=== PATIENT | female | born 1965 | race Two or more races ===

== ENCOUNTER 2020-09-10 08:00 | Outpatient (RCR) | payer MEDICARE, MEDICAID, SELFPAY | END 2020-10-22 13:23 | disposition other institution (70) | LOC: HO.PT 08:00 | PROVIDERS: PCP Family Medicine; Visit Provider Family Medicine | DX: M79.7 Fibromyalgia (principal) | CPT/HCPCS: 97110; 97140 ==

== ENCOUNTER → 2020-11-04 10:37 | Outpatient (BNVA) | payer MEDICARE, MEDICAID, SELFPAY | PROVIDERS: PCP Family Medicine; Visit Provider Nurse Practitioner | DX: Z13.89 Encounter for screening for other disorder (principal) | CPT/HCPCS: Q3014 ==

== ENCOUNTER → 2020-12-16 12:43 | Outpatient (BNVA) | payer MEDICARE, MEDICAID, SELFPAY | PROVIDERS: PCP Family Medicine; Visit Provider Nurse Practitioner | DX: Z13.89 Encounter for screening for other disorder (principal) | CPT/HCPCS: Q3014 ==

== ENCOUNTER → 2021-01-13 07:49 | Outpatient (BNVA) | payer MEDICARE, MEDICAID, SELFPAY | PROVIDERS: PCP Family Medicine; Visit Provider Student in an Organized Health Care Education/Training Program | DX: M25.50 Pain in unspecified joint (principal); M79.7 Fibromyalgia; Z79.899 Other long term (current) drug therapy | CPT/HCPCS: 99212 ==

== ENCOUNTER → 2021-04-19 08:00 | Outpatient (BNVA) | payer MEDICARE, MEDICAID, SELFPAY | PROVIDERS: PCP Family Medicine; Visit Provider Student in an Organized Health Care Education/Training Program | DX: M25.50 Pain in unspecified joint (principal); M77.31 Calcaneal spur, right foot; M77.32 Calcaneal spur, left foot; Z79.899 Other long term (current) drug therapy | CPT/HCPCS: 99212 ==

== ENCOUNTER 2021-04-20 07:38 | Outpatient (REF) | payer MEDICARE, MEDICAID, SELFPAY ==
--- NOTE | ~2021-04-20 | XR_ITS ---
EXAMINATION: XR BILATERAL HAND AND WRIST CLINICAL INFORMATION: Bilateral hand and wrist pain. COMPARISON: Bilateral hands and wrists 05/01/2020 TECHNIQUE: 4 views of each hand and wrist. FINDINGS: RIGHT: Again seen is a plate and screw device distal radius. The hardware appears stable. Degenerative changes are again noted at interphalangeal joints, unchanged when compared to the prior study. Mild degenerative changes are once again seen at the 1st metacarpal-carpal joint as well as the 1st metacarpal-phalangeal joint. No fractures are seen. LEFT: Again seen are mild degenerative changes at the interphalangeal joints with minimal degenerative changes seen at the 1st carpometacarpal joint as well as the 1st metacarpal phalangeal joint. Overall, findings are similar to the prior study. XR/XR hand wrist LT IMPRESSION: Mild degenerative changes. No significant interval change from prior study. Stable postoperative changes on the right.
--- NOTE | ~2021-04-20 | XR_ITS ---
EXAMINATION: XR BILATERAL HAND AND WRIST CLINICAL INFORMATION: Bilateral hand and wrist pain. COMPARISON: Bilateral hands and wrists 05/01/2020 TECHNIQUE: 4 views of each hand and wrist. FINDINGS: RIGHT: Again seen is a plate and screw device distal radius. The hardware appears stable. Degenerative changes are again noted at interphalangeal joints, unchanged when compared to the prior study. Mild degenerative changes are once again seen at the 1st metacarpal-carpal joint as well as the 1st metacarpal-phalangeal joint. No fractures are seen. LEFT: Again seen are mild degenerative changes at the interphalangeal joints with minimal degenerative changes seen at the 1st carpometacarpal joint as well as the 1st metacarpal phalangeal joint. Overall, findings are similar to the prior study. XR/XR hand wrist RT IMPRESSION: Mild degenerative changes. No significant interval change from prior study. Stable postoperative changes on the right.
[2021-04-20 08:37] LABS: MANUAL DIFF FLAG NO
[2021-04-20 08:47] LABS: Basophils Percent Auto 0.6 % (0-2); Eosinophils Absolute Auto 0.2 X10*3/uL (0.0-0.4); Eosinophils Percent Auto 3.8 % (0-4); Hemoglobin 13.2 g/dl (12.0-16.0); Imm Gran Abs Auto 0.01 X10*3/uL (0.00-0.03); Imm Gran Pct Auto 0.2 % (0.0-0.4); Lymphocytes Absolute Auto 2.2 X10*3/uL (1.2-4.9); Lymphocytes Percent Auto 40.9 % (20-40); Mean Corpuscular Hemoglobin 29.8 pg (27.0-33.0); Mean Corpuscular Volume 90.3 fL (80-98); Mean Platelet Volume 11.5 fL (9.4-12.3); Monocytes Absolute Auto 0.5 X10*3/uL (0.1-1.2); Monocytes Percent Auto 8.6 % (2-11); Neutrophils Absolute Auto 2.5 X10*3/uL (2.0-8.3); Neutrophils Percent Auto 45.9 % (45-73); Platelet Count 174 X10*3/uL (160-400); Red Blood Count 4.43 X10*6/uL (4.20-5.50); Red Cell Distribution Width 12.4 % (11.0-16.0); White Blood Count 5.3 X10*3/uL (4.8-10.8)
[2021-04-20 09:14] LABS: Alanine Aminotransferase 12 U/L (0-31); Albumin Level 3.9 g/dL (3.5-5.0); Alkaline Phosphatase 90 U/L (39-117); Anion Gap 8 (12-20); Aspartate Amino Transferase 23 U/L (5-31); Bilirubin Total 0.6 mg/dL (0.0-1.0); Blood Urea Nitrogen 18 mg/dL (9-16); C Reactive Protein 0.42 mg/dL (< or = 0.50); Calcium 9.3 mg/dL (8.4-10.2); Carbon Dioxide 28 mmol/L (22-29); Chloride 107 mmol/L (96-108); Estimated Glomerular Filt Rate > 60; Glucose Random 96 mg/dL (60-115); Potassium 4.3 mmol/L (3.3-5.1); Sodium 139 mmol/L (135-145); Total Protein 6.8 g/dL (6.5-8.0)
[2021-04-20 09:32] LABS: Erythrocyte Sedimentation Rate 23 MM/HR (0-20)
== END 2021-04-20 07:39 | disposition home or self-care (01) ==
LOC: HO.LAB 07:38
PROVIDERS: PCP Family Medicine; Visit Provider Student in an Organized Health Care Education/Training Program
DX: M25.50 Pain in unspecified joint (principal)
CPT/HCPCS: 36415; 73110; 73130; 80053; 85025; 85652; 86140

== ENCOUNTER 2021-04-22 09:00 | Outpatient (RCR) | payer MEDICARE, MEDICAID, SELFPAY | END 2021-06-17 09:13 | disposition home or self-care (01) | LOC: HO.PT 09:00 | PROVIDERS: PCP Family Medicine; Visit Provider Family Medicine | DX: M72.2 Plantar fascial fibromatosis (principal); M54.2 Cervicalgia; M77.31 Calcaneal spur, right foot; M77.32 Calcaneal spur, left foot | CPT/HCPCS: 97033; 97035; 97110; 97140; 97161; 97530 ==

== ENCOUNTER → 2021-06-16 14:16 | Outpatient (BNVA) | payer OTHER, SELFPAY | PROVIDERS: PCP Family Medicine; Visit Provider Nurse Practitioner | DX: K21.9 Gastro-esophageal reflux disease without esophagitis (principal); K59.04 Chronic idiopathic constipation; R14.0 Abdominal distension (gaseous) | CPT/HCPCS: 99212 ==

== ENCOUNTER 2021-10-03 08:00 | Outpatient (RCR) | payer OTHER, SELFPAY | END 2021-10-03 11:04 | disposition home or self-care (01) | LOC: HO.PT 08:00 | PROVIDERS: PCP Family Medicine; Visit Provider Orthopaedic Surgery | DX: M72.2 Plantar fascial fibromatosis (principal) | CPT/HCPCS: 97110; 97140; 97162; 97530 ==

== ENCOUNTER → 2021-10-04 08:18 | Outpatient (BNVA) | payer OTHER, SELFPAY | PROVIDERS: PCP Family Medicine; Visit Provider Nurse Practitioner Family | DX: M25.50 Pain in unspecified joint (principal); M77.31 Calcaneal spur, right foot; M77.32 Calcaneal spur, left foot; M25.512 Pain in left shoulder; Z79.899 Other long term (current) drug therapy | CPT/HCPCS: 99212 ==

== ENCOUNTER 2021-10-20 11:43 | Outpatient (REF) | payer OTHER, SELFPAY ==
--- NOTE | ~2021-10-20 | XR_ITS ---
EXAMINATION: XR SHOULDER, LEFT CLINICAL INFORMATION: Left shoulder pain. COMPARISON: None TECHNIQUE: Four views of the left shoulder. FINDINGS: The bony alignment is intact. The cortices are intact. Mild osteophyte formation is seen at the acromioclavicular joint. Mild subchondral degenerative cysts are noted within the humeral head. The subacromial space is unremarkable. The soft tissues are unremarkable. 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 Soft tissues are unremarkable.
[2021-10-20 12:04] LABS: MANUAL DIFF FLAG NO
[2021-10-20 12:23] LABS: Basophils Percent Auto 0.5 % (0-2); Eosinophils Absolute Auto 0.2 X10*3/uL (0.0-0.4); Hematocrit 44.1 % (37.0-47.0); Hemoglobin 14.5 g/dl (12.0-16.0); Imm Gran Abs Auto 0.02 X10*3/uL (0.00-0.03); Imm Gran Pct Auto 0.3 % (0.0-0.4); Lymphocytes Absolute Auto 2.4 X10*3/uL (1.2-4.9); Lymphocytes Percent Auto 31.6 % (20-40); Mean Corpuscular HGB Conc 32.9 g/dl (31.0-35.0); Mean Corpuscular Hemoglobin 29.6 pg (27.0-33.0); Mean Platelet Volume 10.5 fL (9.4-12.3); Monocytes Absolute Auto 0.5 X10*3/uL (0.1-1.2); Monocytes Percent Auto 6.9 % (2-11); Neutrophils Absolute Auto 4.4 x10*3/uL (2.0-8.3); Neutrophils Percent Auto 58.7 % (45-73); Platelet Count 212 X10*3/uL (160-400); Red Cell Distribution Width 12.9 % (11.0-16.0); White Blood Count 7.5 X10*3/uL (4.8-10.8)
[2021-10-20 12:39] LABS: Alanine Aminotransferase 17 U/L (0-31); Albumin Level 4.4 g/dL (3.5-5.0); Alkaline Phosphatase 98 U/L (39-117); Anion Gap 13 (12-20); Aspartate Amino Transferase 23 U/L (5-31); Bilirubin Total 0.4 mg/dL (0.0-1.0); Blood Urea Nitrogen 17 mg/dL (9-16); C Reactive Protein 1.08 mg/dL (< or = 0.50); Carbon Dioxide 27 mmol/L (22-29); Chloride 106 mmol/L (96-108); Estimated Glomerular Filt Rate > 60; Glucose Random 80 mg/dL (60-115); Potassium 4.2 mmol/L (3.3-5.1); Sodium 142 mmol/L (135-145); Total Protein 8.2 g/dL (6.5-8.0)
[2021-10-20 13:02] LABS: Vitamin D 25-OH Total 19.9 ng/mL (>30)
[2021-10-20 13:19] LABS: Erythrocyte Sedimentation Rate 30 MM/HR (0-20)
== END 2021-10-20 11:44 | disposition home or self-care (01) ==
LOC: HO.XRAY 11:43
PROVIDERS: PCP Family Medicine; Visit Provider Nurse Practitioner Family
DX: M25.50 Pain in unspecified joint (principal); M25.512 Pain in left shoulder
CPT/HCPCS: 36415; 73030; 80053; 82306; 85025; 85652; 86140

== ENCOUNTER → 2021-12-20 14:39 | Outpatient (BNVA) | payer OTHER, SELFPAY | PROVIDERS: PCP Family Medicine; Referring Provider Family Medicine; Visit Provider Nurse Practitioner | DX: K59.04 Chronic idiopathic constipation (principal); K21.9 Gastro-esophageal reflux disease without esophagitis; R14.0 Abdominal distension (gaseous) | CPT/HCPCS: 99212 ==

== ENCOUNTER → 2022-01-19 15:07 | Outpatient (BNVA) | payer OTHER, SELFPAY | PROVIDERS: PCP Family Medicine; Referring Provider Family Medicine; Visit Provider Nurse Practitioner | DX: K30 Functional dyspepsia (principal); K59.04 Chronic idiopathic constipation; K21.9 Gastro-esophageal reflux disease without esophagitis | CPT/HCPCS: 99212 ==

== ENCOUNTER → 2022-02-01 08:52 | Outpatient (BNVA) | payer OTHER, SELFPAY | PROVIDERS: PCP Family Medicine; Visit Provider Nurse Practitioner Family | DX: M25.50 Pain in unspecified joint (principal); M77.31 Calcaneal spur, right foot; M77.32 Calcaneal spur, left foot; M25.512 Pain in left shoulder; E55.9 Vitamin D deficiency, unspecified; Z79.899 Other long term (current) drug therapy | CPT/HCPCS: 99212 ==

== ENCOUNTER 2022-02-03 07:37 | Outpatient (REF) | payer OTHER, SELFPAY ==
[2022-02-03 07:59] LABS: MANUAL DIFF FLAG NO
[2022-02-03 08:06] LABS: Basophils Percent Auto 0.8 % (0-2); Eosinophils Absolute Auto 0.1 X10*3/uL (0.0-0.4); Eosinophils Percent Auto 2.7 % (0-4); Hematocrit 43.6 % (37.0-47.0); Imm Gran Abs Auto 0.01 X10*3/uL (0.00-0.03); Imm Gran Pct Auto 0.2 % (0.0-0.4); Lymphocytes Absolute Auto 1.9 X10*3/uL (1.2-4.9); Lymphocytes Percent Auto 37.4 % (20-40); Mean Corpuscular HGB Conc 32.1 g/dl (31.0-35.0); Mean Corpuscular Hemoglobin 29.2 pg (27.0-33.0); Mean Platelet Volume 10.2 fL (9.4-12.3); Monocytes Absolute Auto 0.4 X10*3/uL (0.1-1.2); Monocytes Percent Auto 7.4 % (2-11); Neutrophils Absolute Auto 2.7 x10*3/uL (2.0-8.3); Neutrophils Percent Auto 51.5 % (45-73); Platelet Count 194 X10*3/uL (160-400); Red Blood Count 4.79 X10*6/uL (4.20-5.50); White Blood Count 5.2 X10*3/uL (4.8-10.8)
[2022-02-03 08:40] LABS: Alanine Aminotransferase 22 U/L (0-31); Albumin Level 4.1 g/dL (3.5-5.0); Alkaline Phosphatase 94 U/L (39-117); Anion Gap 10 (12-20); Aspartate Amino Transferase 24 U/L (5-31); Bilirubin Total 0.7 mg/dL (0.0-1.0); Blood Urea Nitrogen 13 mg/dL (9-16); C Reactive Protein 0.37 mg/dL (< or = 0.50); Calcium 9.5 mg/dL (8.4-10.2); Carbon Dioxide 28 mmol/L (22-29); Chloride 106 mmol/L (96-108); Estimated Glomerular Filt Rate > 60; Glucose Random 100 mg/dL (60-115); Potassium 3.9 mmol/L (3.3-5.1); Sodium 140 mmol/L (135-145); Total Protein 7.5 g/dL (6.5-8.0)
[2022-02-03 08:45] LABS: Erythrocyte Sedimentation Rate 22 MM/HR (0-20)
[2022-02-08 13:41] LABS: Vitamin D 25-OH, D2 6 ng/mL; Vitamin D 25-OH, D3 22 ng/mL; Vitamin D 25-OH, Total 28 ng/mL (30-100)
== END 2022-02-03 07:38 | disposition home or self-care (01) ==
LOC: HO.LAB 07:37
PROVIDERS: PCP Family Medicine; Visit Provider Nurse Practitioner Family
DX: M25.50 Pain in unspecified joint (principal); R79.89 Other specified abnormal findings of blood chemistry
CPT/HCPCS: 36415; 80053; 82306; 85025; 85652; 86140

== ENCOUNTER → 2022-02-09 12:36 | Outpatient (BNVA) | payer OTHER, SELFPAY | PROVIDERS: PCP Family Medicine; Referring Provider Family Medicine; Visit Provider Nurse Practitioner | DX: K21.9 Gastro-esophageal reflux disease without esophagitis (principal); K59.04 Chronic idiopathic constipation; K30 Functional dyspepsia; R14.0 Abdominal distension (gaseous) | CPT/HCPCS: 99212 ==

== ENCOUNTER → 2022-05-08 13:35 | Outpatient (BNVA) | payer OTHER, SELFPAY | PROVIDERS: PCP Family Medicine; Visit Provider Nurse Practitioner | DX: K30 Functional dyspepsia (principal); K21.9 Gastro-esophageal reflux disease without esophagitis; K59.04 Chronic idiopathic constipation; R14.0 Abdominal distension (gaseous); Z79.899 Other long term (current) drug therapy | CPT/HCPCS: 99212 ==

== ENCOUNTER 2022-05-30 09:14 | Outpatient (REF) | payer OTHER, SELFPAY ==
[2022-05-30 10:42] LABS: MANUAL DIFF FLAG NO
[2022-05-30 10:49] LABS: Basophils Percent Auto 0.5 % (0-2); Eosinophils Absolute Auto 0.1 X10*3/uL (0.0-0.4); Eosinophils Percent Auto 1.4 % (0-4); Hematocrit 44.3 % (37.0-47.0); Hemoglobin 14.4 g/dl (12.0-16.0); Imm Gran Abs Auto 0.01 X10*3/uL (0.00-0.03); Imm Gran Pct Auto 0.2 % (0.0-0.4); Lymphocytes Absolute Auto 2.1 X10*3/uL (1.2-4.9); Lymphocytes Percent Auto 32.3 % (20-40); Mean Corpuscular HGB Conc 32.5 g/dl (31.0-35.0); Mean Corpuscular Hemoglobin 29.2 pg (27.0-33.0); Mean Corpuscular Volume 89.9 fL (80.0-98.0); Monocytes Absolute Auto 0.5 X10*3/uL (0.1-1.2); Monocytes Percent Auto 7.9 % (2-11); Neutrophils Absolute Auto 3.7 x10*3/uL (2.0-8.3); Neutrophils Percent Auto 57.7 % (45-73); Platelet Count 204 X10*3/uL (160-400); Red Blood Count 4.93 X10*6/uL (4.20-5.50); Red Cell Distribution Width 13.1 % (11.0-16.0); White Blood Count 6.4 X10*3/uL (4.8-10.8)
[2022-05-30 10:56] LABS: Alanine Aminotransferase 15 U/L (0-31); Aspartate Amino Transferase 26 U/L (5-31); C Reactive Protein 0.61 mg/dL (< or = 0.50); Estimated Glomerular Filt Rate > 60
[2022-05-30 11:19] LABS: Vitamin D 25-OH Total 21.6 ng/mL (>30)
[2022-05-30 11:39] LABS: Erythrocyte Sedimentation Rate 26 MM/HR (0-20)
== END 2022-05-30 09:15 | disposition home or self-care (01) ==
LOC: HO.10HDL 09:14
PROVIDERS: Visit Provider Nurse Practitioner Family
DX: M25.50 Pain in unspecified joint (principal); M77.31 Calcaneal spur, right foot; M77.32 Calcaneal spur, left foot; M25.512 Pain in left shoulder; E55.9 Vitamin D deficiency, unspecified; Z79.899 Other long term (current) drug therapy
CPT/HCPCS: 36415; 82306; 82565; 84450; 84460; 85025; 85652; 86140; 99212

== ENCOUNTER → 2022-07-20 08:24 | Outpatient (BNVA) | payer OTHER, SELFPAY | PROVIDERS: PCP Family Medicine; Visit Provider Student in an Organized Health Care Education/Training Program | DX: M79.7 Fibromyalgia (principal); B18.1 Chronic viral hepatitis B without delta-agent | CPT/HCPCS: 99212 ==

== ENCOUNTER → 2022-11-02 12:43 | Outpatient (BNVA) | payer OTHER, SELFPAY | PROVIDERS: PCP Family Medicine; Visit Provider Nurse Practitioner | DX: K30 Functional dyspepsia (principal); K59.04 Chronic idiopathic constipation; K21.9 Gastro-esophageal reflux disease without esophagitis; R14.0 Abdominal distension (gaseous) | CPT/HCPCS: 99212 ==

== ENCOUNTER 2022-12-19 10:47 | Outpatient (REF) | payer OTHER, SELFPAY ==
--- NOTE | ~2022-12-19 | XR_ITS ---
EXAMINATION: XR ANKLE, RIGHT CLINICAL INFORMATION: Acute right ankle pain 3 weeks ago. COMPARISON: None TECHNIQUE: AP, lateral, and mortise views of the right ankle. FINDINGS: There is no visible acute fracture, dislocation or subluxation. The ankle mortise and subtalar joints are normal. There is a small retrocalcaneal spur and a calcaneal healed enthesophyte. Mild lateral malleolar soft tissue swelling seen. XR/XR ankle RT min 3V IMPRESSION: No acute fracture or dislocation. Small retrocalcaneal spur and moderate size calcaneal heel enthesophyte. Mild lateral malleolar soft tissue swelling likely ligamentous injury.
== END 2022-12-19 10:48 | disposition home or self-care (01) ==
LOC: HO.XRAY 10:47
PROVIDERS: Absent Provider Family Medicine; PCP Family Medicine; Visit Provider Internal Medicine
DX: M25.571 Pain in right ankle and joints of right foot (principal); Z91.81 History of falling
CPT/HCPCS: 73610

== ENCOUNTER → 2023-01-18 11:01 | Outpatient (BNVA) | payer OTHER, SELFPAY | PROVIDERS: PCP Family Medicine; Visit Provider Student in an Organized Health Care Education/Training Program | DX: M79.7 Fibromyalgia (principal); Z79.899 Other long term (current) drug therapy | CPT/HCPCS: 99212 ==

== ENCOUNTER 2023-01-23 09:34 | Emergency (ER) | payer OTHER, SELFPAY ==
--- NOTE | ~2023-01-23 | XR_ITS ---
EXAMINATION: XR WRIST, LEFT CLINICAL INFORMATION: Post reduction COMPARISON: Radiographs from earlier today TECHNIQUE: Two views of the left wrist. FINDINGS: Distal radial metaphyseal fracture with persistent dorsal angulation and displacement of the distal fragment, similar to prior. Mildly displaced ulnar styloid fracture remains. Splinting material now in place. XR/XR wrist LT min 3V IMPRESSION: Unchanged alignment of the displaced distal radial and ulnar fractures.
--- NOTE | ~2023-01-23 | XR_ITS ---
EXAMINATION: XR HAND/WRIST, LEFT XR HAND/WRIST, RIGHT CLINICAL INFORMATION: Fall with pain to the bilateral hand and wrist COMPARISON: 04/20/2021 TECHNIQUE: 3 views of the left hand/wrist. 4 views of the right hand/wrist. FINDINGS: Left hand/wrist: There is an impacted fracture at the distal radial metaphysis. There is dorsal displacement and angulation of the distal fragment by one half shaft width. There is a minimally displaced ulnar styloid fracture. The carpal rows are well aligned. No fractures are seen throughout the hand. Joint spaces are maintained. Soft tissue swelling at the wrist. Right hand/wrist: Fixation hardware noted at the distal radius. Chronic nonunited ulnar styloid fracture. There is an acute intra-articular fracture at the base of the first digit proximal phalanx at the ulnar aspect. Slight offset at the articulation with ossific gap of approximately 0.1 cm. Joint spaces are maintained. Soft tissue swelling at the fracture site. Degenerative change at the fifth digit proximal and distal interphalangeal joints with small osteophytes. XR/XR hand wrist RT IMPRESSION: 1. Impacted and displaced left distal radial metaphyseal fracture. Minimally displaced left ulnar styloid fracture. 2. Acute intra-articular fracture at the base of the right first digit proximal phalanx. Slight offset at the articulation with the ossific gap.
--- NOTE | ~2023-01-23 | XR_ITS ---
EXAMINATION: XR HAND/WRIST, LEFT XR HAND/WRIST, RIGHT CLINICAL INFORMATION: Fall with pain to the bilateral hand and wrist COMPARISON: 04/20/2021 TECHNIQUE: 3 views of the left hand/wrist. 4 views of the right hand/wrist. FINDINGS: Left hand/wrist: There is an impacted fracture at the distal radial metaphysis. There is dorsal displacement and angulation of the distal fragment by one half shaft width. There is a minimally displaced ulnar styloid fracture. The carpal rows are well aligned. No fractures are seen throughout the hand. Joint spaces are maintained. Soft tissue swelling at the wrist. Right hand/wrist: Fixation hardware noted at the distal radius. Chronic nonunited ulnar styloid fracture. There is an acute intra-articular fracture at the base of the first digit proximal phalanx at the ulnar aspect. Slight offset at the articulation with ossific gap of approximately 0.1 cm. Joint spaces are maintained. Soft tissue swelling at the fracture site. Degenerative change at the fifth digit proximal and distal interphalangeal joints with small osteophytes. XR/XR hand wrist LT IMPRESSION: 1. Impacted and displaced left distal radial metaphyseal fracture. Minimally displaced left ulnar styloid fracture. 2. Acute intra-articular fracture at the base of the right first digit proximal phalanx. Slight offset at the articulation with the ossific gap.
--- NOTE | ~2023-01-23 | XR_ITS ---
EXAMINATION: XR ELBOW, LEFT CLINICAL INFORMATION: Fall with pain COMPARISON: None TECHNIQUE: AP, lateral, and oblique views of the left elbow. FINDINGS: There is no fracture or dislocation. Alignment is anatomic. Joint spaces are maintained. No elbow joint effusion. The soft tissues are unremarkable. XR/XR elbow LT min 3V IMPRESSION: Normal left elbow.
--- NOTE | ~2023-01-23 | XR_ITS ---
EXAMINATION: XR WRIST, LEFT CLINICAL INFORMATION: Post reduction COMPARISON: Radiographs from earlier today TECHNIQUE: Two views of the left wrist. FINDINGS: The distal radial metaphyseal fracture is again noted. There is persistent dorsal displacement and angulation of the distal fragment. Alignment is similar to prior. Mild displacement of the ulnar styloid fracture, unchanged. Soft tissue swelling present. The carpal rows remain aligned. XR/XR wrist LT min 3V IMPRESSION: Displaced distal radial and ulnar fractures with similar alignment to prior.
[2023-01-23 09:41] VITALS: BP 110/78; BP 119/70; PULSE 70; PULSE 85; RESP 16; TEMP 36.6; O2SAT 95; O2SAT 98; BMI 29.9
[2023-01-23] MEDS: oxyCODONE HCl Immed Release 5 MG TABLET PO ×2 (10:53→14:14)
--- NOTE | 2023-01-23 11:04 | ED_ITS ---
HPI - Fall General Chief Complaint: Fall Stated Complaint: FALL,?BROKEN WRIST,-LOC,+COLLAR Time Seen by Provider: 01/23/23 09:43 Source: patient, family (Son at bedside) and EMS Mode of arrival: EMS Limitations: language barrier (Ugandan-speaking) History of Present Illness HPI Narrative: 57yoF who is Ugandan-speaking presenting to the ER with complaints of right thumb pain/swelling and left wrist pain/swelling after she had a mechanical fall prior to [place] at the mall in the parking a. She reports that she went to the gym and was leaving normal and due to the bad weather of rain and ice and snow when she was leaving the mall in the parking lot she slipped and fell on her buttocks and she tried to stop her fall by putting both arms down. She did not hit her head or lose consciousness. She denies any symptoms prior to the fall. She denies any prolonged down time. She is not on any blood thinners. She denies any paresthesias, weakness or other injuries complaints concerns at this time. 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) Fall from: standing Fall witnessed: no Place fall occurred: street (at [facility] outside ) Loss of consciousness: none Prolonged down time: no Symptoms prior to fall: none Context: tripped/slipped Location of injury - extremities: left: arm (wrist) and right: hand Severity: severe Quality: aching and throbbing Associated symptoms (after fall): denies Related Data Home Medications Medication Instructions Recorded Confirmed albuterol sulfate 90 mcg/actuation 2 puff inhalation Q6H PRN 10/19/20 02/01/22 aerosol inhaler amitriptyline 50 mg tablet 50 mg PO BEDTIME 10/19/20 02/01/22 atorvastatin 40 mg tablet 40 mg PO DAILY 10/19/20 02/01/22 bupropion HCl 300 mg 24 hr tablet, 300 mg PO QAM 10/19/20 02/01/22 extended release fluticasone propionate 220 1 puff inhalation BID 10/19/20 02/01/22 mcg/actuation HFA aerosol inhaler (Flovent HFA) gabapentin 600 mg tablet 600 mg PO TID 10/19/20 02/01/22 montelukast 10 mg tablet 10 mg PO DAILY 10/19/20 02/01/22 (Singulair) propranolol 80 mg capsule,24 80 mg PO DAILY 10/19/20 02/01/22 hr,extended release sumatriptan succinate 100 mg tablet See Rx Instructions PO .COMPLEX 10/19/20 02/01/22 hydroxyzine HCl 50 mg tablet 50 mg PO BEDTIME 06/16/21 02/01/22 melatonin 3 mg tablet 3 mg PO BEDTIME PRN insomnia 06/16/21 02/01/22 prazosin 1 mg capsule 1 mg PO BID 06/16/21 02/01/22 loratadine 10 mg tablet 10 mg PO DAILY 05/08/22 pilocarpine HCl 1 % eye drops 1 drp ophthalmic (eye) Q12H 05/08/22 topiramate 100 mg tablet 100 mg PO BID 05/08/22 buspirone 15 mg tablet 15 mg PO .COMPLEX 05/30/22 fluticasone propionate 50 1 spray intranasal QAM 11/02/22 mcg/actuation nasal spray,suspension Previous Rx's Medication Instructions Recorded magnesium oxide 400 mg (241.3 mg 400 mg PO QAM #30 tabs 11/04/20 magnesium) tablet cock up splint #2 ea 05/30/22 arm brace (Wrist Support One Size) #2 ea 06/06/22 duloxetine 60 mg capsule,delayed 60 mg PO BID #180 caps 07/20/22 release lidocaine 5 % topical patch 1 patch topical DAILY #30 ea 07/20/22 docusate sodium 100 mg capsule 200 mg PO BEDTIME PRN for 07/25/22 constipation #60 caps bisacodyl 5 mg tablet,delayed 10 mg PO BEDTIME 30 days #60 tabs 11/02/22 release (Dulcolax (bisacodyl)) dexlansoprazole 60 mg 60 mg PO BEDTIME #30 caps 11/02/22 capsule,biphase delayed release (Dexilant) linaclotide 290 mcg capsule 290 mcg PO QAM 30 days #30 caps 11/02/22 (Linzess) metoclopramide HCl 10 mg tablet 10 mg PO QID #120 tabs 11/02/22 simethicone 180 mg capsule 180 mg PO QID #120 caps 11/02/22 diclofenac sodium 1 % topical gel 2 g topical BID PRN for pain #100 11/03/22 grams cholecalciferol (vitamin D3) 50 50 mcg PO QAM #30 tabs 12/06/22 mcg (2,000 unit) tablet acetaminophen 500 mg tablet 1,000 mg PO QID PRN fever or pain 01/23/23 (Tylenol Extra Strength) #14 tabs oxycodone 5 mg tablet 5 mg PO Q6H PRN pain #14 tabs 01/23/23 Allergies Allergy/AdvReac Type Severity Reaction Status Date / Time No Known Allergies Allergy Verified 01/18/23 11:30 [No Known Allergies*] Review of Systems Review of Systems: Constitutional : No Weight loss, No Fever, No Chills, No Night Sweats, No Fatigue, No Malaise ENT/Mouth : No Hearing loss, No Ear Pain, No Nasal Congestion, No Sinus Pain, No Hoarseness, No sore throat, No Rhinorrhea, No Swallowing Difficulty Eyes: No Eye Pain, No Swelling, No Redness, No Foreign Body, No Discharge, No Vision Changes Cardiovascular : No Chest Pain, No SOB, No Dyspnea on Exertion, No Orthopnea, No Edema, No Palpitations Respiratory : No Cough, No Sputum, No Wheezing, No Smoke Exposure, No Dyspnea Gastrointestinal : No Nausea, No Vomiting, No Diarrhea, No Constipation, No abdominal Pain, No Hematochezia, No Melena Genitourinary : no irregular bleeding, No Dysuria, No Urinary Frequency, No Hematuria, No Urinary Incontinence, No Urgency, No Flank Pain, No Urinary Flow Changes, No Hesitancy Musculoskeletal : + right thumb joint pain and left wrist joint pain/swelling, No Myalgias Skin : No Skin Lesions, No rash Neuro : No Weakness, No Numbness, No Paresthesias, No Loss of Consciousness, No Dizziness, No Headache Psych : No Anxiety/Panic, No Depression, No SI/HI/AH/VH, No Social Issues, Heme/Lymph: No Bruising, No Bleeding,No Lymphadenopathy Endocrine : No Polyuria, No Polydipsia, No Temperature Intolerance Yes all other systems are reviewed and are negative [facility] Past Medical History Attestation statement: The following information was validated with the patient. Source: old records reviewed, obtained from family and nursing notes reviewed Medical History Fibromyalgia Hepatitis B Long-term use of Plaquenil Surgical History History of open reduction and internal fixation (ORIF) procedure (~02/2018) Hx of abdominoplasty (~2004) Hx of section (~1979) Hx of colonoscopy Family History Family History Father Lung cancer Diabetes Hepatitis Brother Diabetes Lung cancer Sister Gastritis Social History Social History Alcohol intake: never Patient Tobacco Use Status: Never used Tobacco e-Cigarette/Vaping Use: Never Used Advance Directives Date on File: 08/16/20 Physical Exam Vital Signs: Vital Signs: Last Vital Signs Temp 98 F 01/23/23 09:41 Pulse 70 01/23/23 09:41 Resp 16 01/23/23 09:41 BP 119/70 01/23/23 09:41 Pulse Ox 98 01/23/23 09:41 O2 Del Method 01/23/23 09:41 BMI result Body Mass Index 29.9 vital signs have been reviewed as normal and appeared to be correct. Blood pressure normal. Heart rate normal. Respiration rate normal. Temperature normal. Oxygen saturation normal. Appearance: Alert. Oriented X3. No acute distress. Head: Normal external exam. Normocephalic. Atraumatic. No Franco signs noted. No raccoon eyes noted Eyes: PERRLA. EOMI. Conjunctiva and sclera normal. Eyelids normal. ENT: EAC normal. TM's Normal. No septal hematoma noted. No hemotympanum noted. Pharynx normal. Uvula midline. Moist mucous membranes. No lesions/ulcerations or masses noted on the tongue. Normal voice. No trismus noted. No drooling noted. No muffled voice noted. Neck: Normal inspection. Neck supple. FROM. No adenopathy. Thyroid Normal. No tracheal deviation noted. No crepitus is noted. No meningeal signs. No neck mass noted. No signs of trauma noted. CVS: Normal heart rate and rhythm. Heart sound normal. Pulses normal throughout. No murmurs/rales/gallops. Respiratory: No respiratory distress. Painless inspiration. Breath sounds normal. No wheezes/rales/rhonchi noted. Chest nontender. No crepitus is noted. No accessory muscle usage noted or decreased air movement noted. No signs of trauma. Abdomen: Soft and nontender. Nondistended. No guarding. No rigidity. Bowel sounds normal in all 4 quadrants. No distention noted. No organomegaly noted. No visible injury noted. No rebound tenderness. Negative Rovsing sign. Negative obturator's sign. Negative psoas sign. Negative Montano sign. Back: No CVA tenderness. Full range of motion noted. Nontender. No signs of trauma. Patient neuro intact bilaterally and distally on all 4 extremities. Patient's reflexes intact bilaterally and distally on all 4 extremities. No rashes/lesion/induration/fluctuance or signs of infection noted. Skin: Skin warm and dry. Normal skin color. Normal skin turgor. No rashes/lesions/lacerations noted. Extremities: Patient moderate tenderness palpation to the right hand at the proximal aspect of the thumb/MCP with limited range of motion due to pain. No obvious ligamentous or tendon injury noted. She is able to flex and extend the finger although reports pain with flexion of the finger. No obvious ligamentous or tendon injury noted to the thumb or any other fingers to the right hand. She has full range of motion of all other fingers to the right hand and has full range of motion of the right wrist no tenderness is noted. Patient is complaining of tenderness palpation and has an obvious deformity with soft tissue swelling and ecchymosis to the radial aspect of the left wrist with limited range of motion due to pain. No obvious ligamentous or tendon injury noted to the left wrist. Patient with mild tenderness palpation to the left elbow although has full range of motion of the left elbow. No tenderness to the shoulder joints or the right elbow. Otherwise all other extremities exhibit normal range of motion. Neuro: Oriented X 3. No motor deficit. No sensory deficit. Reflexes normal. Normal steady gait. No focal neuro deficits noted. CN's II-XII intact bilaterally? Vascular: + radial pulses/+ 2 distal pedal pulses/+2 dorsalis pedis b/l. Normal cap refill. No cyanosis noted to upper extremity nails and lower extremity toes nails. Course Course Course Narrative: Patient presenting with right hand/thumb pain and left wrist pain after she had a mechanical fall where she slipped on wet/slippery/snowy floor prior to arrival while she was at the [employer] parking lot after leaving the gym. Denies head injury loss of consciousness or prolonged down time or any symptoms prior to fall. Not on any blood thinners. On exam she has pulses to bilateral radius. She has limited range of motion of the left wrist and an obvious deformities. Right thumb has ecchymosis and soft tissue swelling and limited range of motion due to pain. No anatomical snuffbox tenderness. X-ray of right hand obtained revealed acute intra-articular fracture at the base of the right 1st digit proximal phalanx with slight articulation. Also noted to have a impacted and displaced left distal radial metaphyseal fracture minimally displaced left ulnar styloid fracture. Therefore I attempted to reduce the fracture once with the PA student and the nurse at bedside after performing a hematoma block patient tolerated procedure well although unsuccessful reduction. We attempted the finger traps although this was also unsuccessful with attempted this for approximately 30-40 minutes. Then we attempted reduction again with Dr. Cifuentes at bedside again unsuccessful. We placed her in a sugar- tong splint to the left wrist Kellen thumb spica to the right hand. I consulted with orthopedic physician certified physical therapist assistant Liza who recommended placing her in the splints and attempting the reductions. She reports if reductions are unsuccessful patient will need to follow up tomorrow in the office at 12:30 in the afternoon for further evaluation treatment she might need outpatient surgery. Will instruct patient to follow-up tomorrow with orthopedics Dr. Greene and instructions return if any new or worsening symptoms. Case management also involved to provide services at home due to patient lives alone. Otherwise patient does not use any assistive devices. Patient with son at bedside understand agree this plan. Medications Administered Discontinued Medications Generic Name Dose Route Start Last Admin Trade Name Bridget PRN Reason Stop Dose Admin Bupivacaine HCl 10 ml 01/23/23 11:06 01/23/23 11:42 Bupivacaine Mpf 0.5% 30 Ml Vial SUBCUT 01/23/23 11:07 10 ml ONCE ONE Administration Lidocaine HCl 10 ml 01/23/23 11:06 01/23/23 11:23 Lidocaine Hcl 1 % Mpf 5 Ml Vial SUBCUT 01/23/23 11:07 10 ml ONCE ONE Administration Morphine Sulfate 4 mg 01/23/23 12:26 01/23/23 12:42 Morphine Sulfate 4 Mg/Ml Cartridge IM 01/23/23 12:27 4 mg ONCE ONE Administration Protocol Ondansetron HCl 4 mg 01/23/23 12:26 01/23/23 12:42 Ondansetron Odt 4 Mg Tab.Michelledis ANDERINGU 01/23/23 12:27 4 mg ONCE ONE Administration Oxycodone HCl 5 mg 01/23/23 10:12 01/23/23 10:53 Oxycodone Hcl Immed Release 5 Mg Tablet PO 01/23/23 10:13 5 mg ONCE ONE Administration Procedures Orthopedic Fracture Reduction Fracture #1: Time Out Performed: Yes Side: left Fracture Reduction Location: radius and ulna Analgesia: hematoma block Technique: direct manipulation, traction/counter-traction, traction splint and finger traps Post Reduction X-rays Demonstrate: other (Unsuccessful) Post-reduction neuro exam: intact Post-reduction vascular exam: intact Splint Applied: Yes Patient Tolerated Procedure: well Medical Decision Making Consult Healthcare Provider Management of the patient was discussed with: Switch Box Installer (Orthopedic physician assistant De Jesus) Independent Interpretation I performed an independent interpretation of an: Plain X-Ray (X-ray of right hand and wrist/left hand and wrist/left elbow and post reduction x-rays are reviewed by myself and agreeable radiologist report patient understand results) Radiology Impression Discussion of test interpretation with radiology: I have reviewed the radiologist's reading. Radiologist Impression: FINDINGS: There is no fracture or dislocation. Alignment is anatomic. Joint spaces are maintained. No elbow joint effusion. The soft tissues are unremarkable.? XR/XR elbow LT min 3V IMPRESSION: Normal left elbow. FINDINGS: Left hand/wrist: There is an impacted fracture at the distal radial metaphysis. There is dorsal displacement and angulation of the distal fragment by one half shaft width. There is a minimally displaced ulnar styloid fracture. The carpal rows are well aligned. No fractures are seen throughout the hand. Joint spaces are maintained. Soft tissue swelling at the wrist. Right hand/wrist: Fixation hardware noted at the distal radius. Chronic nonunited ulnar styloid fracture. There is an acute intra-articular fracture at the base of the first digit proximal phalanx at the ulnar aspect. Slight offset at the articulation with ossific gap of approximately 0.1 cm. Joint spaces are maintained. Soft tissue swelling at the fracture site. Degenerative change at the fifth digit proximal and distal interphalangeal joints with small osteophytes. XR/XR hand wrist LT IMPRESSION: 1.? Impacted and displaced left distal radial metaphyseal fracture. Minimally displaced left ulnar styloid fracture. 2.? Acute intra-articular fracture at the base of the right first digit proximal phalanx. Slight offset at the articulation with the ossific gap. ? FINDINGS: Distal radial metaphyseal fracture with persistent dorsal angulation and displacement of the distal fragment, similar to prior. Mildly displaced ulnar styloid fracture remains. Splinting material now in place.? XR/XR wrist LT min 3V IMPRESSION: Unchanged alignment of the displaced distal radial and ulnar fractures. Independent Historian Clinical information obtained from an independent historian. History obtained from or confirmed by: Other (Patient and son at bedside) Prescription Management Patient will be discharged with pain medications for her right thumb and left wrist fracture. Critical Care Time Critical Care Time Critical Care Time: Yes Total Critical Care Time: 60 Attestation: I personally attest to this time spent taking care of the patient Discharge Plan Discharge Clinical Impression: Fall, Fracture of left radius and ulna, Proximal phalanx fracture of finger Patient Disposition: Home, Self-Care Instructions: Arm Fracture in Adults (ED), ORIF of an Arm Fracture (DC) Prescriptions: New acetaminophen [Tylenol Extra Strength] 500 mg tablet 1,000 mg PO QID PRN (Reason: fever or pain) Qty: 14 0RF oxycodone 5 mg tablet 5 mg PO Q6H PRN (Reason: pain) Qty: 14 0RF Rx Instructions: Partial Fill upon patient request. No Action buspirone 15 mg tablet 15 mg PO .COMPLEX Rx Instructions: 15 mg orally; 1 tab in the morning and 2 tabs at night (DME) Wrist Support One Size Misc See Rx Instructions .Route Qty: 2 0RF Rx Instructions: As directed docusate sodium 100 mg capsule 200 mg PO BEDTIME PRN (Reason: for constipation) Qty: 60 6RF diclofenac sodium 1 % gel 2 g topical BID PRN (Reason: for pain) Qty: 100 3RF cholecalciferol (vitamin D3) 50 mcg (2,000 unit) tablet 50 mcg PO QAM Qty: 30 2RF magnesium oxide 400 mg (241.3 mg magnesium) tablet 400 mg PO QAM Qty: 30 6RF Flovent HFA 220 mcg/actuation HFA aerosol inhaler 1 puff inhalation BID albuterol sulfate 90 mcg/actuation HFA aerosol inhaler 2 puff inhalation Q6H PRN sumatriptan succinate 100 mg tablet See Rx Instructions PO .COMPLEX Rx Instructions: take 1 tab at onset of headache; if no relief, may repeat 1 tab after at least 2 hrs; max = 2 tabs/24 hrs PO propranolol 80 mg capsule,extended release 24 hr 80 mg PO DAILY montelukast [Singulair] 10 mg tablet 10 mg PO DAILY gabapentin 600 mg tablet 600 mg PO TID bupropion HCl 300 mg tablet extended release 24 hr 300 mg PO QAM atorvastatin 40 mg tablet 40 mg PO DAILY amitriptyline 50 mg tablet 50 mg PO BEDTIME prazosin 1 mg capsule 1 mg PO BID hydroxyzine HCl 50 mg tablet 50 mg PO BEDTIME melatonin 3 mg tablet 3 mg PO BEDTIME PRN (Reason: insomnia) (DME) cock up splint See Rx Instructions .Route .MEDSUPPLY Qty: 2 0RF Rx Instructions: wear on each wrist at night. pilocarpine HCl 1 % drops 1 drp ophthalmic (eye) Q12H topiramate 100 mg tablet 100 mg PO BID loratadine 10 mg tablet 10 mg PO DAILY duloxetine 60 mg capsule,delayed release(DR/EC) 60 mg PO BID Qty: 180 1RF lidocaine 5 % adhesive patch,medicated 1 patch topical DAILY Qty: 30 1RF Rx Instructions: apply to painful areas for 12 hours max per day. fluticasone propionate 50 mcg/actuation spray,suspension 1 spray intranasal QAM Dexilant 60 mg capsule,biphase delayed releas 60 mg PO BEDTIME Qty: 30 6RF Linzess 290 mcg capsule 290 mcg PO QAM 30 Days Qty: 30 6RF metoclopramide HCl 10 mg tablet 10 mg PO QID Qty: 120 6RF simethicone 180 mg capsule 180 mg PO QID Qty: 120 6RF bisacodyl [Dulcolax (bisacodyl)] 5 mg tablet,delayed release (DR/EC) 10 mg PO BEDTIME 30 Days Qty: 60 6RF Referrals: [facility] [Other] ([facility] will provide physical therapy and occupational therapy. ) Smitha Greene MD [Physician] - 1 day (Call tomorrow or go directly to Dr. Greene office by 12 noon you have an appointment at 12:30 for further evaluation treatment of your fractures you will possibly need surgery) Maryana Winkler MD [Primary Care Provider] - 1 day Print Language: Ugandan
[2023-01-23] MEDS: Lidocaine HCl 1 % MPF 5 ML VIAL 10 ML SUBCUT (11:23)
[2023-01-23] MEDS: Ondansetron ODT 4 MG TAB.RAPDIS TRANSLINGU (12:42)
[2023-01-23] MEDS: Morphine Sulfate 4 MG/ML CARTRIDGE IM (12:42)
--- NOTE | 2023-01-23 13:33 | MHC.CM.ED ---
Addendum entered by Estela Sharma 01/24/23 14:09: Patient accepted by [facility]. Original Note: Received case management consult from Lorraine TORRES. Patient came to the ER due to a fall. Patient found to have left wrist fracture and right hand fx. Met with patient and son, Dale, in regards to discharge planning. Patient is primarily Filipino speaking. Patient's son speaks and understands Zimbabwean and Filipino. 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 Patient lives alone, ambulates independently and had no services prior to coming to the hospital. PCP verified. Patient received 4 Moderna and 1 Pfizer vaccine. Patient is active with [facility]. Patient and Dale agreeable to patient going home. Both are aware [facility] will determine if they will provide services or if referral will have to be sent out. Both verbalized understanding. Dale will transport patient home. Lorraine TORRES aware. Continue to monitor for d/c needs.
[2023-01-23 14:12] VITALS: BP 109/54; PULSE 73; RESP 16; O2SAT 94
== END 2023-01-23 14:18 | disposition home or self-care (01) ==
PROVIDERS: Emergency Provider Emergency Medicine; PCP Family Medicine
DX: S62.511A Displaced fracture of proximal phalanx of right thumb, initial encounter for closed fracture (principal); S52.592A Other fractures of lower end of left radius, initial encounter for closed fracture; S52.612A Displaced fracture of left ulna styloid process, initial encounter for closed fracture; W00.0XXA Fall on same level due to ice and snow, initial encounter; Y93.89 Activity, other specified; Y92.481 Parking lot as the place of occurrence of the external cause; Y99.8 Other external cause status
CPT/HCPCS: 25605; 29125; 64450; 73080; 73110; 73130; 96372; 99202; 99284; J2270

== ENCOUNTER 2023-01-25 06:49 | Day surgery (SDC) | payer OTHER, SELFPAY ==
[2023-01-25] VITALS (12 sets, daily range): BP systolic 109–137; BP diastolic 44–57; PULSE 66–83; RESP 14–16; TEMP 36.7–37; O2SAT 92–98; BMI 29.9
--- NOTE | ~2023-01-25 | FL_ITS ---
EXAMINATION: XR FLUOROSCOPY WITH IMAGES CLINICAL INFORMATION: Left radial distal fracture. COMPARISON: None available. TECHNIQUE: Fluoroscopy Supervised By: Dr. April Greene Fluoroscopy Time: 68.48 seconds Cumulative Dose: 1.82 mGy. DAP: 0.1105 Gycm2. Images: 4. FINDINGS: There is a volar plate and screws stabilizing the distal radial fracture. In addition, there are 2 solitary pins traversing the base of the proximal phalanx fracture 1st digit. Subsequent image reveals angled screws stabilizing the fracture. FL/FL guidance in OR IMPRESSION: 1. Internal fixation of distal radial fracture with volar plate and screws. 2. In addition there are 2 solitary angled screws stabilizing the base of the proximal phalanx avulsed fracture 1st digit.
[2023-01-25] MEDS: Lactated Ringers 1,000 ML 80 ML IVCONT (08:01)
--- NOTE | 2023-01-25 08:03 | HO.ANESPROP2 ---
HPI - Anesthesia Eval Consult details Narrative: orif left wrist , right thumb PMFSH Active Problems Active Problems: All Active Problems (Updated 01/25/23 @ 07:15 by Sera Mahan) GERD (gastroesophageal reflux disease) (Acute) Chronic idiopathic constipation (Acute) Bilateral calcaneal spurs (Acute) Polyarthralgia (Acute) Abdominal bloating (Acute) Left shoulder pain (Acute) Delayed gastric emptying (Acute) Bilateral carpal tunnel syndrome (Acute) Degenerative lumbar spinal stenosis (Acute) Distal radius fracture, left (Acute) Carpal tunnel syndrome of left wrist (Acute) Fracture of proximal phalanx of right thumb (Acute) Hepatitis B (Acute) Long-term use of Plaquenil (Acute) Fibromyalgia (Acute) Past Medical History Medical History (Updated 01/25/23 @ 07:15 by Sera Mahan) Asthma Fibromyalgia Hepatitis B Long-term use of Plaquenil Family History Family History Father Lung cancer Diabetes Hepatitis Brother Diabetes Lung cancer Sister Gastritis Family history of problems with anesthesia: No Surgical History Surgical History (Updated 01/25/23 @ 07:15 by Sera Mahan) H/O breast surgery H/O reduction mammoplasty History of open reduction and internal fixation (ORIF) procedure (~02/2018) Hx of abdominoplasty (~2004) Hx of section (~1979) Hx of colonoscopy History of Problems with Anesthesia: Yes Social History Social History Alcohol intake: never Patient Tobacco Use Status: Never used Tobacco e-Cigarette/Vaping Use: Never Used Use of substances other than those prescribed or required for medical reasons: No Are you DNR?: No Advance Directives: No Advance Directives Information Provided: Yes Advance Directives Date on File: 08/16/20 Meds Allergies Allergy/AdvReac Type Severity Reaction Status Date / Time No Known Allergies Allergy Verified 01/25/23 07:15 [No Known Allergies*] Active Medications: Current Medications Lactated Ringer's (Lr) 1,000 mls @ 80 mls/hr IVCONT .[id number] KIN Last Admin: 01/25/23 08:01 Dose: 80 mls/hr Home Medications Medication Instructions Recorded Confirmed Last Taken Type albuterol sulfate 90 mcg/actuation 2 puff inhalation Q6H PRN asthma 10/19/20 01/25/23 Unknown History aerosol inhaler amitriptyline 50 mg tablet 50 mg PO BEDTIME 10/19/20 01/25/23 Unknown History atorvastatin 40 mg tablet 40 mg PO DAILY 10/19/20 01/25/23 Unknown History bupropion HCl 300 mg 24 hr tablet, 300 mg PO QAM 10/19/20 01/25/23 Unknown History extended release fluticasone propionate 220 1 puff inhalation BID 10/19/20 01/25/23 Unknown History mcg/actuation HFA aerosol inhaler (Flovent HFA) gabapentin 600 mg tablet 600 mg PO TID 10/19/20 01/25/23 Unknown History montelukast 10 mg tablet 10 mg PO DAILY 10/19/20 01/25/23 Unknown History (Singulair) propranolol 80 mg capsule,24 80 mg PO DAILY 10/19/20 01/25/23 Unknown History hr,extended release sumatriptan succinate 100 mg tablet See Rx Instructions PO .COMPLEX 10/19/20 01/25/23 Unknown History hydroxyzine HCl 50 mg tablet 50 mg PO BEDTIME 06/16/21 01/25/23 Unknown History melatonin 3 mg tablet 3 mg PO BEDTIME PRN insomnia 06/16/21 01/25/23 Unknown History prazosin 1 mg capsule 1 mg PO BID 06/16/21 01/25/23 Unknown History loratadine 10 mg tablet 10 mg PO DAILY 05/08/22 01/25/23 Unknown History pilocarpine HCl 1 % eye drops 1 drp ophthalmic (eye) Q12H 05/08/22 01/25/23 Unknown History topiramate 100 mg tablet 100 mg PO BID 05/08/22 01/25/23 Unknown History buspirone 15 mg tablet 15 mg PO .COMPLEX 05/30/22 01/25/23 Unknown History fluticasone propionate 50 1 spray intranasal QAM 11/02/22 01/25/23 Unknown History mcg/actuation nasal spray,suspension Exam Exam Date and Time: January 25, 2023802 Height,Weight and Vital Signs: Height 4 ft 11 in Weight 67.132 kg Last Vital Signs Temp 98.6 F 01/25/23 07:40 Pulse 66 01/25/23 07:40 Resp 16 01/25/23 07:40 BP 137/54 L 01/25/23 07:40 Pulse Ox 98 01/25/23 07:40 O2 Del Method 01/25/23 07:40 Airway Mallampati Class: II TM Dist: >3cm Neck ROM: Full Heart: rrr Lungs: cts Assessment and Plan Final Anesthetic Review Family History of Problems with Anesthesia: No History of Problems with Anesthesia: Yes NPO: Yes ASA Class: II Final Preanesthetic Review: No Changes in Pt Med Stat, Meds/Allgs Chart Reviewed, Consent Obtained/Reviewed and Anes Risks/Benef Reviewed Patient Risk: Intermediate Procedure Risk: Intermediate Anesthetic Plan Anesthetic Plan: GA Disposition: Standard PACU
--- NOTE | 2023-01-25 09:44 | P.OP_ITS ---
Operative Note Operative Note Date of Service: 01/25/23 Narrative: Operative Note Narrative: Preop diagnosis: 1. left Distal radius fracture 2. Left carpal tunnel syndrome 3. Right thumb proximal phalanx base fracture Postop diagnosis: Same Procedure: 1. Left Distal radius fracture open reduction internal fixation, extra- articular 2. Left carpal tunnel release 3. Right thumb proximal phalanx base fracture closed reduction percutaneous pinning Surgeon: Smitha Greene MD Anesthesia: General anesthesia plus regional block Findings: left distal radius fracture with dorsal translation and angulation. Implants: Left: A 3 hole Accu Med volar locking plate, with 4x 2.3 mm locking pegs/screws, and 3 3.5 mm cortical screws Right: 0.045 K-wire x1, 0.035 K-wire x1 Tourniquet time: #1. left 53 minutes, #2. right 0 minutes EBL: 5.0 ml Specimen: None Drains: None Complications: None Disposition: Brought to the recovery room in stable condition Plan: Follow-up in 10-14 days for wound check, suture removal and postop radiographs The patient will likely be placed in a right short-arm thumb spica cast, an possibly a left volar wrist splint based on radiographs. Encouraged no lifting of anything heavier than a cell phone. Please encourage active and passive range of motion of the digits. Follow-up at 4-5 weeks postop for repeat radiographs. Indications: The patient is a 57 year old woman who slipped and fell in the snow sustaining a left distal radius fracture and a fracture of the right thumb proximal phalanx base. The risks and benefits of operative treatment, including but not limited to risk of damage to blood vessels, nerves, tendons, infection, recurrence, persistent pain or numbness, incomplete resolution of preoperative symptoms, or need for further surgery were discussed with the patient and they wished to proceed with surgery. Procedure: Once consent was obtained patient was brought back to the operating suite and placed in the operating table in a supine position. bilateral regional blocks wereperformed by the anesthesia team. Perioperative antibiotics and anesthesia was administered by the anesthesia team. A tourniquet was applied to the proximal aspect of the left upper extremity and the limb was prepped and draped in a standard surgical fashion. The limb was elevated exsanguinated with Esmarch bandage and the tourniquet inflated to 250 mm of mercury for a total tourniquet time of 53 minutes. Once assured that we had a good block, a 2.0 cm longitudinal incision was made centered over the Left carpal tunnel. The incision was made through the skin to the subcutaneous tissues using a #15 blade. Dissection was made down to the level of the transverse carpal ligament with care being taken to protect the palmar cutaneous nerve. Once the transverse carpal ligament was clearly visualized, a longitudinal incision was made in the transverse carpal ligament 1st using a #15 blade, then using tenotomy scissors under direct visualization. Care was taken to look for and protect the motor branch of the median nerve when seen in this area. Once satisfied with our carpal tunnel release the wound was irrigated with normal saline. The FluoroScan was used throughout the case to assess our reduction, and facilitate implant placement. A gentle closed reduction was 1st performed on the patient's left distal radius fracture. Was assessed radiographically before proceeding with the reduction internal fixation. I then made an 8 cm longitudinal incision over the distal aspect of the flexor carpi radialis tendon. The incision was made through the skin to the subcutaneous tissue using a 15. Blade. Then carefully dissected down to flexor carpi radialis tendon she tenotomy scissors. The FCR tendon sheath was then incised longitudinally using tenotomy scissors under direct visualization. The FCR tendon was then retracted ulnarly. I then made a longitudinal incision in the volar forearm fascia through the floor of FCR tendon sheath using tenotomy scissors under direct visualization. I identified the interval between the radial artery and the flexor tendons. This interval was developed further with my index finger, releasing some of the muscular fibers of the flexor pollicis longus. A dull weatlander retractor was then placed. I then created an ulnarly based flap of the pronator quadratus by releasing the radial and distal edges using a 15. B lade. A Winkler elevator was used to elevate the pronator quadratus from the volar surface of the distal radius. This then revealed to us our distal radius fracture. An open reduction was then performed on our distal radius fracture. I then placed a short narrow 3 hole Accu Med volar locking plate on the volar surface of the distal radius. I placed a single K-wire through the distal aspect of the plate and into the distal radius. This was assessed using fluoroscopic images. I was satisfied with the placement of our plate. I then placed 4x 2.3 mm locking screws/pegs in the distal aspect of the plate and distal radius by 1st drilling bicortically with a 1.8 mm drill bit, measuring with a depth gauge, and placing the appropriate length locking screws/pegs. The placement of our plate and screws was then assessed again using fluoroscopic images. The once satisfied with the placement of the volar locking plate and screws on the distal aspect of the distal radius, the plate was then reduced to the shaft of the radius. I then placed 3 x 3.5 mm cortical screws to the proximal aspect of the plate and into the shaft of the radius. This was done by 1st drilling bicortically with a 2.8 mm drill bit, measuring with a depth gauge, and placing the appropriate length screw. Final radiographs were then obtained. The DRUJ was assessed and found to be stable on exam. I was satisfied with our reduction and placement of all implants. At this point the wound was irrigated with normal saline. The tourniquet was then deflated and hemostasis was obtained with a brief period of local pressure and bipolar monopolar electrocautery. The subcutaneous layer was then reapproximated using some 4-0 Vicryl suture, and the skin edges were reapproximated using some 5 0 Prolene suture. The wound was then infiltrated with some 0.5% plain ropivacaine postop pain control. A sterile dressing and a short dorsal splint allowing for active flexion and extension of the digits was applied. The patient appears to have tolerated the procedure well and with no complications. All digits were well vascularized conclusion of the case. ?We then turned our attention to the patient's right hand.? a regional block had also been performed on the right upper extremity by the anesthesia team. A tourniquet was applied to the proximal aspect of the patient's right upper extremity in the limb was then prepped and draped in a standard surgical fashion. The FluoroScan was used throughout the case to assess our fracture reduction and placement of all implants. I performed a closed reduction of the right thumb proximal phalanx base fracture. I then placed a 0.045 K-wire through the volar ulnar fragment. This was advanced transversely across the fracture exiting through the radial aspect of the thumb. I was satisfied with our reduction and placement of this K-wire. I then placed a 0.035 K-wire through the volar ulnar aspect of the base of the proximal phalanx of the right thumb. The K-wire was then advanced across the fracture site and to the radial base of the proximal phalanx. I was very satisfied with our reduction and placement of both implants. The 0.045 K-wire was further withdrawn through the radial side of the digit. Once getting it to an appropriate length the pin was bent cut short and had a K-wire cap applied. The 0.035 K-wire was then bent cut short and had pin cap applied. Final radiographs were obtained and a digital block was performed using some 0.5% plain ropivacaine for postop pain control. Sterile dressing and a short-arm thumb spica splint were then applied. The patient appears to have tolerated the procedure well with no complications. All digits were well vascularized at the conclusion of the case.
[2023-01-25] MEDS: fentaNYL citrate/PF 100 MCG/2 ML VIAL 25 MCG IVPUSH ×2 (13:34→14:05)
[2023-01-25] MEDS: Acetaminophen 325 MG TABLET 650 MG PO (14:02)
[2023-01-25] MEDS: oxyCODONE HCl Immed Release 5 MG TABLET PO (14:02)
[2023-01-25] MEDS: Ketorolac Tromethamine 30 MG/ML VIAL IVPUSH (14:04)
== END 2023-01-25 15:48 | disposition home or self-care (01) ==
PROVIDERS: PCP Family Medicine; Visit Provider Orthopaedic Surgery
PROC: (CPT 25607; principal; 2023-01-25 08:50)
PROC: (CPT 64721; 2023-01-25 08:50)
PROC: (CPT 25607; 2023-01-25 08:50)
DX: S52.502A Unspecified fracture of the lower end of left radius, initial encounter for closed fracture (principal); G56.02 Carpal tunnel syndrome, left upper limb; S62.511A Displaced fracture of proximal phalanx of right thumb, initial encounter for closed fracture; R20.0 Anesthesia of skin; R20.2 Paresthesia of skin; W00.0XXA Fall on same level due to ice and snow, initial encounter; Y93.01 Activity, walking, marching and hiking; Y92.89 Other specified places as the place of occurrence of the external cause; Y99.8 Other external cause status; J45.909 Unspecified asthma, uncomplicated; M79.7 Fibromyalgia; B19.10 Unspecified viral hepatitis B without hepatic coma; Z79.1 Long term (current) use of non-steroidal anti-inflammatories (NSAID); Z79.51 Long term (current) use of inhaled steroids; Z79.899 Other long term (current) drug therapy; Z98.890 Other specified postprocedural states
CPT/HCPCS: 25607; 64721; 26727; C1713; C1769; J0690; J1100; J1885; J2405; J2795; J3010

== ENCOUNTER → 2023-01-29 12:44 | Outpatient (BNVA) | payer OTHER, SELFPAY | PROVIDERS: PCP Family Medicine; Visit Provider Physician Assistant ==

== ENCOUNTER → 2023-01-31 12:50 | Outpatient (BNVA) | payer OTHER, SELFPAY | PROVIDERS: PCP Family Medicine; Visit Provider Orthopaedic Surgery ==

== ENCOUNTER 2023-02-07 13:15 | Outpatient (REF) | payer OTHER, SELFPAY ==
--- NOTE | ~2023-02-07 | XR_ITS ---
EXAMINATION: XR WRIST, LEFT CLINICAL INFORMATION: Left wrist ORIF COMPARISON: 01/23/2023 TECHNIQUE: PA, lateral, and oblique views of the left wrist. FINDINGS: Plate and screw fixation is seen of the comminuted fracture of the distal radial metaphysis. Fracture fragments demonstrate good anatomic alignment and positioning. No evidence of hardware complications. Stable fracture is seen of the ulnar styloid. Radiocarpal joint is well-maintained. XR/XR wrist LT min 3V IMPRESSION: Status post ORIF of left distal radius fracture
--- NOTE | ~2023-02-07 | XR_ITS ---
EXAMINATION: XR HAND, RIGHT CLINICAL INFORMATION: Right hand pain COMPARISON: Right wrist x-ray from 01/23/2023 and fluoroscopic images from ORIF on 01/25/2023 TECHNIQUE: PA, lateral, and oblique views of the right hand. FINDINGS: Surgical K wires are seen through the base of the first proximal phalanx. A comminuted fracture at the base of the first proximal phalanx with stable positioning of the fracture fragments and surgical hardware. There is mild callus formation consistent with interval healing. Remaining osseous structures are intact. Stable postsurgical changes partially visualized in the distal radius XR/XR hand RT min 3V IMPRESSION: Healing comminuted fracture at the base of the first proximal phalanx with stable positioning of the surgical hardware.
== END 2023-02-07 13:16 | disposition home or self-care (01) ==
LOC: HO.HOSX 13:15
PROVIDERS: PCP Family Medicine; Visit Provider Orthopaedic Surgery
DX: G56.02 Carpal tunnel syndrome, left upper limb (principal); S62.511A Displaced fracture of proximal phalanx of right thumb, initial encounter for closed fracture; S52.502A Unspecified fracture of the lower end of left radius, initial encounter for closed fracture
CPT/HCPCS: 73110; 73130

== ENCOUNTER 2023-02-28 11:49 | Outpatient (REF) | payer OTHER, SELFPAY ==
--- NOTE | ~2023-02-28 | XR_ITS ---
EXAMINATION: XR hand RT min 3V, XR wrist LT min 3V CLINICAL INFORMATION: Pain COMPARISON: Hand and wrist radiographs 02/07/2023 TECHNIQUE: 3 views of the right hand and 3 views of the left wrist FINDINGS: RIGHT HAND: 2 percutaneous fixation wires are seen fixating the fracture of the base of the first proximal phalanx in similar alignment. Mild bridging the bony callus formation. Remote left styloid avulsion fracture. Plate and screw fixation of the distal radius. No evidence of hardware fracture or complication. Mild degenerative changes of the proximal and distal interphalangeal joints. No cortical erosion. Soft tissues are unremarkable. LEFT WRIST: Plate and screw fixation of the distal radial fracture with some bridging bony callus formation suggesting ongoing healing. Ulnar styloid avulsion fracture again seen. No evidence of hardware fracture or complication. Joint spaces are maintained. No cortical erosion. Soft tissues are unremarkable. XR/XR hand RT min 3V IMPRESSION: RIGHT HAND: 2 percutaneous fixation wires are seen fixating the fracture of the base of the first proximal phalanx in similar alignment. Mild bridging the bony callus formation. LEFT WRIST: Plate and screw fixation of the distal radial fracture with some bridging bony callus formation suggesting ongoing healing. Ulnar styloid avulsion fracture again seen.
--- NOTE | ~2023-02-28 | XR_ITS ---
EXAMINATION: XR hand RT min 3V, XR wrist LT min 3V CLINICAL INFORMATION: Pain COMPARISON: Hand and wrist radiographs 02/07/2023 TECHNIQUE: 3 views of the right hand and 3 views of the left wrist FINDINGS: RIGHT HAND: 2 percutaneous fixation wires are seen fixating the fracture of the base of the first proximal phalanx in similar alignment. Mild bridging the bony callus formation. Remote left styloid avulsion fracture. Plate and screw fixation of the distal radius. No evidence of hardware fracture or complication. Mild degenerative changes of the proximal and distal interphalangeal joints. No cortical erosion. Soft tissues are unremarkable. LEFT WRIST: Plate and screw fixation of the distal radial fracture with some bridging bony callus formation suggesting ongoing healing. Ulnar styloid avulsion fracture again seen. No evidence of hardware fracture or complication. Joint spaces are maintained. No cortical erosion. Soft tissues are unremarkable. XR/XR wrist LT min 3V IMPRESSION: RIGHT HAND: 2 percutaneous fixation wires are seen fixating the fracture of the base of the first proximal phalanx in similar alignment. Mild bridging the bony callus formation. LEFT WRIST: Plate and screw fixation of the distal radial fracture with some bridging bony callus formation suggesting ongoing healing. Ulnar styloid avulsion fracture again seen.
== END 2023-02-28 11:50 | disposition home or self-care (01) ==
LOC: HO.HOSX 11:49
PROVIDERS: PCP Family Medicine; Visit Provider Orthopaedic Surgery
DX: S52.502D Unspecified fracture of the lower end of left radius, subsequent encounter for closed fracture with routine healing (principal); G56.02 Carpal tunnel syndrome, left upper limb; S62.511D Displaced fracture of proximal phalanx of right thumb, subsequent encounter for fracture with routine healing
CPT/HCPCS: 73110; 73130

== ENCOUNTER 2023-03-28 08:34 | Outpatient (REF) | payer OTHER, SELFPAY ==
--- NOTE | ~2023-03-28 | XR_ITS ---
EXAMINATION: Right hand and left wrist: CLINICAL INDICATION: Follow-up fracture. COMPARISON: Left wrist and right hand 08/15/1923. FINDINGS: LEFT WRIST: There is stabilized distal radial fracture with volar metallic plate and screws in satisfactory alignment. There is slow healing callus formation Slightly displaced ulnar styloid process fracture is stable. The soft tissues are normal. RIGHT HAND: Previously visualized 2 K wires through the proximal phalangeal fracture first digit have been removed. The fracture fragment appears to be in alignment. No additional abnormality seen involving the right hand. Mild loss of PIP all digits is noted. XR/XR hand RT min 3V IMPRESSION: Stable healing left distal radial fracture with volar plate and screws in alignment. 2 K wires in the proximal phalanx proximal segment first digit have been removed. The fracture fragment is in alignment. Mild degenerative changes involving PIP and DIP joints all digits of right hand is noted.
--- NOTE | ~2023-03-28 | XR_ITS ---
EXAMINATION: Right hand and left wrist: CLINICAL INDICATION: Follow-up fracture. COMPARISON: Left wrist and right hand 08/15/1923. FINDINGS: LEFT WRIST: There is stabilized distal radial fracture with volar metallic plate and screws in satisfactory alignment. There is slow healing callus formation Slightly displaced ulnar styloid process fracture is stable. The soft tissues are normal. RIGHT HAND: Previously visualized 2 K wires through the proximal phalangeal fracture first digit have been removed. The fracture fragment appears to be in alignment. No additional abnormality seen involving the right hand. Mild loss of PIP all digits is noted. XR/XR wrist LT min 3V IMPRESSION: Stable healing left distal radial fracture with volar plate and screws in alignment. 2 K wires in the proximal phalanx proximal segment first digit have been removed. The fracture fragment is in alignment. Mild degenerative changes involving PIP and DIP joints all digits of right hand is noted.
== END 2023-03-28 08:35 | disposition home or self-care (01) ==
LOC: HO.HOSX 08:34
PROVIDERS: Visit Provider Orthopaedic Surgery
DX: S52.502D Unspecified fracture of the lower end of left radius, subsequent encounter for closed fracture with routine healing (principal); M79.641 Pain in right hand
CPT/HCPCS: 73110; 73130; 99212

== ENCOUNTER → 2023-04-02 13:49 | Outpatient (BNVA) | payer OTHER, SELFPAY | PROVIDERS: PCP Family Medicine; Visit Provider Nurse Practitioner Family | DX: M47.816 Spondylosis without myelopathy or radiculopathy, lumbar region (principal); M53.3 Sacrococcygeal disorders, not elsewhere classified; M79.7 Fibromyalgia; M62.838 Other muscle spasm; M54.50 Low back pain, unspecified; M79.604 Pain in right leg | CPT/HCPCS: 99202 ==

== ENCOUNTER → 2023-04-26 12:36 | Outpatient (BNVA) | payer OTHER, SELFPAY | PROVIDERS: Visit Provider Nurse Practitioner | DX: K21.9 Gastro-esophageal reflux disease without esophagitis (principal); K59.04 Chronic idiopathic constipation; K30 Functional dyspepsia | CPT/HCPCS: 99212 ==

== ENCOUNTER 2023-05-08 14:30 | Outpatient (RCR) | payer OTHER, SELFPAY ==
--- NOTE | 2023-04-11 16:11 | MHC.OT.EP ---
[address] [phone] Occupational Therapy Plan of Care Patient Name: Tiffany Vergara Date of Evaluation: 04/11/23 Diagnosis: Pt is s/p Left Distal radius fracture open reduction internal fixation, extra-articular, Left carpal tunnel release and Right thumb proximal phalanx base fracture closed reduction percutaneous pinning by Dr. Greene on 01/25/23. Pain Location: Pain in left wrist Current: 5/10 w/ pain medication Worst: 7/10 Best: 5/10 Pain Score: 5 Pain Scale Used: Numeric (0 - 10) Aggravating Factors: Lifting, weightbearing Alleviating Factors: Ice, pain medication Assessment: Pt is a 57 y/o female s/p Left Distal radius fracture open reduction internal fixation, extra-articular, Left carpal tunnel release and Right thumb proximal phalanx base fracture closed reduction percutaneous pinning by Dr. Greene on 01/25/23. Pt presents with limited left wrist and thumb AROM, 5/10 pain in wrist, decreased gross grasp strength, and decreased IND with ADL's/IADL's. She reports the hypersensitivity over scar sites have been improving. Gross grasp strength on the left is 5# and a 65.9% limitation is reported per the Quick DASH assessment. Tiffany would benefit from skilled OT to address noted barriers and maximize functional IND. Frequency and Duration: The patient will be seen 2x/wk for 4 weeks Short Term Goals: Decrease pain to <3/10 IND with scar massage Pt will be able to make full composite fist Improve L thumb AROM to be able to grasp cup Occupational Therapist Per Diem Goals: Pain free with BADL's/IADL's IND with progression of HEP Improve left wrist AROM to WFL's Gross grasp >10# Quick DASH < 30% Treatment Plan: Therapeutic Exercise Therapeutic Activity Home Exercise Program Patient Education Paraffin Fluidotherapy MHP Joint Mobilization Soft Tissue Mobilization Electronically Signed By: Stefanie Snow MS OTR/L Please Sign and return to therapist. Thank you once again for your referral.
--- NOTE | 2023-05-08 16:11 | MHC.OT.DC ---
[address] [phone] F: [phone] Occupational Therapy Discharge Note Patient Name: Tiffany Vergara Provider: Smitha Greene Diagnosis: Pt is s/p Left Distal radius fracture open reduction internal fixation, extra-articular, Left carpal tunnel release and Right thumb proximal phalanx base fracture closed reduction percutaneous pinning by Dr. Greene on 01/25/23. Date of Surgery: 01/25/23 Date of Evaluation: 04/11/23 Date of Discharge: 05/08/23 Treatments to Date: 7 Discharge Status: Achieved Goals Improved Function Independent with HEP Discharge Summary: Pt is s/p Left Distal radius fracture open reduction internal fixation, extra-articular, Left carpal tunnel release and Right thumb proximal phalanx base fracture closed reduction percutaneous pinning by Dr. Greene on 01/25/23. Tiffany has progressed very well in OT and met all goals set on admission. Functional gains as follows: Pt. is pain free at rest and with BADLs. Left wrist ROM has returned to WFL's and gross grasp strength increased to 18# (from 5#). Pt. is very compliant with home exercise program as well as scar management. At this time, pt. is in agreement with discharge to [facility]. Electronically Signed By: Stefanie Snow MS OTR/L Reviewed/agree with student documentation: Therapist: Please Sign and return to therapist, thank you for your referral.
== END 2023-05-08 16:12 | disposition home or self-care (01) ==
LOC: HO.OT 14:30
PROVIDERS: PCP Family Medicine; Visit Provider Orthopaedic Surgery
DX: G56.02 Carpal tunnel syndrome, left upper limb (principal); S52.502A Unspecified fracture of the lower end of left radius, initial encounter for closed fracture; S62.511A Displaced fracture of proximal phalanx of right thumb, initial encounter for closed fracture
CPT/HCPCS: 97018; 97110; 97140; 97165

== ENCOUNTER → 2023-05-09 12:41 | Outpatient (BNVA) | payer OTHER, SELFPAY | PROVIDERS: Visit Provider Orthopaedic Surgery ==

== ENCOUNTER 2023-05-19 13:15 | Outpatient (REF) | payer OTHER, SELFPAY ==
--- NOTE | ~2023-05-19 | MR_ITS ---
EXAMINATION: MR LUMBAR SPINE WITHOUT CONTRAST CLINICAL INFORMATION: Low back pain. COMPARISON: Lumbar spine radiographs 01/22/2017. TECHNIQUE: MRI of the lumbar spine was obtained using routine sequences without contrast. FINDINGS: Alignment is normal. Vertebral heights are preserved. No acute bone marrow signal changes. There is disc desiccation at multiple levels without substantial loss of intervertebral disc height. The tip of the conus medullaris is located at L1-L2. No mass effect on the conus. Visualized distal cord signal intensity is normal. At L1-L2 there is a small right central protrusion. No canal stenosis. No mass effect on the traversing or foraminal nerve roots. At L2-L3 the annular contour is normal. No canal stenosis. No mass effect on the traversing or foraminal nerve roots. At L3-L4 there is a slightly bulging disc. Bilateral facet degenerative change. No canal stenosis. No mass effect on the traversing or foraminal nerve roots. At L4-L5 there is a bulging disc. Bilateral facet degenerative change. No canal stenosis. Asymmetric narrowing of the right subarticular zone causes subtle abutment of the right traversing L5 nerve roots. No foraminal nerve root compression. At L5-S1 the annular contour is normal. Advanced bilateral facet degenerative change. No canal stenosis. No mass effect on the traversing or foraminal nerve roots. Limited visualization of the retroperitoneal anatomy reveals no abnormal finding. Psoas and paraspinal muscle groups are symmetric. MR/MR lumbar spine wo con IMPRESSION: There is disc degeneration at multiple levels within the lumbar spine. No canal stenosis. Asymmetric narrowing of the right subarticular zone at L4-L5 causes subtle abutment of the right traversing L5 nerve roots. Otherwise no substantial mass effect on the traversing or foraminal nerve roots elsewhere within the lumbar spine.
== END 2023-05-19 13:16 | disposition home or self-care (01) ==
LOC: HO.MRI 13:15
PROVIDERS: Visit Provider Nurse Practitioner Family
DX: M54.50 Low back pain, unspecified (principal); M79.604 Pain in right leg; M47.816 Spondylosis without myelopathy or radiculopathy, lumbar region
CPT/HCPCS: 72148

== ENCOUNTER 2023-05-23 08:51 | Outpatient (REF) | payer OTHER, SELFPAY ==
--- NOTE | ~2023-05-23 | US_ITS ---
EXAMINATION: US ABDOMEN COMPLETE CLINICAL INFORMATION: Chronic viral hepatitis B. COMPARISON: Ultrasound abdomen complete 04/09/2014. TECHNIQUE: Real-time imaging of the abdominal viscera. FINDINGS: PANCREAS: The pancreas appears unremarkable, without masses or ductal dilatation, with the exception of the tail which is obscured by bowel gas. ABDOMINAL AORTA: The proximal, mid, and distal segments are normal in caliber. INFERIOR VENA CAVA: Visualized portions are normal. LIVER: The liver is normal in size. The liver contour is normal. Parenchymal echogenicity is normal. No focal hepatic lesion. There is no intrahepatic biliary duct dilatation seen. GALLBLADDER: The gallbladder is physiologically distended without evidence of stones, sludge, polyps, wall thickening or pericholecystic fluid. COMMON BILE DUCT: Normal in caliber measuring 0.4 cm in diameter. RIGHT KIDNEY: There is mild fullness in the renal pelvis but no hydronephrosis. No renal calculi or focal parenchymal lesions. The kidney measures 9.3 cm in maximum dimension. LEFT KIDNEY: No hydronephrosis. No renal calculi or focal parenchymal lesions. The kidney measures 10.3 cm in maximum dimension. SPLEEN: Normal. The spleen measures 8.2 cm in maximum dimension. FREE FLUID: None. US/US abdomen complete IMPRESSION: No significant abnormality is seen.
== END 2023-05-23 08:52 | disposition home or self-care (01) ==
LOC: HO.US 08:51
PROVIDERS: Visit Provider Family Medicine
DX: B18.1 Chronic viral hepatitis B without delta-agent (principal)
CPT/HCPCS: 76700

== ENCOUNTER 2023-06-14 09:28 | Outpatient (AMB) | payer OTHER, SELFPAY ==
[2023-06-14 09:29] VITALS: BP 119/60; PULSE 64; O2SAT 100; BMI 27.1
--- NOTE | 2023-06-14 09:29 | MHC.OFFVIS ---
Intake Vital Signs 06/14/23 09:29 Height 4 ft 11 in Weight 134 lb BMI 27.1 BP 119/60 Blood Pressure Location Lt brachial Position Sitting Pulse 64 Pulse Source Pulse Oximeter Pulse Oximetry (%) 100 Oxygen Delivery Method Room Air Intake Visit Reasons: MRI results Intake Note: Pain today 02/19 Controller Repairer And Tester Required: No Accompanied by: Self / Same As Patient Allergies No Known Allergies [No Known Allergies*] Allergy (Verified 06/14/23 09:33) HPI HPI Comments History of Present Illness Details Patient presents today to review recent lumbar spine MRI results and follow up. Patient continues to endorse right sided radicular back pain as well as axial low back pain. She also reports increase in neck pain with right side turns, especially with driving. Denies any numbness, tingling or weakness of upper extremities. Reports NSAIDs and massage does not alleviate her neck pain, but baclofen and heat therapy provide mild relief. Denies any recent cough, cold, infection, fever or other significant changes in medical history since last office visit. Patient denies any bladder or bowel incontinence or saddle anesthesia. PRIOR: Patient is a pleasant 57 years old female with prior history of asthma, arthritis, headaches, breast reduction surgery, polyarthralgia, carpal tunnel syndrome, lumbar degenerative spinal stenosis, and fibromyalgia presents today for initial evaluation of low back pain, leg and feet, both hands pain. She reports pain started in 2013 due to a mechanical fall out of bed. She denies any recent trauma, injury, or falls. Today we focused on low back pain evaluation. Her back pain is axial and also radiates to her right lower extremity laterally and anteriorly with associated numbness, tingling, and intermittent weakness. Pain is aggravated with bending, walking or standing as well as changing positions. She cannot sleep normally or do her activities due to pain. She notes that acupuncture and 10s unit has been helpful. Her pain is minimal during sitting but increases to 8/10 with walking. Patient is currently unemployed and has been on permanent disability for several years. Patient denies previous spine surgery or injections. Denies fever, abdominal or groin pain, bowel or bladder incontinence, or saddle anesthesia. Location Low back pain Duration Chronic since 2013 Characteristics of symptom or complaint Spasming, aching, stabbing, cramping, aching, heavy, pulling, sore Aggravating or associated factors Walking, standing, changing positions, weather changes Relieving factors Topical creams, lidocaine patches, Tylenol, Ibuprofen, rest, heat therapy Treatment Physical therapy, acupuncture, TENS unit [facility] Medical History Asthma Fibromyalgia Hepatitis B Long-term use of Plaquenil Surgical History H/O breast surgery H/O reduction mammoplasty History of open reduction and internal fixation (ORIF) procedure (~02/2018) Hx of abdominoplasty (~2004) Hx of section (~1979) Hx of colonoscopy Family History Father Lung cancer Diabetes Hepatitis Brother Diabetes Lung cancer Sister Gastritis Social History Alcohol intake: never Patient Tobacco Use Status: Never used Tobacco e-Cigarette/Vaping Use: Never Used Advance Directives Date on File: 08/16/20 Review of Systems Const All systems reviewed & are unremarkable except as noted in HPI and below Physical Exam General: Appears afebrile. Alert and oriented. Mood and affect appropriate. Follows and participates in conversation appropriately. Respiratory effort is unlabored. Able to transition from sit to stand unassisted. Ambulates with bilaterally normal heel strike and toe off with mild difficulty on the right. SLR testing positive on the right, worsens with dorsiflexion. Neck Neck: Yes normal visual inspection, Yes no lymphadenopathy, Yes supple, No anterior neck swelling and Yes no JVD Back/Spine/Pelvis Cervical Spine: cervical muscular tenderness, pain with cervical ROM and No Cervical spine tenderness Thoracic/Lumbar Spine: thoracic and lumbar spine normal to inspection, Lasegue's sign positive on the right, No thoracic spinal tenderness and lumbar spinal tenderness Sacroiliac joints: bilaterally tender to palpation Results Reviewed Results Reviewed: MR LUMBAR SPINE WITHOUT CONTRAST 05/19/23 CLINICAL INFORMATION: Low back pain. COMPARISON: Lumbar spine radiographs 01/22/2017. TECHNIQUE: MRI of the lumbar spine was obtained using routine sequences without contrast. FINDINGS: Alignment is normal. Vertebral heights are preserved. No acute bone marrow signal changes. There is disc desiccation at multiple levels without substantial loss of intervertebral disc height. The tip of the conus medullaris is located at L1-L2. No mass effect on the conus. Visualized distal cord signal intensity is normal. At L1-L2 there is a small right central protrusion. No canal stenosis. No mass effect on the traversing or foraminal nerve roots. At L2-L3 the annular contour is normal. No canal stenosis. No mass effect on the traversing or foraminal nerve roots. At L3-L4 there is a slightly bulging disc. Bilateral facet degenerative change. No canal stenosis. No mass effect on the traversing or foraminal nerve roots. At L4-L5 there is a bulging disc. Bilateral facet degenerative change. No canal stenosis. Asymmetric narrowing of the right subarticular zone causes subtle abutment of the right traversing L5 nerve roots. No foraminal nerve root compression. At L5-S1 the annular contour is normal. Advanced bilateral facet degenerative change. No canal stenosis. No mass effect on the traversing or foraminal nerve roots. Limited visualization of the retroperitoneal anatomy reveals no abnormal finding. Psoas and paraspinal muscle groups are symmetric. IMPRESSION: There is disc degeneration at multiple levels within the lumbar spine. No canal stenosis. Asymmetric narrowing of the right subarticular zone at L4-L5 causes subtle abutment of the right traversing L5 nerve roots. Otherwise no substantial mass effect on the traversing or foraminal nerve roots elsewhere within the lumbar spine. Assessment & Plan Assessment & Plan (1) Cervical spondylosis: Code(s): M47.812 - Spondylosis without myelopathy or radiculopathy, cervical region (2) Lumbar spondylosis: Code(s): M47.816 - Spondylosis without myelopathy or radiculopathy, lumbar region (3) Sacroiliac joint pain: Code(s): M53.3 - Sacrococcygeal disorders, not elsewhere classified (4) Low back pain radiating to right lower extremity: Code(s): M54.50 - Low back pain, unspecified; M79.604 - Pain in right leg (5) Fibromyalgia: Code(s): M79.7 - Fibromyalgia Plan 1. Schedule Right L4-L5 TFESI with local and sedation for right radicular back pain. 2. Tentatively plan for Bilateral Diagnostic L3-L4 DR L5 MBBs for potential Sprint PNS trial for axial low back pain. 3. Cervical spine imaging to assess degree of degenerative changes, any subluxation, listhesis or pars defects. Continue NSAIDs, baclofen, heat therapy, gentle stretching exercises and good posture. All questions and concerns have been answered and patient agreed with the plan. Follow up after injection and sooner as needed. Anticoagulation: Patient not on anticoagulant Justification for interventional therapy: ? Patient with average pain > 6/10 ? Patient has exhausted conservative therapy, NSAIDs, physical therapy Orders: Orders XR cervical spine 3V Today M47.812 - Spondylosis without myelopathy or radiculopathy, cervical region Medications: Refilled baclofen 10 mg PO BID 30 days PRN 60 tabs 3RF muscle spasm M62.838 - Other muscle spasm, M79.7 - Fibromyalgia Coding Level of Care Code Est Pt Level 4 (75242) Diagnoses Cervical spondylosis M47.812 Lumbar spondylosis M47.816 Sacroiliac joint pain M53.3 Low back pain radiating to right lower extremity M54.50; M79.604 Fibromyalgia M79.7
== END 2023-06-14 09:42 | disposition home or self-care (01) ==
PROVIDERS: PCP Family Medicine; Visit Provider Nurse Practitioner Family
DX: M47.812 Spondylosis without myelopathy or radiculopathy, cervical region (principal); M47.816 Spondylosis without myelopathy or radiculopathy, lumbar region; M53.3 Sacrococcygeal disorders, not elsewhere classified; M54.50 Low back pain, unspecified; M79.604 Pain in right leg; M79.7 Fibromyalgia
CPT/HCPCS: 99214

== ENCOUNTER → 2023-06-14 09:28 | Outpatient (BNVA) | payer OTHER, SELFPAY | PROVIDERS: PCP Family Medicine; Visit Provider Nurse Practitioner Family | DX: M47.812 Spondylosis without myelopathy or radiculopathy, cervical region (principal); M47.816 Spondylosis without myelopathy or radiculopathy, lumbar region; M53.3 Sacrococcygeal disorders, not elsewhere classified; M54.50 Low back pain, unspecified; M79.604 Pain in right leg; M79.7 Fibromyalgia | CPT/HCPCS: 99212 ==

== ENCOUNTER 2023-10-25 12:49 | Outpatient (AMB) | payer OTHER, SELFPAY ==
--- NOTE | 2023-10-25 12:50 | MHC.OFFVIS ---
Intake Vital Signs 10/25/23 12:52 Height 4 ft 11 in Weight 116 lb BMI 23.4 BP 93/50 L Blood Pressure Location Lt brachial Position Sitting Pulse 61 Intake Visit Reasons: 6 mnth follow up Intake Note: Tiffany presents in the office as 6 months follow up of GERD. CC: Patient states she sometimes has abdominal bloating, and occasional nausea. Denies other GI symptoms today. Manufacturing Engineering Technologist Required: No Manufacturing Engineering Technologist Name: Kimo Napoles727 Accompanied by: Self / Same As Patient Allergies No Known Allergies [No Known Allergies*] Allergy (Verified 10/25/23 12:54) HPI 6 mnth follow up HPI Details Assessment & Plan (1) GERD (gastroesophageal reflux disease): Code(s): K21.9 - Gastro-esophageal reflux disease without esophagitis Plan: [place] She fell and broke the thumb on the left hand. However it is healing well at this time. She continues to be happy with her GI regimen and feels that it is stable. She continues on her Reglan 10 mg 4 times a day, Linzess 290 micro g, Dexilant, and bisacodyl for occasional breakthrough constipation. Return office visit in 6 months (2) Chronic idiopathic constipation: Code(s): K59.04 - Chronic idiopathic constipation (3) Delayed gastric emptying: Code(s): K30 - Functional dyspepsia Medications: Refilled bisacodyl (Dulcola x (bisacodyl)) 10 mg (2 x 5 mg) P O BEDTIME 30 days 60 tabs 6RF K59.04 - Chronic i diopathic constipa tion dexlansoprazole (D exilant) 60 mg PO BEDTIME 30 caps 6RF K21.9 - Gastro-eso phageal reflux dis ease without esoph agitis docusate sodium 200 mg (2 x 100 mg ) PO BEDTIME PRN 6 0 caps 6RF for con stipation K59.04 - Chronic i diopathic constipa tion linaclotide (Linze ss) 290 mcg PO QAM 30 days 30 caps 6RF K59.04 - Chronic i diopathic constipa tion metoclopramide HCl 10 mg PO QID 120 tabs 6RF magnesium oxide 400 mg PO QAM 30 tabs 6RF K59.04 - Chronic i diopathic constipa tion simethicone 180 mg PO QID 120 caps 6RF R14.0 - Abdominal distension (gaseou s) TODAY'S VISIT [place] #[id number] She continues on her Reglan 10 mg 4 times a day, Linzess 290 micro g, Dexilant, and bisacodyl for occasional breakthrough constipation. At this point she is quite satisfied with her GI regimen and her level of control. She has lost > 60lbs r/t intentional dieting! ROV 6 mos. PFS Medical History Asthma Hepatitis B Long-term use of Plaquenil Fibromyalgia Surgical History H/O breast surgery H/O reduction mammoplasty Hx of abdominoplasty (~2004) History of open reduction and internal fixation (ORIF) procedure (~02/2018) Hx of section (~1979) Hx of colonoscopy Family History Father Lung cancer Diabetes Hepatitis Brother Diabetes Lung cancer Sister Gastritis Social History Alcohol intake: never Patient Tobacco Use Status: Never used Tobacco e-Cigarette/Vaping Use: Never Used Advance Directives Date on File: 08/16/20 Review of Systems Const Denies fatigue, Denies fever(s), Denies night sweats, Denies poor appetite and Denies weight loss ENT Reports Normal hearing present, Denies dental pain, Denies dysphagia, Denies hearing loss, Denies mouth pain, Denies odynophagia, Denies throat swelling, Denies tongue swelling and Reports other (Dentition adequate) Card Reports no additional complaints Resp Reports no additional complaints GI Denies abdominal pain, Denies melena, Denies bloating, Denies hematochezia, Reports constipation, Denies GI cramping, Denies dysphagia, Denies excessive flatus, Reports early satiety, Reports heartburn, Denies diarrhea, Denies nausea, Denies odynophagia, Denies vomiting and Denies hematemesis Skin/Breast Denies pruritus, Denies lesions, Denies rash and Denies jaundice Neuro Reports Normal hearing present and Denies Abnormal speech present Endo Denies fatigue Aller/Immun Denies throat swelling and Denies tongue swelling Physical Exam Vital Signs: Last Vital Signs Pulse 61 10/25/23 12:52 BP 93/50 L 10/25/23 12:52 BMI result Body Mass Index 23.4 Const General: cooperative, no acute distress, well developed and well groomed Nutritional Appearance: average body habitus and well nourished Orientation/consciousness: oriented to person, oriented to place and oriented to time Limitations: No language barrier HEENT Head: Yes normocephalic and Yes atraumatic Eyes General: appearance normal, both eyes and all related structures Pupils: Equal, round and reactive pupils present Neck Neck: Yes normal visual inspection and Yes no lymphadenopathy Thyroid: Thyroid normal Resp Effort & Inspection: normal respiratory effort and able to speak in complete sentences Auscultation: clear to auscultation bilaterally Cardio Rate: regular rate Rhythm: regular rhythm Heart sounds: Normal, physiologic split S2 sound present Peripheral pulses: radial pulses present and posterior tibial pulses present GI Inspection: No distended and No Abdominal panniculus present Palpation (GI): Soft to palpation, nontender, no guarding, not rigid and No hepatosplenomegaly present Percussion: Yes normal to percussion Auscultation: normal bowel sounds Rectal Exam - Female: deferred Skin General skin exam: no rashes or lesions noted, turgor normal, skin not dry, no jaundice, No spider nevi and no striae Rashes: no rashes Nails: normal Neuro General: oriented to person, oriented to place and oriented to time Cranial nerves: Yes Equal, round and reactive pupils present and Yes Normal hearing present Speech: No Abnormal speech present Extrem General: Yes normal to inspection, No clubbing, No cyanosis and No edema Psych Appearance: grossly normal and well kempt Mental Status: mental status grossly normal Speech and movement: Normal speech and movement present Affect: normal affect Attitude: cooperative Thought process: Normal thought process present and not confabulating Thought content: Normal thought content present Insight: Limited insight present (Psych) Judgement: Limited judgement present (Psych) Assessment & Plan Assessment & Plan (1) GERD (gastroesophageal reflux disease): Code(s): K21.9 - Gastro-esophageal reflux disease without esophagitis (2) Chronic idiopathic constipation: Code(s): K59.04 - Chronic idiopathic constipation (3) Delayed gastric emptying: Code(s): K30 - Functional dyspepsia Plan Hungarian #[id number] She continues on her Reglan 10 mg 4 times a day, Linzess 290 micro g, Dexilant, and bisacodyl for occasional breakthrough constipation. At this point she is quite satisfied with her GI regimen and her level of control. She has lost > 60lbs r/t intentional dieting! ROV 6 mos. Medications: Refilled dexlansoprazole (Dexilant) 60 mg PO BEDTIME 30 caps 6RF K21.9 - Gastro-esophageal reflux disease without esophagitis bisacodyl (Dulcolax (bisacodyl)) 10 mg (2 x 5 mg) PO BEDTIME 30 days 60 tabs 6RF K59.04 - Chronic idiopathic constipation docusate sodium 200 mg (2 x 100 mg) PO BEDTIME PRN 60 caps 6RF for constipation K59.04 - Chronic idiopathic constipation magnesium oxide 400 mg PO QAM 30 tabs 6RF K59.04 - Chronic idiopathic constipation metoclopramide HCl 10 mg PO QID 120 tabs 6RF linaclotide (Linzess) 290 mcg PO QAM 30 caps 6RF K59.04 - Chronic idiopathic constipation simethicone 180 mg PO QID 120 caps 6RF R14.0 - Abdominal distension (gaseous) Coding Level of Care Code Est Pt Level 3 (93521) Diagnoses GERD (gastroesophageal reflux disease) K21.9 Chronic idiopathic constipation K59.04 Delayed gastric emptying K30
[2023-10-25 12:52] VITALS: BP 93/50; PULSE 61; BMI 23.4
== END 2023-10-25 13:23 | disposition home or self-care (01) ==
PROVIDERS: PCP Family Medicine; Visit Provider Nurse Practitioner
DX: K21.9 Gastro-esophageal reflux disease without esophagitis (principal); K59.04 Chronic idiopathic constipation; K30 Functional dyspepsia
CPT/HCPCS: 99213

== ENCOUNTER → 2023-10-25 12:49 | Outpatient (BNVA) | payer OTHER, SELFPAY | PROVIDERS: PCP Family Medicine; Visit Provider Nurse Practitioner | DX: K21.9 Gastro-esophageal reflux disease without esophagitis (principal); K59.04 Chronic idiopathic constipation; K30 Functional dyspepsia | CPT/HCPCS: 99212 ==

== ENCOUNTER 2023-12-20 09:50 | Outpatient (REF) | payer OTHER, SELFPAY ==
[2023-12-20 11:29] LABS: MANUAL DIFF FLAG NO
[2023-12-20 11:40] LABS: Basophils Percent Auto 0.7 % (0-2); Eosinophils Absolute Auto 0.1 X10*3/uL (0.0-0.4); Hemoglobin 16.1 g/dl (12.0-16.0); Imm Gran Abs Auto 0.01 X10*3/uL (0.00-0.03); Imm Gran Pct Auto 0.2 % (0.0-0.4); Lymphocytes Absolute Auto 1.9 X10*3/uL (1.2-4.9); Lymphocytes Percent Auto 31.2 % (20-40); Mean Corpuscular Hemoglobin 30.4 pg (27.0-33.0); Mean Corpuscular Volume 86.8 fL (80.0-98.0); Mean Platelet Volume 10.5 fL (9.4-12.3); Monocytes Absolute Auto 0.4 X10*3/uL (0.1-1.2); Neutrophils Absolute Auto 3.6 x10*3/uL (2.0-8.3); Neutrophils Percent Auto 58.9 % (45-73); Platelet Count 184 X10*3/uL (160-400); Red Cell Distribution Width 12.9 % (11.0-16.0); White Blood Count 6.1 X10*3/uL (4.8-10.8)
[2023-12-20 12:36] LABS: Vitamin D 25-OH Total 22.4 ng/mL (>30)
[2023-12-20 12:37] LABS: Erythrocyte Sedimentation Rate 7 MM/HR (0-20)
[2023-12-20 12:43] LABS: Alanine Aminotransferase 15 U/L (0-31); Albumin Level 4.3 g/dL (3.5-5.0); Alkaline Phosphatase 84 U/L (39-117); Anion Gap 13 (12-20); Aspartate Amino Transferase 26 U/L (5-31); Bilirubin Total 0.6 mg/dL (0.0-1.0); Blood Urea Nitrogen 11 mg/dL (9-16); C Reactive Protein 0.37 mg/dL (< or = 0.50); Calcium 9.7 mg/dL (8.4-10.2); Carbon Dioxide 27 mmol/L (22-29); Chloride 101 mmol/L (96-108); Estimated Glomerular Filt Rate > 60; Glucose Random 77 mg/dL (60-115); Magnesium 2.3 mg/dL (1.6-2.6); Potassium 2.8 mmol/L (3.3-5.1); Sodium 138 mmol/L (135-145); Total Protein 7.9 g/dL (6.5-8.0)
[2023-12-21 18:28] LABS: Immunoglobulin A 360 mg/dL (47-310); Transglutaminase IgA <1.0 U/mL
== END 2023-12-20 09:51 | disposition home or self-care (01) ==
LOC: HO.HHCL 09:50
PROVIDERS: Visit Provider Family Medicine
DX: R21 Rash and other nonspecific skin eruption (principal); R63.4 Abnormal weight loss
CPT/HCPCS: 36415; 80053; 82306; 82784; 83735; 84443; 85025; 85652; 86140; 86364

== ENCOUNTER 2023-12-20 15:46 | Emergency (ER) | payer OTHER, SELFPAY ==
--- NOTE | 2023-12-20 16:23 | ED_ITS ---
HPI - Recheck/Abnormal Lab/Rx General Chief Complaint: Recheck/Abnormal Lab/Rx Stated Complaint: abnormal labs sent from [facility] Time Seen by Provider: 12/20/23 17:14 Source: patient Mode of arrival: ambulatory Limitations: no limitations History of Present Illness HPI narrative: Patient has been feeling weak with muscle cramps for last 2 weeks seen her PCP who did the labs which showed potassium 2.8 patient denied using of any diuretics does not take any potassium medication no diarrhea no vomiting patient was taking prednisone and feel depressed not eating much for last 6 weeks no history of hypokalemia in the past Related Data Home Medications Medication Instructions Recorded Confirmed albuterol sulfate 90 mcg/actuation 2 puff inhalation Q6H PRN asthma 10/19/20 01/25/23 aerosol inhaler amitriptyline 50 mg tablet 50 mg PO BEDTIME 10/19/20 01/25/23 atorvastatin 40 mg tablet 40 mg PO DAILY 10/19/20 01/25/23 bupropion HCl 300 mg 24 hr tablet, 300 mg PO QAM 10/19/20 01/25/23 extended release fluticasone propionate 220 1 puff inhalation BID 10/19/20 01/25/23 mcg/actuation HFA aerosol inhaler (Flovent HFA) gabapentin 600 mg tablet 600 mg PO TID 10/19/20 01/25/23 montelukast 10 mg tablet 10 mg PO DAILY 10/19/20 01/25/23 (Singulair) propranolol 80 mg capsule,24 80 mg PO DAILY 10/19/20 01/25/23 hr,extended release sumatriptan succinate 100 mg tablet See Rx Instructions PO .COMPLEX 10/19/20 01/25/23 hydroxyzine HCl 50 mg tablet 50 mg PO BEDTIME 06/16/21 01/25/23 melatonin 3 mg tablet 3 mg PO BEDTIME PRN insomnia 06/16/21 01/25/23 prazosin 1 mg capsule 1 mg PO BID 06/16/21 01/25/23 loratadine 10 mg tablet 10 mg PO DAILY 05/08/22 01/25/23 pilocarpine HCl 1 % eye drops 1 drp ophthalmic (eye) Q12H 05/08/22 01/25/23 topiramate 100 mg tablet 100 mg PO BID 05/08/22 01/25/23 buspirone 15 mg tablet 15 mg PO .COMPLEX 05/30/22 01/25/23 fluticasone propionate 50 1 spray intranasal QAM 11/02/22 01/25/23 mcg/actuation nasal spray,suspension Previous Rx's Medication Instructions Recorded cock up splint #2 ea 05/30/22 arm brace (Wrist Support One Size) #2 ea 06/06/22 duloxetine 60 mg capsule,delayed 60 mg PO BID #180 caps 07/20/22 release lidocaine 5 % topical patch 1 patch topical DAILY #30 ea 07/20/22 diclofenac sodium 1 % topical gel 2 g topical BID PRN for pain #100 11/03/22 grams acetaminophen 500 mg tablet 1,000 mg (2 x 500 mg) PO QID PRN 01/23/23 (Tylenol Extra Strength) fever or pain #14 tabs ibuprofen 600 mg tablet 600 mg PO Q6-8H PRN pain #40 tabs 01/25/23 baclofen 10 mg tablet 10 mg PO BID PRN for muscle spasm 09/11/23 90 days #180 tabs bisacodyl 5 mg tablet,delayed 10 mg (2 x 5 mg) PO BEDTIME 30 10/25/23 release (Dulcolax (bisacodyl)) days #60 tabs dexlansoprazole 60 mg 60 mg PO BEDTIME #30 caps 10/25/23 capsule,biphase delayed release (Dexilant) docusate sodium 100 mg capsule 200 mg (2 x 100 mg) PO BEDTIME PRN 10/25/23 for constipation #60 caps linaclotide 290 mcg capsule 290 mcg PO QAM #30 caps 10/25/23 (Linzess) magnesium oxide 400 mg (241.3 mg 400 mg PO QAM #30 tabs 10/25/23 magnesium) tablet metoclopramide HCl 10 mg tablet 10 mg PO QID #120 tabs 10/25/23 simethicone 180 mg capsule 180 mg PO QID #120 caps 10/25/23 cholecalciferol (vitamin D3) 50 50 mcg PO QAM #30 tabs 11/22/23 mcg (2,000 unit) tablet potassium chloride 10 mEq 10 meq PO DAILY #7 caps 12/20/23 capsule,extended release Allergies Allergy/AdvReac Type Severity Reaction Status Date / Time No Known Allergies Allergy Verified 10/25/23 12:54 [No Known Allergies*] Review of Systems 2 Review of Systems: Yes all other systems are reviewed and are negative [facility] Past Medical History Medical History Asthma Hepatitis B Long-term use of Plaquenil Fibromyalgia Surgical History H/O breast surgery H/O reduction mammoplasty Hx of abdominoplasty (~2004) History of open reduction and internal fixation (ORIF) procedure (~02/2018) Hx of section (~1979) Hx of colonoscopy Family History Family History Father Lung cancer Diabetes Hepatitis Brother Diabetes Lung cancer Sister Gastritis Social History Social History Alcohol intake: never Patient Tobacco Use Status: Never used Tobacco e-Cigarette/Vaping Use: Never Used Advance Directives Date on File: 08/16/20 Physical Exam 2 Vital Signs: Vital Signs: Last Vital Signs Temp 97.2 F 12/20/23 22:32 Pulse 67 12/20/23 22:32 Resp 15 12/20/23 22:32 BP 98/54 L 12/20/23 22:32 Pulse Ox 97 12/20/23 22:32 O2 Del Method Room Air 12/20/23 22:32 BMI result Body Mass Index 22.0 Appearance: Alert. Oriented X3. No acute distress. Eyes: PERRLA, No Nystagmus ENT: Pharynx normal. Oral Mucosa moist Neck: Normal inspection. Neck supple. CVS: Normal heart rate and rhythm. Pulses normal. Respiratory: No respiratory distress. Equal air entry bilateral, Abdomen: Soft and nontender. Bowel sounds are present, no mass palpable, no CVA tenderness Skin: Skin warm and dry. Normal skin color. Normal skin turgor. Extremities: No lower extremity edema. No calf tenderness Neuro: Oriented X 3. No motor deficit. Course Course Course Narrative: INNA: Sent to ED for concerns for hypokalemia. Blood work completed earlier today with K 2.8. Feeling intermittently weak and tired and states she has had episodes or diarrhea. No CP Medications Administered Discontinued Medications Generic Name Dose Route Start Last Admin Trade Name Bridget PRN Reason Stop Dose Admin Potassium Chloride 10 meq in 100 mls @ 100 mls/hr 12/20/23 17:15 12/20/23 20:40 Potassium Chloride/H20 IV 12/20/23 19:14 Infused Q1H KIN Infusion Potassium Bicarbonate 50 meq 12/20/23 17:15 12/20/23 17:56 Potassium Bicarbonate/Cit Ac 25 Meq Tablet.Eff PO 12/20/23 17:16 50 meq ONCE ONE Administration Medical Decision Making Medical Decision Making [facility] Narrative: Patient has hypokalemia likely from poor oral intake for last few weeks also has depression takes medication patient has family support was given IV potassium and p.o. potassium repeat potassium was 3.4 patient feeling much better now discharge patient home advised to follow with PCP for a recheck of potassium in 1 week Differential Diagnosis Differential Diagnoses: The differential diagnosis associated with the presentation includes Failure to thrive/poor oral intake/gastritis/depart Lab Data [facility] Lab Attestation statement: I reviewed the patient's lab results. 12/20/23 16:46 12/20/23 22:40 Labs: Lab Results 12/20/23 12/20/23 12/20/23 Range/Units 16:46 22:40 22:49 WBC 6.9 (4.8-10.8) X10*3/uL RBC 4.79 (4.20-5.50) X10*6/uL Hgb 14.7 (12.0-16.0) g/dl Hct 41.3 (37.0-47.0) % MCV 86.2 (80.0-98.0) fL MCH 30.7 (27.0-33.0) pg MCHC 35.6 H (31.0-35.0) g/dl RDW 12.7 (11.0-16.0) % Plt Count 158 L (160-400) X10*3/uL MPV 9.4 (9.4-12.3) fL Immature Gran % (Auto) 0.1 (0.0-0.4) % Neut % (Auto) 57.1 (45-73) % Lymph % (Auto) 33.5 (20-40) % [place] % (Auto) 6.8 (2-11) % Eos % (Auto) 1.9 (0-4) % Baso % (Auto) 0.6 (0-2) % Lymph # (Auto) 2.3 (1.2-4.9) X10*3/uL [place] # (Auto) 0.5 (0.1-1.2) X10*3/uL Eos # (Auto) 0.1 (0.0-0.4) X10*3/uL Baso # (Auto) 0.0 (0.0-0.2) X10*3/uL Abs Immat Gran (auto) 0.01 (0.00-0.03) X10*3/uL Absolute Neuts (auto) 4.0 (2.0-8.3) x10*3/uL Absolute Nucleated RBC 0.000 (0.0-0.012) X10*3/uL Nucleated RBC % (auto) 0.0 (0.0-0.2) /100WBC Sodium 136 139 (135-145) mmol/L Potassium 2.6 L* 3.4 D (3.3-5.1) mmol/L Chloride 98 103 (96-108) mmol/L Carbon Dioxide 28 27 (22-29) mmol/L Anion Gap 13 12 (12-20) BUN 10 (9-16) mg/dL Creatinine 0.84 (0.5-1.4) mg/dL Estim Creat Clear Calc 49.1 Estimated GFR > 60 Random Glucose 155 H (60-115) mg/dL Calcium 9.2 (8.4-10.2) mg/dL Magnesium 2.1 (1.6-2.6) mg/dL Total Bilirubin 0.4 (0.0-1.0) mg/dL AST 24 (5-31) U/L ALT 14 (0-31) U/L Alkaline Phosphatase 72 (39-117) U/L Total Protein 7.3 (6.5-8.0) g/dL Albumin 4.1 (3.5-5.0) g/dL Urine Color Yellow Urine Appearance Clear Urine pH 8.0 (5.0-9.0) Ur Specific [place] 1.010 (1.005-1.025) Urine Protein Negative (Neg-Trace) mg/dL Urine Glucose (UA) Negative (Negative) mg/dL Urine Ketones Negative (Negative) mg/dL Urine Blood Negative (Negative) Urine Nitrite Negative (Negative) Ur Leukocyte Esterase Negative (Negative) Ur Random Sodium 44.0 mmol/L Ur Random Potassium 7.7 mmol/L Ur Random Chloride < 20.0 mmol/L Independent Interpretation I performed an independent interpretation of an: EKG Interpretation: Sinus bradycardia heart rate 59 beats per minute normal interval normal axis no acute ST T wave changes no acute ischemia Critical Care Time Critical Care Time Critical Care Time: Yes Total Critical Care Time: 35 Attestation: The patient was critically ill with a high probability of imminent or life threatening deterioration. I spent greater than ?40??minutes of discontinuous time evaluating the patient,delivering critical care at the bedside, discussing and evaluating pertinent data with consultants. Critical care time does not include time spent performing separately billable procedures or teaching. Total time spent performing critical care was 35???minutes. Discharge Plan Discharge Clinical Impression: Hypokalemia Patient Disposition: Home, Self-Care Instructions: Potassium Content of Foods List (ED), Hypokalemia (ED) Additional Instructions: Drink plenty of fluid Take potassium tablet daily for 1 week as prescribed Had coconut water/bananas/orange juice daily Recheck potassium level in 1 week Tess mucho l?quido [place] maik tableta de potasio diariamente david 1 semana seg?n lo recetado. Tomaba agua de arcenio/pl?tanos/jugo de naranja diariamente Vuelva a comprobar el nivel de potasio en 1 semana. Prescriptions: New potassium chloride 10 mEq capsule, extended release 10 meq PO DAILY Qty: 7 0RF No Action buspirone 15 mg tablet 15 mg PO .COMPLEX Rx Instructions: 15 mg orally; 1 tab in the morning and 2 tabs at night (DME) Wrist Support One Size Misc See Rx Instructions .Route Qty: 2 0RF Rx Instructions: As directed diclofenac sodium 1 % gel 2 g topical BID PRN (Reason: for pain) Qty: 100 3RF baclofen 10 mg tablet 10 mg PO BID PRN (Reason: for muscle spasm) 90 Days Qty: 180 1RF cholecalciferol (vitamin D3) 50 mcg (2,000 unit) tablet 50 mcg PO QAM Qty: 30 2RF ibuprofen 600 mg tablet 600 mg PO Q6-8H PRN (Reason: pain) Qty: 40 0RF acetaminophen [Tylenol Extra Strength] 500 mg tablet 1,000 mg PO QID PRN (Reason: fever or pain) Qty: 14 0RF Flovent HFA 220 mcg/actuation HFA aerosol inhaler 1 puff inhalation BID albuterol sulfate 90 mcg/actuation HFA aerosol inhaler 2 puff inhalation Q6H PRN (Reason: asthma) sumatriptan succinate 100 mg tablet See Rx Instructions PO .COMPLEX Rx Instructions: take 1 tab at onset of headache; if no relief, may repeat 1 tab after at least 2 hrs; max = 2 tabs/24 hrs PO propranolol 80 mg capsule,extended release 24 hr 80 mg PO DAILY montelukast [Singulair] 10 mg tablet 10 mg PO DAILY gabapentin 600 mg tablet 600 mg PO TID bupropion HCl 300 mg tablet extended release 24 hr 300 mg PO QAM atorvastatin 40 mg tablet 40 mg PO DAILY amitriptyline 50 mg tablet 50 mg PO BEDTIME prazosin 1 mg capsule 1 mg PO BID hydroxyzine HCl 50 mg tablet 50 mg PO BEDTIME melatonin 3 mg tablet 3 mg PO BEDTIME PRN (Reason: insomnia) (DME) cock up splint See Rx Instructions .Route .MEDSUPPLY Qty: 2 0RF Rx Instructions: wear on each wrist at night. pilocarpine HCl 1 % drops 1 drp ophthalmic (eye) Q12H topiramate 100 mg tablet 100 mg PO BID loratadine 10 mg tablet 10 mg PO DAILY duloxetine 60 mg capsule,delayed release(DR/EC) 60 mg PO BID Qty: 180 1RF lidocaine 5 % adhesive patch,medicated 1 patch topical DAILY Qty: 30 1RF Rx Instructions: apply to painful areas for 12 hours max per day. fluticasone propionate 50 mcg/actuation spray,suspension 1 spray intranasal QAM Linzess 290 mcg capsule 290 mcg PO QAM Qty: 30 6RF Dexilant 60 mg capsule,biphase delayed releas 60 mg PO BEDTIME Qty: 30 6RF bisacodyl [Dulcolax (bisacodyl)] 5 mg tablet,delayed release (DR/EC) 10 mg PO BEDTIME 30 Days Qty: 60 6RF docusate sodium 100 mg capsule 200 mg PO BEDTIME PRN (Reason: for constipation) Qty: 60 6RF magnesium oxide 400 mg (241.3 mg magnesium) tablet 400 mg PO QAM Qty: 30 6RF metoclopramide HCl 10 mg tablet 10 mg PO QID Qty: 120 6RF simethicone 180 mg capsule 180 mg PO QID Qty: 120 6RF Interventions: ED Discharge Assessment Last Done: 12/20/23 23:35 Discharge Date/Time: 12/20/23 23:36 Print Language: Tajik
[2023-12-20 16:24] VITALS: BP 139/57; PULSE 62; RESP 14; TEMP 36.4; O2SAT 98; BMI 22.0
--- NOTE | 2023-12-20 16:24 | ECG_ITS ---
Test Reason : HYPERKALEMIA Blood Pressure : / mmHG Vent. Rate : 059 BPM Atrial Rate : 059 BPM P-R Int : 156 ms QRS Dur : 080 ms QT Int : 438 ms P-R-T Axes : 044 029 028 degrees QTc Int : 433 ms Sinus bradycardia Otherwise normal ECG When compared with ECG of 08-MAR-2017 18:58, Vent. rate has decreased BY 29 BPM Referred By: Jenae Dupont Electronically Signed By:DEE ROBLEDO
[2023-12-20 16:50] LABS: MANUAL DIFF FLAG NO
[2023-12-20 16:52] LABS: Basophils Percent Auto 0.6 % (0-2); Eosinophils Absolute Auto 0.1 X10*3/uL (0.0-0.4); Eosinophils Percent Auto 1.9 % (0-4); Hematocrit 41.3 % (37.0-47.0); Hemoglobin 14.7 g/dl (12.0-16.0); Imm Gran Abs Auto 0.01 X10*3/uL (0.00-0.03); Imm Gran Pct Auto 0.1 % (0.0-0.4); Lymphocytes Absolute Auto 2.3 X10*3/uL (1.2-4.9); Lymphocytes Percent Auto 33.5 % (20-40); Mean Corpuscular HGB Conc 35.6 g/dl (31.0-35.0); Mean Corpuscular Hemoglobin 30.7 pg (27.0-33.0); Mean Corpuscular Volume 86.2 fL (80.0-98.0); Mean Platelet Volume 9.4 fL (9.4-12.3); Monocytes Absolute Auto 0.5 X10*3/uL (0.1-1.2); Monocytes Percent Auto 6.8 % (2-11); Neutrophils Percent Auto 57.1 % (45-73); Platelet Count 158 X10*3/uL (160-400); Red Blood Count 4.79 X10*6/uL (4.20-5.50); Red Cell Distribution Width 12.7 % (11.0-16.0); White Blood Count 6.9 X10*3/uL (4.8-10.8)
[2023-12-20 17:08] LABS: Alanine Aminotransferase 14 U/L (0-31); Albumin Level 4.1 g/dL (3.5-5.0); Alkaline Phosphatase 72 U/L (39-117); Anion Gap 13 (12-20); Aspartate Amino Transferase 24 U/L (5-31); Bilirubin Total 0.4 mg/dL (0.0-1.0); Blood Urea Nitrogen 10 mg/dL (9-16); Calcium 9.2 mg/dL (8.4-10.2); Carbon Dioxide 28 mmol/L (22-29); Chloride 98 mmol/L (96-108); Creatinine Clr Calc Pharmacy 49.1; Estimated Glomerular Filt Rate > 60; Glucose Random 155 mg/dL (60-115); Magnesium 2.1 mg/dL (1.6-2.6); Potassium 2.6 mmol/L (3.3-5.1); Sodium 136 mmol/L (135-145); Total Protein 7.3 g/dL (6.5-8.0)
[2023-12-20 17:33] VITALS: BP 101/54; PULSE 59; RESP 16; TEMP 36.6; O2SAT 99
[2023-12-20] MEDS: Potassium Chloride/H20 10 MEQ/100 ML PIGGYBACK 100 MEQ IV ×2 (17:56→19:32)
[2023-12-20] MEDS: Potassium Bicarbonate/Cit AC 25 MEQ TABLET.EFF 50 MEQ PO (17:56)
--- NOTE | 2023-12-20 19:40 | PC.NURSE ---
PT laying in bed, appears in no distress, offers no complaints. at bedside, 2nd bag of K hung and running (see MAR) plan of care ongoing.
[2023-12-20 22:32] VITALS: BP 98/54; PULSE 67; RESP 15; TEMP 36.2; O2SAT 97
[2023-12-20 22:54] LABS: Anion Gap 12 (12-20); Carbon Dioxide 27 mmol/L (22-29); Chloride 103 mmol/L (96-108); Potassium 3.4 mmol/L (3.3-5.1); Sodium 139 mmol/L (135-145)
[2023-12-20 22:56] LABS: Appearance Urine Clear; Color Urine Yellow; Glucose Urine UA Negative (Negative); Leukocyte Esterase Urine Negative (Negative); Nitrite Urine Negative (Negative); Urine Blood Negative (Negative); Urine Ketones Negative (Negative); Urine Protein Negative (Neg-Trace)
[2023-12-20 22:59] LABS: Potassium Urine Random 7.7 mmol/L
[2023-12-20 23:44] LABS: Chloride Urine Random < 20.0 mmol/L
== END 2023-12-20 23:36 | disposition home or self-care (01) ==
PROVIDERS: Nurse Practitioner Family; Emergency Provider Internal Medicine; PCP Family Medicine
DX: E87.6 Hypokalemia (principal); R00.1 Bradycardia, unspecified; Z79.899 Other long term (current) drug therapy
CPT/HCPCS: 36415; 80051; 80053; 81003; 82436; 83735; 84133; 84300; 85025; 93005; 96365; 96366; 99284; J3480

== ENCOUNTER → 2023-12-20 16:24 | Outpatient (BNV) | payer OTHER, SELFPAY | PROVIDERS: Emergency Provider Internal Medicine; PCP Family Medicine; Visit Provider Internal Medicine | DX: R00.1 Bradycardia, unspecified (principal) | CPT/HCPCS: 93010 ==

== ENCOUNTER 2024-01-08 08:57 | Outpatient (REF) | payer OTHER, SELFPAY ==
--- NOTE | ~2024-01-08 | MM_ITS ---
EXAMINATION: BONE DENSITOMETRY CLINICAL INDICATION: Postmenopausal, recent wrist fracture. COMPARISON: Baseline BD dated 07/09/2014. TECHNIQUE: Using a en[employer]reet DXA System (software version: 13.1) manufactured by [employer], dual-energy x-ray absorptiometry was performed of the lumbar spine and left hip. The images are of good technical quality. Summary results are attached. FINDINGS: LEFT FEMUR, NECK: Current: BMD 0.798 g/cm2, Z-score -0.2, T-score -1.7, osteopenia. Baseline: BMD 0.925 g/cm2. LEFT FEMUR, TOTAL: Current: BMD 0.916 g/cm2, Z-score 0.6, T-score -0.7, normal, 15.6% decrease from baseline (<5% change is not significant). Baseline: BMD 1.085 g/cm2. AP SPINE L1-L4: Current: BMD 1.024 g/cm2, Z-score 0.4, T-score -1.3, osteopenia, 16.1% decrease from baseline (<5% change is not significant). Baseline: BMD 1.220 g/cm2. IDENTIFIED RISK FACTORS: Menopause, rheumatoid arthritis, history of fracture (adult), intestinal or bowel disease/secondary osteoporosis. HISTORY OF FRACTURE: Wrist. MEDICATIONS: Vitamin D. MM/XR DEXA axial skeleton IMPRESSION: 1. DIAGNOSIS: Osteopenia based on the lowest T-score value of -1.7 in the femoral neck applying World Health Organization criteria. 2. 10-YEAR FRACTURE RISK PREDICTION, FRAX: Major osteoporotic fracture (clinical spine, forearm, hip or shoulder) 9.9%. Hip fracture 1.2%. 3. Treatment Recommendations: NOF guidelines recommend consideration for treatment in postmenopausal women and men age 50 and older presenting with the following: -A hip or vertebral (clinical or morphometric) fracture. -T-score less than or equal to -2.5 at the femoral neck or spine after appropriate evaluation to exclude secondary causes. -Low bone mass at the hip or spine and a 10-year fracture probability by FRAX of greater than or equal to 3% for hip fracture or greater than or equal to 20% for major osteoporotic fracture based on the [place] adapted WHO algorithm. 4. Other Recommendations: All treatment decisions require clinical judgment and consideration of individual patient factors, including patient preferences, comorbidities, previous drug use, risk factors not captured in the FRAX model (e.g. frailty, falls, vitamin D deficiency, increased bone turnover, interval significant decline in bone density) and possible under or overestimation of fracture risk by FRAX. Additional medical evaluation for secondary cause of low bone mineral density may be appropriate. FUTURE SCAN RECOMMENDATION: People with diagnosed cases of osteoporosis or at high risk for fracture should have regular bone mineral density tests. For patients eligible for Medicare, routine testing is allowed once every 2 years. The testing frequency can be increased to one year for patients who have rapidly progressing disease, those who are receiving or discontinuing medical therapy to restore bone mass, or have additional risk factors.
== END 2024-01-08 08:58 | disposition home or self-care (01) ==
LOC: HO.MAMMO 08:57
PROVIDERS: PCP Family Medicine; Visit Provider Family Medicine
DX: Z13.820 Encounter for screening for osteoporosis (principal); Z78.0 Asymptomatic menopausal state; Z87.81 Personal history of (healed) traumatic fracture
CPT/HCPCS: 77080

== ENCOUNTER 2024-01-16 08:42 | Outpatient (REF) | payer OTHER, SELFPAY ==
[2024-01-16 12:55] LABS: Anion Gap 12 (12-20)
[2024-01-16 13:06] LABS: Blood Urea Nitrogen 8 mg/dL (9-16); Calcium 9.8 mg/dL (8.4-10.2); Carbon Dioxide 27 mmol/L (22-29); Chloride 107 mmol/L (96-108); Estimated Glomerular Filt Rate > 60; Glucose Random 78 mg/dL (60-115); Magnesium 2.3 mg/dL (1.6-2.6); Potassium 3.6 mmol/L (3.3-5.1); Sodium 142 mmol/L (135-145)
[2024-01-21 15:13] LABS: Vitamin D 25-OH, D2 6 ng/mL; Vitamin D 25-OH, D3 20 ng/mL; Vitamin D 25-OH, Total 26 ng/mL (30-100)
== END 2024-01-16 08:43 | disposition home or self-care (01) ==
LOC: HO.HHCL 08:42
PROVIDERS: Student in an Organized Health Care Education/Training Program; Visit Provider Family Medicine
DX: Z13.21 Encounter for screening for nutritional disorder (principal); Z86.39 Personal history of other endocrine, nutritional and metabolic disease
CPT/HCPCS: 36415; 80048; 82306; 83735

== ENCOUNTER 2024-01-22 10:35 | Outpatient (AMB) | payer OTHER, SELFPAY ==
[2024-01-22 10:41] VITALS: BP 112/62; PULSE 64; BMI 21.0
--- NOTE | 2024-01-22 10:41 | MHC.OFFVIS ---
Intake Vital Signs 01/22/24 10:41 Height 4 ft 11 in Weight 104 lb 0.931 oz BMI 21.0 BP 112/62 Blood Pressure Location Rt brachial Position Sitting Pulse 64 Pulse Source Pulse Oximeter Intake Visit Reasons: FMS Intake Note: Patient last seen 01/18/23 presents today for follow up. C/o pain in everywhere. Especially in her low back and bl shoulder pain. Discussed PT in the past but patient declined. Customer Solutions Coordinator Required: Yes Customer Solutions Coordinator Language: Trench Pipe Layer Helper Name: Greyson [id number] Information Interpreted: clinical only Accompanied by: Self / Same As Patient Allergies No Known Allergies [No Known Allergies*] Allergy (Verified 01/22/24 10:51) Medication List - Last Reconciled 01/22/24 by Jorge Alberto Franco MD acetaminophen (Tylenol Extra Strength) 1,000 mg (2 x 500 mg) PO QID PRN albuterol sulfate 90 mcg/actuation 2 puffs inhalation Q6H PRN amitriptyline 50 mg PO BEDTIME arm brace (Wrist Support One Size) As directed atorvastatin 40 mg PO DAILY baclofen 10 mg PO BID PRN 90 days bisacodyl (Dulcolax (bisacodyl)) 10 mg (2 x 5 mg) PO BEDTIME 30 days bupropion HCl 300 mg PO QAM buspirone 15 mg orally; 1 tab in the morning and 2 tabs at night cholecalciferol (vitamin D3) (Vitamin D3) 50 mcg PO DAILY cholecalciferol (vitamin D3) 50 mcg PO QAM [cock up splint wear on each wrist at night.] dexlansoprazole (Dexilant) 60 mg PO BEDTIME diclofenac sodium 1% 2 grams topical BID PRN docusate sodium 200 mg (2 x 100 mg) PO BEDTIME PRN duloxetine 60 mg PO BID fluticasone propionate 220 mcg/actuation (Flovent HFA) 1 puff inhalation BID fluticasone propionate 50 mcg/actuation 1 spray intranasal QAM gabapentin 600 mg PO TID hydroxyzine HCl 50 mg PO BEDTIME ibuprofen 600 mg PO Q6-8H PRN lidocaine 5% 1 patch topical DAILY linaclotide (Linzess) 290 mcg PO QAM loratadine 10 mg PO DAILY magnesium oxide 400 mg PO QAM melatonin 3 mg PO BEDTIME PRN metoclopramide HCl 10 mg PO QID mometasone 200 mcg/actuation (Asmanex HFA) 2 puffs inhalation BID montelukast (Singulair) 10 mg PO DAILY pilocarpine HCl 1% 1 drp ophthalmic (eye) Q12H potassium chloride ER 10 mEq PO DAILY prazosin 1 mg PO BID propranolol ER 80 mg PO DAILY simethicone 180 mg PO QID sumatriptan succinate take 1 tab at onset of headache; if no relief, may repeat 1 tab after at least 2 hrs; max = 2 tabs/24 hrs PO topiramate 100 mg PO BID HPI HPI Comments History of Present Illness Details 58-year-old female with fibromyalgia returns for follow-up. She continues to have diffuse pain everywhere. She was recently evaluated by pain management and a procedure was planned, patient did not go through with it. She was afraid of needles. She states that her toenails have been receding. She was evaluated by her PCP and has been using nail [place]. She is requesting diclofenac refill. She applies it on her knees PFSH Medical History (Updated 01/22/24 @ 11:06 by Jorge Alberto Franco MD) Asthma Hepatitis B Fibromyalgia Surgical History H/O breast surgery H/O reduction mammoplasty Hx of abdominoplasty (~2004) History of open reduction and internal fixation (ORIF) procedure (~02/2018) Hx of section (~1979) Hx of colonoscopy Family History Father Lung cancer Diabetes Hepatitis Brother Diabetes Lung cancer Sister Gastritis Social History Alcohol intake: never Patient Tobacco Use Status: Never used Tobacco e-Cigarette/Vaping Use: Never Used Advance Directives Date on File: 08/16/20 Review of Systems Const Reports fatigue and Reports weakness Eyes Reports no additional complaints Resp Reports no additional complaints Musc Reports back pain and Reports arthralgias Skin/Breast Reports nail changes Neuro Reports weakness Endo Reports fatigue Physical Exam Vital Signs: BMI result Body Mass Index 21.0 Const General: cooperative, healthy appearing and comfortable Nutritional Appearance: obese Orientation/consciousness: patient oriented x3 Limitations: no limitations HEENT Head: Yes normocephalic and Yes atraumatic Mouth: Normal oral and palatal mucosa present and moist mucous membranes Resp Effort & Inspection: normal respiratory effort and able to speak in complete sentences Auscultation: clear to auscultation bilaterally Cardio Rate: regular rate Rhythm: regular rhythm Heart sounds: S1 normal heart sound present and S2 normal heart sound present Neuro General: patient oriented x3 Extrem Other: Osteoarthritic changes of both hands without synovitis. Deformity of left little finger related to an accident as a child. Normal nailfold capillaroscopy Multiple fibromyalgia tender points. She has normal range of motion of her shoulders Receiving toe nails bilaterally Assessment & Plan Assessment & Plan (1) Fibromyalgia: Code(s): M79.7 - Fibromyalgia Plan: 58 year old female with fibromyalgia returns for follow-up. Continues to feel about the same. She is on duloxetine, amitriptyline and gabapentin prescribed by other providers. A procedure was planned by Pain Management, patient did not go through with it as she was needle phobic. Advised patient to consider using Biotene supplements and folic acid supplements for her nails. Diclofenac gel prescribed once. Advised patient to get any refills from her PCP. Follow-up with PCP, neurologist and psychiatrist. Plan I spent 18 minutes reviewing patient's chart, evaluating patient,, counseling patient and documenting in the chart Medications: Refilled diclofenac sodium 1% 2 grams topical BID PRN 100 grams 0RF for pain M25.50 - Pain in unspecified joint Coding Level of Care Code Est Pt Level 3 (07634) Diagnoses Fibromyalgia M79.7
== END 2024-01-22 11:34 | disposition home or self-care (01) ==
PROVIDERS: PCP Family Medicine; Visit Provider Student in an Organized Health Care Education/Training Program
DX: M79.7 Fibromyalgia (principal)
CPT/HCPCS: 99213

== ENCOUNTER → 2024-01-22 10:35 | Outpatient (BNVA) | payer OTHER, SELFPAY | PROVIDERS: PCP Family Medicine; Visit Provider Student in an Organized Health Care Education/Training Program | DX: M79.7 Fibromyalgia (principal) | CPT/HCPCS: 99212 ==

== ENCOUNTER 2024-03-18 09:38 | Outpatient (REF) | payer OTHER, SELFPAY ==
[2024-03-18 12:07] LABS: Estimated Average Glucose 100 mg/dL; Hemoglobin A1c % 5.1 % (<6.0)
[2024-03-18 12:45] LABS: Alanine Aminotransferase 20 U/L (0-31); Albumin Level 4.1 g/dL (3.5-5.0); Alkaline Phosphatase 81 U/L (39-117); Anion Gap 14 (12-20); Aspartate Amino Transferase 33 U/L (5-31); Bilirubin Total 0.4 mg/dL (0.0-1.0); Blood Urea Nitrogen 18 mg/dL (9-16); Calcium 9.2 mg/dL (8.4-10.2); Carbon Dioxide 27 mmol/L (22-29); Chloride 104 mmol/L (96-108); Cholesterol 228 mg/dL (<200); Estimated Glomerular Filt Rate > 60; Glucose Random 69 mg/dL (60-115); HDL Cholesterol 99 mg/dL (>40); LDL Cholesterol Calculated 122 mg/dL (<100); Potassium 3.4 mmol/L (3.3-5.1); Sodium 142 mmol/L (135-145); Total Protein 7.5 g/dL (6.5-8.0); Triglycerides 38 mg/dL (<150)
[2024-03-18 12:49] LABS: TSH reflex Free T4 0.69 uIU/mL (0.32-4.0)
[2024-03-18 12:55] LABS: Reflex LDLD? No
[2024-03-19 21:39] LABS: Hepatitis B Viral DNA Qn - cp 1.68 Log IU/mL (NOT DETECTED); Hepatitis B Viral DNA Qn-IU/mL 48 IU/mL (NOT DETECTED)
== END 2024-03-18 09:39 | disposition home or self-care (01) ==
LOC: HO.HHCL 09:38
PROVIDERS: Visit Provider Family Medicine
DX: Z13.220 Encounter for screening for lipoid disorders (principal); Z13.1 Encounter for screening for diabetes mellitus; Z13.6 Encounter for screening for cardiovascular disorders; R63.4 Abnormal weight loss; E87.6 Hypokalemia; B18.1 Chronic viral hepatitis B without delta-agent
CPT/HCPCS: 36415; 80053; 80061; 83036; 84443; 87517

== ENCOUNTER 2024-05-01 11:37 | Outpatient (AMB) | payer OTHER, SELFPAY ==
--- NOTE | 2024-05-01 11:41 | A.OFFVIS_ITS ---
Vital Signs 05/01/24 11:47 Height 4 ft 11 in Weight 108 lb 0.424 oz BMI 21.8 BP 114/53 L Blood Pressure Location Lt brachial Position Sitting Pulse 64 Intake Visit Reasons: 6 month follow up Intake Note: Tiffany presents in the office as a 6 month follow up. CC: She states that she is not having any GI concerns today. Depalletizer Operator Required: No Allergies No Known Allergies [No Known Allergies*] Allergy (Verified 05/01/24 11:47) HPI HPI 6 month follow up: Details: Assessment & Plan (1) GERD (gastroesophageal reflux disease): Code(s): K21.9 - Gastro-esophageal reflux disease without esophagitis (2) Chronic idiopathic constipation: Code(s): K59.04 - Chronic idiopathic constipation (3) Delayed gastric emptying: Code(s): K30 - Functional dyspepsia Plan [place] #[id number] She continues on her Reglan 10 mg 4 times a day, Linzess 290 micro g, Dexilant, and bisacodyl for occasional breakthrough constipation. At this point she is quite satisfied with her GI regimen and her level of control. She has lost > 60lbs r/t intentional dieting! ROV 6 mos. Medications: Refilled dexlansoprazole (Dexilant) 60 mg PO BEDTIME 30 caps 6RF K21.9 - Gastro- esophageal reflux disease without esophagitis bisacodyl (Dulcolax (bisacodyl)) 10 mg (2 x 5 mg) PO BEDTIME 30 days 60 tabs 6RF K59.04 - Chronic idiopathic constipation docusate sodium 200 mg (2 x 100 mg) PO BEDTIME PRN 60 caps 6RF for constipation K59.04 - Chronic idiopathic constipation magnesium oxide 400 mg PO QAM 30 tabs 6RF K59.04 - Chronic idiopathic constipation metoclopramide HCl 10 mg PO QID 120 tabs 6RF linaclotide (Linzess) 290 mcg PO QAM 30 caps 6RF K59.04 - Chronic idiopathic constipation simethicone 180 mg PO QID 120 caps 6RF R14.0 - Abdominal distension (gaseous) TODAY'S VISIT [place] #[place] Live She continues on her Reglan 10 mg 4 times a day, Linzess 290 micro g, Dexilant, and bisacodyl for occasional breakthrough constipation. She has been having trouble with pain in the RLQ that radiates to her hip and down her leg. It is not every day, but when it happens it will bend her forward and will go away after about an hour. It sounds like bowel cramping, will give a trial of bentyl. Her PCP ordered a CT of the abd. This is 05/26. I will see her back after the CT. [facility] Medical History Asthma Hepatitis B Fibromyalgia Surgical History H/O breast surgery H/O reduction mammoplasty Hx of abdominoplasty (~2004) History of open reduction and internal fixation (ORIF) procedure (~02/2018) Hx of section (~1979) Hx of colonoscopy Family History Father Lung cancer Diabetes Hepatitis Brother Diabetes Lung cancer Sister Gastritis Social History Alcohol intake: never Patient Tobacco Use Status: Never used Tobacco e-Cigarette/Vaping Use: Never Used Advance Directives Date on File: 08/16/20 Review of Systems Const Denies fatigue, Denies fever(s), Denies night sweats, Denies poor appetite and Denies weight loss ENT Reports Normal hearing present, Denies dental pain, Denies dysphagia, Denies hearing loss, Denies mouth pain, Denies odynophagia, Denies throat swelling, Denies tongue swelling and Reports other (Dentition adequate) Card Reports no additional complaints Resp Reports no additional complaints GI Details: Reports abdominal pain, Denies melena, Reports bloating, Denies hematochezia, Reports constipation, Denies GI cramping, Denies dysphagia, Denies excessive flatus, Denies early satiety, Reports heartburn, Denies diarrhea, Denies nausea, Denies odynophagia, Denies vomiting and Denies hematemesis Skin/Breast Denies pruritus, Denies lesions, Denies rash and Denies jaundice Neuro Reports Normal hearing present and Denies Abnormal speech present Endo Denies fatigue Aller/Immun Denies throat swelling and Denies tongue swelling Physical Exam Vital Signs: Last Vital Signs Pulse 64 05/01/24 11:47 BP 114/53 L 05/01/24 11:47 BMI result Body Mass Index 21.8 Const General: cooperative, no acute distress, well developed and well groomed Nutritional Appearance: average body habitus and well nourished Orientation/consciousness: oriented to person, oriented to place and oriented to time Limitations: language barrier HEENT Head: Yes normocephalic and Yes atraumatic Eyes General: appearance normal, both eyes and all related structures Pupils: Equal, round and reactive pupils present Neck Neck: Yes normal visual inspection and Yes no lymphadenopathy Thyroid: Thyroid normal Resp Effort & Inspection: normal respiratory effort and able to speak in complete sentences Auscultation: clear to auscultation bilaterally Cardio Rate: regular rate Rhythm: regular rhythm Heart sounds: Normal, physiologic split S2 sound present Peripheral pulses: radial pulses present and posterior tibial pulses present GI Inspection: No distended and No Abdominal panniculus present Palpation (GI): Soft to palpation, nontender, no guarding, not rigid and No hepatosplenomegaly present Percussion: Yes normal to percussion Auscultation: normal bowel sounds Rectal Exam - Female: deferred Skin General skin exam: no rashes or lesions noted, turgor normal, skin not dry, no jaundice, No spider nevi and no striae Rashes: no rashes Nails: normal Neuro General: oriented to person, oriented to place and oriented to time Cranial nerves: Yes Equal, round and reactive pupils present and Yes Normal hearing present Speech: No Abnormal speech present Extrem General: Yes normal to inspection, No clubbing, No cyanosis and No edema Psych Appearance: grossly normal and well kempt Mental Status: mental status grossly normal Speech and movement: Normal speech and movement present Affect: normal affect Attitude: cooperative Thought process: Normal thought process present and not confabulating Thought content: Normal thought content present Insight: Fair insight present (Psych) Judgement: Fair judgement present (Psych) Assessment & Plan Assessment & Plan (1) GERD (gastroesophageal reflux disease): Code(s): K21.9 - Gastro-esophageal reflux disease without esophagitis Category: Medical (2) Chronic idiopathic constipation: Code(s): K59.04 - Chronic idiopathic constipation Category: Medical Plan [place] #[place] Live She continues on her Reglan 10 mg 4 times a day, Linzess 290 micro g, Dexilant, and bisacodyl for occasional breakthrough constipation. She has been having trouble with pain in the RLQ that radiates to her hip and down her leg. It is not every day, but when it happens it will bend her forward and will go away af ter about an hour. It sounds like bowel cramping, will give a trial of bentyl. Her PCP ordered a CT of the abd. This is 05/26. I will see her back after the CT. CT abdomen and pelvis Medications: New dicyclomine 10 mg PO TID PRN 90 caps 3RF abdominal pain Refilled dexlansoprazole (Dexilant) 60 mg PO BEDTIME 30 caps 6RF K21.9 - Gastro- esophageal reflux disease without esophagitis linaclotide (Linzess) 290 mcg PO QAM 30 caps 6RF K59.04 - Chronic idiopathic constipation simethicone 180 mg PO QID 120 caps 6RF R14.0 - Abdominal distension (gaseous) bisacodyl (Dulcolax (bisacodyl)) 10 mg (2 x 5 mg) PO BEDTIME 30 days 60 tabs 6RF K59.04 - Chronic idiopathic constipation docusate sodium 200 mg (2 x 100 mg) PO BEDTIME PRN 60 caps 6RF for constipation K59.04 - Chronic idiopathic constipation metoclopramide HCl 10 mg PO QID 120 tabs 6RF Coding Level of Care Code Est Pt Level 3 (64232) Diagnoses GERD (gastroesophageal reflux disease) K21.9 Chronic idiopathic constipation K59.04
[2024-05-01 11:47] VITALS: BP 114/53; PULSE 64; BMI 21.8
== END 2024-05-01 12:10 | disposition home or self-care (01) ==
PROVIDERS: PCP Family Medicine; Visit Provider Nurse Practitioner
DX: K21.9 Gastro-esophageal reflux disease without esophagitis (principal); K59.04 Chronic idiopathic constipation
CPT/HCPCS: 99213

== ENCOUNTER → 2024-05-01 11:37 | Outpatient (BNVA) | payer OTHER, SELFPAY | PROVIDERS: PCP Family Medicine; Visit Provider Nurse Practitioner | DX: K21.9 Gastro-esophageal reflux disease without esophagitis (principal); K59.04 Chronic idiopathic constipation | CPT/HCPCS: 99212 ==

== ENCOUNTER 2024-05-26 08:29 | Outpatient (REF) | payer OTHER, SELFPAY ==
--- NOTE | ~2024-05-26 | CT_ITS ---
EXAMINATION: CT ABDOMEN AND PELVIS WITH CONTRAST CLINICAL INFORMATION: Right lower quadrant pain. Positive peritoneal signs. COMPARISON: Abdominal ultrasound 05/23/2023. CT abdomen and pelvis 12/19/2011. TECHNIQUE: Multidetector volumetric images were obtained from the superior aspect of the liver through the pubic symphysis following administration 85 mL of Omnipaque 350 intravenous contrast. Sagittal and coronal reformatted images were obtained on the technologist's workstation. Oral contrast: Yes This CT examination was performed using dose optimization techniques as appropriate, variously including the following: *Automated exposure control *Adjustment of mA and/or kV according to patient size (this includes techniques or standardized protocols for targeted exams where dose is matched to indication/reason for exam; i.e. extremities or head) *Use of iterative reconstruction technique DLP: 218 mGy-cm FINDINGS: LUNG BASES: Calcified granuloma in the middle lobe. No imaging follow-up is recommended. LIVER, GALLBLADDER, AND BILIARY TREE: The liver is normal in size, shape, and attenuation. No focal hepatic lesion or biliary ductal dilatation is present. The gallbladder is unremarkable with no evidence of radiopaque gallstones, gallbladder wall thickening, or obvious pericholecystic inflammatory changes. PANCREAS: No discrete pancreatic mass. No pancreatic ductal dilatation. SPLEEN: The spleen appears normal. ADRENAL GLANDS: No adrenal mass. KIDNEYS AND URETERS: The kidneys are normal in size, shape, and attenuation. No hydronephrosis, hydroureter, or calculi seen. No perinephric stranding. BLADDER: Unremarkable. GASTROINTESTINAL TRACT: The small bowel is normal in caliber. Oral contrast is seen throughout the small bowel and most of the large bowel down to the level of the sigmoid colon. There is relative collapse of the sigmoid colon which appears mildly inflamed series 3 image 55. There is trace free fluid in the pelvis. This does not appear to be related to diverticular disease and may represent an infectious or inflammatory colitis. No definite diverticuli are seen. ABDOMINAL WALL: No significant hernia is appreciated. LYMPH NODES: No pathologically enlarged lymph nodes. VASCULAR: No aortic aneurysm. PELVIC VISCERA: Unremarkable. OSSEOUS STRUCTURES: Degenerative changes in the spine. CT/CT abdomen pelvis w IV con IMPRESSION: The sigmoid colon and appears mildly inflamed. There is trace simple free fluid in the pelvis. Findings are compatible with colitis. Recommend clinical correlation. No evidence of obstruction.
[2024-05-26] MEDS: iohexoL 350 MG/ML 100 ML INFUS..BTL IV (11:07)
[2024-05-26] MEDS: Barium Sulfate Oral (Vanilla) 450 ML ORAL.SUSP 900 ML PO (11:07)
[2024-05-26 13:35] LABS: Creatinine POC 0.6 mg/dL (0.5-1.4); GFR POC > 60
== END 2024-05-26 08:30 | disposition home or self-care (01) ==
LOC: HO.CT 08:29
PROVIDERS: PCP Family Medicine; Visit Provider Family Medicine
DX: R10.31 Right lower quadrant pain (principal)
CPT/HCPCS: 74177; 82565; Q9967

== ENCOUNTER 2024-06-18 11:39 | Outpatient (AMB) | payer OTHER, SELFPAY ==
--- NOTE | 2024-06-18 11:41 | MHC.OFFVIS ---
Vital Signs 06/18/24 11:54 Height 4 ft 11 in Weight 111 lb 1.808 oz BMI 22.4 BP 112/53 L Blood Pressure Location Lt brachial Position Sitting Pulse 48 L Intake Visit Reasons: follow up CT results Intake Note: Patient in office today in follow up of CT scan. CC: Patient c/o RLQ abdominal pain, and states that she hasn't noticed any improvement with metoclopramide. Patient states that her PCP prescribed her some abx after seeing her CT scan results but she has not started her. Allergies No Known Allergies [No Known Allergies*] Allergy (Verified 06/18/24 12:14) HPI HPI follow up CT results: Details: Assessment & Plan (1) GERD (gastroesophageal reflux disease): Code(s): K21.9 - Gastro-esophageal reflux disease without esophagitis Category: Medical (2) Chronic idiopathic constipation: Code(s): K59.04 - Chronic idiopathic constipation Category: Medical Plan [place] #[place] Live She continues on her Reglan 10 mg 4 times a day, Linzess 290 micro g, Dexilant, and bisacodyl for occasional breakthrough constipation. She has been having trouble with pain in the RLQ that radiates to her hip and down her leg. It is not every day, but when it happens it will bend her forward and will go away after about an hour. It sounds like bowel cramping, will give a trial of bentyl. Her PCP ordered a CT of the abd. This is 05/26. I will see her back after the CT. Medications: New dicyclomine 10 mg PO TID PRN 90 caps 3RF abdominal pain Refilled dexlansoprazole (Dexilant) 60 mg PO BEDTIME 30 caps 6RF K21.9 - Gastro-esophageal reflux disease without esophagitis linaclotide (Linzess) 290 mcg PO QAM 30 caps 6RF K59.04 - Chronic idiopathic constipation simethicone 180 mg PO QID 120 caps 6RF R14.0 - Abdominal distension (gaseous) bisacodyl (Dulcolax (bisacodyl)) 10 mg (2 x 5 mg) PO BEDTIME 30 days 60 tabs 6RF K59.04 - Chronic idiopathic constipation docusate sodium 200 mg (2 x 100 mg) PO BEDTIME PRN 60 caps 6RF for constipation K59.04 - Chronic idiopathic constipation metoclopramide HCl 10 mg PO QID [address] abdomen and pelvis 06/12/24 FINDINGS: LUNG BASES: Calcified granuloma in the middle lobe. No imaging follow-up is recommended. LIVER, GALLBLADDER, AND BILIARY TREE: The liver is normal in size, shape, and attenuation. No focal hepatic lesion or biliary ductal dilatation is present. The gallbladder is unremarkable with no evidence of radiopaque gallstones, gallbladder wall thickening, or obvious pericholecystic inflammatory changes. PANCREAS: No discrete pancreatic mass. No pancreatic ductal dilatation. SPLEEN: The spleen appears normal. ADRENAL GLANDS: No adrenal mass. KIDNEYS AND URETERS: The kidneys are normal in size, shape, and attenuation. No hydronephrosis, hydroureter, or calculi seen. No perinephric stranding. BLADDER: Unremarkable. GASTROINTESTINAL TRACT: The small bowel is normal in caliber. Oral contrast is seen throughout the small bowel and most of the large bowel down to the level of the sigmoid colon. There is relative collapse of the sigmoid colon which appears mildly inflamed series 3 image 55. There is trace free fluid in the pelvis. This does not appear to be related to diverticular disease and may represent an infectious or inflammatory colitis. No definite diverticuli are seen. ABDOMINAL WALL: No significant hernia is appreciated. LYMPH NODES: No pathologically enlarged lymph nodes. VASCULAR: No aortic aneurysm. PELVIC VISCERA: Unremarkable. OSSEOUS STRUCTURES: Degenerative changes in the spine. CT/CT abdomen pelvis w IV con IMPRESSION: The sigmoid colon and appears mildly inflamed. There is trace simple free fluid in the pelvis. Findings are compatible with colitis. Recommend clinical correlation. No evidence of obstruction. TODAY'S VISIT [place] #[place] Her pain comes and goes, the CT ? some inflammation, but not entirely conclusive. Her PCP gave her cipro and flagyl, seems to be assuming diverticulitis, and there is no harm in trying this. She has not started this yet. (She has been having trouble with pain in the RLQ that radiates to her hip and down her leg. It is not every day, but when it happens it will bend her forward and will go away after about an hour. ) IF this does not help I will get CRP and fecal reji and possible prometheus to assess for IBD. However, her reported pain on the right side does not correlate well with the report and the fact that it was not helped by the dicyclomine points more toward a musculoskeletal etiology. She continues on her Reglan 10 mg 4 times a day, Linzess 290 micro g, Dexilant, and bisacodyl ROV 4 weeks after abx tx. Infor printed on TICS per pt request in qatari from [facility] Medical History Asthma Hepatitis B Fibromyalgia Surgical History H/O breast surgery H/O reduction mammoplasty Hx of abdominoplasty (~2004) History of open reduction and internal fixation (ORIF) procedure (~02/2018) Hx of section (~1979) Hx of colonoscopy Family History Father Lung cancer Diabetes Hepatitis Brother Diabetes Lung cancer Sister Gastritis Social History Alcohol intake: never Patient Tobacco Use Status: Never used Tobacco e-Cigarette/Vaping Use: Never Used Advance Directives Date on File: 08/16/20 Review of Systems Const Denies fatigue, Denies fever(s), Denies night sweats, Denies poor appetite and Denies weight loss ENT Reports Normal hearing present, Denies dental pain, Denies dysphagia, Denies hearing loss, Denies mouth pain, Denies odynophagia, Denies throat swelling, Denies tongue swelling and Reports other (Dentition adequate) Card Reports no additional complaints Resp Reports no additional complaints GI Details: Reports abdominal pain, Denies melena, Denies bloating, Denies hematochezia, Reports constipation, Denies GI cramping, Denies dysphagia, Denies excessive flatus, Denies early satiety, Reports heartburn, Denies diarrhea, Denies nausea, Denies odynophagia, Denies vomiting and Denies hematemesis Musc Reports back pain and Reports radiating pain into limb Skin/Breast Denies pruritus, Denies lesions, Denies rash and Denies jaundice Neuro Reports Normal hearing present and Denies Abnormal speech present Endo Denies fatigue Aller/Immun Denies throat swelling and Denies tongue swelling Physical Exam Vital Signs: BMI result Body Mass Index 22.4 Const General: cooperative, no acute distress, well developed and well groomed Nutritional Appearance: average body habitus and well nourished Orientation/consciousness: oriented to person, oriented to place and oriented to time Limitations: language barrier HEENT Head: Yes normocephalic and Yes atraumatic Eyes General: appearance normal, both eyes and all related structures Pupils: Equal, round and reactive pupils present Neck Neck: Yes normal visual inspection and Yes no lymphadenopathy Thyroid: Thyroid normal Resp Effort & Inspection: normal respiratory effort and able to speak in complete sentences Auscultation: clear to auscultation bilaterally Cardio Rate: regular rate Rhythm: regular rhythm Heart sounds: Normal, physiologic split S2 sound present Peripheral pulses: radial pulses present and posterior tibial pulses present GI Inspection: No distended and No Abdominal panniculus present Palpation (GI): Soft to palpation, nontender, no guarding, not rigid and No hepatosplenomegaly present Percussion: Yes normal to percussion Auscultation: normal bowel sounds Rectal Exam - Female: deferred Skin General skin exam: no rashes or lesions noted, turgor normal, skin not dry, no jaundice, No spider nevi and no striae Rashes: no rashes Nails: normal Neuro General: oriented to person, oriented to place and oriented to time Cranial nerves: Yes Equal, round and reactive pupils present and Yes Normal hearing present Speech: No Abnormal speech present Extrem General: Yes normal to inspection, No clubbing, No cyanosis and No edema Psych Appearance: grossly normal and well kempt Mental Status: mental status grossly normal Speech and movement: Normal speech and movement present Affect: normal affect Attitude: cooperative Thought process: Normal thought process present and not confabulating Thought content: Normal thought content present Insight: Limited insight present (Psych) Judgement: Limited judgement present (Psych) Results Reviewed Results Reviewed: CT abdomen and pelvis 06/12/24 FINDINGS: LUNG BASES: Calcified granuloma in the middle lobe. No imaging follow-up is recommended. LIVER, GALLBLADDER, AND BILIARY TREE: The liver is normal in size, shape, and attenuation. No focal hepatic lesion or biliary ductal dilatation is present. The gallbladder is unremarkable with no evidence of radiopaque gallstones, gallbladder wall thickening, or obvious pericholecystic inflammatory changes. PANCREAS: No discrete pancreatic mass. No pancreatic ductal dilatation. SPLEEN: The spleen appears normal. ADRENAL GLANDS: No adrenal mass. KIDNEYS AND URETERS: The kidneys are normal in size, shape, and attenuation. No hydronephrosis, hydroureter, or calculi seen. No perinephric stranding. BLADDER: Unremarkable. GASTROINTESTINAL TRACT: The small bowel is normal in caliber. Oral contrast is seen throughout the small bowel and most of the large bowel down to the level of the sigmoid colon. There is relative collapse of the sigmoid colon which appears mildly inflamed series 3 image 55. There is trace free fluid in the pelvis. This does not appear to be related to diverticular disease and may represent an infectious or inflammatory colitis. No definite diverticuli are seen. ABDOMINAL WALL: No significant hernia is appreciated. LYMPH NODES: No pathologically enlarged lymph nodes. VASCULAR: No aortic aneurysm. PELVIC VISCERA: Unremarkable. OSSEOUS STRUCTURES: Degenerative changes in the spine. CT/CT abdomen pelvis w IV con IMPRESSION: The sigmoid colon and appears mildly inflamed. There is trace simple free fluid in the pelvis. Findings are compatible with colitis. Recommend clinical correlation. No evidence of obstruction Assessment & Plan Assessment & Plan (1) GERD (gastroesophageal reflux disease): Code(s): K21.9 - Gastro-esophageal reflux disease without esophagitis Category: Medical (2) Chronic idiopathic constipation: Code(s): K59.04 - Chronic idiopathic constipation Category: Medical (3) Delayed gastric emptying: Code(s): K30 - Functional dyspepsia Category: Medical Plan [place] #[place] Live Her pain comes and goes, the CT ? some inflammation, but not entirely conclusive. Her PCP gave her cipro and flagyl, seems to be assuming diverticulitis, and there is no harm in trying this. She has not started this yet. (She has been having trouble with pain in the RLQ that radiates to her hip and down her leg. It is not every day, but when it happens it will bend her forward and will go away after about an hour. ) IF this does not help I will get CRP and fecal reji and possible prometheus to assess for IBD. However, her reported pain on the right side does not correlate well with the report and the fact that it was not helped by the dicyclomine points more toward a musculoskeletal etiology. She continues on her Reglan 10 mg 4 times a day, Linzess 290 micro g, Dexilant, and bisacodyl ROV 4 weeks after abx tx. Infor printed on TICS per pt request in qatari from [facility] Coding Level of Care Code Est Pt Level 3 (44499) Diagnoses GERD (gastroesophageal reflux disease) K21.9 Chronic idiopathic constipation K59.04 Delayed gastric emptying K30
[2024-06-18 11:54] VITALS: BP 112/53; PULSE 48; BMI 22.4
== END 2024-06-18 12:38 | disposition home or self-care (01) ==
PROVIDERS: PCP Family Medicine; Visit Provider Nurse Practitioner
DX: K21.9 Gastro-esophageal reflux disease without esophagitis (principal); K59.04 Chronic idiopathic constipation; K30 Functional dyspepsia
CPT/HCPCS: 99213

== ENCOUNTER → 2024-06-18 11:39 | Outpatient (BNVA) | payer OTHER, SELFPAY | PROVIDERS: PCP Family Medicine; Visit Provider Nurse Practitioner | DX: K21.9 Gastro-esophageal reflux disease without esophagitis (principal); K59.04 Chronic idiopathic constipation; K30 Functional dyspepsia | CPT/HCPCS: 99212 ==

== ENCOUNTER 2024-07-22 10:16 | Outpatient (REF) | payer OTHER, SELFPAY ==
[2024-07-22 11:13] LABS: MANUAL DIFF FLAG NO
[2024-07-22 11:18] LABS: Basophils Percent Auto 0.8 % (0-2); Eosinophils Absolute Auto 0.2 X10*3/uL (0.0-0.4); Eosinophils Percent Auto 4.9 % (0-4); Hematocrit 40.6 % (37.0-47.0); Hemoglobin 13.5 g/dl (12.0-16.0); Imm Gran Abs Auto 0.01 X10*3/uL (0.00-0.03); Imm Gran Pct Auto 0.2 % (0.0-0.4); Lymphocytes Absolute Auto 1.9 X10*3/uL (1.2-4.9); Lymphocytes Percent Auto 38.1 % (20-40); Mean Corpuscular HGB Conc 33.3 g/dl (31.0-35.0); Mean Corpuscular Hemoglobin 30.2 pg (27.0-33.0); Mean Corpuscular Volume 90.8 fL (80.0-98.0); Monocytes Absolute Auto 0.4 X10*3/uL (0.1-1.2); Monocytes Percent Auto 7.1 % (2-11); Neutrophils Absolute Auto 2.4 x10*3/uL (2.0-8.3); Neutrophils Percent Auto 48.9 % (45-73); Platelet Count 190 X10*3/uL (160-400); Red Blood Count 4.47 X10*6/uL (4.20-5.50); Red Cell Distribution Width 13.2 % (11.0-16.0); White Blood Count 4.9 X10*3/uL (4.8-10.8)
[2024-07-22 12:21] LABS: Alanine Aminotransferase 25 U/L (0-31); Albumin Level 4.2 g/dL (3.5-5.0); Alkaline Phosphatase 82 U/L (39-117); Anion Gap 11 (12-20); Aspartate Amino Transferase 38 U/L (5-31); Bilirubin Total 0.5 mg/dL (0.0-1.0); Blood Urea Nitrogen 18 mg/dL (9-16); Calcium 9.5 mg/dL (8.4-10.2); Carbon Dioxide 28 mmol/L (22-29); Chloride 104 mmol/L (96-108); Cholesterol 248 mg/dL (<200); Estimated Glomerular Filt Rate > 60; Glucose Random 72 mg/dL (60-115); HDL Cholesterol 94 mg/dL (>40); LDL Cholesterol Calculated 140 mg/dL (<100); Potassium 3.9 mmol/L (3.3-5.1); Sodium 139 mmol/L (135-145); TSH reflex Free T4 1.23 uIU/mL (0.32-4.0); Total Protein 7.7 g/dL (6.5-8.0); Triglycerides 70 mg/dL (<150)
[2024-07-22 13:00] LABS: Reflex LDLD? No
== END 2024-07-22 10:17 | disposition home or self-care (01) ==
LOC: HO.HHCL 10:16
PROVIDERS: Visit Provider Family Medicine
DX: Z13.89 Encounter for screening for other disorder (principal)
CPT/HCPCS: 36415; 80053; 80061; 84443; 85025

== ENCOUNTER 2024-07-22 11:16 | Outpatient (REF) | payer OTHER, SELFPAY ==
--- NOTE | ~2024-07-22 | XR_ITS ---
EXAMINATION: XR SHOULDER, RIGHT CLINICAL INFORMATION: Right shoulder pain COMPARISON: None available. TECHNIQUE: AP external rotation, Grashey, scapular Y, and axillary views of the right shoulder. FINDINGS: Mild osteoarthritis of the acromioclavicular joint. Subacromial spur noted. Glenohumeral joint normal. Surrounding bones soft tissues unremarkable. XR/XR shoulder RT min 2V IMPRESSION: Degenerative changes of the right shoulder. Electronically signed by: Fabricio Daniel MD 08/06/2024 07:14 AM EDT
== END 2024-07-22 11:17 | disposition home or self-care (01) ==
LOC: HO.XRAY 11:16
PROVIDERS: PCP Family Medicine; Visit Provider Family Medicine
DX: M25.511 Pain in right shoulder (principal)
CPT/HCPCS: 36415; 73030; 80053; 80061; 84443; 85025

== ENCOUNTER 2024-08-04 14:06 | Outpatient (REF) | payer OTHER, SELFPAY ==
--- NOTE | ~2024-08-04 | US_ITS ---
EXAMINATION: US CHEST CLINICAL INFORMATION: Mass on back. COMPARISON: None available. TECHNIQUE: There is clinical concern was scanned using a high frequency linear ultrasound transducer. FINDINGS: There is a small ovoid, hypoechoic mass seen measuring 1.7 x 0.3 x 1.1 cm. This is about 5 mm below the skin surface. No other masses or fluid collections are seen. US/US chest IMPRESSION: Small ovoid hypoechoic mass in the area of clinical concern. This is nonspecific but could represent a small lipoma. This could even represent a collapsed sebaceous cyst. If this is felt to be suspicious on physical exam or is increased in size, this could always be biopsied under ultrasound guidance. Electronically signed by: Marcus Valente MD 08/17/2024 09:28 AM EDT
== END 2024-08-04 14:07 | disposition home or self-care (01) ==
LOC: HO.US 14:06
PROVIDERS: Visit Provider Family Medicine
DX: R22.2 Localized swelling, mass and lump, trunk (principal)
CPT/HCPCS: 76604

== ENCOUNTER 2024-08-20 14:02 | Outpatient (AMB) | payer OTHER, SELFPAY ==
--- NOTE | 2024-08-20 14:10 | A.OFFVIS_ITS ---
Vital Signs 08/20/24 14:11 Height 4 ft 11 in Weight 110 lb 3.698 oz BMI 22.3 BP 98/60 Blood Pressure Location Lt brachial Position Sitting Pulse 57 Intake Visit Reasons: 4 week follow up Intake Note: Patient in office today in follow up of abdominal pain. CC: Patient reports that she completed the abx course. Employment Representative Required: Yes Accompanied by: Self / Same As Patient Allergies No Known Allergies [No Known Allergies*] Allergy (Verified 08/20/24 14:16) HPI HPI 4 week follow up: Details: Assessment & Plan (1) GERD (gastroesophageal reflux disease): Code(s): K21.9 - Gastro-esophageal reflux disease without esophagitis Category: Medical (2) Chronic idiopathic constipation: Code(s): K59.04 - Chronic idiopathic constipation Category: Medical (3) Delayed gastric emptying: Code(s): K30 - Functional dyspepsia Category: Medical Plan Serbian #Ilya Nael Her pain comes and goes, the CT ? some inflammation, (in the sigmoid colon) but not entirely conclusive. Her PCP gave her cipro and flagyl, seems to be assuming diverticulitis, and there is no harm in trying this. She has not started this yet. (She has been having trouble with pain in the RLQ that radiates to her hip and down her leg. It is not every day, but when it happens it will bend her forward and will go away after about an hour. ) IF this does not help I will get CRP and fecal reji and possible prometheus to assess for IBD. However, her reported pain on the right side does not correlate well with the report and the fact that it was not helped by the dicyclomine points more toward a musculoskeletal etiology. She continues on her Reglan 10 mg 4 times a day, Linzess 290 micro g, Dexilant, and bisacodyl ROV 4 weeks after abx tx. Infor printed on TICS per pt request in [place] from [facility] TODAY'S VISIT Serbian #Ilya Live She is feeling much better after the abx tx - so it appears that she had an atypical presentation of diverticulitis - feeling it on the right instead of the right side. She continues on her Reglan 10 mg 4 times a day, Linzess 290 micro g, Dexilant, and bisacodyl. The only problem she is having is that the pharmacy is not supplying her the correct amt of pills. I'm unsure if this is a miscount, or qty limit via insurance. I advise her that she can also buy the bisacodyl OTC and it is fairly inexpensive. She admits she has already purchased it. I will send an rx for augmentin in case her sx return. She is educated that if she has to take it she should call me and be sure to complete the dose. ROV 6 mos. PFSH Medical History Fracture of proximal phalanx of right thumb Carpal tunnel syndrome of left wrist Distal radius fracture, left Asthma Hepatitis B Fibromyalgia Surgical History H/O breast surgery H/O reduction mammoplasty Hx of abdominoplasty (~2004) History of open reduction and internal fixation (ORIF) procedure (~02/2018) Hx of section (~1979) Hx of colonoscopy Family History Father Lung cancer Diabetes Hepatitis Brother Diabetes Lung cancer Sister Gastritis Social History Alcohol intake: never Patient Tobacco Use Status: Never used Tobacco e-Cigarette/Vaping Use: Never Used Advance Directives Date on File: 08/16/20 Review of Systems Const Denies fatigue, Denies fever(s), Denies night sweats, Denies poor appetite and Denies weight loss ENT Reports Normal hearing present, Denies dental pain, Denies dysphagia, Denies hearing loss, Denies mouth pain, Denies odynophagia, Denies throat swelling, Denies tongue swelling and Reports other (Dentition adequate) Card Reports no additional complaints Resp Reports no additional complaints GI Details: Denies abdominal pain, Denies melena, Denies bloating, Denies hematochezia, Reports constipation, Denies GI cramping, Denies dysphagia, Denies excessive flatus, Denies early satiety, Reports heartburn, Denies diarrhea, Denies nausea, Denies odynophagia, Denies vomiting and Denies hematemesis Skin/Breast Denies pruritus, Denies lesions, Denies rash and Denies jaundice Neuro Reports Normal hearing present and Denies Abnormal speech present Endo Denies fatigue Aller/Immun Denies throat swelling and Denies tongue swelling Physical Exam Vital Signs: Last Vital Signs Pulse 57 08/20/24 14:11 BP 98/60 08/20/24 14:11 BMI result Body Mass Index 22.3 Const General: cooperative, no acute distress, well developed and well groomed Nutritional Appearance: average body habitus and well nourished Orientation/consciousness: oriented to person, oriented to place and oriented to time Limitations: language barrier HEENT Head: Yes normocephalic and Yes atraumatic Eyes General: appearance normal, both eyes and all related structures Pupils: Equal, round and reactive pupils present Neck Neck: Yes normal visual inspection and Yes no lymphadenopathy Thyroid: Thyroid normal Resp Effort & Inspection: normal respiratory effort and able to speak in complete sentences Auscultation: clear to auscultation bilaterally Cardio Rate: regular rate Rhythm: regular rhythm Heart sounds: Normal, physiologic split S2 sound present Peripheral pulses: radial pulses present and posterior tibial pulses present GI Inspection: No distended and No Abdominal panniculus present Palpation (GI): Soft to palpation, nontender, no guarding, not rigid and No hepatosplenomegaly present Percussion: Yes normal to percussion Auscultation: normal bowel sounds Rectal Exam - Female: deferred Skin General skin exam: no rashes or lesions noted, turgor normal, skin not dry, no jaundice, No spider nevi and no striae Rashes: no rashes Nails: normal Neuro General: oriented to person, oriented to place and oriented to time Cranial nerves: Yes Equal, round and reactive pupils present and Yes Normal hearing present Speech: No Abnormal speech present Extrem General: Yes normal to inspection, No clubbing, No cyanosis and No edema Psych Appearance: grossly normal and well kempt Mental Status: mental status grossly normal Speech and movement: Normal speech and movement present Affect: normal affect Attitude: cooperative Thought process: Normal thought process present and not confabulating Thought content: Normal thought content present Insight: Limited insight present (Psych) Judgement: Limited judgement present (Psych) Assessment & Plan Assessment & Plan (1) GERD (gastroesophageal reflux disease): Code(s): K21.9 - Gastro-esophageal reflux disease without esophagitis Category: Medical (2) Chronic idiopathic constipation: Code(s): K59.04 - Chronic idiopathic constipation Category: Medical (3) Diverticulitis: Code(s): K57.92 - Diverticulitis of intestine, part unspecified, without perforation or abscess without bleeding Category: Medical Plan Serbian #Ilya Live She is feeling much better after the abx tx - so it appears that she had an atypical presentation of diverticulitis - feeling it on the right instead of the right side. She continues on her Reglan 10 mg 4 times a day, Linzess 290 micro g, Dexilant, and bisacodyl. The only problem she is having is that the pharmacy is not supplying her the correct amt of pills. I'm unsure if this is a miscount, or qty limit via insurance. I advise her that she can also buy the bisacodyl OTC and it is fairly inexpensive. She admits she has already purchased it. I will send an rx for augmentin in case her sx return. She is educated that if she has to take it she should call me and be sure to complete the dose. ROV 6 mos. Medications: New amoxicillin-pot clavulanate 875-125 mg 1 tab PO BID 20 tabs 0RF 10 days K57.92 - Diverticulitis of intestine, part unspecified, without perforation or abscess without bleeding Changed From bisacodyl 10 mg (2 x 5 mg) PO BEDTIME 30 days 60 tabs 6RF K59.04 - Chronic idiopathic constipation To bisacodyl (Dulcolax (bisacodyl)) 10 mg (2 x 5 mg) PO BEDTIME 180 tabs 1RF 90 days K59.04 - Chronic idiopathic constipation Refilled dexlansoprazole (Dexilant) 60 mg PO BEDTIME 30 caps 6RF K21.9 - Gastro- esophageal reflux disease without esophagitis docusate sodium 200 mg (2 x 100 mg) PO BEDTIME PRN 60 caps 6RF for constipation K59.04 - Chronic idiopathic constipation linaclotide (Linzess) 290 mcg PO QAM 30 caps 6RF K59.04 - Chronic idiopathic constipation metoclopramide HCl 10 mg PO QID 120 tabs 6RF simethicone 180 mg PO QID 120 caps 6RF R14.0 - Abdominal distension (gaseous) Coding Level of Care Code Est Pt Level 3 (70445) Diagnoses GERD (gastroesophageal reflux disease) K21.9 Chronic idiopathic constipation K59.04 Diverticulitis K57.92
[2024-08-20 14:11] VITALS: BP 98/60; PULSE 57; BMI 22.3
== END 2024-08-20 15:14 | disposition home or self-care (01) ==
PROVIDERS: PCP Family Medicine; Visit Provider Nurse Practitioner
DX: K21.9 Gastro-esophageal reflux disease without esophagitis (principal); K59.04 Chronic idiopathic constipation; K57.92 Diverticulitis of intestine, part unspecified, without perforation or abscess without bleeding
CPT/HCPCS: 99213

== ENCOUNTER → 2024-08-20 14:02 | Outpatient (BNVA) | payer OTHER, SELFPAY | PROVIDERS: PCP Family Medicine; Visit Provider Nurse Practitioner | DX: K21.9 Gastro-esophageal reflux disease without esophagitis (principal); K59.04 Chronic idiopathic constipation; K57.92 Diverticulitis of intestine, part unspecified, without perforation or abscess without bleeding; R10.9 Unspecified abdominal pain; K30 Functional dyspepsia | CPT/HCPCS: 99212 ==

== ENCOUNTER 2025-01-10 09:18 | Inpatient (IN) | payer OTHER, SELFPAY ==
[2025-01-10] VITALS (33 sets, daily range): BP systolic 78–122; BP diastolic 37–90; PULSE 67–113; RESP 12–23; TEMP 36.8–37.4; O2SAT 93–98; BMI 24.8; BMI 23.2
--- NOTE | ~2025-01-10 | MR_ITS ---
CLINICAL HISTORY: ?tia word finding difficulty aphasia MR of the brain without contrast Comparison: CT/SR - CT ANGIO HEAD NECK STROKE - 01/14/25 15:[address]/MI/SR - CT HEAD FOR STROKE - 01/14/25 15:[address]/SR - CT HEAD FOR STROKE [id number] - 03/08/17 18:47 EDT Findings: No acute infarction, hemorrhage, mass-effect or herniation. No hydrocephalus. Increased signal intensity is seen in the deep and periventricular white matter on the T2/FLAIR sequences, which most likely represents the sequela of mild chronic small vessel ischemic disease. No extra-axial fluid collection or mass. Unremarkable sella. Intact flow voids. Normal orbits. There is fluid signal in a few left mastoid air cells which could be secondary to effusion. Mastoiditis is considered less likely. Otherwise clear paranasal sinuses and mastoid air cells. Unremarkable osseous structures. Impression: No acute infarction. This document has been electronically signed by: Emely Ramírez MD on 01/14/2025 18:32:17
--- NOTE | ~2025-01-10 | CT_ITS ---
EXAMINATION: CTA NECK WITH CONTRAST (STROKE) CTA BRAIN WITH CONTRAST (STROKE) CLINICAL INFORMATION: Suspect acute stroke. Assess for major vessel occlusion. Please call report. COMPARISON: None available. TECHNIQUE: CTA of the head and neck was performed in the axial plane from the mediastinum to the skull vertex using 70 mL Omnipaque 350 intravenous contrast. Additional reformatted multiplanar images including maximum intensity projection MIP images are generated on the CT workstation. This CT examination was performed using dose optimization techniques as appropriate, variously including the following: *Automated exposure control *Adjustment of mA and/or kV according to patient size (this includes techniques or standardized protocols for targeted exams where dose is matched to indication/reason for exam; i.e. extremities or head) *Use of iterative reconstruction technique FINDINGS: The degree of stenosis determined by criteria similar to NASCET. Brain: There is no enhancing mass, edema or midline shift. The lateral ventricles are symmetrical in size and configuration without enlargement. No calvarial abnormality seen. Bilateral paranasal sinuses and mastoid air cells are well-aerated. UPPER CHEST CHEST AND NECK CTA: Normal three-vessel branching of the aortic arch is noted the origins are widely patent. The right common carotid artery of the brachiocephalic and left common carotid artery of the arch are widely patent. Both common carotid arteries are patent in the neck. There is normal bifurcation into intellectual carotid arteries. Bilateral interval carotid arteries are widely patent extending into the skull base. The right vertebral artery is patent throughout its course in the neck. Left vertebral artery is patent with mild tortuosity in the proximal segment. There is no vascular abnormality. Brain CTA: Both vertebral arteries are codominant and unite to form basilar artery the basilar artery terminates into bilateral equal posterior cerebral arteries no evidence of aneurysm or dissection seen. The small bowel patent bilateral posterior tibial arteries. Bilateral internal carotid arteries are of normal caliber extending through the skull base, petrous, cavernous and supraclinoid ICA segments. Both carotid arteries bifurcate into anterior middle cerebral arteries. The middle cerebral arteries continue is M1 and M2 segments and are widely patent. No aneurysm or dissection seen. Anterior cerebral arteries communicate via a small ventricular indicating artery. The major sinuses are widely patent. CT/CT angio head neck STROKE IMPRESSION: Unremarkable CTA neck and brain. This critical test result is communicated to: Rossi Rao at 4.11 pm by tiger text Electronically signed by: Roman Warren MD 01/14/2025 04:13 PM EST
--- NOTE | ~2025-01-10 | CT_ITS ---
EXAMINATION: CT HEAD WITHOUT CONTRAST (STROKE PROTOCOL) CLINICAL INFORMATION: Stroke protocol. COMPARISON: None available. TECHNIQUE: Contiguous axial imaging was performed from the skull base to vertex without intravenous administration of contrast. This CT examination was performed using dose optimization techniques as appropriate, variously including the following: *Automated exposure control *Adjustment of mA and/or kV according to patient size (this includes techniques or standardized protocols for targeted exams where dose is matched to indication/reason for exam; i.e. extremities or head) *Use of iterative reconstruction technique DLP: 557 mGy centimeter. FINDINGS: Limited by patient's positioning on the CT scanner. No acute intracranial hemorrhage, mass effect, midline shift, hydrocephalus or herniation. Peterson-white matter differentiation is normal. Calcified plaques in the cavernous supracavernous segments both ICA. Posterior cranial fossa contents demonstrated no acute intracranial hemorrhage or mass effect. Sellar/suprasellar region demonstrated no gross masses. No air-fluid levels in the included paranasal sinuses. Poor pneumatization left frontal sinus. Tympanic cavities and mastoid air cells are aerated. CT/CT head for STROKE IMPRESSION: No acute intracranial hemorrhage or acute brain abnormality by CT. This critical result was discussed with physician assistant manager pt Rossi gramajo at 3:54 PM hours on January 14, 2025.. It was ascertained that the content and urgency of the report was understood at the time of direct communication. Electronically signed by: Paul Whitney MD 01/14/2025 03:56 PM [facility]
[2025-01-10] MEDS: EPINEPHrine 1 MG/ML VIAL 0.3 MG IM ×2 (09:57→10:14)
[2025-01-10] MEDS: methylPREDNISolone Sod Succ 125 MG/2 ML VIAL IVPUSH (09:57)
[2025-01-10] MEDS: diphenhydrAMINE HCL 50 MG/ML VIAL IVPUSH (09:57)
[2025-01-10] MEDS: Famotidine/PF 20 MG/2 ML VIAL IVPUSH (09:57)
[2025-01-10] MEDS: 0.9 % Sodium Chloride 1,000 ML 999 ML IV (09:58)
--- OUTSIDE RECORDS SUMMARY | 2025-01-10 09:58 | XMS_ITS | Encounter Summary ---
Author Organization [employer] Address [address] [place] [address] [address] [place] [address] Care Team Providers Care Release Specialist Name Role Phone Maryana Winkler MD Primary Care Provider [phone] Encounter Details Date Type Department Care Team (Latest Contact Info) Description 03/23/2022 Abstract [facility] CONVERSIONS Dental, Provider, DDS Social History Tobacco Use Types Packs/Day Years Used Date Smoking Tobacco: Never Assessed Comments Unknown Sex and Gender Information Value Date Recorded Sex Assigned at Female 09/11/2022 10:21 AM EDT Legal Sex Female 10:21 AM EDT Gender Identity Female 09/11/2022 10:21 AM EDT Sexual Orientation Straight 09/11/2022 10 :21 AM EDT documented as of this encounter Plan of Treatment Upcoming Encounters Date Type Department Care Team (Late st Contact Info) Description 01/14/2025 8:00 AM EST Office Visit [facility] ADULT DENTAL [address] [place] [address] Werner [facility]aris [address] [place] [address] 11/30/2025 9:00 AM EST Medication Management [facility] MEDICINE [address] [place] [address] documented as of this encounter Visit Diagnoses Not on filedocumented in this encounter Care Teams Release Specialist Relationship Specialty Start Date End Date Maryana Winkler MD [address] [place] [address] PCP - General Family Medicine 11/12/18 documented as of this encounter
--- OUTSIDE RECORDS SUMMARY | 2025-01-10 09:58 | XMS_ITS | Encounter Summary ---
Author Organization [facility] Address [address] [place] [address] [address] [place] [address] Care Team Providers Care Atomic Process Engineer Name Role Phone Maryana Winkler MD Primary Care Provider [phone] Encounter Details Date Type Department Care Team (Latest Contact Info) Description 03/16/2021 Abstract [facility] CONVERSIONS Dental, Provider, DDS Social [...] Description 01/14/2025 8:00 AM EST Office Visit [facility] ADULT DENTAL [address] [place] [address] Werner [facility]aris [address] [place] [address] 11/30/2025 9:00 AM EST Medication Management [facility] MEDICINE [address] [place] [address] documented as of this encounter Visit Diagnoses Not on filedocumented in this encounter Care Teams Atomic Process Engineer Relationship Specialty Start Date End Date Maryana Winkler MD [address] [place] [address] PCP - General Family Medicine 11/12/18 documented as of this encounter
--- OUTSIDE RECORDS SUMMARY | 2025-01-10 09:58 | XMS_ITS | Encounter Summary ---
Author Organization [employer] Address [address] [facility] 7t [place] [address] Care Team Providers Care Installation Engineer Name Role Phone Maryana Winkler MD Primary Care Provider [phone] Reason for Visit * Reason Comments Med Refill Encounter Details Date Type Department Care Team ([facility] st Contact Info) Description 08/02/2024 Refill [facility] MEDICINE [address] [place] [address] Maryana Winkler MD [address] [place] [address] Social History Tobacco Use Types Packs/Day Years Used Date Smoking Tobacco: Never Passive Smoke Exposure: Never Smokeless Tobacco: Never Alcohol Use Standard Drinks/Week Comments Defer 0 (1 standard drink = 0.6 oz pur e alcohol) Depression Answer Date Recorded Patient Health Questionnaire-9 Score 13 12/18/2023 Patient Health Questionnaire-9 Score 13 12/18/2023 Last PHQ-9: Questionnaire Data Not on file 0 12/18/2023 Housing Stability Answer Date Recorded What is your housing situation today? I have aki ortiz 08/27/[address] you li ve. Do you have problems with any of the following? None of the above 08/27/2023 Food Insecurity Answer Date Recorded Within the past 12 months, y ou worried that your food would run out before you got money to buy more: Never True 08/27/2023 Within the past 12 months,th e food you bought just didn't last and you didn't have enough money to get more: Never True Transportation Answer Date Recorded In the past 12 months, has l ack of transportation kept you from medical appts, meetings, work or from getting things needed for daily living? No 08/27/2023 Utilities Answer Date Recorded In the past 12 months, has t he electric, gas, oil or water company threatened to shut off services in your home? No 08/27/2023 Depression Answer Date Recorded Patient Health Questionnaire-2 Score 2 12/18/2023 Comments Unknown Sex and Gender Information Value [...] Description 01/14/2025 8:00 AM EST Office Visit [facility] ADULT DENTAL [address] [place] [address] Carl, [place] [address] [place] [address] 11/30/2025 9:00 AM EST Medication Management [facility] MEDICINE [address] [place] [address] documented as of this encounter Visit Diagnoses Not on filedocumented in this encounter Additional Health Concerns Assessment Noted Time PHQ-9 Depression Total Score: 13 024 11:34 AM EST documented as of this encounter Care Teams Installation Engineer Relationship Specialty Start Date End Date Maryana Winkler MD [address] [place] [address] PCP - General Family Medicine 11/12/18 documented as of this encounter
--- OUTSIDE RECORDS SUMMARY | 2025-01-10 09:58 | XMS_ITS | Encounter Summary ---
Author Organization [employer] Address [address] [facility] 7t [place] [address] Care Team Providers Care Laster Hand Name Role Phone Maryana Winkler MD Primary Care Provider Reason for Visit * Reason Comments Med Refill Encounter Details Date Type Department Care Team ([facility] st Contact Info) Description 08/13/2024 Refill [facility] MEDICINE [address] [place] [address] Maryana Winkler MD [address] [place] [address] Social History Tobacco Use Types Packs/Day Years [...] Description 01/14/2025 8:00 AM EST Office Visit [facility] ADULT DENTAL [address] [place] [address] Carl, [place] [address] [place] [address] 11/30/2025 9:00 AM EST Medication Management [facility] MEDICINE [address] [place] [address] documented as of this encounter Visit Diagnoses Not on filedocumented in this encounter Additional Health Concerns Assessment Noted Time PHQ-9 Depression Total Score: 13 024 11:34 AM EST documented as of this encounter Care Teams Laster Hand Relationship Specialty Start Date End Date Maryana Winkler MD [address] [place] [address] PCP - General Family Medicine 11/12/18 documented as of this encounter
--- OUTSIDE RECORDS SUMMARY | 2025-01-10 09:58 | XMS_ITS | Encounter Summary ---
Author Organization [employer] [facility] Address [address] [place] [address] [address] [place] [address] Care Team Providers Care Lamination Builder Name Role Phone Maryana Winkler MD Primary Care Provider [phone] Encounter Details Date Type Department Care Team (Latest Contact Info) Description 03/27/[address] [facility] CONVERSIONS Dental, Provider, DDS Social [...] Description 01/14/2025 8:00 AM EST Office Visit [facility] ADULT DENTAL [address] [place] [address] Werner Henryaris [address] [place] [address] 11/30/2025 9:00 AM EST Medication Management [facility] MEDICINE [address] [place] [address] documented as of this encounter Visit Diagnoses Not on filedocumented in this encounter Care Teams Lamination Builder Relationship Specialty Start Date End Date Maryana Winkler MD [address] [place] [address] PCP - General Family Medicine 11/12/18 documented as of this encounter
--- OUTSIDE RECORDS SUMMARY | 2025-01-10 09:58 | XMS_ITS | Encounter Summary ---
Author Organization [employer] Address [address] [place] [address] [address] [place] [address] Care Team Providers Care Community Case Manager Name Role Phone Maryana Winkler MD Primary Care Provider [phone] Reason for Visit * Reason Comments Med Refill Encounter Details Date Type Department Care Team (Late st Contact Info) Description 07/23/2023 Refill [facility] [address] [place], [place] [phone] Maryana Winkler MD [address] [place] [address] Allergic rhinitis, unspecified seasonality, unspecified trigger Social History Tobacco Use Types Packs/Day Years Used Date Smoking Tobacco: Never Passive Smoke Exposure: Never Smokeless Tobacco: Never Alcohol Use Standard Drinks/Week Comments Defer 0 (1 standard drink = 0.6 oz pur e alcohol) Depression Answer Date Recorded Patient Health Questionnaire-9 Score 4 12/14/2022 Depression Answer Date Recorded Patient Health Questionnaire-2 Score 2 12/14/2022 Comments Unknown Sex and Gender Information Value [...] Description 01/14/2025 8:00 AM EST Office Visit [facility] ADULT DENTAL [address] [place], [place] [phone] [place] Henry [address] [place] [address] 11/30/2025 9:00 AM EST Medication Management [facility] MEDICINE [address] [place] [address] documented as of this encounter Visit Diagnoses Diagnosis Allergic rhinitis, unspecified seasonality, unspecified trigger documented in this encounter Additional Health Concerns Assessment Noted Time PHQ-9 Depression Total Score: 4 12/14/19 23 9:31 AM EST documented as of this encounter Care Teams Community Case Manager Relationship Specialty Start Date End Date Maryana Winkler MD [address] [place] [address] PCP - General Family Medicine 11/12/18 documented as of this encounter
--- OUTSIDE RECORDS SUMMARY | 2025-01-10 09:58 | XMS_ITS | Encounter Summary ---
Author Organization [employer] Address [address] [place] [address] [address] [place] [address] Care Team Providers Care Safety Belt Installer Name Role Phone Maryana Winkler MD Primary Care Provider [phone] Encounter Details Date Type Department Care Team (Late st Contact Info) Description 07/17/2023 Abstract [facility] MEDICINE [address] [place] [address] Maryana Winkler MD [address] [place], [place] [phone] Social History Tobacco Use Types Packs/Day Years [...] Description 01/14/2025 8:00 AM EST Office Visit [facility] ADULT DENTAL [address] [place], [place] [phone] [place] Henry [address] [place] [address] 11/30/2025 9:00 AM EST Medication Management [facility] MEDICINE [address] [place] [address] documented as of this encounter Visit Diagnoses Not on filedocumented in this encounter Additional Health Concerns Assessment Noted Time PHQ-9 Depression Total Score: 4 12/14/19 23 9:31 AM EST documented as of this encounter Care Teams Safety Belt Installer Relationship Specialty Start Date End Date Maryana Winkler MD [address] [facility] [place] [address] PCP - General Family Medicine 11/12/18 documented as of this encounter
--- OUTSIDE RECORDS SUMMARY | 2025-01-10 09:58 | XMS_ITS | Clinical Summary ---
Author Organization [employer] Address [address] [facility] [address] [place] [address] Care Team Providers Care Tie Puller Name Role Phone Maryana Winkler MD Primary Care Provider [phone] Allergies Active Allergy Reactions Criticality Noted Date Comments Otho Oil Anaphylaxis High 12/07/2023 Fexofenadine Unknown Medications topiramate (Topamax) 100 MG tablet TAKE 1 TABLET BY MOUTH TWICE DAILY IN THE MORNING AND AT BEDTIME 2 Active SUMAtriptan (Imitrex) 100 MG tablet Take 100 mg by mouth if needed in the morning and at bedtime. 3 Active Simethicone Ultra Strength 180 MG capsule Take 180 mg by mouth 4 times daily. 3 Active propranolol LA (Inderal LA) 80 MG 24 hr capsule Take 80 mg by mouth in the evening. 2 Active metoclopramide (Reglan) 10 MG tablet Take 10 mg by mouth 4 times daily. 3 Active Linzess 290 MCG capsule Take 290 mcg by mouth in the morning. 2 Active hydrOXYzine HCl (Atarax) 50 MG tablet Take 50 mg by mouth at bedtime. 3 Active DULoxetine (Cymbalta) [address] capsule TAKE 1 CAPSULE BY MOUTH TWICE DAILY IN THE MORNING AND IN THE EVENING 2 Active docusate sodium (Colace) 100 MG capsule TAKE 2 CAPSULES BY MOUTH EVERY DAY AT BEDTIME NEEDED 3 Active Dexilant [address] capsule Take 1 capsule by mouth at bedtime. 2 Active busPIRone (Buspar) 15 MG tablet TAKE 1 TABLET BY MOUTH EVERY MORNING and TAKE 2 TABLETS BY MOUTH EVERY DAY AT BEDTIME 3 Active buPROPion XL (Wellbutrin XL) 300 MG 24 hr tablet Take 300 mg by mouth in the morning. 3 Active Bisacodyl EC 5 MG EC tablet TAKE 2 TABLETS BY MOUTH EVERY DAY AT BEDTIME 3 Active amitriptyline (Elavil) 50 MG tablet TAKE 2 TABLETS BY MOUTH EVERY DAY AT BEDTIME 3 Active albuterol (Ventolin HFA) 108 (90 Base) MCG/ACT inhalerIndicatio ns:Moderate persistent asthma with acute exacerbation Inhale 2 puffs every 4 (four) hours. 18 g 3 Active albuterol (2.5 MG/3ML) 0.083% nebulizer solutionIndicati ons:Wheezing Take 3 mL (2.5 mg) by nebulization every 4 (four) hours if needed for wheezing. 75 mL 3 3 Active Diclofenac Sodium 1 % gelIndications:A cute right ankle pain APPLY 2 GRAMS TOPICALLY TO AFFECTED AREA(S) TWICE DAILY NEEDED 100 g 4 Active Mometasone Furoate (Asmanex HFA) 200 MCG/ACT aerosol Take 1 puff twice daily 13 g 11 4 Active loratadine (Claritin) 10 MG tablet TAKE 1 TABLET BY MOUTH EVERY MORNING 90 tablet 3 4 Active montelukast (Singulair) 10 MG tablet TAKE 1 TABLET BY MOUTH EVERY EVENING 90 tablet 3 4 Active tacrolimus (Protopic) 0.1 % ointment Apply topically if needed in the morning and at bedtime (rash). 60 g 1 4 Active gabapentin (Neurontin) 400 MG capsule Take 1 capsule (400 mg) by mouth 3 times daily. 90 capsule 11 5 026 Active magnesium oxide (Mag-Ox) 400 (240 Mg) MG tablet Take 1 tablet by mouth in the morning. 4 Active atorvastatin (Lipitor) 40 MG tabletIndication s:Dyslipidemia TAKE 1 TABLET BY MOUTH EVERY EVENING 90 tablet 3 5 Active D3 Super Strength 50 MCG (2000 UT) capsule TAKE 1 CAPSULE BY MOUTH EVERY MORNING 30 capsule 3 5 Active Active Problems Problem Noted Date Diagnosed Date Polypharmacy 11/21/2024 Assessment & Plan (11/21/2024 12:29 PM EST): - referred to our pharmacist to assist in de-prescribing Breast cyst, right 07/22/2024 Breast cyst, left 07/22/2024 Assessment & Plan (11/11/2024 12:37 PM EST): - patient has history of seroma - patient had abnormal mammography on the left side in April 2024 - will evaluate cyst with US - follow-up mammography scheduled in October 2024 Assessment & Plan (07/22/2024 10:02 AM EDT): - patient has history of seroma - patient had abnormal mammography on the left side in April 2024 - will evaluate cyst with US - follow-up mammography scheduled in October 2024 Mass on back 07/22/2024 Assessment & Plan (11/21/2024 12:26 PM EST): - evaluate with US, if benign will discuss whether she wants to proceed with excisional surgery or continue monitoring Assessment & Plan (07/22/2024 9:59 AM EDT): - evaluate with US, if benign will discuss whether she wants to proceed with excisional surgery or continue monitoring Xerostomia 07/15/2024 Hypokalemia 03/18/2024 Right lower quadrant pain 03/18/2024 Assessment & Plan (07/22/2024 9:56 AM EDT): - intermittent, patient attributes to gas - Last abdominal US in Oct 2023 - normal - will evaluate with CT and request early appointment with Gi Assessment & Plan (03/24/2024 6:20 AM EDT): - intermittent, patient attributes to gas - Last abdominal US in Oct 2023 - normal - will evaluate with CT and request early appointment with Gi Allergic conjunctivitis 01/25/2024 Assessment & Plan (01/25/2024 5:23 AM EDT): pt with recurrent pruritic rash in face,upper chest from unclear etiology not present at this time Currently presents with localized itchy and mild swelling of upper left eyelid and likely bl allergic conjunctivitis -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 referred 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 -has apt w dermatology for this month -px today for ophthalmic azelastine and benadryl prn -advised to apply cold compresses on her eye -no suspicious at this time for uveitis from symptoms and exam but discussed alarm signs ans symptoms in case needs to come back to clinic for reevaluation -will hold on oral steroids with localized symptoms Missing teeth, acquired 12/07/2023 Disease of gingiva due to dental restorative mat erial 06/26/2023 Dental plaque 06/05/2023 Localized gingival recession 03/29/2023 Closed fracture of left distal radius 02/08/2023 Overview (02/08/2023): s/p ORIF 01/25/23 Assessment & Plan (04/30/2023 7:37 PM EDT): - s/p Left Distal radius fracture open reduction internal fixation, extra- articular on 01/25/[address] Smitha Greene at [facility] -continue following with recommendations by Orthopedist -no longer in cast -Continue occupational therapy Assessment & Plan (02/08/2023 1:33 PM EDT): S/p surgery on 01/25/23 -continue following with recommendations by Orthopedist -currently in cast -pt would benefit from CD TECHNICIAN services Closed displaced fracture of proximal phalanx of right thumb 02/08/2023 Overview (02/08/2023): s/p ORIF 01/25/23 Assessment & Plan (04/30/2023 7:36 PM EDT): - s/p Right thumb proximal phalanx base fracture closed reduction percutaneous pinning on 01/25/23 -continue following with recommendations by Orthopedist -Treated with Immobilization Cast, no longer in cast -continue Occupational Therapy -Most Recent Evaluation with XR showed: normal healing Fracture of unspecified phal anx of right thumb, subsequent encounter for fracture with routine healing 02/08/2023 Wrist fracture, left, closed, initial encounter 02/08/2023 Posttraumatic seroma 12/18/2022 Obstructive sleep apnea syndrome 12/18/2022 Assessment & Plan (12/24/2023 5:34 AM EST): - significant weight loss - JAMI symptoms seem to have resolved, but still having poor quality of sleep - continue judicious use of medication Acute pain of right knee 12/14/2022 Assessment & Plan (12/14/2022 10:04 AM EST): S/p fall 2 weeks ago, did not seek medical attention , already taking pain medication. Continue pain management Plain films ordered Personal history of COVID-19 10/23/2022 Primary osteoarthritis of both knees 07/25/2018 Endometrial hyperplasia 10/25/2017 Assessment & Plan (12/24/2023 5:47 AM EST): - endometrial biopsy in 2018 which was normal Carpal tunnel syndrome of left wrist 04/02/2017 Overview (02/08/2023): CTR 01/25/23 Assessment & Plan (11/21/2024 12:23 PM EST): - s/p left carpal tunnel release on 01/25/23 (left distal radius ORIF at the same time) - she has been attending OT -continue following recommendations by Orthopedist Assessment & Plan (04/30/2023 7:29 PM EDT): - s/p left carpal tunnel release on 01/25/23 (left distal radius ORIF at the same time) - she has been attending OT -continue following recommendations by Orthopedist Assessment & Plan (02/08/2023 1:34 PM EDT): S/p ROIF, left carpal tunnel release on 01/25/23 Post-op follow-up with Orthopedist on 02/07/23, sutures were removed -continue following recommendations by Orthopedist Rotator cuff tear arthropathy 02/03/2016 Sicca syndrome 02/03/2016 Assessment & Plan (04/30/2023 7:40 PM EDT): - following with rheumatology - on hydroxychloroquine - continue periodic eye exam and dental exam Degeneration of lumbar intervertebral disc 08/17 Assessment & Plan (12/24/2023 5:49 AM EST): Following with [facility] Distribution Center Assistant, last seen in Jun 2023 -Patient was Prescribed Baclofen as visit - continue baclofen - continue lidoderm patches - continue Diclofenac gel - continue acetaminophen prn - judiciously use Ibuprofen/Motrin/Naproxen - continue Gabapentin - recommended to contact Distribution Center Assistant regarding MRI Scheduling - Distribution Center Assistant is planning to place a Peripheral Nerve Stimulator after MRI Scan Assessment & Plan (04/30/2023 7:37 PM EDT): Following with [facility] Distribution Center Assistant, last seen on 04/02/23 -Patient was Prescribed Baclofen as visit - continue baclofen - continue lidoderm patches - continue Diclofenac gel - continue acetaminophen prn - judiciously use Ibuprofen/Motrin/Naproxen - continue Gabapentin - recommended to contact Distribution Center Assistant regarding MRI Scheduling - Distribution Center Assistant is planning to place a Peripheral Nerve Stimulator after MRI Scan Irritable bowel syndrome 08/17/2015 Assessment & Plan (11/11/2024 12:37 PM EST): -following with [facility] GI, last seen in Oct 2023 -prescribed simethicone, metoclopramide, and Linzess -continue current treatment plan per GI Assessment & Plan (12/24/2023 5:46 AM EST): -following with [facility] GI, last seen in Oct 2023 -prescribed simethicone, metoclopramide, and Linzess -continue current treatment plan per GI Assessment & Plan (02/18/2023 7:30 AM EDT): -following with [facility] GI, last seen in Oct 2022 -prescribed simethicone, metoclopramide, and Linzess -continue current treatment plan per GI Migraine 12/02/2014 Assessment & Plan (11/11/2024 1:24 PM EST): - following with neurologist - recommended to discuss with neurologist regarding to reducing or tapering down / off TCA - Pt is prescribed Propanolol for headache, pt is advised to taper down and then off this medication. Assessment & Plan (03/18/2024 9:25 AM EDT): - following with neurologist - recommended to discuss with neurologist regarding to reducing or tapering down / off TCA Assessment & Plan (12/24/2023 5:56 AM EST): - following with neurologist - recommended to discuss with neurologist regarding to reducing or tapering down / off TCA Fibromyalgia 08/13/2014 Assessment & Plan (11/21/2024 12:25 PM EST): -Sandfill Operator: [facility], last visit in 01/22/24 -referred to orthopedist and painter helper -previously taking hydroxychloroquine for possible inflammatory arthritis (Hx LAZARO and RF positive), and it was discontinued by new laboratory clerk -Patient was interested in CBD treatment previously -Pt has tried physical therapies several times, and currently practicing it at home -patient is attending acupuncture. Encouraged to continue -Encouraged to try Taichi and Yoga as recommended -Decrease gabapentin from 600 to 400 mg tid Assessment & Plan (07/26/2024 6:57 AM EDT): -Sandfill Operator: [facility], last visit in 01/22/24 -referred to orthopedist and painter helper -previously taking hydroxychloroquine for possible inflammatory arthritis (Hx LAZARO and RF positive), and it was discontinued by new laboratory clerk -Patient was interested in CBD treatment previously -Pt has tried physical therapies several times, and currently practicing it at home -patient is attending acupuncture. Encouraged to continue -Encouraged to try Taichi and Yoga as recommended Assessment & Plan (03/18/2024 9:37 AM EDT): -Sandfill Operator: [facility], last visit in 01/22/24 -referred to orthopedist and painter helper -previously taking hydroxychloroquine for possible inflammatory arthritis (Hx LAZARO and RF positive), and it was discontinued by new laboratory clerk -Patient was interested in CBD treatment previously -Pt has tried physical therapies several times -patient is attending acupuncture. -Encouraged to try Taichi and Yoga as recommended -Cont attending Acupuncture, since doing well. Assessment & Plan (12/24/2023 5:50 AM EST): -Sandfill Operator: [facility], last visit in 01/18/23 -referred to orthopedist and painter helper -previously taking hydroxychloroquine for possible inflammatory arthritis (Hx LAZARO and RF positive), and it was discontinued by new laboratory clerk -Patient was interested in CBD treatment previously -Pt has tried physical therapies several times -patient is attending acupuncture. -Encouraged to try Taichi and Yoga as recommended -Cont attending Acupuncture, since doing well. Assessment & Plan (04/23/2023 11:54 AM EDT): -Sandfill Operator: [facility], last visit in 01/18/23 -Discontinued Plaquenil -referred to orthopedist and painter helper -still taking hydroxychloroquine for possible inflammatory arthritis (Hx LAZARO and RF positive) -Patient was interested in CBD treatment previously -Pt has tried physical therapies several times -patient is attending acupuncture. -Encouraged to try Taichi and Yoga as recommended -Cont attending Acupuncture, since doing well. Assessment & Plan (02/08/2023 1:19 PM EDT): -Sandfill Operator: [facility], last visit in 01/18/23 -Discontinued Plaquenil -referred to orthopedist and painter helper -still taking hydroxychloroquine for possible inflammatory arthritis (Hx LAZARO and RF positive) -Patient was interested in CBD treatment previously -Pt has tried physical therapies several times -patient is attending acupuncture. -Encouraged to try Taichi and Yoga as recommended -Cont attending Acupuncture, since doing well. Chronic type B viral hepatitis 03/25/2014 Assessment & Plan (11/11/2024 12:37 PM EST): - Hepatitis E antibody reactive, Hep E antigen negative. - Viral load has been small and antiviral medication has not been indicated - Abd US in May 2023 unremarkable. - Abd CT in May 2024 showed no liver abnormality - 04/24/23 Hep B DNA 60 - 03/18/24 Hep B DNA 48 Assessment & Plan (07/26/2024 6:55 AM EDT): - Hepatitis E antibody reactive, Hep E antigen negative. - Viral load has been small and antiviral medication has not been indicated - Abd US in May 2023 unremarkable. - Abd CT in May 2024 showed no liver abnormality - 04/24/23 Hep B DNA 60 - 03/18/24 Hep B DNA 48 Assessment & Plan (03/18/2024 9:25 AM EDT): - Hepatitis E antibody reactive, Hep E antigen negative. - Viral load has been small and antiviral medication has not been indicated - Abd US in May 2023 unremarkable. - 04/24/23 Hep B DNA 60 Assessment & Plan (12/24/2023 5:45 AM EST): - Hepatitis E antibody reactive, Hep E antigen negative. - Viral load has been small and antiviral medication has not been indicated - Abd US in May 2023 unremarkable. - 04/24/23 Hep B DNA 60 Assessment & Plan (04/30/2023 7:33 PM EDT): - Hepatitis E antibody reactive, Hep E antigen negative. - Viral load has been small and antiviral medication has not been indicated - Abd US in 2013 unremarkable. - Recheck viral load and US Depressive disorder 02/24/2014 Assessment & Plan (11/21/2024 12:28 PM EST): - behavioral health service provider: Dr. Amaya - recommended to discuss with adjusting medications / reducing medications due to polypharmacy - Pt was advised to stop Prazosin due to hypotension. Assessment & Plan (12/24/2023 5:55 AM EST): - continue current treatment per behavioral health service provider - recommended to discuss with adjusting medications / reducing medications due to polypharmacy Generalized anxiety disorder 02/24/2014 Assessment & Plan (11/21/2024 12:27 PM EST): [facility] Continue current medication and treatment plan per Dr. Amaya Asthma 02/19/2014 Assessment & Plan (11/11/2024 12:36 PM EST): - Seen by her motor and generator assembler in Aug 2015. - well-controlled recently - change Flovent to Asmanex - continue montelukast - continue albuterol HFA and DuoNeb prn as rescue. - consider another pulmonary fxn test or sleep study if pt continue to has dyspnea - follow up in 3-4 mo Assessment & Plan (07/22/2024 9:56 AM EDT): - Seen by her motor and generator assembler in Aug 2015. - well-controlled recently - change Flovent to Asmanex - continue montelukast - continue albuterol HFA and DuoNeb prn as rescue. - consider another pulmonary fxn test or sleep study if pt continue to has dyspnea - follow up in 3-4 mo Assessment & Plan (03/18/2024 9:25 AM EDT): - Seen by her motor and generator assembler in Aug 2015. - well-controlled recently - change Flovent to Asmanex - continue montelukast - continue albuterol HFA and DuoNeb prn as rescue. - consider another pulmonary fxn test or sleep study if pt continue to has dyspnea - follow up in 3-4 mo Assessment & Plan (12/24/2023 5:37 AM EST): - Seen by her motor and generator assembler in Aug 2015. - well-controlled recently - change Flovent to Asmanex - continue montelukast - continue albuterol HFA and DuoNeb prn as rescue. - consider another pulmonary fxn test or sleep study if pt continue to has dyspnea - follow up in 3-4 mo Assessment & Plan (04/30/2023 7:31 PM EDT): - Seen by her motor and generator assembler in Aug 2015. - well-controlled recently - continue Flovent to 2 puff twice daily and Singulair as maintenance. - continue albuterol HFA and DuoNeb prn as rescue. - consider another pulmonary fxn test or sleep study if pt continue to has dyspnea - follow up in 3-4 mo Assessment & Plan (02/08/2023 1:35 PM EDT): Seen by her motor and generator assembler in Aug 2015. increase Flovent to 2 puff twice daily and Singulair as maintenance. Continue albuterol HFA and DuoNeb prn as rescue. -consider another pulmonary fxn test or sleep study if pt continue to has dyspnea Allergic rhinitis 02/19/2014 Assessment & Plan (12/24/2023 5:54 AM EST): - continue montelukast and antihistamine Constipation 08/15/2013 Assessment & Plan (11/11/2024 12:36 PM EST): Following with [facility] GI Fiber rich diet Continue Dulcolax and Linzess Assessment & Plan (12/24/2023 5:45 AM EST): Following with [facility] GI Fiber rich diet Continue Dulcolax and Linzess Assessment & Plan (02/18/2023 7:28 AM EDT): Seen by GI on 11/02/22 Continue Dulcolax and Linzess Chronic neck pain 09/25/2012 Ankle pain 09/25/2012 Assessment & Plan (12/24/2023 5:48 AM EST): XR on 12/2022 suggests ankle sprain and plantar fasciitis -Continue wearing comfortable shoes -continue judicious use of NSAIDs -appropriate rest -continue leg elevation Assessment & Plan (04/23/2023 12:03 PM EDT): XR on 12/2022 suggests ankle sprain and plantar fasciitis -Continue wearing comfortable shoes -continue judicious use of NSAIDs -appropriate rest -continue leg elevation Assessment & Plan (02/08/2023 1:27 PM EDT): XR on 12/2022 suggests ankle sprain and plantar fasciitis -Continue wearing comfortable shoes -continue judicious use of NSAIDs -appropriate rest -continue leg elevation Assessment & Plan (12/14/2022 10:04 AM EST): S/p fall 2 weeks ago, did not seek medical attention , already taking pain medication. Continue pain management Plain films ordered Gastroesophageal reflux disease 09/25/2012 Assessment & Plan (11/11/2024 12:37 PM EST): -Following with [facility] GI, last seen in Oct 2023 -Continue Dexilant as prescribed by GI Assessment & Plan (12/24/2023 5:46 AM EST): -Following with [facility] GI, last seen in Oct 2023 -Continue Dexilant as prescribed by GI Assessment & Plan (02/18/2023 7:29 AM EDT): -Following with [facility] GI, last seen in Oct 2022 -Continue Dexilant as prescribed by GI Lung nodule 12/15/2011 Assessment & Plan (12/24/2023 5:39 AM EST): - an incidental finding of right middle lobe calcified granuloma - last CT in 2011, no further follow up was recommended Resolved Problems Problem Noted Date Diagnosed Date Resolved Date Class 1 obesity 12/18/2022 04/30/2023 DUB (dysfunctional uterine bleeding) 02/03/2016 12/24/2023 Moderate persistent asthma 09/27/2015 0 04/22/2023 Overweight 08/24/2015 12/24/2023 Encounters Date Type Department Care Team Description 12/06/2024 Refill [facility] [place] [id number] Maryana Winkler MD 12/04/2024 Refill [facility] [place] [address] Maryana Winkler MD Dyslipidemia 11/28/2024 Travel 11/18/2024 Orders Only [facility] [place] [address] Cristopher Cosme MD 11/11/2024 11:45 AM EST Office Visit [facility] [place] [address] Maryana Winkler MD Moderate persistent asthma without complication (Primary Dx); Chronic type B viral hepatitis (CMS/HCC); Fibromyalgia; Irritable bowel syndrome with constipation; Gastroesophageal reflux disease, unspecified whether esophagitis present; Chronic idiopathic constipation; Rotator cuff tear arthropathy of right shoulder; Mass on back; Generalized anxiety disorder; Breast cyst, left; Migraine without aura and without status migrainosus, not intractable; Depressive disorder; Carpal tunnel syndrome of left wrist; Bilateral carpal tunnel syndrome; Polypharmacy 11/11/2024 Travel 11/10/2024 Telephone [facility] [address] [place] [address] Macey Doe MA chart prep 10/20/2024 9:00 AM EST Office Visit [facility] [address] [place] [address] Elzbieta Wells MD Fibromyalgia (Primary Dx); Generalized anxiety disorder 10/20/2024 Travel 10/14/2024 Telephone [facility] [address] [place] [address] Toña Sahni MA decemebr recall 10/13/2024 9:00 AM EST Office Visit [facility] [address] [place] [address] Elzbieta Wells MD Fibromyalgia (Primary Dx); Generalized anxiety disorder 10/13/2024 Travel from Last 3 Months Immunizations Name Administration Dates Next Due Hep A, Adult 04/02/2017,03/25/2014 Hep B, adult 09/29/2014,05/06/2014,03/25/2014 Influenza injectable quadriv alent preservative free 12/18/2023,10/20/2021 Influenza, seasonal, injecta ble, preservative free 07/22/2024 Moderna Covid-19 Vaccine 6+ Bivalent 12/14/2022 Pfizer Covid-19 Vaccine 12+ 12/18/2023 Pneumococcal Conjugate PCV 20 02/08/2023 Pneumococcal Polysaccharide PPSV23 02/19/2014 TD (adult), 2 Lf tetanus tox oid, preservative free, adsorbed 06/13/2022 Tdap 12/01/2011 Zoster, Recombinant 05/18/2020,11/24/2019 Family History Medical History Relation Name Comments Lung cancer Brother Throat cancer Father Dementia Mother Heart attack Sister Tongue cancer Sister Obesity Son Relation Name Status Comments Brother Father Mother Sister Son Social History Tobacco Use Types Packs/Day Years Used Date Smoking Tobacco: Never Passive Smoke Exposure: Never Smokeless Tobacco: Never Tobacco Cessation:Counseling Given: Not Answered Alcohol Use Standard Drinks/Week Comments Defer 0 (1 standard drink = 0.6 oz pur e alcohol) Depression Answer Date Recorded Patient Health Questionnaire-9 Score 13 12/18/2023 Patient Health Questionnaire-9 Score 13 12/18/2023 Last PHQ-9: Questionnaire Data Not on file 0 12/18/2023 Housing Stability Answer Date Recorded What is your housing situation today? I have aki diana 08/27/[address] you li [...] Orientation Straight 09/11/2022 10 :21 AM EDT Last Filed Vital Signs Vital Sign Reading Time Taken Comments Blood Pressure 100/64 11/28/2024 9:46 AM EST Pulse 68 11/28/2024 9:46 AM EST Temperature 36.2 ??C (97.1 ??F) 11/11/2024 11:[address] Respiratory Rate 20 11/11/2024 11:50 AM EST Oxygen Saturation 98% 11/11/2024 11:50 AM EST Inhaled Oxygen Concentration - - Weight 50.4 kg (111 lb 3.2 oz) 11/11/2024 11:50 AM EST Height 149.9 cm (4' 11 ) 03/26/2024 9:44 AM EDT Body Mass Index 22.46 03/26/2024 9:44 AM EDT Plan of Treatment Upcoming Encounters Date Type Department Care Team (Late st Contact Info) Description 01/14/2025 8:00 AM EST Office Visit [facility] [address] [place] [address] [place], [place] [address] [place] [address] 11/30/2025 9:00 AM EST Medication Management [facility] [address] [place] [address] Health Maintenance Due Date Last Done Comments CT Colonography 1964 FIT DNA/Cologuard 1964 FIT 1964 FOBT 1964 Sigmoidoscopy 1964 Dental X-Ray: Full Mouth 03/17/2024 03/16/2021, 09/12 Dental X-Ray: Bitewings 03/30/2024 03/29/20 23, 03/23/2022, 03/16/2021, Additional history exists RSV Patients and Patients Aged 60 years or older (1 - Risk 60-74 years 1-dose series) 2024 Dental Oral Exam 06/07/2024 12/07/2023, , 03/23/2022, Additional history exists Depression Monitoring (PHQ-9) 06/17/2024 12/18/2023, 12/18/2023 COVID-19 Vaccine ( season) 2024 12/18/2023, 12/14/2022, 02/21/2022, Additional history exists SDOH Screening 12/06/2024 12/06/2023 Depression Screening 12/18/2024 12/18/2023, 12/18/19 24 Dental Prophylaxis 01/13/2025 07/15/2024, 0 12/07/2023, 06/05/2023, Additional history exists Pap Smear 01/16/2025 01/16/2022 Diagnostic Breast Imaging 04/27/20252023, 04/29/2024, 04/03/2023 Tobacco Screening 07/22/2025 07/22/2024 Alcohol/Substance Use Screening 11/11/2025 11/11/2024 Colonoscopy 2026 2016 Colorectal Cancer Screening 2026 Cervical Cancer Screening 01/16/2027 HPV/Cotest 01/16/2027 01/16/2022 DTaP/Tdap/Td Vaccines (3 - Td or Tdap) 06/13/2032 06/13/2022, 12/01/2011 Hepatitis B Vaccines Completed 09/29/2014, 05/06/2014, 03/25/2014 Hepatitis A Vaccines Completed 04/02/2017, 03/25/20 14 Zoster Vaccines Completed 05/18/2020, 11/24/2019 HIV Screening Completed 10/24/2021 Hepatitis C Screening Completed 10/24/2021 Pneumococcal Vaccine: 50+ Years Completed 02/08/2023, 02/19/2014 Influenza Vaccine Completed 07/22/2024, , 10/20/2021 HIB Vaccines Aged Out No longer eligi ble based on patient's age to complete this topic HPV Vaccines Aged Out No longer eligi ble based on patient's age to complete this topic IPV Vaccines Aged Out No longer eligi ble based on patient's age to complete this topic Meningococcal Vaccine Aged Out No fide sharlene eligible based on patient's age to complete this topic RSV under 20 months Aged Out No longe r eligible based on patient's age to complete this topic Rotavirus Vaccines Aged Out No longer eligible based on patient's age to complete this topic Procedures Procedure Name Priority Date/Time Associated Diagnosis Comments HM MAMMOGRAPHY Routine 10/27/2024 10:28 AM EST PROPHYLAXIS - ADULT Routine 07/15/2024 3 :00 PM EDT Dental plaque PERIODIC ORAL EVALUATION - ESTABLISHED PATIENT Routine 12/07/2023 10:00 AM EST BITEWINGS - 4 RADIOGRAPHIC IMAGES Routine 03/29/2023 8:00 AM EDT THINPREP IMAGING PAP AND HPV MRNA E6/E7, WITH CT/NG, TRICHOMONAS Routine 01/16/2022 1:29 PM EST ZZZ HISTORICAL HEPATITIS C AB W/REFL TO HCV RNA, QN, PCR Routine 10/24/2021 8:20 AM EST HIV 1/2 ANTIGEN/ANTIBODY, FOURTH GENERATION W/RFL Routine 10/24/2021 8:20 AM EST INTRAORAL - COMPLETE SERIES OF RADIOGRAPHIC IMAGES Routine 03/16/2021 12:00 AM EDT HM COLONOSCOPY Routine 2016 from Last 3 Months or Most Recently Relevant to Health Maintenance Results * Mammography (10/27/2024 10:28 AM EST) Anatomical Region Laterality Modality Other us Historical Provider HEALTH MAINTENANCE Final Result * THINPREP TIS PAP AND HPV mRNA E6/E7, CT/NG, TRICH (01/16/2022 1:29 PM EST) Chlamydia trachomatis RNA, TMA, Urogenital NOT DETECTED NOT DETECTED [facility] Clinical Information: None given [facility] COMMENT SEE COMMENT [facility] Comment: The analytical performance characteristics of this assay, when used to test SurePath(TM) specimens have been determined by [employer]. The modifications have not been cleared or approved by the FDA. This assay has been validated pursuant to the CLIA regulations and is used for clinical purposes. ?? For additional information, please refer to https://education.[place]/faq/HKL343 (This link is being provided for information/ educational purposes only.) ?? COMMENT SEE COMMENT [facility] Comment: EXPLANATORY NOTE: ? The Pap is a screening test for cervical cancer. It is ?? not a diagnostic test and is subject to false negative ?? and false positive results. It is most reliable when a ?? satisfactory sample, regularly obtained, is submitted ?? with relevant clinical findings and history, and when ?? the Pap result is evaluated along with historic and ?? current clinical information. ?? COMMENT: This Pap test has been evaluated with computer assisted technology. [facility] Internal Medicine Doctor: SEE COMMENT [facility] Comment: RXB, CT(ASCP) CT screening location: [address] ??[id number] HPV nRNA E6/E7 Not Detected Not Detected [facility] Comment: Methodology: Civil Structural Engineer-Mediated Amplification This assay detects E6/E7 viral messenger RNA (mRNA) from 14 high-risk HPV types (16,18,31,33,35,39,45,51,52,56,58,59,66,68). ? The analytical performance characteristics of this assay have been determined by [employer]. The modifications have not been cleared or approved by the FDA. This assay has been validated pursuant to the CLIA regulations and is used for clinical purposes. ?? For additional information, please refer to http://CloudMade.[place]/faq/IAT535k9 (This link if provided for information/ educational purposes only.) Interpretation/Re sult: Negative for intraepithelial lesion or malignancy. [facility] LMP: NONE GIVEN [facility] Neisseria gonorrhoeae RNA, TMA, Urogenital NOT DETECTED NOT DETECTED [facility] Prev. BX: NONE GIVEN [facility] Prev. PAP: NONE GIVEN [facility] SOURCE: None given [facility] Statement Of Adequacy: SEE COMMENT [facility] Comment: Satisfactory for evaluation. Endocervical/transformation zone component absent. Age and/or menstrual status not provided Trichomonas vaginalis, QL, TMA, PAP Vial NOT DETECTED NOT DETECTED [facility] Comment: The analytical performance characteristics of this assay have been determined by [employer]. The modifications have not been cleared or approved by the FDA. This assay has been validated pursuant to the CLIA regulations and is used for clinical purposes. ?? For additional information, please refer to http://[email or web address].[place]/ faq/Trichomonastma (This link is being provided for information/ educational purposes only.) ?? 01/16/2022 1:29 PM EST us Maryana Winkler MD LAB PATHOLOGY ORDERABLES Final R esult [facility] [address] * HEPATITIS C AB W/REFL TO HCV RNA, QN, PCR (10/24/2021 8:20 AM EST) HEPATITIS C ANTIBODY NON-REACT IMTIAZ NON-REACT IMTIAZ [facility] INDEX 0.02 <1.00 [facility] Comment: ?? HCV antibody was non-reactive. There is no laboratory ?? evidence of HCV infection. ?? In most cases, no further action is required. However, if recent HCV exposure is suspected, a test for HCV RNA (test code 16719) is suggested. ?? For additional information please refer to http://CloudMade.[place]/faq/UVA94x8 (This link is being provided for informational/ educational purposes only.) ?? 10/24/2021 8:20 AM EST Maryana Winkler MD HISTORICAL/NON ORDERABLE LABS Fi nal Result [facility] [address] * HIV 1/2 ANTIGEN/ANTIBODY,FOURTH GENERATION W/RFL (10/24/2021 8:20 AM EST) HIV-1/2 ANTIGEN AND ANTIBODIES, 4TH GENERATION W/ REFLEX NON-REACT IMTIAZ NON-REACT IMTIAZ [facility] Comment: HIV-1 antigen and HIV-1/HIV-2 antibodies were not detected. There is no laboratory evidence of HIV infection. ?? PLEASE NOTE: This information has been disclosed to you from records whose confidentiality may be protected by state law. ??If your state requires such protection, then the state law prohibits you from making any further disclosure of the information without the specific written consent of the person to whom it pertains, or as otherwise permitted by law. A general authorization for the release of medical or other information is NOT sufficient for this purpose. ? For additional information please refer to http://CloudMade.[place]/faq/MJB421 (This link is being provided for informational/ educational purposes only.) ? The performance of this assay has not been clinically validated in patients less than 2 years old. ?? 10/24/2021 8:20 AM EST Maryana Winkler MD LAB BLOOD ORDERABLES Final Resul t [facility] [address] [place] [id number], * (ABNORMAL) Colonoscopy (2016) Colonoscopy Normal(A) Normal 2016 Estee Smith [facility] MAINTENANCE Edited Result - Final from Last 3 Months or Most Recently Relevant to Health Maintenance Insurance [facility] D[facility] - [facility] Advance Directives Documents on File Type Date Recorded Patient Lobster Catcher Expl anation HealthCare Proxy 03/12/2023 Health Care Proxy Form Care Teams Tie Puller Relationship Specialty Start Date End Date Maryana Winkler MD [address] [place] [id number] PCP - General Family Medicine 11/12/18
--- OUTSIDE RECORDS SUMMARY | 2025-01-10 09:58 | XMS_ITS | Encounter Summary ---
Author Organization [email or web address] Address [address] [place] [address] Care Team Providers Care Home Economics Teacher Name Role Phone Maryana Winkler MD Primary Care Provider [phone] Encounter Details Date Type Department Care Team (Late st Contact Info) Description 11/18/2024 Orders Only [facility] [address] [place] [address] ProviderCristopher MD Social History Tobacco Use Types Packs/Day Years [...] Description 01/14/2025 8:00 AM EST Office Visit [facility] [address] [place] [address] Carl, [place] [address] [place] [address] 11/30/2025 9:00 AM EST Medication Management [facility] [address] [place] [address] documented as of this encounter Procedures Procedure Name Priority Date/Time Associated Diagnosis Comments MAMMOGRAPHY Routine 10/27/2024 10:28 AM EST documented in this encounter Results * Hm Mammography (10/27/2024 10:28 AM EST) Anatomical Region Laterality Modality Other Historical Provider HEALTH MAINTENANCE Final Result documented in this encounter Visit Diagnoses Not on filedocumented in this encounter Additional Health Concerns Assessment Noted Time PHQ-9 Depression Total Score: 13 024 11:34 AM EST documented as of this encounter Care Teams Home Economics Teacher Relationship Specialty Start Date End Date Maryana Winkler MD [address] [place] [address] PCP - General Family Medicine 11/12/18 documented as of this encounter
--- OUTSIDE RECORDS SUMMARY | 2025-01-10 09:58 | XMS_ITS | Encounter Summary ---
Author Organization [employer] [facility] Address [address] [address] 7[address] [place] [address] Care Team Providers Care Linotypist Name Role Phone Maryana Winkler MD Primary Care Provider [phone] Encounter Details Date Type Department Care Team (Late st Contact Info) Description 05/23/2023 Orders Only [facility] [address] [place] [address] [phone] Provider, MD Cristopher Social History Tobacco Use Types Packs/Day Years Used Date Smoking Tobacco: Never Passive Smoke Exposure: Never Smokeless Tobacco: Never Depression Answer Date Recorded Patient Health Questionnaire-9 Score 4 12/14/2022 Depression Answer Date Recorded Patient Health Questionnaire-2 Score 2 12/14/2022 Comments Unknown Sex and Gender Information Value Date Recorded Sex Assigned at Female 09/11/2022 10:21 AM EDT Legal Sex Female 10:21 AM EDT Gender Identity Female 09/11/2022 10:21 AM EDT Sexual Orientation Straight 09/11/2022 10 :21 AM EDT COVID-19 Exposure Response Date Recorded In the last 10 days, have yo u been in contact with someone who was confirmed or suspected to have Coronavirus/COVID-19? No / Unsure 05/21/2023 9:15 AM EDT documented as of this encounter Plan of Treatment Upcoming Encounters Date Type Department Care Team (Late st Contact Info) Description 01/14/2025 8:00 AM EST Office Visit [facility] [address], [place] [phone] [place], [place] [address], [place] [phone] 11/30/2025 9:00 AM EST Medication Management [facility] [address], [place] [phone] documented as of this encounter Procedures Procedure Name Priority Date/Time Associated Diagnosis Comments VITAMIN D 25-OH (D2 AND D3) Routine 01/16/2024 8:44 AM EST URINE ELECTROLYTES Routine 12/20/2023 10 :49 PM EST URINALYSIS WITH REFLEX MICROSCOPIC Routine 12/20/2023 10:49 PM EST ELECTROLYTE PANEL Routine 12/20/2023 10: 40 PM EST CBC WITH AUTO DIFFERENTIAL Routine 12/20/2023 4:46 PM EST MAGNESIUM Routine 12/20/2023 4:46 PM EST COMPREHENSIVE METABOLIC PANEL Routine 12/20/2023 4:46 PM EST US ABDOMEN COMPLETE Routine 05/23/2023 9 :54 AM EDT HM MAMMOGRAPHY Routine 04/03/2023 documented in this encounter Results * (ABNORMAL) VITAMIN D 25-OH (D2 AND D3) (01/16/2024 8:44 AM EST) Vitamin D, 25-OH, D2 6 ng/mL [facility] Comment:This test was develo ped and its analytical performancecharacteristics have been determined by [place]. It hasnot been cleared or approved by the U.S. Food and DrugAdministration. This assay has been validated pursuantto the CLIA regulations and is used for clinicalpurposes.THIS TEST WAS PERFORMED AT:[employer] [id number] [place] [address]JLHFRIDSAM WELLS MD,PHD Vitamin D, 25-OH, D3 20 ng/mL [facility] Comment:This test was develo ped and its analytical performancecharacteristics have been determined by [employer] [place], [place]. It hasnot been cleared or approved by the U.S. Food and DrugAdministration. This assay has been validated pursuantto the CLIA regulations and is used for clinicalpurposes. Vitamin D, 25-OH, Total 26(A) 30 - 100 ng/mL [facility] Comment:Vitamin D, 25-Hydrox y reports concentrations of twocommon forms, 25-OHD2 and 25-OHD3. 25-OHD3 indicatesboth endogenous production and supplementation.25-OHD2 is an indicator of exogenous sources such asdiet or supplementation. Therapy is based onmeasurement of Total 25-OHD, with levels <20 ng/mLindicative of Vitamin D deficiency, while levelsbetween 20 ng/mL and 30 ng/mL suggest insufficiency.Optimal levels are > or = 30 ng/mL.For additional information, please refer [email or web address](This link is being provided for informational/educational purposes only.) 01/16/2024 8:44 AM EST 01/16/2024 11:23 AM EST us Generic External Data Provider LAB BLOOD ORDERAB LES Final Result Performing Organization Address City/[facility]/ZIP Co de Phone Number [facility] [address] [place] [phone] * Urine electrolytes (12/20/2023 10:49 PM EST) Chloride Urine Random <20.0 mmol/L [facility] Sodium Urine Random 44.0 mmol/L [facility] Potassium Urine Random 7.7 mmol/L [facility] 12/20/2023 10:4 9 PM EST 12/20/2023 10:53 PM EST us Generic External Data Provider LAB URINE ORDERAB LES Final Result Performing Organization Address City/[facility]/ZIP Co de Phone Number [facility] [address] [place] [phone] * Urinalysis w/reflex microscopic (12/20/2023 10:49 PM EST) Pathologist [facility] Color Urine Yellow [facility] Appearance Urine Clear [facility] PH 8.0 5.0 - 9.0 [facility] Glucose Urine UA Negative Negative mg/dL [facility] Urine Blood Negative Negative [facility] Specific [place] - Urine 1.010 1.005 - 1.025 [facility] Urine Protein Negative Neg-Trace mg/dL [facility] Urine Ketones Negative Negative mg/dL [facility] Nitrite Urine Negative Negative [facility] Leukocyte Esterase Urine Negative Negative [facility] 12/20/2023 10:4 9 PM EST 12/20/2023 10:53 PM EST Narrative [facility] - 12/20/2023 10:56 PM EST [id number], [employer] Generic External Data Provider LAB URINE ORDERAB LES Final Result Performing Organization Address [facility] de Phone Number [facility] [address] [place] [phone] * Electrolyte Panel (12/20/2023 10:40 PM EST) [facility] Sodium 139 135 - 145 mmol/L [facility] Potassium 3.4 3.3 - 5.1 mmol/L [facility] Chloride 103 96 - 108 mmol/L [facility] Carbon Dioxide 27 22 - 29 mmol/L [facility] Anion Gap 12 12 - 20 [facility] 12/20/2023 10:4 0 PM EST 12/20/2023 10:43 PM EST us Generic External Data Provider LAB BLOOD ORDERAB LES Final Result Performing Organization Address [facility] de Phone Number [facility] [address] [place] [phone] * Magnesium (12/20/2023 4:46 PM EST) [facility] Magnesium 2.1 1.6 - 2.6 mg/dL [facility] 12/20/2023 4:46 PM EST 12/20/2023 4:49 PM EST us Generic External Data Provider LAB BLOOD ORDERAB LES Final Result [facility] [address] [place] [phone] * (ABNORMAL) Comprehensive Metabolic Panel (12/20/2023 4:46 PM EST) Sodium 136 135 - 145 mmol/L [facility] Potassium 2.6(LL) 3.3 - 5.1 mmol/L [facility] Comment:Critical value for t est(s): POTS Results called to and readback by: JAYLAN Person calling: SALIERD Date: 12/20/23 Time:1707 Chloride 98 96 - 108 mmol/L [facility] Carbon Dioxide 28 22 - 29 mmol/L [facility] Anion Gap 13 12 - 20 [facility] Urea Nitrogen (BUN) 10 9 - 16 mg/dL [facility] Creatinine, Serum 0.84 0.5 - 1.4 mg/dL [facility] Creatinine Clr Calc Pharmacy 49.1 [facility] Comment:Provided height and weight: 149.86 cm,49.5 kg.eGFR (calculated from the MDRD study equation) and eCrCl(calculated from the Cockcroft-Gault equation) are based ondifferent parameters and may not yield comparable results.If eCrCl result is absurd, please check patient'sheight/weight. Estimated Glomerular Filt Rate >60 [facility] Comment:NOTE: For -Am erican individuals, multiply the result by 1.210.Chronic Kidney Disease: Estimated GFR < 60 mL/min/1.98l5Nhmjcw Kidney Disease: Estimated GFR < 15 mL/min/1.73m2 Glucose 155(H) 60 - 115 mg/dL [facility] Calcium 9.2 8.4 - 10.2 mg/dL [facility] Bilirubin, Total 0.4 0.0 - 1.0 mg/dL [facility] Aspartate Amino Transferase 24 5 - 31 U/L [facility] Alanine Aminotransferase 14 0 - 31 U/L [facility] Total Protein 7.3 6.5 - 8.0 g/dL [facility] Albumin Level 4.1 3.5 - 5.0 g/dL [facility] Alkaline Phosphatase 72 39 - 117 U/L [facility] 12/20/2023 4:46 PM EST 12/20/2023 4:49 PM EST us Generic External Data Provider LAB BLOOD ORDERAB LES Final Result [facility] [address] [place] [phone] * (ABNORMAL) CBC auto differential (12/20/2023 4:46 PM EST) White Blood Count 6.9 4.8 - 10.8 X10*3/uL [facility] Red Blood Count 4.79 4.20 - 5.50 X10*6/uL [facility] Hemoglobin 14.7 12.0 - 16.0 g/dl [facility] Hematocrit 41.3 37.0 - 47.0 % [facility] Mean Corpuscular Volume 86.2 80.0 - 98.0 fL [facility] Mean Corpuscular Hemoglobin 30.7 27.0 - 33.0 pg [facility] Mean Corpuscular HGB Conc 35.6(H) 31.0 - 35.0 g/dl [facility] Red Cell Distribution Width 12.7 11.0 - 16.0 % [facility] Platelet Count 158(L) 160 - 400 X10*3/uL [facility] Mean Platelet Volume 9.4 9.4 - 12.3 fL [facility] Neutrophils Percent Auto 57.1 45 - 73 % [facility] Imm Gran Pct Auto 0.1 0.0 - 0.4 % [facility] Lymphocytes Percent Auto 33.5 20 - 40 % [facility] Monocytes Percent Auto 6.8 2 - 11 % [facility] Eosinophils Percent Auto 1.9 0 - 4 % [facility] Basophils Percent Auto 0.6 0 - 2 % [facility] NRBC Pct Auto 0.0 0.0 - 0.2 /100WBC [facility] Neutrophils Absolute Auto 4.0 2.0 - 8.3 x10*3/uL [facility] Imm Gran Abs Auto 0.01 0.00 - 0.03 X10*3/uL [facility] Lymphocytes Absolute Auto 2.3 1.2 - 4.9 X10*3/uL [facility] Monocytes Absolute Auto 0.5 0.1 - 1.2 X10*3/uL [facility] Eosinophils Absolute Auto 0.1 0.0 - 0.4 X10*3/uL [facility] Basophils Absolute Auto 0.0 0.0 - 0.2 X10*3/uL [facility] NRBC Abs Auto 0.000 0.0 - 0.012 X10*3/uL [facility] 12/20/2023 4:46 PM EST 12/20/2023 4:49 PM EST us Generic External Data Provider LAB BLOOD ORDERAB LES Final Result Performing Organization Address City/State/[facility] Co de Phone Number [facility] [address] [place] [phone] * US Abdomen Complete (05/23/2023 9:54 AM EDT) Anatomical Region Laterality Modality Abdomen Ultrasound 05/23/2023 9:54 AM EDT Narrative 05/26/2023 12:12 PM EDT ? [facility] ?[address] ?[place] [address] ? Ultrasound Report ? Signed ? Patient: Neifa,Tiffany M ?MR#: [id number] ?? 89 ? : 1965 ?Acct:[id number] ? Age/Sex: 58 / F ?ADM Date: /12/23 ? Loc: HO.US ? Attending Dr: Maryana Winkler MD ? Ordering Physician: Maryana Winkler MD ?? Date of Service: 05/23/23 ?? Procedure(s): US abdomen complete ?? Accession Number(s): [id number] ? cc: Maryana Winkler MD ? EXAMINATION: ?? US ABDOMEN COMPLETE ? CLINICAL INFORMATION: ?? Chronic viral hepatitis B. ? COMPARISON: ?? Ultrasound abdomen complete 04/09/2014. ? TECHNIQUE: ?? Real-time imaging of the abdominal viscera. ? FINDINGS: ? PANCREAS: The pancreas appears unremarkable, without masses or ductal ?? dilatation, with the exception of the tail which is obscured by bowel ?? gas. ? ABDOMINAL AORTA: The proximal, mid, and distal segments are normal in ?? caliber. ? INFERIOR VENA CAVA: Visualized portions are normal. ? LIVER: The liver is normal in size. The liver contour is normal. ?? Parenchymal echogenicity is normal. No focal hepatic lesion. There is ?? no intrahepatic biliary duct dilatation seen. ? GALLBLADDER: The gallbladder is physiologically distended without ?? evidence of stones, sludge, polyps, wall thickening or pericholecystic ?? fluid. ? COMMON BILE DUCT: Normal in caliber measuring 0.4 cm in diameter. ? RIGHT KIDNEY: There is mild fullness in the renal pelvis but no ?? hydronephrosis. No renal calculi or focal parenchymal lesions. The ?? kidney measures 9.3 cm in maximum dimension. ? LEFT KIDNEY: No hydronephrosis. No renal calculi or focal parenchymal ?? lesions. The kidney measures 10.3 cm in maximum dimension. ? SPLEEN: Normal. The spleen measures 8.2 cm in maximum dimension. ? FREE FLUID: None. ? US/US abdomen complete ?? IMPRESSION: ?? No significant abnormality is seen. ? Dictated By: ?Marcus Valente MD ? Signed By: ?<Electronically signed by Marcus Valente MD in OV> ? 05/26/23 1209 ? DD/ 0954 ? TD/TT: ? Skin Care Consultant: SS ? Procedure Note [place], [place] - 05/26/[address] [address] Ultrasound Report Signed Patient: Tiffany Vergara MMR#: [id number] [birth year] : 1965Acct:[id number] Age/Sex: 58 / FADM Date: 05/23/23 Loc: HO.US Attending Dr: Maryana Winkler MD Ordering Physician: Maryana Winkler MD Date of Service: 05/23/23 Procedure(s): US abdomen complete Accession Number(s): [id number] cc: Maryana Winkler MD EXAMINATION: US ABDOMEN COMPLETE CLINICAL INFORMATION: Chronic viral hepatitis B. COMPARISON: Ultrasound abdomen complete 04/09/2014. TECHNIQUE: Real-time imaging of the abdominal viscera. FINDINGS: PANCREAS: The pancreas appears unremarkable, without masses or ductal dilatation, with the exception of the tail which is obscured by bowel gas. ABDOMINAL AORTA: The proximal, mid, and distal segments are normal in caliber. INFERIOR VENA CAVA: Visualized portions are normal. LIVER: The liver is normal in size. The liver contour is normal. Parenchymal echogenicity is normal. No focal hepatic lesion. There is no intrahepatic biliary duct dilatation seen. GALLBLADDER: The gallbladder is physiologically distended without evidence of stones, sludge, polyps, wall thickening or pericholecystic fluid. COMMON BILE DUCT: Normal in caliber measuring 0.4 cm in diameter. RIGHT KIDNEY: There is mild fullness in the renal pelvis but no hydronephrosis. No renal calculi or focal parenchymal lesions. The kidney measures 9.3 cm in maximum dimension. LEFT KIDNEY: No hydronephrosis. No renal calculi or focal parenchymal lesions. The kidney measures 10.3 cm in maximum dimension. SPLEEN: Normal. The spleen measures 8.2 cm in maximum dimension. FREE FLUID: None. US/US abdomen complete IMPRESSION: No significant abnormality is seen. Dictated By: Marcus Valente MD Signed By: <Electronically signed by Marcus Valente MD in OV> 05/26/23 1209 DD/ 0954 TD/TT: Skin Care Consultant: SS us [facility] External Provider IMG US PROCEDURES Edited Result - Final * Hm Mammography (04/03/2023) Anatomical Region Laterality Modality Other us Historical Provider HEALTH MAINTENANCE Final Result documented in this encounter Visit Diagnoses Not on filedocumented in this encounter Additional Health Concerns Assessment Noted Time PHQ-9 Depression Total Score: 4 12/14/19 23 9:31 AM EST documented as of this encounter Care Teams Linotypist Relationship Specialty Start Date End Date Maryana Winkler MD [address] [place] [phone] PCP - General Family Medicine 11/12/18 documented as of this encounter
--- NOTE | 2025-01-10 10:10 | ED_ITS ---
HPI - Allergic Reaction General Chief complaint: Allergic Reaction Stated complaint: allergic reaction Time Seen by Provider: 01/10/25 09:47 Source: patient and family Mode of arrival: ambulatory Limitations: no limitations History of Present Illness ED Provider: ELVIA PAUL narrative: 59 yo female with PMH of constipation, GERD, delayed gastric empyting, fibromyalgia here with c/o eating a plant based smoothie this AM then developing nausea, diffuse itching hives, no resp issues but has never had an allergic reaction like this before. On arrival to the ED patient's blood pressure was in the 70s. After discussion with family and patient she tried suzie seeds today. She has otherwise been feeling healthy. MD complaint: allergic reaction, hives and facial swelling Onset (ago): hour(s) (1) Exposure: food Symptoms: rash and itching Severity: severe Treatment prior to arrival: none Previous Allergic Reaction History: none Related Data Home Medications ?Medication ?Instructions ?Recorded ?Confirmed albuterol sulfate 90 mcg/actuation 2 puff inhalation Q6H PRN asthma 10/19/20 01/22/24 aerosol inhaler amitriptyline 50 mg tablet 50 mg PO BEDTIME 10/19/20 01/22/24 atorvastatin 40 mg tablet 40 mg PO DAILY 10/19/20 01/22/24 bupropion HCl 300 mg 24 hr tablet, 300 mg PO QAM 10/19/20 01/22/24 extended release fluticasone propionate 220 1 puff inhalation BID 10/19/20 01/22/24 mcg/actuation HFA aerosol inhaler (Flovent HFA) gabapentin 600 mg tablet 600 mg PO TID 10/19/20 01/22/24 montelukast 10 mg tablet 10 mg PO DAILY 10/19/20 01/22/24 (Singulair) propranolol 80 mg capsule,24 80 mg PO DAILY 10/19/20 01/22/24 hr,extended release sumatriptan succinate 100 mg tablet See Rx Instructions PO .COMPLEX 10/19/20 01/22/24 hydroxyzine HCl 50 mg tablet 50 mg PO BEDTIME 06/16/21 01/22/24 melatonin 3 mg tablet 3 mg PO BEDTIME PRN insomnia 06/16/21 01/22/24 prazosin 1 mg capsule 1 mg PO BID 06/16/21 01/22/24 loratadine 10 mg tablet 10 mg PO DAILY 05/08/22 01/22/24 pilocarpine HCl 1 % eye drops 1 drp ophthalmic (eye) Q12H 05/08/22 01/22/24 topiramate 100 mg tablet 100 mg PO BID 05/08/22 01/22/24 buspirone 15 mg tablet 15 mg PO .COMPLEX 05/30/22 01/22/24 fluticasone propionate 50 1 spray intranasal QAM 11/02/22 01/22/24 mcg/actuation nasal spray,suspension mometasone 200 mcg/actuation HFA 2 puff inhalation BID 01/22/24 01/22/24 aerosol inhaler (Asmanex HFA) ciclopirox 8 % topical solution topical 05/01/24 Previous Rx's ?Medication ?Instructions ?Recorded cock up splint #2 ea 05/30/22 arm brace (Wrist Support One Size) #2 ea 06/06/22 duloxetine 60 mg capsule,delayed 60 mg PO BID #180 caps 07/20/22 release lidocaine 5 % topical patch 1 patch topical DAILY #30 ea 07/20/22 acetaminophen 500 mg tablet 1,000 mg (2 x 500 mg) PO QID PRN 01/23/23 (Tylenol Extra Strength) fever or pain #14 tabs ibuprofen 600 mg tablet 600 mg PO Q6-8H PRN pain #40 tabs 01/25/23 baclofen 10 mg tablet 10 mg PO BID PRN for muscle spasm 09/11/23 90 days #180 tabs potassium chloride 10 mEq 10 meq PO DAILY #7 caps 12/20/23 capsule,extended release diclofenac sodium 1 % topical gel 2 g topical BID PRN for pain #100 01/22/24 grams cholecalciferol (vitamin D3) 50 50 mcg PO QAM #30 caps 02/19/24 mcg (2,000 unit) capsule (Vitamin D3) dicyclomine 10 mg capsule 10 mg PO TID PRN abdominal pain 05/01/24 #90 caps amoxicillin 875 mg-potassium 1 tab PO BID 10 days #20 tabs 08/20/24 clavulanate 125 mg tablet bisacodyl 5 mg tablet,delayed 10 mg (2 x 5 mg) PO BEDTIME 90 08/20/24 release (Dulcolax (bisacodyl)) days #180 tabs dexlansoprazole 60 mg 60 mg PO BEDTIME #30 caps 08/20/24 capsule,biphase delayed release (Dexilant) docusate sodium 100 mg capsule 200 mg (2 x 100 mg) PO BEDTIME PRN 08/20/24 for constipation #60 caps linaclotide 290 mcg capsule 290 mcg PO QAM #30 caps 08/20/24 (Linzess) metoclopramide HCl 10 mg tablet 10 mg PO QID #120 tabs 08/20/24 simethicone 180 mg capsule 180 mg PO QID #120 caps 08/20/24 magnesium oxide 400 mg (241.3 mg 400 mg PO QAM #30 tabs 10/08/24 magnesium) tablet Allergies Allergy/AdvReac Type Severity Reaction Status Date / Time No Known Allergies Allergy Verified 01/10/25 09:37 [No Known Allergies*] Review of Systems 2 Review of Systems: Constitutional : No Fever, No Chills ENT/Mouth : nooral swelling, No Hoarseness, No Swallowing Difficulty Eyes: No Eye Pain, No Swelling, No Redness Cardiovascular : No Chest Pain, No SOB Respiratory : No Cough, No Sputum, No Wheezing, No Smoke Exposure, No Dyspnea Gastrointestinal : No Nausea, No Vomiting, No Diarrhea, No abdominal Pain Genitourinary : No Dysuria, No Urinary Frequency, No Hematuria Musculoskeletal : No joint pain, No Myalgias, No Joint Swelling Skin : No Skin Lesions, positive rash Neuro : No Weakness, No Numbness, No Headache All other systems reviewed and are negative PMF Past Medical History Attestation statement: The following information was validated with the patient. Source: old records reviewed Medical History Fracture of proximal phalanx of right thumb Carpal tunnel syndrome of left wrist Distal radius fracture, left Asthma Hepatitis B Fibromyalgia Surgical History H/O breast surgery H/O reduction mammoplasty Hx of abdominoplasty (~2004) History of open reduction and internal fixation (ORIF) procedure (~02/2018) Hx of section (~1979) Hx of colonoscopy Family History Family History Father Lung cancer Diabetes Hepatitis Brother Diabetes Lung cancer Sister Gastritis Social History Social History Alcohol intake: never Patient Tobacco Use Status: Never used Tobacco e-Cigarette/Vaping Use: Never Used Advance Directives: Yes Advance Directives Information Provided: Yes Advance Directives on File: No Advance Directives Date on File: 08/16/20 Physical Exam ED Vital Signs: Vital Signs - 24 hr 01/10/25 09:36 01/10/25 09:42 01/10/25 09:57 Temperature 98.3 F Pulse Rate 113 H 113 H Respiratory Rate 18 Blood Pressure 121/90 H 78/40 L 78/40 L Pulse Oximetry 93 Oxygen Delivery Method Room Air 01/10/25 10:01 01/10/25 10:07 01/10/25 10:14 Temperature Pulse Rate 93 96 90 Respiratory Rate 20 16 Blood Pressure 98/50 L 91/50 L 91/50 L Pulse Oximetry 96 95 Oxygen Delivery Method Room Air Room Air 01/10/25 10:18 01/10/25 10:38 01/10/25 11:33 Temperature Pulse Rate 83 79 75 Respiratory Rate 12 20 16 Blood Pressure 104/44 L 99/49 L 83/43 L Pulse Oximetry 98 97 Oxygen Delivery Method Room Air Room Air 01/10/25 12:08 01/10/25 12:38 01/10/25 12:47 Temperature Pulse Rate 71 84 88 Respiratory Rate 12 Blood Pressure 88/61 L 82/37 L 92/44 L Pulse Oximetry Oxygen Delivery Method 01/10/25 13:10 01/10/25 13:49 01/10/25 13:50 Temperature Pulse Rate 84 84 80 Respiratory Rate 16 Blood Pressure 122/53 L 115/53 L 110/47 L Pulse Oximetry 97 94 Oxygen Delivery Method Room Air 01/10/25 14:07 01/10/25 14:33 01/10/25 14:59 Temperature Pulse Rate 84 76 77 Respiratory Rate Blood Pressure 107/47 L 117/50 L 116/51 L Pulse Oximetry Oxygen Delivery Method 01/10/25 15:49 Temperature Pulse Rate 74 Respiratory Rate Blood Pressure 112/58 L Pulse Oximetry Oxygen Delivery Method BMI result Body Mass Index 23.2 Appearance: Alert. Oriented X3. mild acute distress. Eyes: Pupils equal, round and reactive to light. ENT: Pharynx normal. no swelling, no stridor Neck: Normal inspection. Neck supple. CVS: Normal heart rate and rhythm. Pulses normal. Respiratory: No respiratory distress. Breath sounds normal. Abdomen: Soft and nontender. Skin: Skin warm and dry. diffuse rash on neck, trunk, upper and lower ext red raised confluent welts she is actively itching Extremities: No lower extremity edema. No calf ttp Neuro: Oriented X 3. No motor deficit. No sensory deficit. CN2-12 intact Course Course Course Narrative: 15 min post first epi still with rash as well as BP only 91/50 2nd dose ordered she has no chest pain prior to 2nd dose Reevaluation(s) Reevaluation #1: allergy symptoms improved but she still has low BP, if no response to repeat IVF will start on epi gtt hypotension due to anaphylaxis and not infection or severe sepsis 11am wbc count due to acute phase and not infection or severe sepsis 11am Reevaluation #2: still hypotensive at this time will start epi drip for anaphylaxis. Medications Administered Generic Name Dose Route Start Last Admin Trade Name Freq PRN Reason Stop Dose Admin Epinephrine 5 mg/ Sodium 255 mls @ 0 mls/hr 01/10/25 12:15 01/10/25 15:49 Chloride IVCONT 0.2 mcg/kg/min .Q0M KIN 31.95 mls/hr Titration Protocol Per Protocol Discontinued Medications Generic Name Dose Route Start Last Admin Trade Name Freq PRN Reason Stop Dose Admin Diphenhydramine HCl 50 mg 01/10/25 09:48 01/10/25 09:57 Diphenhydramine Hcl 50 Mg/Ml Vial IVPUSH 01/10/25 09:49 50 mg ONCE ONE Administration Epinephrine 0.3 mg 01/10/25 09:48 01/10/25 09:57 Epinephrine 1 Mg/Ml Vial IM 01/10/25 09:49 0.3 mg STAT STA Administration Epinephrine 0.3 mg 01/10/25 10:11 01/10/25 10:14 Epinephrine 1 Mg/Ml Vial IM 01/10/25 10:12 0.3 mg STAT STA Administration Famotidine 20 mg 01/10/25 09:48 01/10/25 09:57 Famotidine/Pf 20 Mg/2 Ml Vial IVPUSH 01/10/25 09:49 20 mg ONCE ONE Administration Sodium Chloride 1,000 mls @ 999 mls/hr 01/10/25 09:48 01/10/25 10:17 Ns IV 01/10/25 10:48 Infused .Q1H1M ONE Infusion Lactated Ringer's 1,000 mls @ 999 mls/hr 01/10/25 11:27 01/10/25 12:42 Lr IV 01/10/25 12:27 Infused .Q1H1M ONE Infusion Methylprednisolone Sodium Succinate 125 mg 01/10/25 09:48 01/10/25 09:57 Methylprednisolone Sod Succ 125 Mg/2 Ml Vial IVPUSH 01/10/25 09:49 125 mg ONCE ONE Administration Medical Decision Making Medical Decision Making MDM Narrative: 59 yo female with PMH of constipation, GERD, delayed gastric empyting, fibromyalgia here with c/o diffuse rash, itching, nauseated after eating a plant based smoothie she is hypotensive at this time suspect anaphylaxis she has had immediate line placed, IV steroids, benadryl, pepcid and IM epi given the hypotension, IVF ordered. This has never happened to her before. Differential Diagnosis Differential Diagnoses: The differential diagnosis associated with the presentation includes allergy, anaphylaxis Admission/Observation Consideration of admission/observation: Escalation of care including admission/observation considered cannot stabilize off of epinephrine gtt will need admission to ICU Consult Healthcare Provider Management of the patient was discussed with: Second Operator (Dr. Davis aware will admit) Lab Data [facility] Lab Attestation statement: I reviewed the patient's lab results. WBC count elevated but no infectious symptoms reported 01/10/25 11:09 01/10/25 11:09 Labs: Lab Results 01/10/25 Range/Units 11:09 WBC 17.0 H (4.8-10.8) X10*3/uL RBC 4.51 (4.20-5.50) X10*6/uL Hgb 14.1 (12.0-16.0) g/dl Hct 41.5 (37.0-47.0) % MCV 92.0 (80.0-98.0) fL MCH 31.3 (27.0-33.0) pg MCHC 34.0 (31.0-35.0) g/dl RDW 13.3 (11.0-16.0) % Plt Count 163 (160-400) X10*3/uL MPV 10.3 (9.4-12.3) fL Immature Gran % (Auto) 0.3 (0.0-0.4) % Neut % (Auto) 90.6 H (45-73) % Lymph % (Auto) 5.4 L (20-40) % Roosevelt % (Auto) 3.6 (2-11) % Eos % (Auto) 0.0 (0-4) % Baso % (Auto) 0.1 (0-2) % Lymph # (Auto) 0.9 L (1.2-4.9) X10*3/uL Roosevelt # (Auto) 0.6 (0.1-1.2) X10*3/uL Eos # (Auto) 0.0 (0.0-0.4) X10*3/uL Baso # (Auto) 0.0 (0.0-0.2) X10*3/uL Abs Immat Gran (auto) 0.05 H (0.00-0.03) X10*3/uL Absolute Neuts (auto) 15.4 H (2.0-8.3) x10*3/uL Absolute Nucleated RBC 0.000 (0.0-0.012) X10*3/uL Nucleated RBC % (auto) 0.0 (0.0-0.2) /100WBC Sodium 142 (135-145) mmol/L Potassium 3.6 (3.3-5.1) mmol/L Chloride 111 H (96-108) mmol/L Carbon Dioxide 22 (22-29) mmol/L Anion Gap 13 (12-20) BUN 21 H (9-16) mg/dL Creatinine 0.71 (0.5-1.4) mg/dL Estim Creat Clear Calc 62.2 Estimated GFR > 60 Random Glucose 202 H (60-115) mg/dL Calcium 8.4 D (8.4-10.2) mg/dL C-Reactive Protein 0.11 (< or = 0.50) mg/dL Independent Historian Clinical information obtained from an independent historian. History obtained from or confirmed by: Spouse External Record Review External record reviewed: Outpatient record Critical Care Time Critical Care Time Critical Care Time: Yes Total Critical Care Time: 75 Attestation: repeat IM epi, epi gtt, repeat checks, consult I attest to this time spent taking care of the patient Discharge Plan Discharge Clinical Impression: Anaphylaxis, Acute hypotension Patient Disposition: Admitted As Inpatient Prescriptions: No Action buspirone 15 mg tablet 15 mg PO .COMPLEX Rx Instructions: 15 mg orally; 1 tab in the morning and 2 tabs at night (DME) Wrist Support One Size Misc See Rx Instructions .Route Qty: 2 0RF Rx Instructions: As directed baclofen 10 mg tablet 10 mg PO BID PRN (Reason: for muscle spasm) 90 Days Qty: 180 1RF cholecalciferol (vitamin D3) [Vitamin D3] 50 mcg (2,000 unit) capsule 50 mcg PO QAM Qty: 30 1RF magnesium oxide 400 mg (241.3 mg magnesium) tablet 400 mg PO QAM Qty: 30 6RF ibuprofen 600 mg tablet 600 mg PO Q6-8H PRN (Reason: pain) Qty: 40 0RF acetaminophen [Tylenol Extra Strength] 500 mg tablet 1,000 mg PO QID PRN (Reason: fever or pain) Qty: 14 0RF potassium chloride 10 mEq capsule, extended release 10 meq PO DAILY Qty: 7 0RF Flovent HFA 220 mcg/actuation HFA aerosol inhaler 1 puff inhalation BID albuterol sulfate 90 mcg/actuation HFA aerosol inhaler 2 puff inhalation Q6H PRN (Reason: asthma) sumatriptan succinate 100 mg tablet See Rx Instructions PO .COMPLEX Rx Instructions: take 1 tab at onset of headache; if no relief, may repeat 1 tab after at least 2 hrs; max = 2 tabs/24 hrs PO propranolol 80 mg capsule,extended release 24 hr 80 mg PO DAILY montelukast [Singulair] 10 mg tablet 10 mg PO DAILY gabapentin 600 mg tablet 600 mg PO TID bupropion HCl 300 mg tablet extended release 24 hr 300 mg PO QAM atorvastatin 40 mg tablet 40 mg PO DAILY amitriptyline 50 mg tablet 50 mg PO BEDTIME prazosin 1 mg capsule 1 mg PO BID hydroxyzine HCl 50 mg tablet 50 mg PO BEDTIME melatonin 3 mg tablet 3 mg PO BEDTIME PRN (Reason: insomnia) (DME) cock up splint See Rx Instructions .Route .MEDSUPPLY Qty: 2 0RF Rx Instructions: wear on each wrist at night. pilocarpine HCl 1 % drops 1 drp ophthalmic (eye) Q12H topiramate 100 mg tablet 100 mg PO BID loratadine 10 mg tablet 10 mg PO DAILY duloxetine 60 mg capsule,delayed release(DR/EC) 60 mg PO BID Qty: 180 1RF lidocaine 5 % adhesive patch,medicated 1 patch topical DAILY Qty: 30 1RF Rx Instructions: apply to painful areas for 12 hours max per day. Asmanex HFA 200 mcg/actuation HFA aerosol inhaler 2 puff inhalation BID diclofenac sodium 1 % gel 2 g topical BID PRN (Reason: for pain) Qty: 100 0RF fluticasone propionate 50 mcg/actuation spray,suspension 1 spray intranasal QAM ciclopirox 8 % solution topical dicyclomine 10 mg capsule 10 mg PO TID PRN (Reason: abdominal pain) Qty: 90 3RF bisacodyl [Dulcolax (bisacodyl)] 5 mg tablet,delayed release (DR/EC) 10 mg PO BEDTIME 90 Days Qty: 180 1RF Dexilant 60 mg capsule,biphase delayed releas 60 mg PO BEDTIME Qty: 30 6RF docusate sodium 100 mg capsule 200 mg PO BEDTIME PRN (Reason: for constipation) Qty: 60 6RF Linzess 290 mcg capsule 290 mcg PO QAM Qty: 30 6RF metoclopramide HCl 10 mg tablet 10 mg PO QID Qty: 120 6RF simethicone 180 mg capsule 180 mg PO QID Qty: 120 6RF amoxicillin-pot clavulanate 875-125 mg tablet 1 tab PO BID 10 Days Qty: 20 0RF Print Language: Khmer
[2025-01-10 11:13] LABS: MANUAL DIFF FLAG NO
[2025-01-10 11:20] LABS: Basophils Percent Auto 0.1 % (0-2); Hematocrit 41.5 % (37.0-47.0); Hemoglobin 14.1 g/dl (12.0-16.0); Imm Gran Abs Auto 0.05 X10*3/uL (0.00-0.03); Imm Gran Pct Auto 0.3 % (0.0-0.4); Lymphocytes Absolute Auto 0.9 X10*3/uL (1.2-4.9); Lymphocytes Percent Auto 5.4 % (20-40); Mean Corpuscular Hemoglobin 31.3 pg (27.0-33.0); Mean Platelet Volume 10.3 fL (9.4-12.3); Monocytes Absolute Auto 0.6 X10*3/uL (0.1-1.2); Monocytes Percent Auto 3.6 % (2-11); Neutrophils Absolute Auto 15.4 x10*3/uL (2.0-8.3); Neutrophils Percent Auto 90.6 % (45-73); Platelet Count 163 X10*3/uL (160-400); Red Blood Count 4.51 X10*6/uL (4.20-5.50); Red Cell Distribution Width 13.3 % (11.0-16.0); SCAN SMEAR FLAG 1
[2025-01-10] MEDS: Lactated Ringers 1,000 ML 999 ML IV (11:31)
--- NOTE | 2025-01-10 11:33 | PC.NURSE ---
patient remains hypotensive, skin noted to be less red/swollen. patient tolerating small sips of water. ED attending made aware of patient bp, LR started per JAN. patient family at bedside
[2025-01-10 11:56] LABS: Anion Gap 13 (12-20); Blood Urea Nitrogen 21 mg/dL (9-16); Calcium 8.4 mg/dL (8.4-10.2); Carbon Dioxide 22 mmol/L (22-29); Chloride 111 mmol/L (96-108); Creatinine Clr Calc Pharmacy 62.2; Estimated Glomerular Filt Rate > 60; Glucose Random 202 mg/dL (60-115); Potassium 3.6 mmol/L (3.3-5.1); Sodium 142 mmol/L (135-145)
[2025-01-10 13:01] LABS: C Reactive Protein 0.11 mg/dL (< or = 0.50)
--- NOTE | 2025-01-10 15:50 | PC.NURSE ---
attempting to titrate patient off epi gtt, now running at 0.2mcg/kg/min
[2025-01-10] MEDS: 0.9 % Sodium Chloride 1,000 ML 80 ML IVCONT (15:57)
[2025-01-10 17:34] LABS: Appearance Urine Clear; Color Urine Yellow; Glucose Urine UA >=1000 mg/dL (Negative); Leukocyte Esterase Urine Negative (Negative); Nitrite Urine Negative (Negative); PH 5.5 (5.0-9.0); Specific Gravity - Urine 1.015 (1.005-1.025); UMIC TRIGGER UACC YES; Urine Blood Negative (Negative); Urine Ketones Trace mg/dL (Negative); Urine Protein Trace mg/dL (Neg-Trace)
[2025-01-10 17:45] LABS: Bacteria Urine None Seen (None Seen); RBC Urine 0-2 /HPF (0-2); WBC Urine 0-5 /HPF (0-5)
[2025-01-10] MEDS: Heparin Sodium,Porcine 5,000 UNIT/ML VIAL 5000 UNIT SUBCUT (17:59)
[2025-01-10 18:06] LABS: Glucose, Whole Blood 348 mg/dL (60-115)
[2025-01-10 18:06] LABS: Glucose, Whole Blood 357 mg/dL (60-115)
[2025-01-10 18:06] LABS: Glucose, Whole Blood 420 mg/dL (60-115)
--- NOTE | 2025-01-10 18:33 | PC.NURSE ---
Patient arrived to ICU at 1653 for pressor support. Patient has no complaints, dinner ordered, epi gtt continued per JAN.
[2025-01-10 19:05] LABS: Glucose, Whole Blood 357 mg/dL (60-115)
[2025-01-10] MEDS: Insulin Lispro 100 UNIT/ML 3 ML VIAL SUBCUT (19:17)
--- NOTE | 2025-01-10 19:26 | PHA.MEDREC ---
Addendum entered by Rian Rivera [facility] 01/10/25 19:35: MED REC CHECKED BY [facility] Original Note: Pharmacy Consult ? Medication Reconciliation Pharmacy has completed the medication reconciliation. Spoke with patient to confirm medications through an senior actuarial analyst. She gets [facility] from [facility]. She was able to confirm names, as needed meds, inhalers, and OTC. Used claims to confirm frequencies. She confirmed use of eye drop. No recent claims for dicyclomine but she says she uses prn. She did not have any medications today.
--- NOTE | 2025-01-10 20:12 | P.HPCC_ITS ---
History of Present Illness Date of Service: 01/10/25 Attending physician on admission: Federico Davis Chief Complaint: Diffuse itching hives ?The patient is a 59-year-old female with a past medical history of fibromyalgia, constipation, GERD and delayed gastric emptying who presented to the emergency department with sudden development of diffuse itching hives.? Patient reported drinking a plan? based smoothie with suzie seeds, ? and later started developing nausea, diffuse itching hives and feeling airway tightening. ?On my assessment,? patient and son also reported patient does have a history of itching,? and ?funny feeling in her throat when he eats Poppy seeds?.? ?In the emergency department,? patient?s blood pressure systolic of 70s, tachycardic, and tachypneic.?ED course: Received? 2 L bolus, Solu-Medrol 125 mg, Benadryl 50 mg IV push, Pepcid 20 mg IV push, and 2 doses of 0.3 epinephrine IM. patient continued to have labile blood pressures and required initiation of epinephrine drip 59-year-old female with a past medical history of fibromyalgia, constipation, GERD and delayed gastric emptying? admitted to ICU for management of anaphylactic shock likely from suzie seeds Review of Systems 2 Review of Systems: Yes all other systems are reviewed and are negative PMFSH Past Medical History Medical History Fracture of proximal phalanx of right thumb Carpal tunnel syndrome of left wrist Distal radius fracture, left Asthma Hepatitis B Fibromyalgia Family History Family History Father Lung cancer Diabetes Hepatitis Brother Diabetes Lung cancer Sister Gastritis Surgical History Surgical History H/O breast surgery H/O reduction mammoplasty Hx of abdominoplasty (~2004) History of open reduction and internal fixation (ORIF) procedure (~02/2018) Hx of section (~1979) Hx of colonoscopy Social History Social History Household Members: Family Housing: House Do you presently have visiting nurse or other home services: No Alcohol intake: never Patient Tobacco Use Status: Never used Tobacco e-Cigarette/Vaping Use: Never Used Use of substances other than those prescribed or required for medical reasons: No Currently Displaying Signs/Symptoms of Drug Intoxication Withdrawal: No Have you been hit, kicked, punched, or otherwise hurt by someone within the past year? If so, by whom?: No Do you feel safe in your current relationship?: Yes Is there a partner from a previous relationship who is making you feel unsafe now?: No Are you made to feel afraid or neglected: Yes (Arguments with ) Spiritual Healthcare Practices: none per patient [employer] Healthcare Practices: Gnosticist Cultural Healthcare Practices: none per patient Advance Directives: Yes Advance Directives Information Provided: Yes Advance Directives on File: No Advance Directives Date on File: 01/10/25 Do you have a plan to hurt others: No Plan Recently lost weight without trying: No Eating poorly because of decreased appetite: No Nutrition Risks: No Nutritional Risk Patient : No : No Poor oral hygiene: No Meds Allergies Allergy/AdvReac Type Severity Reaction Status Date / Time Suzie seeds Allergy Anaphylaxis Uncoded 01/10/25 19:45 poppy seeds Allergy Itching Uncoded 01/10/25 19:46 Active Medications: Current Medications Heparin Sodium (Porcine) (Heparin Sodium,Porcine 5,000 Unit/Ml Vial) 5,000 unit SUBCUT Q8H [facility] Last Admin: 01/10/25 17:59 Dose: 5,000 unit Epinephrine 5 mg/ Sodium (Chloride) 255 mls @ 0 mls/hr IVCONT .Q0M [facility]; Protocol Last Admin: 01/10/25 16:30 Dose: 0.4 mcg/kg/min, 63.89 mls/hr Sodium Chloride (Ns) 1,000 mls @ 80 mls/hr IVCONT .[id number] [facility] Last Admin: 01/10/25 15:57 Dose: 80 mls/hr Home Medications ?Medication ?Instructions ?Recorded ?Confirmed ?Last Taken ?Type albuterol sulfate 90 mcg/actuation 2 puff inhalation Q6H PRN asthma 10/19/20 01/10/25 Unknown History aerosol inhaler amitriptyline 50 mg tablet 100 mg PO BEDTIME 10/19/20 01/10/25 Unknown History atorvastatin 40 mg tablet 40 mg PO DAILY 10/19/20 01/10/25 Unknown History bupropion HCl 300 mg 24 hr tablet, 300 mg PO QAM 10/19/20 01/10/25 Unknown History extended release montelukast 10 mg tablet 10 mg PO DAILY 10/19/20 01/10/25 Unknown History (Singvadimir) propranolol 80 mg capsule,24 80 mg PO DAILY 10/19/20 01/10/25 Unknown History hr,extended release sumatriptan succinate 100 mg tablet See Rx Instructions PO .COMPLEX 10/19/20 01/10/25 Unknown History hydroxyzine HCl 50 mg tablet 50 mg PO BEDTIME 06/16/21 01/10/25 Unknown History melatonin 3 mg tablet 3 mg PO BEDTIME PRN insomnia 06/16/21 01/10/25 Unknown History prazosin 1 mg capsule 1 - 2 mg PO BEDTIME 06/16/21 01/10/25 Unknown History loratadine 10 mg tablet 10 mg PO DAILY 05/08/22 01/10/25 Unknown History topiramate 100 mg tablet 100 mg PO BID 05/08/22 01/10/25 Unknown History buspirone 15 mg tablet 15 mg PO QAM 05/30/22 01/10/25 Unknown History fluticasone propionate 50 1 spray intranasal QAM PRN Allergy 11/02/22 01/10/25 Unknown History mcg/actuation nasal Symptoms spray,suspension mometasone 200 mcg/actuation HFA 1 puff inhalation BID 01/22/24 01/10/25 Unknown History aerosol inhaler (Asmanex HFA) buspirone 15 mg tablet 30 mg PO BEDTIME 01/10/25 01/10/25 Unknown History gabapentin 400 mg capsule 400 mg PO TID 01/10/25 01/10/25 Unknown History lidocaine 4 % topical patch 1 patch topical DAILY PRN Back Pain 01/10/25 01/10/25 Unknown History metoclopramide HCl 10 mg tablet 10 mg PO QID PRN Abdominal Pain 01/10/25 01/10/25 Unknown History vjagaerd-csutwanqu-ngqksvam 3.5 1 drp ophthalmic (eye) QID 01/10/25 01/10/25 Unknown History mg/mL-10,000 unit/mL-0.1% eye drops simethicone 180 mg capsule 180 mg PO QID PRN gas or bloating 01/10/25 01/10/25 Unknown History Physical Exam 2 Vital Signs: Vital Signs: Last Vital Signs Temp 99.3 F 01/10/25 16:26 Pulse 72 01/10/25 19:00 Resp 15 01/10/25 19:00 BP 109/51 L 01/10/25 19:00 Pulse Ox 97 01/10/25 19:00 O2 Del Method Room Air 01/10/25 19:00 BMI result Body Mass Index 23.2 ?General:? Alert oriented x3 no acute distress.? Speaking full sentences.? Speech is well articulated, thought process is coherent.? Following all commands. ?HEENT:? Head is normocephalic, atraumatic, pupils equal round reactive to light accommodation bilaterally.? Extraocular movements appear intact.? Buccal mucosa is moist, Neck is supple without lymphadenopathy. ?Cardiac:? Clear S1-S2, no murmurs rubs or gallops. ?Pulmonary:? Clear to auscultation, no wheezes, rales or rhonchi. ?Abdomen:? ?Abdomen soft, non-tender, non-distended. Normal bowel sounds. No pulsatile mass. No hepatosplenomegaly. ?Musculoskeletal:? Moving all 4 extremities upon request a major joints, there is no crepitus or tenderness.? The strength is 5/5 bilaterally and throughout all 4 extremities.? Gait not assessed at this point. ?Neurologic:? cranial nerves 2-12 are grossly intact.? No focal deficits noted.Motor strength as above.?? ?Skin:? Intact, no lesions, edema, erythema, clubbing or cyanosis.? No ulcers. Vascular:? 2+ pulses upper and lower extremities distally.? Results Labs 01/11/25 05:31 01/11/25 05:31 Labs: Laboratory Results - last 24 hr 01/10/25 01/10/25 01/10/25 11:09 16:55 17:57 MCV 92.0 MCH 31.3 MCHC 34.0 RDW 13.3 Plt Count 163 MPV 10.3 Immature Gran % (Auto) 0.3 Neut % (Auto) 90.6 H Lymph % (Auto) 5.4 L [place] % (Auto) 3.6 Eos % (Auto) 0.0 Baso % (Auto) 0.1 Lymph # (Auto) 0.9 L [place] # (Auto) 0.6 Eos # (Auto) 0.0 Baso # (Auto) 0.0 Abs Immat Gran (auto) 0.05 H Absolute Neuts (auto) 15.4 H Absolute Nucleated RBC 0.000 Nucleated RBC % (auto) 0.0 Anion Gap 13 Estim Creat Clear Calc 62.2 Estimated GFR > 60 POC Glucose 420 H* Random Glucose 202 H Calcium 8.4 D C-Reactive Protein 0.11 Urine Color Yellow Urine Appearance Clear Urine pH 5.5 Ur Specific [place] 1.015 Urine Protein Trace Urine Glucose (UA) >=1000 H Urine Ketones Trace Urine Blood Negative Urine Nitrite Negative Ur Leukocyte Esterase Negative Urine RBC 0-2 Urine WBC 0-5 Ur Squamous Epith Cells 3-5 Urine Bacteria None Seen Hyaline Casts 3-5 01/10/25 01/10/25 01/10/25 17:59 18:01 19:01 MCV MCH MCHC RDW Plt Count MPV Immature Gran % (Auto) Neut % (Auto) Lymph % (Auto) [place] % (Auto) Eos % (Auto) Baso % (Auto) Lymph # (Auto) [place] # (Auto) Eos # (Auto) Baso # (Auto) Abs Immat Gran (auto) Absolute Neuts (auto) Absolute Nucleated RBC Nucleated RBC % (auto) Anion Gap Estim Creat Clear Calc Estimated GFR POC Glucose 348 H 357 H* 357 H* Random Glucose Calcium C-Reactive Protein Urine Color Urine Appearance Urine pH Ur Specific [place] Urine Protein Urine Glucose (UA) Urine Ketones Urine Blood Urine Nitrite Ur Leukocyte Esterase Urine RBC Urine WBC Ur Squamous Epith Cells Urine Bacteria Hyaline Casts Assessment and Plan (1) Anaphylactic shock: Status: Acute (2) Hyperglycemia: Status: Acute (3) Leukocytosis: Status: Acute Plan 59-year-old female with a past medical history of fibromyalgia, constipation, GERD and delayed gastric emptying? admitted to ICU for management of anaphylactic shock likely from suzie seeds Plan ?Anaphylactic shock:? patient presented with symptoms of anaphylactic shock,? reported having a smoothie with suzie seeds which is a new food for her.? Patient received Solu-Medrol, Pepcid,? Benadryl and IM epinephrine in the emergency department.? Now on epinephrine drip,? due to? profound hypotension. ? Wean down vasopressors as tolerated. Cont fluids? ? Hyperglycemia:? patient does not have a diagnosis of diabetes,? received glucocorticoid steroids,? this is likely the cause of hyperglycemia.? We will give a dose of lispro,? but will also get a A1c tomorrow morning to rule out new? diabetes diagnosis ? Leukocytosis:? No evidence of sepsis,? hypotension and leukocytosis is related to anaphylactic shock.?? ?Diet:? ? advance as tolerated Prophylaxis:? subcu heparin,? CODE:? Full code Critical care time:? x60 minutes of critical care time Case discussed with attending Ryan
[2025-01-11] VITALS (36 sets, daily range): BP systolic 87–146; BP diastolic 36–64; PULSE 49–79; RESP 12–26; TEMP 36.1–36.4; O2SAT 92–100; BMI 23.2
[2025-01-11] MEDS: Heparin Sodium,Porcine 5,000 UNIT/ML VIAL 5000 UNIT SUBCUT ×4 (00:23→23:05)
[2025-01-11] MEDS: 0.9 % Sodium Chloride 1,000 ML 80 ML IVCONT (03:31)
[2025-01-11 06:34] LABS: MANUAL DIFF FLAG NO
[2025-01-11 06:38] LABS: Basophils Percent Auto 0.1 % (0-2); Eosinophils Absolute Auto 0.1 X10*3/uL (0.0-0.4); Eosinophils Percent Auto 0.7 % (0-4); Hematocrit 34.1 % (37.0-47.0); Hemoglobin 11.4 g/dl (12.0-16.0); Imm Gran Pct Auto 0.7 % (0.0-0.4); Lymphocytes Absolute Auto 1.2 X10*3/uL (1.2-4.9); Lymphocytes Percent Auto 7.8 % (20-40); Mean Corpuscular HGB Conc 33.4 g/dl (31.0-35.0); Mean Corpuscular Hemoglobin 30.8 pg (27.0-33.0); Mean Corpuscular Volume 92.2 fL (80.0-98.0); Mean Platelet Volume 10.5 fL (9.4-12.3); Monocytes Percent Auto 6.6 % (2-11); Neutrophils Absolute Auto 12.6 x10*3/uL (2.0-8.3); Neutrophils Percent Auto 84.1 % (45-73); Platelet Count 177 X10*3/uL (160-400); White Blood Count 14.9 X10*3/uL (4.8-10.8)
[2025-01-11 06:56] LABS: Albumin Level 3.2 g/dL (3.5-5.0); Anion Gap 10 (12-20); Blood Urea Nitrogen 19 mg/dL (9-16); Calcium 8.2 mg/dL (8.4-10.2); Carbon Dioxide 22 mmol/L (22-29); Chloride 114 mmol/L (96-108); Creatinine Clr Calc Pharmacy 58.1; Estimated Glomerular Filt Rate > 60; Glucose Random 174 mg/dL (60-115); Magnesium 1.9 mg/dL (1.6-2.6); Phosphorus 2.4 mg/dL (2.7-4.5); Potassium 3.8 mmol/L (3.3-5.1); Sodium 142 mmol/L (135-145)
[2025-01-11] MEDS: Lidocaine 4 % Patch ADH..PATCH 2 PATCH TRANSDERMA (07:44)
[2025-01-11 07:51] LABS: Glucose, Whole Blood 108 mg/dL (60-115)
[2025-01-11 07:58] LABS: Estimated Average Glucose 105 mg/dL; Hemoglobin A1C 101.9585 umol/L; Hemoglobin A1c % 5.3 % (<6.0); Total Hemoglobin (HGBA1C) 2998.7191 umol/L
[2025-01-11] MEDS: Potassium Phosphate/NS 15 MMOL/250 ML PLAST..BAG 62.5 MMOL IV (08:14)
--- NOTE | 2025-01-11 09:56 | PM.CCPN ---
Subjective Subjective Date of Service: 01/11/25 Interval History: 59-year-old lady with underlying history hepatitis-C, fibromyalgia, occurred admitted on 01/10/2025 was not anaphylaxis due to suzie seeds ingestion with good response to epinephrine injections, however still requiring epinephrine drip. No events overnight. Critical Care Time (minutes): 30 Physical Exam Vital Signs: Vital Signs: Last Vital Signs Temp 97.2 F 01/11/25 08:00 Pulse 71 01/11/25 09:10 Resp 12 01/11/25 09:00 BP 133/56 L 01/11/25 09:10 Pulse Ox 100 01/11/25 09:00 O2 Del Method Room Air 01/11/25 09:00 BMI result Body Mass Index 23.2 Const: General: no acute distress and alert Nutritional Appearance: not obese Orientation/consciousness: Other orientation findings ( oriented) HEENT: Head: Yes atraumatic Eyes: General: appearance normal, both eyes and all related structures Sclerae: sclerae normal EOM: EOMs intact bilaterally Neck: Neck: Yes supple Lymphatic: no lymphadenopathy noted Resp: Effort & Inspection: normal respiratory effort and no use of accessory muscles Auscultation: clear to auscultation bilaterally Cardio: Rate: regular rate Rhythm: regular rhythm Heart sounds: no gallops, no murmurs and no rubs Skin: General skin exam: other ( warm) Extrem: General: No clubbing, No cyanosis and No edema Objective Data Labs 01/11/25 05:31 01/11/25 05:31 Labs: Laboratory Results - last 24 hr 01/10/25 01/10/25 01/10/25 11:09 16:55 17:57 WBC 17.0 H RBC 4.51 Hgb 14.1 Hct 41.5 MCV 92.0 MCH 31.3 MCHC 34.0 RDW 13.3 Plt Count 163 MPV 10.3 Immature Gran % (Auto) 0.3 Neut % (Auto) 90.6 H Lymph % (Auto) 5.4 L [place] % (Auto) 3.6 Eos % (Auto) 0.0 Baso % (Auto) 0.1 Lymph # (Auto) 0.9 L [place] # (Auto) 0.6 Eos # (Auto) 0.0 Baso # (Auto) 0.0 Abs Immat Gran (auto) 0.05 H Absolute Neuts (auto) 15.4 H Absolute Nucleated RBC 0.000 Nucleated RBC % (auto) 0.0 Sodium 142 Potassium 3.6 Chloride 111 H Carbon Dioxide 22 Anion Gap 13 BUN 21 H Creatinine 0.71 Estim Creat Clear Calc 62.2 Estimated GFR > 60 POC Glucose 420 H* Random Glucose 202 H Estimat Average Glucose Hemoglobin A1c % Calcium 8.4 D Phosphorus Magnesium C-Reactive Protein 0.11 Albumin Urine Color Yellow Urine Appearance Clear Urine pH 5.5 Ur Specific [place] 1.015 Urine Protein Trace Urine Glucose (UA) >=1000 H Urine Ketones Trace Urine Blood Negative Urine Nitrite Negative Ur Leukocyte Esterase Negative Urine RBC 0-2 Urine WBC 0-5 Ur Squamous Epith Cells 3-5 Urine Bacteria None Seen Hyaline Casts 3-5 01/10/25 01/10/25 01/10/25 17:59 18:01 19:01 WBC RBC Hgb Hct MCV MCH MCHC RDW Plt Count MPV Immature Gran % (Auto) Neut % (Auto) Lymph % (Auto) [place] % (Auto) Eos % (Auto) Baso % (Auto) Lymph # (Auto) [place] # (Auto) Eos # (Auto) Baso # (Auto) Abs Immat Gran (auto) Absolute Neuts (auto) Absolute Nucleated RBC Nucleated RBC % (auto) Sodium Potassium Chloride Carbon Dioxide Anion Gap BUN Creatinine Estim Creat Clear Calc Estimated GFR POC Glucose 348 H 357 H* 357 H* Random Glucose Estimat Average Glucose Hemoglobin A1c % Calcium Phosphorus Magnesium C-Reactive Protein Albumin Urine Color Urine Appearance Urine pH Ur Specific [place] Urine Protein Urine Glucose (UA) Urine Ketones Urine Blood Urine Nitrite Ur Leukocyte Esterase Urine RBC Urine WBC Ur Squamous Epith Cells Urine Bacteria Hyaline Casts 01/11/25 01/11/25 01/11/25 05:31 05:32 07:48 WBC 14.9 H RBC 3.70 L Hgb 11.4 L Hct 34.1 L MCV 92.2 MCH 30.8 MCHC 33.4 RDW 14.0 Plt Count 177 MPV 10.5 Immature Gran % (Auto) 0.7 H Neut % (Auto) 84.1 H Lymph % (Auto) 7.8 L [place] % (Auto) 6.6 Eos % (Auto) 0.7 Baso % (Auto) 0.1 Lymph # (Auto) 1.2 [place] # (Auto) 1.0 Eos # (Auto) 0.1 Baso # (Auto) 0.0 Abs Immat Gran (auto) 0.10 H Absolute Neuts (auto) 12.6 H Absolute Nucleated RBC 0.000 Nucleated RBC % (auto) 0.0 Sodium 142 Potassium 3.8 Chloride 114 H Carbon Dioxide 22 Anion Gap 10 L BUN 19 H Creatinine 0.76 Estim Creat Clear Calc 58.1 Estimated GFR > 60 POC Glucose 108 Random Glucose 174 H Estimat Average Glucose 105 Hemoglobin A1c % 5.3 Calcium 8.2 L Phosphorus 2.4 L Magnesium 1.9 C-Reactive Protein Albumin 3.2 L Urine Color Urine Appearance Urine pH Ur Specific [place] Urine Protein Urine Glucose (UA) Urine Ketones Urine Blood Urine Nitrite Ur Leukocyte Esterase Urine RBC Urine WBC Ur Squamous Epith Cells Urine Bacteria Hyaline Casts Progress Note: A&P Assessment and plan (1) Anaphylactic shock: Status: Acute Plan Assessment: 59-year-old lady admitted with anaphylactic shock secondary to suzie seeds ingestion Plan: Neuro: No acute issues. Cardiac: Anaphylactic shock, continue to titrate off epinephrine drip as tolerated. Pulmonary: No acute issues. Renal: No acute issues. Endo: No acute issues. GI: No acute issues. ID: No acute issues Heme/Onc: No acute issues. Psych: No acute issues. Miscellaneous: No acute issues. Prophylaxis: Heparin Diet: Regular Critical care time spent: 30 minutes Quality Stroke Does the patient have a stroke diagnosis?: No VTE Prior VTE?: No VTE Risk Level:: Medical - moderate - high VTE Device Contraindication: Treatment Not Indicated VTE Drug Contraindication: N/A - Med Ordered
[2025-01-11] MEDS: Acetaminophen 325 MG TABLET 650 MG PO (12:13)
--- NOTE | 2025-01-11 15:07 | MHC.CM.PN ---
Attempted to meet with patient in regards to discharge planning. Nursing care currently being provided. Spoke with patient's son, Benedict. Patient lives with spouse and Benedict, ambulates independently and had no services prior to coming to the hospital. PCP verified. Benedict states patient has a HCP. Believes his brother, Marcus has a copy. IMM explained and signed. No services anticipated to be needed at d/c. Family will transport when medically stable. Continue to monitor for d/c needs.
--- NOTE | 2025-01-11 17:17 | PC.NURSE ---
Assumed care at 0700. Epinephrine gtt titrated per MAR. Pt c/o back pain- lidocaine patches applied and PRN tylenol given per MAR. Pt. up to recliner. Plan of care ongoing.
[2025-01-11] MEDS: Ibuprofen 800 MG TABLET PO (20:23)
[2025-01-12] VITALS (35 sets, daily range): BP systolic 78–138; BP diastolic 39–83; PULSE 50–84; RESP 12–23; TEMP 36.3–37.1; O2SAT 92–100; BMI 25.6
[2025-01-12 07:11] LABS: MANUAL DIFF FLAG NO
[2025-01-12 07:13] LABS: Venous Blood Gas Refer to POC result
[2025-01-12 07:13] LABS: VBG Base Excess 3.6 mmol/L; VBG HCO3 29 mmol/L (22-26); VBG pCO2 48 mmHg; VBG pH 7.38 (7.32-7.43); VBG pO2 40 mmHg
[2025-01-12 07:15] LABS: Basophils Percent Auto 0.3 % (0-2); Eosinophils Absolute Auto 0.2 X10*3/uL (0.0-0.4); Eosinophils Percent Auto 1.3 % (0-4); Hematocrit 36.2 % (37.0-47.0); Hemoglobin 12.1 g/dl (12.0-16.0); Imm Gran Abs Auto 0.04 X10*3/uL (0.00-0.03); Imm Gran Pct Auto 0.3 % (0.0-0.4); Lymphocytes Absolute Auto 1.4 X10*3/uL (1.2-4.9); Lymphocytes Percent Auto 12.2 % (20-40); Mean Corpuscular HGB Conc 33.4 g/dl (31.0-35.0); Mean Corpuscular Volume 92.8 fL (80.0-98.0); Monocytes Absolute Auto 0.5 X10*3/uL (0.1-1.2); Monocytes Percent Auto 4.6 % (2-11); Neutrophils Absolute Auto 9.3 x10*3/uL (2.0-8.3); Neutrophils Percent Auto 81.3 % (45-73); Platelet Count 150 X10*3/uL (160-400); Red Cell Distribution Width 14.2 % (11.0-16.0); White Blood Count 11.5 X10*3/uL (4.8-10.8)
[2025-01-12 07:35] LABS: Anion Gap 12 (12-20); Blood Urea Nitrogen 7 mg/dL (9-16); Calcium 8.7 mg/dL (8.4-10.2); Carbon Dioxide 27 mmol/L (22-29); Chloride 109 mmol/L (96-108); Creatinine Clr Calc Pharmacy 72.1; Estimated Glomerular Filt Rate > 60; Glucose Random 123 mg/dL (60-115); Magnesium 1.9 mg/dL (1.6-2.6); Phosphorus 2.7 mg/dL (2.7-4.5); Potassium 4.2 mmol/L (3.3-5.1); Sodium 144 mmol/L (135-145)
[2025-01-12] MEDS: 0.9 % Sodium Chloride Flush 3 ML SYRINGE IVFLUSH ×2 (09:00→16:16)
[2025-01-12] MEDS: Heparin Sodium,Porcine 5,000 UNIT/ML VIAL 5000 UNIT SUBCUT (09:00)
[2025-01-12] MEDS: Lidocaine 4 % Patch ADH..PATCH 2 PATCH TRANSDERMA (09:12)
[2025-01-12] MEDS: diphenhydrAMINE HCL 25 MG CAPSULE 50 MG PO ×2 (10:20→21:06)
[2025-01-12] MEDS: Midodrine HCl 10 MG TABLET PO ×3 (10:20→20:58)
--- NOTE | 2025-01-12 12:27 | P.PNCC_ITS ---
Subjective Subjective Date of Service: 01/12/25 Interval History: Continues to be needing epinephrine for vasopressor support this morning Otherwise she is asymptomatic Critical Care Time (minutes): 35 Physical Exam 2 Vital Signs: Vital Signs: Last Vital Signs Temp 97.3 F 01/12/25 08:00 Pulse 66 01/12/25 11:48 Resp 18 01/12/25 11:00 BP 114/55 L 01/12/25 11:48 Pulse Ox 96 01/12/25 11:00 O2 Del Method Room Air 01/12/25 11:00 BMI result Body Mass Index 25.6 General: not in any acute distress, sitting comfortably in the chair and talking Nutritional Appearance: well nourished and overweight Eyes: appearance normal, both eyes and all related structures; Alignment and Position: alignment normal and position normal Neck: No lymphadenopathy, no thyromegaly Resp: bilateral air entry equal, occasional added sounds present Cardio: Regular rate, regular rhythm; Heart sounds: S1 normal heart sound present and S2 normal heart sound present GI: soft, nontender, no guarding, no hepatosplenomegaly : bladder normal to inspection, bladder normal to palpation, no renal angle tenderness Skin: no rashes or lesions noted and elasticity normal Neuro: oriented to person, oriented to place, oriented to time and moves all extremities Objective Data Labs 01/12/25 07:05 01/12/25 07:05 Labs: Laboratory Results - last 24 hr 01/12/25 01/12/25 07:05 07:10 WBC 11.5 H RBC 3.90 L Hgb 12.1 Hct 36.2 L MCV 92.8 MCH 31.0 MCHC 33.4 RDW 14.2 Plt Count 150 L MPV 10.0 Immature Gran % (Auto) 0.3 Neut % (Auto) 81.3 H Lymph % (Auto) 12.2 L [place] % (Auto) 4.6 Eos % (Auto) 1.3 Baso % (Auto) 0.3 Lymph # (Auto) 1.4 [place] # (Auto) 0.5 Eos # (Auto) 0.2 Baso # (Auto) 0.0 Abs Immat Gran (auto) 0.04 H Absolute Neuts (auto) 9.3 H Absolute Nucleated RBC 0.000 Nucleated RBC % (auto) 0.0 VBG pH 7.38 VBG pCO2 48 VBG pO2 40 VBG HCO3 29 H VBG O2 Saturation 67.0 VBG Base Excess 3.6 Sodium 144 Potassium 4.2 Chloride 109 H Carbon Dioxide 27 Anion Gap 12 BUN 7 L Creatinine 0.64 Estim Creat Clear Calc 72.1 Estimated GFR > 60 Random Glucose 123 H Calcium 8.7 D Phosphorus 2.7 Magnesium 1.9 Progress Note: A&P Assessment and plan (1) Anaphylactic shock: Status: Acute (2) Anaphylaxis: Status: Acute (3) Hyperglycemia: Status: Acute (4) Bilateral carpal tunnel syndrome: Status: Acute (5) Polyarthralgia: Status: Acute (6) Diverticulitis: Status: Acute Plan Anaphylactic shock: Patient is an anaphylactic shock possibly secondary to Juan seeds Currently on epinephrine drip, titrate to keep map above 60 mm Hg We will add scheduled Benadryl until the shock improves We will add midodrine to assist weaning off the vasopressors Prophylaxis: Lovenox Quality Stroke Does the patient have a stroke diagnosis?: No VTE Prior VTE?: No VTE Risk Level:: Medical - moderate - high VTE Device Contraindication: Treatment Not Indicated VTE Drug Contraindication: N/A - Med Ordered
[2025-01-12] MEDS: 0.9 % Sodium Chloride 1,000 ML 999 ML IV (12:48)
--- NOTE | 2025-01-12 13:46 | MHC.CM.PN ---
Pt clinically improving: no s/sx anaphylaxis: may transfer to medical floor later today or tomorrow. Pt from home w/family support: no services anticipated: family to transport. CM to follow
[2025-01-12] MEDS: Enoxaparin Sodium 40 MG/0.4 ML SYRINGE SUBCUT (14:30)
[2025-01-12] MEDS: Acetaminophen 325 MG TABLET 650 MG PO ×2 (14:31→21:24)
[2025-01-12] MEDS: Atorvastatin Calcium 40 MG TABLET PO (15:45)
[2025-01-12] MEDS: Lidocaine 5 % Ointment 35 GM 1 APPL TOPICAL (15:45)
[2025-01-12] MEDS: Phentolamine Mesylate 5 MG VIAL IVPUSH (15:45)
[2025-01-12] MEDS: buPROPion HCl XL 300 MG TAB.ER.24H PO (15:45)
--- NOTE | 2025-01-12 19:14 | PC.NURSE ---
N-patient alert and oriented x4, anxious at times, easily redirected.? CV-Epi gtt titrated as per MAR, increased this afternoon for decreased MAP post bolus. Infiltrated Epi in left forearm, Noted redness to area, MD aware and treated as per MAR per provider, tolerated well and ordered lidocaine applied with DSD. Pulm- no issues? GI- No BM noted, tolerating diet well. - Patient voiding in commode up with stand by assist. Patient out of bed to chair most of day. Had an episode of not feeling well headache stated and noted increased HR, MD aware and Fentanyl ordered x, patient refused and requesting Tylenol instead, given with verbalized relief, 0/10 noted.
[2025-01-12] MEDS: Amitriptyline HCl 50 MG TABLET 100 MG PO (21:05)
[2025-01-12] MEDS: busPIRone HCl 10 MG TABLET 30 MG PO (21:05)
[2025-01-13] VITALS (21 sets, daily range): BP systolic 92–116; BP diastolic 47–66; PULSE 50–83; RESP 13–25; TEMP 36.2–36.7; O2SAT 94–99; BMI 25.6
[2025-01-13 04:21] LABS: VBG Base Excess 7.1 mmol/L; VBG HCO3 29 mmol/L (22-26); VBG pCO2 32 mmHg; VBG pH 7.55 (7.32-7.43); VBG pO2 59 mmHg
[2025-01-13 04:42] LABS: MANUAL DIFF FLAG NO
[2025-01-13 04:46] LABS: Basophils Percent Auto 0.5 % (0-2); Eosinophils Absolute Auto 0.2 X10*3/uL (0.0-0.4); Eosinophils Percent Auto 3.3 % (0-4); Hematocrit 35.7 % (37.0-47.0); Hemoglobin 12.1 g/dl (12.0-16.0); Imm Gran Abs Auto 0.01 X10*3/uL (0.00-0.03); Imm Gran Pct Auto 0.2 % (0.0-0.4); Lymphocytes Absolute Auto 2.2 X10*3/uL (1.2-4.9); Mean Corpuscular HGB Conc 33.9 g/dl (31.0-35.0); Mean Corpuscular Hemoglobin 30.8 pg (27.0-33.0); Mean Corpuscular Volume 90.8 fL (80.0-98.0); Mean Platelet Volume 10.2 fL (9.4-12.3); Monocytes Absolute Auto 0.4 X10*3/uL (0.1-1.2); Monocytes Percent Auto 5.9 % (2-11); Neutrophils Absolute Auto 3.2 x10*3/uL (2.0-8.3); Neutrophils Percent Auto 54.1 % (45-73); Platelet Count 140 X10*3/uL (160-400); Red Blood Count 3.93 X10*6/uL (4.20-5.50); Red Cell Distribution Width 14.1 % (11.0-16.0)
[2025-01-13 05:19] LABS: Alanine Aminotransferase 64 U/L (0-31); Albumin Level 3.6 g/dL (3.5-5.0); Anion Gap 11 (12-20); Aspartate Amino Transferase 68 U/L (5-31); Bilirubin Total 0.5 mg/dL (0.0-1.0); Blood Urea Nitrogen 10 mg/dL (9-16); Calcium 8.8 mg/dL (8.4-10.2); Carbon Dioxide 28 mmol/L (22-29); Chloride 108 mmol/L (96-108); Creatinine Clr Calc Pharmacy 66.9; Estimated Glomerular Filt Rate > 60; Glucose Random 90 mg/dL (60-115); Potassium 4.1 mmol/L (3.3-5.1); Sodium 143 mmol/L (135-145); Total Protein 6.9 g/dL (6.5-8.0)
[2025-01-13 05:28] LABS: Alkaline Phosphatase 75 U/L (39-117)
[2025-01-13 05:32] LABS: Venous Blood Gas Refer to POC result
[2025-01-13] MEDS: 0.9 % Sodium Chloride Flush 3 ML SYRINGE IVFLUSH ×3 (08:34→23:37)
[2025-01-13] MEDS: Midodrine HCl 10 MG TABLET PO ×3 (08:35→20:27)
[2025-01-13] MEDS: Lidocaine 4 % Patch ADH..PATCH 2 PATCH TRANSDERMA (08:35)
[2025-01-13] MEDS: diphenhydrAMINE HCL 25 MG CAPSULE 50 MG PO ×3 (08:35→20:27)
[2025-01-13] MEDS: Acetaminophen 325 MG TABLET 650 MG PO ×2 (08:35→23:39)
[2025-01-13] MEDS: Atorvastatin Calcium 40 MG TABLET PO (08:35)
[2025-01-13] MEDS: buPROPion HCl XL 300 MG TAB.ER.24H PO (08:35)
--- NOTE | 2025-01-13 08:51 | P.PNCC_ITS ---
Subjective Subjective Date of Service: 01/13/25 Critical Care Time (minutes): 35 Comment: off epinephrine drip since last night Physical Exam 2 Vital Signs: Vital Signs: Last Vital Signs Temp 98.0 F 01/13/25 08:00 Pulse 80 01/13/25 08:00 Resp 25 H 01/13/25 08:00 BP 101/54 L 01/13/25 08:00 Pulse Ox 98 01/13/25 08:00 O2 Del Method Room Air 01/13/25 08:00 BMI result Body Mass Index 25.6 General: Not in acute distress, comfortable Nutritional Appearance: Normal weight and nourishment Eyes: appearance normal, both eyes and all related structures; Alignment and Position: alignment normal and position normal Neck: No lymphadenopathy, no thyromegaly Resp: bilateral air entry equal, occasional added sounds present Cardio: Regular rate, regular rhythm; Heart sounds: S1 normal heart sound present and S2 normal heart sound present GI: soft, nontender, no guarding, no hepatosplenomegaly : bladder normal to inspection, bladder normal to palpation, no renal angle tenderness Skin: no rashes or lesions noted and elasticity normal Neuro: oriented to person, oriented to place, oriented to time and moves all extremities Objective Data Labs 01/13/25 04:15 01/13/25 04:14 Labs: Laboratory Results - last 24 hr 01/13/25 01/13/25 01/13/25 04:14 04:15 04:17 WBC 6.0 RBC 3.93 L Hgb 12.1 Hct 35.7 L MCV 90.8 MCH 30.8 MCHC 33.9 RDW 14.1 Plt Count 140 L MPV 10.2 Immature Gran % (Auto) 0.2 Neut % (Auto) 54.1 Lymph % (Auto) 36.0 [place] % (Auto) 5.9 Eos % (Auto) 3.3 Baso % (Auto) 0.5 Lymph # (Auto) 2.2 [place] # (Auto) 0.4 Eos # (Auto) 0.2 Baso # (Auto) 0.0 Abs Immat Gran (auto) 0.01 Absolute Neuts (auto) 3.2 Absolute Nucleated RBC 0.000 Nucleated RBC % (auto) 0.0 VBG pH 7.55 H VBG pCO2 32 VBG pO2 59 VBG HCO3 29 H VBG O2 Saturation 92.0 VBG Base Excess 7.1 Sodium 143 Potassium 4.1 Chloride 108 Carbon Dioxide 28 Anion Gap 11 L BUN 10 Creatinine 0.69 Estim Creat Clear Calc 66.9 Estimated GFR > 60 Random Glucose 90 Calcium 8.8 Phosphorus 3.0 Magnesium 2.0 Total Bilirubin 0.5 AST 68 H ALT 64 H Alkaline Phosphatase 75 Total Protein 6.9 Albumin 3.6 Progress Note: A&P Assessment and plan (1) Anaphylactic shock: Status: Acute (2) GERD (gastroesophageal reflux disease): Status: Acute (3) Diverticulitis: Status: Acute Plan Anaphylactic shock: Anaphylactic shock possibly secondary to Juan seeds, off epinephrine drip since last night Continue scheduled Benadryl until the shock improves Continue midodrine to keep her off the vasopressors Had some extravasation of epinephrine into the forearm which was treated with subcutaneous injections of phentolamine and lidocaine patch Anxiety disorder: on home buspirone, bupropion and amitriptylline Prophylaxis: Lovenox will transfer her to floor Quality Stroke Does the patient have a stroke diagnosis?: No VTE Prior VTE?: No VTE Risk Level:: Medical - moderate - high VTE Device Contraindication: Treatment Not Indicated VTE Drug Contraindication: N/A - Med Ordered
[2025-01-13] MEDS: Enoxaparin Sodium 40 MG/0.4 ML SYRINGE SUBCUT (12:34)
--- NOTE | 2025-01-13 14:42 | PM.EVENT ---
Event Note Date of Service: 01/13/25 Event Note: ICU transfer for anaphylactic shock secondary to eating she was seeds. Noted to have profound hypotension and treated with pressors. Also noted to have hyperglycemia likely from steroids. BP stable. Tx to med tele Time Spent With Patient Time: Total time managing care of this patient today ____ minutes.
--- NOTE | 2025-01-13 18:59 | PC.NURSE ---
N-patient alert and oriented x4, ? headache this morning tylenol given with verbalized full relief.? CV-off pressors and BP maintaining MAP >65. Pulm- no issues? GI- No BM noted, tolerating diet well refused stool softener last night to encourage today if still inpatient. - Patient voiding in commode, up with stand by assist. Patient dangling legs most of morning, transferred to [facility] this afternoon.
[2025-01-13] MEDS: bisacodyL 5 MG TABLET.DR 10 MG PO (20:27)
[2025-01-13] MEDS: busPIRone HCl 10 MG TABLET 30 MG PO (20:28)
--- NOTE | 2025-01-13 22:26 | PC.NURSE ---
Assumed care at 1900, patient in the chair alert and oriented. VSS, RA sat's above 98% Patient able to ambulate with stand by assist. Voiding in the toilet, no BM. Patient took pills whole one at a time with water, patient refused Amitriptyline. No complaints.
[2025-01-14 04:00] VITALS: BP 92/51; PULSE 76; RESP 16; TEMP 36.6; O2SAT 96
[2025-01-14 06:00] VITALS: BMI 22.9
[2025-01-14 07:09] VITALS: BP 88/57; PULSE 63; RESP 16; TEMP 36.3; O2SAT 99
[2025-01-14] MEDS: Atorvastatin Calcium 40 MG TABLET PO (08:07)
[2025-01-14] MEDS: Midodrine HCl 10 MG TABLET PO ×3 (08:07→21:29)
[2025-01-14] MEDS: buPROPion HCl XL 300 MG TAB.ER.24H PO (08:07)
[2025-01-14] MEDS: diphenhydrAMINE HCL 25 MG CAPSULE 50 MG PO ×2 (08:07→21:30)
--- NOTE | 2025-01-14 08:26 | HO.PM.IMPN ---
Subjective Subjective Date of Service: 01/14/25 Interval History: Seen in follow up for anaphylaxis Interval history: This morning was feeling well, blood pressures soft but no hypotension. About 3 hours ago developed word finding difficulty and aphasia per patient and her son. Unsure of duration but now resolved. No weakness, paresethesias, facial droop. No history of CVA Review of Systems Review of Systems: Yes all other systems are reviewed and are negative Physical Exam Vital Signs: Vital Signs: Last Vital Signs Temp 97.4 F 01/14/25 07:09 Pulse 63 01/14/25 07:09 Resp 16 01/14/25 07:09 BP 88/57 L 01/14/25 07:09 Pulse Ox 99 01/14/25 07:09 O2 Del Method Room Air 01/14/25 07:09 BMI result Body Mass Index 22.9 Constitutional - Awake and Alert, No apparent distress Eyes - PERRLA, EOMI Cardiovascular - S1S2, RRR, No edema Respiratory - Normal lung expansion, Normal respiratory effort, No respiratory distress, CTA bilaterally Gastrointestinal - NT / ND; +BS; No rebound or guarding Extremities - no calf tenderness bilaterally, no swelling Skin - Warm/Dry Neurological - Alert & oriented x3, CN II-XII in tact, 5/5 strength BUE and BLE, speech clear and fluid Psychological - Appropriate affect Objective Data Active Medications Acetaminophen (Acetaminophen 325 Mg Tablet) 650 mg PO Q6H PRN PRN Reason: Pain, Mild (Pain Scale 1-3) Last Admin: 01/13/25 23:39 Dose: 650 mg Documented By: HANK Amitriptyline HCl (Amitriptyline Hcl 50 Mg Tablet) 100 mg PO BEDTIME [facility] Last Admin: 01/13/25 20:30 Dose: Not Given Documented By: LUZMA Non-Admin Reason: Patient Refused Atorvastatin Calcium (Atorvastatin Calcium 40 Mg Tablet) 40 mg PO DAILY [facility] Last Admin: 01/14/25 08:07 Dose: 40 mg Documented By: JUDY Bisacodyl (Bisacodyl 5 Mg Tablet.Dr) 10 mg PO BEDTIME [facility] Last Admin: 01/13/25 20:27 Dose: 10 mg Documented By: LUZMA Bupropion HCl (Bupropion Hcl Xl 300 Mg Tab.Er.24h) 300 mg PO DAILY [facility] Last Admin: 01/14/25 08:07 Dose: 300 mg Documented By: JUDY Buspirone HCl (Buspirone Hcl 10 Mg Tablet) 30 mg PO BEDTIME [facility] Last Admin: 01/13/25 20:28 Dose: 30 mg Documented By: DOBROEnrrique Diphenhydramine HCl (Diphenhydramine Hcl 25 Mg Capsule) 50 mg PO BID [facility] Last Admin: 01/14/25 08:07 Dose: 50 mg Documented By: JUDY Enoxaparin Sodium (Enoxaparin Sodium 40 Mg/0.4 Ml Syringe) 40 mg SUBCUT Q24H [facility] Last Admin: 01/13/25 12:34 Dose: 40 mg Documented By: MORENITA Lidocaine (Lidocaine 4 % Patch Adh..Patch) 2 patch TRANSDERMA DAILY [facility]; Protocol Last Admin: 01/14/25 08:05 Dose: Not Given Documented By: JUDY Non-Admin Reason: Patient Refused Midodrine (Midodrine Hcl 10 Mg Tablet) 10 mg PO TID [facility] Last Admin: 01/14/25 08:07 Dose: 10 mg Documented By: JUDY Sodium Chloride (0.9 % Sodium Chloride Flush 3 Ml Syringe) 3 ml IVFLUSH QSHIFT [facility] Last Admin: 01/13/25 23:37 Dose: 3 ml Documented By: COOK Labs 01/13/25 04:15 01/13/25 04:14 Assessment and Plan (1) Word finding difficulty: Status: Acute (2) Aphasia: Status: Acute Plan 59-year-old female presenting to the hospital with complaints of nausea, diffuse pruritus, hives, and feeling of airway tightening admitted to ICU due to anaphylactic shock suspected to be secondary to cheese seeds found to have profound hypotension requiring vasopressors transferred to med/tele on 01/13 # anaphylactic shock -suspected to be secondary to she has seeds in a protein powder -treated in ICU with IV Solu-Medrol, Benadryl, Pepcid, and epinephrine. Due to labile blood pressure was initiated on epinephrine drip. Midodrine added and was Successfully weaned and transferred to [facility] tele on 01/13 -cardiac monitoring -midodrine 10 mg -close monitoring of blood pressure # word-finding difficulty/aphasia-concern for TIA -symptoms resolved at this time -head ct and cta head/neck ordered -disaster recovery coordinator notified -ASA 325 mg ordered for now. Continue 81 mg daily -lipid panel, high-dose statin -PT/OT evaluation -echo and MRI pending neuro evaluation -neuro checks -neurology consult -monitor on telemetry #mood disorder -continue home meds #HLD -statin DVT prophylaxis Lovenox Full code Patient requires ongoing inpatient stay for vital signs monitoring due to labile blood pressure as well as further evaluation and management of stroke-like symptoms requiring further imaging and expert consultation Quality Stroke Does the patient have a stroke diagnosis?: No VTE Prior VTE?: No VTE Risk Level:: Medical - moderate - high VTE Device Contraindication: Treatment Not Indicated VTE Drug Contraindication: N/A - Med Ordered
[2025-01-14] MEDS: 0.9 % Sodium Chloride Flush 3 ML SYRINGE IVFLUSH ×2 (08:30→16:47)
[2025-01-14 11:24] VITALS: BP 103/57; PULSE 73; RESP 16; TEMP 36.4; O2SAT 98
[2025-01-14 14:20] VITALS: BP 98/50
--- NOTE | 2025-01-14 14:46 | MHC.CM.PN ---
EMR reviewed and per MD rounds, pt is not medically cleared for discharge at this time.
[2025-01-14] MEDS: Enoxaparin Sodium 40 MG/0.4 ML SYRINGE SUBCUT (14:52)
--- NOTE | 2025-01-14 15:34 | PC.NURSE ---
at 1345 Patient's family member reported noticing speech to be slurred and having difficulty word finding. Patient reports noticing a change in speech around breakfast time . No deficits noticed by this RN during my shift. PA notified and at bedside to evaluate. Neuros intact, patient alert and oriented. Denies any pain. BP: 98/50, NSR on tele, HR 60. Patient passed bedside swallow evaluation. New orders for STAT head ct ordered, q 4 neuro checks, and aspirin.
--- NOTE | 2025-01-14 15:55 | MHC.STROKE ---
Notified by Rossi TORRES that patient/family reported difficulty word finding and aphasia earlier today Timeline not exact. Pt and family report that they noticed this after breakfast. RN providing care to the patient did not notice any difficulty with her speech and has utilized the fiberglass pipe covering supervisor during the day as well. Stroke Alert called by Rossi TORRES Pt brought to CT by this RN. Rope Making Machine Operator utilized to obtain details from earlier today and to obtain consent for CT injection Pt with no complaints at this time. Alert, oriented x 4. Speaking clearly. No deficits appreciated. Ambulated to bathroom. Stroke Education provided to patient and to family in the room. All questions answered. Risk factors discussed including medical history, medications, activity, diet, and social hx. Will continue to assist as needed.
[2025-01-14] MEDS: iohexoL 350 MG/ML 100 ML INFUS..BTL 70 ML IV (15:59)
[2025-01-14] MEDS: Aspirin 325 MG TABLET PO (16:47)
[2025-01-14 20:00] VITALS: BP 96/49; PULSE 72; RESP 20; TEMP 36.7; O2SAT 98
[2025-01-14] MEDS: busPIRone HCl 10 MG TABLET 30 MG PO (21:29)
[2025-01-14] MEDS: bisacodyL 5 MG TABLET.DR 10 MG PO (21:30)
[2025-01-14] MEDS: Amitriptyline HCl 50 MG TABLET 100 MG PO (21:32)
[2025-01-15] VITALS: BP 99/52; PULSE 64; RESP 20; TEMP 36.7; O2SAT 96
[2025-01-15] MEDS: 0.9 % Sodium Chloride Flush 3 ML SYRINGE IVFLUSH ×2 (00:26→09:00)
[2025-01-15 03:46] VITALS: BP 99/51; PULSE 62; RESP 20; TEMP 36.3; O2SAT 98
[2025-01-15 06:00] VITALS: BMI 22.9
[2025-01-15 07:26] LABS: Cholesterol 213 mg/dL (<200); HDL Cholesterol 96 mg/dL (>40); LDL Cholesterol Calculated 104 mg/dL (<100); Triglycerides 69 mg/dL (<150)
[2025-01-15 07:37] VITALS: BP 105/62; PULSE 68; RESP 16; TEMP 36; O2SAT 100
[2025-01-15] MEDS: Atorvastatin Calcium 40 MG TABLET PO (08:57)
[2025-01-15] MEDS: Aspirin Enteric Coated 81 MG TABLET.DR PO (08:57)
[2025-01-15] MEDS: diphenhydrAMINE HCL 25 MG CAPSULE 50 MG PO (08:57)
[2025-01-15] MEDS: buPROPion HCl XL 300 MG TAB.ER.24H PO (08:57)
[2025-01-15] MEDS: Midodrine HCl 10 MG TABLET PO ×2 (08:58→13:41)
[2025-01-15 11:19] VITALS: BP 125/64; PULSE 70; RESP 16; TEMP 36.2; O2SAT 96
--- NOTE | 2025-01-15 12:19 | PM.NEUROCN ---
History of Present Illness Data of Consult Service Date: 01/15/25 Primary Care Provider: Maryana Winkler MD [facility] Reason for consult: Word-finding difficulty 59 years old woman who was admitted yesterday for possible anaphylactic reaction when somebody noted that she was having word-finding difficulties prompting workup and this consultation. Patient said that her blood pressure was low. She was not known to have low blood pressure. I would noted that she was taking 200 mg of topiramate and amitriptyline. Her head CT and MRI did not reveal any acute abnormality. Review of Systems Review of Systems: No recent cold or flu-like PMFSH Past Medical History Medical History Fracture of proximal phalanx of right thumb Carpal tunnel syndrome of left wrist Distal radius fracture, left Asthma Hepatitis B Fibromyalgia Family History Family History Father Lung cancer Diabetes Hepatitis Brother Diabetes Lung cancer Sister Gastritis Surgical History Surgical History H/O breast surgery H/O reduction mammoplasty Hx of abdominoplasty (~2004) History of open reduction and internal fixation (ORIF) procedure (~02/2018) Hx of section (~1979) Hx of colonoscopy Social History Social History Household Members: Family Housing: House Do you presently have visiting nurse or other home services: No Alcohol intake: never Patient Tobacco Use Status: Never used Tobacco e-Cigarette/Vaping Use: Never Used Use of substances other than those prescribed or required for medical reasons: No Currently Displaying Signs/Symptoms of Drug Intoxication Withdrawal: No Have you been hit, kicked, punched, or otherwise hurt by someone within the past year? If so, by whom?: No Do you feel safe in your current relationship?: Yes Is there a partner from a previous relationship who is making you feel unsafe now?: No Are you made to feel afraid or neglected: Yes (Arguments with ) Spiritual Healthcare Practices: none per patient Pentecostalism Healthcare Practices: Alevism Cultural Healthcare Practices: none per patient Advance Directives: Yes Advance Directives Information Provided: Yes Advance Directives on File: No Advance Directives Date on File: 01/10/25 Do you have a plan to hurt others: No Plan Recently lost weight without trying: No Eating poorly because of decreased appetite: No Nutrition Risks: No Nutritional Risk Patient : No : No Poor oral hygiene: No service: No Meds Allergies Allergy/AdvReac Type Severity Reaction Status Date / Time Juan seeds Allergy Anaphylaxis Uncoded 01/10/25 19:45 poppy seeds Allergy Itching Uncoded 01/10/25 19:46 Active Medications: Current Medications Acetaminophen (Acetaminophen 325 Mg Tablet) 650 mg PO Q6H PRN PRN Reason: Pain, Mild (Pain Scale 1-3) Last Admin: 01/13/25 23:39 Dose: 650 mg Amitriptyline HCl (Amitriptyline Hcl 50 Mg Tablet) 100 mg PO BEDTIME [facility] Last Admin: 01/14/25 21:32 Dose: 50 mg Aspirin (Aspirin Enteric Coated 81 Mg Tablet.) 81 mg PO DAILY [facility] Last Admin: 01/15/25 08:57 Dose: 81 mg Atorvastatin Calcium (Atorvastatin Calcium 40 Mg Tablet) 40 mg PO DAILY [facility] Last Admin: 01/15/25 08:57 Dose: 40 mg Bisacodyl (Bisacodyl 5 Mg Tablet.) 10 mg PO BEDTIME [facility] Last Admin: 01/14/25 21:30 Dose: 10 mg Bupropion HCl (Bupropion Hcl Xl 300 Mg Tab.Er.24h) 300 mg PO DAILY [facility] Last Admin: 01/15/25 08:57 Dose: 300 mg Buspirone HCl (Buspirone Hcl 10 Mg Tablet) 30 mg PO BEDTIME [facility] Last Admin: 01/14/25 21:29 Dose: 30 mg Diphenhydramine HCl (Diphenhydramine Hcl 25 Mg Capsule) 50 mg PO BID [facility] Last Admin: 01/15/25 08:57 Dose: 50 mg Enoxaparin Sodium (Enoxaparin Sodium 40 Mg/0.4 Ml Syringe) 40 mg SUBCUT Q24H [facility] Last Admin: 01/14/25 14:52 Dose: 40 mg Lidocaine (Lidocaine 4 % Patch Adh..Patch) 2 patch TRANSDERMA DAILY [facility]; Protocol Last Admin: 01/15/25 08:57 Dose: Not Given Midodrine (Midodrine Hcl 10 Mg Tablet) 10 mg PO TID [facility] Last Admin: 01/15/25 08:58 Dose: 10 mg Sodium Chloride (0.9 % Sodium Chloride Flush 3 Ml Syringe) 3 ml IVFLUSH QSHIFT [facility] Last Admin: 01/15/25 09:00 Dose: 3 ml Home Medications ?Medication ?Instructions ?Recorded ?Confirmed ?Last Taken ?Type albuterol sulfate 90 mcg/actuation 2 puff inhalation Q6H PRN asthma 10/19/20 01/10/25 Unknown History aerosol inhaler amitriptyline 50 mg tablet 100 mg PO BEDTIME 10/19/20 01/10/25 Unknown History atorvastatin 40 mg tablet 40 mg PO DAILY 10/19/20 01/10/25 Unknown History bupropion HCl 300 mg 24 hr tablet, 300 mg PO QAM 10/19/20 01/10/25 Unknown History extended release montelukast 10 mg tablet 10 mg PO DAILY 10/19/20 01/10/25 Unknown History (Singulair) propranolol 80 mg capsule,24 80 mg PO DAILY 10/19/20 01/10/25 Unknown History hr,extended release sumatriptan succinate 100 mg tablet See Rx Instructions PO .COMPLEX 10/19/20 01/10/25 Unknown History hydroxyzine HCl 50 mg tablet 50 mg PO BEDTIME 06/16/21 01/10/25 Unknown History melatonin 3 mg tablet 3 mg PO BEDTIME PRN insomnia 06/16/21 01/10/25 Unknown History prazosin 1 mg capsule 1 - 2 mg PO BEDTIME 06/16/21 01/10/25 Unknown History loratadine 10 mg tablet 10 mg PO DAILY 05/08/22 01/10/25 Unknown History topiramate 100 mg tablet 100 mg PO BID 05/08/22 01/10/25 Unknown History buspirone 15 mg tablet 15 mg PO QAM 05/30/22 01/10/25 Unknown History fluticasone propionate 50 1 spray intranasal QAM PRN Allergy 11/02/22 01/10/25 Unknown History mcg/actuation nasal Symptoms spray,suspension mometasone 200 mcg/actuation HFA 1 puff inhalation BID 01/22/24 01/10/25 Unknown History aerosol inhaler (Asmanex HFA) buspirone 15 mg tablet 30 mg PO BEDTIME 01/10/25 01/10/25 Unknown History gabapentin 400 mg capsule 400 mg PO TID 01/10/25 01/10/25 Unknown History lidocaine 4 % topical patch 1 patch topical DAILY PRN Back Pain 01/10/25 01/10/25 Unknown History metoclopramide HCl 10 mg tablet 10 mg PO QID PRN Abdominal Pain 01/10/25 01/10/25 Unknown History [id number] 3.5 1 drp ophthalmic (eye) QID 01/10/25 01/10/25 Unknown History mg/mL-10,000 unit/mL-0.1% eye drops simethicone 180 mg capsule 180 mg PO QID PRN gas or bloating 01/10/25 01/10/25 Unknown History Physical Exam Vital Signs: Vital Signs: Last Vital Signs Temp 97.1 F 01/15/25 11:19 Pulse 70 01/15/25 11:19 Resp 16 01/15/25 11:19 BP 125/64 01/15/25 11:19 Pulse Ox 96 01/15/25 11:19 O2 Del Method Room Air 01/15/25 11:19 BMI result Body Mass Index 22.9 Neuro: Other: She is alert and awake with normal spontaneity of speech fluency comprehension and affect. She is able to repeat and name. Face is symmetrical. Visual delacruz are full. There is no focal arm or leg weakness. Speech is normal. Results Labs 01/13/25 04:15 01/13/25 04:14 Labs: Noncontrast head CT did not reveal any significant abnormality. MRI of brain revealed mild chronic microvascular ischemic changes. Assessment and Plan (1) Word finding difficulty: Status: Acute 59 years old woman who was noted to have word-finding difficulty while her blood pressure was quite low and she was on 200 mg of topiramate and amitriptyline. This symptom was typical of topiramate. My recommendation is to adjust her blood pressure medicines to avoid hypotension, discontinue amitriptyline, and decreased dose of topiramate to about half. Procedures Date of Service Date of Service: 01/15/25
--- NOTE | 2025-01-15 12:38 | PM.DS ---
DS: Providers Provider Date of Service: 01/15/25 Date of admission: 01/10/25 15:58 Date of discharge: 01/15/25 Primary care physician: Maryana Winkler MD Consults: 01/14/25 15:28 Consult to Neurology Routine Consulting Provider: Lacy Wakefield Reason for consultation: word finding difficult, aphasia Attending physician on discharge: Yunior Parks Discharging clinician: Whit Chun DS: Diagnosis Discharge Diagnosis (1) Word finding difficulty: Status: Acute DS: Summary Hospital Course Hospital Course: From H&P on the day of admission The patient is a 59-year-old female with a past medical history of fibromyalgia, constipation, GERD and delayed gastric emptying who presented to the emergency department with sudden development of diffuse itching hives.? Patient reported drinking a plan? based smoothie with suzie seeds, ? and later started developing nausea, diffuse itching hives and feeling airway tightening. ?On my assessment,? patient and son also reported patient does have a history of itching,? and ?funny feeling in her throat when he eats Poppy seeds?.? ?In the emergency department,? patient?s blood pressure systolic of 70s, tachycardic, and tachypneic.?ED course: Received? 2 L bolus, Solu-Medrol 125 mg, Benadryl 50 mg IV push, Pepcid 20 mg IV push, and 2 doses of 0.3 epinephrine IM. patient continued to have labile blood pressures and required initiation of epinephrine drip 59-year-old female with a past medical history of fibromyalgia, constipation, GERD and delayed gastric emptying? admitted to ICU for management of anaphylactic shock likely from suzie seeds anaphylactic shock suspected to be secondary to suzie seeds in a protein powder treated in ICU with IV Solu-Medrol, Benadryl, Pepcid, and epinephrine. Due to labile blood pressure was initiated on epinephrine drip. Midodrine added and was Successfully weaned and transferred to [facility] on 01/13. bp has remained stable on midodrine. word-finding difficulty/aphasia-concern for TIA head ct and cta head/neck ordered and negative. MRI negative. Seen by PT/OT no indication for ongoing services. Seen by neurology who thought medications could have been playing a role with her symptoms. Recommend to reduce topiramate by 50% and discontinue amitriptyline. Time Attestation Discharge Coordination Time (in mins): 36 Quality: Safe Use of Opioids Does Pt have an Active Cancer Diagnosis on the Problem List?: No Quality: Stroke Does the patient have a stroke diagnosis?: No Physical Exam Vital Signs: Vital Signs: Last Vital Signs Temp 97.1 F 01/15/25 11:19 Pulse 70 01/15/25 11:19 Resp 16 01/15/25 11:19 BP 125/64 01/15/25 11:19 Pulse Ox 96 01/15/25 11:19 O2 Del Method Room Air 01/15/25 11:19 BMI result Body Mass Index 22.9 Const: General: cooperative and comfortable Nutritional Appearance: average body habitus Orientation/consciousness: patient oriented x3 Cardio: Rate: regular rate Neuro: General: patient oriented x3, moves all extremities and CN's II-XI intact bilaterally DS: Data Data Completed and Pending Labs on day of discharge: Laboratory Results - last 24 hr 01/15/25 06:21 Triglycerides 69 Cholesterol 213 H LDL Cholesterol, Calc 104 H HDL Cholesterol 96 Discharge Plan Discharge Anticipated Discharge Date/Time: 01/15/25 13:11 Patient Disposition: Home, Self-Care Discharge Diagnosis: Anaphylactic shock Word-finding difficulty due to medication Referrals: Maryana Winkler MD [Primary Care Provider] - 1 Week Discharge Medications: New midodrine 10 mg Tablet 10 mg PO TID 90 Days Qty: 270 0RF Continued buspirone 15 mg tablet 15 mg PO QAM cholecalciferol (vitamin D3) [Vitamin D3] 50 mcg (2,000 unit) capsule 50 mcg PO QAM Qty: 30 1RF lidocaine 4 % Adhesive Patch,Medicated 1 patch TOPICAL DAILY PRN (Reason: Back Pain) neomycin-polymyxin B-dexameth 3.5mg/mL-10,000 unit/mL-0.1 % drops,suspension 1 drp ophthalmic (eye) QID Rx Instructions: both eyes buspirone 15 mg tablet 30 mg PO BEDTIME simethicone 180 mg capsule 180 mg PO QID PRN (Reason: gas or bloating) metoclopramide HCl 10 mg tablet 10 mg PO QID PRN (Reason: Abdominal Pain) albuterol sulfate 90 mcg/actuation HFA aerosol inhaler 2 puff inhalation Q6H PRN (Reason: asthma) sumatriptan succinate 100 mg tablet See Rx Instructions PO .COMPLEX Rx Instructions: take 1 tab at onset of headache; if no relief, may repeat 1 tab after at least 2 hrs; max = 2 tabs/24 hrs PO montelukast [Singulair] 10 mg tablet 10 mg PO DAILY bupropion HCl 300 mg tablet extended release 24 hr 300 mg PO QAM atorvastatin 40 mg tablet 40 mg PO DAILY prazosin 1 mg capsule 1 - 2 mg PO BEDTIME hydroxyzine HCl 50 mg tablet 50 mg PO BEDTIME melatonin 3 mg tablet 3 mg PO BEDTIME PRN (Reason: insomnia) loratadine 10 mg tablet 10 mg PO DAILY duloxetine 60 mg capsule,delayed release(DR/EC) 60 mg PO BID Qty: 180 1RF Asmanex HFA 200 mcg/actuation HFA aerosol inhaler 1 puff inhalation BID diclofenac sodium 1 % gel 2 g topical BID PRN (Reason: for pain) Qty: 100 0RF fluticasone propionate 50 mcg/actuation spray,suspension 1 spray intranasal QAM PRN (Reason: Allergy Symptoms) dicyclomine 10 mg capsule 10 mg PO TID PRN (Reason: abdominal pain) Qty: 90 3RF bisacodyl [Dulcolax (bisacodyl)] 5 mg tablet,delayed release (DR/EC) 10 mg PO BEDTIME 90 Days Qty: 180 1RF Dexilant 60 mg capsule,biphase delayed releas 60 mg PO BEDTIME Qty: 30 6RF docusate sodium 100 mg capsule 200 mg PO BEDTIME PRN (Reason: for constipation) Qty: 60 6RF Linzess 290 mcg capsule 290 mcg PO QAM Qty: 30 6RF Changed amitriptyline 50 mg tablet 50 mg PO BEDTIME Qty: 1 0RF topiramate 100 mg tablet 50 mg PO BID Qty: 1 0RF gabapentin 400 mg capsule 200 mg PO TID Qty: 1 0RF Discontinued acetaminophen [Tylenol Extra Strength] 500 mg tablet 1,000 mg PO QID PRN (Reason: fever or pain) Qty: 14 0RF propranolol 80 mg capsule,extended release 24 hr 80 mg PO DAILY No Action (DME) Wrist Support One Size Misc See Rx Instructions .Route Qty: 2 0RF Rx Instructions: As directed (DME) cock up splint See Rx Instructions .Route .MEDSUPPLY Qty: 2 0RF Rx Instructions: wear on each wrist at night. Discharge Orders: Discharge Order (Routine); Ordered 01/15/25 Ordered By: Whit Chun Activity on Discharge: As tolerated Stand Alone Forms: Patient Portal Discharge page Print Language: Khmer Care Plan Goals: see below Health Concerns: Anaphylaxis possibly due to Suzie seeds transient word finding difficulty - possibly due to medications; stroke ruled out. Neurology recommended adjustments to medications as below Plan of Treatment: Cut amitriptyline in half the next 3 days and then discontinue Decrease dose of topiramate by half moving forward from 100 bid to 50 bid Gabapentin dose decreased to 200 mg TID call to schedule follow up appointment with PCP take midodrine as prescribed avoid suzie seeds moving forward Assessment: See discharge summary
[2025-01-15 13:41] VITALS: BP 125/64
[2025-01-15] MEDS: Enoxaparin Sodium 40 MG/0.4 ML SYRINGE SUBCUT (13:42)
--- NOTE | 2025-01-15 14:22 | MHC.CM.PN ---
Patient has been medically cleared for dc to home today, self care. CM met with Patient and family at bedside and addressed IMM with her (original was given to Patient and a copy has been placed on the chart).
== END 2025-01-15 14:25 | disposition home or self-care (01) | DRG 916 ==
LOC: HO.ED 16:01 → HO.EDOVER 16:05 → HO.ICU 17:00 → HO.IMC 01-13 12:20
PROVIDERS: Physician Assistant; Physician Assistant Medical; Registered Nurse Community Health; Admitting Provider Internal Medicine Pulmonary Disease; Emergency Provider Emergency Medicine; PCP Family Medicine; Visit Provider Physician Assistant Medical
DX: T78.05XA Anaphylactic reaction due to tree nuts and seeds, initial encounter (principal); R47.01 Aphasia; F41.9 Anxiety disorder, unspecified; K21.9 Gastro-esophageal reflux disease without esophagitis; E78.5 Hyperlipidemia, unspecified; T42.6X5A Adverse effect of other antiepileptic and sedative-hypnotic drugs, initial encounter; M79.7 Fibromyalgia; K30 Functional dyspepsia; Z86.19 Personal history of other infectious and parasitic diseases; Z79.899 Other long term (current) drug therapy
CPT/HCPCS: 36415; 70450; 70496; 70498; 70551; 80048; 80053; 80061; 81001; 82040; 82803; 82947; 83036; 83735; 84100; 85025; 86140; 97161; 97165; 99285; J0171; J1200; J1644; J1650; J2760; J2919; J7120; Q9967

== ENCOUNTER 2025-01-10 15:58 | Outpatient (BNV) | payer OTHER, SELFPAY | END 2025-01-14 15:42 | PROVIDERS: Admitting Provider Internal Medicine Pulmonary Disease; Emergency Provider Emergency Medicine; PCP Family Medicine; Visit Provider Radiology Diagnostic Radiology | DX: R47.01 Aphasia (principal) | CPT/HCPCS: 70450; 70496; 70498; 70551 ==

== ENCOUNTER → 2025-01-10 15:58 | Outpatient (BNV) | payer OTHER, SELFPAY | PROVIDERS: Admitting Provider Internal Medicine Pulmonary Disease; Emergency Provider Emergency Medicine; PCP Family Medicine; Visit Provider Psychiatry & Neurology Neurology | DX: R47.89 Other speech disturbances (principal) | CPT/HCPCS: 99222 ==

== ENCOUNTER → 2025-01-10 15:58 | Outpatient (BNV) | payer OTHER, SELFPAY | PROVIDERS: Admitting Provider Internal Medicine Pulmonary Disease; Emergency Provider Emergency Medicine; PCP Family Medicine; Visit Provider Internal Medicine Pulmonary Disease | DX: T78.2XXA Anaphylactic shock, unspecified, initial encounter (principal) | CPT/HCPCS: 99291 ==

== ENCOUNTER → 2025-01-10 15:58 | Outpatient (BNV) | payer OTHER, SELFPAY | PROVIDERS: Admitting Provider Internal Medicine Pulmonary Disease; Emergency Provider Emergency Medicine; PCP Family Medicine; Visit Provider Nurse Practitioner Acute Care | DX: R47.89 Other speech disturbances (principal); R47.01 Aphasia | CPT/HCPCS: 99232; 99239; 99499 ==

== ENCOUNTER → 2025-01-10 15:58 | Outpatient (BNV) | payer OTHER, SELFPAY | PROVIDERS: Admitting Provider Internal Medicine Pulmonary Disease; Emergency Provider Emergency Medicine; PCP Family Medicine; Visit Provider Registered Nurse Community Health | DX: T78.2XXA Anaphylactic shock, unspecified, initial encounter (principal); K21.9 Gastro-esophageal reflux disease without esophagitis; K57.92 Diverticulitis of intestine, part unspecified, without perforation or abscess without bleeding | CPT/HCPCS: 99291 ==

== ENCOUNTER 2025-01-29 08:23 | Outpatient (REF) | payer OTHER, SELFPAY ==
[2025-01-29 11:28] LABS: MANUAL DIFF FLAG NO
[2025-01-29 11:40] LABS: B Type Natriuretic Peptide 47 pg/mL (<100)
[2025-01-29 11:41] LABS: Basophils Absolute Auto 0.1 X10*3/uL (0.0-0.2); Basophils Percent Auto 0.8 % (0-2); Eosinophils Absolute Auto 0.1 X10*3/uL (0.0-0.4); Hematocrit 41.9 % (37.0-47.0); Imm Gran Abs Auto 0.02 X10*3/uL (0.00-0.03); Imm Gran Pct Auto 0.3 % (0.0-0.4); Lymphocytes Absolute Auto 1.5 X10*3/uL (1.2-4.9); Lymphocytes Percent Auto 25.3 % (20-40); Mean Corpuscular HGB Conc 33.4 g/dl (31.0-35.0); Mean Corpuscular Hemoglobin 30.7 pg (27.0-33.0); Mean Corpuscular Volume 91.9 fL (80.0-98.0); Mean Platelet Volume 10.3 fL (9.4-12.3); Monocytes Absolute Auto 0.4 X10*3/uL (0.1-1.2); Monocytes Percent Auto 7.2 % (2-11); Neutrophils Absolute Auto 3.9 x10*3/uL (2.0-8.3); Neutrophils Percent Auto 64.4 % (45-73); Platelet Count 222 X10*3/uL (160-400); Red Blood Count 4.56 X10*6/uL (4.20-5.50); Red Cell Distribution Width 13.5 % (11.0-16.0)
[2025-01-29 11:48] LABS: Estimated Average Glucose 108 mg/dL; Hemoglobin A1c % 5.4 % (<6.0)
== END 2025-01-29 08:24 | disposition home or self-care (01) ==
LOC: HO.HHCL 08:23
PROVIDERS: Visit Provider Nurse Practitioner Primary Care
DX: R06.09 Other forms of dyspnea (principal); R73.09 Other abnormal glucose
CPT/HCPCS: 36415; 83036; 83880; 85025

== ENCOUNTER 2025-02-04 17:10 | Emergency (ER) | payer OTHER, SELFPAY ==
[2025-02-04] VITALS (8 sets, daily range): BP systolic 92–126; BP diastolic 51–71; PULSE 68–80; RESP 14–19; TEMP 36.3–36.7; O2SAT 97–99; BMI 21.4
--- NOTE | ~2025-02-04 | XR_ITS ---
CLINICAL HISTORY: pain 2 views of the chest. Findings: Heart size is normal. There is no consolidation. No pleural effusion is seen. Impression: No acute abnormalities. This document has been electronically signed by: Levi Menezes MD on 02/04/2025 17:59:15
--- NOTE | 2025-02-04 17:11 | ED_ITS ---
HPI - General Adult General Chief complaint: Upper Respiratory Symptoms Stated complaint: sob Time Seen by Provider: 02/04/25 17:55 Source: patient Mode of arrival: ambulatory Limitations: no limitations History of Present Illness ED Provider: HPI narrative: Patient is 59 years old with past medical history of fibromyalgia GERD, anxiety, delayed gastric emptying your discharge from [facility] on 01/15 after anaphylaxis from Juan seeds comes here for increased shortness a breath since discharge although saturating 100% at room air feels weak has poor balance patient has had MRI and CTA scan of the head and neck was negative patient does admit increased anxiety Related Data Home Medications ?Medication ?Instructions ?Recorded ?Confirmed albuterol sulfate 90 mcg/actuation 2 puff inhalation Q6H PRN asthma 10/19/20 01/10/25 aerosol inhaler atorvastatin 40 mg tablet 40 mg PO DAILY 10/19/20 01/10/25 bupropion HCl 300 mg 24 hr tablet, 300 mg PO QAM 10/19/20 01/10/25 extended release montelukast 10 mg tablet 10 mg PO DAILY 10/19/20 01/10/25 (Singulair) sumatriptan succinate 100 mg tablet See Rx Instructions PO .COMPLEX 10/19/20 01/10/25 hydroxyzine HCl 50 mg tablet 50 mg PO BEDTIME 06/16/21 01/10/25 melatonin 3 mg tablet 3 mg PO BEDTIME PRN insomnia 06/16/21 01/10/25 prazosin 1 mg capsule 1 - 2 mg PO BEDTIME 06/16/21 01/10/25 loratadine 10 mg tablet 10 mg PO DAILY 05/08/22 01/10/25 buspirone 15 mg tablet 15 mg PO QAM 05/30/22 01/10/25 fluticasone propionate 50 1 spray intranasal QAM PRN Allergy 11/02/22 01/10/25 mcg/actuation nasal Symptoms spray,suspension mometasone 200 mcg/actuation HFA 1 puff inhalation BID 01/22/24 01/10/25 aerosol inhaler (Asmanex HFA) buspirone 15 mg tablet 30 mg PO BEDTIME 01/10/25 01/10/25 lidocaine 4 % topical patch 1 patch topical DAILY PRN Back Pain 01/10/25 01/10/25 metoclopramide HCl 10 mg tablet 10 mg PO QID PRN Abdominal Pain 01/10/25 01/10/25 [id number] 3.5 1 drp ophthalmic (eye) QID 01/10/25 01/10/25 mg/mL-10,000 unit/mL-0.1% eye drops simethicone 180 mg capsule 180 mg PO QID PRN gas or bloating 01/10/25 01/10/25 Previous Rx's ?Medication ?Instructions ?Recorded cock up splint #2 ea 05/30/22 arm brace (Wrist Support One Size) #2 ea 06/06/22 duloxetine 60 mg capsule,delayed 60 mg PO BID #180 caps 07/20/22 release diclofenac sodium 1 % topical gel 2 g topical BID PRN for pain #100 01/22/24 grams cholecalciferol (vitamin D3) 50 50 mcg PO QAM #30 caps 02/19/24 mcg (2,000 unit) capsule (Vitamin D3) dicyclomine 10 mg capsule 10 mg PO TID PRN abdominal pain 05/01/24 #90 caps dexlansoprazole 60 mg 60 mg PO BEDTIME #30 caps 08/20/24 capsule,biphase delayed release (Dexilant) docusate sodium 100 mg capsule 200 mg (2 x 100 mg) PO BEDTIME PRN 08/20/24 for constipation #60 caps linaclotide 290 mcg capsule 290 mcg PO QAM #30 caps 08/20/24 (Linzess) amitriptyline 50 mg tablet 50 mg PO BEDTIME #1 tab 01/15/25 gabapentin 400 mg capsule 200 mg (1/2 x 400 mg) PO TID #1 cap 01/15/25 midodrine 10 mg tablet 10 mg PO TID 90 days #270 tabs 01/15/25 topiramate 100 mg tablet 50 mg (1/2 x 100 mg) PO BID #1 tab 01/15/25 bisacodyl 5 mg tablet,delayed 10 mg (2 x 5 mg) PO BEDTIME #180 02/04/25 release tabs Allergies Allergy/AdvReac Type Severity Reaction Status Date / Time Juan seeds Allergy Anaphylaxis Uncoded 02/04/25 17:14 poppy seeds Allergy Itching Uncoded 02/04/25 17:14 Review of Systems 2 Review of Systems: Yes all other systems are reviewed and are negative PMFSH Past Medical History Medical History Diverticulitis Bilateral carpal tunnel syndrome Polyarthralgia GERD (gastroesophageal reflux disease) Fracture of proximal phalanx of right thumb Carpal tunnel syndrome of left wrist Distal radius fracture, left Asthma Hepatitis B Fibromyalgia Surgical History H/O breast surgery H/O reduction mammoplasty Hx of abdominoplasty (~2004) History of open reduction and internal fixation (ORIF) procedure (~02/2018) Hx of section (~1979) Hx of colonoscopy Family History Family History Father Lung cancer Diabetes Hepatitis Brother Diabetes Lung cancer Sister Gastritis Social History Social History Household Members: Family Housing: House Do you presently have visiting nurse or other home services: No Alcohol intake: never Patient Tobacco Use Status: Never used Tobacco Smoked in Last 30 Days: No e-Cigarette/Vaping Use: Never Used Use of substances other than those prescribed or required for medical reasons: No Advance Directives: Yes Advance Directives Information Provided: No Advance Directives on File: No Advance Directives Date on File: 01/10/25 Do you have a plan to hurt others: No Plan Patient : No service: No Physical Exam ED Vital Signs: Vital Signs - 24 hr 02/04/25 17:11 02/04/25 18:24 02/04/25 18:36 Temperature 98 F 98.1 F Pulse Rate 78 76 Respiratory Rate 19 14 Blood Pressure 126/65 111/63 Pulse Oximetry 98 97 99 Oxygen Delivery Method Room Air Room Air Room Air Large Bore Nasal Cannula 02/04/25 18:49 02/04/25 18:52 02/04/25 18:54 Temperature Pulse Rate 68 80 78 Respiratory Rate Blood Pressure 98/52 L 112/71 101/62 Pulse Oximetry Oxygen Delivery Method BMI result Body Mass Index 21.4 Appearance: Alert. Oriented X3. No acute distress. Anxious Eyes: PERRLA, No Nystagmus ENT: Pharynx normal. Oral Mucosa moist Neck: Normal inspection. Neck supple. CVS: Normal heart rate and rhythm. Pulses normal. Respiratory: No respiratory distress. Equal air entry bilateral, no wheezing/rales/rhonchi Abdomen: Soft and nontender. Bowel sounds are present, no mass palpable, no CVA tenderness Skin: Skin warm and dry. Normal skin color. Normal skin turgor. Extremities: No lower extremity edema. No calf tenderness Neuro: Oriented X 3. No motor deficit. No sensory deficit.No cerebellar signs , cranial nerves II-XII intact Course Course Course Narrative: RME, this is a rapid medical exam performed by Reji Osborn please refer to primary provider for complete H&P- 59-year-old female past medical history significant for GERD, delayed gastric emptying, recent admission for anaphylactic shock on 01/10/2025-01/15/2025. there was some concern for TIA during this admission. The patient's family reports that she has been complaining of shortness of breath ever since her discharge. she went to [facility] today and was referred to the ED. she complains of shortness a breath. In the ED her oxygen saturation is 100%, blood pressure is 126/65, heart rate of 77, respiratory rate of about 24. Plan for workup including labs,, chest x-ray, viral swabs Medications Administered Discontinued Medications Generic Name Dose Route Start Last Admin Trade Name Freq PRN Reason Stop Dose Admin Sodium Chloride 1,000 mls @ 999 mls/hr 02/04/25 18:42 02/04/25 19:52 Ns IV 02/04/25 19:42 Infused .Q1H1M ONE Infusion Lorazepam 1 mg 02/04/25 18:42 02/04/25 18:57 Lorazepam 2 Mg/Ml Vial IVPUSH 02/04/25 18:43 1 mg ONCE ONE Administration Medical Decision Making Medical Decision Making [facility] Narrative: Patient clinically seems like with anxiety workup is negative no objective shortness a breath noticed chest x-ray negative saturating 99% at room air orthostatic blood pressure was also normal patient received IV fluids and Ativan feeling much better will discharge patient home advised to continue hydroxyzine and other medication which she takes for anxiety Differential Diagnosis Differential Diagnoses: The differential diagnosis associated with the presentation includes Lab Data [facility] Lab Attestation statement: I reviewed the patient's lab results. 02/04/25 17:36 02/04/25 17:36 Labs: Lab Results 03/26/25 Range/Units 17:36 WBC 6.2 (4.8-10.8) X10*3/uL RBC 4.69 (4.20-5.50) X10*6/uL Hgb 14.3 (12.0-16.0) g/dl Hct 41.7 (37.0-47.0) % MCV 88.9 (80.0-98.0) fL MCH 30.5 (27.0-33.0) pg MCHC 34.3 (31.0-35.0) g/dl RDW 13.1 (11.0-16.0) % Plt Count 222 (160-400) X10*3/uL MPV 10.1 (9.4-12.3) fL Immature Gran % (Auto) 0.2 (0.0-0.4) % Neut % (Auto) 51.0 (45-73) % Lymph % (Auto) 37.3 (20-40) % [place] % (Auto) 7.1 (2-11) % Eos % (Auto) 3.4 (0-4) % Baso % (Auto) 1.0 (0-2) % Lymph # (Auto) 2.3 (1.2-4.9) X10*3/uL [place] # (Auto) 0.4 (0.1-1.2) X10*3/uL Eos # (Auto) 0.2 (0.0-0.4) X10*3/uL Baso # (Auto) 0.1 (0.0-0.2) X10*3/uL Abs Immat Gran (auto) 0.01 (0.00-0.03) X10*3/uL Absolute Neuts (auto) 3.2 (2.0-8.3) x10*3/uL Absolute Nucleated RBC 0.000 (0.0-0.012) X10*3/uL Nucleated RBC % (auto) 0.0 (0.0-0.2) /100WBC Sodium 139 (135-145) mmol/L Potassium 4.1 (3.3-5.1) mmol/L Chloride 104 (96-108) mmol/L Carbon Dioxide 26 (22-29) mmol/L Anion Gap 13 (12-20) BUN 15 (9-16) mg/dL Creatinine 0.74 (0.5-1.4) mg/dL Estim Creat Clear Calc 63.9 Estimated GFR > 60 Random Glucose 106 (60-115) mg/dL Calcium 9.6 D (8.4-10.2) mg/dL Total Bilirubin 0.3 (0.0-1.0) mg/dL AST 33 H (5-31) U/L ALT 32 H (0-31) U/L Alkaline Phosphatase 87 (39-117) U/L Troponin I High Sens < 2.7 (<3.5-17.0) ng/L B-Natriuretic Peptide 14 (<100) pg/mL Total Protein 8.1 H (6.5-8.0) g/dL Albumin 4.3 (3.5-5.0) g/dL Influenza Type A (PCR) NEGATIVE (Negative) Influenza Type B (PCR) NEGATIVE (Negative) RSV RNA Qual (PCR) NEGATIVE (Negative) SARS-CoV-2 RNA (RT-PCR) NEGATIVE (Negative) Independent Interpretation I performed an independent interpretation of an: EKG Interpretation: Normal sinus rhythm heart rate 81 beats per minute normal interval normal axis no acute ST-T no acute ischemia Radiology Impression Discussion of test interpretation with radiology: I have reviewed the radiologist's reading. Radiologist Impression: NAD Discharge Plan Discharge Clinical Impression: Anxiety Patient Disposition: Home, Self-Care Instructions: Anxiety (ED) Additional Instructions: Drink plenty of fluids Your blood workup and potassium is normal today Take medication for anxiety as prescribed by your PCP Follow with your PCP Prescriptions: No Action buspirone 15 mg tablet 15 mg PO QAM (DME) Wrist Support One Size Misc See Rx Instructions .Route Qty: 2 0RF Rx Instructions: As directed cholecalciferol (vitamin D3) [Vitamin D3] 50 mcg (2,000 unit) capsule 50 mcg PO QAM Qty: 30 1RF bisacodyl 5 mg tablet,delayed release (DR/EC) 10 mg PO BEDTIME Qty: 180 1RF lidocaine 4 % Adhesive Patch,Medicated 1 patch TOPICAL DAILY PRN (Reason: Back Pain) neomycin-polymyxin B-dexameth 3.5mg/mL-10,000 unit/mL-0.1 % drops,suspension 1 drp ophthalmic (eye) QID Rx Instructions: both eyes buspirone 15 mg tablet 30 mg PO BEDTIME simethicone 180 mg capsule 180 mg PO QID PRN (Reason: gas or bloating) metoclopramide HCl 10 mg tablet 10 mg PO QID PRN (Reason: Abdominal Pain) midodrine 10 mg Tablet 10 mg PO TID 90 Days Qty: 270 0RF amitriptyline 50 mg tablet 50 mg PO BEDTIME Qty: 1 0RF topiramate 100 mg tablet 50 mg PO BID Qty: 1 0RF gabapentin 400 mg capsule 200 mg PO TID Qty: 1 0RF albuterol sulfate 90 mcg/actuation HFA aerosol inhaler 2 puff inhalation Q6H PRN (Reason: asthma) sumatriptan succinate 100 mg tablet See Rx Instructions PO .COMPLEX Rx Instructions: take 1 tab at onset of headache; if no relief, may repeat 1 tab after at least 2 hrs; max = 2 tabs/24 hrs PO montelukast [Singulair] 10 mg tablet 10 mg PO DAILY bupropion HCl 300 mg tablet extended release 24 hr 300 mg PO QAM atorvastatin 40 mg tablet 40 mg PO DAILY prazosin 1 mg capsule 1 - 2 mg PO BEDTIME hydroxyzine HCl 50 mg tablet 50 mg PO BEDTIME melatonin 3 mg tablet 3 mg PO BEDTIME PRN (Reason: insomnia) (DME) cock up splint See Rx Instructions .Route .MEDSUPPLY Qty: 2 0RF Rx Instructions: wear on each wrist at night. loratadine 10 mg tablet 10 mg PO DAILY duloxetine 60 mg capsule,delayed release(DR/EC) 60 mg PO BID Qty: 180 1RF Asmanex HFA 200 mcg/actuation HFA aerosol inhaler 1 puff inhalation BID diclofenac sodium 1 % gel 2 g topical BID PRN (Reason: for pain) Qty: 100 0RF fluticasone propionate 50 mcg/actuation spray,suspension 1 spray intranasal QAM PRN (Reason: Allergy Symptoms) dicyclomine 10 mg capsule 10 mg PO TID PRN (Reason: abdominal pain) Qty: 90 3RF Dexilant 60 mg capsule,biphase delayed releas 60 mg PO BEDTIME Qty: 30 6RF docusate sodium 100 mg capsule 200 mg PO BEDTIME PRN (Reason: for constipation) Qty: 60 6RF Linzess 290 mcg capsule 290 mcg PO QAM Qty: 30 6RF Print Language: Trinidadian
--- NOTE | 2025-02-04 17:15 | ECG_ITS ---
Test Reason : dyspnea Blood Pressure : */* mmHG Vent. Rate : 81 BPM Atrial Rate : 81 BPM P-R Int : 144 ms QRS Dur : 72 ms QT Int : 378 ms P-R-T Axes : 52 48 40 degrees QTcB Int : 439 ms Normal sinus rhythm Normal ECG When compared with ECG of 20-Dec-2023 16:42, Nonspecific T wave abnormality no longer evident in Anterior leads Referred By: Neftali Osborn Electronically Signed By: WALTER WEEKS MD
[2025-02-04 17:42] LABS: MANUAL DIFF FLAG NO
[2025-02-04 17:44] LABS: Basophils Absolute Auto 0.1 X10*3/uL (0.0-0.2); Eosinophils Absolute Auto 0.2 X10*3/uL (0.0-0.4); Eosinophils Percent Auto 3.4 % (0-4); Hematocrit 41.7 % (37.0-47.0); Hemoglobin 14.3 g/dl (12.0-16.0); Imm Gran Abs Auto 0.01 X10*3/uL (0.00-0.03); Imm Gran Pct Auto 0.2 % (0.0-0.4); Lymphocytes Absolute Auto 2.3 X10*3/uL (1.2-4.9); Lymphocytes Percent Auto 37.3 % (20-40); Mean Corpuscular HGB Conc 34.3 g/dl (31.0-35.0); Mean Corpuscular Hemoglobin 30.5 pg (27.0-33.0); Mean Corpuscular Volume 88.9 fL (80.0-98.0); Mean Platelet Volume 10.1 fL (9.4-12.3); Monocytes Absolute Auto 0.4 X10*3/uL (0.1-1.2); Monocytes Percent Auto 7.1 % (2-11); Neutrophils Absolute Auto 3.2 x10*3/uL (2.0-8.3); Platelet Count 222 X10*3/uL (160-400); Red Blood Count 4.69 X10*6/uL (4.20-5.50); Red Cell Distribution Width 13.1 % (11.0-16.0); White Blood Count 6.2 X10*3/uL (4.8-10.8)
[2025-02-04 17:59] LABS: Alanine Aminotransferase 32 U/L (0-31); Albumin Level 4.3 g/dL (3.5-5.0); Alkaline Phosphatase 87 U/L (39-117); Anion Gap 13 (12-20); Aspartate Amino Transferase 33 U/L (5-31); Bilirubin Total 0.3 mg/dL (0.0-1.0); Blood Urea Nitrogen 15 mg/dL (9-16); Calcium 9.6 mg/dL (8.4-10.2); Carbon Dioxide 26 mmol/L (22-29); Chloride 104 mmol/L (96-108); Creatinine Clr Calc Pharmacy 63.9; Estimated Glomerular Filt Rate > 60; Glucose Random 106 mg/dL (60-115); Potassium 4.1 mmol/L (3.3-5.1); Sodium 139 mmol/L (135-145); Total Protein 8.1 g/dL (6.5-8.0)
[2025-02-04 18:04] LABS: B Type Natriuretic Peptide 14 pg/mL (<100)
[2025-02-04 18:06] LABS: Troponin-I High Sensitivity < 2.7 ng/L (<3.5-17.0)
[2025-02-04 18:19] LABS: Influenza A PCR NEGATIVE (Negative); Influenza B PCR NEGATIVE (Negative); Resp Syncy Virus RNA Qual PCR NEGATIVE (Negative); SARS COV2 PCR INHOUSE NEGATIVE (Negative)
[2025-02-04] MEDS: 0.9 % Sodium Chloride 1,000 ML 999 ML IV (18:57)
[2025-02-04] MEDS: LORazepam 2 MG/ML VIAL 1 MG IVPUSH (18:57)
== END 2025-02-04 21:49 | disposition home or self-care (01) ==
PROVIDERS: Physician Assistant; Emergency Provider Internal Medicine; PCP Family Medicine
DX: F41.9 Anxiety disorder, unspecified (principal); R06.02 Shortness of breath; J45.909 Unspecified asthma, uncomplicated; Z03.818 Encounter for observation for suspected exposure to other biological agents ruled out
CPT/HCPCS: 0241U; 36415; 71046; 80053; 83880; 84484; 85025; 93005; 96361; 96374; 99284; 99285; J2060

== ENCOUNTER → 2025-02-04 17:15 | Outpatient (BNV) | payer OTHER, SELFPAY | PROVIDERS: Emergency Provider Internal Medicine; PCP Family Medicine; Visit Provider Internal Medicine Cardiovascular Disease | DX: R06.00 Dyspnea, unspecified (principal) | CPT/HCPCS: 93010 ==

== ENCOUNTER → 2025-02-04 17:16 | Outpatient (BNV) | payer OTHER, SELFPAY | PROVIDERS: Emergency Provider Internal Medicine; PCP Family Medicine; Visit Provider Radiology Diagnostic Radiology | DX: R07.9 Chest pain, unspecified (principal) | CPT/HCPCS: 71046 ==

== ENCOUNTER 2025-02-18 13:55 | Outpatient (AMB) | payer OTHER, SELFPAY ==
--- NOTE | 2025-02-18 13:57 | A.OFFVIS_ITS ---
Vital Signs 02/18/25 14:00 Height 5 ft 2 in Weight 115 lb BMI 21.0 BP 113/67 Blood Pressure Location Lt brachial Position Sitting Pulse 91 Intake Visit Reasons: 6 months follow up [facility] Intake Note: Patient in office today in follow up of [facility]. CC: Patient reports that in January she had an anaphylactic reaction to suzie seeds and was admitted to the hospital. 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 Accompanied by: Self / Same As Patient Allergies No Known Drug Allergies Allergy (Unknown, Verified 02/18/25 14:05) none Suzie seeds Allergy (Uncoded 02/04/25 17:14) Anaphylaxis poppy seeds Allergy (Uncoded 02/04/25 17:14) Itching HPI HPI 6 months follow up [facility]: Details: Assessment & Plan (1) GERD (gastroesophageal reflux disease): Code(s): K21.9 - Gastro-esophageal reflux disease without esophagitis Category: Medical (2) Chronic idiopathic constipation: Code(s): K59.04 - Chronic idiopathic constipation Category: Medical (3) Diverticulitis: Code(s): K57.92 - Diverticulitis of intestine, part unspecified, without perforation or abscess without bleeding Category: Medical Plan [place] #[place] Live She is feeling much better after the abx tx - so it appears that she had an atypical presentation of diverticulitis - feeling it on the right instead of the right side. She continues on her Reglan 10 mg 4 times a day, Linzess 290 micro g, Dexilant, and bisacodyl. The only problem she is having is that the pharmacy is not supplying her the correct amt of pills. I'm unsure if this is a miscount, or qty limit via insurance. I advise her that she can also buy the bisacodyl OTC and it is fairly inexpensive. She admits she has already purchased it. I will send an rx for augmentin in case her sx return. She is educated that if she has to take it she should call me and be sure to complete the dose. ROV 6 mos. Medications: New amoxicillin-pot clavulanate 875-125 mg 1 tab PO BID 20 tabs 0RF 10 days K57.92 - Diverticulitis of intestine, part unspecified, without perforation or abscess without bleeding Changed From bisacodyl 10 mg (2 x 5 mg) PO BEDTIME 30 days 60 tabs 6RF K59.04 - Chronic idiopathic constipation To bisacodyl (Dulcolax (bisacodyl)) 10 mg (2 x 5 mg) PO BEDTIME 180 tabs 1RF 90 days K59.04 - Chronic idiopathic constipation Refilled dexlansoprazole (Dexilant) 60 mg PO BEDTIME 30 caps 6RF K21.9 - Gastro- esophageal reflux disease without esophagitis docusate sodium 200 mg (2 x 100 mg) PO BEDTIME PRN 60 caps 6RF for constipation K59.04 - Chronic idiopathic constipation linaclotide (Linzess) 290 mcg PO QAM 30 caps 6RF K59.04 - Chronic idiopathic constipation metoclopramide HCl 10 mg PO QID 120 tabs 6RF simethicone 180 mg PO QID 120 caps 6RF R14.0 - Abdominal distension (gaseous) TODAY'S VISIT [place] #V live She continues on her Reglan 10 mg 4 times a day, Linzess 290 micro g, Dexilant, and bisacody. She had an anaphylactic reaction to suzie seeds recently. She was admitted for 6 days! She is doing better now. 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 She will be due for repeat colonoscopy in 2025 ROV 6mos. [facility] Medical History GERD (gastroesophageal reflux disease) Diverticulitis Bilateral carpal tunnel syndrome Polyarthralgia Fracture of proximal phalanx of right thumb Carpal tunnel syndrome of left wrist Distal radius fracture, left Asthma Hepatitis B Fibromyalgia Surgical History H/O breast surgery H/O reduction mammoplasty Hx of abdominoplasty (~2004) History of open reduction and internal fixation (ORIF) procedure (~02/2018) Hx of section (~1979) Hx of colonoscopy Family History Father Lung cancer Diabetes Hepatitis Brother Diabetes Lung cancer Sister Gastritis Social History Household Members: Family Housing: House Do you presently have visiting nurse or other home services: No Alcohol intake: never Patient Tobacco Use Status: Never used Tobacco e-Cigarette/Vaping Use: Never Used Advance Directives Date on File: 01/10/25 service: No Review of Systems Const Denies fatigue, Denies fever(s), Denies night sweats, Denies poor appetite and Denies weight loss Eyes Details: glasses Reports requires corrective lenses ENT Reports Normal hearing present, Denies dental pain, Denies dysphagia, Denies hearing loss, Denies mouth pain, Denies odynophagia, Denies throat swelling, Denies tongue swelling and Reports other (Dentition adequate) Card Reports no additional complaints Resp Reports no additional complaints GI Details: Denies abdominal pain, Denies melena, Denies bloating, Denies hematochezia, Reports constipation, Denies GI cramping, Denies dysphagia, Denies excessive flatus, Denies early satiety, Reports heartburn, Denies diarrhea, Denies nausea, Denies odynophagia, Denies vomiting and Denies hematemesis Skin/Breast Denies pruritus, Denies lesions, Denies rash and Denies jaundice Neuro Reports Normal hearing present and Denies Abnormal speech present Endo Denies fatigue Aller/Immun Denies throat swelling and Denies tongue swelling Physical Exam Vital Signs: Last Vital Signs Pulse 91 02/18/25 14:00 BP 113/67 02/18/25 14:00 BMI result Body Mass Index 21.0 Const General: cooperative, no acute distress, well developed and well groomed Nutritional Appearance: average body habitus and well nourished Orientation/consciousness: oriented to person, oriented to place and oriented to time Limitations: language barrier HEENT Head: Yes normocephalic and Yes atraumatic Eyes General: appearance normal, both eyes and all related structures Pupils: Equal, round and reactive pupils present Neck Neck: Yes normal visual inspection and Yes no lymphadenopathy Thyroid: Thyroid normal Resp Effort & Inspection: normal respiratory effort and able to speak in complete sentences Auscultation: clear to auscultation bilaterally Cardio Rate: regular rate Rhythm: regular rhythm Heart sounds: Normal, physiologic split S2 sound present Peripheral pulses: radial pulses present and posterior tibial pulses present GI Inspection: No distended and No Abdominal panniculus present Palpation (GI): Soft to palpation, nontender, no guarding, not rigid and No hepatosplenomegaly present Percussion: Yes normal to percussion Auscultation: normal bowel sounds Rectal Exam - Female: deferred Skin General skin exam: no rashes or lesions noted, turgor normal, skin not dry, no jaundice, No spider nevi and no striae Rashes: no rashes Nails: normal Neuro General: oriented to person, oriented to place and oriented to time Cranial nerves: Yes Equal, round and reactive pupils present and Yes Normal hearing present Speech: No Abnormal speech present Extrem General: Yes normal to inspection, No clubbing, No cyanosis and No edema Psych Appearance: grossly normal and well kempt Mental Status: mental status grossly normal Speech and movement: Normal speech and movement present Affect: normal affect Attitude: cooperative Thought process: Normal thought process present and not confabulating Thought content: Normal thought content present Insight: Limited insight present (Psych) Judgement: Limited judgement present (Psych) Assessment & Plan Assessment & Plan (1) Chronic idiopathic constipation: Code(s): K59.04 - Chronic idiopathic constipation Category: Medical (2) Delayed gastric emptying: Code(s): K30 - Functional dyspepsia Category: Medical (3) GERD (gastroesophageal reflux disease): Code(s): K21.9 - Gastro-esophageal reflux disease without esophagitis Category: Medical Plan [place] #V live She continues on her Reglan 10 mg 4 times a day, Linzess 290 micro g, Dexilant, and bisacody. She had an anaphylactic reaction to suzie seeds recently. She was admitted for 6 days! She is doing better now. 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 She will be due for repeat colonoscopy in 2025 ROV 6mos. Medications: New metoclopramide HCl 10 mg PO QID 120 tabs 6RF Abdominal Pain K30 - Functional dyspepsia, K59.04 - Chronic idiopathic constipation simethicone 180 mg PO QID 120 caps 6RF gas or bloating Refilled bisacodyl 10 mg (2 x 5 mg) PO BEDTIME 180 tabs 1RF K59.04 - Chronic idiopathic constipation docusate sodium 200 mg (2 x 100 mg) PO BEDTIME PRN 60 caps 6RF for constipation K59.04 - Chronic idiopathic constipation dexlansoprazole (Dexilant) 60 mg PO BEDTIME 30 caps 6RF K21.9 - Gastro- esophageal reflux disease without esophagitis dicyclomine 10 mg PO TID PRN 90 caps 3RF abdominal pain docusate sodium 200 mg (2 x 100 mg) PO BEDTIME PRN 60 caps 6RF for constipation K59.04 - Chronic idiopathic constipation linaclotide (Linzess) 290 mcg PO QAM 30 caps 6RF K59.04 - Chronic idiopathic constipation Coding Level of Care Code Est Pt Level 3 (83314) Diagnoses Chronic idiopathic constipation K59.04 Delayed gastric emptying K30 GERD (gastroesophageal reflux disease) K21.9
[2025-02-18 14:00] VITALS: BP 113/67; PULSE 91; BMI 21.0
--- OUTSIDE RECORDS SUMMARY | 2025-02-18 16:09 | XMS_ITS | Encounter Summary ---
Author Organization [employer] Address [address] [place] [address] Care Team Providers Care Bark Spudder Name Role Phone Maryana Winkler MD Primary Care Provider Reason for Visit * Reason Comments Med Refill Encounter Details Date Type Department Care Team ([facility] st Contact Info) Description 08/02/2024 Refill [facility] MEDICINE [address], [place] [phone] Maryana Winkler MD [address] [place], [place] [phone] Social History Tobacco Use Types Packs/Day Years [...] Care Team (Late st Contact Info) Description 04/09/2025 11:00 AM EDT Office Visit [facility] ADULT DENTAL [address] [place] [address] Enid Henry [address] [place] [address] 11/30/2025 9:00 AM EST Medication Management [facility] MEDICINE [address] [place] [address] documented as of this encounter Visit Diagnoses Not on filedocumented in this encounter Additional Health Concerns Assessment Noted Time PHQ-9 Depression Total Score: 13 024 11:34 AM EST documented as of this encounter Care Teams Bark Spudder Relationship Specialty Start Date End Date Maryana Winkler MD [address] [place] [address] PCP - General Family Medicine 11/12/18 documented as of this encounter
--- OUTSIDE RECORDS SUMMARY | 2025-02-18 16:09 | XMS_ITS | Encounter Summary ---
Author Organization [employer] Address [address] [place] [address] 7t [place] [address] Care Team Providers Care Geochemical Laboratory Technician Name Role Phone Maryana Winkler MD Primary Care Provider [phone] Reason for Referral * Consultation (Urgent) - Authorized Specialty Diagnoses / Procedures Referred By Karlee t Referred To Contact Allergy Diagnoses Anaphylaxis, subsequent encounter Food allergy Yanni Momin ANP [address] [place] [address] Phone: tel: fax: Fito Fu MD [address] [place] [address] Drive [address] [place] [address] Phone: tel: fax: Referral ID Status Reason Start Date Expiration Date Visits Requested Visits Authorized [id number] Authorized Specialty Services Required 01/28/2025 01/28/2026 1 1 * Consultation (Routine) - Authorized Specialty Diagnoses / Procedures Referred By Contac t Referred To Contact Cardiology Diagnoses Hypotension, unspecified hypotension type Yanni Momin ANP [address] [place] [address] Phone: tel: fax: [address] Phone: tel: fax: Referral ID Status Reason Start Date Expiration Date Visits Requested Visits Authorized [id number] Authorized Specialty Services Required 01/28/2025 01/28/2026 1 1 Reason for Visit * Reason Comments [place] [facility] [place] [facility] Dx aller gic Reaction Encounter Details Date Type Department Care Team (Late st Contact Info) Description 01/28/2025 2:30 PM EDT Office Visit [facility] MEDICINE [address] [place] [address] Yanni Momin ANP [address] [place] [address] Anaphylaxis, subsequent encounter (Primary Dx); Food allergy; Hospital discharge follow-up; Hypotension, unspecified hypotension type; Migraine without aura and without status migrainosus, not intractable; Dyspnea on exertion; Elevated glucose level Social History Tobacco Use Types Packs/Day Years Used Date Smoking Tobacco: Never Passive Smoke Exposure: Never Smokeless Tobacco: Never Alcohol Use Standard Drinks/Week Comments Defer 0 (1 standard drink = 0.6 oz pur e alcohol) Depression Answer Date Recorded Patient Health Questionnaire-9 Score 1 01/28/2025 Patient Health Questionnaire-9 Score 1 01/28/2025 Last PHQ-9: Questionnaire Data Not on file 0 01/28/2025 Housing Stability Answer Date Recorded What is your housing situation today? I have aki ortiz 01/28/[address] you li ve. Do you have problems with any of the following? None of the above 01/28/2025 Food Insecurity Answer Date Recorded Within the past 12 months, y ou worried that your food would run out before you got money to buy more: Never True 01/28/2025 Within the past 12 months,th e food you bought just didn't last and you didn't have enough money to get more: Never True Transportation Answer Date Recorded In the past 12 months, has l ack of transportation kept you from medical appts, meetings, work or from getting things needed for daily living? No 01/28/2025 Utilities Answer Date Recorded In the past 12 months, has t he electric, gas, oil or water company threatened to shut off services in your home? No 01/28/2025 Depression Answer Date Recorded Patient Health Questionnaire-2 Score 0 01/28/2025 Internet Access Answer Date Recorded Internet Access Q1 Yes 01/28/2025 Internet Access Q2 Not on file 01/28/2025 Comments Unknown Sex and Gender Information Value Date Recorded Sex Assigned at Female 09/11/2022 10:21 AM EDT Legal Sex Female 10:21 AM EDT Gender Identity Female 09/11/2022 10:21 AM EDT Sexual Orientation Straight 09/11/2022 10 :21 AM EDT documented as of this encounter Last Filed Vital Signs Vital Sign Reading Time Taken Comments Blood Pressure 119/77 01/28/2025 2:23 PM EDT Pulse 75 01/28/2025 2:23 PM EDT Temperature 36.3 ??C (97.3 ??F) 01/28/2025 2:23 PM ED T Respiratory Rate 20 01/28/2025 2:23 PM EDT Oxygen Saturation 98% 01/28/2025 2:23 PM EDT Inhaled Oxygen Concentration - - Weight 53.2 kg (117 lb 3.2 oz) 01/28/2025 2:23 P M EDT Height 149.9 cm (4' 11 ) 01/28/2025 2:23 PM EDT Body Mass Index 23.67 01/28/2025 2:23 PM EDT documented in this encounter Progress Notes * RIN Roland - 01/28/2025 2:30 PM EDT Subjective Patient ID: Tiffany Vergara is a 59 y.o. female who presents for Hospital Follow- up [place] Dx allergic Reaction). HPI PMH as below Here today for HDF. From hospital discharge 59-year-old female with a past medical history of fibromyalgia, constipation, GERD and delayed gastric emptying admitted to ICU for management of anaphylactic shock likely from suzie seeds anaphylactic shock suspected to be secondary to suzie seeds in a protein powder treated in ICU with IV Solu-Medrol, Benadryl, Pepcid, and epinephrine. Due to labile blood pressure was initiated on epinephrine drip. Midodrine added and was Successfully weaned and transferred to [facility] on 01/13. bp has remained stable on midodrine. word-finding difficulty/aphasia-concern for TIA head ct and cta head/neck ordered and negative. MRI negative. Seen by PT/OT no indication for ongoing services. Seen by neurology who thought medications could have been playing a role with her symptoms. Recommend to reduce topiramate by 50% and discontinue amitriptyline. She does have EpiPen now for home and travel. She is cont to take minodrine. She is worried that her blood pressures have been elevated but none have been above her blood pressure reading here today 119/77. We reviewed normal parameters of BP and when to call clinic. She is not taking amitriptyline but she did get from pharmacy so I will let them know. Unfortunately she is having migraines and she has stopped taking amitriptyline and propranolol as directed from the hospital and I asked her to please confirm that she has neurology appointment to follow-up on alternatives for migraine prevention. She is taking lower dose of topiramate as directed. She is drinking water and electrolyte beverages (coconut water and another OTC product) She is taking now: No amitriptyline. I confirmed with pharmacy that this was appropriately discontinued. Topiramate 50mg BID as directed No propranolol Gabapentin new dose 200mg TID Midodrine 10mg TID She thinks she has appt w/ Neuro soon. We will refer to cards and allergy. She will cont good hydration. Did have 1 glu level 202 on blood draw at hospital, pt thinks this was d/t solumedrol. Faustina MAYERS provided Korean interpretation Patient Active Problem List Diagnosis Fibromyalgia Endometrial hyperplasia Depressive disorder Degeneration of lumbar intervertebral disc Constipation Chronic neck pain Asthma Ankle pain Allergic rhinitis Gastroesophageal reflux disease Generalized anxiety disorder Irritable bowel syndrome Lung nodule Migraine Rotator cuff tear arthropathy Personal history of COVID-19 Acute pain of right knee Sicca syndrome (CMS/HCC) Primary osteoarthritis of both knees Posttraumatic seroma (CMS/HCC) Obstructive sleep apnea syndrome Chronic type B viral hepatitis (CMS/HCC) Closed fracture of left distal radius Closed displaced fracture of proximal phalanx of right thumb Carpal tunnel syndrome of left wrist Fracture of unspecified phalanx of right thumb, subsequent encounter for fracture with routine healing Wrist fracture, left, closed, initial encounter Localized gingival recession Dental plaque Disease of gingiva due to dental restorative material Missing teeth, acquired Allergic conjunctivitis Hypokalemia Right lower quadrant pain Xerostomia Breast cyst, right Breast cyst, left Mass on back Polypharmacy Background Pharmacist Tosin Stinson, AubreyD contacted patient to discuss upcoming hospital discharge visit for anaphylactic shock, word-finding difficulty due to medication : Future Appointments Date Time Provider Department Center 01/29/2025 9:30 AM Maryana Winkler MD MEDICINE [facility] 11/30/2025 9:00 AM [facility] CQ DEVELOPER 1 MEDICINE [facility] Hospital Course and Medication Reconciliation [facility] [place]01/10/25-01/15/25) Patient presented for evaluation of sudden development of diffuse itching hives following consumption of plant based smoothie with suzie seeds. Admitted to ICU due to anaphylactic shock and received SoluMedrol ,IV Bendaryl, IM epinephrine and Pepcid. Patient had labile blood pressures, systolic in the ED of 70s, and was initiated on epinephrine drip. Midodrine was added and patient successfully weaned and BP stable. Patient noted to have word-finding difficulty, concern for TIA. CT/CTA head/necknegative. Neurology thought medications may be contributing, topiramate was reduced and amitriptyline discontinued. Patient discharged home. Medication changes that occurred during hospitalization include: Added Midodrine 10 mg three times a day Changed Amitriptyline 100 mg at bedtime decreased to 50 mg at bedtime for 3 days then discontinue Topiramate 100 mg twice a day decreased to 50 mg twice a day Gabapentin 400 mg three times a day decreased to 200 mg three times a day Discontinued: propranolol, acetaminophen Preferred Pharmacy: [facility] [address] [facility] [address] [facility] [id number] Medbox: Yes Date: in process Patient Reported History Contacted patient and spoke with son (with patient permission) Confirmed medication changes as above Have been removing and not taking amitriptyline and propranolol, they have been cutting topiramate dose in half however since they were not given a new script for gabapentin 200 mg they have been taking the 400 mg caps once a day Reported patient has been jittery and they believe is it due to nerve pain and do not feel that the 400 mg once daily dose is helping, would like to get 200 mg dose to dose three times a day as planned at discharge Reported concern about patient's appointment being so far away as they are still dizzy, get lightheaded and out of breath easily Confirmed they have been taking midodrine an BP fluctuates a lot, between 85-112/63-70 mmhg Reported they need a referral to writer producer and pulmonary Confirmed and agreeable to HDF appointment as listed above Pharmacist Notes CrCl 58.5 ml/min (IBW Scr 0.72 on 01/10/25). N0 renal dose adjustment needed at this time. Attempted to contact Dr. Emanuel's office to request scripts for topiramate however number for the office says it is invalid. Immunizations The MIIS database was reconciled and patient is indicated for the following immunizations: Pharmacist reviewed immunization records today; no vaccination gaps exist at this time. Review of Systems Constitutional: Negative for chills and fever. HENT: Negative for sore throat. Respiratory: Negative for cough. Cardiovascular: Negative for chest pain. Gastrointestinal: Negative for constipation and diarrhea. Endocrine: Negative for polydipsia, polyphagia and polyuria. Genitourinary: Negative for dysuria. Objective BP 119/77 (BP Location: Left arm, Patient Position: Sitting, BP Cuff Size: Adult) Pulse75 Temp 97.3 ??F (36.3 ??C) (Temporal) Resp 20 Ht 4' 11 (1.499 m) Wt 117 lb 3.2 oz (53.2 kg) SpO2 98% BMI 23.67 kg/m?? Physical Exam Vitals reviewed. Constitutional: Appearance: Normal appearance. HENT: Head: Normocephalic and atraumatic. Eyes: General: No scleral icterus. Extraocular Movements: Extraocular movements intact. Pupils: Pupils are equal, round, and reactive to light. Cardiovascular: Rate and Rhythm: Normal rate and regular rhythm. Pulmonary: Effort: Pulmonary effort is normal. No respiratory distress. Breath sounds: Normal breath sounds. Musculoskeletal: Right lower leg: No edema. Left lower leg: No edema. Neurological: Mental Status: She is alert and oriented to person, place, and time. Cranial Nerves: No cranial nerve deficit. Gait: Gait normal. Psychiatric: Mood and Affect: Mood normal. Behavior: Behavior normal. Assessment/Plan Diagnoses and all orders for this visit: Anaphylaxis, subsequent encounter Will refer her to writer producer for additional evaluation. She is very worried understandably about herallergic reaction. She previously had known allergy to poppy seeds and this was her first exposure as far she knows to suzie. Food allergy Comments: Suzie and poppy seeds, LAZARO allergy Hospital discharge follow-up Hypotension, unspecified hypotension type I will refer to cardiology. She is continuing to hydrate well and take midodrine as prescribed. I asked her to continue taking this as her blood pressure today is within normal limits and I am afraidwithout it her blood pressure would decrease. We discussed need for adequate salt intake as well. Unclear etiology of hypotension given again her good fluid intake and persistence presumably after changing her medications to stop propranolol and amitriptyline and decrease topiramate. Migraine without aura and without status migrainosus, not intractable She will follow-up with neurology as planned Dyspnea on exertion Lungs CTAB today. She denies chest pain. Suspect deconditioning after hospital stay. She will increase activity as tolerated and I will check labs as below. - CBC auto differential; Future - B Type Natriuretic Peptide (BNP); Future Elevated glucose level - Hemoglobin A1c; Future documented in this encounter Plan of Treatment Upcoming Encounters Date Type Department Care Team (Late st Contact Info) Description 04/09/2025 11:00 AM EDT Office Visit [facility] ADULT DENTAL [address] [place] [address] [place], [place] [address] [place] [address] 11/30/2025 9:00 AM EST Medication Management [facility] MEDICINE [address] [place] [address] Scheduled Referrals Name Type Priority Associated Diagnoses Orde r Schedule Referral to Cardiology Outpatient Referral Routine Hypotension, unspecified hypotension type Expected: 01/28/2025 (Approximate), Expires: 01/28/2026 Referral to Allergy Outpatient Referral Urgent Anaphylaxis, subsequent encounter Food allergy Expected: 01/28/2025 (Approximate), Expires: 01/28/2026 documented as of this encounter Procedures Procedure Name Priority Date/Time Associated Diagnosis Comments CBC WITH AUTO DIFFERENTIAL Routine 01/29/2025 8:31 AM EDT Dyspnea on exertion B TYPE NATRIURETIC PEPTIDE (BNP) Routine 01/29/2025 8:31 AM EDT Dyspnea on exertion HEMOGLOBIN A1C Routine 01/29/2025 8:31 AM EDT Elevated glucose level documented in this encounter Results * B Type Natriuretic Peptide (BNP) (01/29/2025 8:31 AM EDT) B Type Natriuretic Peptide 47 <100 pg/mL [facility] Blood Venous blood specimen / Unknown 01/29/2025 8:31 AM EDT 01/29/2025 11:18 AM EDT [facility] BLOOD ORDERABLES Final Resul t [facility] [address] [place] [phone] * Hemoglobin A1c (01/29/2025 8:31 AM EDT) Hemoglobin A1c 5.4 <6.0 % [facility] Comment:Hemoglobin A1C Refer ence Range Adults: 4.8 - 6.0 % Non diabetic: < 6.0 % Goal: < 7.0 %Additional Action Suggested: > 8.0 %Note: Hemoglobin A1c results are invalid for patients with abnormal amounts of HbF. Blood transfusions may impact the HbA1c concentration in the patient sample. Estimated Average Glucose 108 mg/dL [facility] Comment:eAG = Estimated ave rage glucose which is %A1C expressed asaverage glucose, using the formula of the [id number] Glucose study (ADAG), Diabetes Care, Vol.31,#8,Jun. 2007 Blood Venous blood specimen / Unknown 01/29/2025 8:31 AM EDT 01/29/2025 11:21 AM EDT us Yanni Momin [facility] BLOOD ORDERABLES Final Resul t [facility] [address] [place] [address] [phone] * CBC auto differential (01/29/2025 8:31 AM EDT) White Blood Count 6.0 4.8 - 10.8 X10*3/uL [facility] Red Blood Count 4.56 4.20 - 5.50 X10*6/uL [facility] Hemoglobin 14.0 12.0 - 16.0 g/dl [facility] Hematocrit 41.9 37.0 - 47.0 % [facility] Mean Corpuscular Volume 91.9 80.0 - 98.0 fL [facility] Mean Corpuscular Hemoglobin 30.7 27.0 - 33.0 pg [facility] Mean Corpuscular HGB Conc 33.4 31.0 - 35.0 g/dl [facility] Red Cell Distribution Width 13.5 11.0 - 16.0 % [facility] Platelet Count 222 160 - 400 X10*3/uL [facility] Mean Platelet Volume 10.3 9.4 - 12.3 fL [facility] Neutrophils Percent Auto 64.4 45 - 73 % [facility] Imm Gran Pct Auto 0.3 0.0 - 0.4 % [facility] Lymphocytes Percent Auto 25.3 20 - 40 % [facility] Monocytes Percent Auto 7.2 2 - 11 % [facility] Eosinophils Percent Auto 2.0 0 - 4 % [facility] Basophils Percent Auto 0.8 0 - 2 % [facility] NRBC Pct Auto 0.0 0.0 - 0.2 /100WBC [facility] Neutrophils Absolute Auto 3.9 2.0 - 8.3 x10*3/uL [facility] Imm Gran Abs Auto 0.02 0.00 - 0.03 X10*3/uL [facility] Lymphocytes Absolute Auto 1.5 1.2 - 4.9 X10*3/uL [facility] Monocytes Absolute Auto 0.4 0.1 - 1.2 X10*3/uL [facility] Eosinophils Absolute Auto 0.1 0.0 - 0.4 X10*3/uL [facility] Basophils Absolute Auto 0.1 0.0 - 0.2 X10*3/uL [facility] NRBC Abs Auto 0.000 0.0 - 0.012 X10*3/uL [facility] Blood Venous blood specimen / Unknown 01/29/2025 8:31 AM EDT 01/29/2025 11:21 AM EDT Yanni Momin [facility] BLOOD ORDERABLES Final Resul t [facility] [address] [place] [phone] [phone] documented in this encounter Visit Diagnoses Diagnosis Anaphylaxis, subsequent encounter- Primary Food allergy Dermatitis due to food taken internally Hospital discharge follow-up Other follow-up examination Hypotension, unspecified hypotension type Migraine without aura and without status migrainosus, not intractable Dyspnea on exertion Other dyspnea and respiratory abnormality Elevated glucose level documented in this encounter Additional Health Concerns Assessment Noted Time PHQ-9 Depression Total Score: 1 01/29/20 25 2:27 PM EDT documented as of this encounter Care Teams Geochemical Laboratory Technician Relationship Specialty Start Date End Date Maryana Winkler MD [address] [place] [phone] PCP - General Family Medicine 11/12/18 documented as of this encounter
--- OUTSIDE RECORDS SUMMARY | 2025-02-18 16:09 | XMS_ITS | Encounter Summary ---
Author Organization [employer] Address [address] [place] [address] [address] [place] [address] Care Team Providers Care Heel Shaver Name Role Phone Maryana Winkler MD Primary Care Provider [phone] Encounter Details Date Type Department Care Team (Latest Contact Info) Description 03/23/2022 Abstract [facility] CONVERSIONS Dental, Provider, DDS Social History Tobacco [...] Description 04/09/2025 11:00 AM EDT Office Visit [facility] ADULT DENTAL [address] [place] [address] [place] [address] [place] [address] 11/30/2025 9:00 AM EST Medication Management [facility] [address] [place] [address] documented as of this encounter Visit Diagnoses Not on filedocumented in this encounter Care Teams Heel Shaver Relationship Specialty Start Date End Date Maryana Winkler MD [address] [place] [address] PCP - General Family Medicine 11/12/18 documented as of this encounter
--- OUTSIDE RECORDS SUMMARY | 2025-02-18 16:09 | XMS_ITS | Encounter Summary ---
Author Organization [employer] Address [address] [facility] [address] [place] [address] Care Team Providers Care Public Health Epidemiologist Name Role Phone Maryana Winkler MD Primary Care Provider [phone] Encounter Details Date Type Department Care Team ([facility] st Contact Info) Description 01/19/[address] [facility] MEDICINE [address] [place] [address] Maryana Winkler MD [address] [place] [address] Social History Tobacco Use Types Packs/Day Years [...] Description 04/09/2025 11:00 AM EDT Office Visit [facility] ADULT DENTAL [address] [place] [address] [place], [place] [address] [place] [address] 11/30/2025 9:00 AM EST Medication Management [facility] MEDICINE [address] [place] [address] documented as of this encounter Visit Diagnoses Not on filedocumented in this encounter Additional Health Concerns Assessment Noted Time PHQ-9 Depression Total Score: 13 024 11:34 AM EST documented as of this encounter Care Teams Public Health Epidemiologist Relationship Specialty Start Date End Date Maryana Winkler MD [address] [place] [address] PCP - General Family Medicine 11/12/18 documented as of this encounter
--- OUTSIDE RECORDS SUMMARY | 2025-02-18 16:09 | XMS_ITS | Clinical Summary ---
Author Organization [employer] Address [address] [place] [address] 7[address] [place] [address] Care Team Providers Care Vp Patient Name Role Phone Maryana Winkler MD Primary Care Provider [phone] Allergies Active Allergy Reactions Criticality Noted Date Comments [place] Deer Oil Anaphylaxis High 12/07/2023 Juan Oil (Salvia Hispanica) Anaphylaxis High Allergy to Juan seeds (not an option in epic) Fexofenadine Unknown Medications SUMAtriptan (Imitrex) 100 MG tablet Take 100 mg by mouth if needed in the morning and at bedtime. 023 Active Simethicone Ultra Strength 180 MG capsule Take 180 mg by mouth 4 times daily. 023 Active metoclopramide (Reglan) 10 MG tablet Take 10 mg by mouth 4 times daily. 023 Active Linzess 290 MCG capsule Take 290 mcg by mouth in the morning. 022 Active hydrOXYzine HCl (Atarax) 50 MG tablet Take 50 mg by mouth at bedtime. 023 Active DULoxetine (Cymbalta) [address] capsule TAKE 1 CAPSULE BY MOUTH TWICE DAILY IN THE MORNING AND IN THE EVENING 022 Active docusate sodium (Colace) 100 MG capsule TAKE 2 CAPSULES BY MOUTH EVERY DAY AT BEDTIME NEEDED 023 Active Dexilant [address] capsule Take 1 capsule by mouth at bedtime. 022 Active busPIRone (Buspar) 15 MG tablet TAKE 1 TABLET BY MOUTH EVERY MORNING and TAKE 2 TABLETS BY MOUTH EVERY DAY AT BEDTIME 023 Active buPROPion XL (Wellbutrin XL) 300 MG 24 hr tablet Take 300 mg by mouth in the morning. 023 Active Bisacodyl EC 5 MG EC tablet TAKE 2 TABLETS BY MOUTH EVERY DAY AT BEDTIME 023 Active albuterol (Ventolin HFA) 108 (90 Base) MCG/ACT inhalerIndicati ons:Moderate persistent asthma with acute exacerbation Inhale 2 puffs every 4 (four) hours. 18 g 023 Active albuterol (2.5 MG/3ML) 0.083% nebulizer solutionIndicat ions:Wheezing Take 3 mL (2.5 mg) by nebulization every 4 (four) hours if needed for wheezing. 75 mL 3 023 Active Mometasone Furoate (Asmanex HFA) 200 MCG/ACT aerosol Take 1 puff twice daily 13 g 11 024 Active loratadine (Claritin) 10 MG tablet TAKE 1 TABLET BY MOUTH EVERY MORNING 90 tablet 3 024 Active montelukast (Singulair) 10 MG tablet TAKE 1 TABLET BY MOUTH EVERY EVENING 90 tablet 3 024 Active tacrolimus (Protopic) 0.1 % ointment Apply topically if needed in the morning and at bedtime (rash). 60 g 1 024 Active magnesium oxide (Mag-Ox) 400 (240 Mg) MG tablet Take 1 tablet by mouth in the morning. 024 Active atorvastatin (Lipitor) 40 MG tabletIndicatio ns:Dyslipidemia TAKE 1 TABLET BY MOUTH EVERY EVENING 90 tablet 3 025 Active D3 Super Strength 50 MCG (2000 UT) capsule TAKE 1 CAPSULE BY MOUTH EVERY MORNING 30 capsule 3 025 Active Diclofenac Sodium 1 % gelIndications: Acute right ankle pain APPLY 2 GRAMS TOPICALLY TO AFFECTED AREA(S) TWICE DAILY NEEDED 350 g 3 025 Active EPINEPHrine (Epipen) 0.3 MG/0.3ML injection syringe Inject 0.3 mL (0.3 mg) as directed 1 (one) time if needed for anaphylaxis (severe allergic reaction). Inject into upper leg. Call 911 after use. 1 each 1 025 Active midodrine (Proamatine) 10 MG tablet Take 1 tablet by mouth 3 times daily. 025 Active prazosin (Minipress) 1 MG capsule Take 1 capsule by mouth at bedtime. May take 1 additional capsule as needed for nightmares Active gabapentin (Neurontin) 100 MG capsule Take 2 capsules (200 mg) by mouth 3 times daily. 180 capsule Active topiramate 50 MG tablet Take 1 tablet (50 mg) by mouth 2 times daily. 60 tablet 1 Active Blood Pressure [place] [facility] [place] daily 1 each Active topiramate (Topamax) 100 MG tablet TAKE 1 TABLET BY MOUTH TWICE DAILY IN THE MORNING AND AT BEDTIME 2024 Discontinued(M ed list cleanup (will not trigger notification to Pharmacy)) propranolol LA (Inderal LA) 80 MG 24 hr capsule Take 80 mg by mouth in the evening. 022 2024 Discontinued(M ed list cleanup (will not trigger notification to Pharmacy)) amitriptyline (Elavil) 50 MG tablet TAKE 2 TABLETS BY MOUTH EVERY DAY AT BEDTIME 023 2024 Discontinued(M ed list cleanup (will not trigger notification to Pharmacy)) gabapentin (Neurontin) 400 MG capsule Take 1 capsule (400 mg) by mouth 3 times daily. 90 capsule 11 025 2024 Discontinued(M ed list cleanup (will not trigger notification to Pharmacy)) topiramate 50 MG tablet Take 1 tablet by mouth 2 times daily. 2024 Discontinued(R eorder (will not trigger notification to Pharmacy)) gabapentin (Neurontin) 100 MG capsule Take 2 capsules by mouth 3 times daily. 2024 Discontinued(R eorder (will not trigger notification to Pharmacy)) topiramate 50 MG tablet Take 1 tablet (50 mg) by mouth 2 times daily. 60 tablet 025 2024 Discontinued(R eorder (will not trigger notification to Pharmacy)) Active Problems Problem Noted Date Diagnosed Date Hypotension 02/13/2025 Assessment & Plan (02/13/2025 1:24 PM EDT): - patient had lost weight gradually, and significant amount, by lifestyle modification - recommended adequate nutritional and fluid intake - prescribed midodrine, which may be contributing to headache - advised to continue BP check at home, and take midodrine if her BP is < 90 and or < 100 with symptom. - slowly wean off from midodrine Hx of anaphylactic shock 02/13/2025 Assessment & Plan (02/13/2025 1:25 PM EDT): - carry epi-pen - referred to learning technologies specialist Chronic headache 02/09/2025 Assessment & Plan (02/13/2025 1:19 PM EDT): - history of migraine and followed by neurologist - previously diagnosed with migraine, and was being prescribed propranolol, amitriptyline, topiramate, and gabapentin - current LINARES seems to be different from migraine, possibly midodrine side effect, withdrawal symptoms from amitriptyline, propranolol, and topiramate - resume topiramate - consider adding low-dose amitriptyline if still symptomatic - recommended acupuncture as she used to go before - work on stress reduction - continue following with recommendation from [facility] provider Transaminitis 02/09/2025 Food 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 Smitha Greene at [facility] [place] -continue following with recommendations by Orthopedist -no longer in cast -Continue occupational therapy Assessment & Plan (02/08/2023 1:33 PM EDT): S/p surgery on 01/25/23 -continue following with recommendations by Orthopedist -currently in cast -pt would benefit from [employer] services Closed displaced fracture of proximal phalanx [...] Plan (12/24/2023 5:49 AM EST): Following with [facility] Room Service Waiter/Waitress, last seen in Jun 2023 -Patient was Prescribed Baclofen as visit - continue baclofen - continue lidoderm patches - continue Diclofenac gel - continue acetaminophen prn - judiciously use Ibuprofen/Motrin/Naproxen - continue Gabapentin - recommended to contact Room Service Waiter/Waitress regarding MRI Scheduling - Room Service Waiter/Waitress is planning to place a Peripheral Nerve Stimulator after MRI Scan Assessment & Plan (04/30/2023 7:37 PM EDT): Following with [facility] Room Service Waiter/Waitress, last seen on 04/02/23 -Patient was Prescribed Baclofen as visit - continue baclofen - continue lidoderm patches - continue Diclofenac gel - continue acetaminophen prn - judiciously use Ibuprofen/Motrin/Naproxen - continue Gabapentin - recommended to contact Room Service Waiter/Waitress regarding MRI Scheduling - Room Service Waiter/Waitress is planning to place a Peripheral Nerve Stimulator after MRI Scan Irritable bowel syndrome 08/17/2015 Assessment & Plan (11/11/2024 12:37 PM EST): -following with [facility] GI, last seen in Oct 2023 -prescribed simethicone, metoclopramide, and Linzess -continue current treatment plan per GI Assessment & Plan (12/24/2023 5:46 AM EST): -following with [facility] GI, last seen in Oct 2023 -prescribed simethicone, metoclopramide, and Linzess -continue current treatment plan per GI Assessment & Plan (02/18/2023 7:30 AM EDT): -following with [facility], last seen in Oct 2022 -prescribed simethicone, metoclopramide, and Linzess -continue current treatment plan per GI Migraine 12/02/2014 Assessment & Plan (02/13/2025 1:21 PM EDT): - following with neurologist - restart topiramate - recommended to discuss with neurologist regarding to reducing or tapering down / off TCA - Pt had been prescribed Propanolol for headache; will not restart due to hypotension Assessment & Plan (11/11/2024 1:24 PM EST): [...] Assessment & Plan (11/21/2024 12:25 PM EST): -Long Goods Drier: [facility], last visit in 01/22/24 -referred to orthopedist and paperhanger and painter -previously taking hydroxychloroquine for possible inflammatory arthritis (Hx LAZARO and RF positive), and it was discontinued by new lead injection mold technician -Patient was interested in CBD treatment previously -Pt has tried physical therapies several times, and currently practicing it at home -patient is attending acupuncture. Encouraged to continue -Encouraged to try Taichi and Yoga as recommended -Decrease gabapentin from 600 to 400 mg tid Assessment & Plan (07/26/2024 6:57 AM EDT): -Long Goods Drier: [facility], last visit in 01/22/24 -referred to orthopedist and paperhanger and painter -previously taking hydroxychloroquine for possible inflammatory arthritis (Hx LAZARO and RF positive), and it was discontinued by new lead injection mold technician -Patient was interested in CBD treatment previously -Pt has tried physical therapies several times, and currently practicing it at home -patient is attending acupuncture. Encouraged to continue -Encouraged to try Taichi and Yoga as recommended Assessment & Plan (03/18/2024 9:37 AM EDT): -Long Goods Drier: [facility], last visit in 01/22/24 -referred to orthopedist and paperhanger and painter -previously taking hydroxychloroquine for possible inflammatory arthritis (Hx LAZARO and RF positive), and it was discontinued by new lead injection mold technician -Patient was interested in CBD treatment previously -Pt has tried physical therapies several times -patient is attending acupuncture. -Encouraged to try Taichi and Yoga as recommended -Cont attending Acupuncture, since doing well. Assessment & Plan (12/24/2023 5:50 AM EST): -Long Goods Drier: [facility], last visit in 01/18/23 -referred to orthopedist and paperhanger and painter -previously taking hydroxychloroquine for possible inflammatory arthritis (Hx LAZARO and RF positive), and it was discontinued by new lead injection mold technician -Patient was interested in CBD treatment previously -Pt has tried physical therapies several times -patient is attending acupuncture. -Encouraged to try Taichi and Yoga as recommended -Cont attending Acupuncture, since doing well. Assessment & Plan (04/23/2023 11:54 AM EDT): -Long Goods Drier: [facility], last visit in 01/18/23 -Discontinued Plaquenil -referred to orthopedist and paperhanger and painter -still taking hydroxychloroquine for possible inflammatory arthritis (Hx LAZARO and RF positive) -Patient was interested in CBD treatment previously -Pt has tried physical therapies several times -patient is attending acupuncture. -Encouraged to try Taichi and Yoga as recommended -Cont attending Acupuncture, since doing well. Assessment & Plan (02/08/2023 1:19 PM EDT): -Long Goods Drier: [facility], last visit in 01/18/23 -Discontinued Plaquenil -referred to orthopedist and paperhanger and painter -still taking hydroxychloroquine for possible inflammatory arthritis (Hx LAZARO and RF positive) -Patient was interested in CBD treatment previously -Pt has tried physical therapies several times -patient is attending acupuncture. -Encouraged to try Taichi and Yoga as recommended -Cont attending Acupuncture, since doing well. Chronic type B viral hepatitis 03/25/2014 Assessment & Plan (02/13/2025 1:20 PM EDT): - Hepatitis E antibody reactive, Hep E antigen negative. - Viral load has been small and antiviral medication has not been indicated - Abd US in May 2023 unremarkable. - Abd CT in May 2024 showed no liver abnormality - 04/24/23 Hep B DNA 60 - 03/18/24 Hep B DNA 48 - recent AST/ALT were slightly elevated - following with GI - recheck lab prior to next visit Assessment & Plan (11/11/2024 12:37 PM EST): [...] US Depressive disorder 02/24/2014 Assessment & Plan (02/11/2025 1:44 AM EDT): - behavioral health service provider: Dr. Amaya - recommended to discuss with adjusting medications / reducing medications due to polypharmacy - Pt was advised to stop Prazosin due to hypotension. Assessment & Plan (11/21/2024 12:28 PM EST): [...] 12:27 PM EST): Behavioral health service provider: [facility], Dr. Amaya Continue current medication and treatment plan per Dr. Amaya Asthma 02/19/2014 Assessment & Plan (11/11/2024 12:36 PM EST): - Seen by her cost recovery technician in Aug 2015. - well-controlled recently - change Flovent to Asmanex - continue montelukast - continue albuterol HFA and DuoNeb prn as rescue. - consider another pulmonary fxn test or sleep study if pt continue to has dyspnea - follow up in 3-4 mo Assessment & Plan (07/22/2024 9:56 AM EDT): - Seen by her cost recovery technician in Aug 2015. - well-controlled recently - change Flovent to Asmanex - continue montelukast - continue albuterol HFA and DuoNeb prn as rescue. - consider another pulmonary fxn test or sleep study if pt continue to has dyspnea - follow up in 3-4 mo Assessment & Plan (03/18/2024 9:25 AM EDT): - Seen by her cost recovery technician in Aug 2015. - well-controlled recently - change Flovent to Asmanex - continue montelukast - continue albuterol HFA and DuoNeb prn as rescue. - consider another pulmonary fxn test or sleep study if pt continue to has dyspnea - follow up in 3-4 mo Assessment & Plan (12/24/2023 5:37 AM EST): - Seen by her cost recovery technician in Aug 2015. - well-controlled recently - change Flovent to Asmanex - continue montelukast - continue albuterol HFA and DuoNeb prn as rescue. - consider another pulmonary fxn test or sleep study if pt continue to has dyspnea - follow up in 3-4 mo Assessment & Plan (04/30/2023 7:31 PM EDT): - Seen by her cost recovery technician in Aug 2015. - well-controlled recently - continue Flovent to 2 puff twice daily and Singulair as maintenance. - continue albuterol HFA and DuoNeb prn as rescue. - consider another pulmonary fxn test or sleep study if pt continue to has dyspnea - follow up in 3-4 mo Assessment & Plan (02/08/2023 1:35 PM EDT): Seen by her cost recovery technician in Aug 2015. increase Flovent to 2 puff twice daily and Singulair as maintenance. Continue albuterol HFA and DuoNeb prn as rescue. -consider another pulmonary fxn test or sleep study if pt continue to has dyspnea Allergic rhinitis 02/19/2014 Assessment & Plan (12/24/2023 5:54 AM EST): - continue montelukast and antihistamine Constipation 08/15/2013 Assessment & Plan (11/11/2024 12:36 PM EST): Following with [facility] GI Fiber rich diet Continue Dulcolax and Linzess Assessment & Plan (12/24/2023 5:45 AM EST): Following with [facility] GI Fiber rich diet Continue Dulcolax and [...] Plan (11/11/2024 12:37 PM EST): -Following with [facility] GI, last seen in Oct 2023 -Continue Dexilant as prescribed by GI Assessment & Plan (12/24/2023 5:46 AM EST): -Following with [facility] GI, last seen in Oct 2023 -Continue Dexilant as prescribed by GI Assessment & Plan (02/18/2023 7:29 AM EDT): -Following with [facility] GI, last seen in Oct 2022 -Continue [...] Encounters Date Type Department Care Team Description 02/18/2025 Telephone [facility] [address] [place] [phone] Maryana Winkler MD 02/09/2025 3:00 PM EDT Office Visit [facility] [address] [place] [id number] Maryana Winkler MD Chronic nonintractable headache, unspecified headache type (Primary Dx); Transaminitis; Chronic type B viral hepatitis (CMS/HCC); Migraine without aura and without status migrainosus, not intractable; Depressive disorder; Hypotension, unspecified hypotension type; Hx of anaphylactic shock 02/09/2025 Travel 02/09/2025 Telephone [facility] [place] [address] Maryana Winkler MD 02/09/2025 Telephone [facility] [place] [address] Delia Almazan, INSTRUMENT TECHNICIAN HELPER Follow-up 02/09/2025 Telephone [facility] [place] [address] Maryana Winkler MD Appointment Request 02/04/2025 4:00 PM EDT Office Visit [facility] [address] Harinder Coleman MD Shortness of breath at rest (Primary Dx) 02/04/2025 Orders Only GENERIC EXTERNAL DATA DEPARTMENT Provider, Generic External Data 01/28/2025 2:30 PM EDT Office Visit [facility] [place] [address] Yanni Momin ANP Anaphylaxis, subsequent encounter (Primary Dx); Food allergy; Hospital discharge follow-up; Hypotension, unspecified hypotension type; Migraine without aura and without status migrainosus, not intractable; Dyspnea on exertion; Elevated glucose level 01/28/2025 Travel 01/22/2025 Refill [facility] [place] [address] Tosin Stinson, PharmD 01/19/2025 Telephone [facility] [place] [address] Maryana Winkler MD Appointment Request 01/19/2025 Telephone [facility] [place] [phone] Maryana Winkler MD 01/11/2025 Orders Only [facility] [place] [address] Maryana Winkler MD Acute right ankle pain 01/10/2025 Orders Only GENERIC EXTERNAL DATA DEPARTMENT Provider, Generic External Data 12/06/2024 Refill [facility] [place] [address] Maryana Winkler MD 12/04/2024 Refill [facility] [address] [facility], [place] [phone] Maryana Winkler MD Dyslipidemia 11/28/2024 Travel from Last 3 Months Immunizations Name [...] housing situation today? I have aki diana 01/28/[address] you li [...] Sign Reading Time Taken Comments Blood Pressure 117/72 02/09/2025 2:59 PM EDT Pulse 62 02/09/2025 2:59 PM EDT Temperature 36.2 ??C (97.2 ??F) 02/09/2025 2:59 PM ED T Respiratory Rate 16 02/09/2025 2:59 PM EDT Oxygen Saturation 98% 02/09/2025 2:59 PM EDT Inhaled Oxygen Concentration - - Weight 53.7 kg (118 lb 6.4 oz) 02/09/2025 2:59 P M EDT Height 149.9 cm (4' 11 ) 01/28/2025 2:23 PM EDT Body Mass Index 23.91 01/28/2025 2:23 PM EDT Plan of Treatment Upcoming Encounters Date Type Department Care Team (Late st Contact Info) Description 04/09/2025 11:00 AM EDT Office Visit [facility] [address] [place], [place] [phone] Werner Henryaris [address] [place] [address] 11/30/2025 9:00 AM EST Medication Management [facility] [address], [place] [phone] Health Maintenance Due Date Last Done Comments [...] 06/07/2024 12/07/2023, , 03/23/2022, Additional history exists COVID-19 Vaccine ( season) 2024 12/18/2023, 12/14/2022, 02/21/2022, Additional history exists Dental Prophylaxis 01/13/2025 07/15/2024, 0 12/07/2023, 06/05/2023, Additional history exists Pap Smear 01/16/2025 01/16/2022 Diagnostic Breast Imaging 04/27/20252023, 04/29/2024, 04/03/2023 Alcohol/Substance Use Screening 11/11/2025 11/11/2024 Depression Screening 01/28/2026 01/28/2025, 01/29/20 25 SDOH Screening 01/28/2026 01/28/2025 Tobacco Screening 02/04/2026 02/04/2025 Colonoscopy 2026 2016 Colorectal Cancer Screening 2026 [...] Procedure Name Priority Date/Time Associated Diagnosis Comments XR CHEST 2 VIEWS Routine 02/04/2025 5:59 PM EDT HIGH SENSITIVITY TROPONIN I Routine 02/04/2025 5:36 PM EDT B TYPE NATRIURETIC PEPTIDE (BNP) Routine 02/04/2025 5:36 PM EDT COMPREHENSIVE METABOLIC PANEL Routine 02/04/2025 5:36 PM EDT CBC WITH AUTO DIFFERENTIAL Routine 02/04/2025 5:36 PM EDT SARS COV2/INFLUENZA A/B AND RSV RNA QL NAAT Routine 02/04/2025 5:36 PM EDT B TYPE NATRIURETIC PEPTIDE (BNP) Routine 01/29/2025 8:31 AM EDT Dyspnea on exertion HEMOGLOBIN A1C Routine 01/29/2025 8:31 AM EDT Elevated glucose level CBC WITH AUTO DIFFERENTIAL Routine 01/29/2025 8:31 AM EDT Dyspnea on exertion MR BRAIN WO CONTRAST Routine 01/14/2025 6:[address] HEAD STROKE WO CONTRAST Routine 01/14/2025 3:42 PM EST CTA HEAD STROKE W AND WO CONTRAST Routine 01/14/2025 3:40 PM EST C-REACTIVE PROTEIN Routine 01/10/2025 11 :09 AM EST BASIC METABOLIC PANEL Routine 01/10/2025 11:09 AM EST CBC WITH AUTO DIFFERENTIAL Routine 01/10/2025 11:09 AM EST HM MAMMOGRAPHY Routine 10/27/2024 10:28 AM EST [...] Recently Relevant to Health Maintenance Results * XR Chest 2 Views (02/04/2025 5:59 PM EDT) Anatomical Region Laterality Modality Chest Radiographic Jalyn ging 02/04/2025 5:59 PM EDT Narrative 02/04/2025 6:00 PM EDT ? [facility] ?[address] ?[place] [address] ?XRay Report ? Signed ? Patient: Neifa,Tiffany M ?MR#: [id number] ?? 91 ? : 1965 ?Acct:[id number] ? Age/Sex: 59 / F ?ADM Date: 03/26/25 ? Loc: HO.ED ? Attending Dr: ? Ordering Physician: Neftali Osborn ?? Date of Service: 02/04/25 ?? Procedure(s): XR chest 2V ?? Accession Number(s): [id number] ? cc: Neftali Osborn; Maryana Winkler MD ? CLINICAL HISTORY: pain ? 2 views of the chest. ? Findings: ?? Heart size is normal. There is no consolidation. No pleural effusion is ?? seen. ? Impression: ?? No acute abnormalities. ? This document has been electronically signed by: Levi Menezes MD on ?? 02/04/2025 17:59:15 ? Dictated By: ?Elia Trevino MD ? Signed By: ?<Electronically signed by Elia Trevino MD in OV> ?02/04/25 1800 ? DD/ 1759 ? TD/TT: 02/04/25 175 ? Brass Sorter: ? Procedure Note Dontiffanie, Image - 02/04/2025 [place] [address] XRay Report Signed Patient: Tiffany Vergara MMR#: [id number] 91 : 1965Acct:[id number] Age/Sex: 59 / FADM Date: 02/04/25 Loc: .ED Attending Dr: Ordering Physician: Neftali Osborn Date of Service: 02/04/25 Procedure(s): XR chest 2V Accession Number(s): [id number] cc: Neftali Osborn; Maryana Winkler MD CLINICAL HISTORY: pain 2 views of the chest. Findings: Heart size is normal. There is no consolidation. No pleural effusion is seen. Impression: No acute abnormalities. This document has been electronically signed by: Levi Menezes MD on 02/04/2025 17:59:15 Dictated By: Elia Trevino MD Signed By: <Electronically signed by Elia Trevino MD in OV> 02/04/25 1800 DD/ 58 TD/TT: 02/04/251758 Brass Sorter: [facility] External Provider IMG XR PROCEDURES Final Result * High Sensitivity Troponin I (02/04/2025 5:36 PM EDT) Pathologist [facility] TROPONIN I HIGH SENSITIVITY <2.7 <3.5 - 17.0 ng/L [facility] Comment:The Santos high sens itivity Troponin-I results should beused in conjunction with other diagnostic information suchas ECG, clinical observations and information, and patientsymptoms to aid in the diagnosis of [place]. 02/04/2025 5:36 PM EDT 02/04/2025 5:41 PM EDT Generic External Data Provider LAB BLOOD ORDERAB LES Final Result [facility] [address] [place] [address] [phone] * SARS-CoV-2 RNA, Influenza A/B, and RSV RNA, Ql NAAT (02/04/2025 5:36 PM EDT) Pathologist [facility] Influenza A PCR NEGATIVE Negative [facility] Influenza B PCR NEGATIVE Negative [facility] Resp Syncy Virus RNA Qual PCR NEGATIVE Negative [facility] SARS COV2 PCR NEGATIVE Negative [facility] Comment:All test results mus t be correlated with clinical findings.Negative results do not preclude SARS-CoV2, influenza Avirus, influenza B virus and/or RSV infectionand should not be used as the sole basis for treatment orother patient management decisions. Negative results must becombined with clinical observations, patient history, andepidemiological information.This test has not been evaluated for monitoring treatment ofinfection.This test has been authorized by the FDA under an EmergencyUse Authorization (EUA) for use by authorized laboratories.Testing performed on the [employer] GeneXpert utilizingreal-time RT-PCR.All SARS CoV2 and positive influenza A/B results arereported to [facility]. 02/04/2025 5:36 PM EDT 02/04/2025 5:41 PM EDT us Generic External Data Provider LAB MICROBIOLOGY - GENERAL ORDERABLES Final Result [facility] [address] [place] [address] [phone] * CBC auto differential (02/04/2025 5:36 PM EDT) Only the most recent of3 resultswithin the time period is included. White Blood Count 6.2 4.8 - 10.8 X10*3/uL [facility] Red Blood Count 4.69 4.20 - 5.50 X10*6/uL [facility] Hemoglobin 14.3 12.0 - 16.0 g/dl [facility] Hematocrit 41.7 37.0 - 47.0 % [facility] Mean Corpuscular Volume 88.9 80.0 - 98.0 fL [facility] Mean Corpuscular Hemoglobin 30.5 27.0 - 33.0 pg [facility] Mean Corpuscular HGB Conc 34.3 31.0 - 35.0 g/dl [facility] Red Cell Distribution Width 13.1 11.0 - 16.0 % [facility] Platelet Count 222 160 - 400 X10*3/uL [facility] Mean Platelet Volume 10.1 9.4 - 12.3 fL [facility] Neutrophils Percent Auto 51.0 45 - 73 % [facility] Imm Gran Pct Auto 0.2 0.0 - 0.4 % [facility] Lymphocytes Percent Auto 37.3 20 - 40 % [facility] Monocytes Percent Auto 7.1 2 - 11 % [facility] Eosinophils Percent Auto 3.4 0 - 4 % [facility] Basophils Percent Auto 1.0 0 - 2 % [facility] NRBC Pct Auto 0.0 0.0 - 0.2 /100WBC [facility] Neutrophils Absolute Auto 3.2 2.0 - 8.3 x10*3/uL [facility] Imm Gran Abs Auto 0.01 0.00 - 0.03 X10*3/uL [facility] Lymphocytes Absolute Auto 2.3 1.2 - 4.9 X10*3/uL [facility] Monocytes Absolute Auto 0.4 0.1 - 1.2 X10*3/uL [facility] Eosinophils Absolute Auto 0.2 0.0 - 0.4 X10*3/uL [facility] Basophils Absolute Auto 0.1 0.0 - 0.2 X10*3/uL [facility] NRBC Abs Auto 0.000 0.0 - 0.012 X10*3/uL [facility] 02/04/2025 5:36 PM EDT 02/04/2025 5:41 PM EDT Generic External Data Provider LAB BLOOD ORDERAB LES Final Result Performing Organization Address [facility] Co de Phone Number [facility] [address] [place] [phone] * B Type Natriuretic Peptide (BNP) (02/04/2025 5:36 PM EDT) Only the most recent of2 resultswithin the time period is included. Pathologist [facility] B Type Natriuretic Peptide 14 <100 pg/mL [facility] 02/04/2025 5:36 PM EDT 02/04/2025 5:41 PM EDT Generic External Data Provider LAB BLOOD ORDERAB LES Final Result Performing Organization Address [facility] de Phone Number [facility] [address] [place] [phone] * (ABNORMAL) Comprehensive Metabolic Panel (02/04/2025 5:36 PM EDT) Pathologist [facility] Sodium 139 135 - 145 mmol/L [facility] Potassium 4.1 3.3 - 5.1 mmol/L [facility] Chloride 104 96 - 108 mmol/L [facility] Carbon Dioxide 26 22 - 29 mmol/L [facility] Anion Gap 13 12 - 20 [facility] Urea Nitrogen (BUN) 15 9 - 16 mg/dL [facility] Creatinine, Serum 0.74 0.5 - 1.4 mg/dL [facility] Creatinine Clr Calc Pharmacy 63.9 [facility] Comment:Provided height and weight: 157.48 cm,53.07 kg.eGFR (calculated from the MDRD study equation) and eCrCl(calculated from the Cockcroft-Gault equation) are based ondifferent parameters and may not yield comparable results.If eCrCl result is absurd, please check patient'sheight/weight. Estimated Glomerular Filt Rate >60 [facility] Comment:Chronic Kidney Disea se: Estimated GFR < 60 mL/min/1.56k2Dhyeza Kidney Disease: Estimated GFR < 15 mL/min/1.73m2 Glucose 106 60 - 115 mg/dL [facility] Calcium 9.6 8.4 - 10.2 mg/dL [facility] Bilirubin, Total 0.3 0.0 - 1.0 mg/dL [facility] Aspartate Amino Transferase 33(H) 5 - 31 U/L [facility] Alanine Aminotransferase 32(H) 0 - 31 U/L [facility] Total Protein 8.1(H) 6.5 - 8.0 g/dL [facility] Albumin Level 4.3 3.5 - 5.0 g/dL [facility] Alkaline Phosphatase 87 39 - 117 U/L [facility] 02/04/2025 5:36 PM EDT 02/04/2025 5:41 PM EDT us Generic External Data Provider LAB BLOOD ORDERAB LES Final Result [facility] [address] [place] [phone] * Hemoglobin A1c (01/29/2025 8:31 AM EDT) Hemoglobin A1c 5.4 <6.0 % [facility] Comment:Hemoglobin A1C Refer ence Range Adults: 4.8 - 6.0 % Non diabetic: < 6.0 % Goal: < 7.0 %Additional Action Suggested: > 8.0 %Note: Hemoglobin A1c results are invalid for patients with abnormal amounts of HbF. Blood transfusions may impact the HbA1c concentration in the patient sample. Estimated Average Glucose 108 mg/dL [facility] Comment:eAG = Estimated ave rage glucose which is %A1C expressed asaverage glucose, using the formula of the F2H-ZbgaqxlSrbuvkv Glucose study (ADAG), Diabetes Care, Vol.31,#8,2007 Blood Venous blood specimen / Unknown 01/29/2025 8:31 AM EDT 01/29/2025 11:21 AM EDT us Yanni Momin [facility] BLOOD ORDERABLES Final Resul t [facility] [address] [place] [phone] * MR Brain w/o Contrast (01/14/2025 6:32 PM EST) Anatomical Region Laterality Modality Brain Magnetic Resonan ce 01/14/2025 6:32 PM EST Narrative 01/14/2025 6:34 PM EST ? [facility] ?[address] ?[place] [address] ? Magnetic Resonance Report ? Signed ? Patient: Tiffany Vergara ?MR#: [id number] ?? 91 ? : 1965 ?Acct:[id number] ? Age/Sex: 59 / F ?ADM Date: 01/10/25 ? Loc: [facility] ?459-1 ? Attending Dr: Rsosi TORRES ? Ordering Physician: Rossi Rao ?? Date of Service: 01/14/25 ?? Procedure(s): MR head/brain wo con ?? Accession Number(s): [id number] ? cc: Rossi Rao; Maryana Winkler MD ? CLINICAL HISTORY: ?tia word finding difficulty aphasia ? MR of the brain without contrast ? Comparison: CT/SR - CT ANGIO HEAD NECK STROKE - 01/14/25 15:40 EST ?? CT/NC/SR - CT HEAD FOR STROKE - 01/14/25 15:35 EST ?? CT/SR - CT HEAD FOR STROKE [id number] - 03/08/17 18:47 EDT ? Findings: ?? No acute infarction, hemorrhage, mass-effect or herniation. ?? No hydrocephalus. ?? Increased signal intensity is seen in the deep and periventricular white ?? matter on the T2/FLAIR sequences, which most likely represents the sequela ?? of mild chronic small vessel ischemic disease. ?? No extra-axial fluid collection or mass. ?? Unremarkable sella. ?? Intact flow voids. ?? Normal orbits. ?? There is fluid signal in a few left mastoid air cells which could be ?? secondary to effusion. Mastoiditis is considered less likely. Otherwise ?? clear paranasal sinuses and mastoid air cells. ?? Unremarkable osseous structures. ? Impression: ?? No acute infarction. ? This document has been electronically signed by: Emely Ramírez MD ?? on 01/14/2025 18:32:17 ? Dictated By: ?Emely Bhakta MD ? Signed By: ?<Electronically signed by Emely Bhakta MD in OV> ? 01/14/25 1833 ? DD/ 1832 ? TD/TT: 01/14/25 1832 ? Brass Sorter: ? Procedure Note [place], La - 01/14/2025 [place] [address] Magnetic Resonance Report Signed Patient: Tiffany Vergara MMR#: [id number] 91 : 1965Acct:[id number] Age/Sex: 59 / FADM Date: 01/10/25 Loc: [facility] 459-[address]: Rossi TORRES Ordering Physician: Rossi Rao Date of Service: 01/14/25 Procedure(s): MR head/brain wo con Accession Number(s): [id number] cc: Rossi Rao; Maryana Winkler MD CLINICAL HISTORY: ?tia word finding difficulty aphasia MR of the brain without contrast Comparison: CT/SR - CT ANGIO HEAD NECK STROKE - 01/14/25 15:[address]/NC/SR - CT HEAD FOR STROKE - 01/14/25 15:[address]/SR - CT HEAD FOR STROKE [id number] - 03/08/17 18:47 EDT Findings: No acute infarction, hemorrhage, mass-effect or herniation. No hydrocephalus. Increased signal intensity is seen in the deep and periventricular white matter on the T2/FLAIR sequences, which most likely represents the sequela of mild chronic small vessel ischemic disease. No extra-axial fluid collection or mass. Unremarkable sella. Intact flow voids. Normal orbits. There is fluid signal in a few left mastoid air cells which could be secondary to effusion. Mastoiditis is considered less likely. Otherwise clear paranasal sinuses and mastoid air cells. Unremarkable osseous structures. Impression: No acute infarction. This document has been electronically signed by: Emely Ramírez MD on 01/14/2025 18:32:17 Dictated By: Emely Bhakta MD Signed By: <Electronically signed by Emely Bhakta MD in OV> 01/14/251832 DD/ 31 TD/TT: 01/14/251831 Brass Sorter: [facility] External Provider IMG MRI PROCEDURES Edited Result - Final * CT Head Stroke w/o Contrast (01/14/2025 3:42 PM EST) Anatomical Region Laterality Modality Computed Tomogra phy 01/14/2025 3:42 PM EST Narrative 01/14/2025 3:59 PM EST ? [facility] ?[address] ?[place] [address] ? CT Scan Report ? Signed ? Patient: Tiffany Vergara ?MR#: [id number] ?? 91 ? : 1965 ?Acct:[id number] ? Age/Sex: 59 / F ?ADM Date: 01/10/25 ? Loc: [facility] ?459-1 ? Attending Dr: Rossi TORRES ? Ordering Physician: Rossi Rao ?? Date of Service: 01/14/25 ?? Procedure(s): CT head for STROKE ?? Accession Number(s): [id number] ? cc: Rossi Rao; Maryana Winkler MD ? Report Number: ?? [id number]: Total DLP = ??557.00 mGy-cm ?? EXAMINATION: ?? CT HEAD WITHOUT CONTRAST (STROKE PROTOCOL) ? CLINICAL INFORMATION: ?? Stroke protocol. ? COMPARISON: ?? None available. ? TECHNIQUE: ?? Contiguous axial imaging was performed from the skull base to vertex ?? without intravenous administration of contrast. ? This CT examination was performed using dose optimization techniques as ?? appropriate, variously including the following: ?? *Automated exposure control ?? *Adjustment of mA and/or kV according to patient size (this includes ?? techniques or standardized protocols for targeted exams where dose is ?? matched to indication/reason for exam; i.e. extremities or head) ?? *Use of iterative reconstruction technique ?? DLP: 557 mGy centimeter. ? FINDINGS: ?? Limited by patient's positioning on the CT scanner. ?? No acute intracranial hemorrhage, mass effect, midline shift, ?? hydrocephalus or herniation. ?? Peterson-white matter differentiation is normal. ?? Calcified plaques in the cavernous supracavernous segments both ICA. ?? Posterior cranial fossa contents demonstrated no acute intracranial ?? hemorrhage or mass effect. ?? Sellar/suprasellar region demonstrated no gross masses. ?? No air-fluid levels in the included paranasal sinuses. ?? Poor pneumatization left frontal sinus. ?? Tympanic cavities and mastoid air cells are aerated. ? CT/CT head for STROKE ?? IMPRESSION: ?? No acute intracranial hemorrhage or acute brain abnormality by CT. ? This critical result was discussed with physician assistant toddler teacher Rossi ?? Ranjit gramajo at 3:54 PM hours on January 14, 2025.. It was ?? ascertained that the content and urgency of the report was understood ?? at the time of direct communication. ? Electronically signed by: ??Paul Whitney MD ??01/14/2025 03:56 PM ?? EST ? Dictated By: ?Paul Godwin MD ? Signed By: ?<Electronically signed by Paul Almazan MD in OV> ? 01/14/25 1556 ? DD/ 1542 ? TD/TT: 01/14/25 1542 ? Brass Sorter: ? Procedure Note La Murphy - 01/14/[address] [address] [address] Scan Report Signed Patient: Tiffany Vergara [facility]#: [id number] 91 : 1965Acct:[id number] Age/Sex: 59 / FADM Date: 01/10/25 Loc: [facility] 459-[address]: Rossi TORRES Ordering Physician: Rossi Rao Date of Service: 01/14/25 Procedure(s): CT head for STROKE Accession Number(s): [id number] cc: Rossi Rao; Maryana Winkler MD Report Number: [id number]: Total DLP = 557.00 mGy-cm EXAMINATION: CT HEAD WITHOUT CONTRAST (STROKE PROTOCOL) CLINICAL INFORMATION: Stroke protocol. COMPARISON: None available. TECHNIQUE: Contiguous axial imaging was performed from the skull base to vertex without intravenous administration of contrast. This CT examination was performed using dose optimization techniques as appropriate, variously including the following: *Automated exposure control *Adjustment of mA and/or kV according to patient size (this includes techniques or standardized protocols for targeted exams where dose is matched to indication/reason for exam; i.e. extremities or head) *Use of iterative reconstruction technique DLP: 557 mGy centimeter. FINDINGS: Limited by patient's positioning on the CT scanner. No acute intracranial hemorrhage, mass effect, midline shift, hydrocephalus or herniation. Peterson-white matter differentiation is normal. Calcified plaques in the cavernous supracavernous segments both ICA. Posterior cranial fossa contents demonstrated no acute intracranial hemorrhage or mass effect. Sellar/suprasellar region demonstrated no gross masses. No air-fluid levels in the included paranasal sinuses. Poor pneumatization left frontal sinus. Tympanic cavities and mastoid air cells are aerated. CT/CT head for STROKE IMPRESSION: No acute intracranial hemorrhage or acute brain abnormality by CT. This critical result was discussed with physician assistant toddler teacher Rossi gramajo at 3:54 PM hours on January 14, 2025.. It was ascertained that the content and urgency of the report was understood at the time of direct communication. Electronically signed by: Paul Whitney MD 01/14/2025 03:56 PM [facility] Dictated By: Paul Godwin MD Signed By: <Electronically signed by Paul Almazan MDin OV> 01/14/25 1556 DD/ 1542 TD/TT: 01/14/25 1542 Brass Sorter: us [facility] External Provider IMG CT PROCEDURES Edited Result - Final * CTA Head Stroke w/ and w/o Contrast (01/14/2025 3:40 PM EST) Anatomical Region Laterality Modality Computed Tomogra phy 01/14/2025 3:40 PM EST Narrative 01/14/2025 4:15 PM EST ? [facility] ?[address] ?[place], [place] [address] ? CT Scan Report ? Signed ? Patient: Tiffany Vergara Parul ?MR#: [id number] ?? 91 ? : 1965 ?Acct:[id number] ? Age/Sex: 59 / F ?ADM Date: 01/10/25 ? Loc: [facility] ?459-1 ? Attending Dr: Rossi TORRES ? Ordering Physician: Rossi Rao ?? Date of Service: 01/14/25 ?? Procedure(s): CT angio head neck STROKE ?? Accession Number(s): [id number] ? cc: Rossi Rao; Maryana Winkler MD ? Report Number: ?? [id number]: Total DLP = ??657.00 mGy-cm ?? EXAMINATION: ? CTA NECK WITH CONTRAST (STROKE) ?? CTA BRAIN WITH CONTRAST (STROKE) ? CLINICAL INFORMATION: ? Suspect acute stroke. Assess for major vessel occlusion. ??Please call ?? report. ? COMPARISON: ? None available. ? TECHNIQUE: ?? CTA of the head and neck was performed in the axial plane from the ?? mediastinum to the skull vertex using 70 mL Omnipaque 350 intravenous ?? contrast. ??Additional reformatted multiplanar images including maximum ?? intensity projection MIP images are generated on the CT workstation. ? This CT examination was performed using dose optimization techniques as ?? appropriate, variously including the following: ?? *Automated exposure control ?? *Adjustment of mA and/or kV according to patient size (this includes ?? techniques or standardized protocols for targeted exams where dose is ?? matched to indication/reason for exam; i.e. extremities or head) ?? *Use of iterative reconstruction technique ? FINDINGS: ?? The degree of stenosis determined by criteria similar to NASCET. ? Brain: ?? There is no enhancing mass, edema or midline shift. The lateral ?? ventricles are symmetrical in size and configuration without ?? enlargement. No calvarial abnormality seen. Bilateral paranasal sinuses ?? and mastoid air cells are well-aerated. ? UPPER CHEST CHEST AND NECK CTA: ?? Normal three-vessel branching of the aortic arch is noted the origins ?? are widely patent. The right common carotid artery of the ?? brachiocephalic and left common carotid artery of the arch are widely ?? patent. Both common carotid arteries are patent in the neck. There is ?? normal bifurcation into intellectual carotid arteries. Bilateral ?? interval carotid arteries are widely patent extending into the skull ?? base. The right vertebral artery is patent throughout its course in the ?? neck. Left vertebral artery is patent with mild tortuosity in the ?? proximal segment. There is no vascular abnormality. ? Brain CTA: ?? Both vertebral arteries are codominant and unite to form basilar artery ?? the basilar artery terminates into bilateral equal posterior cerebral ?? arteries no evidence of aneurysm or dissection seen. The small bowel ?? patent bilateral posterior tibial arteries. ? Bilateral internal carotid arteries are of normal caliber extending ?? through the skull base, petrous, cavernous and supraclinoid ICA ?? segments. Both carotid arteries bifurcate into anterior middle cerebral ?? arteries. The middle cerebral arteries continue is M1 and M2 segments ?? and are widely patent. No aneurysm or dissection seen. Anterior ?? cerebral arteries communicate via a small ventricular indicating artery. ? The major sinuses are widely patent. ? CT/CT angio head neck STROKE ?? IMPRESSION: ?? Unremarkable CTA neck and brain. ? This critical test result is communicated to: Rossi Rao at 4.11 ?? pm by tiger text ? Electronically signed by: ??Roman Warren MD ??01/14/2025 04:13 PM EST RP ? Dictated By: ?Briana,Roman S ? Signed By: ?<Electronically signed by Roman Warren MD in OV> ?01/14/25 1613 ? DD/ 1540 ? TD/TT: 01/14/25 1558 ? Brass Sorter: MSM ? Procedure Note Donotuseinterpreter, Image - 01/14/[address] [address] [address] Scan Report Signed Patient: Tiffany Vergara MMR#: [id number] 91 : 1965Acct:[id number] Age/Sex: 59 / FADM Date: 01/10/25 Loc: [facility] 459-[address]: Rossi TORRES Ordering Physician: Rossi Rao Date of Service: 01/14/25 Procedure(s): CT angio head neck STROKE Accession Number(s): [id number] cc: Rossi Rao; Maryana Winkler MD Report Number: [id number]: Total DLP = 657.00 mGy-cm EXAMINATION: CTA NECK WITH CONTRAST (STROKE) CTA BRAIN WITH CONTRAST (STROKE) CLINICAL INFORMATION: Suspect acute stroke. Assess for major vessel occlusion. Please call report. COMPARISON: None available. TECHNIQUE: CTA of the head and neck was performed in the axial plane from the mediastinum to the skull vertex using 70 mL Omnipaque 350 intravenous contrast. Additional reformatted multiplanar images including maximum intensity projection MIP images are generated on the CT workstation. This CT examination was performed using dose optimization techniques as appropriate, variously including the following: *Automated exposure control *Adjustment of mA and/or kV according to patient size (this includes techniques or standardized protocols for targeted exams where dose is matched to indication/reason for exam; i.e. extremities or head) *Use of iterative reconstruction technique FINDINGS: The degree of stenosis determined by criteria similar to NASCET. Brain: There is no enhancing mass, edema or midline shift. The lateral ventricles are symmetrical in size and configuration without enlargement. No calvarial abnormality seen. Bilateral paranasal sinuses and mastoid air cells are well-aerated. UPPER CHEST CHEST AND NECK CTA: Normal three-vessel branching of the aortic arch is noted the origins are widely patent. The right common carotid artery of the brachiocephalic and left common carotid artery of the arch are widely patent. Both common carotid arteries are patent in the neck. There is normal bifurcation into intellectual carotid arteries. Bilateral interval carotid arteries are widely patent extending into the skull base. The right vertebral artery is patent throughout its course in the neck. Left vertebral artery is patent with mild tortuosity in the proximal segment. There is no vascular abnormality. Brain CTA: Both vertebral arteries are codominant and unite to form basilar artery the basilar artery terminates into bilateral equal posterior cerebral arteries no evidence of aneurysm or dissection seen. The small bowel patent bilateral posterior tibial arteries. Bilateral internal carotid arteries are of normal caliber extending through the skull base, petrous, cavernous and supraclinoid ICA segments. Both carotid arteries bifurcate into anterior middle cerebral arteries. The middle cerebral arteries continue is M1 and M2 segments and are widely patent. No aneurysm or dissection seen. Anterior cerebral arteries communicate via a small ventricular indicating artery. The major sinuses are widely patent. CT/CT angio head neck STROKE IMPRESSION: Unremarkable CTA neck and brain. This critical test result is communicated to: Rossi Rao at 4.11 pm by tiger text Electronically signed by: Roman Warren MD 01/14/2025 04:13 PM EST Dictated By: Roman Warren MD Signed By: <Electronically signed by Roman Warren MD in OV> 01/14/25 1613 DD/ 1540 TD/TT: 01/14/25 1558 Brass Sorter: [facility] External Provider IMG CT PROCEDURES Edited Result - Final * C-reactive Protein (01/10/2025 11:09 AM EST) C Reactive Protein 0.11 < or = 0.50 mg/dL [facility] 01/10/2025 11:0 9 AM EST 01/10/2025 11:12 AM EST Generic External Data Provider LAB BLOOD ORDERAB LES Final Result [facility] [address] [place] [phone] * (ABNORMAL) Basic Metabolic Panel (01/10/2025 11:09 AM EST) Sodium 142 135 - 145 mmol/L [facility] Potassium 3.6 3.3 - 5.1 mmol/L [facility] Chloride 111(H) 96 - 108 mmol/L [facility] Carbon Dioxide 22 22 - 29 mmol/L [facility] Anion Gap 13 12 - 20 [facility] Urea Nitrogen (BUN) 21(H) 9 - 16 mg/dL [facility] Creatinine, Serum 0.71 0.5 - 1.4 mg/dL [facility] Creatinine Clr Calc Pharmacy 62.2 [facility] Comment:Provided height and weight: 149.86 cm,52.2 kg.eGFR (calculated from the MDRD study equation) and eCrCl(calculated from the Cockcroft-Gault equation) are based ondifferent parameters and may not yield comparable results.If eCrCl result is absurd, please check patient'sheight/weight. Estimated Glomerular Filt Rate >60 [facility] Comment:Chronic Kidney Disea se: Estimated GFR < 60 mL/min/1.24g2Gdogkz Kidney Disease: Estimated GFR < 15 mL/min/1.73m2 Glucose 202(H) 60 - 115 mg/dL [facility] Calcium 8.4 8.4 - 10.2 mg/dL [facility] 01/10/2025 11:0 9 AM EST 01/10/2025 11:12 AM EST us Generic External Data Provider LAB BLOOD ORDERAB LES Final Result [facility] [address] [place] [address] [phone] * Hm Mammography (10/27/2024 10:28 AM EST) Anatomical Region Laterality Modality Other Historical Provider HEALTH MAINTENANCE Final Result * THINPREP TIS PAP AND HPV mRNA E6/E7, CT/NG, TRICH (01/16/2022 1:29 PM EST) Chlamydia trachomatis RNA, TMA, Urogenital NOT DETECTED NOT DETECTED [facility] Clinical Information: None given [facility] COMMENT SEE COMMENT [facility] INCLUDE 234 BEDS AT THE [facility] Comment: The analytical performance characteristics of this assay, when used to test SurePath(TM) specimens have been determined by [employer]. The modifications have not been cleared or approved by the FDA. This assay has been validated pursuant to the CLIA regulations and is used for clinical purposes. ?? For additional information, please refer to https://education.Looxcie/faq/VPI558 (This link is being provided for information/ educational purposes only.) ?? COMMENT [facility] COM[facility] Comment: EXPLANATORY NOTE: ? [...] has been evaluated with computer assisted technology. [facility] Director Of Manufacturing Operations: SEE COMMENT [facility] Comment: RXB, CT(ASCP) CT screening location: [address] ??[id number] HPV nRNA E6/E7 Not Detected Not Detected [facility] Comment: Methodology: Corporate Safety Director-Mediated Amplification This assay detects E6/E7 viral messenger RNA (mRNA) from 14 high-risk HPV types (16,18,31,33,35,39,45,51,52,56,58,59,66,68). ? The analytical performance characteristics of this assay have been determined by [employer]. The modifications have not been cleared or approved by the FDA. This assay has been validated pursuant to the CLIA regulations and is used for clinical purposes. ?? For additional information, please refer to http://education.Looxcie/faq/CCX413m0 (This link if provided for information/ educational purposes only.) Interpretation/Re sult: Negative for intraepithelial lesion or malignancy. [facility] LMP: NONE GIVEN [facility] Neisseria gonorrhoeae RNA, TMA, Urogenital NOT DETECTED NOT DETECTED [facility] Prev. BX: NONE [facility]IVEN [facility] Prev. PAP: NONE [facility]IV[facility] SOURCE: None given [facility] Statement Of Adequacy: SEE COMMENT [facility] Comment: Satisfactory for evaluation. Endocervical/transformation zone component absent. Age and/or menstrual status not provided Trichomonas vaginalis, QL, TMA, PAP Vial NOT DETECTED NOT DETECTED [facility] Comment: The analytical performance characteristics of this assay have been determined by [employer]. The modifications have not been cleared or approved by the FDA. This assay has been validated pursuant to the CLIA regulations and is used for clinical purposes. ?? For additional information, please refer to http://[employer].Looxcie/ faq/Trichomonastma (This link is being provided for information/ educational purposes only.) ?? 01/16/2022 1:29 PM EST us Maryana Winkler MD LAB PATHOLOGY ORDERABLES Final R esult Performing Organization Address [facility] de Phone Number [facility] [address] * HEPATITIS C AB W/REFL TO HCV RNA, QN, PCR (10/24/2021 8:20 AM EST) HEPATITIS C ANTIBODY NON-REACT IMTIAZ NON-REACT IMTIAZ [facility] INDEX 0.02 <1.00 [facility] Comment: ?? HCV antibody was non-reactive. There is no laboratory ?? evidence of HCV infection. ?? In most cases, no further action is required. However, if recent HCV exposure is suspected, a test for HCV RNA (test code 41251) is suggested. ?? For additional information please refer to http://[employer].Looxcie/faq/ADJ09m7 (This link is being provided for informational/ educational purposes only.) ?? 10/24/2021 8:20 AM EST us Maryana Winkler MD HISTORICAL/NON ORDERABLE LABS Fi nal Result Performing Organization Address [facility] Phone Number [facility] [address] * HIV 1/2 ANTIGEN/ANTIBODY,FOURTH GENERATION W/RFL (10/24/2021 8:20 AM EST) HIV-1/2 ANTIGEN AND ANTIBODIES, 4TH GENERATION W/ REFLEX NON-REACT IMTIAZ NON-REACT IMTIAZ [facility] Comment: HIV-1 antigen and HIV-1/HIV-2 [...] ? For additional information please refer to http://[employer].Looxcie/faq/MYJ128 (This link is being provided for informational/ educational purposes only.) ? The performance of this assay has not been clinically validated in patients less than 2 years old. ?? 10/24/2021 8:20 AM EST Maryana Winkler MD LAB BLOOD ORDERABLES Final Resul t Performing Organization Address [facility] Phone Number [facility] [address] * (ABNORMAL) Colonoscopy (2016) Colonoscopy Normal(A) Normal 2016 Estee Smith [facility] MAINTENANCE Edited Result - Final from Last 3 Months or Most Recently Relevant to Health Maintenance Insurance [facility] Advance Directives Documents on File Type Date Recorded Patient Horticultural Specialty Grower Inside Expl anation HealthCare Proxy 03/12/2023 Health Care Proxy Form Care Teams Vp Patient Relationship Specialty Start Date End Date Maryana Winkler MD [address] [place] [phone] PCP - General Family Medicine 11/12/18
--- OUTSIDE RECORDS SUMMARY | 2025-02-18 16:09 | XMS_ITS | Encounter Summary ---
Author Organization [employer] Address [address] [place] [address] 7t [place] [address] Care Team Providers Care Structural Iron Erector Name Role Phone Maryana Winkler MD Primary Care Provider [phone] Reason for Visit * Reason Comments Med Refill Encounter Details Date Type Department Care Team (Late Contact Info) Description 07/23/2023 Refill [facility] [address] [place], [place] [phone] Maryana Winkler MD [address] [place] [address] Allergic rhinitis, unspecified seasonality, unspecified trigger Social [...] Description 04/09/2025 11:00 AM EDT Office Visit [facility] [address] [place], [place] [phone] Werner Henryaris [address] [place] [address] 11/30/2025 9:00 AM EST Medication Management [facility] [address] [place] [address] documented as of this encounter Visit Diagnoses Diagnosis Allergic rhinitis, unspecified seasonality, unspecified trigger documented in this encounter Additional Health Concerns Assessment Noted Time PHQ-9 Depression Total Score: 4 12/14/19 23 9:31 AM EST documented as of this encounter Care Teams Structural Iron Erector Relationship Specialty Start Date End Date Maryana Winkler MD [address] [place] [address] PCP - General Family Medicine 11/12/18 documented as of this encounter
--- OUTSIDE RECORDS SUMMARY | 2025-02-18 16:09 | XMS_ITS | Encounter Summary ---
Author Organization [employer] Address [address] [place] [address] 7t [place] [address] Care Team Providers Care Surface Plate Finisher Name Role Phone Maryana Winkler MD Primary Care Provider [phone] Encounter Details Date Type Department Care Team (Late st Contact Info) Description 05/23/2023 Orders Only [facility] [address] [place] [address] [phone] Provider, MD Cristopher Social History Tobacco Use [...] Description 04/09/2025 11:00 AM EDT Office Visit [facility] [address] [place], [place] [phone] Enid Henry [address] [place] [address] 11/30/2025 9:00 AM EST Medication Management [facility] [address] [place] [address] documented as of this encounter Procedures Procedure [...] EST) Vitamin D, 25-OH, D2 6 ng/mL [facility] Comment:This test was develo ped and its analytical performancecharacteristics have been determined by [employer] [place]. It hasnot been cleared or approved by the U.S. Food and DrugAdministration. This assay has been validated pursuantto the CLIA regulations and is used for clinicalpurposes.THIS TEST WAS PERFORMED AT:[employer] [id number] [place] [id number] WELLS MD,PHD Vitamin D, 25-OH, D3 20 ng/mL [facility] Comment:This test was develo ped and its analytical performancecharacteristics have been determined by [employer] [place], [place]. It hasnot been cleared or approved by the U.S. Food and DrugAdministration. This assay has been validated pursuantto the CLIA regulations and is used for clinicalpurposes. Vitamin D, 25-OH, Total 26(A) 30 - 100 ng/mL [facility] Comment:Vitamin D, 25-Hydrox y reports [...] = 30 ng/mL.For additional information, please refer tohttp://education.MolecularMD/faq/WPA843(This link is being provided for informational/educational purposes only.) 01/16/2024 8:44 AM EST 01/16/2024 11:23 AM EST us Generic External Data Provider LAB BLOOD ORDERAB LES Final Result Performing Organization Address [facility]/ZIP Co de Phone Number [facility] [address] [place] [phone] * Urine electrolytes (12/20/2023 10:49 PM EST) Chloride Urine Random <20.0 mmol/L [facility] Sodium Urine Random 44.0 mmol/L [facility] Potassium Urine Random 7.7 mmol/L [facility] 12/20/2023 10:4 9 PM EST 12/20/2023 10:53 PM EST us Generic External Data Provider LAB URINE ORDERAB LES Final Result Performing Organization Address [facility]/ZIP Co de Phone Number [facility] [address] [place] [phone] * Urinalysis w/reflex microscopic (12/20/2023 10:49 PM EST) Pathologist [facility] Color Urine Yellow [facility] Appearance Urine Clear [facility] PH 8.0 5.0 - 9.0 [facility] Glucose Urine UA Negative Negative mg/dL [facility] Urine Blood Negative Negative [facility] Specific [place] - Urine 1.010 1.005 - 1.025 [facility] Urine Protein Negative Neg-Trace mg/dL [facility] Urine Ketones Negative Negative mg/dL [facility] Nitrite Urine Negative Negative [facility] Leukocyte Esterase Urine Negative Negative [facility] 12/20/2023 10:4 9 PM EST 12/20/2023 10:53 PM EST Narrative [facility] - 12/20/2023 10:56 PM EST [id number], Clean Catch Generic External Data Provider LAB URINE ORDERAB LES Final Result Performing Organization Address [facility]/ZIP Co de Phone Number [facility] [address] [place] [phone] * Electrolyte Panel (12/20/2023 10:40 PM EST) [facility] Sodium 139 135 - 145 mmol/L [facility] Potassium 3.4 3.3 - 5.1 mmol/L [facility] Chloride 103 96 - 108 mmol/L [facility] Carbon Dioxide 27 22 - 29 mmol/L [facility] Anion Gap 12 12 - 20 [facility] 12/20/2023 10:4 0 PM EST 12/20/2023 10:43 PM EST us Generic External Data Provider LAB BLOOD ORDERAB LES Final Result Performing Organization Address [facility]/ZIP Co de Phone Number [facility] [address] [place] [address] [phone] * Magnesium (12/20/2023 4:46 PM EST) Magnesium 2.1 1.6 - 2.6 mg/dL [facility] 12/20/2023 4:46 PM EST 12/20/2023 4:49 PM EST us Generic External Data Provider LAB BLOOD ORDERAB LES Final Result [facility] [address] [place] [address] [phone] * (ABNORMAL) Comprehensive Metabolic Panel (12/20/2023 4:46 PM EST) Sodium 136 135 - 145 mmol/L [facility] Potassium 2.6(LL) 3.3 - 5.1 mmol/L [facility] Comment:Critical value for t est(s): POTS Results called to and readback by: JAYLAN Person calling: SALIERD Date: 12/20/23 Time:1707 Chloride 98 96 - 108 mmol/L [facility] Carbon Dioxide 28 22 - 29 mmol/L [facility] Anion Gap 13 12 - 20 [facility] Urea Nitrogen (BUN) 10 9 - 16 mg/dL [facility] Creatinine, Serum 0.84 0.5 - 1.4 mg/dL [facility] Creatinine Clr Calc Pharmacy 49.1 [facility] Comment:Provided height and weight: 149.86 cm,49.5 kg.eGFR (calculated from the MDRD study equation) and eCrCl(calculated from the Cockcroft-Gault equation) are based ondifferent parameters and may not yield comparable results.If eCrCl result is absurd, please check patient'sheight/weight. Estimated Glomerular Filt Rate >60 [facility] Comment:NOTE: For -Am erican individuals, multiply the result by 1.210.Chronic Kidney Disease: Estimated GFR < 60 mL/min/1.78j6Nhwxxf Kidney Disease: Estimated GFR < 15 mL/min/1.73m2 Glucose 155(H) 60 - 115 mg/dL [facility] Calcium 9.2 8.4 - 10.2 mg/dL [facility] Bilirubin, Total 0.4 0.0 - 1.0 mg/dL [facility] Aspartate Amino Transferase 24 5 - 31 U/L [facility] Alanine Aminotransferase 14 0 - 31 U/L [facility] Total Protein 7.3 6.5 - 8.0 g/dL [facility] Albumin Level 4.1 3.5 - 5.0 g/dL [facility] Alkaline Phosphatase 72 39 - 117 U/L [facility] 12/20/2023 4:46 PM EST 12/20/2023 4:49 PM EST us Generic External Data Provider LAB BLOOD ORDERAB LES Final Result [facility] [address] [place] [phone] [phone] * (ABNORMAL) CBC auto differential (12/20/2023 4:46 PM EST) White Blood Count 6.9 4.8 - 10.8 X10*3/uL [facility] Red Blood Count 4.79 4.20 - 5.50 X10*6/uL [facility] Hemoglobin 14.7 12.0 - 16.0 g/dl [facility] Hematocrit 41.3 37.0 - 47.0 % [facility] Mean Corpuscular Volume 86.2 80.0 - 98.0 fL [facility] Mean Corpuscular Hemoglobin 30.7 27.0 - 33.0 pg [facility] Mean Corpuscular HGB Conc 35.6(H) 31.0 - 35.0 g/dl [facility] Red Cell Distribution Width 12.7 11.0 - 16.0 % [facility] Platelet Count 158(L) 160 - 400 X10*3/uL [facility] Mean Platelet Volume 9.4 9.4 - 12.3 fL [facility] Neutrophils Percent Auto 57.1 45 - 73 % [facility] Imm Gran Pct Auto 0.1 0.0 - 0.4 % [facility] Lymphocytes Percent Auto 33.5 20 - 40 % [facility] Monocytes Percent Auto 6.8 2 - 11 % [facility] Eosinophils Percent Auto 1.9 0 - 4 % [facility] Basophils Percent Auto 0.6 0 - 2 % [facility] NRBC Pct Auto 0.0 0.0 - 0.2 /100WBC [facility] Neutrophils Absolute Auto 4.0 2.0 - 8.3 x10*3/uL [facility] Imm Gran Abs Auto 0.01 0.00 - 0.03 X10*3/uL [facility] Lymphocytes Absolute Auto 2.3 1.2 - 4.9 X10*3/uL [facility] Monocytes Absolute Auto 0.5 0.1 - 1.2 X10*3/uL [facility] Eosinophils Absolute Auto 0.1 0.0 - 0.4 X10*3/uL [facility] Basophils Absolute Auto 0.0 0.0 - 0.2 X10*3/uL [facility] NRBC Abs Auto 0.000 0.0 - 0.012 X10*3/uL [facility] 12/20/2023 4:46 PM EST 12/20/2023 4:49 PM EST us Generic External Data Provider LAB BLOOD ORDERAB LES Final Result Performing Organization Address City/State/[facility] Co de Phone Number [facility] [address] [place] [phone] [phone] * US Abdomen Complete (05/23/2023 9:54 AM EDT) Anatomical Region Laterality Modality Abdomen Ultrasound 05/23/2023 9:54 AM EDT Narrative 05/26/2023 12:12 PM EDT ? [facility] ?[address] ?[place] [address] ? Ultrasound Report ? Signed ? Patient: Neifa,Tiffany M ?MR#: [id number] ?? 91 ? : 1965 ?Acct:[id number] ? Age/Sex: 58 / F ?ADM Date: 05/23/23 ? Loc: HO.US ? Attending Dr: Maryana Winkler MD ? Ordering Physician: Maryana Winkler MD ?? Date of Service: 05/23/23 ?? Procedure(s): US abdomen complete ?? Accession Number(s): [id number] ? cc: Maryana Winkler MD ? EXAMINATION: [...] MD in OV> ? 05/26/23 1209 ? DD/DT: 05/23/ 0954 ? TD/TT: ? Communications Field Technician: SS ? Procedure Note Jeffrey, Image - 05/26/[address] [address] Ultrasound Report Signed Patient: Tiffany Vergara MMR#: [id number] 91 : 1965Acct:[id number] Age/Sex: 58 / FADM Date: 05/23/23 Loc: HO.US Attending Dr: Maryana Winkler MD Ordering Physician: Maryana Winkler MD Date of Service: 05/23/23 Procedure(s): US abdomen complete Accession Number(s): [id number] cc: Maryana Winkler MD EXAMINATION: US ABDOMEN [...] in OV> 05/26/23 1209 DD/ 0954 TD/TT: Communications Field Technician: CORBY us [facility] External Provider IMG US PROCEDURES Edited Result - Final * Hm Mammography (04/03/2023) Anatomical Region Laterality Modality Other us Historical Provider HEALTH MAINTENANCE Final Result documented in this encounter Visit Diagnoses Not on filedocumented in this encounter Additional Health Concerns Assessment Noted Time PHQ-9 Depression Total Score: 4 12/14/19 23 9:31 AM EST documented as of this encounter Care Teams Surface Plate Finisher Relationship Specialty Start Date End Date Maryana Winkler MD [address] [place] [address] PCP - General Family Medicine 11/12/18 documented as of this encounter
--- OUTSIDE RECORDS SUMMARY | 2025-02-18 16:09 | XMS_ITS | Encounter Summary ---
Author Organization [employer] Address [address] [facility] 7t [place] [address] Care Team Providers Care Hydramatic Specialist Name Role Phone Maryana Winkler MD Primary Care Provider [phone] Encounter Details Date Type Department Care Team (Late st Contact Info) Description 01/11/2025 Orders Only [facility] [address] [place], [place] [phone] Maryana Winkler MD [address] [place] [address] Acute right ankle pain Social History Tobacco Use Types Packs/Day Years [...] Description 04/09/2025 11:00 AM EDT Office Visit [facility] [address] [place] [address] CarlEnid crawford [address] [place] [address] 11/30/2025 9:00 AM EST Medication Management [facility] [address] [place] [address] documented as of this encounter Visit Diagnoses Diagnosis Acute right ankle pain documented in this encounter Additional Health Concerns Assessment Noted Time PHQ-9 Depression Total Score: 13 024 11:34 AM EST documented as of this encounter Care Teams Hydramatic Specialist Relationship Specialty Start Date End Date Maryana Winkler MD [address] [place] [address] PCP - General Family Medicine 11/12/18 documented as of this encounter
--- OUTSIDE RECORDS SUMMARY | 2025-02-18 16:09 | XMS_ITS | Encounter Summary ---
Author Organization [employer] Address [address] [place] [address] [address] [place] [address] Care Team Providers Care Ventilating Expert Name Role Phone Maryana Winkler MD Primary Care Provider [phone] Encounter Details Date Type Department Care Team (Late st Contact Info) Description 07/17/2023 Abstract [facility] [address] [place], [place] [phone] Maryana Winkler MD [address] [place], [place] [phone] Social History Tobacco Use Types Packs/Day Years [...] Description 04/09/2025 11:00 AM EDT Office Visit [facility] [address] [place], [place] [phone] Enid Henry [address] [place] [address] 11/30/2025 9:00 AM EST Medication Management [facility] [address] [place] [address] documented as of this encounter Visit Diagnoses Not on filedocumented in this encounter Additional Health Concerns Assessment Noted Time PHQ-9 Depression Total Score: 4 12/14/19 23 9:31 AM EST documented as of this encounter Care Teams Ventilating Expert Relationship Specialty Start Date End Date Maryana Winkler MD [address] [place] [address] PCP - General Family Medicine 11/12/18 documented as of this encounter
--- OUTSIDE RECORDS SUMMARY | 2025-02-18 16:09 | XMS_ITS | Encounter Summary ---
Author Organization [employer] Address [address] [facility] 7t [place] [address] Care Team Providers Care Petrographer Name Role Phone Maryana Winkler MD Primary Care Provider [phone] Reason for Visit * Reason Comments Med Refill Encounter Details Date Type Department Care Team ([facility] st Contact Info) Description 08/13/2024 Refill [facility] [address] [place], [place] [phone] Maryana Winkler MD [address] [place], [place] [phone] Social History Tobacco Use Types Packs/Day Years [...] Description 04/09/2025 11:00 AM EDT Office Visit [facility] [address] [place] [address] Enid Henry [address] [place] [address] 11/30/2025 9:00 AM EST Medication Management [facility] [address] [place] [address] documented as of this encounter Visit Diagnoses Not on filedocumented in this encounter Additional Health Concerns Assessment Noted Time PHQ-9 Depression Total Score: 13 024 11:34 AM EST documented as of this encounter Care Teams Petrographer Relationship Specialty Start Date End Date Maryana Winkler MD [address] [place] [address] PCP - General Family Medicine 11/12/18 documented as of this encounter
--- OUTSIDE RECORDS SUMMARY | 2025-02-18 16:09 | XMS_ITS | Encounter Summary ---
Author Organization [employer] Address [address] [place] [address] [address] [place] [address] Care Team Providers Care Political Reporter Name Role Phone Maryana Winkler MD Primary Care Provider [phone] Encounter Details Date Type Department Care Team (Latest Contact Info) Description 03/27/2019 Abstract [facility] CONVERSIONS Dental, Provider, DDS Social History [...] Description 04/09/2025 11:00 AM EDT Office Visit [facility] ADULT DENT[facility] [address] [place] [address] Enid Henry [address] [place] [address] 11/30/2025 9:00 AM EST Medication Management [facility] [address] [place] [address] documented as of this encounter Visit Diagnoses Not on filedocumented in this encounter Care Teams Political Reporter Relationship Specialty Start Date End Date Maryana Winkler MD [address] [place] [address] PCP - General Family Medicine 11/12/18 documented as of this encounter
--- OUTSIDE RECORDS SUMMARY | 2025-02-18 16:09 | XMS_ITS | Encounter Summary ---
Author Organization [employer] Address [address] [place] [address] 7 [place] [address] Care Team Providers Care Rail Signal Mechanic Name Role Phone Maryana Winkler MD Primary Care Provider [phone] Encounter Details Date Type Department Care Team (Latest Contact Info) Description 03/16/2021 Abstract [facility] CONVERSIONS Dental, Provider, DDS Social History [...] Description 04/09/2025 11:00 AM EDT Office Visit [facility] ADULT DENT[facility] [address] [place] [address] Enid Henry [address] [place] [address] 11/30/2025 9:00 AM EST Medication Management [facility] [address] [place] [address] documented as of this encounter Visit Diagnoses Not on filedocumented in this encounter Care Teams Rail Signal Mechanic Relationship Specialty Start Date End Date Maryana Winkler MD [address] [place] [address] PCP - General Family Medicine 11/12/18 documented as of this encounter
--- OUTSIDE RECORDS SUMMARY | 2025-02-18 16:09 | XMS_ITS | Encounter Summary ---
Author Organization [employer] Address 75 [facility] 7t [place] [address] Care Team Providers Care Service Worker Name Role Phone Maryana Winkler MD Primary Care Provider [phone] Encounter Details Date Type Department Care Team ([facility] st Contact Info) Description 02/18/2025 Telephone [facility] MEDICINE [address] [place] [address] Maryana Winkler MD [address] [place] [address] Social History Tobacco Use Types Packs/Day Years [...] AM EDT documented as of this encounter Miscellaneous Notes * Telephone Encounter - Renée Ying - 02/18/2025 3:33 PM EDT Normal lab test letter sent on 02/18/2025 documented in this encounter Plan of Treatment Upcoming Encounters Date Type Department Care Team (Late st Contact Info) Description 04/09/2025 11:00 AM EDT Office Visit [facility] ADULT DENTAL [address] [place] [address] Carl, [place] [address] [place] [address] 11/30/2025 9:00 AM EST Medication Management [facility] MEDICINE [address] [place] [address] documented as of this encounter Visit Diagnoses Not on filedocumented in this encounter Additional Health Concerns Assessment Noted Time PHQ-9 Depression Total Score: 1 01/29/20 25 2:27 PM EDT documented as of this encounter Care Teams Service Worker Relationship Specialty Start Date End Date Maryana Winkler MD [address] [place] [address] PCP - General Family Medicine 11/12/18 documented as of this encounter
--- OUTSIDE RECORDS SUMMARY | 2025-02-18 16:09 | XMS_ITS | Encounter Summary ---
Author Organization [employer] Address 75 [facility] 7t [place] [address] Care Team Providers Care Car Electronics Installer Name Role Phone Maryana Winkler MD Primary Care Provider [phone] Encounter Details Date Type Department Care Team (Late st Contact Info) Description 11/18/2024 Orders Only [facility] MEDICINE [address] [place] [address] ProviderCristopher MD Social History Tobacco Use Types [...] the past 12 months, has t he [employer], gas, oil or water company threatened to [...] Description 04/09/2025 11:00 AM EDT Office Visit [facility] ADULT DENTAL [address] [place] [address] Carl [place] [address] [place] [address] 11/30/2025 9:00 AM EST Medication Management [facility] MEDICINE [address] [place] [address] documented as of this encounter Procedures Procedure Name Priority Date/Time Associated Diagnosis Comments HM MAMMOGRAPHY Routine 10/27/2024 10:28 AM EST documented [...] documented as of this encounter Care Teams Car Electronics Installer Relationship Specialty Start Date End Date Maryana Winkler MD [address] [place] [address] PCP - General Family Medicine 11/12/18 documented as of this encounter
--- OUTSIDE RECORDS SUMMARY | 2025-02-18 16:09 | XMS_ITS | Encounter Summary ---
Author Organization [employer] Address 75 [facility] 7 [place] [address] Care Team Providers Care Driver/Guide Name Role Phone Maryana Winkler MD Primary Care Provider [phone] Reason for Visit * Reason Onset Date Comments Appointment Request 01/19/2025 Encounter Details Date Type Department Care Team ([facility] Contact Info) Description 01/19/2025 Telephone [facility] MEDICINE [address] [place], [place] [phone] Maryana Winkler MD [address] [place], [place] [phone] Appointment Request Social History Tobacco Use Types Packs/Day Years [...] encounter Miscellaneous Notes * Telephone Encounter - Delia Almazan RN - 01/21/2025 12:02 PM EDT Pt walked into green team lobby requesting appt with PCP. Reports was admitted at [facility] 01/10-01/15 for anaphylactic shock after consuming suzie seeds, admitted to ICU. Booked HDF with PCP for 01/29/25. Updated allergy list to reflect this allergy * Telephone Encounter - Aminta Camilo - 01/19/2025 2:39 PM EDT Tc from pt requesting appointment follow up as she will like to see PCP due to several concerns documented in this encounter Plan of Treatment Upcoming Encounters Date Type Department Care Team (Late st Contact Info) Description 04/09/2025 11:00 AM EDT Office Visit [facility] ADULT DENTAL [address] [place], [place] [phone] Carl, [place] [address] [place] [address] 11/30/2025 9:00 AM EST Medication Management [facility] MEDICINE [address] [place] [address] documented as of this encounter Visit Diagnoses Not on filedocumented in this encounter Additional Health Concerns Assessment Noted Time PHQ-9 Depression Total Score: 13 024 11:34 AM EST documented as of this encounter Care Teams Driver/Guide Relationship Specialty Start Date End Date Maryana Winkler MD [address] [place] [address] PCP - General Family Medicine 11/12/18 documented as of this encounter
== END 2025-02-18 14:48 | disposition home or self-care (01) ==
LOC: HO.HGI 13:55
PROVIDERS: PCP Family Medicine; Visit Provider Nurse Practitioner
DX: K59.04 Chronic idiopathic constipation (principal); K30 Functional dyspepsia; K21.9 Gastro-esophageal reflux disease without esophagitis
CPT/HCPCS: 99213

== ENCOUNTER → 2025-02-18 13:55 | Outpatient (BNVA) | payer OTHER, SELFPAY | PROVIDERS: PCP Family Medicine; Visit Provider Nurse Practitioner | DX: K59.04 Chronic idiopathic constipation (principal); K21.9 Gastro-esophageal reflux disease without esophagitis; K30 Functional dyspepsia | CPT/HCPCS: 99212 ==

== ENCOUNTER 2025-03-11 08:48 | Outpatient (REF) | payer OTHER, SELFPAY ==
--- OUTSIDE RECORDS SUMMARY | 2025-03-11 09:10 | XMS_ITS | Encounter Summary ---
Author Organization [employer] Address 75 [facility] 7t [place] [address] Care Team Providers Care Clinical Aide Name Role Phone Maryana Winkler MD Primary Care Provider [phone] Reason for Visit * Reason Comments Med Refill Encounter Details Date Type Department Care Team ([facility] st Contact Info) Description 08/02/2024 Refill [facility] MEDICINE [address] [place], [place] [phone] Maryana Wnikler MD [address] [place], [place] [phone] Social History Tobacco Use Types Packs/Day Years [...] Description 04/09/2025 11:00 AM EDT Office Visit [facility] ADULT DENTAL [address] [place] [address] [place] Henry [address] [place] [address] 11/30/2025 9:00 AM EST Medication Management [facility] MEDICINE [address] [place] [address] documented as of this encounter Visit Diagnoses Not on filedocumented in this encounter Additional Health Concerns Assessment Noted Time PHQ-9 Depression Total Score: 13 024 11:34 AM EST documented as of this encounter Care Teams Clinical Aide Relationship Specialty Start Date End Date Maryana Winkler MD [address] [place] [address] PCP - General Family Medicine 11/12/18 documented as of this encounter
--- OUTSIDE RECORDS SUMMARY | 2025-03-11 09:10 | XMS_ITS | Encounter Summary ---
Author Organization [employer] Address [address] [place] [address] 7 [place] [address] Care Team Providers Care Balance Truer Name Role Phone Maryana Winkler MD Primary Care Provider [phone] Encounter Details Date Type Department Care Team (Latest Contact Info) Description 03/16/2021 Abstract [facility] CONVERSIONS Dental, Provider, DDS Social History [...] Description 04/09/2025 11:00 AM EDT Office Visit [facility] ADULT DENTAL [address] [place] [address] En[place] Henry [address] [place] [address] 11/30/2025 9:00 AM EST Medication Management [facility] MEDICINE [address] [place] [address] documented as of this encounter Visit Diagnoses Not on filedocumented in this encounter Care Teams Balance Truer Relationship Specialty Start Date End Date Maryana Winkler MD 230 [place] [address] PCP - General Family Medicine 11/12/18 documented as of this encounter
--- OUTSIDE RECORDS SUMMARY | 2025-03-11 09:10 | XMS_ITS | Encounter Summary ---
Author Organization [employer] Address [address] [place] [address] 7 [place] [address] Care Team Providers Care Forensic Scientist Name Role Phone Maryana Winkler MD Primary Care Provider [phone] Encounter Details Date Type Department Care Team (Latest Contact Info) Description 03/23/2022 Abstract [facility] CONVERSIONS Dental, Provider, DDS Social History [...] Description 04/09/2025 11:00 AM EDT Office Visit [facility] ADULT DENTAL [address] [place] [address] [place] Henry [address] [place] [address] 11/30/2025 9:00 AM EST Medication Management [facility] MEDICINE [address] [place] [address] documented as of this encounter Visit Diagnoses Not on filedocumented in this encounter Care Teams Forensic Scientist Relationship Specialty Start Date End Date Maryana Winkler MD [address] [place] [address] PCP - General Family Medicine 11/12/18 documented as of this encounter
--- OUTSIDE RECORDS SUMMARY | 2025-03-11 09:10 | XMS_ITS | Encounter Summary ---
Author Organization [employer] Address [address] [place] [address] 7t [place] [address] Care Team Providers Care Group Home Manager Name Role Phone Maryana Winkler MD Primary Care Provider [phone] Encounter Details Date Type Department Care Team (Late st Contact Info) Description 05/23/2023 Orders Only [facility] MEDICINE [address] [place] [address] [phone] Provider, MD Cristopher Social History Tobacco Use [...] Description 04/09/2025 11:00 AM EDT Office Visit [facility] ADULT DENTAL [address] [place], [place] [phone] [place] Henry [address] [place] [address] 11/30/2025 9:00 AM EST Medication Management [facility] MEDICINE [address] [place] [address] documented as of this encounter Procedures Procedure [...] EST) Vitamin D, 25-OH, D2 6 ng/mL [facility] Comment:This test was develo ped and its analytical performancecharacteristics have been determined by [employer] [place], [place]. It hasnot been cleared or approved by the U.S. Food and DrugAdministration. This assay has been validated pursuantto the CLIA regulations and is used for clinicalpurposes.THIS TEST WAS PERFORMED AT:[employer] [id number] [place] [address]OTLZDGKSAM WELLS MD,PHD Vitamin D, 25-OH, D3 20 ng/mL [facility] Comment:This test was develo ped and its analytical performancecharacteristics have been determined by [employer] [place], [place]. It hasnot been cleared or approved by the U.S. Food and DrugAdministration. This assay has been validated pursuantto the CLIA regulations and is used for clinicalpurposes. Vitamin D, 25-OH, Total 26(A) 30 - 100 ng/mL [facility] Comment:Vitamin D, 25-Hydrox y reports concentrations [...] = 30 ng/mL.For additional information, please refer tohttp://education.[employer]/faq/JTE064(This link is being provided for informational/educational purposes only.) 01/16/2024 8:44 AM EST 01/16/2024 11:23 AM EST us Generic External Data Provider LAB BLOOD ORDERAB LES Final Result Performing Organization Address [facility]/ZIP Co de Phone Number [facility] [address] [place] [phone] * Urine electrolytes (12/20/2023 10:49 PM EST) Chloride Urine Random <20.0 mmol/L [facility] Sodium Urine Random 44.0 mmol/L [facility] Potassium Urine Random 7.7 mmol/L [facility] 12/20/2023 10:4 9 PM EST 12/20/2023 10:53 PM EST us Generic External Data Provider LAB URINE ORDERAB LES Final Result Performing Organization Address [facility]/ZIP Co de Phone Number [facility] [address] [place] [phone] * Urinalysis w/reflex microscopic (12/20/2023 10:49 PM EST) Pathologist [facility] Color Urine Yellow [facility] Appearance Urine Clear [facility] PH 8.0 5.0 - 9.0 [facility] Glucose Urine UA Negative Negative mg/dL [facility] Urine Blood Negative Negative [facility] Specific [place] - Urine 1.010 1.005 - 1.025 [facility] Urine Protein Negative Neg-Trace mg/dL [facility] Urine Ketones Negative Negative mg/dL [facility] Nitrite Urine Negative Negative [facility] Leukocyte Esterase Urine Negative Negative [facility] 12/20/2023 10:4 9 PM EST 12/20/2023 10:53 PM EST Narrative [facility] - 12/20/2023 10:56 PM EST [id number], Clean Catch Generic External Data Provider LAB URINE ORDERAB LES Final Result Performing Organization Address [facility]/ZIP Co de Phone Number [facility] [address] [place] [phone] * Electrolyte Panel (12/20/2023 10:40 PM EST) [facility] Sodium 139 135 - 145 mmol/L [facility] Potassium 3.4 3.3 - 5.1 mmol/L [facility] Chloride 103 96 - 108 mmol/L [facility] Carbon Dioxide 27 22 - 29 mmol/L [facility] Anion Gap 12 12 - 20 [facility] 12/20/2023 10:4 0 PM EST 12/20/2023 10:43 PM EST us Generic External Data Provider LAB BLOOD ORDERAB LES Final Result Performing Organization Address [facility]/ZIP Co de Phone Number [facility] [address] [place] [address] [phone] * Magnesium (12/20/2023 4:46 PM EST) Magnesium 2.1 1.6 - 2.6 mg/dL [facility] 12/20/2023 4:46 PM EST 12/20/2023 4:49 PM EST us Generic External Data Provider LAB BLOOD ORDERAB LES Final Result [facility] [address] [place] [address] [phone] * (ABNORMAL) Comprehensive Metabolic Panel (12/20/2023 4:46 PM EST) Sodium 136 135 - 145 mmol/L [facility] Potassium 2.6(LL) 3.3 - 5.1 mmol/L [facility] Comment:Critical value for t est(s): POTS Results called to and readback by: JAYLAN Person calling: SALIERD Date: 12/20/23 Time:1707 Chloride 98 96 - 108 mmol/L [facility] Carbon Dioxide 28 22 - 29 mmol/L [facility] Anion Gap 13 12 - 20 [facility] Urea Nitrogen (BUN) 10 9 - 16 mg/dL [facility] Creatinine, Serum 0.84 0.5 - 1.4 mg/dL [facility] Creatinine Clr Calc Pharmacy 49.1 [facility] Comment:Provided height and weight: 149.86 cm,49.5 kg.eGFR (calculated from the MDRD study equation) and eCrCl(calculated from the Cockcroft-Gault equation) are based ondifferent parameters and may not yield comparable results.If eCrCl result is absurd, please check patient'sheight/weight. Estimated Glomerular Filt Rate >60 [facility] Comment:NOTE: For -Am erican individuals, multiply the result by 1.210.Chronic Kidney Disease: Estimated GFR < 60 mL/min/1.79b8Rnepfg Kidney Disease: Estimated GFR < 15 mL/min/1.73m2 Glucose 155(H) 60 - 115 mg/dL [facility] Calcium 9.2 8.4 - 10.2 mg/dL [facility] Bilirubin, Total 0.4 0.0 - 1.0 mg/dL [facility] Aspartate Amino Transferase 24 5 - 31 U/L [facility] Alanine Aminotransferase 14 0 - 31 U/L [facility] Total Protein 7.3 6.5 - 8.0 g/dL [facility] Albumin Level 4.1 3.5 - 5.0 g/dL [facility] Alkaline Phosphatase 72 39 - 117 U/L [facility] 12/20/2023 4:46 PM EST 12/20/2023 4:49 PM EST us Generic External Data Provider LAB BLOOD ORDERAB LES Final Result [facility] [address] [place] [phone] [phone] * (ABNORMAL) CBC auto differential (12/20/2023 4:46 PM EST) White Blood Count 6.9 4.8 - 10.8 X10*3/uL [facility] Red Blood Count 4.79 4.20 - 5.50 X10*6/uL [facility] Hemoglobin 14.7 12.0 - 16.0 g/dl [facility] Hematocrit 41.3 37.0 - 47.0 % [facility] Mean Corpuscular Volume 86.2 80.0 - 98.0 fL [facility] Mean Corpuscular Hemoglobin 30.7 27.0 - 33.0 pg [facility] Mean Corpuscular HGB Conc 35.6(H) 31.0 - 35.0 g/dl [facility] Red Cell Distribution Width 12.7 11.0 - 16.0 % [facility] Platelet Count 158(L) 160 - 400 X10*3/uL [facility] Mean Platelet Volume 9.4 9.4 - 12.3 fL [facility] Neutrophils Percent Auto 57.1 45 - 73 % [facility] Imm Gran Pct Auto 0.1 0.0 - 0.4 % [facility] Lymphocytes Percent Auto 33.5 20 - 40 % [facility] Monocytes Percent Auto 6.8 2 - 11 % [facility] Eosinophils Percent Auto 1.9 0 - 4 % [facility] Basophils Percent Auto 0.6 0 - 2 % [facility] NRBC Pct Auto 0.0 0.0 - 0.2 /100WBC [facility] Neutrophils Absolute Auto 4.0 2.0 - 8.3 x10*3/uL [facility] Imm Gran Abs Auto 0.01 0.00 - 0.03 X10*3/uL [facility] Lymphocytes Absolute Auto 2.3 1.2 - 4.9 X10*3/uL [facility] Monocytes Absolute Auto 0.5 0.1 - 1.2 X10*3/uL [facility] Eosinophils Absolute Auto 0.1 0.0 - 0.4 X10*3/uL [facility] Basophils Absolute Auto 0.0 0.0 - 0.2 X10*3/uL [facility] NRBC Abs Auto 0.000 0.0 - 0.012 X10*3/uL [facility] 12/20/2023 4:46 PM EST 12/20/2023 4:49 PM EST us Generic External Data Provider LAB BLOOD ORDERAB LES Final Result Performing Organization Address City/State/[facility] Co de Phone Number [facility] [address] [place] [address] [phone] * US Abdomen Complete (05/23/2023 9:54 AM EDT) Anatomical Region Laterality Modality Abdomen Ultrasound 05/23/2023 9:54 AM EDT Narrative 05/26/2023 12:12 PM EDT ? [facility] ?[address] ?[place] [address] ? Ultrasound Report ? Signed ? Patient: Neifa,Tiffany M ?MR#: [id number] ?? 89 ? : 1965 ?Acct:[id number] ? Age/Sex: 58 / F ?ADM Date: 05/23/23 ? Loc: HO.US ? Attending Dr: Maryana Winkler MD ? Ordering Physician: Maryana Winkler MD ?? Date of Service: 05/23/23 ?? Procedure(s): US abdomen complete ?? Accession Number(s): [id number] ? cc: Maryana Winkler MD ? EXAMINATION: [...] ? DD/DT: 05/23/ 0954 ? TD/TT: ? Printing Supplies Sales Representative: SS ? Procedure Note Jeffrey, Image - 05/26/[address] [address] Ultrasound Report Signed Patient: Tiffany Vergara MMR#: [id number] [birth year] : 1965Acct:[id number] Age/Sex: 58 / FADM Date: 05/23/23 Loc: HO.US Attending Dr: Maryana Winkler MD Ordering Physician: Maryana Winkler MD Date of Service: 05/23/23 Procedure(s): US abdomen complete Accession Number(s): [id number] cc: Maryana Winkler MD EXAMINATION: US ABDOMEN [...] in OV> 05/26/23 1209 DD/ 0954 TD/TT: [employer] Supp[employer] Sales Representative: CORBY us [facility] External Provider IMG US PROCEDURES Edited Result - Final * Hm Mammography (04/03/2023) Anatomical Region Laterality Modality Other us Historical Provider HEALTH MAINTENANCE Final Result documented in this encounter Visit Diagnoses Not on filedocumented in this encounter Additional Health Concerns Assessment Noted Time PHQ-9 Depression Total Score: 4 12/14/19 23 9:31 AM EST documented as of this encounter Care Teams Group Home Manager Relationship Specialty Start Date End Date Maryana Winkler MD [address] [place] [address] PCP - General Family Medicine 11/12/18 documented as of this encounter
--- OUTSIDE RECORDS SUMMARY | 2025-03-11 09:10 | XMS_ITS | Encounter Summary ---
Author Organization [employer] Address [address] [place] [address] 7 [place] [address] Care Team Providers Care Account Coordinator Name Role Phone Maryana Winkler MD Primary Care Provider [phone] Encounter Details Date Type Department Care Team (Latest Contact Info) Description 03/27/2019 Abstract [facility] CONVERSIONS Dental, Provider, DDS Social [...] Description 04/09/2025 11:00 AM EDT Office Visit [facility] ADULT DENTAL [address] [place] [address] Werner Henryaris [address] [place] [address] 11/30/2025 9:00 AM EST Medication Management [facility] MEDICINE [address] [place] [address] documented as of this encounter Visit Diagnoses Not on filedocumented in this encounter Care Teams Account Coordinator Relationship Specialty Start Date End Date Maryana Winkler MD [address] [place] [address] PCP - General Family Medicine 11/12/18 documented as of this encounter
--- OUTSIDE RECORDS SUMMARY | 2025-03-11 09:10 | XMS_ITS | Encounter Summary ---
Author Organization [employer] Address [address] [place] [address] 7t [place] [address] Care Team Providers Care Vacation Planner Name Role Phone Maryana Winkler MD Primary Care Provider [phone] Reason for Visit * Reason Comments Med Refill Encounter Details Date Type Department Care Team (Late Contact Info) Description 07/23/2023 Refill [facility] [address] [place], [place] [phone] Maryana Winkler MD [address] [place] [address] Allergic rhinitis, unspecified seasonality, unspecified trigger Social [...] Description 04/09/2025 11:00 AM EDT Office Visit [facility] ADULT DENTAL [address] [place], [place] [phone] Werner Henryaris [address] [place] [address] 11/30/2025 9:00 AM EST Medication Management [facility] MEDICINE [address] [place] [address] documented as of this encounter Visit Diagnoses Diagnosis Allergic rhinitis, unspecified seasonality, unspecified trigger documented in this encounter Additional Health Concerns Assessment Noted Time PHQ-9 Depression Total Score: 4 12/14/19 23 9:31 AM EST documented as of this encounter Care Teams Vacation Planner Relationship Specialty Start Date End Date Maryana Winkler MD [address] [place] [address] PCP - General Family Medicine 11/12/18 documented as of this encounter
--- OUTSIDE RECORDS SUMMARY | 2025-03-11 09:10 | XMS_ITS | Encounter Summary ---
Author Organization [employer] Address [address] [place] [address] 7 [place] [address] Care Team Providers Care Print Shop Assistant Name Role Phone Maryana Winkler MD Primary Care Provider [phone] Encounter Details Date Type Department Care Team (Late st Contact Info) Description 07/17/[address] [facility] MEDICINE [address] [place], [place] [phone] Maryana Winkler MD [address] [place], [place] [phone] Social History Tobacco Use Types Packs/Day Years [...] Description 04/09/2025 11:00 AM EDT Office Visit [facility] ADULT DENTAL [address] [place], [place] [phone] [place] Henry [address] [place] [address] 11/30/2025 9:00 AM EST Medication Management [facility] MEDICINE [address] [place] [address] documented as of this encounter Visit Diagnoses Not on filedocumented in this encounter Additional Health Concerns Assessment Noted Time PHQ-9 Depression Total Score: 4 12/14/19 23 9:31 AM EST documented as of this encounter Care Teams Print Shop Assistant Relationship Specialty Start Date End Date Maryana Winkler MD [address] [place] [address] PCP - General Family Medicine 11/12/18 documented as of this encounter
--- OUTSIDE RECORDS SUMMARY | 2025-03-11 09:10 | XMS_ITS | Encounter Summary ---
Author Organization [employer] Address [address] [facility] [address] [place] [address] Care Team Providers Care Supervisor Cemetery Workers Name Role Phone Maryana Winkler MD Primary Care Provider [phone] Reason for Visit * Reason Comments Med Refill Encounter Details Date Type Department Care Team ([facility] st Contact Info) Description 08/13/2024 Refill [facility] [address] [place], [place] [phone] Maryana Winkler MD [address] [place], [place] [phone] Social History Tobacco Use Types Packs/Day Years [...] Description 04/09/2025 11:00 AM EDT Office Visit [facility] ADULT DENTAL [address] [place] [address] Enid Henry [address] [place] [address] 11/30/2025 9:00 AM EST Medication Management [facility] [address] [place] [address] documented as of this encounter Visit Diagnoses Not on filedocumented in this encounter Additional Health Concerns Assessment Noted Time PHQ-9 Depression Total Score: 13 024 11:34 AM EST documented as of this encounter Care Teams Supervisor Cemetery Workers Relationship Specialty Start Date End Date Maryana Winkler MD [address] [place] [address] PCP - General Family Medicine 11/12/18 documented as of this encounter
--- OUTSIDE RECORDS SUMMARY | 2025-03-11 09:10 | XMS_ITS | Encounter Summary ---
Author Organization [employer] Address [address] [facility] [address] [place] [address] Care Team Providers Care Optical Worker Name Role Phone Maryana Winkler MD Primary Care Provider [phone] Reason for Visit * Reason Comments Med Refill Encounter Details Date Type Department Care Team ([facility] st Contact Info) Description 03/08/2025 Refill [facility] [address] [place], [place] [phone] Maryana Winkler MD [address] [place] [address] Social History Tobacco Use Types Packs/Day Years [...] Description 04/09/2025 11:00 AM EDT Office Visit [facility] ADULT DENTAL [address] [place] [address] Carl, [place] [address] [place] [address] 11/30/2025 9:00 AM EST Medication Management [facility] [address] [place] [address] documented as of this encounter Visit Diagnoses Not on filedocumented in this encounter Additional Health Concerns Assessment Noted Time PHQ-9 Depression Total Score: 1 01/29/20 25 2:27 PM EDT documented as of this encounter Care Teams Optical Worker Relationship Specialty Start Date End Date Maryana Winkler MD [address] [place] [address] PCP - General Family Medicine 11/12/18 documented as of this encounter
--- OUTSIDE RECORDS SUMMARY | 2025-03-11 09:10 | XMS_ITS | Encounter Summary ---
Author Organization [employer] Address [address] [facility] [address] [place] [address] Care Team Providers Care Assistant Housekeeping Manager Name Role Phone Maryana Winkler MD Primary Care Provider [phone] Encounter Details Date Type Department Care Team (Late st Contact Info) Description 01/11/2025 Orders Only [facility] MED[facility] [address] [place], [place] [phone] Maryana Winkler MD [address] [place] [address] Acute right ankle pain Social History Tobacco [...] Description 04/09/2025 11:00 AM EDT Office Visit [facility] ADULT DENTAL [address] [place] [address] CarlEnid crawford [address] [place] [address] 11/30/2025 9:00 AM EST Medication Management [facility] [address] [place] [address] documented as of this encounter Visit Diagnoses Diagnosis Acute right ankle pain documented in this encounter Additional Health Concerns Assessment Noted Time PHQ-9 Depression Total Score: 13 024 11:34 AM EST documented as of this encounter Care Teams Assistant Housekeeping Manager Relationship Specialty Start Date End Date Maryana Winkler MD [address] [place] [address] PCP - General Family Medicine 11/12/18 documented as of this encounter
--- OUTSIDE RECORDS SUMMARY | 2025-03-11 09:10 | XMS_ITS | Encounter Summary ---
Author Organization [employer] Address [address] [facility] [address] [place] [address] Care Team Providers Care Car Unloader Helper Name Role Phone Maryana Winkler MD Primary Care Provider [phone] Encounter Details Date Type Department Care Team ([facility] st Contact Info) Description 01/19/2025 Telephone [facility] MEDICINE [address] [place] [address] Maryana Winkler MD [address] [place] [address] Social History Tobacco Use Types Packs/Day Years [...] Description 04/09/2025 11:00 AM EDT Office Visit [facility] ADULT DENTAL [address] [place] [address] Carl, [place] [address] [place] [address] 11/30/2025 9:00 AM EST Medication Management [facility] MEDICINE [address] [place] [address] documented as of this encounter Visit Diagnoses Not on filedocumented in this encounter Additional Health Concerns Assessment Noted Time PHQ-9 Depression Total Score: 13 024 11:34 AM EST documented as of this encounter Care Teams Car Unloader Helper Relationship Specialty Start Date End Date Maryana Winkler MD [address] [place] [address] PCP - General Family Medicine 11/12/18 documented as of this encounter
--- OUTSIDE RECORDS SUMMARY | 2025-03-11 09:10 | XMS_ITS | Clinical Summary ---
Author Organization [employer] Address [address] [place] [address] [address] [place] [address] Care Team Providers Care Profiling Machine Operator Name Role Phone Maryana Winkler MD Primary Care Provider [phone] Allergies Active Allergy Reactions Criticality Noted Date Comments Parker Oil Anaphylaxis High 12/07/2023 Juan Oil (Salvia Hispanica) Anaphylaxis High 025 Allergy to Juan seeds (not an option in epic) Fexofenadine Unknown Medications SUMAtriptan (Imitrex) 100 MG tablet Take 100 mg by mouth if needed in the morning and at bedtime. 11/28/19 23 Active Simethicone Ultra Strength 180 MG capsule Take 180 mg by mouth 4 times daily. 11/16/19 23 Active metoclopramide (Reglan) 10 MG tablet Take 10 mg by mouth 4 times daily. 11/16/19 23 Active Linzess 290 MCG capsule Take 290 mcg by mouth in the morning. 09/07/20 22 Active hydrOXYzine HCl (Atarax) 50 MG tablet Take 50 mg by mouth at bedtime. 11/16/19 23 Active DULoxetine (Cymbalta) [address] capsule TAKE 1 CAPSULE BY MOUTH TWICE DAILY IN THE MORNING AND IN THE EVENING 10/19/20 22 Active docusate sodium (Colace) 100 MG capsule TAKE 2 CAPSULES BY MOUTH EVERY DAY AT BEDTIME NEEDED 11/16/19 23 Active Dexilant [address] capsule Take 1 capsule by mouth at bedtime. 08/01/20 22 Active busPIRone (Buspar) 15 MG tablet TAKE 1 TABLET BY MOUTH EVERY MORNING and TAKE 2 TABLETS BY MOUTH EVERY DAY AT BEDTIME 11/16/19 23 Active buPROPion XL (Wellbutrin XL) 300 MG 24 hr tablet Take 300 mg by mouth in the morning. 11/16/19 23 Active Bisacodyl EC 5 MG EC tablet TAKE 2 TABLETS BY MOUTH EVERY DAY AT BEDTIME 11/16/19 23 Active albuterol (Ventolin HFA) 108 (90 Base) MCG/ACT inhalerIndicati ons:Moderate persistent asthma with acute exacerbation Inhale 2 puffs every 4 (four) hours. 18 g 12/25/19 23 Active albuterol (2.5 MG/3ML) 0.083% nebulizer solutionIndicat ions:Wheezing Take 3 mL (2.5 mg) by nebulization every 4 (four) hours if needed for wheezing. 75 mL 3 01/03/20 23 Active Mometasone Furoate (Asmanex HFA) 200 MCG/ACT aerosol Take 1 puff twice daily 13 g 11 12/24/19 24 Active loratadine (Claritin) 10 MG tablet TAKE 1 TABLET BY MOUTH EVERY MORNING 90 tablet 3 02/20/20 24 Active tacrolimus (Protopic) 0.1 % ointment Apply topically if needed in the morning and at bedtime (rash). 60 g 1 09/11/20 24 Active magnesium oxide (Mag-Ox) 400 (240 Mg) MG tablet Take 1 tablet by mouth in the morning. 10/14/20 24 Active atorvastatin (Lipitor) 40 MG tabletIndicatio ns:Dyslipidemia TAKE 1 TABLET BY MOUTH EVERY EVENING 90 tablet 3 12/04/19 25 Active D3 Super Strength 50 MCG (2000 UT) capsule TAKE 1 CAPSULE BY MOUTH EVERY MORNING 30 capsule 3 12/08/19 25 Active Diclofenac Sodium 1 % gelIndications: Acute right ankle pain APPLY 2 GRAMS TOPICALLY TO AFFECTED AREA(S) TWICE DAILY NEEDED 350 g 3 01/12/20 25 Active EPINEPHrine (Epipen) 0.3 MG/0.3ML injection syringe Inject 0.3 mL (0.3 mg) as directed 1 (one) time if needed for anaphylaxis (severe allergic reaction). Inject into upper leg. Call 911 after use. 1 each 1 01/12/20 25 Active midodrine (Proamatine) 10 MG tablet Take 1 tablet by mouth 3 times daily. 01/16/20 25 Active prazosin (Minipress) 1 MG capsule Take 1 capsule by mouth at bedtime. May take 1 additional capsule as needed for nightmares 01/07/20 25 Active topiramate 50 MG tablet Take 1 tablet (50 mg) by mouth 2 times daily. 60 tablet 1 02/10/20 25 Active Blood Pressure Monitor misc Check BP daily 1 each 02/10/20 25 Active gabapentin (Neurontin) 100 MG capsule TAKE 2 CAPSULES BY MOUTH THREE TIMES DAILY IN THE MORNING, EVENING AND BEDTIME 180 capsule 02/21/20 25 Active montelukast (Singulair) 10 MG tablet TAKE 1 TABLET BY MOUTH EVERY EVENING 90 tablet 3 03/09/20 25 Active montelukast (Singulair) 10 MG tablet TAKE 1 TABLET BY MOUTH EVERY EVENING 90 tablet 3 03/20/20 24 2024 Discontinued gabapentin (Neurontin) 100 MG capsule Take 2 capsules (200 mg) by mouth 3 times daily. 180 capsule 01/23/20 25 2024 Discontinued Active Problems Problem Noted Date Diagnosed Date [...] EDT): - carry epi-pen - referred to clinical training specialist Chronic headache 02/09/2025 Assessment & Plan [...] reduction - continue following with recommendation from [facility] provider Transaminitis 02/09/2025 Food allergy 01/28/2025 Overview [...] left eyelid and likely bl allergic conjunctivitis -electric meter technician evaluation referred today -has apt w dermatology [...] on 01/25/[address] Smitha Greene at [facility] -continue following with recommendations by Orthopedist -no longer in cast -Continue occupational therapy Assessment & Plan (02/08/2023 1:33 PM EDT): S/p surgery on 01/25/23 -continue following with recommendations by Orthopedist -currently in cast -pt would benefit from EDITORIAL INTERN services Closed displaced fracture of proximal phalanx [...] Plan (12/24/2023 5:49 AM EST): Following with [facility] Hematology Technologist, last seen in Jun 2023 -Patient was Prescribed Baclofen as visit - continue baclofen - continue lidoderm patches - continue Diclofenac gel - continue acetaminophen prn - judiciously use Ibuprofen/Motrin/Naproxen - continue Gabapentin - recommended to contact Hematology Technologist regarding MRI Scheduling - Hematology Technologist is planning to place a Peripheral Nerve Stimulator after MRI Scan Assessment & Plan (04/30/2023 7:37 PM EDT): Following with [facility] Hematology Technologist, last seen on 04/02/23 -Patient was Prescribed Baclofen as visit - continue baclofen - continue lidoderm patches - continue Diclofenac gel - continue acetaminophen prn - judiciously use Ibuprofen/Motrin/Naproxen - continue Gabapentin - recommended to contact Hematology Technologist regarding MRI Scheduling - Hematology Technologist is planning to place a Peripheral Nerve Stimulator after MRI Scan Irritable bowel syndrome 08/17/2015 Assessment & Plan (11/11/2024 12:37 PM EST): -following with [facility] GI, last seen in Oct 2023 -prescribed simethicone, metoclopramide, and Linzess -continue current treatment plan per GI Assessment & Plan (12/24/2023 5:46 AM EST): -following with [facility] GI, last seen in Oct 2023 -prescribed simethicone, metoclopramide, and Linzess -continue current treatment plan per GI Assessment & Plan (02/18/2023 7:30 AM EDT): -following with [facility] GI, last seen [...] Assessment & Plan (11/21/2024 12:25 PM EST): -Manager Market Research: [facility], last visit in 01/22/24 -referred to orthopedist and sandblaster paint sprayer -previously taking hydroxychloroquine for possible inflammatory arthritis (Hx LAZARO and RF positive), and it was discontinued by new x ray operator -Patient was interested in CBD treatment previously -Pt has tried physical therapies several times, and currently practicing it at home -patient is attending acupuncture. Encouraged to continue -Encouraged to try Taichi and Yoga as recommended -Decrease gabapentin from 600 to 400 mg tid Assessment & Plan (07/26/2024 6:57 AM EDT): -Manager Market Research: [facility], last visit in 01/22/24 -referred to orthopedist and sandblaster paint sprayer -previously taking hydroxychloroquine for possible inflammatory arthritis (Hx LAZARO and RF positive), and it was discontinued by new x ray operator -Patient was interested in CBD treatment previously -Pt has tried physical therapies several times, and currently practicing it at home -patient is attending acupuncture. Encouraged to continue -Encouraged to try Taichi and Yoga as recommended Assessment & Plan (03/18/2024 9:37 AM EDT): -Manager Market Research: [facility], last visit in 01/22/24 -referred to orthopedist and sandblaster paint sprayer -previously taking hydroxychloroquine for possible inflammatory arthritis (Hx LAZARO and RF positive), and it was discontinued by new x ray operator -Patient was interested in CBD treatment previously -Pt has tried physical therapies several times -patient is attending acupuncture. -Encouraged to try Taichi and Yoga as recommended -Cont attending Acupuncture, since doing well. Assessment & Plan (12/24/2023 5:50 AM EST): -Manager Market Research: [facility], last visit in 01/18/23 -referred to orthopedist and sandblaster paint sprayer -previously taking hydroxychloroquine for possible inflammatory arthritis (Hx LAZARO and RF positive), and it was discontinued by new x ray operator -Patient was interested in CBD treatment previously -Pt has tried physical therapies several times -patient is attending acupuncture. -Encouraged to try Taichi and Yoga as recommended -Cont attending Acupuncture, since doing well. Assessment & Plan (04/23/2023 11:54 AM EDT): -Manager Market Research: [facility], last visit in 01/18/23 -Discontinued Plaquenil -referred to orthopedist and sandblaster paint sprayer -still taking hydroxychloroquine for possible inflammatory arthritis (Hx LAZARO and RF positive) -Patient was interested in CBD treatment previously -Pt has tried physical therapies several times -patient is attending acupuncture. -Encouraged to try Taichi and Yoga as recommended -Cont attending Acupuncture, since doing well. Assessment & Plan (02/08/2023 1:19 PM EDT): -Manager Market Research: [facility], last visit in 01/18/23 -Discontinued Plaquenil -referred to orthopedist and sandblaster paint sprayer -still taking hydroxychloroquine for possible inflammatory arthritis [...] not been indicated - Abd US in 2014 unremarkable. - Recheck viral load and US [...] 12:27 PM EST): Behavioral health service provider: Dr. Jose Luis Marie Continue current medication and treatment plan per Dr. Amaya Asthma 02/19/2014 Assessment & Plan (11/11/2024 12:36 PM EST): - Seen by her instructor traffic safety in Aug 2015. - well-controlled recently - change Flovent to Asmanex - continue montelukast - continue albuterol HFA and DuoNeb prn as rescue. - consider another pulmonary fxn test or sleep study if pt continue to has dyspnea - follow up in 3-4 mo Assessment & Plan (07/22/2024 9:56 AM EDT): - Seen by her instructor traffic safety in Aug 2015. - well-controlled recently - change Flovent to Asmanex - continue montelukast - continue albuterol HFA and DuoNeb prn as rescue. - consider another pulmonary fxn test or sleep study if pt continue to has dyspnea - follow up in 3-4 mo Assessment & Plan (03/18/2024 9:25 AM EDT): - Seen by her instructor traffic safety in Aug 2015. - well-controlled recently - change Flovent to Asmanex - continue montelukast - continue albuterol HFA and DuoNeb prn as rescue. - consider another pulmonary fxn test or sleep study if pt continue to has dyspnea - follow up in 3-4 mo Assessment & Plan (12/24/2023 5:37 AM EST): - Seen by her instructor traffic safety in Aug 2015. - well-controlled recently - change Flovent to Asmanex - continue montelukast - continue albuterol HFA and DuoNeb prn as rescue. - consider another pulmonary fxn test or sleep study if pt continue to has dyspnea - follow up in 3-4 mo Assessment & Plan (04/30/2023 7:31 PM EDT): - Seen by her instructor traffic safety in Aug 2015. - well-controlled recently - continue Flovent to 2 puff twice daily and Singulair as maintenance. - continue albuterol HFA and DuoNeb prn as rescue. - consider another pulmonary fxn test or sleep study if pt continue to has dyspnea - follow up in 3-4 mo Assessment & Plan (02/08/2023 1:35 PM EDT): Seen by her instructor traffic safety in Aug 2015. increase Flovent to 2 puff twice daily and Singulair as maintenance. Continue albuterol HFA and DuoNeb prn as rescue. -consider another pulmonary fxn test or sleep study if pt continue to has dyspnea Allergic rhinitis 02/19/2014 Assessment & Plan (12/24/2023 5:54 AM EST): - continue montelukast and antihistamine Constipation 08/15/2013 Assessment & Plan (11/11/2024 12:36 PM EST): Following with [facility] GI Fiber rich diet Continue Dulcolax and Linzess Assessment & Plan (12/24/2023 5:45 AM EST): Following with [facility] GI Fiber rich [...] Plan (11/11/2024 12:37 PM EST): -Following with [facility] GI, last seen in Oct 2023 -Continue Dexilant as prescribed by GI Assessment & Plan (12/24/2023 5:46 AM EST): -Following with [facility] GI, last seen in Oct 2023 -Continue Dexilant as prescribed by GI Assessment & Plan (02/18/2023 7:29 AM EDT): -Following with [facility] GI, last seen [...] Encounters Date Type Department Care Team Description 03/08/2025 Refill [facility] [address] [place] [address] Maryana Winkler MD 03/05/2025 9:00 AM EDT Office Visit [facility] [address] [place] [phone] Elzbieta Wells MD Fibromyalgia (Primary Dx); Generalized anxiety disorder 03/05/2025 Travel 03/03/2025 9:00 AM EDT Office Visit [facility] [address] [place] [phone] Elzbieta Wells MD Fibromyalgia (Primary Dx) 03/03/[address] [address] Maryana Winkler MD rafael 03/03/2025 Travel 02/26/2025 9:00 AM EDT Office Visit [address] [address] Elzbieta Wells MD Fibromyalgia (Primary Dx); Generalized anxiety disorder 02/26/2025 Travel 02/25/2025 Telephone [facility] [address] [place] [phone] Maryana Winkler MD Referral 02/20/2025 Refill [facility] [address] [place] [phone] Maryana Winkler MD 02/18/2025 Telephone [facility] [address] [place] [phone] Maryana Winkler MD 02/09/2025 3:00 PM EDT Office Visit [facility] [place] [address] Maryana Winkler MD Chronic nonintractable headache, unspecified headache type (Primary Dx); Transaminitis; Chronic type B viral hepatitis (CMS/HCC); Migraine without aura and without status migrainosus, not intractable; Depressive disorder; Hypotension, unspecified hypotension type; Hx of anaphylactic shock 02/09/2025 Travel 02/09/2025 [address] [place] [address] Maryana Winkler MD 02/09/[address] [address] Delia Almazan, GAMING CAGE WORKER Follow-up 02/09/[address] [address] Maryana Winkler MD Appointment Request 02/04/2025 4:00 PM EDT Office Visit [facility] WALK-[facility] [place] [address] Harinder Coleman MD Shortness of breath at rest (Primary Dx) 02/04/2025 Orders Only GENERIC EXTERNAL DATA DEPARTMENT Provider, Generic External Data 01/28/2025 2:30 PM EDT Office Visit [facility] [place] [place] [address] Yanni Momin ANP Anaphylaxis, subsequent encounter (Primary Dx); Food allergy; Hospital discharge follow-up; Hypotension, unspecified hypotension type; Migraine without aura and without status migrainosus, not intractable; Dyspnea on exertion; Elevated glucose level 01/28/2025 Travel 01/22/2025 Refill [facility] [address] Tosin Stinson, PharmD 01/19/[address] [address] Maryana Winkler MD Appointment Request 01/19/[address] [address] Maryana Winkler MD 01/11/2025 Orders Only [facility] [address] [place] [address] Maryana Winkler MD Acute right ankle pain 01/10/2025 Orders Only GENERIC EXTERNAL DATA DEPARTMENT Provider, Generic External Data from Last 3 Months Immunizations Name Administration [...] is your housing situation today? I have akikenny ortiz 01/28/[address] you [...] Description 04/09/2025 11:00 AM EDT Office Visit [facility] ADULT DENTAL [address] [place], [place] [phone] Werner Henryaris [address] [place] [address] 11/30/2025 9:00 AM EST Medication Management [facility] [address] [place] [address] Health Maintenance Due Date Last Done Comments [...] Procedure Name Priority Date/Time Associated Diagnosis Comments AMB REFERRAL TO ALLERGY Routine 02/26/2025 Anaphylaxis, subsequent encounter Food allergy XR CHEST 2 VIEWS Routine 02/04/2025 5:59 [...] RADIOGRAPHIC IMAGES Routine 03/16/2021 12:00 AM EDT COLONOSCOPY Routine 2016 from Last 3 Months or Most Recently Relevant to Health Maintenance Results * Referral to Allergy (02/26/2025) us Yanni [facility] OUTPATIENT REFERRAL ORDERABLES F inal Result * XR Chest 2 Views (02/04/2025 5:59 PM EDT) Anatomical Region Laterality Modality Chest Radiographic Jalyn ging 02/04/2025 5:59 PM EDT Narrative 02/04/2025 6:00 PM EDT ? [place] [facility] ?[address] ?[place] [address] ?XRay Report ? Signed ? Patient: Neifa,Tiffany M ?MR#: [id number] ?? 89 ? : 1965 ?Acct:[id number] ? Age/Sex: 59 / F ?ADM Date: 02/04/25 ? Loc: HO.ED ? Attending Dr: ? Ordering Physician: Neftali Osborn ?? Date of Service: 02/04/25 ?? Procedure(s): XR chest 2V ?? Accession Number(s): [id number] ? cc: Neftali Osborn; Maryana Winkler MD [...] ?02/04/25 1800 ? DD/ 1759 ? TD/TT: 02/04/251758 ? Digital Imager: ? Procedure Note Donkaelynter, Image - 02/04/2025 [place] [address] XRay Report Signed Patient: Tiffany Vergara MMR#: [id number] 91 : 1965Acct:[id number] Age/Sex: 59 / FADM Date: 02/04/25 Loc: .ED Attending Dr: Ordering Physician: Neftali Osborn Date of Service: 02/04/25 Procedure(s): XR chest 2V Accession Number(s): [id number] cc: Neftali Osborn; Maryana Winkler MD CLINICAL HISTORY: pain 2 views of the chest. Findings: Heart size is normal. There is no consolidation. No pleural effusion is seen. Impression: No acute abnormalities. This document has been electronically signed by: Levi Menezes MD on 02/04/2025 17:59:15 Dictated By: Elia Trevino MD Signed By: <Electronically signed by Elia Trevino MD in OV> 02/04/25 1800 DD/ 175 TD/TT: 02/04/251758 Digital Imager: [facility] External Provider IMG XR PROCEDURES Final Result * High Sensitivity Troponin I (02/04/2025 5:36 PM EDT) Pathologist [facility] TROPONIN I HIGH SENSITIVITY <2.7 <3.5 - 17.0 ng/L [facility] Comment:The Santos high sens itivity Troponin-I results should beused in conjunction with other diagnostic information suchas ECG, clinical observations and information, and patientsymptoms to aid in the diagnosis of DC. 02/04/2025 5:36 PM EDT 02/04/2025 5:41 PM EDT Generic External Data Provider LAB BLOOD ORDERAB LES Final Result [facility] [address] [place] [phone] * SARS-CoV-2 RNA, Influenza A/B, and RSV RNA, Ql NAAT (02/04/2025 5:36 PM EDT) [facility] Influenza A PCR NEGATIVE Negative [facility] Influenza B PCR NEGATIVE Negative [facility] Resp Syncy Virus RNA Qual PCR NEGATIVE Negative [facility] SARS COV2 PCR NEGATIVE Negative [facility] Comment:All test results mus t [...] use by authorized laboratories.Testing performed on the [employer] GeneXpert utilizingreal-time RT-PCR.All SARS CoV2 and positive influenza A/B results arereported to [facility]. 02/04/2025 5:36 PM EDT 02/04/2025 5:41 PM EDT us Generic External Data Provider LAB MICROBIOLOGY - GENERAL ORDERABLES Final Result [facility] [address] [place] [address] [phone] * CBC auto differential (02/04/2025 5:36 PM EDT) Only the most recent of3 resultswithin the time period is included. White Blood Count 6.2 4.8 - 10.8 X10*3/uL [facility] Red Blood Count 4.69 4.20 - 5.50 X10*6/uL [facility] Hemoglobin 14.3 12.0 - 16.0 g/dl [facility] Hematocrit 41.7 37.0 - 47.0 % [facility] Mean Corpuscular Volume 88.9 80.0 - 98.0 fL [facility] Mean Corpuscular Hemoglobin 30.5 27.0 - 33.0 pg [facility] Mean Corpuscular HGB Conc 34.3 31.0 - 35.0 g/dl [facility] Red Cell Distribution Width 13.1 11.0 - 16.0 % [facility] Platelet Count 222 160 - 400 X10*3/uL [facility] Mean Platelet Volume 10.1 9.4 - 12.3 fL [facility] Neutrophils Percent Auto 51.0 45 - 73 % [facility] Imm Gran Pct Auto 0.2 0.0 - 0.4 % [facility] Lymphocytes Percent Auto 37.3 20 - 40 % [facility] Monocytes Percent Auto 7.1 2 - 11 % [facility] Eosinophils Percent Auto 3.4 0 - 4 % [facility] Basophils Percent Auto 1.0 0 - 2 % [facility] NRBC Pct Auto 0.0 0.0 - 0.2 /100WBC [facility] Neutrophils Absolute Auto 3.2 2.0 - 8.3 x10*3/uL [facility] Imm Gran Abs Auto 0.01 0.00 - 0.03 X10*3/uL [facility] Lymphocytes Absolute Auto 2.3 1.2 - 4.9 X10*3/uL [facility] Monocytes Absolute Auto 0.4 0.1 - 1.2 X10*3/uL [facility] Eosinophils Absolute Auto 0.2 0.0 - 0.4 X10*3/uL [facility] Basophils Absolute Auto 0.1 0.0 - 0.2 X10*3/uL [facility] NRBC Abs Auto 0.000 0.0 - 0.012 X10*3/uL [facility] 02/04/2025 5:36 PM EDT 02/04/2025 5:41 PM EDT Generic External Data Provider LAB BLOOD ORDERAB LES Final Result Performing Organization Address [facility]/ZIP Co de Phone Number [facility] [address] [place] [phone] * B Type Natriuretic Peptide (BNP) (02/04/2025 5:36 PM EDT) Only the most recent of2 resultswithin the time period is included. Pathologist [facility] B Type Natriuretic Peptide 14 <100 pg/mL [facility] 02/04/2025 5:36 PM EDT 02/04/2025 5:41 PM EDT us Generic External Data Provider LAB BLOOD ORDERAB LES Final Result Performing Organization Address [facility]/ZIP Co de Phone Number [facility] [address] [place] [phone] * (ABNORMAL) Comprehensive Metabolic Panel (02/04/2025 5:36 PM EDT) Pathologist [facility] Sodium 139 135 - 145 mmol/L [facility] Potassium 4.1 3.3 - 5.1 mmol/L [facility] Chloride 104 96 - 108 mmol/L [facility] Carbon Dioxide 26 22 - 29 mmol/L [facility] Anion Gap 13 12 - 20 [facility] Urea Nitrogen (BUN) 15 9 - 16 mg/dL [facility] Creatinine, Serum 0.74 0.5 - 1.4 mg/dL [facility] Creatinine Clr Calc Pharmacy 63.9 [facility] Comment:Provided height and weight: 157.48 cm,53.07 kg.eGFR (calculated from the MDRD study equation) and eCrCl(calculated from the Cockcroft-Gault equation) are based ondifferent parameters and may not yield comparable results.If eCrCl result is absurd, please check patient'sheight/weight. Estimated Glomerular Filt Rate >60 [facility] Comment:Chronic Kidney Disea se: Estimated GFR < 60 mL/min/1.68g7Pzrdms Kidney Disease: Estimated GFR < 15 mL/min/1.73m2 Glucose 106 60 - 115 mg/dL [facility] Calcium 9.6 8.4 - 10.2 mg/dL [facility] Bilirubin, Total 0.3 0.0 - 1.0 mg/dL [facility] Aspartate Amino Transferase 33(H) 5 - 31 U/L [facility] Alanine Aminotransferase 32(H) 0 - 31 U/L [facility] Total Protein 8.1(H) 6.5 - 8.0 g/dL [facility] Albumin Level 4.3 3.5 - 5.0 g/dL [facility] Alkaline Phosphatase 87 39 - 117 U/L [facility] 02/04/2025 5:36 PM EDT 02/04/2025 5:41 PM EDT us Generic External Data Provider LAB BLOOD ORDERAB LES Final Result [facility] [address] [place] [address] [phone] * Hemoglobin A1c (01/29/2025 8:31 AM EDT) Hemoglobin A1c 5.4 <6.0 % [facility] Comment:Hemoglobin A1C Refer ence Range Adults: 4.8 - 6.0 % Non diabetic: < 6.0 % Goal: < 7.0 %Additional Action Suggested: > 8.0 %Note: Hemoglobin A1c results are invalid for patients with abnormal amounts of HbF. Blood transfusions may impact the HbA1c concentration in the patient sample. Estimated Average Glucose 108 mg/dL [facility] Comment:eAG = Estimated ave rage glucose which is %A1C expressed asaverage glucose, using the formula of the E0M-VdeluyuWxiwlfr Glucose study (ADAG), Diabetes Care, Vol.31,#8,Jun. 2007 Blood Venous blood specimen / Unknown 01/29/2025 8:31 AM EDT 01/29/2025 11:21 AM EDT us Yanni Momin BANNER LAB BLOOD ORDERABLES Final Resul t [facility] [address] [place] [address] [phone] * MR Brain w/o Contrast (01/14/2025 6:32 PM EST) Anatomical Region Laterality Modality Brain Magnetic Resonan ce 01/14/2025 6:32 PM EST Narrative 01/14/2025 6:34 PM EST ? [facility] ?[address] ?[place] [address] ? Magnetic Resonance Report ? Signed ? Patient: Tiffany Vergara M ?MR#: [id number] ?? 91 ? : 1965 ?Acct:[id number] ? Age/Sex: 59 / F ?ADM Date: 03//25 ? Loc: [facility] ?459-1 ? Attending Dr: Rossi TORRES ? Ordering Physician: Rossi Rao ?? Date of Service: 01/14/25 ?? Procedure(s): MR head/brain wo con ?? Accession Number(s): [id number] ? cc: Rossi Rao; Maryana Winkler MD ? CLINICAL HISTORY: ?tia word finding difficulty aphasia ? MR of the brain without contrast ? Comparison: CT/SR - CT ANGIO HEAD NECK STROKE - 01/14/25 15:40 EST ?? CT/NM/SR - CT HEAD FOR STROKE - 01/14/25 15:35 EST ?? CT/SR - CT HEAD FOR STROKE [id number] - 03/08/17 18:47 EDT ? Findings: ?? [...] in OV> ? 01/14/25 1833 ? DD/ 183 ? TD/TT: 01/14/25 183 ? Digital Imager: ? Procedure Note La Murphy - 01/14/2025 [place] [address] Magnetic Resonance Report Signed Patient: Tiffany Vergara MMR#: [id number] 91 : 1965Acct:[id number] Age/Sex: 59 / FADM Date: 01/10/25 Loc: [facility] 459-[address]: Rossi TORRES Ordering Physician: Rossi Rao Date of Service: 01/14/25 Procedure(s): MR head/brain wo con Accession Number(s): [id number] cc: Rossi Rao; Maryana Winkler MD CLINICAL HISTORY: ?tia word finding difficulty aphasia MR of the brain without contrast Comparison: CT/SR - CT ANGIO HEAD NECK STROKE - 01/14/25 15:[address]/NM/SR - CT HEAD FOR STROKE - 01/14/25 15:[address]/SR - CT HEAD FOR STROKE [id number] - 03/08/17 18:47 EDT Findings: No acute [...] signed by Emely Bhakta MD in OV> 01/14/25 1833 DD/ 1832 TD/TT: 01/14/25 1832 Digital Imager: [facility] External Provider IMG MRI PROCEDURES Edited Result - Final * CT Head Stroke w/o Contrast (01/14/2025 3:42 PM EST) Anatomical Region Laterality Modality Computed Tomogra phy 01/14/2025 3:42 PM EST Narrative 01/14/2025 3:59 PM EST ? [facility] ?[address] ?[place] [address] ? CT Scan Report ? Signed ? Patient: Tiffany Vergara M ?MR#: [id number] ?? 91 ? : 1965 ?Acct:[id number] ? Age/Sex: 59 / F ?ADM Date: 03/01/25 ? Loc: [facility] ?459-1 ? Attending Dr: Rossi TORRES ? Ordering Physician: Rossi Rao ?? Date of Service: 01/14/25 ?? Procedure(s): CT head for STROKE ?? Accession Number(s): [id number] ? cc: Rossi Rao; Maryana Winkler MD ? Report Number: ?? [id number]: Total DLP = ??557.00 mGy-cm ?? EXAMINATION: [...] This critical result was discussed with physician podiatric assistant Rossi ?? Ranjit gramajo at 3:54 PM hours on January 14, 2025.. It was ?? ascertained that the content and urgency of the report was understood ?? at the time of direct communication. ? Electronically signed by: ??Paul Whitney MD ??01/14/2025 03:56 PM ?? EST RP ? Dictated By: ?Paul Godwin MD ? Signed By: ?<Electronically signed by Paul Almazan MD in OV> ? 01/14/25 1556 ? DD/ 1542 ? TD/TT: 01/14/25 1542 ? Digital Imager: ? Procedure Note Jeffrey, Image - 01/14/[address] [address] [address] Scan Report Signed Patient: Tiffany Vergara MMR#: [id number] 91 : 1965Acct:[id number] Age/Sex: 59 / FADM Date: 01/10/25 Loc: [facility] 459-[address]: Rossi TORRES Ordering Physician: Rossi Rao Date of Service: 01/14/25 Procedure(s): CT head for STROKE Accession Number(s): [id number] cc: Rossi Rao; Maryana Winkler MD Report Number: [id number]: Total DLP = 557.00 mGy-cm EXAMINATION: CT [...] This critical result was discussed with physician podiatric assistant Rossi gramajo at 3:54 PM hours on January 14, 2025.. It was ascertained that the content and urgency of the report was understood at the time of direct communication. Electronically signed by: Paul Whitney MD 01/14/2025 03:56 PM EST RP Dictated By: Paul Godwin MD Signed By: <Electronically signed by Paul Almazan MDin OV> 01/14/25 1556 DD/ 1542 TD/TT: 01/14/25 1542 Digital Imager: us [facility] External Provider IMG CT PROCEDURES Edited Result - Final * CTA Head Stroke w/ and w/o Contrast (01/14/2025 3:40 PM EST) Anatomical Region Laterality Modality Computed Tomogra phy 01/14/2025 3:40 PM EST Narrative 01/14/2025 4:15 PM EST ? [facility] ?[address] ?[place] [address] ? CT Scan Report ? Signed ? Patient: Tiffany Vergara M ?MR#: [id number] ?? 91 ? : 1965 ?Acct:[id number] ? Age/Sex: 59 / F ?ADM Date: 01/10/25 ? Loc: [facility] ?459-1 ? Attending Dr: Rossi TORRES ? Ordering Physician: Rossi Rao ?? Date of Service: 01/14/25 ?? Procedure(s): CT angio head neck STROKE ?? Accession Number(s): [id number] ? cc: Rossi Rao; Maryana Winkler MD ? Report Number: ?? [id number]: Total DLP = ??657.00 mGy-cm ?? EXAMINATION: [...] 04:13 PM EST RP ? Dictated By: ?Rmoan Warren MD ? Signed By: ?<Electronically signed by Roman Warren MD in OV> ?01/14/25 1613 ? DD/ 1540 ? TD/TT: 01/14/25 1558 ? Digital Imager: MSM ? Procedure Note Donotuseinterpreter, Image - 01/14/[address] [address] [address] Scan Report Signed Patient: Tiffany Vergara MMR#: [id number] 91 : 1965Acct:[id number] Age/Sex: 59 / FADM Date: 01/10/25 Loc: [facility] 459-[address]: Rossi TORRES Ordering Physician: Rossi Rao Date of Service: 01/14/25 Procedure(s): CT angio head neck STROKE Accession Number(s): [id number] cc: Rossi Rao; Maryana Winkler MD Report Number: [id number]: Total DLP = 657.00 mGy-cm EXAMINATION: CTA [...] 01/14/25 1613 DD/ 1540 TD/TT: 01/14/25 1558 Digital Imager: HARSHA [facility] External Provider IMG CT PROCEDURES Edited Result - Final * C-reactive Protein (01/10/2025 11:09 AM EST) C Reactive Protein 0.11 < or = 0.50 mg/dL [facility] 01/10/2025 11:0 9 AM EST 01/10/2025 11:12 AM EST Generic External Data Provider LAB BLOOD ORDERAB LES Final Result Performing Organization Address [facility]/ZIP Co de Phone Number [facility] [address] [place] [address] [phone] * (ABNORMAL) Basic Metabolic Panel (01/10/2025 11:09 AM EST) Sodium 142 135 - 145 mmol/L [facility] Potassium 3.6 3.3 - 5.1 mmol/L [facility] Chloride 111(H) 96 - 108 mmol/L [facility] Carbon Dioxide 22 22 - 29 mmol/L [facility] Anion Gap 13 12 - 20 [facility] Urea Nitrogen (BUN) 21(H) 9 - 16 mg/dL [facility] Creatinine, Serum 0.71 0.5 - 1.4 mg/dL [facility] Creatinine Clr Calc Pharmacy 62.2 [facility] Comment:Provided height and weight: 149.86 cm,52.2 kg.eGFR (calculated from the MDRD study equation) and eCrCl(calculated from the Cockcroft-Gault equation) are based ondifferent parameters and may not yield comparable results.If eCrCl result is absurd, please check patient'sheight/weight. Estimated Glomerular Filt Rate >60 [facility] Comment:Chronic Kidney Disea se: Estimated GFR < 60 mL/min/1.25y7Mkxtyz Kidney Disease: Estimated GFR < 15 mL/min/1.73m2 Glucose 202(H) 60 - 115 mg/dL [facility] Calcium 8.4 8.4 - 10.2 mg/dL [facility] 01/10/2025 11:0 9 AM EST 01/10/2025 11:12 AM EST Generic External Data Provider LAB BLOOD ORDERAB LES Final Result Performing Organization Address [facility]/ZIP Co de Phone Number [facility] [address] [place] [address] [phone] * Hm Mammography (10/27/2024 10:28 AM EST) Anatomical Region Laterality Modality Other us Historical Provider HEALTH MAINTENANCE Final Result * THINPREP TIS PAP AND HPV mRNA E6/E7, CT/NG, TRICH (01/16/2022 1:29 PM EST) Chlamydia trachomatis RNA, TMA, Urogenital NOT DETECTED NOT DETECTED [facility] Clinical Information: None given [facility] COMMENT SEE COMMENT [facility] Comment: The analytical performance characteristics of this assay, when used to test SurePath(TM) specimens have been determined by [employer]. The modifications have not been cleared or approved by the FDA. This assay has been validated pursuant to the CLIA regulations and is used for clinical purposes. ?? For additional information, please refer to https://SelSahara.[employer]/faq/ZLV994 (This link is being provided for information/ [...] has been evaluated with computer assisted technology. [facility] Incident Response Engineer: SEE COMMENT [facility] Comment: RXB, CT(ASCP) CT screening location: [address] ??[address] HPV nRNA E6/E7 Not Detected Not Detected [facility] Comment: Methodology: [place] Planning Manager-Mediated Amplification This assay detects E6/E7 viral messenger RNA (mRNA) from 14 high-risk HPV types (16,18,31,33,35,39,45,51,52,56,58,59,66,68). ? The analytical performance characteristics of this assay have been determined by [employer]. The modifications have not been cleared or approved by the FDA. This assay has been validated pursuant to the CLIA regulations and is used for clinical purposes. ?? For additional information, please refer to http://education.[facility]/faq/OMU902v6 (This link if provided for information/ educational [...] of this assay have been determined by [employer]. The modifications have not been cleared or approved by the FDA. This assay has been validated pursuant to the CLIA regulations and is used for clinical purposes. ?? For additional information, please refer to http://Rally Fit/ faq/Trichomonastma (This link is being provided for information/ educational purposes only.) ?? 01/16/2022 1:29 PM EST Maryana Winkler MD LAB PATHOLOGY ORDERABLES Final R esult [facility] [address] * HEPATITIS C AB W/REFL TO HCV RNA, QN, PCR (10/24/2021 8:20 AM EST) HEPATITIS C ANTIBODY NON-REACT IMTIAZ NON-REACT IMTIAZ [facility] INDEX 0.02 <1.00 [facility] Comment: ?? HCV antibody was non-reactive. There is no laboratory ?? evidence of HCV infection. ?? In most cases, no further action is required. However, if recent HCV exposure is suspected, a test for HCV RNA (test code 47875) is suggested. ?? For additional information please refer to http://Rally Fit/faq/FUZ09f0 (This link is being provided for informational/ educational purposes only.) ?? 10/24/2021 8:20 AM EST Maryana Winkler MD HISTORICAL/NON ORDERABLE LABS Fi nal Result Performing Organization Address [facility] Number [facility] [address] * HIV 1/2 ANTIGEN/ANTIBODY,FOURTH GENERATION W/RFL (10/24/2021 8:20 AM EST) HIV-1/2 ANTIGEN AND ANTIBODIES, 4TH GENERATION W/ REFLEX NON-REACT IMTIAZ NON-REACT IMTIAZ [facility] Comment: HIV-1 antigen and HIV-1/HIV-2 [...] ? For additional information please refer to http://education.Prixel.DynaPump/faq/NPS009 (This link is being provided for informational/ educational purposes only.) ? The performance of this assay has not been clinically validated in patients less than 2 years old. ?? 10/24/2021 8:20 AM EST Maryana Winkler MD LAB BLOOD ORDERABLES Final Resul t Performing Organization Address [facility] Phone Number [facility] [address] * (ABNORMAL) Hm Colonoscopy (2016) Colonoscopy Normal(A) Normal 2016 Estee Smith [facility] MAINTENANCE Edited Result - Final from Last 3 Months or Most Recently Relevant to Health Maintenance Insurance [facility] [address] [id number] [facility] Advance Directives Documents on File Type Date Recorded 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
--- OUTSIDE RECORDS SUMMARY | 2025-03-11 09:10 | XMS_ITS | Encounter Summary ---
Author Organization [employer] Address [address] [facility] 7 [place] [address] Care Team Providers Care Central Supply Technician Supervisor Name Role Phone Maryana Winkler MD Primary Care Provider [phone] Reason for Visit * Reason Onset Date Comments Appointment Request 01/19/2025 Encounter Details Date Type Department Care Team ([facility] Contact Info) Description 01/19/2025 Telephone [facility] [address], [place] [phone] Maryana Winkler MD [address] [place], [place] [phone] Appointment Request Social History Tobacco Use Types [...] appt with PCP. Reports was admitted at [facility] 01/10-01/15 for anaphylactic shock after consuming suzie [...] Description 04/09/2025 11:00 AM EDT Office Visit [facility] [address], [place] [phone] [place], [place] [address] [place] [address] 11/30/2025 9:00 AM EST Medication Management [facility] [address] [place] [address] documented as of this encounter Visit Diagnoses Not on filedocumented in this encounter Additional Health Concerns Assessment Noted Time PHQ-9 Depression Total Score: 13 024 11:34 AM EST documented as of this encounter Care Teams Central Supply Technician Supervisor Relationship Specialty Start Date End Date Maryana Winkler MD [address] [place] [address] PCP - General Family Medicine 11/12/18 documented as of this encounter
--- OUTSIDE RECORDS SUMMARY | 2025-03-11 09:10 | XMS_ITS | Encounter Summary ---
Author Organization [employer] Address [address] [facility] 7[address] [place] [address] Care Team Providers Care Fusing Machine Operator Name Role Phone Maryana Winkler MD Primary Care Provider [phone] Encounter Details Date Type Department Care Team (Late st Contact Info) Description 11/18/[address] [facility] [address] [place] [address] ProviderCristopher MD Social History Tobacco Use Types [...] the past 12 months, has t he maufait, gas, oil or water company threatened to [...] Description 04/09/2025 11:00 [address] EDT [address] [facility] [address] [place] [address] [employer] [place] [address] [place] [address] 11/30/2025 9:00 AM EST Medication Management [facility] [address] [place] [address] documented as of this encounter Procedures Procedure [...] documented as of this encounter Care Teams Fusing Machine Operator Relationship Specialty Start Date End Date Maryana Winkler MD [address] [place] [address] PCP - General Family Medicine 11/12/18 documented as of this encounter
[2025-03-11 11:47] LABS: Alanine Aminotransferase 33 U/L (0-31); Albumin Level 4.1 g/dL (3.5-5.0); Alkaline Phosphatase 75 U/L (39-117); Aspartate Amino Transferase 45 U/L (5-31); Bilirubin Direct 0.2 mg/dL (0.0-0.5); Bilirubin Total 0.5 mg/dL (0.0-1.0); Total Protein 7.5 g/dL (6.5-8.0)
[2025-03-12 15:14] LABS: Hepatitis B Viral DNA Qn - cp 2.38 Log IU/mL (NOT DETECTED); Hepatitis B Viral DNA Qn-IU/mL 241 IU/mL (NOT DETECTED)
== END 2025-03-11 08:49 | disposition home or self-care (01) ==
LOC: HO.HHCL 08:48
PROVIDERS: Visit Provider Family Medicine
DX: B18.1 Chronic viral hepatitis B without delta-agent (principal); R74.01 Elevation of levels of liver transaminase levels
CPT/HCPCS: 36415; 80076; 87517

== ENCOUNTER 2025-03-16 08:43 | Outpatient (REF) | payer OTHER, SELFPAY ==
--- OUTSIDE RECORDS SUMMARY | 2025-03-16 09:09 | XMS_ITS | Encounter Summary ---
Author Organization [employer] Address [address] [place] [address] 7[address] [place] [address] Care Team Providers Care Strike Planning Applications Name Role Phone Maryana Winkler MD Primary Care Provider [phone] Reason for Visit * Reason Comments Med Refill Encounter Details Date Type Department Care Team (Late Contact Info) Description 07/23/2023 Refill [facility] [address] [place], [place] [phone] Maryana Winkler MD [address] [place] [address] Allergic rhinitis, unspecified seasonality, unspecified trigger Social [...] 04/09/2025 11:00 AM EDT Office Visit [facility] [address] [place], [place] [phone] Werner [place]aris [address] [place] [address] 11/30/2025 9:00 AM EST Medication Management [facility] [address] [place] [address] documented as of this encounter Visit Diagnoses Diagnosis Allergic rhinitis, unspecified seasonality, unspecified trigger documented in this encounter Additional Health Concerns Assessment Noted Time PHQ-9 Depression Total Score: 4 12/14/19 23 9:31 AM EST documented as of this encounter Care Teams Strike Planning Applications Relationship Specialty Start Date End Date Maryana Winkler MD [address] [place] [address] PCP - General Family Medicine 11/12/18 documented as of this encounter
--- OUTSIDE RECORDS SUMMARY | 2025-03-16 09:09 | XMS_ITS | Encounter Summary ---
Author Organization [employer] Address [address] [place] [address] 7[address] [place] [address] Care Team Providers Care Journeyman Powerhouse Operator Name Role Phone Maryana Winkler MD Primary Care Provider [phone] Encounter Details Date Type Department Care Team (Late st Contact Info) Description 05/23/2023 Orders Only [facility] MEDICINE [address] [place] [address] [phone] Provider, MD Cristopher Social History Tobacco Use [...] Description 04/09/2025 11:00 AM EDT Office Visit [facility] ADULT DENTAL [address], [place] [phone] Enid Henry [address] [place] [address] 11/30/2025 9:00 AM EST Medication Management [facility] MEDICINE [address] [place] [address] documented as of this encounter Procedures Procedure [...] EST) Vitamin D, 25-OH, D2 6 ng/mL [facility] Comment:This test was develo ped and its analytical performancecharacteristics have been determined by [employer] [place], [place]. It hasnot been cleared or approved by the U.S. Food and DrugAdministration. This assay has been validated pursuantto the CLIA regulations and is used for clinicalpurposes.THIS TEST WAS PERFORMED AT:[employer] [id number] [place] [address]MOTDJKJSAM WELLS MD,PHD Vitamin D, 25-OH, D3 20 ng/mL [facility] Comment:This test was develo ped and its analytical performancecharacteristics have been determined by [employer] [place], [place]. It hasnot been cleared or approved by the U.S. Food and DrugAdministration. This assay has been validated pursuantto the CLIA regulations and is used for clinicalpurposes. Vitamin D, 25-OH, Total 26(A) 30 - 100 ng/mL [facility] Comment:Vitamin D, 25-Hydrox y reports concentrations [...] = 30 ng/mL.For additional information, please refer tohttp://education.Identyx/faq/LWH625(This link is being provided for informational/educational purposes only.) 01/16/2024 8:44 AM EST 01/16/2024 11:23 AM EST us Generic External Data Provider LAB BLOOD ORDERAB LES Final Result Performing Organization Address [facility]/ZIP Co de Phone Number [facility] [address] [place] [phone] * Urine electrolytes (12/20/2023 10:49 PM EST) Chloride Urine Random <20.0 mmol/L [facility] Sodium Urine Random 44.0 mmol/L [facility] Potassium Urine Random 7.7 mmol/L [facility] 12/20/2023 10:4 9 PM EST 12/20/2023 10:53 PM EST us Generic External Data Provider LAB URINE ORDERAB LES Final Result Performing Organization Address [facility]/ZIP Co de Phone Number [facility] [address] [place] [phone] * Urinalysis w/reflex microscopic (12/20/2023 10:49 PM EST) Pathologist [facility] Color Urine Yellow [facility] Appearance Urine Clear [facility] PH 8.0 5.0 - 9.0 [facility] Glucose Urine UA Negative Negative mg/dL [facility] Urine Blood Negative Negative [facility] Specific [place] - Urine 1.010 1.005 - 1.025 [facility] Urine Protein Negative Neg-Trace mg/dL [facility] Urine Ketones Negative Negative mg/dL [facility] Nitrite Urine Negative Negative [facility] Leukocyte Esterase Urine Negative Negative [facility] 12/20/2023 10:4 9 PM EST 12/20/2023 10:53 PM EST Narrative [facility] - 12/20/2023 10:56 PM EST [id number], Clean Catch Generic External Data Provider LAB URINE ORDERAB LES Final Result Performing Organization Address [facility]/ZIP Co de Phone Number [facility] [address] [place] [phone] * Electrolyte Panel (12/20/2023 10:40 PM EST) [facility] Sodium 139 135 - 145 mmol/L [facility] Potassium 3.4 3.3 - 5.1 mmol/L [facility] Chloride 103 96 - 108 mmol/L [facility] Carbon Dioxide 27 22 - 29 mmol/L [facility] Anion Gap 12 12 - 20 [facility] 12/20/2023 10:4 0 PM EST 12/20/2023 10:43 PM EST us Generic External Data Provider LAB BLOOD ORDERAB LES Final Result Performing Organization Address [facility]/ZIP Co de Phone Number [facility] [address] [place] [phone] * Magnesium (12/20/2023 4:46 PM EST) Magnesium 2.1 1.6 - 2.6 mg/dL [facility] 12/20/2023 4:46 PM EST 12/20/2023 4:49 PM EST us Generic External Data Provider LAB BLOOD ORDERAB LES Final Result [facility] [address] [place] [phone] * (ABNORMAL) Comprehensive Metabolic Panel (12/20/2023 4:46 PM EST) Sodium 136 135 - 145 mmol/L [facility] Potassium 2.6(LL) 3.3 - 5.1 mmol/L [facility] Comment:Critical value for t est(s): POTS Results called to and readback by: JAYLAN Person calling: SALIERD Date: 12/20/23 Time:1707 Chloride 98 96 - 108 mmol/L [facility] Carbon Dioxide 28 22 - 29 mmol/L [facility] Anion Gap 13 12 - 20 [facility] Urea Nitrogen (BUN) 10 9 - 16 mg/dL [facility] Creatinine, Serum 0.84 0.5 - 1.4 mg/dL [facility] Creatinine Clr Calc Pharmacy 49.1 [facility] Comment:Provided height and weight: 149.86 cm,49.5 kg.eGFR (calculated from the MDRD study equation) and eCrCl(calculated from the Cockcroft-Gault equation) are based ondifferent parameters and may not yield comparable results.If eCrCl result is absurd, please check patient'sheight/weight. Estimated Glomerular Filt Rate >60 [facility] Comment:NOTE: For -Am erican individuals, multiply the result by 1.210.Chronic Kidney Disease: Estimated GFR < 60 mL/min/1.32i3Ftinep Kidney Disease: Estimated GFR < 15 mL/min/1.73m2 Glucose 155(H) 60 - 115 mg/dL [facility] Calcium 9.2 8.4 - 10.2 mg/dL [facility] Bilirubin, Total 0.4 0.0 - 1.0 mg/dL [facility] Aspartate Amino Transferase 24 5 - 31 U/L [facility] Alanine Aminotransferase 14 0 - 31 U/L [facility] Total Protein 7.3 6.5 - 8.0 g/dL [facility] Albumin Level 4.1 3.5 - 5.0 g/dL [facility] Alkaline Phosphatase 72 39 - 117 U/L [facility] 12/20/2023 4:46 PM EST 12/20/2023 4:49 PM EST us Generic External Data Provider LAB BLOOD ORDERAB LES Final Result [facility] [address] [place] [phone] * (ABNORMAL) CBC auto differential (12/20/2023 4:46 PM EST) White Blood Count 6.9 4.8 - 10.8 X10*3/uL [facility] Red Blood Count 4.79 4.20 - 5.50 X10*6/uL [facility] Hemoglobin 14.7 12.0 - 16.0 g/dl [facility] Hematocrit 41.3 37.0 - 47.0 % [facility] Mean Corpuscular Volume 86.2 80.0 - 98.0 fL [facility] Mean Corpuscular Hemoglobin 30.7 27.0 - 33.0 pg [facility] Mean Corpuscular HGB Conc 35.6(H) 31.0 - 35.0 g/dl [facility] Red Cell Distribution Width 12.7 11.0 - 16.0 % [facility] Platelet Count 158(L) 160 - 400 X10*3/uL [facility] Mean Platelet Volume 9.4 9.4 - 12.3 fL [facility] Neutrophils Percent Auto 57.1 45 - 73 % [facility] Imm Gran Pct Auto 0.1 0.0 - 0.4 % [facility] Lymphocytes Percent Auto 33.5 20 - 40 % [facility] Monocytes Percent Auto 6.8 2 - 11 % [facility] Eosinophils Percent Auto 1.9 0 - 4 % [facility] Basophils Percent Auto 0.6 0 - 2 % [facility] NRBC Pct Auto 0.0 0.0 - 0.2 /100WBC [facility] Neutrophils Absolute Auto 4.0 2.0 - 8.3 x10*3/uL [facility] Imm Gran Abs Auto 0.01 0.00 - 0.03 X10*3/uL [facility] Lymphocytes Absolute Auto 2.3 1.2 - 4.9 X10*3/uL [facility] Monocytes Absolute Auto 0.5 0.1 - 1.2 X10*3/uL [facility] Eosinophils Absolute Auto 0.1 0.0 - 0.4 X10*3/uL [facility] Basophils Absolute Auto 0.0 0.0 - 0.2 X10*3/uL [facility] NRBC Abs Auto 0.000 0.0 - 0.012 X10*3/uL [facility] 12/20/2023 4:46 PM EST 12/20/2023 4:49 PM EST us Generic External Data Provider LAB BLOOD ORDERAB LES Final Result Performing Organization Address City/State/[facility] Co de Phone Number [facility] [address] [place] [phone] * US Abdomen Complete (05/23/2023 9:54 AM EDT) Anatomical Region Laterality Modality Abdomen Ultrasound 05/23/2023 9:54 AM EDT Narrative 05/26/2023 12:12 PM EDT ? [facility] ?[address] ?[place] [address] ? Ultrasound Report ? Signed ? Patient: Neifa,Tiffany M ?MR#: [id number] ?? 89 ? : 1965 ?Acct:[id number] ? Age/Sex: 58 / F ?ADM Date: 05/23/23 ? Loc: HO.US ? Attending Dr: Maryana Winkler MD ? Ordering Physician: Maryana Winkler MD ?? Date of Service: 05/23/23 ?? Procedure(s): US abdomen complete ?? Accession Number(s): [id number] ? cc: Maryana Winkler MD ? EXAMINATION: [...] ? DD/DT: 05/23/ 0954 ? TD/TT: ? Insurance Premium Auditor: SS ? Procedure Note Jeffrey, Image - 05/26/[address] [address] Ultrasound Report Signed Patient: Tiffany Vergara MMR#: [id number] 91 : 1965Acct:[id number] Age/Sex: 58 / FADM Date: 05/23/23 Loc: HO.US Attending Dr: Maryana Winkler MD Ordering Physician: Maryana Winkler MD Date of Service: 05/23/23 Procedure(s): US abdomen complete Accession Number(s): [id number] cc: Maryana Winkler MD EXAMINATION: US ABDOMEN [...] in OV> 05/26/23 1209 DD/ 0954 TD/TT: Insurance Premium Auditor: COR[place] us [facility] External Provider IMG US PROCEDURES Edited Result - Final * Hm Mammography (04/03/2023) Anatomical Region Laterality Modality Other us Historical Provider HEALTH MAINTENANCE Final Result documented in this encounter Visit Diagnoses Not on filedocumented in this encounter Additional Health Concerns Assessment Noted Time PHQ-9 Depression Total Score: 4 12/14/19 23 9:31 AM EST documented as of this encounter Care Teams Journeyman Powerhouse Operator Relationship Specialty Start Date End Date Maryana Winkler MD [address] [place] [address] PCP - General Family Medicine 11/12/18 documented as of this encounter
--- OUTSIDE RECORDS SUMMARY | 2025-03-16 09:09 | XMS_ITS | Encounter Summary ---
Author Organization [employer] Address [address] [facility] [address]t [place] [address] Care Team Providers Care Dinkey Press Operator Name Role Phone Maryana Winkler MD Primary Care Provider [phone] Reason for Visit * Reason Comments Med Refill Encounter Details Date Type Department Care Team ([facility] st Contact Info) Description 08/13/2024 Refill [facility] MEDICINE [address] [place], [place] [phone] Maryana Winkler MD [address] [place], [place] [phone] Social History Tobacco Use Types Packs/Day Years [...] [facility] ADULT DENTAL [address] [place] [address] Enid Henry [address] [place] [address] 11/30/2025 9:00 AM EST Medication Management [facility] MEDICINE [address] [place] [address] documented as of this encounter Visit Diagnoses Not on filedocumented in this encounter Additional Health Concerns Assessment Noted Time PHQ-9 Depression Total Score: 13 024 11:34 AM EST documented as of this encounter Care Teams Dinkey Press Operator Relationship Specialty Start Date End Date Maryana Winkler MD [address] [place] [address] PCP - General Family Medicine 11/12/18 documented as of this encounter
--- OUTSIDE RECORDS SUMMARY | 2025-03-16 09:09 | XMS_ITS | Encounter Summary ---
Author Organization [employer] Address [address] [place] [address] 7 [place] [address] Care Team Providers Care Director Of Agriculture Name Role Phone Maryana Winkler MD Primary Care Provider [phone] Encounter Details Date Type Department Care Team (Late st Contact Info) Description 07/17/2023 Abstract [facility] MEDICINE [address] [place], [place] [phone] Maryana Winkler MD [address] [place], [place] [phone] Social History Tobacco Use Types Packs/Day Years [...] Description 04/09/2025 11:00 AM EDT Office Visit [facility] ADULT DENTAL [address] [place], [place] [phone] Enid Henry [address] [place] [address] 11/30/2025 9:00 AM EST Medication Management [facility] MEDICINE [address] [place] [address] documented as of this encounter Visit Diagnoses Not on filedocumented in this encounter Additional Health Concerns Assessment Noted Time PHQ-9 Depression Total Score: 4 12/14/19 23 9:31 AM EST documented as of this encounter Care Teams Director Of Agriculture Relationship Specialty Start Date End Date Maryana Winkler MD [address] [place] [address] PCP - General Family Medicine 11/12/18 documented as of this encounter
--- OUTSIDE RECORDS SUMMARY | 2025-03-16 09:09 | XMS_ITS | Encounter Summary ---
Author Organization [employer] Address [address] [facility] [address]t [place] [address] Care Team Providers Care Appliance Counselor Name Role Phone Maryana Winkler MD Primary Care Provider [phone] Encounter Details Date Type Department Care Team (Late st Contact Info) Description 01/11/2025 Orders Only [facility] MEDICINE [address] [place], [place] [phone] Maryana Winkler MD [address] [place] [address] Acute right ankle pain Social History Tobacco [...] Description 04/09/2025 11:00 AM EDT Office Visit [facility] ADULT DENTAL [address] [place] [address] CarlEnid crawford [address] [place] [address] 11/30/2025 9:00 AM EST Medication Management [facility] MEDICINE [address] [place] [address] documented as of this encounter Visit Diagnoses Diagnosis Acute right ankle pain documented in this encounter Additional Health Concerns Assessment Noted Time PHQ-9 Depression Total Score: 13 024 11:34 AM EST documented as of this encounter Care Teams Appliance Counselor Relationship Specialty Start Date End Date Maryana Winkler MD [address] [place] [address] PCP - General Family Medicine 11/12/18 documented as of this encounter
--- OUTSIDE RECORDS SUMMARY | 2025-03-16 09:09 | XMS_ITS | Encounter Summary ---
Author Organization [employer] Address [address] [facility] [address] [place] [address] Care Team Providers Care Physics Tutor Name Role Phone Maryana Winkler MD Primary Care Provider [phone] Reason for Visit * Reason Onset Date Comments Appointment Request 01/19/2025 Encounter Details Date Type Department Care Team ([facility] Contact Info) Description 01/19/2025 Telephone [facility] MEDICINE [address] [place], [place] [phone] Maryana Winkler MD [address] [place], [place] [phone] Appointment Request Social History Tobacco Use Types [...] appt with PCP. Reports was admitted at [facility] 01/10-01/15 for anaphylactic shock after consuming suzie [...] Description 04/09/2025 11:00 AM EDT Office Visit [facility] ADULT DENTAL [address] [place], [place] [phone] Carl, [place] [address] [place] [address] 11/30/2025 9:00 AM EST Medication Management [facility] MEDICINE [address] [place] [address] documented as of this encounter Visit Diagnoses Not on filedocumented in this encounter Additional Health Concerns Assessment Noted Time PHQ-9 Depression Total Score: 13 024 11:34 AM EST documented as of this encounter Care Teams Physics Tutor Relationship Specialty Start Date End Date Maryana Winkler MD [address] [place] [address] PCP - General Family Medicine 11/12/18 documented as of this encounter
--- OUTSIDE RECORDS SUMMARY | 2025-03-16 09:09 | XMS_ITS | Encounter Summary ---
Author Organization [employer] Address [address] [place] [address] 7 [place] [address] Care Team Providers Care Winch Runner Name Role Phone Maryana Winkler MD Primary Care Provider [phone] Encounter Details Date Type Department Care Team (Latest Contact Info) Description 03/27/2019 Abstract [facility] CONVERSIONS Dental, Provider, DDS Social History [...] Description 04/09/2025 11:00 AM EDT Office Visit [facility] ADULT DENTAL [address] [place] [address] Werner Henryaris [address] [place] [address] 11/30/2025 9:00 AM EST Medication Management [facility] MEDICINE [address] [place] [address] documented as of this encounter Visit Diagnoses Not on filedocumented in this encounter Care Teams Winch Runner Relationship Specialty Start Date End Date Maryana Winkler MD [address] [place] [address] PCP - General Family Medicine 11/12/18 documented as of this encounter
--- OUTSIDE RECORDS SUMMARY | 2025-03-16 09:09 | XMS_ITS | Clinical Summary ---
Author Organization [employer] Address [address] [place] [address] [address] [place] [address] Care Team Providers Care Entertainment Reporter Name Role Phone Maryana Winkler MD Primary Care Provider [phone] Allergies Active Allergy Reactions Criticality Noted Date Comments [employer] Oil Anaphylaxis High 12/07/2023 Juan Oil (Salvia [...] EDT): - carry epi-pen - referred to gis specialist Chronic headache 02/09/2025 Assessment & Plan [...] reduction - continue following with recommendation from [facility] provider Transaminitis 02/09/2025 Food allergy 01/28/2025 Overview [...] left eyelid and likely bl allergic conjunctivitis -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 Smitha Greene at [facility] -continue following with recommendations by Orthopedist -no longer in cast -Continue occupational therapy Assessment & Plan (02/08/2023 1:33 PM EDT): S/p surgery on 01/25/23 -continue following with recommendations by Orthopedist -currently in cast -pt would benefit from GRIP WRAPPER services Closed displaced fracture of proximal phalanx [...] Plan (12/24/2023 5:49 AM EST): Following with [facility] Overage Shortage And Damage Clerk, last seen in Jun 2023 -Patient was Prescribed Baclofen as visit - continue baclofen - continue lidoderm patches - continue Diclofenac gel - continue acetaminophen prn - judiciously use Ibuprofen/Motrin/Naproxen - continue Gabapentin - recommended to contact Overage Shortage And Damage Clerk regarding MRI Scheduling - Overage Shortage And Damage Clerk is planning to place a Peripheral Nerve Stimulator after MRI Scan Assessment & Plan (04/30/2023 7:37 PM EDT): Following with [facility] Overage Shortage And Damage Clerk, last seen on 04/02/23 -Patient was Prescribed Baclofen as visit - continue baclofen - continue lidoderm patches - continue Diclofenac gel - continue acetaminophen prn - judiciously use Ibuprofen/Motrin/Naproxen - continue Gabapentin - recommended to contact O[facility] Shortage And Damage Clerk regarding MRI Scheduling - Overage Shortage And Damage Clerk is planning to place a Peripheral Nerve Stimulator after MRI Scan Irritable bowel syndrome 08/17/2015 Assessment & Plan (11/11/2024 12:37 PM EST): -following with [facility] GI, last seen in Oct 2023 -prescribed simethicone, metoclopramide, and Linzess -continue current treatment plan per GI Assessment & Plan (12/24/2023 5:46 AM EST): -following with [facility] GI, last seen in Oct 2023 -prescribed simethicone, metoclopramide, and Linzess -continue current treatment plan per GI Assessment & Plan (02/18/2023 7:30 AM EDT): -following with [facility] GI, last seen in Oct 2022 -prescribed [...] Assessment & Plan (11/21/2024 12:25 PM EST): -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 Encouraged to continue -Encouraged to try Taichi and Yoga as recommended Assessment & Plan (03/18/2024 9:37 AM EDT): -Recording Artist: [facility], last visit in 01/22/24 -referred to orthopedist and painter ordnance -previously taking hydroxychloroquine for possible inflammatory arthritis (Hx LAZARO and RF positive), and it was discontinued by new pearl restorer -Patient was interested in CBD treatment previously -Pt has tried physical therapies several times -patient is attending acupuncture. -Encouraged to try Taichi and Yoga as recommended -Cont attending Acupuncture, since doing well. Assessment & Plan (12/24/2023 5:50 AM EST): -Recording Artist: [facility], last visit in 01/18/23 -referred to orthopedist and painter ordnance -previously taking hydroxychloroquine for possible inflammatory arthritis (Hx LAZARO and RF positive), and it was discontinued by new pearl restorer -Patient was interested in CBD treatment previously -Pt has tried physical therapies several times -patient is attending acupuncture. -Encouraged to try Taichi and Yoga as recommended -Cont attending Acupuncture, since doing well. Assessment & Plan (04/23/2023 11:54 AM EDT): -Recording Artist: [facility], last visit in 01/18/23 -Discontinued Plaquenil -referred to orthopedist and painter ordnance -still taking hydroxychloroquine for possible inflammatory arthritis (Hx LAZARO and RF positive) -Patient was interested in CBD treatment previously -Pt has tried physical therapies several times -patient is attending acupuncture. -Encouraged to try Taichi and Yoga as recommended -Cont attending Acupuncture, since doing well. 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 - well-controlled recently - change Flovent to Asmanex - continue montelukast - continue albuterol HFA and DuoNeb prn as rescue. - consider another pulmonary fxn test or sleep study if pt continue to has dyspnea - follow up in 3-4 mo Assessment & Plan (07/22/2024 9:56 AM EDT): - Seen by her polygraph operator in Aug 2015. - well-controlled recently - change Flovent to Asmanex - continue montelukast - continue albuterol HFA and DuoNeb prn as rescue. - consider another pulmonary fxn test or sleep study if pt continue to has dyspnea - follow up in 3-4 mo Assessment & Plan (03/18/2024 9:25 AM EDT): - Seen by her polygraph operator in Aug 2015. - well-controlled recently - change Flovent to Asmanex - continue montelukast - continue albuterol HFA and DuoNeb prn as rescue. - consider another pulmonary fxn test or sleep study if pt continue to has dyspnea - follow up in 3-4 mo Assessment & Plan (12/24/2023 5:37 AM EST): - Seen by her polygraph operator in Aug 2015. - well-controlled recently - change Flovent to Asmanex - continue montelukast - continue albuterol HFA and DuoNeb prn as rescue. - consider another pulmonary fxn test or sleep study if pt continue to has dyspnea - follow up in 3-4 mo Assessment & Plan (04/30/2023 7:31 PM EDT): - Seen by her polygraph operator in Aug 2015. - well-controlled recently - continue Flovent to 2 puff twice daily and Singulair as maintenance. - continue albuterol HFA and DuoNeb prn as rescue. - consider another pulmonary fxn test or sleep study if pt continue to has dyspnea - follow up in 3-4 mo Assessment & Plan (02/08/2023 1:35 PM EDT): Seen by her polygraph operator in Aug 2015. increase Flovent to 2 puff twice daily and Singulair as maintenance. Continue albuterol HFA and DuoNeb prn as rescue. -consider another pulmonary fxn test or sleep study if pt continue to has dyspnea Allergic rhinitis 02/19/2014 Assessment & Plan (12/24/2023 5:54 AM EST): - continue montelukast and antihistamine Constipation 08/15/2013 Assessment & Plan (11/11/2024 12:36 PM EST): Following with [facility] GI Fiber rich diet Continue Dulcolax and Linzess Assessment & Plan (12/24/2023 5:45 AM EST): Following with [facility] GI Fiber rich diet Continue Dulcolax and [...] Plan (11/11/2024 12:37 PM EST): -Following with [facility] GI, last seen in Oct 2023 -Continue Dexilant as prescribed by GI Assessment & Plan (12/24/2023 5:46 AM EST): -Following with [facility] GI, last seen in Oct 2023 -Continue Dexilant as prescribed by GI Assessment & Plan (02/18/2023 7:29 AM EDT): -Following with [facility] GI, last seen in Oct 2022 -Continue [...] Type Department Care Team Description 03/08/2025 Refill [facility] [address] [place] [address] Maryana Winkler MD 03/05/2025 9:00 AM EDT Office Visit [facility] [address] [place] [phone] Elzbieta Wells MD Fibromyalgia (Primary Dx); Generalized anxiety disorder 03/05/2025 Travel 03/03/2025 9:00 AM EDT Office Visit [facility] [address] [place] [phone] Elzbieta Wells MD Fibromyalgia (Primary Dx) 03/03/[address] [address] Maryana Winkler MD rafael 03/03/2025 Travel 02/26/2025 9:00 AM EDT Office Visit [address] [address] Elzbieta Wells MD Fibromyalgia (Primary Dx); Generalized anxiety disorder 02/26/2025 Travel 02/25/2025 Telephone [facility] [address] [place] [phone] Maryana Winkler MD Referral 02/20/2025 Refill [facility] [address] [place] [phone] Maryana Winkler MD 02/18/2025 Telephone [facility] [address] [place] [phone] Maryana Winkler MD 02/09/2025 3:00 PM EDT Office Visit [facility] [address] Maryana Winkler MD Chronic nonintractable headache, unspecified headache type (Primary Dx); Transaminitis; Chronic type B viral hepatitis (CMS/HCC); Migraine without aura and without status migrainosus, not intractable; Depressive disorder; Hypotension, unspecified hypotension type; Hx of anaphylactic shock 02/09/2025 Travel 02/09/2025 [address] [place] [address] Maryana Winkler MD 02/09/[address] [address] Delia Almazan, CONTOUR PATH TAPE MILL OPERATOR Follow-up 02/09/[address] [address] Maryana Winkler MD Appointment Request 02/04/2025 4:00 PM EDT Office Visit [facility] [place] [address] Harinder Coleman MD Shortness of breath at rest (Primary Dx) 02/04/2025 Orders Only GENERIC EXTERNAL DATA DEPARTMENT Provider, Generic External Data 01/28/2025 2:30 PM EDT Office Visit [facility] [place] [address] Yanni Momin ANP Anaphylaxis, subsequent encounter (Primary Dx); Food allergy; Hospital discharge follow-up; Hypotension, unspecified hypotension type; Migraine without aura and without status migrainosus, not intractable; Dyspnea on exertion; Elevated glucose level 01/28/2025 Travel 01/22/2025 Refill [facility] [place] [address] Tosin Stinson, PharmD 01/19/[address] [address] Maryana Winkler MD Appointment Request 01/19/[address] [address] Maryana Winkler MD 01/11/2025 Orders Only [facility] [address] [place] [address] Maryana Winkler MD Acute right ankle pain [...] Description 04/09/2025 11:00 AM EDT Office Visit [facility] [address], [place] [phone] Werner Henryaris [address] [place] [address] 11/30/2025 9:00 AM EST Medication Management [facility] [address] [place] [address] Health Maintenance Due Date Last Done Comments [...] Procedure Name Priority Date/Time Associated Diagnosis Comments HEPATIC FUNCTION PANEL Routine 8:50 AM EDT Transaminitis Chronic type B viral hepatitis (CMS/HCC) HEPATITIS B VIRUS DNA, QN, REAL TIME PCR Routine 03/11/2025 8:50 AM EDT Chronic type B viral hepatitis (CMS/HCC) AMB REFERRAL TO ALLERGY Routine 02/26/2025 Anaphylaxis, [...] Recently Relevant to Health Maintenance Results * (ABNORMAL) Hepatitis B Virus DNA, Quantitative, Real-Time PCR (03/11/2025 8:50 AM EDT) Hepatitis B Viral DNA Qn - cp 2.38(A) NOT DETECTED Log IU/mL [facility] Comment:This test was perfor med using Real-Time Polymerase ChainReaction.Reportable Range: 10 IU/mL to 1,000,000,000 IU/mL.(1.00 Log IU/mL to 9.00 Log IU/mL).THIS TEST WAS PERFORMED AT:[facility] [address] [phone] RIVERA MD Hepatitis B Viral DNA Qn-IU/mL 241(A) NOT DETECTED IU/mL [facility] Blood Venous blood specimen / Unknown 03/11/2025 8:50 AM EDT 03/11/2025 11:12 AM EDT Maryana Winkler MD LAB BLOOD ORDERABLES Final Resul t Performing Organization Address [facility] Co de Phone Number [facility] [address] [place] [phone] * (ABNORMAL) Hepatic Function Panel (03/11/2025 8:50 AM EDT) Bilirubin, Total 0.5 0.0 - 1.0 mg/dL [facility] Bilirubin, Direct 0.2 0.0 - 0.5 mg/dL [facility] Aspartate Amino Transferase 45(H) 5 - 31 U/L [facility] Alanine Aminotransferase 33(H) 0 - 31 U/L [facility] Total Protein 7.5 6.5 - 8.0 g/dL [facility] Albumin Level 4.1 3.5 - 5.0 g/dL [facility] Alkaline Phosphatase 75 39 - 117 U/L [facility] Blood Venous blood specimen / Unknown 03/11/2025 8:50 AM EDT 03/11/2025 11:14 AM EDT Maryana Winkler MD LAB BLOOD ORDERABLES Final Resul t Performing Organization Address [facility] Co de Phone Number [facility] [address] [place] [address], [place] [address] [phone] * Referral to Allergy (02/26/2025) us Yanni GAR OUTPATIENT REFERRAL ORDERABLES F inal Result * XR Chest 2 Views (02/04/2025 5:59 PM EDT) Anatomical Region Laterality Modality Chest Radiographic Jalyn ging 02/04/2025 5:59 PM EDT Narrative 02/04/2025 6:00 PM EDT ? [facility] ?[address] ?[place] [address] ?XRay Report ? Signed ? Patient: Tiffany Vergara ?MR#: [id number] ?? 91 ? : 1965 ?Acct:[id number] ? Age/Sex: 59 / F ?ADM Date: 02/04/25 ? Loc: HO.ED ? Attending Dr: ? Ordering Physician: Neftali Osborn ?? Date of Service: 02/04/25 ?? Procedure(s): XR chest 2V ?? Accession Number(s): [id number] ? cc: Neftali Osborn; Maryana Winkler MD [...] 1800 ? DD/ 1759 ? TD/TT: 02/04/25 1759 ? Dispensing Lead: ? Procedure Note La Murphy - 02/04/[address] [address] XRay Report Signed Patient: Tiffany Vergara MMR#: [id number] 91 : 1965Acct:[id number] Age/Sex: 59 / FADM Date: 02/04/25 Loc: HO.ED Attending Dr: Ordering Physician: Neftali Osborn Date of Service: 02/04/25 Procedure(s): XR chest 2V Accession Number(s): [id number] cc: Neftali Osborn; Maryana Winkler MD CLINICAL [...] OV> 02/04/25 1800 DD/ 58 TD/TT: 02/04/251758 Dispensing Lead: [facility] External Provider IMG XR PROCEDURES Final Result * High Sensitivity Troponin I (02/04/2025 5:36 PM EDT) [facility] TROPONIN I HIGH SENSITIVITY <2.7 <3.5 - 17.0 ng/L [facility] Comment:The Santos high sens itivity Troponin-I results should beused in conjunction with other diagnostic information suchas ECG, clinical observations and information, and patientsymptoms to aid in the diagnosis of [place]. 02/04/2025 5:36 PM EDT 02/04/2025 5:41 PM EDT Generic External Data Provider LAB BLOOD ORDERAB LES Final Result [facility] [address] [place] [phone] * SARS-CoV-2 RNA, Influenza A/B, and RSV RNA, Ql NAAT (02/04/2025 5:36 PM EDT) [facility] Influenza A PCR NEGATIVE Negative [facility] Influenza B PCR NEGATIVE Negative [facility] Resp Syncy Virus RNA Qual PCR NEGATIVE Negative [facility] SARS COV2 PCR NEGATIVE Negative [facility] Comment:All test results mus t be [...] use by authorized laboratories.Testing performed on the Pure[employer] GeneXpert utilizingreal-time RT-PCR.All SARS CoV2 and positive influenza A/B results arereported to [facility]. 02/04/2025 5:36 PM EDT 02/04/2025 5:41 PM EDT us Generic External Data Provider LAB MICROBIOLOGY - GENERAL ORDERABLES Final Result [facility] [address] [place] [phone] * CBC auto differential (02/04/2025 5:36 PM EDT) Only the most recent of3 resultswithin the time period is included. White Blood Count 6.2 4.8 - 10.8 X10*3/uL [facility] Red Blood Count 4.69 4.20 - 5.50 X10*6/uL [facility] Hemoglobin 14.3 12.0 - 16.0 g/dl [facility] Hematocrit 41.7 37.0 - 47.0 % [facility] Mean Corpuscular Volume 88.9 80.0 - 98.0 fL [facility] Mean Corpuscular Hemoglobin 30.5 27.0 - 33.0 pg [facility] Mean Corpuscular HGB Conc 34.3 31.0 - 35.0 g/dl [facility] Red Cell Distribution Width 13.1 11.0 - 16.0 % [facility] Platelet Count 222 160 - 400 X10*3/uL [facility] Mean Platelet Volume 10.1 9.4 - 12.3 fL [facility] Neutrophils Percent Auto 51.0 45 - 73 % [facility] Imm Gran Pct Auto 0.2 0.0 - 0.4 % [facility] Lymphocytes Percent Auto 37.3 20 - 40 % [facility] Monocytes Percent Auto 7.1 2 - 11 % [facility] Eosinophils Percent Auto 3.4 0 - 4 % [facility] Basophils Percent Auto 1.0 0 - 2 % [facility] NRBC Pct Auto 0.0 0.0 - 0.2 /100WBC [facility] Neutrophils Absolute Auto 3.2 2.0 - 8.3 x10*3/uL [facility] Imm Gran Abs Auto 0.01 0.00 - 0.03 X10*3/uL [facility] Lymphocytes Absolute Auto 2.3 1.2 - 4.9 X10*3/uL [facility] Monocytes Absolute Auto 0.4 0.1 - 1.2 X10*3/uL [facility] Eosinophils Absolute Auto 0.2 0.0 - 0.4 X10*3/uL [facility] Basophils Absolute Auto 0.1 0.0 - 0.2 X10*3/uL [facility] NRBC Abs Auto 0.000 0.0 - 0.012 X10*3/uL [facility] 02/04/2025 5:36 PM EDT 02/04/2025 5:41 PM EDT us Generic External Data Provider LAB BLOOD ORDERAB LES Final Result [facility] [address] [place] [address] [phone] * B Type Natriuretic Peptide (BNP) (02/04/2025 5:36 PM EDT) Only the most recent of2 resultswithin the time period is included. B Type Natriuretic Peptide 14 <100 pg/mL [facility] 02/04/2025 5:36 PM EDT 02/04/2025 5:41 PM EDT us Generic External Data Provider LAB BLOOD ORDERAB LES Final Result [facility] [address] [place] [phone] * (ABNORMAL) Comprehensive Metabolic Panel (02/04/2025 5:36 PM EDT) Sodium 139 135 - 145 mmol/L [facility] Potassium 4.1 3.3 - 5.1 mmol/L [facility] Chloride 104 96 - 108 mmol/L [facility] Carbon Dioxide 26 22 - 29 mmol/L [facility] Anion Gap 13 12 - 20 [facility] Urea Nitrogen (BUN) 15 9 - 16 mg/dL [facility] Creatinine, Serum 0.74 0.5 - 1.4 mg/dL [facility] Creatinine Clr Calc Pharmacy 63.9 [facility] Comment:Provided height and weight: 157.48 cm,53.07 kg.eGFR (calculated from the MDRD study equation) and eCrCl(calculated from the Cockcroft-Gault equation) are based ondifferent parameters and may not yield comparable results.If eCrCl result is absurd, please check patient'sheight/weight. Estimated Glomerular Filt Rate >60 [facility] Comment:Chronic Kidney Disea se: Estimated GFR < 60 mL/min/1.40e2Wmomcw Kidney Disease: Estimated GFR < 15 mL/min/1.73m2 Glucose 106 60 - 115 mg/dL [facility] Calcium 9.6 8.4 - 10.2 mg/dL [facility] Bilirubin, Total 0.3 0.0 - 1.0 mg/dL [facility] Aspartate Amino Transferase 33(H) 5 - 31 U/L [facility] Alanine Aminotransferase 32(H) 0 - 31 U/L [facility] Total Protein 8.1(H) 6.5 - 8.0 g/dL [facility] Albumin Level 4.3 3.5 - 5.0 g/dL [facility] Alkaline Phosphatase 87 39 - 117 U/L [facility] 02/04/2025 5:36 PM EDT 02/04/2025 5:41 PM EDT Generic External Data Provider LAB BLOOD ORDERAB LES Final Result Performing Organization Address [facility] de Phone Number [facility] [address] [place] [phone] * Hemoglobin A1c (01/29/2025 8:31 AM EDT) Hemoglobin A1c 5.4 <6.0 % [facility] Comment:Hemoglobin A1C Refer ence Range Adults: 4.8 - 6.0 % Non diabetic: < 6.0 % Goal: < 7.0 %Additional Action Suggested: > 8.0 %Note: Hemoglobin A1c results are invalid for patients with abnormal amounts of HbF. Blood transfusions may impact the HbA1c concentration in the patient sample. Estimated Average Glucose 108 mg/dL [facility] Comment:eAG = Estimated ave rage glucose which is %A1C expressed asaverage glucose, using the formula of the F1Z-CafutdnMusvcjy Glucose study (ADAG), Diabetes Care, Vol.31,#8,Jun. 2007 Blood Venous blood specimen / Unknown 01/29/2025 8:31 AM EDT 01/29/2025 11:21 AM EDT us Yanni [facility] LAB BLOOD ORDERABLES Final Resul t Performing Organization Address [facility] Co de Phone Number [facility] [address] [place] [address] [phone] * MR Brain w/o Contrast (01/14/2025 6:32 PM EST) Anatomical Region Laterality Modality Brain Magnetic Resonan ce 01/14/2025 6:32 PM EST Narrative 01/14/2025 6:34 PM EST ? [facility] [facility] ?[address] ?[place] [address] ? Magnetic Resonance Report ? Signed ? Patient: Neifa,Tiffany M ?MR#: [id number] ?? 91 ? : 1965 ?Acct:[id number] ? Age/Sex: 59 / F ?ADM Date: 01/10/25 ? Loc: HO.[facility] ?459-1 ? Attending Dr: Rossi TORRES ? Ordering Physician: Rossi Rao ?? Date of Service: 01/14/25 ?? Procedure(s): MR head/brain wo con ?? Accession Number(s): [id number] ? cc: Rossi Rao; Maryana Winkler MD ? CLINICAL HISTORY: ?tia word finding difficulty aphasia ? MR of the brain without contrast ? Comparison: CT/SR - CT ANGIO HEAD NECK STROKE - 01/14/25 15:40 EST ?? CT/MS/SR - CT HEAD FOR STROKE - 01/14/25 15:35 EST ?? CT/SR - CT HEAD FOR STROKE [address] - 03/08/17 18:47 EDT ? Findings: ?? [...] 1833 ? DD/ 183 ? TD/TT: 01/14/25 1832 ? Dispensing Lead: ? Procedure Note La Murphy - 01/14/2025 [facility] [address] [place] [address] Magnetic Resonance Report Signed Patient: Tiffany Vergara [facility]#: [id number] 91 : 1965Acct:[id number] Age/Sex: 59 / FADM Date: 01/10/25 Loc: .[facility] 459-[address]: Rossi TORRES Ordering Physician: Rossi Rao Date of Service: 01/14/25 Procedure(s): MR head/brain wo con Accession Number(s): [id number] cc: Rossi Rao; Maryana Winkler MD CLINICAL HISTORY: ?tia word finding difficulty aphasia MR of the brain without contrast Comparison: CT/SR - CT ANGIO HEAD NECK STROKE - 01/14/25 15:[address]/MS/SR - CT HEAD FOR STROKE - 01/14/25 15:[address]/SR - CT HEAD FOR STROKE [id number] - 03/08/17 18:47 EDT Findings: No acute [...] Emely Bhakta MD in OV> 01/14/251832 DD/ 183 TD/TT: 01/14/25 183 Dispensing Lead: [facility] External Provider IM MRI PROCEDURES Edited Result - Final * CT Head Stroke w/o Contrast (01/14/2025 3:42 PM EST) Anatomical Region Laterality Modality Computed Tomogra phy 01/14/2025 3:42 PM EST Narrative 01/14/2025 3:59 PM EST ? [facility] [facility] ?[address] ?[place] [address] ? CT Scan Report ? Signed ? Patient: Neifa,Tiffany M ?MR#: [id number] ?? 91 ? : 1965 ?Acct:[id number] ? Age/Sex: 59 / F ?ADM Date: 01/10/25 ? Loc: HO.IMC ?459-1 ? Attending Dr: Rossi TORRES ? Ordering Physician: Rossi Rao ?? Date of Service: 01/14/25 ?? Procedure(s): CT head for STROKE ?? Accession Number(s): [id number] ? cc: Rossi Rao; Maryana Winkler MD ? Report Number: ?? [id number]: Total DLP = ??557.00 mGy-cm ?? EXAMINATION: [...] This critical result was discussed with physician psychological assistant Rossi ?? Ranjit gramajo at 3:54 [...] DD/ 1542 ? TD/TT: 01/14/25 1542 ? Dispensing Lead: ? Procedure Note Donkaelynter, Image - 01/14/[address] [place] [address] [address] Scan Report Signed Patient: Tiffany Vergara MMR#: [id number] 91 : 1965Acct:[id number] Age/Sex: 59 / FADM Date: 01/10/25 Loc: [facility] 459-[address]: Rossi TORRES Ordering Physician: Rossi Rao Date of Service: 01/14/25 Procedure(s): CT head for STROKE Accession Number(s): [id number] cc: Rossi Rao; Maryana Winkler MD Report Number: [id number]: Total DLP = 557.00 mGy-cm EXAMINATION: CT [...] This critical result was discussed with physician psychological assistant Rossi gramajo at 3:54 PM hours on January 14, 2025.. It was ascertained that the content and urgency of the report was understood at the time of direct communication. Electronically signed by: Paul Whitney MD 01/14/2025 03:56 PM EST RP Dictated By: Paul Godwin MD Signed By: <Electronically signed by Paul Almazan MDin OV> 01/14/25 1556 DD/ 1542 TD/TT: 01/14/25 1542 Dispensing Lead: [facility] External Provider IMG CT PROCEDURES Edited Result - Final * CTA Head Stroke w/ and w/o Contrast (01/14/2025 3:40 PM EST) Anatomical Region Laterality Modality Computed Tomogra phy 01/14/2025 3:40 PM EST Narrative 01/14/2025 4:15 PM EST ? [facility] ?[address] ?[place] [address] ? CT Scan Report ? Signed ? Patient: Tiffany Vergara ?MR#: [id number] ?? 91 ? : 1965 ?Acct:[id number] ? Age/Sex: 59 / F ?ADM Date: 03//25 ? Loc: [facility] ?459-1 ? Attending Dr: Rossi TORRES ? Ordering Physician: Rossi Rao ?? Date of Service: 01/14/25 ?? Procedure(s): CT angio head neck STROKE ?? Accession Number(s): [id number] ? cc: Rossi Rao; Maryana Winkler MD ? Report Number: ?? [id number]: Total DLP = ??657.00 mGy-cm ?? EXAMINATION: [...] 04:13 PM EST RP ? Dictated By: ?Roman Warren MD ? Signed By: ?<Electronically signed by Roman Warren MD in OV> ?01/14/25 1613 ? DD/ 1540 ? TD/TT: 01/14/25 1558 ? Dispensing Lead: MSM ? Procedure Note La Murphy - 01/14/[address] [place] [address] [address] Scan Report Signed Patient: Tiffany Vergara MMR#: [id number] [birth year] : 1965Acct:[id number] Age/Sex: 59 / FADM Date: 01/10/25 Loc: [facility] 459-[address]: Rossi TORRES Ordering Physician: Rossi Rao Date of Service: 01/14/25 Procedure(s): CT angio head neck STROKE Accession Number(s): [id number] cc: Rossi Rao; Maryana Winkler MD Report Number: [id number]: Total DLP = 657.00 mGy-cm EXAMINATION: CTA [...] by: Roman Warren MD 01/14/2025 04:13 PM [facility] Dictated By: Roman Warren MD Signed By: <Electronically signed by Roman Warren MD in OV> 01/14/25 1613 DD/ 1540 TD/TT: 01/14/25 1558 Dispensing Lead: HARSHA [facility] External Provider IMG CT PROCEDURES Edited Result - Final * C-reactive Protein (01/10/2025 11:09 AM EST) C Reactive Protein 0.11 < or = 0.50 mg/dL [facility] 01/10/2025 11:0 9 AM EST 01/10/2025 11:12 AM EST us Generic External Data Provider LAB BLOOD ORDERAB LES Final Result [facility] [address] [place] [phone] * (ABNORMAL) Basic Metabolic Panel (01/10/2025 11:09 AM EST) Sodium 142 135 - 145 mmol/L [facility] Potassium 3.6 3.3 - 5.1 mmol/L [facility] Chloride 111(H) 96 - 108 mmol/L [facility] Carbon Dioxide 22 22 - 29 mmol/L [facility] Anion Gap 13 12 - 20 [facility] Urea Nitrogen (BUN) 21(H) 9 - 16 mg/dL [facility] Creatinine, Serum 0.71 0.5 - 1.4 mg/dL [facility] Creatinine Clr Calc Pharmacy 62.2 [facility] Comment:Provided height and weight: 149.86 cm,52.2 kg.eGFR (calculated from the MDRD study equation) and eCrCl(calculated from the Cockcroft-Gault equation) are based ondifferent parameters and may not yield comparable results.If eCrCl result is absurd, please check patient'sheight/weight. Estimated Glomerular Filt Rate >60 [facility] Comment:Chronic Kidney Disea se: Estimated GFR < 60 mL/min/1.17v8Uhunjs Kidney Disease: Estimated GFR < 15 mL/min/1.73m2 Glucose 202(H) 60 - 115 mg/dL [facility] Calcium 8.4 8.4 - 10.2 mg/dL [facility] 01/10/2025 11:0 9 AM EST 01/10/2025 11:12 AM EST us Generic External Data Provider LAB BLOOD ORDERAB LES Final Result [facility] [address] [place] [phone] * Hm Mammography (10/27/2024 10:28 AM EST) Anatomical Region Laterality Modality Other Historical Provider HEALTH MAINTENANCE Final Result * THINPREP TIS PAP AND HPV mRNA E6/E7, CT/NG, TRICH (01/16/2022 1:29 PM EST) Chlamydia trachomatis RNA, TMA, Urogenital NOT DETECTED NOT DETECTED [facility] Clinical Information: None given [facility] COMMENT SEE COMMENT [facility] Comment: The analytical performance characteristics of this assay, when used to test SurePath(TM) specimens have been determined by [employer]. The modifications have not been cleared or approved by the FDA. This assay has been validated pursuant to the CLIA regulations and is used for clinical purposes. ?? For additional information, please refer to https://education.[employer]/faq/QBH287 (This link is being provided for information/ [...] has been evaluated with computer assisted technology. [employer] Professional: SEE COMMENT [facility] Comment: RXB, CT(ASCP) CT screening location: [address] ??[id number] HPV nRNA E6/E7 Not Detected Not Detected [facility] Comment: Methodology: Paperhanger Assistant-Mediated Amplification This assay detects E6/E7 viral messenger RNA (mRNA) from 14 high-risk HPV types (16,18,31,33,35,39,45,51,52,56,58,59,66,68). ? The analytical performance characteristics of this assay have been determined by [employer]. The modifications have not been cleared or approved by the FDA. This assay has been validated pursuant to the CLIA regulations and is used for clinical purposes. ?? For additional information, please refer to http://Mandae.[employer]/faq/PFH960f1 (This link if provided for information/ educational [...] of this assay have been determined by [employer]. The modifications have not been cleared or approved by the FDA. This assay has been validated pursuant to the CLIA regulations and is used for clinical purposes. ?? For additional information, please refer to http://Mandae.[employer]/ faq/Trichomonastma (This link is being provided for information/ educational purposes only.) ?? 01/16/2022 1:29 PM EST us Maryana Winkler MD LAB PATHOLOGY ORDERABLES Final R esult [facility] [address] [place] [address], * HEPATITIS C AB W/REFL TO HCV RNA, QN, PCR (10/24/2021 8:20 AM EST) HEPATITIS C ANTIBODY NON-REACT IMTIAZ NON-REACT IMTIAZ [facility] INDEX 0.02 <1.00 [facility] Comment: ?? HCV antibody was non-reactive. There is no laboratory ?? evidence of HCV infection. ?? In most cases, no further action is required. However, if recent HCV exposure is suspected, a test for HCV RNA (test code 32523) is suggested. ?? For additional information please refer to http://Mandae.[employer]/faq/CQW80v6 (This link is being provided for informational/ educational purposes only.) ?? 10/24/2021 8:20 AM EST Maryana Winkler MD HISTORICAL/NON ORDERABLE LABS Fi nal Result [facility] [address] * HIV 1/2 ANTIGEN/ANTIBODY,FOURTH GENERATION W/RFL [...] ? For additional information please refer to http://Mandae.[employer]/faq/WWF446 (This link is being provided for informational/ educational purposes only.) ? The performance of this assay has not been clinically validated in patients less than 2 years old. ?? 10/24/2021 8:20 AM EST Maryana Winkler MD LAB BLOOD ORDERABLES Final Resul t [facility] [address] [place] [id number] * (ABNORMAL) Colonoscopy (2016) Colonoscopy Normal(A) Normal 2016 Estee Smith [facility] MAINTENANCE Edited Result - Final from Last 3 Months or Most Recently Relevant to Health Maintenance Insurance [employer] [facility] < [address] [facility] Advance Directives Documents on File Type Date Recorded Patient Ax Survey Worker Expl anation HealthCare Proxy 03/12/2023 Health Care Proxy Form Care Teams Entertainment Reporter Relationship Specialty Start Date End Date Maryana Winkler MD [address] [place] [address] PCP - General Family Medicine 11/12/18
--- OUTSIDE RECORDS SUMMARY | 2025-03-16 09:09 | XMS_ITS | Encounter Summary ---
Author Organization [employer] Address [address] [facility] [address] [place] [address] Care Team Providers Care Salesperson Used Cars Name Role Phone Maryana Winkler MD Primary Care Provider [phone] Encounter Details Date Type Department Care Team ([facility] st Contact Info) Description 01/19/2025 Telephone [facility] MEDICINE [address] [place] [address] Maryana Winkler MD [address] [place] [address] Social History Tobacco Use Types Packs/Day Years [...] 11:00 AM EDT Office Visit [facility] ADULT DENTAL [address] [place] [address] Carl, [place] [address] [place] [address] 11/30/2025 9:00 AM EST Medication Management [facility] MEDICINE [address] [place] [address] documented as of this encounter Visit Diagnoses Not on filedocumented in this encounter Additional Health Concerns Assessment Noted Time PHQ-9 Depression Total Score: 13 024 11:34 AM EST documented as of this encounter Care Teams Salesperson Used Cars Relationship Specialty Start Date End Date Maryana Winkler MD [address] [place] [address] PCP - General Family Medicine 11/12/18 documented as of this encounter
--- OUTSIDE RECORDS SUMMARY | 2025-03-16 09:09 | XMS_ITS | Encounter Summary ---
Author Organization [employer] Address [address] [facility] 7t [place] [address] Care Team Providers Care Skein Yard Drier Name Role Phone Maryana Winkler MD Primary Care Provider Encounter Details Date Type Department Care Team (Late st Contact Info) Description 11/18/2024 Orders Only [facility] MEDICINE [address] [place] [address] ProviderCristopher MD Social History Tobacco Use Types [...] the past 12 months, has t he [employer], gas, oil or water company threatened to [...] Description 04/09/2025 11:00 AM EDT Office Visit [facility] ADULT DENTAL [address] [place] [address] Carl [place] [address] [place] [address] 11/30/2025 9:00 AM EST Medication Management [facility] MEDICINE [address] [place] [address] documented as of this encounter Procedures Procedure [...] documented as of this encounter Care Teams Skein Yard Drier Relationship Specialty Start Date End Date Maryana Winkler MD [address] [place] [address] PCP - General Family Medicine 11/12/18 documented as of this encounter
--- OUTSIDE RECORDS SUMMARY | 2025-03-16 09:09 | XMS_ITS | Encounter Summary ---
Author Organization [employer] Address [address] [facility] [address]t [place] [address] Care Team Providers Care Patient Registration Clerk Name Role Phone Maryana Winkler MD Primary Care Provider [phone] Reason for Visit * Reason Comments Med Refill Encounter Details Date Type Department Care Team ([facility] st Contact Info) Description 08/02/2024 Refill [facility] MEDICINE [address] [place], [place] [phone] Maryana Winkler MD [address] [place], [place] [phone] Social History Tobacco Use Types Packs/Day Years [...] Description 04/09/2025 11:00 AM EDT Office Visit [facility] ADULT DENTAL [address] [place] [address] [place] [address] [place] [address] 11/30/2025 9:00 AM EST Medication Management [facility] MEDICINE [address] [place] [address] documented as of this encounter Visit Diagnoses Not on filedocumented in this encounter Additional Health Concerns Assessment Noted Time PHQ-9 Depression Total Score: 13 024 11:34 AM EST documented as of this encounter Care Teams Patient Registration Clerk Relationship Specialty Start Date End Date Maryana Winkler MD [address] [place] [address] PCP - General Family Medicine 11/12/18 documented as of this encounter
--- OUTSIDE RECORDS SUMMARY | 2025-03-16 09:09 | XMS_ITS | Encounter Summary ---
Author Organization [employer] Address [address] [place] [address] 7 [place] [address] Care Team Providers Care Parking Supervisor Name Role Phone Maryana Winkler MD Primary Care Provider [phone] Encounter Details Date Type Department Care Team (Latest Contact Info) Description 03/16/2021 Abstract [facility] CONVERSIONS Dental, Provider, DDS Social History [...] 11:00 AM EDT Office Visit [facility] ADULT DENTAL [address] [place] [address] [place] [address] [place] [address] 11/30/2025 9:00 AM EST Medication Management [facility] MEDICINE [address] [place] [address] documented as of this encounter Visit Diagnoses Not on filedocumented in this encounter Care Teams Parking Supervisor Relationship Specialty Start Date End Date Maryana Winkler MD [address] [place] [address] PCP - General Family Medicine 11/12/18 documented as of this encounter
--- OUTSIDE RECORDS SUMMARY | 2025-03-16 09:09 | XMS_ITS | Encounter Summary ---
Author Organization [employer] Address [address] [place] [address] [address] [place] [address] Care Team Providers Care Lead Caster Name Role Phone Maryana Winkler MD Primary Care Provider [phone] Encounter Details Date Type Department Care Team (Latest Contact Info) Description 03/23/2022 Abstract [facility] CONVERSIONS Dental, Provider, DDS Social History [...] 04/09/2025 11:00 AM EDT Office Visit [facility] ADULT DENTAL [address] [place] [address] [place] [address] [place] [address] 11/30/2025 9:00 AM EST Medication Management [facility] MEDICINE [address] [place] [address] documented as of this encounter Visit Diagnoses Not on filedocumented in this encounter Care Teams Lead Caster Relationship Specialty Start Date End Date Maryana Winkler MD [address] [place] [address] PCP - General Family Medicine 11/12/18 documented as of this encounter
[2025-03-17 22:59] LABS: Immunoglobulin E 1362 kU/L (<OR=114)
[2025-03-21 08:28] LABS: VITAMIN D (1,25 OH) D3 49 pg/mL; Vit D (1,25-Dihydroxy) Total 49 pg/mL (18-72); Vitamin D (1,25 OH) D2 <8 pg/mL
== END 2025-03-16 08:44 | disposition home or self-care (01) ==
LOC: HO.HHCL 08:43
PROVIDERS: Visit Provider Physician Assistant
DX: Z91.09 Other allergy status, other than to drugs and biological substances (principal)
CPT/HCPCS: 36415; 82652; 82785; 83520; 86003

== ENCOUNTER 2025-05-13 14:39 | Outpatient (AMB) | payer OTHER, SELFPAY ==
[2025-05-13 14:55] VITALS: BP 118/60; PULSE 78; BMI 21.0
--- NOTE | 2025-05-13 14:55 | MHC.OFFVIS ---
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 Senior Recruitment Consultant Required: Yes Senior Recruitment Consultant Name: BELKIS [id number] Allergies No Known Drug Allergies Allergy (Unknown, Verified 02/18/25 14:05) none Juan seeds Allergy (Uncoded 02/04/25 17:14) Anaphylaxis poppy seeds Allergy (Uncoded 02/04/25 17:14) Itching Medication List - Last Reconciled 05/13/25 by Ramirez Valdez MD albuterol sulfate 90 mcg/actuation 2 puffs inhalation Q6H PRN arm brace (Wrist Support One Size) As directed atorvastatin 40 mg PO DAILY bisacodyl 10 mg (2 x 5 mg) PO BEDTIME bupropion HCl XL 300 mg PO QAM buspirone 30 mg PO BEDTIME cholecalciferol (vitamin D3) (Vitamin D3) 50 mcg PO QAM [cock up splint wear on each wrist at night.] dexlansoprazole (Dexilant) 60 mg PO BEDTIME diclofenac sodium 1% 2 grams topical BID PRN dicyclomine 10 mg PO TID PRN docusate sodium 200 mg (2 x 100 mg) PO BEDTIME PRN duloxetine 60 mg PO BID fluticasone propionate 50 mcg/actuation 1 spray intranasal QAM PRN gabapentin mg PO hydroxyzine HCl 50 mg PO BEDTIME lidocaine 4% 1 patch topical DAILY PRN linaclotide (Linzess) 290 mcg PO QAM loratadine 10 mg PO DAILY magnesium oxide 400 mg PO QAM melatonin 3 mg PO BEDTIME PRN metoclopramide HCl 10 mg PO QID midodrine 10 mg PO TID 90 days mometasone 200 mcg/actuation (Asmanex HFA) 1 puff inhalation BID montelukast (Singulair) 10 mg PO DAILY neomycin-polymyxin B-dexameth 3.5mg/mL-10,000 unit/mL-0.1 % 1 drp ophthalmic (eye) QID prazosin 1 - 2 mg PO BEDTIME simethicone 180 mg PO QID sumatriptan succinate take 1 tab at onset of headache; if no relief, may repeat 1 tab after at least 2 hrs; max = 2 tabs/24 hrs PO topiramate 50 mg PO BID HPI Comments Details: Tiffany is here for cardiac consultation regarding shortness of breath and low blood pressure. Per documentation, she presented to the ER recently with hives. Thought to have had a severe allergic reaction to smoothie with chest leads. In that context, she was hypotensive, tachycardic, tachypneic. She was treated with steroids, Benadryl, Pepcid, epinephrine including epinephrine drip. Overall, impression was anaphylactic shock. She was in the ICU and then midodrine was added for low blood pressure. Eventually discharged home. She states that she just feels short of breath with any form of activity. Not clear if it is just deconditioning after severe illness. Prior to this, no known cardiac issues including coronary disease or myocardial infarction or cardiomyopathy. No clear anginal-type chest pains. She still takes the midodrine. [facility] Medical History GERD (gastroesophageal reflux disease) Diverticulitis Bilateral carpal tunnel syndrome Polyarthralgia Fracture of proximal phalanx of right thumb Carpal tunnel syndrome of left wrist Distal radius fracture, left Asthma Hepatitis B Fibromyalgia Surgical History H/O breast surgery H/O reduction mammoplasty Hx of abdominoplasty (~2004) History of open reduction and internal fixation (ORIF) procedure (~02/2018) Hx of section (~1979) Hx of colonoscopy Family History Father Lung cancer Diabetes Hepatitis Brother Diabetes Lung cancer Sister Gastritis Social History Household Members: Family Housing: House Do you presently have visiting nurse or other home services: No Alcohol intake: never Patient Tobacco Use Status: Never used Tobacco e-Cigarette/Vaping Use: Never Used Advance Directives Date on File: 01/10/25 service: No Review of Systems Const Denies weakness ENT Denies dizziness Card Denies chest pain, Denies chest pain with activity, Denies syncope, Denies rapid heart rate, Denies pedal edema, Denies edema, Denies leg edema, Denies lightheadedness, Reports palpitations, Denies dyspnea, Denies dyspnea on exertion and Denies orthopnea Resp Denies cough, Denies dyspnea and Denies dyspnea on exertion GI Denies hematochezia and Denies change in stool character Musc Denies abnormal gait, Denies muscle cramps, Denies muscle weakness, Denies numbness, Denies radiating pain into limb and Denies tingling Neuro Denies abnormal gait, Denies dizziness, Denies syncope, Denies numbness, Denies tingling and Denies weakness Endo Reports palpitations Physical Exam Vital Signs: Last Vital Signs Pulse 78 05/13/25 14:55 BP 118/60 05/13/25 14:55 BMI result Body Mass Index 21.0 Const General: comfortable and no acute distress Orientation/consciousness: patient oriented x3 HEENT Other: Unremarkable Head: Yes normal to inspection Neck Neck: Yes normal visual inspection Chest Chest palpation & inspection: normal inspection of the chest Resp Auscultation: clear to auscultation bilaterally Cardio Palpation: normal PMI Heart sounds: S1 normal heart sound present, S2 normal heart sound present, no gallops, no murmurs and no rubs GI Palpation (GI): Soft to palpation Back/Spine/Pelvis Other: unremarkable Skin General skin exam: no rashes or lesions noted Neuro General: patient oriented x3 Extrem General: Yes normal to inspection Psych Mental Status: mental status grossly normal Assessment & Plan Assessment & Plan (1) Shortness of breath: Code(s): R06.02 - Shortness of breath Category: Medical Plan: Cardiac BNP is well within normal limits at 14. Low suspicion of cardiac etiology. Check echocardiogram. (2) Arterial hypotension: Code(s): I95.9 - Hypotension, unspecified Category: Medical Plan: Even at baseline, it seems she runs lowish blood pressures. She can try to not take the midodrine and do home readings. If it is < 90 mm systolic, to contact us. Patient understands. Plan Discussion Notes I discussed with the patient the plan to perform an echocardiogram to ensure her heart is not contributing to her breathing difficulties. We talked about her blood pressure management, emphasizing the importance of monitoring it and the optional use of midodrine. Patient was informed and verbally consented to the use of an ambient scribe for clinic note documentation during this visit. Orders: Orders CA echo transthoracic complete Today R06.02 - Shortness of breath Patient Instructions: - Monitor your blood pressure regularly and contact us if it drops below 90 mmHg. - You may stop taking midodrine if you feel it is not helping. - Follow up for an echocardiogram as scheduled. Coding Level of Care Code New Pt Level 3 (11375) Diagnoses Shortness of breath R06.02 Arterial hypotension I95.9
== END 2025-05-13 15:21 | disposition home or self-care (01) ==
LOC: HO.HCS 14:40
PROVIDERS: PCP Family Medicine; Visit Provider Internal Medicine
DX: R06.02 Shortness of breath (principal); I95.9 Hypotension, unspecified
CPT/HCPCS: 99213

== ENCOUNTER → 2025-05-13 14:39 | Outpatient (BNVA) | payer OTHER, SELFPAY | PROVIDERS: PCP Family Medicine; Visit Provider Internal Medicine | DX: R06.02 Shortness of breath (principal); I95.9 Hypotension, unspecified | CPT/HCPCS: 99212 ==

== ENCOUNTER 2025-05-19 08:14 | Outpatient (REF) | payer OTHER, SELFPAY ==
--- NOTE | ~2025-05-19 | XR_ITS ---
EXAMINATION: XR CHEST CLINICAL INFORMATION: SOB COMPARISON: 02/04/2025. TECHNIQUE: 2 views of the chest were obtained. FINDINGS: The cardiac, hilar, and mediastinal contours are normal. The lungs are clear bilaterally. There is no pneumothorax or pleural effusion. There is no focal osseous or soft tissue abnormality. 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 XR/XR chest 2V IMPRESSION: No active pulmonary disease. No interval change. Electronically signed by: Peyman Panda MD 05/19/2025 08:45 AM EDT
== END 2025-05-19 08:15 | disposition home or self-care (01) ==
LOC: HO.XRAY 08:14
PROVIDERS: PCP Family Medicine; Visit Provider Physician Assistant
DX: R06.02 Shortness of breath (principal)
CPT/HCPCS: 71046

== ENCOUNTER → 2025-05-19 08:22 | Outpatient (BNV) | payer OTHER, SELFPAY | PROVIDERS: PCP Family Medicine; Visit Provider Radiology Diagnostic Radiology | DX: R06.02 Shortness of breath (principal) | CPT/HCPCS: 71046 ==

== ENCOUNTER → 2025-06-22 13:41 | Outpatient (REF) | payer OTHER, SELFPAY ==
--- NOTE | 2025-06-22 13:46 | CA_ITS ---
Transthoracic Echocardiogram Patient (Last, First, Middle): Tiffany Vergara M Gender: Female Date of : 1965 Age: 60 Procedure Date: 06/22/2025 Procedure Type: Transthoracic Echocardiogram Location: OP Height: 149.86 cm Weight: 52.16 kg BSA: 1.46 m2 Heart Rate: bpm BP: 116 / 60 mmHg Planning Director: Referring MD: Ramirez Valdez MD Symptoms: R06.02 - Shortness of breath Study Quality: Good ECG Rhythm: Sinus bradycardia Conclusions: - The left ventricular systolic function is normal. The calculated ejection fraction is 63% by biplane method. - No obvious valvular pathology seen on this study. Findings Left Ventricle Normal left ventricular cavity size. The left ventricular systolic function is normal. The calculated ejection fraction is 63% by biplane method. There is no evidence of regional wall motion abnormalities. Diastolic function is normal for age. There is mild septal asymmetric hypertrophy. Right Ventricle Normal right ventricular cavity size and systolic function. Atria The left atrium is moderately dilated. The right atrium is normal in size. Aortic Valve There is a normal trileaflet aortic valve. There is no aortic valve stenosis. There is no aortic valve regurgitation. Mitral Valve The mitral valve appears normal. There is trace mitral valve regurgitation. There is no mitral valve stenosis. Pulmonic Valve The pulmonic valve is likely normal. Tricuspid Valve There is mild tricuspid valve regurgitation. There is no evidence of pulmonary hypertension. Great Vessels The asc aorta is normal in size. Venous The inferior vena cava is normal in size and collapses greater than 50% with inspiration. Pericardium/Pleural There is no evidence of pericardial effusion. Prior Study Comparison No significant change compared to prior study dated: 03/09/2017. Recommendations, Care & Conclusions No obvious valvular pathology seen on this study. Measurements 2D Linear Measurements IVSd: 1.11 0.6-0.9/0.6-1.0 cm LVIDd: 4.52 3.9-5.3/4.2-5.9 cm LVIDd Index: 3.10 2.4-3.2/2.2-3.1 cm/m2 LVIDs: 2.68 2.0-3.6 cm LVPWd: 0.97 0.7-1.1 cm Ao Root: 2.50 2.1-3.5 cm LA Diam: 3.80 2.7-3.8/3.0-4.0 cm LAIDs Index: 2.60 1.5-2.3 cm/m2 LV Mass: 202.28 67-162/88-224 g LV Mass Index: 138.55 43-95/49-115 g/m2 LVOT Diam: 1.90 3.0+(-)1.3 cm 2D Systolic Function EF 4C: 63.90 >55% EF 2C: 61.60 >55% EF BiP: 62.60 >55% Mitral Valve MV Pk E: 0.93 MV PK A: 0.69 MV Decel Time: 195.00 E/A: 1.30 E'Lateral: 13.10 E'Medial: 7.72 E/E' Med: 12.10 E/E' Lat: 7.10 PHT: 57.00 MVA PHT: 3.[address]: 4.80 Aortic Valve AoV Pk Tonio: 1.56 AoV Mn Tonio: 1.00 AoV VTI: 0.40 AoV Pk Grad: 10.00 Aov Mn Grad: 5.00 LILLIANA Cont.VTI: 2.28 LVOT LVOT Pk Tonio: 1.26 LVOT Mn Tonio: 0.87 LVOT VTI: 0.32 LVOT Pk Grad: 6.00 LVOT Mn Grad: 4.00 LVOT Diam: 1.90 LVOT Area: 2.84 Diastolic Function MV Pk E: 0.93 MV Pk A: 0.69 E/A: 1.30 E'Medial: 7.72 E/E' Med: 12.10 E' Laterial: 13.10 E/E' Lat: 7.10 Right Ventricle TAPSE (mm): 31.00 TVS' Tonio: 13.00 Tricuspid Valve TR Pk Tonio: 2.42 TR Pk Grad: 23.00 RA Press: 3.00 RVSP: 26.00 Great Vessels Aorta Ao Root-2D: 2.50 2.0-3.7 cm Ao Asc: 2.60 2.1-3.4 cm Pulmonary Valve PV Pk Tonio: 1.00 Peak PV Grad: 4.00 Updated in Other Vendor System with Status of Final Ramirez Valdez MD electronically signed on 06/23/2025 9:25:43 AM with status of Final
== END ==
LOC: HO.CARD 13:41
PROVIDERS: PCP Family Medicine; Visit Provider Internal Medicine
DX: R06.02 Shortness of breath (principal)
CPT/HCPCS: 93306

== ENCOUNTER → 2025-06-22 13:46 | Outpatient (BNV) | payer OTHER, SELFPAY | PROVIDERS: PCP Family Medicine; Visit Provider Internal Medicine | DX: I42.2 Other hypertrophic cardiomyopathy (principal); I51.7 Cardiomegaly; I36.1 Nonrheumatic tricuspid (valve) insufficiency | CPT/HCPCS: 93306 ==

== ENCOUNTER 2025-07-14 08:28 | Outpatient (REF) | payer OTHER, SELFPAY ==
--- NOTE | ~2025-07-14 | US_ITS ---
EXAMINATION: US COMPLETE ABDOMEN WITH LIVER ELASTOGRAPHY CLINICAL INFORMATION: transaminitis, Hep B COMPARISON: CT on May 26, 2024 TECHNIQUE: Real-time imaging of the abdominal viscera. Noninvasive ultrasound liver fibrosis assessment is performed using Albert Elast[employer] point quantification shear wave elastography (pSWE) with a C5-2 MHz transducer. Multiple elastography samples are obtained. FINDINGS: PANCREAS: The visualized pancreatic head and body are normal in appearance. The remainder of the pancreas is obscured from visualization by the overlying bowel gas. ABDOMINAL AORTA: No aortic aneurysm is seen. INFERIOR VENA CAVA: Visualized portions are normal. LIVER: The liver demonstrates normal size, contour and echogenicity. No focal lesion or intrahepatic biliary duct dilatation. The right lobe measures 15 cm in length. The left lobe measures 10 cm in length. The main portal vein is patent with a normal direction of flow. Demonstrates a continuous venous waveform. Shear wave liver elastography median stiffness is 1.6 m/s (reference: normal median stiffness is 1.3 m/s or less). IQR/median stiffness to assess sampling precision is 0.1 (reference: good quality data set is IQR/median stiffness of 0.15 or less). GALLBLADDER: The gallbladder is physiologically distended without evidence of stones, sludge, polyps, wall thickening or pericholecystic fluid. COMMON BILE DUCT: Normal in caliber measuring 0.5 cm in diameter. RIGHT KIDNEY: There is pelviectasis. No renal calculi or focal parenchymal lesions. The kidney measures 9.6 cm in maximum dimension. LEFT KIDNEY: There is pelviectasis. No renal calculi or focal parenchymal lesions. The kidney measures 10.2 cm in maximum dimension. SPLEEN: Unremarkable. The spleen measures 7.6 cm in maximum dimension. FREE FLUID: None seen. US/US abdomen comp w elastography IMPRESSION: Unremarkable. Liver. Liver elastography: In the absence of other known clinical signs, measurements rule out compensated advanced chronic liver disease. If there are known clinical signs, further testing may be needed for confirmation. Bilateral pelviectasis, a stable and nonspecific finding. REFERENCE: Society of Radiologists in Ultrasound Liver Stiffness Thresholds (2020): LIVER STIFFNESS THRESHOLDS: *Liver Stiffness equal or less than 1.3 m/s: High probability of being normal. *Liver Stiffness less than 1.7 m/s: In the absence of other known clinical signs, rules out compensated advanced chronic liver disease. *Liver Stiffness 1.7-2.1 m/s: Suggestive of compensated advanced chronic liver disease but need further test for confirmation. *Liver Stiffness over 2.1 m/s: Rules in compensated advanced chronic liver disease. *Liver Stiffness over 2.4 m/s: Suggestive of clinically significant portal hypertension. QUALITY OF DATA SET: *IQR/Median value equal or less than 0.15 implies a quality data set. *IQR/Median value over 0.15 implies a poor quality data set. SIGNIFICANT CHANGE FROM PRIOR EXAM: Significant change if liver stiffness measurement is 10% or greater from prior exam. OTHER CONSIDERATIONS: The stage of liver fibrosis may be overestimated in the setting of acute hepatitis, liver inflammation, elevated liver function tests, hepatic vascular congestion, obstructive cholestasis, non-fasting state, and infiltrative diseases such as amyloidosis and lymphoma. In some patients with NAFLD, the liver stiffness thresholds for compensated advanced chronic liver disease may be lower. In causes other than viral hepatitis and NAFLD, liver stiffness thresholds are not well established. Electronically signed by: Dipesh Chisholm MD 07/14/2025 11:34 AM EDT
--- OUTSIDE RECORDS SUMMARY | 2025-07-14 09:05 | XMS_ITS | Encounter Summary ---
Author Organization [employer] Address [address] [facility] 7 [place] [address] Care Team Providers Care Creative Writing Teacher Name Role Phone Maryana Winkler MD Primary Care Provider Reason for Visit * Reason Onset Date Comments Appointment Request 01/19/2025 Encounter Details Date Type Department Care Team ([facility] st Contact Info) Description 01/19/2025 Telephone [facility] MEDICINE [address] [place] [address] Maryana Winkler MD [address] [place] [address] Appointment Request Social History Tobacco Use Types [...] appt with PCP. Reports was admitted at [facility] 01/10-01/15 for anaphylactic shock after consuming [...] Care Team (Late st Contact Info) Description 08/12/2025 10:15 AM EDT Office Visit [facility] MEDICINE [address] [place] [address] Maryana Winkler MD [address] [place] [address] 10/21/2025 8:00 AM EST Office Visit [facility] ADULT DENTAL [address] [place] [address] En[place] Henry [address] [place] [address] documented as of this encounter Visit Diagnoses Not on filedocumented in this encounter Additional Health Concerns Assessment Noted Time PHQ-9 Depression Total Score: 13 024 11:34 AM EST documented as of this encounter Care Teams Creative Writing Teacher Relationship Specialty Start Date End Date Maryana Winkler MD [address] [place] [address] PCP - General Family Medicine 11/12/18 documented as of this encounter
--- OUTSIDE RECORDS SUMMARY | 2025-07-14 09:05 | XMS_ITS | Encounter Summary ---
Author Organization [employer] Address [address] [facility] 7t [place] [address] Care Team Providers Care Research Chemical Engineer Name Role Phone Maryana Winkler MD Primary Care Provider [phone] Encounter Details Date Type Department Care Team (Late st Contact Info) Description 01/11/2025 Orders Only [facility] MEDICINE [address] [place], [place] [phone] Maryana Winkler MD [address] [place], [place] [phone] Acute right ankle pain Social History Tobacco [...] Description 08/12/2025 10:15 AM EDT Office Visit [facility] MEDICINE [address] [place] [address] Maryana Winkler MD [address] [place] [address] 10/21/2025 8:00 AM EST Office Visit [facility] ADULT DENTAL [address] [place] [address] Carl, [place] [address] [place] [address] documented as of this encounter Visit Diagnoses Diagnosis Acute right ankle pain documented in this encounter Additional Health Concerns Assessment Noted Time PHQ-9 Depression Total Score: 13 024 11:34 AM EST documented as of this encounter Care Teams Research Chemical Engineer Relationship Specialty Start Date End Date Maryana Winkler MD [address] [place] [id number] PCP - General Family Medicine 11/12/18 documented as of this encounter
--- OUTSIDE RECORDS SUMMARY | 2025-07-14 09:06 | XMS_ITS | Encounter Summary ---
Author Organization [employer] Address [address] [place] [address] 7t [place] [address] Care Team Providers Care Metal Filer Name Role Phone Maryana Winkler MD Primary Care Provider [phone] Reason for Visit * Reason Comments Med Refill Encounter Details Date Type Department Care Team (Late st Contact Info) Description 07/23/2023 Refill [facility] PEDS [address] [place], [place] [phone] Maryana Winkler MD [address] [place] [address] Allergic rhinitis, unspecified seasonality, unspecified trigger Social [...] Description 08/12/2025 10:15 AM EDT Office Visit [facility] MEDICINE [address] [place] [address] Maryana Winkler MD [address] [place], [place] [phone] 10/21/2025 8:00 AM EST Office Visit [facility] ADULT DENTAL [address] [place], [place] [phone] En[place] Henry [address] [place] [address] documented as of this encounter Visit Diagnoses Diagnosis Allergic rhinitis, unspecified seasonality, unspecified trigger documented in this encounter Additional Health Concerns Assessment Noted Time PHQ-9 Depression Total Score: 4 12/14/19 23 9:31 AM EST documented as of this encounter Care Teams Metal Filer Relationship Specialty Start Date End Date Maryana Winkler MD [address] [place] [address] PCP - General Family Medicine 11/12/18 documented as of this encounter
--- OUTSIDE RECORDS SUMMARY | 2025-07-14 09:06 | XMS_ITS | Encounter Summary ---
Author Organization [employer] Address [address] [place] [address] 7 [place] [address] Care Team Providers Care Sales Floor Manager Name Role Phone Maryana Winkler MD Primary Care Provider [phone] Encounter Details Date Type Department Care Team (Late st Contact Info) Description 07/17/2023 Abstract [facility] MEDICINE [address] [place] [phone] Maryana Winkler MD [address] [place] [phone] Social History Tobacco Use Types Packs/Day Years [...] Description 08/12/2025 10:15 AM EDT Office Visit [facility] MEDICINE [address] [place] [address] Maryana Winkler MD [address] [place] [phone] 10/21/2025 8:00 AM EST Office Visit [facility] ADULT DENTAL [address] [place] [address] En[place] Henry [address] [place] [address] documented as of this encounter Visit Diagnoses Not on filedocumented in this encounter Additional Health Concerns Assessment Noted Time PHQ-9 Depression Total Score: 4 12/14/19 23 9:31 AM EST documented as of this encounter Care Teams Sales Floor Manager Relationship Specialty Start Date End Date Maryana Winkler MD [address] [place] [address] PCP - General Family Medicine 11/12/18 documented as of this encounter
--- OUTSIDE RECORDS SUMMARY | 2025-07-14 09:06 | XMS_ITS | Encounter Summary ---
Author Organization [employer] Address [address] [place] [address] 7t [place] [address] Care Team Providers Care Movie Actor Name Role Phone Maryana Winkler MD Primary Care Provider [phone] Encounter Details Date Type Department Care Team (Latest Contact Info) Description 03/27/2019 Abstract [facility] CONVERSIONS Dental, Provider, DDS Social [...] Description 08/12/2025 10:15 AM EDT Office Visit [facility] MEDICINE [address] [place] [address] Maryana Winkler MD [address] [place] [address] 10/21/2025 8:00 AM EST Office Visit [facility] ADULT DENTAL [address] [place] [address] Carl, [place] [address] [place] [address] documented as of this encounter Visit Diagnoses Not on filedocumented in this encounter Care Teams Movie Actor Relationship Specialty Start Date End Date Maryana Winkler MD [address] [place] [address] PCP - General Family Medicine 11/12/18 documented as of this encounter
--- OUTSIDE RECORDS SUMMARY | 2025-07-14 09:06 | XMS_ITS | Encounter Summary ---
Author Organization [employer] Address [address] [place] [address] 7t [place] [address] Care Team Providers Care Registration Representative Name Role Phone Maryana Winkler MD Primary Care Provider [phone] Encounter Details Date Type Department Care Team (Latest Contact Info) Description 03/16/[address] [facility] CONVERSIONS Dental, Provider, DDS Social History [...] Description 08/12/2025 10:15 AM EDT Office Visit [facility] MEDICINE [address] [place] [address] Maryana Winkler MD [address] [place] [address] 10/21/2025 8:00 AM EST Office Visit [facility] ADULT DENTAL [address] [place] [address] En[place] Henry [address] [place] [address] documented as of this encounter Visit Diagnoses Not on filedocumented in this encounter Care Teams Registration Representative Relationship Specialty Start Date End Date Maryana Winkler MD [address] [place] [address] PCP - General Family Medicine 11/12/18 documented as of this encounter
--- OUTSIDE RECORDS SUMMARY | 2025-07-14 09:06 | XMS_ITS | Encounter Summary ---
Author Organization [employer] Address [address] [facility] 7t [place] [address] Care Team Providers Care Metal Expediter Name Role Phone aMryana Winkler MD Primary Care Provider [phone] Encounter Details Date Type Department Care Team (Late st Contact Info) Description 11/18/2024 Orders Only [facility] MEDICINE [address] [place] [address] ProviderCristopher MD Social History Tobacco Use Types [...] Description 08/12/2025 10:15 AM EDT Office Visit [facility] MEDICINE [address] [place] [address] Maryana Winkler MD [address] [place] [address] 10/21/2025 8:00 AM EST Office Visit [facility] ADULT DENTAL [address] [place] [address] En[place] Henry [address] [place] [address] documented as of this encounter Procedures Procedure [...] as of this encounter Care Teams Metal Expediter Relationship Specialty Start Date End Date Maryana Winkler MD [address] [place], [place] [phone] PCP - General Family Medicine 11/12/18 documented as of this encounter
--- OUTSIDE RECORDS SUMMARY | 2025-07-14 09:06 | XMS_ITS | Encounter Summary ---
Author Organization [employer] Address [address] [facility] 7t [place] [address] Care Team Providers Care Thoroughbred Horse Farm Manager Name Role Phone Maryana Winkler MD Primary Care Provider [phone] Reason for Visit * Reason Comments Med Refill Encounter Details Date Type Department Care Team ([facility] st Contact Info) Description 08/02/2024 Refill [facility] MEDICINE [address] [place], [place] [phone] Maryana Winkler MD [address] [place] [address] Social History Tobacco Use Types Packs/Day Years [...] Description 08/12/2025 10:15 AM EDT Office Visit [facility] MEDICINE [address] [place] [address] Maryana Winkler MD [address] [place] [address] 10/21/2025 8:00 AM EST Office Visit [facility] ADULT DENTAL [address] [place] [address] Carl, [place] [address] [place] [address] documented as of this encounter Visit Diagnoses Not on filedocumented in this encounter Additional Health Concerns Assessment Noted Time PHQ-9 Depression Total Score: 13 024 11:34 AM EST documented as of this encounter Care Teams Thoroughbred Horse Farm Manager Relationship Specialty Start Date End Date Maryana Winkler MD [address] [place] [address] PCP - General Family Medicine 11/12/18 documented as of this encounter
--- OUTSIDE RECORDS SUMMARY | 2025-07-14 09:06 | XMS_ITS | Encounter Summary ---
Author Organization [employer] Address [address] [place] [address] 7t [place] [address] Care Team Providers Care Geoscience Technician Name Role Phone Maryana Winkler MD Primary Care Provider [phone] Encounter Details Date Type Department Care Team (Latest Contact Info) Description 03/23/2022 Abstract [facility] CONVERSIONS Dental, Provider, DDS Social History Tobacco [...] 08/12/2025 10:15 AM EDT Office Visit [facility] MED[facility]INE [address] [place] [address] Maryana Winkler MD [address] [place] [address] 10/21/2025 8:00 AM EST Office Visit [facility] ADULT DENTAL [address] [place] [address] En[place] Henry [address] [place] [address] documented as of this encounter Visit Diagnoses Not on filedocumented in this encounter Care Teams Geoscience Technician Relationship Specialty Start Date End Date Maryana Winkler MD [address] [place] [address] PCP - General Family Medicine 11/12/18 documented as of this encounter
--- OUTSIDE RECORDS SUMMARY | 2025-07-14 09:06 | XMS_ITS | Encounter Summary ---
Author Organization [employer] Address [address] [facility] 7t [place] [address] Care Team Providers Care Video Production Assistant Name Role Phone Maryana Winkler MD Primary Care Provider [phone] Reason for Visit * Reason Comments Med Refill Encounter Details Date Type Department Care Team ([facility] st Contact Info) Description 08/13/2024 Refill [facility] MEDICINE [address] [place] [address] Maryana Winkler MD [address] [place] [address] Social History Tobacco Use Types Packs/Day Years [...] Description 08/12/2025 10:15 AM EDT Office Visit [facility] MEDICINE [address] [place] [address] Maryana Winkler MD [address] [place] [address] 10/21/2025 8:00 AM EST Office Visit [facility] ADULT DENTAL [address] [place] [address] Carl, [place] [address] [place] [address] documented as of this encounter Visit Diagnoses Not on filedocumented in this encounter Additional Health Concerns Assessment Noted Time PHQ-9 Depression Total Score: 13 024 11:34 AM EST documented as of this encounter Care Teams Video Production Assistant Relationship Specialty Start Date End Date Maryana Winkler MD [address] [place] [address] PCP - General Family Medicine 11/12/18 documented as of this encounter
--- OUTSIDE RECORDS SUMMARY | 2025-07-14 09:06 | XMS_ITS | Encounter Summary ---
Author Organization [employer] Address [address] [place] [address] 7[address] [place] [address] Care Team Providers Care Foreign Clerk Name Role Phone Maryana Winkler MD Primary Care Provider [phone] Encounter Details Date Type Department Care Team (Late st Contact Info) Description 05/23/2023 Orders Only [facility] MEDICINE [address] [place] [phone] ProviderCristopher MD Social History Tobacco Use Types [...] Description 08/12/2025 10:15 AM EDT Office Visit [facility] MEDICINE [address] [place] [phone] Maryana Winkler MD [address] [place] [phone] 10/21/2025 8:00 AM EST Office Visit [facility] ADULT DENTAL [address] [place] [address] Werner Henryaris [address] [place] [address] documented as of this encounter Procedures Procedure [...] EST) Vitamin D, 25-OH, D2 6 ng/mL [facility] Comment:This test was develo ped and its analytical performancecharacteristics have been determined by [facility] [place], [place]. It hasnot been cleared or approved by the U.S. Food and DrugAdministration. This assay has been validated pursuantto the CLIA regulations and is used for clinicalpurposes.THIS TEST WAS PERFORMED AT:[employer] [place] [address]GHOPIRRSAM WELLS MD,PHD Vitamin D, 25-OH, D3 20 ng/mL [facility] Comment:This test was develo ped and its analytical performancecharacteristics have been determined by [facility] [place], [place]. It hasnot been cleared or approved by the U.S. Food and DrugAdministration. This assay has been validated pursuantto the CLIA regulations and is used for clinicalpurposes. Vitamin D, 25-OH, Total 26(A) 30 - 100 ng/mL [facility] Comment:Vitamin D, 25-Hydrox y reports concentrations [...] = 30 ng/mL.For additional information, please refer tohttp://education.[employer]/faq/RWA058(This link is being provided for informational/educational purposes only.) 01/16/2024 8:44 AM EST 01/16/2024 11:23 AM EST us Generic External Data Provider LAB BLOOD ORDERAB LES Final Result Performing Organization Address [facility]/ZIP Co de Phone Number [facility] [address] [place] [phone] * Urine electrolytes (12/20/2023 10:49 PM EST) Chloride Urine Random <20.0 mmol/L [facility] Sodium Urine Random 44.0 mmol/L [facility] Potassium Urine Random 7.7 mmol/L [facility] 12/20/2023 10:4 9 PM EST 12/20/2023 10:53 PM EST us Generic External Data Provider LAB URINE ORDERAB LES Final Result Performing Organization Address City/[facility]/ZIP Co de Phone Number [facility] [address] [place] [address] [place] [phone] * Urinalysis w/reflex microscopic (12/20/2023 10:49 PM EST) Color Urine Yellow [facility] Appearance Urine Clear [facility] PH 8.0 5.0 - 9.0 [facility] Glucose Urine UA Negative Negative mg/dL [facility] Urine Blood Negative Negative [facility] Specific [place] - Urine 1.010 1.005 - 1.025 [facility] Urine Protein Negative Neg-Trace mg/dL [facility] Urine Ketones Negative Negative mg/dL [facility] Nitrite Urine Negative Negative [facility] Leukocyte Esterase Urine Negative Negative [facility] 12/20/2023 10:4 9 PM EST 12/20/2023 10:53 PM EST Narrative [facility] - 12/20/2023 10:56 PM EST [id number], [employer] us Generic External Data Provider LAB URINE ORDERAB LES Final Result [facility] [address] [place] [phone] * Electrolyte Panel (12/20/2023 10:40 PM EST) Pathologist [facility] [place] Sodium 139 135 - 145 mmol/L [facility] Potassium 3.4 3.3 - 5.1 mmol/L [facility] Chloride 103 96 - 108 mmol/L [facility] Carbon Dioxide 27 22 - 29 mmol/L [facility] Anion Gap 12 12 - 20 [facility] 12/20/2023 10:4 0 PM EST 12/20/2023 10:43 PM EST us Generic External Data Provider LAB BLOOD ORDERAB LES Final Result [facility] [address] [place] [phone] * Magnesium (12/20/2023 4:46 PM EST) Magnesium 2.1 1.6 - 2.6 mg/dL [facility] 12/20/2023 4:46 PM EST 12/20/2023 4:49 PM EST us Generic External Data Provider LAB BLOOD ORDERAB LES Final Result [facility] [address] [place] [address] [phone] * (ABNORMAL) Comprehensive Metabolic Panel (12/20/2023 4:46 PM EST) Sodium 136 135 - 145 mmol/L [facility] Potassium 2.6(LL) 3.3 - 5.1 mmol/L [facility] Comment:Critical value for t est(s): POTS Results called to and readback by: JAYLAN Person calling: SALIERD Date: 12/20/23 Time:1707 Chloride 98 96 - 108 mmol/L [facility] Carbon Dioxide 28 22 - 29 mmol/L [facility] Anion Gap 13 12 - 20 [facility] Urea Nitrogen (BUN) 10 9 - 16 mg/dL [facility] Creatinine, Serum 0.84 0.5 - 1.4 mg/dL [facility] Creatinine Clr Calc Pharmacy 49.1 [facility] Comment:Provided height and weight: 149.86 cm,49.5 kg.eGFR (calculated from the MDRD study equation) and eCrCl(calculated from the Cockcroft-Gault equation) are based ondifferent parameters and may not yield comparable results.If eCrCl result is absurd, please check patient'sheight/weight. Estimated Glomerular Filt Rate >60 [facility] Comment:NOTE: For -Am erican individuals, multiply the result by 1.210.Chronic Kidney Disease: Estimated GFR < 60 mL/min/1.49l5Lyetjf Kidney Disease: Estimated GFR < 15 mL/min/1.73m2 Glucose 155(H) 60 - 115 mg/dL [facility] Calcium 9.2 8.4 - 10.2 mg/dL [facility] Bilirubin, Total 0.4 0.0 - 1.0 mg/dL [facility] Aspartate Amino Transferase 24 5 - 31 U/L [facility] Alanine Aminotransferase 14 0 - 31 U/L [facility] Total Protein 7.3 6.5 - 8.0 g/dL [facility] Albumin Level 4.1 3.5 - 5.0 g/dL [facility] Alkaline Phosphatase 72 39 - 117 U/L [facility] 12/20/2023 4:46 PM EST 12/20/2023 4:49 PM EST us Generic External Data Provider LAB BLOOD ORDERAB LES Final Result [facility] [address] [place] [phone] * (ABNORMAL) CBC auto differential (12/20/2023 4:46 PM EST) White Blood Count 6.9 4.8 - 10.8 X10*3/uL [facility] Red Blood Count 4.79 4.20 - 5.50 X10*6/uL [facility] Hemoglobin 14.7 12.0 - 16.0 g/dl [facility] Hematocrit 41.3 37.0 - 47.0 % [facility] Mean Corpuscular Volume 86.2 80.0 - 98.0 fL [facility] Mean Corpuscular Hemoglobin 30.7 27.0 - 33.0 pg [facility] Mean Corpuscular HGB Conc 35.6(H) 31.0 - 35.0 g/dl [facility] Red Cell Distribution Width 12.7 11.0 - 16.0 % [facility] Platelet Count 158(L) 160 - 400 X10*3/uL [facility] Mean Platelet Volume 9.4 9.4 - 12.3 fL [facility] Neutrophils Percent Auto 57.1 45 - 73 % [facility] Imm Gran Pct Auto 0.1 0.0 - 0.4 % [facility] Lymphocytes Percent Auto 33.5 20 - 40 % [facility] Monocytes Percent Auto 6.8 2 - 11 % [facility] Eosinophils Percent Auto 1.9 0 - 4 % [facility] Basophils Percent Auto 0.6 0 - 2 % [facility] NRBC Pct Auto 0.0 0.0 - 0.2 /100WBC [facility] Neutrophils Absolute Auto 4.0 2.0 - 8.3 x10*3/uL [facility] Imm Gran Abs Auto 0.01 0.00 - 0.03 X10*3/uL [facility] Lymphocytes Absolute Auto 2.3 1.2 - 4.9 X10*3/uL [facility] Monocytes Absolute Auto 0.5 0.1 - 1.2 X10*3/uL [facility] Eosinophils Absolute Auto 0.1 0.0 - 0.4 X10*3/uL [facility] Basophils Absolute Auto 0.0 0.0 - 0.2 X10*3/uL [facility] NRBC Abs Auto 0.000 0.0 - 0.012 X10*3/uL [facility] 12/20/2023 4:46 PM EST 12/20/2023 4:49 PM EST us Generic External Data Provider LAB BLOOD ORDERAB LES Final Result Performing Organization Address City/State/[facility] Co de Phone Number [facility] [address] [place] [phone] * US Abdomen Complete (05/23/2023 9:54 AM EDT) Anatomical Region Laterality Modality Abdomen Ultrasound 05/23/2023 9:54 AM EDT Narrative 05/26/2023 12:12 PM EDT [address] [address] Ultrasound Report Signed Patient: Tiffany Vergara MR#: [id number] 91 : 1965 Acct:[id number] Age/Sex: 58 / F ADM Date: 05/23/23 Loc: HO.US Attending Dr: Maryana Winkler MD Ordering Physician: Maryana Winkler MD Date of Service: 05/23/23 Procedure(s): US abdomen complete Accession Number(s): [id number] cc: Maryana Winkler MD EXAMINATION: US ABDOMEN [...] in OV> 05/26/23 1209 DD/ 0954 TD/TT: Line Leader: SS Procedure Note Donotuseinterpreter, Image - 05/26/2023 [place] [address] Ultrasound Report Signed Patient: Tiffany Vergara MMR#: [id number] 91 : 1965Acct:[id number] Age/Sex: 58 / FADM Date: 05/23/23 Loc: HO.US Attending Dr: Maryana Winkler MD Ordering Physician: Maryana Winkler MD Date of Service: 05/23/23 Procedure(s): US abdomen complete Accession Number(s): [id number] cc: Maryana Winkler MD EXAMINATION: US ABDOMEN [...] in OV> 05/26/23 1209 DD/ 0954 TD/TT: Line Leader: [facility] External Provider IMG US PROCEDURES Edited Result - Final * Hm Mammography (04/03/2023) Anatomical Region Laterality Modality Other Historical Provider HEALTH MAINTENANCE Final Result documented in this encounter Visit Diagnoses Not on filedocumented in this encounter Additional Health Concerns Assessment Noted Time PHQ-9 Depression Total Score: 4 12/14/19 23 9:31 AM EST documented as of this encounter Care Teams Foreign Clerk Relationship Specialty Start Date End Date Maryana Winkler MD [address] [place] [address] PCP - General Family Medicine 11/12/18 documented as of this encounter
--- OUTSIDE RECORDS SUMMARY | 2025-07-14 09:06 | XMS_ITS | Encounter Summary ---
Author Organization [employer] Address [address] [facility] [address] [place] [address] Care Team Providers Care Sod Farmer Name Role Phone Maryana Winkler MD Primary Care Provider [phone] Encounter Details Date Type Department Care Team ([facility] st Contact Info) Description 01/19/2025 Telephone [facility] MEDICINE [address] [place] [address] Maryana Winkler MD [address] [place], [place] [phone] Social History Tobacco Use Types Packs/Day Years [...] Description 08/12/2025 10:15 AM EDT Office Visit [facility] MEDICINE [address] [place] [address] Maryana Winkler MD [address] [place] [address] 10/21/2025 8:00 AM EST Office Visit [facility] ADULT DENTAL [address] [place] [address] [place], [place] [address] [place] [address] documented as of this encounter Visit Diagnoses Not on filedocumented in this encounter Additional Health Concerns Assessment Noted Time PHQ-9 Depression Total Score: 13 024 11:34 AM EST documented as of this encounter Care Teams Sod Farmer Relationship Specialty Start Date End Date Maryana Winkler MD [address] [place] [phone] PCP - General Family Medicine 11/12/18 documented as of this encounter
--- OUTSIDE RECORDS SUMMARY | 2025-07-14 09:06 | XMS_ITS | Encounter Summary ---
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 Name Role Phone Maryana Winkler MD Primary Care Provider [phone] Encounter Details Date Type Department Care Team (Late st Contact Info) Description 04/28/2025 Orders Only [facility] [address] [place], [place] [phone] Provider, MD Cristopher Social History Tobacco Use [...] 10:15 AM EDT Office Visit [facility] MEDICINE [address] [place] [address] Maryana Winkler MD [address] [place] [address] 10/21/2025 8:00 AM EST Office Visit [facility] ADULT DENTAL [address] [place] [address] Werner Henryaris [address] [place] [address] documented as of this encounter Procedures Procedure Name Priority Date/Time Associated Diagnosis Comments XR CHEST 2 VIEWS Routine 05/19/2025 8:30 AM EDT HM MAMMOGRAPHY Routine 04/27/2025 8:52 AM EDT documented in this encounter Results * XR Chest 2 Views (05/19/2025 8:30 AM EDT) Anatomical Region Laterality Modality Chest Radiographic Jalyn ging 05/19/2025 8:30 AM EDT Narrative 05/19/2025 8:48 AM EDT [facility] [address] [place] [phone] XRay Report Signed Patient: Tiffany Vergara MR#: [id number] 91 : 1965 Acct:[id number] Age/Sex: 60 / F ADM Date: 05/19/25 Loc: DAY[facility] Attending Dr: Leonardo Apple PA-C Ordering Physician: Leonardo Apple PA-C Date of Service: 05/19/25 Procedure(s): XR chest 2V Accession Number(s): [id number] cc: Leonardo Apple PA-C; Maryana Winkler MD EXAMINATION: XR CHEST CLINICAL INFORMATION: SOB COMPARISON: 02/04/2025. TECHNIQUE: 2 views of the chest were obtained. FINDINGS: The cardiac, hilar, and mediastinal contours are normal. The lungs are clear bilaterally. There is no pneumothorax or pleural effusion. There is no focal osseous or soft tissue abnormality. 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 XR/XR chest 2V IMPRESSION: No active pulmonary disease. No interval change. Electronically signed by: Peyman Panda MD 05/19/2025 08:45 AM EDT RP Dictated By: Peyman Panda MD Signed By: <Electronically signed by Peyman Panda MD in OV> 05/19/25 0845 DD/ 0830 TD/TT: 05/19/25 0839 Internal Controls Specialist: Procedure Note Donotuseinterpreter, Image - 05/19/2025 [place] [address] XRay Report Signed Patient: Tiffany Vergara MMR#: [id number] 91 : 1965Acct:[id number] Age/Sex: 60 / FADM Date: 05/19/25 Loc: DAY[facility] Attending Dr: Leonardo Apple PA-C Ordering Physician: Leonardo Apple PA-C Date of Service: 05/19/25 Procedure(s): XR chest 2V Accession Number(s): [id number] cc: Leonardo Apple PA-C; Maryana Winkler MD EXAMINATION: XR CHEST CLINICAL INFORMATION: SOB COMPARISON: 02/04/2025. TECHNIQUE: 2 views of the chest were obtained. FINDINGS: The cardiac, hilar, and mediastinal contours are normal. The lungs are clear bilaterally. There is no pneumothorax or pleural effusion. There is no focal osseous or soft tissue abnormality. 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 XR/XR chest 2V IMPRESSION: No active pulmonary disease. No interval change. Electronically signed by: Peyman Panda MD 05/19/2025 08:45 AM EDT Dictated By: Peyman Panda MD Signed By: <Electronically signed by Peyman Panda MD in OV> 05/19/2545 DD/ 9 TD/TT: 05/19/25 0839 Internal Controls Specialist: [facility] External Provider IMG XR PROCEDURES Edited Result - Final * Hm Mammography (04/27/2025 8:52 AM EDT) Anatomical Region Laterality Modality Other Historical Provider HEALTH MAINTENANCE Final Result documented in this encounter Visit Diagnoses Not on filedocumented in this encounter Additional Health Concerns Assessment Noted Time PHQ-9 Depression Total Score: 1 01/29/20 25 2:27 PM EDT documented as of this encounter Care Teams Meat Grader Relationship Specialty Start Date End Date Maryana Winkler MD [address] [place] [address] PCP - General Family Medicine 11/12/18 documented as of this encounter
--- OUTSIDE RECORDS SUMMARY | 2025-07-14 09:06 | XMS_ITS | Clinical Summary ---
Author Organization [employer] Address [address] [place] [address] Care Team Providers Care Pocket Flap Creasing Machine Operator Name Role Phone Maryana Winkler MD Primary Care Provider [phone] Allergies Active Allergy Reactions Criticality Noted Date Comments [place] Oil Anaphylaxis High 12/07/2023 Suzie Oil (Salvia Hispanica) Anaphylaxis High 025 Allergy to Suzie seeds (not an option in epic) Fexofenadine [...] (four) hours. 18 g 12/25/19 23 Active Mometasone Furoate (Asmanex HFA) 200 [...] 10/14/20 24 Active atorvastatin (Lipitor) 40 MG tabletIndication s:Dyslipidemia TAKE 1 TABLET BY MOUTH EVERY EVENING 90 tablet 3 12/04/19 25 Active Diclofenac Sodium 1 % gelIndications:A cute right ankle pain APPLY 2 GRAMS TOPICALLY TO AFFECTED AREA(S) TWICE DAILY NEEDED 350 g 3 01/12/20 25 Active midodrine (Proamatine) 10 MG tablet Take 1 tablet by mouth 3 times daily. 01/16/20 25 Active prazosin (Minipress) 1 MG capsule Take 1 capsule by mouth at bedtime. May take 1 additional capsule as needed for nightmares 01/07/20 25 Active Blood Pressure Monitor [facility] Check BP daily 1 each 02/10/20 25 Active montelukast (Singulair) 10 MG tablet TAKE 1 TABLET BY MOUTH EVERY EVENING 90 tablet 3 03/09/20 25 Active D3 Super Strength 50 MCG (2000 UT) capsule TAKE 1 CAPSULE BY MOUTH EVERY MORNING 30 capsule 3 04/13/20 25 Active EPINEPHrine (Epipen) 0.3 MG/0.3ML injection syringe INJECT INTRAMUSCULARLY DIRECTED ON PACKAGE AND GO TO EMERGENCY ROOM 2 each 1 05/13/20 25 Active gabapentin (Neurontin) 100 MG capsule TAKE 2 CAPSULES BY MOUTH THREE TIMES DAILY IN THE MORNING, EVENING AND BEDTIME 180 capsule 07/09/20 25 Active gabapentin (Neurontin) 100 MG capsule Take 2 capsules (200 mg) by mouth 3 times daily. 180 capsule 05/20/20 Active topiramate 50 MG tablet TAKE 1 TABLET BY MOUTH TWICE DAILY IN THE MORNING AND AT BEDTIME 60 tablet 1 06/10/20 Active Active Problems Problem Noted Date Diagnosed Date Idiopathic urticaria 05/13/2025 Assessment & Plan (05/25/2025 6:13 AM EDT): Following with therapeutic sales specialist Hypotension 02/13/2025 Assessment & Plan (02/13/2025 1:24 [...] EDT): - carry epi-pen - referred to therapeutic sales specialist Chronic headache 02/09/2025 Assessment & Plan [...] reduction - continue following with recommendation from [facility] provider Transaminitis 02/09/2025 Assessment & Plan (05/13/2025 10:12 AM EDT): - In a setting of Hep B - Last liver test: 03/11/25 - Last US / elastography - will update - FIB4 index 1.58 - [place] [facility] [place] continue working on lifestyle modifications - continue surveillance study Food allergy 01/28/2025 Overview (01/28/2025): Suzie and poppy seeds, LAZARO allergy Assessment & Plan (05/25/2025 6:10 AM EDT): - Evaluated by therapeutic sales specialist at [facility], most recent visit 04/28/2025. - Currently identified allergens: suzie seeds, poppy seeds, tree nuts (including coconuts), and guava - Continue avoidance - Carry EpiPen - continue cetirizine Polypharmacy 11/21/2024 Assessment & Plan (11/21/2024 12:29 [...] left eyelid and likely bl allergic conjunctivitis -general warehouse worker evaluation referred today -has apt w [...] on 01/25/[address] Smitha Greene [place] [facility] [place]continue following with recommendations by Orthopedist -no longer in cast -Continue occupational therapy Assessment & Plan (02/08/2023 1:33 PM EDT): S/p surgery on 01/25/23 -continue following with recommendations by Orthopedist -currently in cast -pt would benefit from DIRECTOR OF ACQUISITION MARKETING services Closed displaced fracture of proximal phalanx [...] Plan (12/24/2023 5:49 AM EST): Following with [facility] [place] [facility], last seen in Jun 2023 -Patient was Prescribed Baclofen as visit - continue baclofen - continue lidoderm patches - continue Diclofenac gel - continue acetaminophen prn - judiciously use Ibuprofen/Motrin/Naproxen - continue Gabapentin - recommended to contact Telephoner regarding MRI Scheduling - Telephoner is planning to place a Peripheral Nerve Stimulator after MRI Scan Assessment & Plan (04/30/2023 7:37 PM EDT): Following with [facility] [place] [facility], last seen on 04/02/23 -Patient was Prescribed Baclofen as visit - continue baclofen - continue lidoderm patches - continue Diclofenac gel - continue acetaminophen prn - judiciously use Ibuprofen/Motrin/Naproxen - continue Gabapentin - recommended to contact Telephoner regarding MRI Scheduling - Telephoner is planning to place a Peripheral Nerve Stimulator after MRI Scan Irritable bowel syndrome 08/17/2015 Assessment & Plan (11/11/2024 12:37 PM EST): -following with [facility] [place], last seen in Oct 2023 -prescribed simethicone, metoclopramide, and Linzess -continue current treatment plan per GI Assessment & Plan (12/24/2023 5:46 AM EST): -following with [facility] [place], last seen in Oct 2023 -prescribed simethicone, metoclopramide, and Linzess -continue current treatment plan per GI Assessment & Plan (02/18/2023 7:30 AM EDT): -following [place] [facility] [place] [place] [facility], last seen in [...] Assessment & Plan (11/21/2024 12:25 PM EST): -Reference Services Head: [facility] [place], last visit in 01/22/24 -referred to orthopedist and paint stock clerk -previously taking hydroxychloroquine for possible inflammatory arthritis (Hx LAZARO and RF positive), and it was discontinued by new out of school hours care worker -Patient was interested in CBD treatment previously -Pt has tried physical therapies several times, and currently practicing it at home -patient is attending acupuncture. Encouraged to continue -Encouraged to try Taichi and Yoga as recommended -Decrease gabapentin from 600 to 400 mg tid Assessment & Plan (07/26/2024 6:57 AM EDT): -Reference Services Head: [facility] [place], last visit in 01/22/24 -referred to orthopedist and paint stock clerk -previously taking hydroxychloroquine for possible inflammatory arthritis (Hx LAZARO and RF positive), and it was discontinued by new out of school hours care worker -Patient was interested in CBD treatment previously -Pt has tried physical therapies several times, and currently practicing it at home -patient is attending acupuncture. Encouraged to continue -Encouraged to try Taichi and Yoga as recommended Assessment & Plan (03/18/2024 9:37 AM EDT): -Reference Services Head: [facility] [place], last visit in 01/22/24 -referred to orthopedist and paint stock clerk -previously taking hydroxychloroquine for possible inflammatory arthritis (Hx LAZARO and RF positive), and it was discontinued by new out of school hours care worker -Patient was interested in CBD treatment previously -Pt has tried physical therapies several times -patient is attending acupuncture. -Encouraged to try Taichi and Yoga as recommended -Cont attending Acupuncture, since doing well. Assessment & Plan (12/24/2023 5:50 AM EST): -Reference Services Head: [facility] [place], last visit in 01/18/23 -referred to orthopedist and paint stock clerk -previously taking hydroxychloroquine for possible inflammatory arthritis (Hx LAZARO and RF positive), and it was discontinued by new out of school hours care worker -Patient was interested in CBD treatment previously -Pt has tried physical therapies several times -patient is attending acupuncture. -Encouraged to try Taichi and Yoga as recommended -Cont attending Acupuncture, since doing well. Assessment & Plan (04/23/2023 11:54 AM EDT): -Reference Services Head: [facility] [place], last visit in 01/18/23 -Discontinued Plaquenil -referred to orthopedist and paint stock clerk -still taking hydroxychloroquine for possible inflammatory arthritis (Hx LAZARO and RF positive) -Patient was interested in CBD treatment previously -Pt has tried physical therapies several times -patient is attending acupuncture. -Encouraged to try Taichi and Yoga as recommended -Cont attending Acupuncture, since doing well. Assessment & Plan (02/08/2023 1:19 PM EDT): -Reference Services Head: [facility] [place], last visit in 01/18/23 -Discontinued Plaquenil -referred to orthopedist and paint stock clerk -still taking hydroxychloroquine for possible inflammatory arthritis (Hx LAZARO and RF positive) -Patient was interested in CBD treatment previously -Pt has tried physical therapies several times -patient is attending acupuncture. -Encouraged to try Taichi and Yoga as recommended -Cont attending Acupuncture, since doing well. Chronic type B viral hepatitis 03/25/2014 Assessment & Plan (05/13/2025 7:30 PM EDT): - Hepatitis E antibody reactive, Hep E antigen negative. - Viral load has been small and antiviral medication has not been indicated - Viral load as of 03/11/2025 - 241 - Abd US in May 2023 unremarkable. - Abd CT in May 2024 showed no liver abnormality - 04/24/23 Hep B DNA 60 - 03/18/24 Hep B DNA 48 - recent AST/ALT were slightly elevated - following with GI - recheck lab prior to next visit Assessment & Plan (02/13/2025 1:20 PM EDT): [...] 12:27 PM EST): Behavioral health service provider: Frank, Dr. Amaya Continue current medication and treatment plan per Dr. Amaya Asthma 02/19/2014 Assessment & Plan (05/25/2025 6:13 AM EDT): - Seen by her operations specialists in Aug 2015. - well-controlled recently - currently on mometasone (Asmanex) for maintenance -Consider SMART with either Symbicort or Dulera - continue montelukast - continue albuterol HFA and DuoNeb prn as rescue. - consider another pulmonary fxn test or sleep study if pt continue to has dyspnea - follow up in 3-4 mo Assessment & Plan (11/11/2024 12:36 PM EST): - Seen by her operations specialists in Aug 2015. - well-controlled recently - change Flovent to Asmanex - continue montelukast - continue albuterol HFA and DuoNeb prn as rescue. - consider another pulmonary fxn test or sleep study if pt continue to has dyspnea - follow up in 3-4 mo Assessment & Plan (07/22/2024 9:56 AM EDT): - Seen by her operations specialists in Aug 2015. - well-controlled recently - change Flovent to Asmanex - continue montelukast - continue albuterol HFA and DuoNeb prn as rescue. - consider another pulmonary fxn test or sleep study if pt continue to has dyspnea - follow up in 3-4 mo Assessment & Plan (03/18/2024 9:25 AM EDT): - Seen by her operations specialists in Aug 2015. - well-controlled recently - change Flovent to Asmanex - continue montelukast - continue albuterol HFA and DuoNeb prn as rescue. - consider another pulmonary fxn test or sleep study if pt continue to has dyspnea - follow up in 3-4 mo Assessment & Plan (12/24/2023 5:37 AM EST): - Seen by her operations specialists in Aug 2015. - well-controlled recently - change Flovent to Asmanex - continue montelukast - continue albuterol HFA and DuoNeb prn as rescue. - consider another pulmonary fxn test or sleep study if pt continue to has dyspnea - follow up in 3-4 mo Assessment & Plan (04/30/2023 7:31 PM EDT): - Seen by her operations specialists in Aug 2015. - well-controlled recently - continue Flovent to 2 puff twice daily and Singulair as maintenance. - continue albuterol HFA and DuoNeb prn as rescue. - consider another pulmonary fxn test or sleep study if pt continue to has dyspnea - follow up in 3-4 mo Assessment & Plan (02/08/2023 1:35 PM EDT): Seen by her operations specialists in Aug 2015. increase Flovent to 2 puff twice daily and Singulair as maintenance. Continue albuterol HFA and DuoNeb prn as rescue. -consider another pulmonary fxn test or sleep study if pt continue to has dyspnea Allergic rhinitis 02/19/2014 Assessment & Plan (05/25/2025 6:10 AM EDT): - continue montelukast and cetirizine - Patient was started following with therapeutic sales specialist due to multiple hypersensitivity reactions Assessment & Plan (12/24/2023 5:54 AM EST): - continue montelukast and antihistamine Constipation 08/15/2013 Assessment & Plan (05/13/2025 7:31 PM EDT): [place] with [facility] [place] Fiber rich diet Continue Dulcolax and Linzess Assessment & Plan (11/11/2024 12:36 PM EST): Following with [facility] [place] Fiber rich diet Continue Dulcolax and Linzess Assessment & Plan (12/24/2023 5:45 AM EST): Following with [facility] [place] Fiber rich diet [...] Gastroesophageal reflux disease 09/25/2012 Assessment & Plan (05/13/2025 10:11 AM EDT): -Following with [facility] [place] [facility], last seen in Oct 2023 -Continue Dexilant as prescribed by GI Assessment & Plan (11/11/2024 12:37 PM EST): -Following with [facility] [place] [place], last seen in Oct 2023 -Continue Dexilant as prescribed by GI Assessment & Plan (12/24/2023 5:46 AM EST): -Following with [facility] [place] [place], last seen in Oct 2023 -Continue Dexilant as prescribed by GI Assessment & Plan (02/18/2023 7:29 AM EDT): -Following with [facility] [place] [place], last seen in [...] Encounters Date Type Department Care Team Description 06/25/2025 9:00 AM EDT Office Visit [facility] [address] [place] [address] Elzbieta Wells MD Fibromyalgia (Primary Dx); Generalized anxiety disorder 06/25/2025 Travel 06/22/2025 9:00 AM EDT Office Visit [facility] [address] [place] [id number] Elzbieta Wells MD Fibromyalgia (Primary Dx); Generalized anxiety disorder 06/22/2025 Travel 06/15/2025 9:00 AM EDT Office Visit [facility] [address] [place] [address] Elzbieta Wells MD Fibromyalgia (Primary Dx); Generalized anxiety disorder 06/15/2025 Travel 06/11/2025 9:00 AM EDT Office Visit [facility] [address] [place] [address] Elzbieta Wells MD Fibromyalgia (Primary Dx); Generalized anxiety disorder 06/11/2025 Travel 06/10/2025 Refill [facility] [address] [place] [address] Maryana Winkler MD 06/08/2025 9:00 AM EDT Office Visit [address] [address] Elzbieta Wells MD Fibromyalgia (Primary Dx); Generalized anxiety disorder 06/08/2025 Travel 06/04/2025 9:30 AM EDT Office Visit [facility] [address] [place] [address] Elzbieta Wells MD Fibromyalgia (Primary Dx); Generalized anxiety disorder 06/04/2025 Travel 06/01/2025 9:00 AM EDT Office Visit [facility] [address] [place] [address] Elzbieta Wells MD Fibromyalgia (Primary Dx); Generalized anxiety disorder 06/01/2025 Travel 05/28/2025 9:00 AM EDT Office Visit [facility] [address] [place] [address] Elzbieta Wells MD Fibromyalgia (Primary Dx); Generalized anxiety disorder 05/28/2025 Travel 05/25/2025 9:00 AM EDT Office Visit [facility] [address] [place] [address] Elzbieta Wells MD Fibromyalgia (Primary Dx); Generalized anxiety disorder 05/25/2025 Travel 05/21/2025 9:00 AM EDT Office Visit [facility] [address] [place] [id number] Elzbieta Wells MD Fibromyalgia (Primary Dx); Generalized anxiety disorder 05/21/2025 Travel 05/19/2025 Refill [facility] [address] [place] [address] Maryana Winkler MD 05/18/2025 9:15 AM EDT Office Visit [facility] [address] [place] [phone] Elzbieta Wells MD Fibromyalgia (Primary Dx); Generalized anxiety disorder 05/18/2025 Travel 05/18/2025 Refill [facility] [address] [place] [address] Maryana Winkler MD 05/13/2025 9:15 AM EDT Office Visit [facility] [address] [place] [address] Maryana Winkler MD Food allergy (Primary Dx); Allergic rhinitis, unspecified seasonality, unspecified trigger; Mild intermittent asthma without complication; Idiopathic urticaria; Chronic idiopathic constipation; Gastroesophageal reflux disease, unspecified whether esophagitis present; Transaminitis; Chronic type B viral hepatitis ([facility]) 05/13/2025 Travel 05/12/2025 9:00 AM EDT Office Visit [facility] [address] [place] [phone] Elzbieta Wells MD Fibromyalgia (Primary Dx) 05/12/2025 Telephone [facility] [address] [place] [phone] Maryana Winkler MD Chart Prep 05/12/2025 Refill [facility] [address] [place] [phone] Maryana Winkler MD 05/12/2025 Travel 05/07/2025 9:00 AM EDT Office Visit [facility] [address] [place] [phone] Elzbieta Wells MD Fibromyalgia (Primary Dx); Generalized anxiety disorder 05/07/2025 Travel 05/04/2025 9:00 AM EDT Office Visit [facility] [address] [place] [id number] Elzbieta Wells MD Fibromyalgia (Primary Dx) 05/04/2025 Travel 04/28/2025 Orders Only [facility] [address] [place] [address] Cristopher Cosme MD 04/23/2025 9:00 AM EDT Office Visit [facility] [address] [place] [address] Elzbieta Wells MD Fibromyalgia (Primary Dx) 04/23/2025 Travel 04/21/2025 9:00 AM EDT Office Visit [facility] [address] [place] [phone] Elzbieta Wells MD Fibromyalgia (Primary Dx); Generalized anxiety disorder 04/21/2025 Travel 04/17/2025 Refill [facility] [address] [place] [address] Maryana Winkler MD 04/16/2025 9:00 AM EDT Office Visit [facility] [address] [place] [phone] Elzbieta Wells MD Fibromyalgia (Primary Dx) 04/16/2025 Travel 04/13/2025 9:00 AM EDT Office Visit [facility] [address] [place] [address] Elzbieta Wells MD Fibromyalgia (Primary Dx) 04/13/2025 Travel from Last 3 Months Immunizations Immunization Administration Dates Next Due Hep A, Adult [...] Sign Reading Time Taken Comments Blood Pressure 118/78 05/13/2025 9:52 AM EDT Pulse 72 05/13/2025 9:32 AM EDT Temperature 36 C (96.8 F) 05/13/2025 9:32 AM EDT Respiratory Rate 14 05/13/2025 9:32 AM EDT Oxygen Saturation 100% 05/13/2025 9:32 AM EDT Inhaled Oxygen Concentration - - Weight 54 kg (119 lb) 05/13/2025 9:32 AM EDT Height 149.9 cm (4' 11 ) 05/13/2025 9:32 AM EDT Body Mass Index 24.04 05/13/2025 9:32 AM EDT Plan of Treatment Upcoming Encounters Date Type Department Care Team (Late st Contact Info) Description 08/12/2025 10:15 AM EDT Office Visit [facility] [address] [place] [address] Maryana Winkler MD [address] [place] [address] 10/21/2025 8:00 AM EST Office Visit [facility] [address] [place] [address] Enid Henry [address] [place] [address] Health Maintenance Due Date Last Done Comments CT Colonography 1965 FIT DNA/Cologuard 1965 FIT 1965 FOBT 1965 Sigmoidoscopy 1965 RSV Patients and Patients Aged 60 years or older (1 - Risk 60-74 years 1-dose series) 2024 COVID-19 Vaccine ( season) 2024 12/18/2023, 12/14/2022, 02/21/2022, Additional history exists Pap Smear 01/16/2025 01/16/2022 Influenza Vaccine (#1) 2025 , 12/18/2023, 10/20/2021 Dental Oral Exam 10/11/2025 04/09/2025, , 03/29/2023, Additional history exists Dental Prophylaxis 10/11/2025 04/09/2025, 0 07/15/2024, 12/07/2023, Additional history exists Diagnostic Breast Imaging 10/27/20252024, 10/27/2024, 04/29/2024, Additional history exists Mammogram 10/27/2025 04/27/2025, 10/12, 04/29/2024, Additional history exists Alcohol/Substance Use Screening 11/11/2025 11/11/2024 Depression Screening 01/28/2026 01/28/2025, 01/29/20 25 SDOH Screening 01/28/2026 01/28/2025 Dental X-Ray: Bitewings 04/10/2026 04/09/20 25, 03/29/2023, 03/23/2022, Additional history exists Colonoscopy 2026 2016 Colorectal Cancer Screening 2026 Disability Screening 05/13/2026 05/13/2025 Tobacco Screening 05/13/2026 05/13/2025 Cervical Cancer Screening 01/16/2027 HPV/Cotest 01/16/2027 01/16/2022 Dental X-Ray: Full Mouth 04/10/2028 025, 03/16/2021, 09/29/2016 DTaP/Tdap/Td Vaccines (3 - Td or Tdap) 06/13/2032 06/13/2022, 12/01/2011 Hepatitis B Vaccines Completed 09/29/2014, 05/06/2014, 03/25/2014 Hepatitis A Vaccines Completed 04/02/2017, 03/25/20 14 Zoster Vaccines Completed 05/18/2020, 11/24/2019 HIV Screening Completed 10/24/2021 Hepatitis C Screening Completed 10/24/2021 Pneumococcal Vaccine: 50+ Years Completed 02/08/2023, 02/19/2014 HIB Vaccines Aged Out No longer eligi ble based on patient's age to complete this topic HPV Vaccines Aged Out No longer eligi ble based on patient's age to complete this topic IPV Vaccines Aged Out No longer eligi ble based on patient's age to complete this topic Meningococcal B Vaccine Aged Out No l onger eligible based on patient's age to complete [...] HM MAMMOGRAPHY Routine 04/27/2025 8:52 AM EDT PROPHYLAXIS - ADULT Routine 04/09/2025 1 1:00 AM EDT Dental plaque Missing teeth, acquired Localized gingival recession INTRAORAL - COMPLETE SERIES OF RADIOGRAPHIC IMAGES Routine 04/09/2025 11:00 AM EDT Dental plaque Missing teeth, acquired Localized gingival recession PERIODIC ORAL EVALUATION - ESTABLISHED PATIENT Routine 04/09/2025 11:00 AM EDT THINPREP IMAGING PAP AND HPV MRNA E6/E7, WITH CT/NG, TRICHOMONAS Routine 01/16/2022 1:29 PM EST ZZZ HISTORICAL HEPATITIS C AB W/REFL TO HCV RNA, QN, PCR Routine 10/24/2021 8:20 AM EST HIV 1/2 ANTIGEN/ANTIBODY, FOURTH GENERATION W/RFL Routine 10/24/2021 8:20 AM EST HM COLONOSCOPY Routine 2016 from Last 3 Months or Most Recently Relevant to Health Maintenance Results * XR Chest 2 Views (05/19/2025 8:30 AM EDT) Anatomical Region Laterality Modality Chest Radiographic Jalyn ging 05/19/2025 8:30 AM EDT Narrative 05/19/2025 8:48 AM EDT [address] [address] XRay Report Signed Patient: Tiffany Vergara MR#: [id number] 91 : 1965 Acct:[id number] Age/Sex: 60 / F ADM Date: 05/19/25 Loc: [facility] Attending Dr: Leonardo Apple PA-C Ordering Physician: Leonardo Apple PA-C Date of Service: 05/19/25 Procedure(s): XR chest 2V Accession Number(s): [id number] cc: Leonardo Apple PA-C; Maryana Winkler MD [...] MD in OV> 05/19/2545 DD/ 9 TD/TT: 05/19/25838 Coffee Roaster Helper: Procedure Note Donotuseinterpreter, Image - 05/19/[address] [address] XRay Report Signed Patient: Tiffany Vergara MMR#: [id number] 91 : 1965Acct:[id number] Age/Sex: 60 / FADM Date: 05/19/25 Loc: [facility] Attending Dr: Leonardo Apple PA-C Ordering Physician: Leonardo Apple PA-C Date of Service: 05/19/25 Procedure(s): XR chest 2V Accession Number(s): [id number] cc: Leonardo Apple PA-C; Maryana Winkler MD [...] 05/19/25 0845 DD/ 0830 TD/TT: 05/19/25 0839 Coffee Roaster Helper: [facility] External Provider IMG XR PROCEDURES Edited Result - Final * Hm Mammography (04/27/2025 8:52 AM EDT) Anatomical Region Laterality Modality Other Historical Provider HEALTH MAINTENANCE Final Result * THINPREP TIS PAP AND HPV mRNA E6/E7, CT/NG, TRICH (01/16/2022 1:29 PM EST) Chlamydia trachomatis RNA, TMA, Urogenital NOT DETECTED NOT DETECTED [facility] Clinical Information: None given [facility] COMMENT SEE COMMENT [facility] Comment: The analytical performance characteristics of this assay, when used to test SurePath(TM) specimens have been determined by [facility]. The modifications have not been cleared or approved by the FDA. This assay has been validated pursuant to the CLIA regulations and is used for clinical purposes. For additional information, please refer to https://education.[employer]/faq/XBH354 (This link is being provided for information/ educational purposes only.) COMMENT SEE [facility] Comment: EXPLANATORY NOTE: The Pap is a screening test for cervical cancer. It is not a diagnostic test and is subject to false negative and false positive results. It is most reliable when a satisfactory sample, regularly obtained, is submitted with relevant clinical findings and history, and when the Pap result is evaluated along with historic and current clinical information. COMMENT: This Pap test has been evaluated with computer assisted technology. [facility] Rubber Stamp Die Inspector: SEE COMMENT [facility] Comment: RXB, CT(ASCP) CT screening location: [place] [address] HPV nRNA E6/E7 Not Detected Not Detected [facility] Comment: Methodology: Cuffing Machine Operator-Mediated Amplification This assay detects E6/E7 viral messenger RNA (mRNA) from 14 high-risk HPV types (16,18,31,33,35,39,45,51,52,56,58,59,66,68). The analytical performance characteristics of this assay have been determined by [employer]. The modifications have not been cleared or approved by the FDA. This assay has been validated pursuant to the CLIA regulations and is used for clinical purposes. For additional information, please refer to http://[employer]/faq/BDZ263x2 (This link if provided for information/ educational purposes only.) Interpretation/Re sult: Negative for intraepithelial lesion or malignancy. [facility] LMP: NONE [facility] Neisseria gonorrhoeae RNA, TMA, Urogenital NOT DETECTED NOT DETECTED [facility] Prev. BX: NONE [facility] Prev. PAP: NONE [facility] SOURCE: None given [facility] Statement Of Adequacy: SEE COMMENT [facility] Comment: Satisfactory for evaluation. Endocervical/transformation zone component absent. Age and/or menstrual status not provided Trichomonas vaginalis, QL, TMA, PAP Vial NOT DETECTED NOT DETECTED [facility] Comment: The analytical performance characteristics of this assay have been determined by [employer]. The modifications have not been cleared or approved by the FDA. This assay has been validated pursuant to the CLIA regulations and is used for clinical purposes. For additional information, please refer to http://education.[employer]/ faq/Trichomonastma (This link is being provided for information/ educational purposes only.) 01/16/2022 1:29 PM EST Maryana Winkler MD LAB PATHOLOGY ORDERABLES Final R esult Performing Organization Address [facility] Phone Number [facility] [address] [place] [address], * HEPATITIS C AB W/REFL TO HCV RNA, QN, PCR (10/24/2021 8:20 AM EST) HEPATITIS C ANTIBODY NON-REACT IMTIAZ NON-REACT IMTIAZ [facility] INDEX 0.02 <1.00 [facility] Comment: HCV antibody was non-reactive. There is no laboratory evidence of HCV infection. In most cases, no further action is required. However, if recent HCV exposure is suspected, a test for HCV RNA (test code 09969) is suggested. For additional information please refer to http://[employer]/faq/DYD44z6 (This link is being provided for informational/ educational purposes only.) 10/24/2021 8:20 AM EST Maryana Winkler MD HISTORICAL/NON ORDERABLE LABS Fi nal Result Performing Organization Address [facility] Phone [facility] [place] [address], * HIV 1/2 ANTIGEN/ANTIBODY,FOURTH GENERATION W/RFL (10/24/2021 8:20 AM EST) HIV-1/2 ANTIGEN AND ANTIBODIES, 4TH GENERATION W/ REFLEX NON-REACT IMTIAZ NON-REACT IMTIAZ [facility] Comment: HIV-1 antigen and HIV-1/HIV-2 antibodies were not detected. There is no laboratory evidence of HIV infection. PLEASE NOTE: This information has been disclosed to you from records whose confidentiality may be protected by state law. If your state requires such protection, then the state law prohibits you from making any further disclosure of the information without the specific written consent of the person to whom it pertains, or as otherwise permitted by law. A general authorization for the release of medical or other information is NOT sufficient for this purpose. For additional information please refer to http://education.Bern[employer] Films/faq/YOO751 (This link is being provided for informational/ educational purposes only.) The performance of this assay has not been clinically validated in patients less than 2 years old. 10/24/2021 8:20 AM EST Maryana Winkler MD LAB BLOOD ORDERABLES Final Resul t [facility] [address] * (ABNORMAL) Colonoscopy (2016) [facility] Signature Colonoscopy Normal(A) Normal 2016 Estee Smith [facility] Edited Result - Final from Last 3 Months or Most Recently Relevant to Health Maintenance Insurance [facility] ONE CARE < 65 MELISSA JARRETT [id number] Advance Directives Documents on File Type Date Recorded Patient Reproduction Technician Expl anation HealthCare Proxy 03/12/2023 Health Care Proxy Form Care Teams Pocket Flap Creasing Machine Operator Relationship Specialty Start Date End Date Maryana Winkler MD [address] [place] [id number] PCP - General Family Medicine 11/12/18
== END 2025-07-14 08:29 | disposition home or self-care (01) ==
LOC: HO.US 08:28
PROVIDERS: PCP Family Medicine; Visit Provider Family Medicine
DX: R74.01 Elevation of levels of liver transaminase levels (principal)
CPT/HCPCS: 76700; 76981

== ENCOUNTER → 2025-07-14 08:30 | Outpatient (BNV) | payer OTHER, SELFPAY | PROVIDERS: PCP Family Medicine; Visit Provider Radiology Diagnostic Radiology | DX: R74.01 Elevation of levels of liver transaminase levels (principal) | CPT/HCPCS: 76700 ==

== ENCOUNTER 2025-08-13 13:25 | Outpatient (AMB) | payer OTHER, SELFPAY ==
--- OUTSIDE RECORDS SUMMARY | 2025-08-11 09:00 | XMS_ITS | Encounter Summary ---
Author Organization [employer] Address [address] [facility] [address] [place] [address] Care Team Providers Care Kids Activities Coach Name Role Phone Maryana Winkler MD Primary Care Provider [phone] Reason for Visit * Reason Comments Acupuncture Encounter Details Date Type Department Care Team ([facility] st Contact Info) Description 08/11/2025 9:00 AM EDT Office Visit [facility] MED[facility] [address] [place] [address] Elzbieta Wells MD [address] [place] [address] Fibromyalgia (Primary Dx); Generalized anxiety disorder Social History Tobacco Use Types Packs/Day Years [...] AM EDT documented as of this encounter Progress Notes * Elzbieta Wells MD - 08/11/2025 9:00 AM EDT Subjective Patient ID: Tiffany Vergara is a 60 y.o. female who presents for acupuncture. Tiffany is here for ongoing acupuncture treatments for fibromyalgia and anxiety. She continues to experience pain reduction and stress relief with treatment. Objective Physical Exam Constitutional: Appearance: Normal appearance. Skin: General: Skin is warm and dry. Neurological: Mental Status: She is alert and oriented to person, place, and time. Mental status is at baseline. Assessment/Plan Diagnoses and all orders for this visit: Fibromyalgia Anxiety Written consent obtained for ear acupuncture. Ears prepped with alcohol pad. Five ear points needled bilaterally: Sympathetic, Corona Men, Kidney, Liver and Lung. Treatment duration: 30 minutes. Good hemostasis. Patient tolerated well. Follow up weekly for repeat acupuncture treatments as desired. Ear seeds placed on Corona Men bilaterally. documented in this encounter Plan of Treatment Upcoming Encounters Date Type Department Care Team (Late st Contact Info) Description 10/21/2025 8:00 AM EST Office Visit [facility] ADULT DENTAL [address] [place] [address] Carl, [place] [address] [place] [address] documented as of this encounter Visit Diagnoses Diagnosis Fibromyalgia- Primary Unspecified myalgia and myositis Generalized anxiety disorder documented in this encounter Additional Health Concerns Assessment Noted Time PHQ-9 Depression Total Score: 1 01/29/20 25 2:27 PM EDT documented as of this encounter Care Teams Kids Activities Coach Relationship Specialty Start Date End Date Maryana Winkler MD [address] [place] [address] PCP - General Family Medicine 11/12/18 documented as of this encounter
--- OUTSIDE RECORDS SUMMARY | 2025-08-12 10:15 | XMS_ITS | Encounter Summary ---
Author Organization [employer] Address [address] [facility] [address] [place] [address] Care Team Providers Care Machine Stapler Name Role Phone Maryana Winkler MD Primary Care Provider [phone] Encounter Details Date Type Department Care Team ([facility] st Contact Info) Description 08/12/2025 10:15 AM EDT Office Visit [facility] MEDICINE [address] [place], [place] [phone] Maryana Winkler MD [address] [place], [place] [phone] Encounter for immunization Social History Tobacco Use Types Packs/Day Years [...] Access Q2 Not on file 01/28/2025 Comments No Sex and Gender Information Value Date Recorded Sex Assigned at Female 09/11/2022 10:21 AM EDT Legal Sex Female 10:21 AM EDT Gender Identity Female 09/11/2022 10:21 AM EDT Sexual Orientation Straight 09/11/2022 10 :21 AM EDT documented as of this encounter Last Filed Vital Signs Vital Sign Reading Time Taken Comments Blood Pressure 118/70 08/12/2025 10:21 AM EDT Pulse 64 08/12/2025 10:21 AM EDT Temperature 35.8 C (96.4 F) 08/12/2025 10:21 AM EDT Respiratory Rate 15 08/12/2025 10:21 AM EDT Oxygen Saturation 95% 08/12/2025 10:21 AM EDT Inhaled Oxygen Concentration - - Weight 54.7 kg (120 lb 9.6 oz) 08/12/2025 10:21 AM EDT Height 149.9 cm (4' 11 ) 08/12/2025 10:21 AM EDT Body Mass Index 24.36 08/12/2025 10:21 AM EDT documented in this encounter Plan of Treatment Upcoming Encounters Date Type Department Care Team (Late st Contact Info) Description 10/21/2025 8:00 AM EST Office Visit [facility] ADULT DENTAL [address] [place] [address] Carl, [place] [address] [place] [address] documented as of this encounter Visit Diagnoses Diagnosis Encounter for immunization documented in this encounter Additional Health Concerns Assessment Noted Time PHQ-9 Depression Total Score: 1 01/29/20 25 2:27 PM EDT documented as of this encounter Care Teams Machine Stapler Relationship Specialty Start Date End Date Maryana Winkler MD [address] [place] [address] PCP - General Family Medicine 11/12/18 documented as of this encounter
--- NOTE | 2025-08-13 13:40 | A.OFFVIS_ITS ---
Vital Signs 08/13/25 13:41 Height 5 ft 2 in Weight 120 lb 13.013 oz BMI 22.1 BP 116/60 Blood Pressure Location Lt brachial Position Sitting Pulse 62 Pulse Source Pulse Oximeter Intake Visit Reasons: follow up / echo prior Integrated Marketing Intern Required: Yes Integrated Marketing Intern Name: Reggie [id number] Marcus Accompanied by: Self / Same As Patient Allergies No Known Drug Allergies Allergy (Unknown, Verified 08/13/25 13:46) none Juan seeds Allergy (Uncoded 02/04/25 17:14) Anaphylaxis poppy seeds Allergy (Uncoded 02/04/25 17:14) Itching Medication List - Last Reconciled 08/14/25 by HARRIET Vazquez albuterol sulfate 90 mcg/actuation 2 puffs inhalation Q6H PRN arm brace (Wrist Support One Size) As directed atorvastatin 40 mg PO DAILY bisacodyl 10 mg (2 x 5 mg) PO BEDTIME bupropion HCl XL 300 mg PO QAM buspirone 30 mg PO BEDTIME cholecalciferol (vitamin D3) (Vitamin D3) 50 mcg PO QAM [cock up splint wear on each wrist at night.] Dexilant (dexlansoprazole) 60 mg PO BEDTIME NS diclofenac sodium 1% 2 grams topical BID PRN dicyclomine 10 mg PO TID PRN docusate sodium 200 mg (2 x 100 mg) PO BEDTIME PRN duloxetine 60 mg PO BID fluticasone propionate 50 mcg/actuation 1 spray intranasal QAM PRN gabapentin mg PO hydroxyzine HCl 50 mg PO BEDTIME 90 days lidocaine 4% 1 patch topical DAILY PRN linaclotide (Linzess) 290 mcg PO QAM loratadine 10 mg PO DAILY magnesium oxide 400 mg PO QAM melatonin 3 mg PO BEDTIME PRN metoclopramide HCl 10 mg PO QID midodrine 10 mg PO TID 90 days mometasone 200 mcg/actuation (Asmanex HFA) 1 puff inhalation BID montelukast (Singulair) 10 mg PO DAILY neomycin-polymyxin B-dexameth 3.5mg/mL-10,000 unit/mL-0.1 % 1 drp ophthalmic (eye) QID prazosin 1 - 2 mg PO BEDTIME simethicone 180 mg PO QID sumatriptan succinate take 1 tab at onset of headache; if no relief, may repeat 1 tab after at least 2 hrs; max = 2 tabs/24 hrs PO topiramate 50 mg PO BID HPI HPI follow up / echo prior: Details: Tiffany is a 60-year-old female with past medical history of asthma, 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 Today she reports that she does get episodes of shortness of breath that occur periodically. When she has shortness of breath the symptom will last much of that day with intermittent coughing at times. For the most part she is able to stay physically active and go to the gym using the machines and stationary bike. She will get short of breath at times and uses her albuterol inhaler which relieves the symptom. She has no chest discomfort at rest or during activity. She will feel occasional heart palpitations, nothing that causes her much concern. No dizziness, presyncope, syncope, falls. Compliant with meds. Certified automotive parts interpreter used. [facility] Medical History (Updated 08/14/25 @ 09:43 by Alondra Covarrubias, CLINICAL LABORATORY MANAGER-C) GERD (gastroesophageal reflux disease) Diverticulitis Bilateral carpal tunnel syndrome Polyarthralgia Fracture of proximal phalanx of right thumb Carpal tunnel syndrome of left wrist Distal radius fracture, left Asthma Hepatitis B Fibromyalgia Surgical History H/O breast surgery H/O reduction mammoplasty Hx of abdominoplasty (~2004) History of open reduction and internal fixation (ORIF) procedure (~02/2018) Hx of section (~1979) Hx of colonoscopy Family History Father Lung cancer Diabetes Hepatitis Brother Diabetes Lung cancer Sister Gastritis Social History Household Members: Family Housing: House Do you presently have visiting nurse or other home services: No Alcohol intake: never Patient Tobacco Use Status: Never used Tobacco e-Cigarette/Vaping Use: Never Used Advance Directives Date on File: 01/10/25 service: No Review of Systems Const All systems reviewed & are unremarkable except as noted in HPI and below Denies daytime sleepiness, Denies difficulty sleeping, Denies snoring, Denies stops breathing during sleep and Denies weakness Card Denies chest pain, Denies rapid heart rate, Denies irregular heart rhythm, De nies claudication, Denies leg edema, Denies lightheadedness, Reports palpitations, Reports dyspnea, Denies dyspnea on exertion, Denies orthopnea, Denies paroxysmal nocturnal dyspnea and Denies slow heart rate Resp Denies cough, Reports dyspnea, Denies dyspnea on exertion and Denies snoring GI Reports no additional complaints, Denies hematochezia, Denies change in stool character and Denies dyspepsia Musc Denies abnormal gait, Reports muscle cramps, Denies muscle weakness and Denies numbness Neuro Denies abnormal gait, Denies numbness and Denies weakness Endo Reports palpitations Physical Exam Vital Signs: Last Vital Signs Pulse 62 08/13/25 13:41 BP 116/60 08/13/25 13:41 BMI result Body Mass Index 22.1 Const General: comfortable and no acute distress Orientation/consciousness: patient oriented x3 HEENT Other: Unremarkable Neck Neck: Yes normal visual inspection Chest Chest palpation & inspection: normal inspection of the chest Resp Auscultation: clear to auscultation bilaterally Cardio Heart sounds: S1 normal heart sound present, S2 normal heart sound present, no gallops, no murmurs and no rubs Back/Spine/Pelvis Other: unremarkable Skin General skin exam: no rashes or lesions noted Neuro General: patient oriented x3 Extrem General: Yes normal to inspection Assessment & Plan Assessment & Plan (1) Shortness of breath: Code(s): R06.02 - Shortness of breath Category: Medical Plan: Periodic episodes of shortness of breath with cough, relieved with albuterol inhaler. Cardiac evaluation includes EKG 02/04/2025 showing normal sinus rhythm, rate 81. Echocardiogram done 06/22/2025 shows EF 63%, no valve abnormalities, no regional wall motion abnormalities, normal diastolic function. She has no anginal sounding symptoms. No further testing needed at this time. Her shortness of breath is likely related to her asthma. (2) Palpitation: Code(s): R00.2 - Palpitations Category: Medical Plan: Report of brief intermittent heart palpitations, not causing much concern. Last EKG showed sinus rhythm. Pulse is regular on examination. Offered Holter monitor and she declines. Plan Time spent on chart review, documentation, interview assessment Coding Level of Care Code Est Pt Level 3 (20970) Complex EM visit Add On G2211 Diagnoses Shortness of breath R06.02 Palpitation R00.2 Time Spent (min) 24
[2025-08-13 13:41] VITALS: BP 116/60; PULSE 62; BMI 22.1
--- OUTSIDE RECORDS SUMMARY | 2025-08-13 14:57 | XMS_ITS | Encounter Summary ---
Author Organization [employer] Address [address] [facility] [address]t [place] [address] Care Team Providers Care Munitions Handler Supervisor Name Role Phone Maryana Winkler MD Primary Care Provider [phone] Encounter Details Date Type Department Care Team ([facility] st Contact Info) Description 01/11/2025 Orders Only [facility] [address] [place], [place] [phone] Maryana Winkler MD [address] [place] [address] Acute right ankle pain Social History Tobacco [...] Description 10/21/2025 8:00 AM EST Office Visit [facility] ADULT DENTAL [address] [place] [address] [place], [place] [address] [place] [address] documented as of this encounter Visit Diagnoses Diagnosis Acute right ankle pain documented in this encounter Additional Health Concerns Assessment Noted Time PHQ-9 Depression Total Score: 13 024 11:34 AM EST documented as of this encounter Care Teams Munitions Handler Supervisor Relationship Specialty Start Date End Date Maryana Winkler MD [address] [place] [address] PCP - General Family Medicine 11/12/18 documented as of this encounter
--- OUTSIDE RECORDS SUMMARY | 2025-08-13 14:57 | XMS_ITS | Encounter Summary ---
Author Organization [employer] Address [address] [facility] [address] [place] [address] Care Team Providers Care Returned Goods Receiving Clerk Name Role Phone Maryana Winkler MD Primary Care Provider [phone] Encounter Details Date Type Department Care Team (Latest Contact Info) Description 08/12/2025 Travel Social History Tobacco Use Types Packs/Day Years [...] Description 10/21/2025 8:00 AM EST Office Visit [facility] ADULT DENTAL [address] [place] [address] [place] [address] [place] [address] documented as of this encounter Visit Diagnoses Not on filedocumented in this encounter Additional Health Concerns Assessment Noted Time PHQ-9 Depression Total Score: 1 01/29/20 25 2:27 PM EDT documented as of this encounter Care Teams Returned Goods Receiving Clerk Relationship Specialty Start Date End Date Maryana Winkler MD [address] [place] [address] PCP - General Family Medicine 11/12/18 documented as of this encounter
--- OUTSIDE RECORDS SUMMARY | 2025-08-13 14:57 | XMS_ITS | Encounter Summary ---
Author Organization [employer] Address [address] [facility] [address]t [place] [address] Care Team Providers Care Lopper Name Role Phone Maryana Winkler MD Primary Care Provider [phone] Encounter Details Date Type Department Care Team ([facility] st Contact Info) Description 01/19/2025 Telephone [facility] MED[facility] [address] [place], [place] [phone] Maryana Winkler MD [address] [place] [address] Social History Tobacco Use Types Packs/Day Years [...] Description 10/21/2025 8:00 AM EST Office Visit [facility] ADULT DENTAL [address] [place] [address] Werner Henryaris [address] [place] [address] documented as of this encounter Visit Diagnoses Not on filedocumented in this encounter Additional Health Concerns Assessment Noted Time PHQ-9 Depression Total Score: 13 024 11:34 AM EST documented as of this encounter Care Teams Lopper Relationship Specialty Start Date End Date Maryana Winkler MD [address] [place] [address] PCP - General Family Medicine 11/12/18 documented as of this encounter
--- OUTSIDE RECORDS SUMMARY | 2025-08-13 14:57 | XMS_ITS | Encounter Summary ---
Author Organization [employer] Address [address] [place] [address] 7 [place] [address] Care Team Providers Care Embedded Software Design Engineer Name Role Phone Maryana Winkler MD Primary Care Provider [phone] Encounter Details Date Type Department Care Team (Latest Contact Info) Description 03/23/2022 Abstract [facility] CONVERSIONS Dental, Provider, DDS Social History [...] Description 10/21/2025 8:00 AM EST Office Visit [facility] ADULT DENTAL [address] [place] [address] Carl [place] [address] [place] [address] documented as of this encounter Visit Diagnoses Not on filedocumented in this encounter Care Teams Embedded Software Design Engineer Relationship Specialty Start Date End Date Maryana Winkler MD [address] [place] [address] PCP - General Family Medicine 11/12/18 documented as of this encounter
--- OUTSIDE RECORDS SUMMARY | 2025-08-13 14:57 | XMS_ITS | Encounter Summary ---
Author Organization [employer] Address [address] [facility] 7t [place] [address] Care Team Providers Care Water Restoration Technician Name Role Phone Maryana Winkler MD Primary Care Provider [phone] Encounter Details Date Type Department Care Team (Latest Contact Info) Description 08/11/2025 Travel Social History Tobacco Use Types Packs/Day [...] Description 10/21/2025 8:00 AM EST Office Visit [facility] ADULT DENTAL [address] [place] [address] Enid Henry [address] [place] [address] documented as of this encounter Visit Diagnoses Not on filedocumented in this encounter Additional Health Concerns Assessment Noted Time PHQ-9 Depression Total Score: 1 01/29/20 25 2:27 PM EDT documented as of this encounter Care Teams Water Restoration Technician Relationship Specialty Start Date End Date Maryana Winkler MD [address] [place] [address] PCP - General Family Medicine 11/12/18 documented as of this encounter
--- OUTSIDE RECORDS SUMMARY | 2025-08-13 14:57 | XMS_ITS | Encounter Summary ---
Author Organization [employer] Address [address] [facility] 7t [place] [address] Care Team Providers Care School Cafeteria Cook Head Name Role Phone Maryana Winkler MD Primary Care Provider [phone] Reason for Visit * Reason Onset Date Comments chart prep 08/11/2025 Encounter Details Date Type Department Care Team ([facility] st Contact Info) Description 08/11/2025 Telephone [facility] MEDICINE [address] [place], [place] [phone] Maryana Winkler MD [address] [place], [place] [phone] chart prep Social History Tobacco Use Types Packs/Day Years [...] encounter Miscellaneous Notes * Telephone Encounter - Toña Sahni [place] - 08/11/2025 11:28 AM EDT ..Chart Prep Labs: done Images: Done us Vaccines due: Covid Due, Flu Due, and RSV in Pharmacy Due Referrals: Not Applicable Screenings: Not Applicable Overdue care gaps: None documented in this encounter Plan of Treatment Upcoming Encounters Date Type Department Care Team (Late st Contact Info) Description 10/21/2025 8:00 AM EST Office Visit [facility] ADULT DENTAL [address] [place] [address] Carl, En[place] [address] [place] [address] documented as of this encounter Visit Diagnoses Not on filedocumented in this encounter Additional Health Concerns Assessment Noted Time PHQ-9 Depression Total Score: 1 01/29/20 25 2:27 PM EDT documented as of this encounter Care Teams School Cafeteria Cook Head Relationship Specialty Start Date End Date Maryana Winkler MD [address] [place] [address] PCP - General Family Medicine 11/12/18 documented as of this encounter
--- OUTSIDE RECORDS SUMMARY | 2025-08-13 14:57 | XMS_ITS | Encounter Summary ---
Author Organization [employer] Address [address] [place] [address] 7 [place] [address] Care Team Providers Care Hostess Name Role Phone Maryana Winkler MD Primary Care Provider [phone] Encounter Details Date Type Department Care Team (Latest Contact Info) Description 03/16/2021 Abstract [facility] CONVERSIONS Dental, Provider, DDS Social [...] Description 10/21/2025 8:00 AM EST Office Visit [facility] ADULT DENTAL [address] [place] [address] Carl [place] [address] [place] [address] documented as of this encounter Visit Diagnoses Not on filedocumented in this encounter Care Teams Hostess Relationship Specialty Start Date End Date Maryana Winkler MD [address] [place] [address] PCP - General Family Medicine 11/12/18 documented as of this encounter
--- OUTSIDE RECORDS SUMMARY | 2025-08-13 14:57 | XMS_ITS | Encounter Summary ---
Author Organization [employer] Address 75 [facility] 7t [place] [address] Care Team Providers Care Supervisor Gelatin Plant Name Role Phone Maryana Winkler MD Primary Care Provider [phone] Reason for Visit * Reason Onset Date Comments Appointment Request 01/19/2025 Encounter Details Date Type Department Care Team ([facility] st Contact Info) Description 01/19/2025 Telephone [facility] MEDICINE [address] [place], [place] [phone] Maryana Winkler MD [address] [place], [place] [phone] Appointment Request Social History Tobacco Use Types [...] appt with PCP. Reports was admitted at [facility] 01/10-01/15 for anaphylactic shock after consuming suzie [...] 10/21/2025 8:00 AM EST Office Visit [facility] ADULT DENTAL [address] [place] [address] Carl, En[place] [address] [place] [address] documented as of this encounter Visit Diagnoses Not on filedocumented in this encounter Additional Health Concerns Assessment Noted Time PHQ-9 Depression Total Score: 13 024 11:34 AM EST documented as of this encounter Care Teams Supervisor Gelatin Plant Relationship Specialty Start Date End Date Maryana Winkler MD [address] [place] [address] PCP - General Family Medicine 11/12/18 documented as of this encounter
--- OUTSIDE RECORDS SUMMARY | 2025-08-13 14:57 | XMS_ITS | Encounter Summary ---
Author Organization [employer] Address [address] [facility] 7t [place] [address] Care Team Providers Care Mechanical Estimator Name Role Phone Maryana Winkler MD Primary Care Provider [phone] Encounter Details Date Type Department Care Team ([facility] st Contact Info) Description 08/07/2025 Refill [facility] MEDICINE [address] [place], [place] [phone] Maryana Winkler MD [address] [place] [address] Social History Tobacco Use Types Packs/Day Years [...] 8:00 AM EST Office Visit [facility] ADULT DENTAL [address] [place] [address] Carl, En[place] [address] [place] [address] documented as of this encounter Visit Diagnoses Not on filedocumented in this encounter Additional Health Concerns Assessment Noted Time PHQ-9 Depression Total Score: 1 01/29/20 25 2:27 PM EDT documented as of this encounter Care Teams Mechanical Estimator Relationship Specialty Start Date End Date Maryana Winkler MD [address] [place] [address] PCP - General Family Medicine 11/12/18 documented as of this encounter
--- OUTSIDE RECORDS SUMMARY | 2025-08-13 14:58 | XMS_ITS | Encounter Summary ---
Author Organization [employer] Address 75 [facility] 7t [place] [address] Care Team Providers Care Unit Trust Manager Name Role Phone Maryana Winkler MD Primary Care Provider [phone] Encounter Details Date Type Department Care Team ([facility] st Contact Info) Description 04/28/2025 Orders Only [facility] CHC MED & PEDS [address] [place], [place] [phone] ProviderCristopher MD Social History Tobacco Use Types [...] Description 10/21/2025 8:00 AM EST Office Visit [facility] ADULT DENTAL [address] [place] [address] Carl, En[place] [address] [place] [address] documented as of this encounter Procedures Procedure Name Priority Date/Time Associated Diagnosis Comments XR CHEST 2 VIEWS Routine 05/19/2025 8:30 AM EDT HM MAMMOGRAPHY Routine 04/27/2025 8:52 AM EDT documented in this encounter Results * XR Chest 2 Views (05/19/2025 8:30 AM EDT) Anatomical Region Laterality Modality Chest Radiographic Jalyn ging 05/19/2025 8:30 AM EDT Narrative 05/19/2025 8:48 AM EDT [address] [address] XRay Report Signed Patient: Tiffany Vergara MR#: [id number] 91 : 1965 Acct:[id number] Age/Sex: 60 / F ADM Date: 05/19/25 Loc: [facility] Attending Dr: Leonardo Apple PA-C Ordering Physician: Leonardo Apple PA-C Date of Service: 05/19/25 Procedure(s): XR chest 2V Accession Number(s): [id number] cc: Leonardo Apple PA-C; Maryana Winkler MD [...] OV> 05/19/2545 DD/ 9 TD/TT: 05/19/25 0839 Clay Carman: Procedure Note Donotuseinterpreter, Image - 05/19/2025 [place] [address] XRay Report Signed Patient: Tiffany Vergara MMR#: [id number] 91 : 1965Acct:[id number] Age/Sex: 60 / FADM Date: 05/19/25 Loc: [facility] Attending Dr: Leonardo Apple PA-C Ordering Physician: Leonardo Apple PA-C Date of Service: 05/19/25 Procedure(s): XR chest 2V Accession Number(s): [id number] cc: Leonardo Apple PA-C; Maryana Winkler MD [...] 05/19/25 0845 DD/ 0830 TD/TT: 05/19/25 0839 Clay Carman: [facility] External Provider IMG XR PROCEDURES Edited Result - Final * Hm Mammography (04/27/2025 8:52 AM EDT) Anatomical Region Laterality Modality Other Historical Provider HEALTH MAINTENANCE Final Result documented in this encounter Visit Diagnoses Not on filedocumented in this encounter Additional Health Concerns Assessment Noted Time PHQ-9 Depression Total Score: 1 01/29/20 25 2:27 PM EDT documented as of this encounter Care Teams Unit Trust Manager Relationship Specialty Start Date End Date Maryana Winkler MD [address] [place] [address] PCP - General Family Medicine 11/12/18 documented as of this encounter
--- OUTSIDE RECORDS SUMMARY | 2025-08-13 14:58 | XMS_ITS | Encounter Summary ---
Author Organization [employer] Address [address] [facility] 7t [place] [address] Care Team Providers Care Agricultural Produce Commission Agent Name Role Phone Maryana Winkler MD Primary Care Provider [phone] Reason for Visit * Reason Comments Med Refill Encounter Details Date Type Department Care Team ([facility] st Contact Info) Description 08/02/2024 Refill [facility] MEDICINE [address] [place], [place] [phone] Maryana Winkler MD [address] [place], [place] [phone] Social History Tobacco Use Types Packs/Day Years [...] Description 10/21/2025 8:00 AM EST Office Visit [facility] ADULT DENTAL [address] [place] [address] CarlWernerEnid [address] [place] [address] documented as of this encounter Visit Diagnoses Not on filedocumented in this encounter Additional Health Concerns Assessment Noted Time PHQ-9 Depression Total Score: 13 024 11:34 AM EST documented as of this encounter Care Teams Agricultural Produce Commission Agent Relationship Specialty Start Date End Date Maryana Winkler MD [address] [place] [address] PCP - General Family Medicine 11/12/18 documented as of this encounter
--- OUTSIDE RECORDS SUMMARY | 2025-08-13 14:58 | XMS_ITS | Encounter Summary ---
Author Organization [employer] Address [address] [place] [address] 7t [place] [address] Care Team Providers Care Special Education Educational Assistant Name Role Phone Maryana Winkler MD Primary Care Provider [phone] Encounter Details Date Type Department Care Team (Late st Contact Info) Description 07/17/2023 Abstract [facility] MEDICINE [address] [place], [place] [phone] Maryana Winkler MD [address] [place], [place] [phone] Social History Tobacco Use Types Packs/Day Years [...] 10/21/2025 8:00 AM EST Office Visit [facility] ADULT DENTAL [address] [place], [place] [phone] En[place] Henry [address] [place] [address] documented as of this encounter Visit Diagnoses Not on filedocumented in this encounter Additional Health Concerns Assessment Noted Time PHQ-9 Depression Total Score: 4 12/14/19 23 9:31 AM EST documented as of this encounter Care Teams Special Education Educational Assistant Relationship Specialty Start Date End Date Maryana Winkler MD [address] [place] [address] PCP - General Family Medicine 11/12/18 documented as of this encounter
--- OUTSIDE RECORDS SUMMARY | 2025-08-13 14:58 | XMS_ITS | Encounter Summary ---
Author Organization [employer] Address [address] [place] [address] 7t [place] [address] Care Team Providers Care Hook And Eye Machine Operator Name Role Phone Maryana Winkler MD Primary Care Provider [phone] Encounter Details Date Type Department Care Team (Late st Contact Info) Description 05/23/2023 Orders Only [facility] MEDICINE [address] [place], [place] [phone] Provider, MD Cristopher Social History Tobacco Use [...] Description 10/21/2025 8:00 AM EST Office Visit [facility] ADULT DENTAL [address] [place], [place] [phone] Werner Henryaris [address] [place] [address] documented as of this encounter Procedures Procedure [...] EST) Vitamin D, 25-OH, D2 6 ng/mL [facility] Comment:This test was develo ped and its analytical performancecharacteristics have been determined by [employer] [place], [place]. It hasnot been cleared or approved by the U.S. Food and DrugAdministration. This assay has been validated pursuantto the CLIA regulations and is used for clinicalpurposes.THIS TEST WAS PERFORMED AT:[id number] [place] [id number] W. MASON,MD,PHD Vitamin D, 25-OH, D3 20 ng/mL [facility] Comment:This test was develo ped and its analytical performancecharacteristics have been determined by [employer] [place] [place]. It hasnot been cleared or approved by the U.S. Food and DrugAdministration. This assay has been validated pursuantto the CLIA regulations and is used for clinicalpurposes. Vitamin D, 25-OH, Total 26(A) 30 - 100 ng/mL [facility] Comment:Vitamin D, 25-Hydrox y reports [...] = 30 ng/mL.For additional information, please refer [email or web address]/[email or web address](This link is being provided for informational/educational purposes only.) 01/16/2024 8:44 AM EST 01/16/2024 11:23 AM EST us Generic External Data Provider LAB BLOOD ORDERAB LES Final Result Performing Organization Address City/[facility]/ZIP Co de Phone Number [facility] [address] [place] [phone] * Urine electrolytes (12/20/2023 10:49 PM EST) Chloride Urine Random <20.0 mmol/L [facility] Sodium Urine Random 44.0 mmol/L [facility] Potassium Urine Random 7.7 mmol/L [facility] 12/20/2023 10:4 9 PM EST 12/20/2023 10:53 PM EST us Generic External Data Provider LAB URINE ORDERAB LES Final Result Performing Organization Address City/[facility]/ZIP Co de Phone Number [facility] [address] [place] [phone] * Urinalysis w/reflex microscopic (12/20/2023 10:49 PM EST) Color Urine Yellow [facility] Appearance Urine Clear [facility] PH 8.0 5.0 - 9.0 [facility] Glucose Urine UA Negative Negative mg/dL [facility] Urine Blood Negative Negative [facility] Specific [place] - Urine 1.010 1.005 - 1.025 [facility] Urine Protein Negative Neg-Trace mg/dL [facility] Urine Ketones Negative Negative mg/dL [facility] Nitrite Urine Negative Negative [facility] Leukocyte Esterase Urine Negative Negative [facility] 12/20/2023 10:4 9 PM EST 12/20/2023 10:53 PM EST Narrative [facility] - 12/20/2023 10:56 PM EST [id number], [employer] Generic External Data Provider LAB URINE ORDERAB LES Final Result Performing Organization Address [facility]/ZIP Co de Phone Number [facility] [address] [place] [phone] * Electrolyte Panel (12/20/2023 10:40 PM EST) Sodium 139 135 - 145 mmol/L [facility] Potassium 3.4 3.3 - 5.1 mmol/L [facility] Chloride 103 96 - 108 mmol/L [facility] Carbon Dioxide 27 22 - 29 mmol/L [facility] Anion Gap 12 12 - 20 [facility] 12/20/2023 10:4 0 PM EST 12/20/2023 10:43 PM EST us Generic External Data Provider LAB BLOOD ORDERAB LES Final Result Performing Organization Address [facility]/ZIP Co de Phone Number [facility] [address] [place] [phone] * Magnesium (12/20/2023 4:46 PM EST) Magnesium 2.1 1.6 - 2.6 mg/dL [facility] 12/20/2023 4:46 PM EST 12/20/2023 4:49 PM EST us Generic External Data Provider LAB BLOOD ORDERAB LES Final Result [facility] [address] [place] [phone] * (ABNORMAL) Comprehensive Metabolic Panel (12/20/2023 4:46 PM EST) Sodium 136 135 - 145 mmol/L [facility] Potassium 2.6(LL) 3.3 - 5.1 mmol/L [facility] Comment:Critical value for t est(s): POTS Results called to and readback by: JAYLAN Person calling: JATINDER Date: 12/20/23 Time:1707 Chloride 98 96 - 108 mmol/L [facility] Carbon Dioxide 28 22 - 29 mmol/L [facility] Anion Gap 13 12 - 20 [facility] Urea Nitrogen (BUN) 10 9 - 16 mg/dL [facility] Creatinine, Serum 0.84 0.5 - 1.4 mg/dL [facility] Creatinine Clr Calc Pharmacy 49.1 [facility] Comment:Provided height and weight: 149.86 cm,49.5 kg.eGFR (calculated from the MDRD study equation) and eCrCl(calculated from the Cockcroft-Gault equation) are based ondifferent parameters and may not yield comparable results.If eCrCl result is absurd, please check patient'sheight/weight. Estimated Glomerular Filt Rate >60 [facility] Comment:NOTE: For -Am erican individuals, multiply the result by 1.210.Chronic Kidney Disease: Estimated GFR < 60 mL/min/1.77m6Bdgggp Kidney Disease: Estimated GFR < 15 mL/min/1.73m2 Glucose 155(H) 60 - 115 mg/dL [facility] Calcium 9.2 8.4 - 10.2 mg/dL [facility] Bilirubin, Total 0.4 0.0 - 1.0 mg/dL [facility] Aspartate Amino Transferase 24 5 - 31 U/L [facility] Alanine Aminotransferase 14 0 - 31 U/L [facility] Total Protein 7.3 6.5 - 8.0 g/dL [facility] Albumin Level 4.1 3.5 - 5.0 g/dL [facility] Alkaline Phosphatase 72 39 - 117 U/L [facility] 12/20/2023 4:46 PM EST 12/20/2023 4:49 PM EST us Generic External Data Provider LAB BLOOD ORDERAB LES Final Result [facility] [address] [place] [phone] * (ABNORMAL) CBC auto differential (12/20/2023 4:46 PM EST) White Blood Count 6.9 4.8 - 10.8 X10*3/uL [facility] Red Blood Count 4.79 4.20 - 5.50 X10*6/uL [facility] Hemoglobin 14.7 12.0 - 16.0 g/dl [facility] Hematocrit 41.3 37.0 - 47.0 % [facility] Mean Corpuscular Volume 86.2 80.0 - 98.0 fL [facility] Mean Corpuscular Hemoglobin 30.7 27.0 - 33.0 pg [facility] Mean Corpuscular HGB Conc 35.6(H) 31.0 - 35.0 g/dl [facility] Red Cell Distribution Width 12.7 11.0 - 16.0 % [facility] Platelet Count 158(L) 160 - 400 X10*3/uL [facility] Mean Platelet Volume 9.4 9.4 - 12.3 fL [facility] Neutrophils Percent Auto 57.1 45 - 73 % [facility] Imm Gran Pct Auto 0.1 0.0 - 0.4 % [facility] Lymphocytes Percent Auto 33.5 20 - 40 % [facility] Monocytes Percent Auto 6.8 2 - 11 % [facility] Eosinophils Percent Auto 1.9 0 - 4 % [facility] Basophils Percent Auto 0.6 0 - 2 % [facility] NRBC Pct Auto 0.0 0.0 - 0.2 /100WBC [facility] Neutrophils Absolute Auto 4.0 2.0 - 8.3 x10*3/uL [facility] Imm Gran Abs Auto 0.01 0.00 - 0.03 X10*3/uL [facility] Lymphocytes Absolute Auto 2.3 1.2 - 4.9 X10*3/uL [facility] Monocytes Absolute Auto 0.5 0.1 - 1.2 X10*3/uL [facility] Eosinophils Absolute Auto 0.1 0.0 - 0.4 X10*3/uL [facility] Basophils Absolute Auto 0.0 0.0 - 0.2 X10*3/uL [facility] NRBC Abs Auto 0.000 0.0 - 0.012 X10*3/uL [facility] 12/20/2023 4:46 PM EST 12/20/2023 4:49 PM EST us Generic External Data Provider LAB BLOOD ORDERAB LES Final Result Performing Organization Address City/State/[facility] Co de Phone Number [facility] [address] [place] [phone] * US Abdomen Complete (05/23/2023 9:54 AM EDT) Anatomical Region Laterality Modality Abdomen Ultrasound 05/23/2023 9:54 AM EDT Narrative 05/26/2023 12:12 PM EDT [address] [address] Ultrasound Report Signed Patient: Tiffany Vergara MR#: [id number] 91 : 1965 Acct:[id number] Age/Sex: 58 / F ADM Date: 05/23/23 Loc: HO.US Attending Dr: Maryana Winkler MD Ordering Physician: Maryana Winkler MD Date of Service: 05/23/23 Procedure(s): US abdomen complete Accession Number(s): [id number] cc: Maryana Winkler MD EXAMINATION: US ABDOMEN [...] in OV> 05/26/23 1209 DD/ 0954 TD/TT: Novelty Dipper: SS Procedure Note Donotuseinterpreter, Image - 05/26/2023 [place] [address] Ultrasound Report Signed Patient: Tiffnay Vergara MMR#: [id number] 91 : 1965Acct:[id number] Age/Sex: 58 / FADM Date: 05/23/23 Loc: HO.US Attending Dr: Maryana Winkler MD Ordering Physician: Maryana Winkler MD Date of Service: 05/23/23 Procedure(s): US abdomen complete Accession Number(s): [id number] cc: Maryana Winkler MD EXAMINATION: US ABDOMEN [...] in OV> 05/26/23 1209 DD/ 0954 TD/TT: Novelty Dipper: [facility] External Provider IMG US PROCEDURES Edited Result - Final * Hm Mammography (04/03/2023) Anatomical Region Laterality Modality Other Historical Provider HEALTH MAINTENANCE Final Result documented in this encounter Visit Diagnoses Not on filedocumented in this encounter Additional Health Concerns Assessment Noted Time PHQ-9 Depression Total Score: 4 12/14/19 23 9:31 AM EST documented as of this encounter Care Teams Hook And Eye Machine Operator Relationship Specialty Start Date End Date Maryana Winkler MD [address] [place] [phone] PCP - General Family Medicine 11/12/18 documented as of this encounter
--- OUTSIDE RECORDS SUMMARY | 2025-08-13 14:58 | XMS_ITS | Encounter Summary ---
Author Organization [employer] Address 75 [facility] 7t [place] [address] Care Team Providers Care Computer Numerical Control Operator Name Role Phone Maryana Winkler MD Primary Care Provider [phone] Encounter Details Date Type Department Care Team ([facility] st Contact Info) Description 11/18/2024 Orders Only [facility] MEDICINE [address] [place] [address] ProviderCristopher MD Social History Tobacco Use Types [...] the past 12 months, has t he [employer], gas, oil or water company threatened to [...] Description 10/21/2025 8:00 AM EST Office Visit [facility] ADULT DENTAL [address] [place] [address] CarlWernerEnid [address] [place] [address] documented as of this encounter Procedures Procedure [...] documented as of this encounter Care Teams Computer Numerical Control Operator Relationship Specialty Start Date End Date Maryana Winkler MD [address] [place] [address] PCP - General Family Medicine 11/12/18 documented as of this encounter
--- OUTSIDE RECORDS SUMMARY | 2025-08-13 14:58 | XMS_ITS | Encounter Summary ---
Author Organization [employer] Address [address] [place] [address] [address] [place] [address] Care Team Providers Care World Language Teacher Name Role Phone Maryana Winkler MD Primary Care Provider [phone] Encounter Details Date Type Department Care Team (Latest Contact Info) Description 03/27/2019 Abstract [facility] CONVERSIONS Dental, [...] Description 10/21/2025 8:00 AM EST Office Visit [facility] ADULT DENTAL [address] [place] [address] [place], [place] [address] [place] [address] documented as of this encounter Visit Diagnoses Not on filedocumented in this encounter Care Teams World Language Teacher Relationship Specialty Start Date End Date Maryana Winkler MD [address] [place] [address] PCP - General Family Medicine 11/12/18 documented as of this encounter
--- OUTSIDE RECORDS SUMMARY | 2025-08-13 14:58 | XMS_ITS | Clinical Summary ---
Author Organization [employer] Address [address] [place] [address] 7[address] [place] [address] Care Team Providers Care Cable Coverer Name Role Phone Maryana Winkler MD Primary Care Provider [phone] Allergies Active Allergy Reactions Criticality Noted Date Comments [place] Oil Anaphylaxis High 12/07/2023 Suzie Oil (Salvia Hispanica) Anaphylaxis High Allergy to Suzie seeds (not an option [...] 4 (four) hours. 18 g 023 Active Mometasone Furoate (Asmanex HFA) 200 MCG/ACT aerosol Take 1 puff twice daily 13 g 11 024 Active loratadine (Claritin) 10 MG tablet TAKE 1 TABLET BY MOUTH EVERY MORNING 90 tablet 3 024 Active tacrolimus (Protopic) 0.1 % ointment Apply topically if needed in the morning and at bedtime (rash). 60 g 1 024 Active magnesium oxide (Mag-Ox) 400 (240 Mg) MG tablet Take 1 tablet by mouth in the morning. 024 Active atorvastatin (Lipitor) 40 MG tabletIndicatio ns:Dyslipidemia TAKE 1 TABLET BY MOUTH EVERY EVENING 90 tablet 3 025 Active Diclofenac Sodium 1 % gelIndications: Acute right ankle pain APPLY 2 GRAMS TOPICALLY TO AFFECTED AREA(S) TWICE DAILY NEEDED 350 g 3 025 Active midodrine (Proamatine) 10 MG tablet Take 1 tablet by mouth 3 times daily. 025 Active prazosin (Minipress) 1 MG capsule Take 1 capsule by mouth at bedtime. May take 1 additional capsule as needed for nightmares 025 Active Blood Pressure Monitor [facility] [place] Check BP daily 1 each 025 Active montelukast (Singulair) 10 MG tablet TAKE 1 TABLET BY MOUTH EVERY EVENING 90 tablet 3 025 Active D3 Super Strength 50 MCG (1999 UT) capsule TAKE 1 CAPSULE BY MOUTH EVERY MORNING 30 capsule 3 025 Active EPINEPHrine (Epipen) 0.3 MG/0.3ML injection syringe INJECT INTRAMUSCULARLY DIRECTED ON PACKAGE AND GO TO EMERGENCY ROOM 2 each 1 025 Active gabapentin (Neurontin) 100 MG capsule TAKE 2 CAPSULES BY MOUTH THREE TIMES DAILY IN THE MORNING, EVENING AND BEDTIME 180 capsule 025 Active topiramate 50 MG tablet TAKE 1 TABLET BY MOUTH TWICE DAILY IN THE MORNING AND AT BEDTIME 60 tablet 1 Active gabapentin (Neurontin) 100 MG capsule Take 2 capsules (200 mg) by mouth 3 times daily. 180 capsule 025 Active gabapentin (Neurontin) 100 MG capsule Take 2 capsules (200 mg) by mouth 3 times daily. 180 capsule 025 2024 Discontinued(R eorder (will not trigger notification to Pharmacy)) Active Problems Problem Noted Date Diagnosed Date Idiopathic urticaria 05/13/2025 Assessment & Plan (05/25/2025 6:13 AM EDT): Following with engagement specialist Hypotension 02/13/2025 Assessment & Plan (02/13/2025 [...] EDT): - carry epi-pen - referred to engagement specialist Chronic headache 02/09/2025 Assessment & Plan [...] reduction - continue following with recommendation from [facility] provider Transaminitis 02/09/2025 Overview (07/14/2025): - Liver US / elastography on 07/14/25. Shear wave median stiffness 1.6 m/s. Assessment & Plan (05/13/2025 10:12 AM EDT): - In a setting of Hep B - Last liver test: 03/11/25 - Last US / elastography - will update - FIB4 index 1.58 - GI: [facility] [place] - continue working on lifestyle modifications - continue surveillance study Food allergy 01/28/2025 Overview (01/28/2025): Suzie and poppy seeds, LAZARO allergy Assessment & Plan (05/25/2025 6:10 AM EDT): - Evaluated by engagement specialist at [facility], most recent visit 04/28/2025. - [...] left eyelid and likely bl allergic conjunctivitis -corporate strategy analyst evaluation referred today -has apt w dermatology [...] on 01/25/[address] Smitha Greene at [facility] [place] -continue following with recommendations by Orthopedist -no longer in cast -Continue occupational therapy Assessment & Plan (02/08/2023 1:33 PM EDT): S/p surgery on 01/25/23 -continue following with recommendations by Orthopedist -currently in cast -pt would benefit from [facility] services Closed displaced fracture of proximal phalanx [...] Plan (12/24/2023 5:49 AM EST): Following with [facility] Clinical Care Coordinator, last seen in Jun 2023 -Patient was Prescribed Baclofen as visit - continue baclofen - continue lidoderm patches - continue Diclofenac gel - continue acetaminophen prn - judiciously use Ibuprofen/Motrin/Naproxen - continue Gabapentin - recommended to contact Clinical Care Coordinator regarding MRI Scheduling - Clinical Care Coordinator is planning to place a Peripheral Nerve Stimulator after MRI Scan Assessment & Plan (04/30/2023 7:37 PM EDT): Following with [facility] [place] Clinical Care Coordinator, last seen on 04/02/23 -Patient was Prescribed Baclofen as visit - continue baclofen - continue lidoderm patches - continue Diclofenac gel - continue acetaminophen prn - judiciously use Ibuprofen/Motrin/Naproxen - continue Gabapentin - recommended to contact Clinical Care Coordinator regarding MRI Scheduling - Clinical Care Coordinator is planning to place a Peripheral Nerve Stimulator after MRI Scan Irritable bowel syndrome 08/17/2015 Assessment & Plan (11/11/2024 12:37 PM EST): -following with [facility] [place] GI, last seen in Oct 2023 -prescribed simethicone, metoclopramide, and Linzess -continue current treatment plan per GI Assessment & Plan (12/24/2023 5:46 AM EST): -following with [facility] [place] [place] GI, last seen in Oct 2023 -prescribed simethicone, metoclopramide, and Linzess -continue current treatment plan per GI Assessment & Plan (02/18/2023 7:30 AM EDT): -following with [facility] [place] GI, last seen in [...] Assessment & Plan (11/21/2024 12:25 PM EST): -Pasting Machine Operator: [facility] [place], last visit in 01/22/24 -referred to orthopedist and house painting instructor -previously taking hydroxychloroquine for possible inflammatory arthritis (Hx LAZARO and RF positive), and it was discontinued by new jewel staker -Patient was interested in CBD treatment previously -Pt has tried physical therapies several times, and currently practicing it at home -patient is attending acupuncture. Encouraged to continue -Encouraged to try Taichi and Yoga as recommended -Decrease gabapentin from 600 to 400 mg tid Assessment & Plan (07/26/2024 6:57 AM EDT): -Pasting Machine Operator: [facility] [place], last visit in 01/22/24 -referred to orthopedist and house painting instructor -previously taking hydroxychloroquine for possible inflammatory arthritis (Hx LAZARO and RF positive), and it was discontinued by new jewel staker -Patient was interested in CBD treatment previously -Pt has tried physical therapies several times, and currently practicing it at home -patient is attending acupuncture. Encouraged to continue -Encouraged to try Taichi and Yoga as recommended Assessment & Plan (03/18/2024 9:37 AM EDT): -Pasting Machine Operator: [facility] [place], last visit in 01/22/24 -referred to orthopedist and house painting instructor -previously taking hydroxychloroquine for possible inflammatory arthritis (Hx LAZARO and RF positive), and it was discontinued by new jewel staker -Patient was interested in CBD treatment previously -Pt has tried physical therapies several times -patient is attending acupuncture. -Encouraged to try Taichi and Yoga as recommended -Cont attending Acupuncture, since doing well. Assessment & Plan (12/24/2023 5:50 AM EST): -Pasting Machine Operator: [facility] [place], last visit in 01/18/23 -referred to orthopedist and house painting instructor -previously taking hydroxychloroquine for possible inflammatory arthritis (Hx LAZARO and RF positive), and it was discontinued by new jewel staker -Patient was interested in CBD treatment previously -Pt has tried physical therapies several times -patient is attending acupuncture. -Encouraged to try Taichi and Yoga as recommended -Cont attending Acupuncture, since doing well. Assessment & Plan (04/23/2023 11:54 AM EDT): -Pasting Machine Operator: [facility] [place], last visit in 01/18/23 -Discontinued Plaquenil -referred to orthopedist and house painting instructor -still taking hydroxychloroquine for possible inflammatory arthritis (Hx LAZARO and RF positive) -Patient was interested in CBD treatment previously -Pt has tried physical therapies several times -patient is attending acupuncture. -Encouraged to try Taichi and Yoga as recommended -Cont attending Acupuncture, since doing well. Assessment & Plan (02/08/2023 1:19 PM EDT): -Pasting Machine Operator: [facility] [place], last visit in 01/18/23 -Discontinued Plaquenil -referred to orthopedist and house painting instructor -still taking hydroxychloroquine for possible inflammatory arthritis (Hx LAZARO and RF positive) -Patient was interested in CBD treatment previously -Pt has tried physical therapies several times -patient is attending acupuncture. -Encouraged to try Taichi and Yoga as recommended -Cont attending Acupuncture, since doing well. Chronic type B viral hepatitis (CMS/HCC) 014 Assessment & Plan (05/13/2025 7:30 PM EDT): [...] 6:13 AM EDT): - Seen by her marble installer supervisor in Aug 2015. - well-controlled recently - [...] 12:36 PM EST): - Seen by her marble installer supervisor in Aug 2015. - well-controlled recently - change Flovent to Asmanex - continue montelukast - continue albuterol HFA and DuoNeb prn as rescue. - consider another pulmonary fxn test or sleep study if pt continue to has dyspnea - follow up in 3-4 mo Assessment & Plan (07/22/2024 9:56 AM EDT): - Seen by her marble installer supervisor in Aug 2015. - well-controlled recently - change Flovent to Asmanex - continue montelukast - continue albuterol HFA and DuoNeb prn as rescue. - consider another pulmonary fxn test or sleep study if pt continue to has dyspnea - follow up in 3-4 mo Assessment & Plan (03/18/2024 9:25 AM EDT): - Seen by her marble installer supervisor in Aug 2015. - well-controlled recently - change Flovent to Asmanex - continue montelukast - continue albuterol HFA and DuoNeb prn as rescue. - consider another pulmonary fxn test or sleep study if pt continue to has dyspnea - follow up in 3-4 mo Assessment & Plan (12/24/2023 5:37 AM EST): - Seen by her marble installer supervisor in Aug 2015. - well-controlled recently - change Flovent to Asmanex - continue montelukast - continue albuterol HFA and DuoNeb prn as rescue. - consider another pulmonary fxn test or sleep study if pt continue to has dyspnea - follow up in 3-4 mo Assessment & Plan (04/30/2023 7:31 PM EDT): - Seen by her marble installer supervisor in Aug 2015. - well-controlled recently - continue Flovent to 2 puff twice daily and Singulair as maintenance. - continue albuterol HFA and DuoNeb prn as rescue. - consider another pulmonary fxn test or sleep study if pt continue to has dyspnea - follow up in 3-4 mo Assessment & Plan (02/08/2023 1:35 PM EDT): Seen by her marble installer supervisor in Aug 2015. increase Flovent to 2 puff twice daily and Singulair as maintenance. Continue albuterol HFA and DuoNeb prn as rescue. -consider another pulmonary fxn test or sleep study if pt continue to has dyspnea Allergic rhinitis 02/19/2014 Assessment & Plan (05/25/2025 6:10 AM EDT): - continue montelukast and cetirizine - Patient was started following with engagement specialist due to multiple hypersensitivity reactions Assessment & Plan (12/24/2023 5:54 AM EST): - continue montelukast and antihistamine Constipation 08/15/2013 Assessment & Plan (05/13/2025 7:31 PM EDT): Following with [facility] [place] GI Fiber rich diet Continue Dulcolax and Linzess Assessment & Plan (11/11/2024 12:36 PM EST): Following with [facility] [place] GI Fiber rich diet Continue Dulcolax and Linzess Assessment & Plan (12/24/2023 5:45 AM EST): Following with [facility] [place] GI Fiber rich diet [...] Plan (05/13/2025 10:11 AM EDT): -Following with [facility] [place] GI, last seen in Oct 2023 -Continue Dexilant as prescribed by GI Assessment & Plan (11/11/2024 12:37 PM EST): -Following with [facility] [place] GI, last seen in Oct 2023 -Continue Dexilant as prescribed by GI Assessment & Plan (12/24/2023 5:46 AM EST): -Following with [facility] [place] GI, last seen in Oct 2023 -Continue Dexilant as prescribed by GI Assessment & Plan (02/18/2023 7:29 AM EDT): -Following with [facility] GI, last seen in [...] Encounters Date Type Department Care Team Description 08/12/2025 10:15 AM EDT Office Visit [address] [address] Maryana Winkler MD Encounter for immunization 08/12/2025 Travel 08/11/2025 9:00 AM EDT Office Visit [address] [address] Elzbieta Wells MD Fibromyalgia (Primary Dx); Generalized anxiety disorder 08/11/[address] [address] Maryana Winkler MD chart prep 08/11/2025 Travel 08/07/[address] [address] Maryana Winkler MD 08/03/2025 9:00 AM EDT Office Visit [address] [address] Elzbieta Wells MD Fibromyalgia (Primary Dx); Generalized anxiety disorder 08/03/2025 Travel 07/30/2025 9:00 AM EDT Office Visit [address] [address] Elzbieta Wells MD Fibromyalgia (Primary Dx); Generalized anxiety disorder 07/30/2025 Travel 07/27/2025 9:00 AM EDT Office Visit [address] [address] Elzbieta Wells MD Fibromyalgia (Primary Dx); Generalized anxiety disorder 07/27/2025 Travel 07/23/2025 9:00 AM EDT Office Visit [address] [address] Elzbieta Wells MD Fibromyalgia (Primary Dx); Generalized anxiety disorder 07/23/2025 Travel 07/20/2025 9:00 AM EDT Office Visit [address] [address] Elzbieta Wells MD Fibromyalgia (Primary Dx); Generalized anxiety disorder 07/20/2025 Travel 07/16/2025 9:00 AM EDT Office Visit [address] [address] Elzbieta Wells MD Fibromyalgia (Primary Dx); Generalized anxiety disorder 07/16/2025 Travel 06/25/2025 9:00 AM EDT Office Visit [address] [address] Elzbieta Wells MD Fibromyalgia (Primary Dx); Generalized anxiety disorder 06/25/2025 Travel 06/22/2025 9:00 AM EDT Office Visit [address] [address] Elzbieta Wells MD Fibromyalgia (Primary Dx); Generalized anxiety disorder 06/22/2025 Travel 06/15/2025 9:00 AM EDT Office Visit [address] [address] Elzbieta Wells MD Fibromyalgia (Primary Dx); Generalized anxiety disorder 06/15/2025 Travel 06/11/2025 9:00 AM EDT Office Visit [address] [address] Elzbieta Wells MD Fibromyalgia (Primary Dx); Generalized anxiety disorder 06/11/2025 Travel 06/10/2025 Refill [facility] [address] [place] [address] Maryana Winkler MD 06/08/2025 9:00 AM EDT Office Visit [address] [address] Elzbieta Wells MD Fibromyalgia (Primary Dx); Generalized anxiety disorder 06/08/2025 Travel 06/04/2025 9:30 AM EDT Office Visit [facility] [address] [place] [address] Elzbieta Wells MD Fibromyalgia (Primary Dx); Generalized anxiety disorder 06/04/2025 Travel 06/01/2025 9:00 AM EDT Office Visit [facility] [address] [place] [id number] Elzbieta Wells MD Fibromyalgia (Primary Dx); Generalized anxiety disorder 06/01/2025 Travel 05/28/2025 9:00 AM EDT Office Visit [facility] [address] [place] [phone] Elzbieta Wells MD Fibromyalgia (Primary Dx); Generalized anxiety disorder 05/28/2025 Travel 05/25/2025 9:00 AM EDT Office Visit [facility] [address] [place] [phone] Elzbieta Wells MD Fibromyalgia (Primary Dx); Generalized anxiety disorder 05/25/2025 Travel 05/21/2025 9:00 AM EDT Office Visit [facility] [address] [place] [phone] Elzbieta Wells MD Fibromyalgia (Primary Dx); Generalized anxiety disorder 05/21/2025 Travel 05/19/2025 Refill [facility] [address] [place] [address] Maryana Winkler MD 05/18/2025 9:15 AM EDT Office Visit [facility] [address] [place] [phone] Elzbieta Wells MD Fibromyalgia (Primary Dx); Generalized anxiety disorder 05/18/2025 Travel 05/18/2025 Refill [facility] [address] [place] [address] Maryana Winkler MD 05/13/2025 9:15 AM EDT Office Visit [facility] [address] [place] [address] Maryana Winkler MD Food allergy (Primary Dx); Allergic rhinitis, unspecified seasonality, unspecified trigger; Mild intermittent asthma without complication; Idiopathic urticaria; Chronic idiopathic constipation; Gastroesophageal reflux disease, unspecified whether esophagitis present; Transaminitis; Chronic type B viral hepatitis ([facility]/HCC) 05/13/2025 Travel from Last 3 Months Immunizations Immunization Administration Dates Next Due Hep A, Adult 04/02/2017,03/25/2014 Hep B, adult 09/29/2014,05/06/2014,03/25/2014 Influenza injectable quadriv alent preservative free 12/18/2023,10/20/2021 Influenza, seasonal, injecta ble, preservative free 08/12/2025,07/22/2024 Moderna Covid-19 Vaccine 6+ Bivalent 12/14/2022 Pfizer [...] Mass Index 24.36 08/12/2025 10:21 AM EDT Plan of Treatment Upcoming Encounters Date Type Department Care Team (Late st Contact Info) Description 10/21/2025 8:00 AM EST Office Visit [facility] ADULT DENTAL [address] [place] [address] Werner [facility]aris [address] [place] [address] Health Maintenance Due Date Last Done Comments CT Colonography 1965 FIT DNA/Cologuard 1965 FIT 1965 FOBT 1965 Sigmoidoscopy 1965 RSV Patients and Patients Aged 60 years or older (1 - Risk 60-74 years 1-dose series) 2024 Pap Smear 01/16/2025 01/16/2022 COVID-19 Vaccine ( season) 2025 12/18/2023, 12/14/2022, 02/21/2022, Additional history exists Dental Oral Exam 10/11/2025 04/09/2025, , 03/29/2023, Additional history exists Dental Prophylaxis 10/11/2025 04/09/2025, 0 07/15/2024, 12/07/2023, Additional history exists Diagnostic Breast Imaging 10/27/20252024, 10/27/2024, 04/29/2024, Additional history exists Mammogram 10/27/2025 04/27/2025, 10/12, 04/29/2024, Additional history exists Depression Screening 01/28/2026 01/28/2025, 01/29/20 25 SDOH Screening 01/28/2026 01/28/2025 Dental X-Ray: Bitewings 04/10/2026 04/09/20 25, 03/29/2023, 03/23/2022, Additional history exists Colonoscopy 2026 2016 Colorectal Cancer Screening 2026 Disability Screening 05/13/2026 05/13/2025 Alcohol/Substance Use Screening 08/12/2026 08/12/2025 Tobacco Screening 08/12/2026 08/12/2025 Cervical Cancer Screening 01/16/2027 HPV/Cotest 01/16/2027 01/16/2022 Dental X-Ray: Full Mouth 04/10/2028 025, 03/16/2021, 09/29/2016 DTaP/Tdap/Td Vaccines (3 - Td or Tdap) 06/13/2032 06/13/2022, 12/01/2011 Hepatitis B Vaccines Completed 09/29/2014, 05/06/2014, 03/25/2014 Hepatitis A Vaccines Completed 04/02/2017, 03/25/20 14 Zoster Vaccines Completed 05/18/2020, 11/24/2019 HIV Screening Completed 10/24/2021 Hepatitis C Screening Completed 10/24/2021 Pneumococcal Vaccine: 50+ Years Completed 02/08/2023, 02/19/2014 Influenza Vaccine Completed 08/12/2025, , 12/18/2023, Additional history exists HIB Vaccines Aged Out No longer eligi [...] Associated Diagnosis Comments AMB REFERRAL TO ALLERGY Urgent 07/29/2025 Anaphylaxis, subsequent encounter Food allergy US ABDOMEN COMPLETE WITH ELASTOGRAPHY Routine 07/14/2025 8:43 AM EDT Transaminitis XR CHEST 2 VIEWS Routine 05/19/2025 8:30 [...] Health Maintenance Results * Referral to Allergy (07/29/2025) us [facility] OUTPATIENT REFERRAL ORDERABLES F inal Result * US Abdomen Comp w elastography (07/14/2025 8:43 AM EDT) Anatomical Region Laterality Modality Abdomen Ultrasound 07/14/2025 8:43 AM EDT Narrative 07/14/2025 11:37 AM EDT [place] [id number] Ultrasound Report Signed Patient: Tiffany Vergara MR#: [id number] 91 : 1965 Acct:[id number] Age/Sex: 60 / F ADM Date: 07/14/25 Loc: . Attending Dr: Maryana Winkler MD Ordering Physician: Maryana Winkler MD Date of Service: 07/14/25 Procedure(s): US abdomen comp w elastography Accession Number(s): [id number] cc: Maryana Winkler MD Reason for Exam: transaminitis, Hep B EXAMINATION: US COMPLETE ABDOMEN WITH LIVER ELASTOGRAPHY CLINICAL INFORMATION: transaminitis, Hep B COMPARISON: CT on May 26, 2024 TECHNIQUE: Real-time imaging of the abdominal viscera. Noninvasive ultrasound liver fibrosis assessment is performed using [employer] ElastPQ point quantification shear wave elastography (pSWE) with a C5-2 MHz transducer. Multiple elastography samples are obtained. FINDINGS: PANCREAS: The visualized pancreatic head and body are normal in appearance. The remainder of the pancreas is obscured from visualization by the overlying bowel gas. ABDOMINAL AORTA: No aortic aneurysm is seen. INFERIOR VENA CAVA: Visualized portions are normal. LIVER: The liver demonstrates normal size, contour and echogenicity. No focal lesion or intrahepatic biliary duct dilatation. The right lobe measures 15 cm in length. The left lobe measures 10 cm in length. The main portal vein is patent with a normal direction of flow. Demonstrates a continuous venous waveform. Shear wave liver elastography median stiffness is 1.6 m/s (reference: normal median stiffness is 1.3 m/s or less). IQR/median stiffness to assess sampling precision is 0.1 (reference: good quality data set is IQR/median stiffness of 0.15 or less). GALLBLADDER: The gallbladder is physiologically distended without evidence of stones, sludge, polyps, wall thickening or pericholecystic fluid. COMMON BILE DUCT: Normal in caliber measuring 0.5 cm in diameter. RIGHT KIDNEY: There is pelviectasis. No renal calculi or focal parenchymal lesions. The kidney measures 9.6 cm in maximum dimension. LEFT KIDNEY: There is pelviectasis. No renal calculi or focal parenchymal lesions. The kidney measures 10.2 cm in maximum dimension. SPLEEN: Unremarkable. The spleen measures 7.6 cm in maximum dimension. FREE FLUID: None seen. US/US abdomen comp w elastography IMPRESSION: Unremarkable. Liver. Liver elastography: In the absence of other known clinical signs, measurements rule out compensated advanced chronic liver disease. If there are known clinical signs, further testing may be needed for confirmation. Bilateral pelviectasis, a stable and nonspecific finding. REFERENCE: Society of Radiologists in Ultrasound Liver Stiffness Thresholds (2020): LIVER STIFFNESS THRESHOLDS: *Liver Stiffness equal or less than 1.3 m/s: High probability of being normal. *Liver Stiffness less than 1.7 m/s: In the absence of other known clinical signs, rules out compensated advanced chronic liver disease. *Liver Stiffness 1.7-2.1 m/s: Suggestive of compensated advanced chronic liver disease but need further test for confirmation. *Liver Stiffness over 2.1 m/s: Rules in compensated advanced chronic liver disease. *Liver Stiffness over 2.4 m/s: Suggestive of clinically significant portal hypertension. QUALITY OF DATA SET: *IQR/Median value equal or less than 0.15 implies a quality data set. *IQR/Median value over 0.15 implies a poor quality data set. SIGNIFICANT CHANGE FROM PRIOR EXAM: Significant change if liver stiffness measurement is 10% or greater from prior exam. OTHER CONSIDERATIONS: The stage of liver fibrosis may be overestimated in the setting of acute hepatitis, liver inflammation, elevated liver function tests, hepatic vascular congestion, obstructive cholestasis, non-fasting state, and infiltrative diseases such as amyloidosis and lymphoma. In some patients with NAFLD, the liver stiffness thresholds for compensated advanced chronic liver disease may be lower. In causes other than viral hepatitis and NAFLD, liver stiffness thresholds are not well established. Electronically signed by: Dipesh Chisholm MD 07/14/2025 11:34 AM EDT RP Dictated By: Dipesh Chisholm MD Signed By: <Electronically signed by Dipesh Chisholm MD in OV> 07/14/25 1134 DD/ 0843 TD/TT: 07/14/25 0916 Hand Collator: Procedure Note Donotuseinterpreter, Image - 07/14/2025 [place] [id number] Ultrasound Report Signed Patient: Tiffany Vergara MMR#: [id number] 91 : 1965Acct:[id number] Age/Sex: 60 / FADM Date: 07/14/25 Loc: HO.US Attending Dr: Maryana Winkler MD Ordering Physician: Maryana Winkler MD Date of Service: 07/14/25 Procedure(s): US abdomen comp w elastography Accession Number(s): [id number] cc: Maryana Winkler MD Reason for Exam: transaminitis, Hep B EXAMINATION: US COMPLETE ABDOMEN WITH LIVER ELASTOGRAPHY CLINICAL INFORMATION: transaminitis, Hep B COMPARISON: CT on May 26, 2024 TECHNIQUE: Real-time imaging of the abdominal viscera. Noninvasive ultrasound liver fibrosis assessment is performed using Ablert ElastPQ point quantification shear wave elastography (pSWE) with a C5-2 MHz transducer. Multiple elastography samples are obtained. FINDINGS: PANCREAS: The visualized pancreatic head and body are normal in appearance. The remainder of the pancreas is obscured from visualization by the overlying bowel gas. ABDOMINAL AORTA: No aortic aneurysm is seen. INFERIOR VENA CAVA: Visualized portions are normal. LIVER: The liver demonstrates normal size, contour and echogenicity. No focal lesion or intrahepatic biliary duct dilatation. The right lobe measures 15 cm in length. The left lobe measures 10 cm in length. The main portal vein is patent with a normal direction of flow. Demonstrates a continuous venous waveform. Shear wave liver elastography median stiffness is 1.6 m/s (reference: normal median stiffness is 1.3 m/s or less). IQR/median stiffness to assess sampling precision is 0.1 (reference: good quality data set is IQR/median stiffness of 0.15 or less). GALLBLADDER: The gallbladder is physiologically distended without evidence of stones, sludge, polyps, wall thickening or pericholecystic fluid. COMMON BILE DUCT: Normal in caliber measuring 0.5 cm in diameter. RIGHT KIDNEY: There is pelviectasis. No renal calculi or focal parenchymal lesions. The kidney measures 9.6 cm in maximum dimension. LEFT KIDNEY: There is pelviectasis. No renal calculi or focal parenchymal lesions. The kidney measures 10.2 cm in maximum dimension. SPLEEN: Unremarkable. The spleen measures 7.6 cm in maximum dimension. FREE FLUID: None seen. US/US abdomen comp w elastography IMPRESSION: Unremarkable. Liver. Liver elastography: In the absence of other known clinical signs, measurements rule out compensated advanced chronic liver disease. If there are known clinical signs, further testing may be needed for confirmation. Bilateral pelviectasis, a stable and nonspecific finding. REFERENCE: Society of Radiologists in Ultrasound Liver Stiffness Thresholds (2020): LIVER STIFFNESS THRESHOLDS: *Liver Stiffness equal or less than 1.3 m/s: High probability of being normal. *Liver Stiffness less than 1.7 m/s: In the absence of other known clinical signs, rules out compensated advanced chronic liver disease. *Liver Stiffness 1.7-2.1 m/s: Suggestive of compensated advanced chronic liver disease but need further test for confirmation. *Liver Stiffness over 2.1 m/s: Rules in compensated advanced chronic liver disease. *Liver Stiffness over 2.4 m/s: Suggestive of clinically significant portal hypertension. QUALITY OF DATA SET: *IQR/Median value equal or less than 0.15 implies a quality data set. *IQR/Median value over 0.15 implies a poor quality data set. SIGNIFICANT CHANGE FROM PRIOR EXAM: Significant change if liver stiffness measurement is 10% or greater from prior exam. OTHER CONSIDERATIONS: The stage of liver fibrosis may be overestimated in the setting of acute hepatitis, liver inflammation, elevated liver function tests, hepatic vascular congestion, obstructive cholestasis, non-fasting state, and infiltrative diseases such as amyloidosis and lymphoma. In some patients with NAFLD, the liver stiffness thresholds for compensated advanced chronic liver disease may be lower. In causes other than viral hepatitis and NAFLD, liver stiffness thresholds are not well established. Electronically signed by: Dipesh Chisholm MD 07/14/2025 11:34 AM EDT Dictated By: Dipesh Chisholm MD Signed By: <Electronically signed by Dipesh Chisholm MD in OV> 07/14/25 1134 DD/ 0843 TD/TT: 07/14/25 0916 Hand Collator: us Maryana Winkler MD IMG US PROCEDURES Final Result * XR Chest 2 Views (05/19/2025 8:30 AM EDT) Anatomical Region Laterality Modality Chest Radiographic Jalyn ging 05/19/2025 8:30 AM EDT Narrative 05/19/2025 8:48 AM EDT [place] [address] XRay Report Signed Patient: Tiffany Vergara MR#: [id number] 91 : 1965 Acct:[id number] Age/Sex: 60 / F ADM Date: 05/19/25 Loc: [facility] Attending Dr: Leonardo Apple PA-C Ordering Physician: Leonardo Apple PA-C Date of Service: 05/19/25 Procedure(s): XR chest 2V Accession Number(s): [id number] cc: Leonardo Apple PA-C; Maryana Winkler MD [...] signed by Peyman Panda MD in OV> 05/19/25844 DD/ 9 TD/TT: 05/19/25838 Hand Collator: Procedure Note Donotuseinterpreter, Image - 05/19/[address] [address] XRay Report Signed Patient: Tiffany Vergara MMR#: [id number] 91 : 1965Acct:[id number] Age/Sex: 60 / FADM Date: 05/19/25 Loc: [facility] Attending Dr: Leonardo Apple PA-C Ordering Physician: Leonardo Apple PA-C Date of Service: 05/19/25 Procedure(s): XR chest 2V Accession Number(s): [id number] cc: Leonardo Apple PA-C; Maryana Winkler MD [...] signed by Peyman Panda MD in OV> 05/19/25844 DD/ 9 TD/TT: 05/19/25838 Hand Collator: [facility] External Provider IMG XR PROCEDURES Edited Result - Final * Hm Mammography (04/27/2025 8:52 AM EDT) Anatomical Region Laterality Modality Other us Historical Provider HEALTH MAINTENANCE Final Result * THINPREP TIS PAP AND HPV mRNA E6/E7, CT/NG, TRICH (01/16/2022 1:29 PM EST) Chlamydia trachomatis RNA, TMA, Urogenital NOT DETECTED NOT DETECTED [facility] Clinical Information: None given [facility] COMMENT SEE COMMENT [facility] Comment: The analytical performance characteristics of this assay, when used to test SurePath(TM) specimens have been determined by [employer]. The modifications have not been cleared or approved by the FDA. This assay has been validated pursuant to the CLIA regulations and is used for clinical purposes. For additional information, please refer to [email or web address]/faq/BNC163 (This link is being provided for information/ [...] has been evaluated with computer assisted technology. [facility] Building Wrecker: SEE COMMENT [facility] Comment: RXB, CT(ASCP) CT screening location: [place] [address] HPV nRNA E6/E7 Not Detected Not Detected [facility] Comment: Methodology: Mainspring Strip Gauger-Mediated Amplification This assay detects E6/E7 viral messenger RNA (mRNA) from 14 high-risk HPV types (16,18,31,33,35,39,45,51,52,56,58,59,66,68). The analytical performance characteristics of this assay have been determined by [employer]. The modifications have not been cleared or approved by the FDA. This assay has been validated pursuant to the CLIA regulations and is used for clinical purposes. For additional information, please refer to [email or web address]/faq/CZI570d0 (This link if provided for information/ educational [...] of this assay have been determined by [employer]. The modifications have not been cleared or approved by the FDA. This assay has been validated pursuant to the CLIA regulations and is used for clinical purposes. For additional information, please refer to [email or web address]/ faq/Trichomonastma (This link is being provided for information/ educational purposes only.) 01/16/2022 1:29 PM EST us Maryana Winkler MD LAB PATHOLOGY ORDERABLES Final R esult [facility] [address] * HEPATITIS C AB W/REFL TO HCV RNA, QN, PCR (10/24/2021 8:20 AM EST) HEPATITIS C ANTIBODY NON-REACT IMTIAZ NON-REACT IMTIAZ [facility] INDEX 0.02 <1.00 [facility] Comment: HCV antibody was non-reactive. There is no laboratory evidence of HCV infection. In most cases, no further action is required. However, if recent HCV exposure is suspected, a test for HCV RNA (test code 68584) is suggested. For additional information please refer to [email or web address]/faq/QDF66s9 (This link is being provided for informational/ educational purposes only.) 10/24/2021 8:20 AM EST us Maryana Winkler MD HISTORICAL/NON ORDERABLE LABS Fi nal Result Performing Organization Address [facility]/ZIP Co de Phone Number [facility] [address] * HIV 1/2 ANTIGEN/ANTIBODY,FOURTH GENERATION W/RFL (10/24/2021 8:20 AM EST) HIV-1/2 ANTIGEN AND ANTIBODIES, 4TH GENERATION W/ REFLEX NON-REACT IMTIAZ NON-REACT IMTIAZ [facility] Comment: HIV-1 antigen and HIV-1/HIV-2 [...] purpose. For additional information please refer to http://education.[employer]/faq/VRP219 (This link is being provided for informational/ educational purposes only.) The performance of this assay has not been clinically validated in patients less than 2 years old. 10/24/2021 8:20 AM EST Maryana Winkler MD LAB BLOOD ORDERABLES Final Resul t Performing Organization Address [facility] Co de Phone Number [facility] [address] * (ABNORMAL) Hm Colonoscopy (2016) Colonoscopy Normal(A) Normal 2016 Estee Smith [facility] MAINTENANCE Edited Result - Final from Last 3 Months or Most Recently Relevant to Health Maintenance Insurance [facility] ONE CARE < 65 MELISSA JARRETT [id number] Advance Directives Documents on File Type Date Recorded Patient Hemodialysis Rn Expl anation HealthCare Proxy 03/12/2023 Health Care Proxy Form Care Teams Cable Coverer Relationship Specialty Start Date End Date Maryana Winkler MD [address] [place] [address] PCP - General Family Medicine 11/12/18
--- OUTSIDE RECORDS SUMMARY | 2025-08-13 14:58 | XMS_ITS | Encounter Summary ---
Author Organization [employer] Address [address] [place] [address] Care Team Providers Care Structural Steel Trades Worker Name Role Phone Maryana Winkler MD Primary Care Provider [phone] Reason for Visit * Reason Comments Med Refill Encounter Details Date Type Department Care Team ([facility] st Contact Info) Description 08/13/2024 Refill [facility] MEDICINE [address], [place] [phone] Maryana Winkler MD [address] [place], [place] [phone] Social History Tobacco Use Types Packs/Day Years [...] Description 10/21/2025 8:00 AM EST Office Visit [facility] ADULT DENTAL [address] [place] [address] [place] [address] [place] [address] documented as of this encounter Visit Diagnoses Not on filedocumented in this encounter Additional Health Concerns Assessment Noted Time PHQ-9 Depression Total Score: 13 024 11:34 AM EST documented as of this encounter Care Teams Structural Steel Trades Worker Relationship Specialty Start Date End Date Maryana Winkler MD [address] [place] [address] PCP - General Family Medicine 11/12/18 documented as of this encounter
--- OUTSIDE RECORDS SUMMARY | 2025-08-13 14:58 | XMS_ITS | Encounter Summary ---
Author Organization [employer] Address [address] [place] [address] [address] [place] [address] Care Team Providers Care Trimmer Machine Name Role Phone Maryana Winkler MD Primary Care Provider [phone] Reason for Visit * Reason Comments Med Refill Encounter Details Date Type Department Care Team (Late st Contact Info) Description 07/23/2023 Refill [facility] & PEDS [address] [place], [place] [phone] Maryana Winkler MD [address] [place] [address] Allergic rhinitis, unspecified seasonality, unspecified trigger Social [...] [facility] ADULT D[facility] [address] [place], [place] [phone] En[place] Henry [address] [place] [address] documented as of this encounter Visit Diagnoses Diagnosis Allergic rhinitis, unspecified seasonality, unspecified trigger documented in this encounter Additional Health Concerns Assessment Noted Time PHQ-9 Depression Total Score: 4 12/14/19 23 9:31 AM EST documented as of this encounter Care Teams Trimmer Machine Relationship Specialty Start Date End Date Maryana Winkler MD [address] [place] [address] PCP - General Family Medicine 11/12/18 documented as of this encounter
== END 2025-08-13 14:20 | disposition home or self-care (01) ==
LOC: HO.HCS 13:26
PROVIDERS: PCP Family Medicine; Visit Provider Nurse Practitioner Family
DX: R06.02 Shortness of breath (principal); R00.2 Palpitations
CPT/HCPCS: 99213; G2211

== ENCOUNTER → 2025-08-13 13:25 | Outpatient (BNVA) | payer OTHER, SELFPAY | PROVIDERS: PCP Family Medicine; Visit Provider Nurse Practitioner Family | DX: R06.02 Shortness of breath (principal); R00.2 Palpitations | CPT/HCPCS: 99212 ==

== ENCOUNTER 2025-08-20 08:44 | Outpatient (AMB) | payer OTHER, SELFPAY ==
--- NOTE | 2025-08-20 08:44 | A.OFFVIS_ITS ---
Vital Signs 08/20/25 08:52 Height 4 ft 11 in Weight 117 lb BMI 23.6 BP 108/70 Blood Pressure Location Lt brachial Position Sitting Respiration 16 Pulse 64 Pulse Source Pulse Oximeter Pulse Oximetry (%) 97 Oxygen Delivery Method Room Air Intake Visit Reasons: follow up Senior Outside Sales Representative Required: Yes Senior Outside Sales Representative Services: Senior Outside Sales Representative Present Senior Outside Sales Representative Name: Jeremias ID [id number] Information Interpreted: non-clinical & clinical Allergies No Known Drug Allergies Allergy (Unknown, Verified 08/20/25 08:53) none Juan seeds Allergy (Uncoded 08/20/25 08:53) Anaphylaxis poppy seeds Allergy (Uncoded 08/20/25 08:53) Itching Medication List - Last Reconciled 08/20/25 by Elzbieta Frankel CNP albuterol sulfate 90 mcg/actuation 2 puffs inhalation Q6H PRN arm brace (Wrist Support One Size) As directed atorvastatin 40 mg PO DAILY bisacodyl 10 mg (2 x 5 mg) PO BEDTIME bupropion HCl XL 300 mg PO QAM buspirone 30 mg PO BEDTIME cholecalciferol (vitamin D3) (Vitamin D3) 50 mcg PO QAM [cock up splint wear on each wrist at night.] Dexilant (dexlansoprazole) 60 mg PO BEDTIME NS diclofenac sodium 1% 2 grams topical BID PRN dicyclomine 10 mg PO TID PRN docusate sodium 200 mg (2 x 100 mg) PO BEDTIME PRN duloxetine 60 mg PO BID fluticasone propionate 50 mcg/actuation 1 spray intranasal QAM PRN gabapentin mg PO hydroxyzine HCl 50 mg PO BEDTIME 90 days lidocaine 4% 1 patch topical DAILY PRN linaclotide (Linzess) 290 mcg PO QAM loratadine 10 mg PO DAILY magnesium oxide 400 mg PO QAM melatonin 3 mg PO BEDTIME PRN metoclopramide HCl 10 mg PO QID midodrine 10 mg PO TID 90 days mometasone 200 mcg/actuation (Asmanex HFA) 1 puff inhalation BID montelukast (Singulair) 10 mg PO DAILY neomycin-polymyxin B-dexameth 3.5mg/mL-10,000 unit/mL-0.1 % 1 drp ophthalmic (eye) QID prazosin 1 - 2 mg PO BEDTIME simethicone 180 mg PO QID sumatriptan succinate take 1 tab at onset of headache; if no relief, may repeat 1 tab after at least 2 hrs; max = 2 tabs/24 hrs PO topiramate 50 mg PO BID HPI Comments Details: Tiffany is a 60-year-old female patient following in the clinic for headache. She has a longstanding history of headache and has been followed in the clinic by Dr. Turner. She has tried numerous first-line preventives in the past for management of her migraines. She had a hospitalization in January of 2025 for difficulty with word finding at which time her topiramate was reduced from a 200 mg total daily dose to a 100 mg total daily dose (50 mg twice daily). She was also taken off her amitriptyline at that time which was used for both sleep and headache control. In the past, she has used a CPAP device for treatment of JAMI however she lost a substantial amount of weight and has been able to since come off of her CPAP device. She reports that she does still have insomnia but overall her sleep is stable. She is currently having headaches at a frequency of 2-3 times per month however they can last up to 3-5 days. Sumatriptan generally does work well to abort her headache within 1/2 hour but sometimes headaches well return. Headaches are predominantly to the frontal and occipital areas accompanied by dizziness, vomiting, and at times blurry vision. Headaches can be severe and impact her day-to-day living. They are pounding and sharp. She does note that she goes to the acupuncture clinic at [facility] and with the acupuncture she almost always has complete relief of any existing headache. She finds the acupuncture therapy to be extremely helpful. Past medication trials: Propranolol-no improvement Hwxecznntjgnd-gecq-tcrjkdi difficulties and palpitations Exkypgsitg-wapw-dpgpwtc difficulties at higher doses but continues to take at lower doses than prior Verapamil-has tried in the past but not taking for unclear reasons Aimovig-patient believes that she did try Aimovig but it caused her an allergic reaction including reddened face/rash Nurte-had samples given in the past per documentation without any benefit Rizatriptan-no benefit Sumatriptan-works well [facility] Medical History (Updated 08/20/25 @ 09:54 by Elzbieta Frankel CNP) GERD (gastroesophageal reflux disease) Diverticulitis Bilateral carpal tunnel syndrome Polyarthralgia Fracture of proximal phalanx of right thumb Carpal tunnel syndrome of left wrist Distal radius fracture, left Asthma Hepatitis B Fibromyalgia Surgical History H/O breast surgery H/O reduction mammoplasty Hx of abdominoplasty (~2004) History of open reduction and internal fixation (ORIF) procedure (~02/2018) Hx of section (~1979) Hx of colonoscopy Family History Father Lung cancer Diabetes Hepatitis Brother Diabetes Lung cancer Sister Gastritis Social History Household Members: Family Housing: House Do you presently have visiting nurse or other home services: No Alcohol intake: never Patient Tobacco Use Status: Never used Tobacco e-Cigarette/Vaping Use: Never Used Advance Directives Date on File: 01/10/25 service: No Physical Exam Vital Signs: Last Vital Signs Pulse 64 08/20/25 08:52 Resp 16 08/20/25 08:52 BP 108/70 08/20/25 08:52 Pulse Ox 97 08/20/25 08:52 Oxygen Delivery Method Room Air 08/20/25 08:52 BMI result Body Mass Index 23.6 Const General: cooperative, healthy appearing, comfortable and no acute distress Nutritional Appearance: well nourished Orientation/consciousness: patient oriented x3 Limitations: no limitations HEENT Head: Yes normal to inspection and Yes normocephalic Eyes General: appearance normal, both eyes and all related structures Visual Khalil: normal visual khalil by confrontation Alignment and Position: alignment normal Periorbital: periorbital findings normal Eyelids: Yes eyelids normal Conjunctivae: conjunctivae normal Sclerae: sclerae normal Neuro General: patient oriented x3 and deep tendon reflexes 2+ bilaterally Cranial nerves: Yes CN's II-XII intact bilaterally and Yes Facial sensation intact/muscles of mastication intact Cognition (Neuro): normal cognition Gait exam (Neuro): Normal gait present Motor exam (neuro): 5/5 motor strength present throughout and no tremor noted Sensory Exam: double simultaneous stimulation for sensation normal Romberg Test: Negative Pupils: Normal pupillary reactivity/response: bilateral Psych Appearance: grossly normal Mental Status: mental status grossly normal Speech and movement: Normal speech and movement present and Clear speech present Affect: normal affect Attitude: cooperative Thought process: Normal thought process present Thought content: Normal thought content present Insight: Good insight present (Psych) Judgement: Good judgement present (Psych) Assessment & Plan Assessment & Plan (1) Migraine without aura and without status migrainosus, not intractable: Code(s): G43.009 - Migraine without aura, not intractable, without status migrainosus Category: Medical Plan Tiffany is a 60-year-old female patient following in the clinic for headache. She has a longstanding history of headache and has been followed in the clinic by Dr. Turner. She has tried several first-line therapies in the past but still headaches remain poorly controlled. Her past medication trials are outlined in the note above. She does believe that she tried 1 of the anti CGRP injectable therapies in the past. I pulled up some pictures for her and she does believe that was the Aimovig. She had an allergic reaction including face redness and rashing with increased headache. She is also in the past tried Nurtec without benefit. I am recommending that she trial Qulipta 30 mg daily for headache preventive therapy. For now, we will continue the topiramate at 50 mg twice daily and she will continue acupuncture and sumatriptan for acute therapy. We will follow up in 6 weeks to see how she is doing. I did advise her to reach out if she has any adverse reactions. -trial of Qulipta 30 mg daily. Samples provided during today's visit (2 boxes of Qulipta with 4 tablets in each. Lot number [id number] and expiration 04/2026) -continue topiramate 50 mg twice daily -continue sumatriptan for abortive therapy -continue with acupuncture as needed through the [facility] clinic Medications: New atogepant (Qulipta) 30 mg PO DAILY 30 tabs 5RF 30 days Coding Level of Care Code Est Pt Level 4 (20833) Diagnoses Migraine without aura and without status migrainosus, not intractable G43.009
[2025-08-20 08:52] VITALS: BP 108/70; PULSE 64; RESP 16; O2SAT 97; BMI 23.6
== END 2025-08-20 09:31 | disposition home or self-care (01) ==
LOC: HO.HSM 08:44
PROVIDERS: PCP Family Medicine; Visit Provider Nurse Practitioner
DX: G43.009 Migraine without aura, not intractable, without status migrainosus (principal)
CPT/HCPCS: 99214

== ENCOUNTER → 2025-08-20 08:44 | Outpatient (BNVA) | payer OTHER, SELFPAY | PROVIDERS: PCP Family Medicine; Visit Provider Nurse Practitioner | DX: G43.009 Migraine without aura, not intractable, without status migrainosus (principal) | CPT/HCPCS: 99212 ==

== ENCOUNTER 2025-09-30 09:27 | Outpatient (AMB) | payer OTHER, SELFPAY ==
--- NOTE | 2025-09-30 09:27 | MHC.OFFVIS ---
Vital Signs 09/30/25 09:33 Height 4 ft 11 in Weight 116 lb BMI 23.4 BP 112/70 Blood Pressure Location Rt brachial Position Sitting Respiration 16 Pulse 81 Pulse Source Pulse Oximeter Pulse Oximetry (%) 99 Oxygen Delivery Method Room Air Intake Visit Reasons: 6 weeks follow up Allergies No Known Drug Allergies Allergy (Unknown, Verified 09/30/25 09:34) none Juan seeds Allergy (Uncoded 08/20/25 08:53) Anaphylaxis poppy seeds Allergy (Uncoded 08/20/25 08:53) Itching HPI Comments Details: Tiffany is a 60-year-old female patient following in the clinic for headache. She has a longstanding history of headache and has been followed in the clinic by Dr. Turner. She has tried numerous first-line preventives in the past for management of her migraines. She had a hospitalization in January of 2025 for difficulty with word finding at which time her topiramate was reduced from a 200 mg total daily dose to a 100 mg total daily dose (50 mg twice daily). She was also taken off her amitriptyline at that time which was used for both sleep and headache control. In the past, she has used a CPAP device for treatment of JAMI however she lost a substantial amount of weight and has been able to since come off of her CPAP device. She reports that she does still have insomnia but overall her sleep is stable. At the time of our last visit together, she explained she was having approximately 2-3 headaches per month however they could last up to 3-5 days. Sumatriptan was working well to abort her headache within half an hour but sometimes headaches with rebound. Headaches were predominantly to the frontal and occipital areas accompanied by dizziness, vomiting, and at times blurry vision. Headaches can be severe and impact her day-to-day living. They were described as pounding and sharp. She did note that she goes to the acupuncture clinic at [facility] and with the acupuncture she almost always has complete relief of any existing headache. She finds the acupuncture therapy to be extremely helpful. At the time of her last visit, we started her on a trial of Qulipta 30 mg daily and continued her topiramate 50 mg twice daily with her sumatriptan for abortive therapy. She also continued her acupuncture treatments. Today in follow up she tells me, that she has been improving. She has noticed both a decrease in the severity and frequency of her headaches. She had 1 less intense headache last week and that is all. She does continue to use sumatriptan as needed which continues to work well within 1/2 hour of administration. She has no other arising concerns today. Past medication trials: Propranolol-no improvement Uimwpvgscjugk-lfla-bbtynwc difficulties and palpitations Ezbhdnaymk-etdk-zjlxebw difficulties at higher doses but continues to take at lower doses than prior Verapamil-has tried in the past but not taking for unclear reasons Aimovig-patient believes that she did try Aimovig but it caused her an allergic reaction including reddened face/rash Nurtec-had samples given in the past per documentation without any benefit Rizatriptan-no benefit Sumatriptan-works well [facility] Medical History (Updated 08/20/25 @ 09:54 by Elzbieta Frankel, SHERIF) GERD (gastroesophageal reflux disease) Diverticulitis Bilateral carpal tunnel syndrome Polyarthralgia Fracture of proximal phalanx of right thumb Carpal tunnel syndrome of left wrist Distal radius fracture, left Asthma Hepatitis B Fibromyalgia Surgical History H/O breast surgery H/O reduction mammoplasty Hx of abdominoplasty (~2004) History of open reduction and internal fixation (ORIF) procedure (~02/2018) Hx of section (~1979) Hx of colonoscopy Family History Father Lung cancer Diabetes Hepatitis Brother Diabetes Lung cancer Sister Gastritis Social History Household Members: Family Housing: House Do you presently have visiting nurse or other home services: No Alcohol intake: never Patient Tobacco Use Status: Never used Tobacco e-Cigarette/Vaping Use: Never Used Advance Directives Date on File: 01/10/25 service: No Review of Systems Const All systems reviewed & are unremarkable except as noted in HPI and below Physical Exam Vital Signs: Last Vital Signs Pulse 81 09/30/25 09:33 Resp 16 09/30/25 09:33 BP 112/70 09/30/25 09:33 Pulse Ox 99 11/19/25 09:33 Oxygen Delivery Method Room Air 09/30/25 09:33 BMI result Body Mass Index 23.4 Const General: cooperative, healthy appearing, comfortable and no acute distress Nutritional Appearance: well nourished Orientation/consciousness: patient oriented x3 Limitations: no limitations HEENT Head: Yes normal to inspection and Yes normocephalic Eyes General: appearance normal, both eyes and all related structures Visual Khalil: normal visual khalil by confrontation Alignment and Position: alignment normal Periorbital: periorbital findings normal Eyelids: Yes eyelids normal Conjunctivae: conjunctivae normal Sclerae: sclerae normal Neuro General: patient oriented x3 Cranial nerves: Yes CN's II-XII intact bilaterally Cognition (Neuro): normal cognition Gait exam (Neuro): Normal gait present Motor exam (neuro): no tremor noted Sensory Exam: double simultaneous stimulation for sensation normal Romberg Test: Negative Pupils: Normal pupillary reactivity/response: bilateral Psych Appearance: grossly normal Mental Status: mental status grossly normal Speech and movement: Normal speech and movement present and Clear speech present Affect: normal affect Attitude: cooperative Thought process: Normal thought process present Thought content: Normal thought content present Insight: Good insight present (Psych) Judgement: Good judgement present (Psych) Assessment & Plan Assessment & Plan (1) Migraine without aura and without status migrainosus, not intractable: Code(s): G43.009 - Migraine without aura, not intractable, without status migrainosus Category: Medical Plan Tiffany is a 60-year-old female patient following in the clinic for headache. She has a longstanding history of headache and has been followed in the clinic by Dr. Turner. She has tried several first-line therapies in the past but still headaches remain poorly controlled. Her past medication trials are outlined in the note above. She does believe that she tried 1 of the anti CGRP injectable therapies in the past. I pulled up some pictures for her and she does believe that was the Aimovig. She had an allergic reaction including face redness and rashing with increased headache. She is also in the past tried Nurtec without benefit. At the time of our last visit, I recommended a trial of Qulipta 30 mg daily and to continue her topiramate for preventive therapy. She was also advised to continue her sumatriptan and acupuncture. She tells me today that she has seen significant improvement after initiation of the Qulipta with a reduction in both the frequency and intensity for migraines. She is very happy with her control at this time. She would like to continue on this regimen. -continue Qulipta 30mg daily -continue topiramate 50 mg twice daily -continue sumatriptan for abortive therapy -continue with acupuncture as needed through the [facility] clinic -follow-up in 3 months or sooner if needed Coding Level of Care Code Est Pt Level 3 (39830) Diagnoses Migraine without aura and without status migrainosus, not intractable G43.009
[2025-09-30 09:33] VITALS: BP 112/70; PULSE 81; RESP 16; O2SAT 99; BMI 23.4
--- OUTSIDE RECORDS SUMMARY | 2025-09-30 17:23 | XMS_ITS | Encounter Summary ---
Author Organization [employer] Address [address] [facility] [address] [place] [address] Care Team Providers Care Correctional Officer Lieutenant Name Role Phone Maryana Winkler MD Primary Care Provider [phone] Reason for Visit * Reason Onset Date Comments Appointment Request 01/19/2025 Encounter Details Date Type Department Care Team ([facility] st Contact Info) Description 01/19/2025 Telephone [facility] MEDICINE [address] [place], [place] [phone] Maryana Winkler MD [address] [place], [place] [phone] Appointment Request Social History Tobacco Use Types [...] appt with PCP. Reports was admitted at [facility] 01/10-01/15 for anaphylactic shock after consuming [...] Description 10/21/2025 8:00 AM EST Office Visit [facility] ADULT DENTAL [address] [place] [address] Carl, [place] [address] [place] [address] documented as of this encounter Visit Diagnoses Not on filedocumented in this encounter Additional Health Concerns Assessment Noted Time PHQ-9 Depression Total Score: 13 024 11:34 AM EST documented as of this encounter Care Teams Correctional Officer Lieutenant Relationship Specialty Start Date End Date Maryana Winkler MD [address] [place] [address] PCP - General Family Medicine 11/12/18 documented as of this encounter
--- OUTSIDE RECORDS SUMMARY | 2025-09-30 17:24 | XMS_ITS | Encounter Summary ---
Author Organization [employer] Address [address] [facility] 7t [place] [address] Care Team Providers Care Garbage Depot Worker Name Role Phone Maryana Winkler MD Primary Care Provider [phone] Reason for Visit * Reason Comments Med Refill Encounter Details Date Type Department Care Team ([facility] st Contact Info) Description 08/02/2024 Refill [facility] MEDICINE [address] [place], [place] [phone] Maryana Winkler MD [address] [place], [place] [phone] Social History Tobacco Use Types Packs/Day Years [...] Description 10/21/2025 8:00 AM EST Office Visit [facility] ADULT DENTAL [address] [place] [address] CarlWernerEnid [address] [place] [address] documented as of this encounter Visit Diagnoses Not on filedocumented in this encounter Additional Health Concerns Assessment Noted Time PHQ-9 Depression Total Score: 13 024 11:34 AM EST documented as of this encounter Care Teams Garbage Depot Worker Relationship Specialty Start Date End Date Maryana Winkler MD [address] [place] [address] PCP - General Family Medicine 11/12/18 documented as of this encounter
--- OUTSIDE RECORDS SUMMARY | 2025-09-30 17:24 | XMS_ITS | Encounter Summary ---
Author Organization [employer] Address [address] [place] [address] [address]t [place] [address] Care Team Providers Care Call Center Analyst Name Role Phone Maryana Winkler MD Primary Care Provider [phone] Reason for Visit * Reason Comments Med Refill Encounter Details Date Type Department Care Team (Late st Contact Info) Description 07/23/2023 Refill [facility] CHC MED & PEDS [address] [place], [place] [phone] Maryana Winkler MD [address] [place] [address] Allergic rhinitis, unspecified seasonality, unspecified trigger Social [...] Description 10/21/2025 8:00 AM EST Office Visit [facility] ADULT DENTAL [address] [place], [place] [phone] Enid Henry [address] [place] [address] documented as of this encounter Visit Diagnoses Diagnosis Allergic rhinitis, unspecified seasonality, unspecified trigger documented in this encounter Additional Health Concerns Assessment Noted Time PHQ-9 Depression Total Score: 4 12/14/19 23 9:31 AM EST documented as of this encounter Care Teams Call Center Analyst Relationship Specialty Start Date End Date Maryana Winkler MD [address] [place] [address] PCP - General Family Medicine 11/12/18 documented as of this encounter
--- OUTSIDE RECORDS SUMMARY | 2025-09-30 17:24 | XMS_ITS | Encounter Summary ---
Author Organization [employer] Address [address] [facility] [address] [place] [address] Care Team Providers Care Physical Therapist Assistant Name Role Phone Maryana Winkler MD Primary Care Provider [phone] Encounter Details Date Type Department Care Team ([facility] st Contact Info) Description 01/19/2025 Telephone [facility] MEDICINE [address] [place], [place] [phone] Maryana Winkler MD [address] [place] [address] Social History Tobacco Use Types Packs/Day Years [...] Description 10/21/2025 8:00 AM EST Office Visit [facility] ADULT DENTAL [address] [place] [address] Werner Henryaris [address] [place] [address] documented as of this encounter Visit Diagnoses Not on filedocumented in this encounter Additional Health Concerns Assessment Noted Time PHQ-9 Depression Total Score: 13 024 11:34 AM EST documented as of this encounter Care Teams Physical Therapist Assistant Relationship Specialty Start Date End Date Maryana Winkler MD [address] [place] [address] PCP - General Family Medicine 11/12/18 documented as of this encounter
--- OUTSIDE RECORDS SUMMARY | 2025-09-30 17:24 | XMS_ITS | Encounter Summary ---
Author Organization [employer] Address [address] [facility] 7t [place] [address] Care Team Providers Care Flake Or Shred Roll Operator Name Role Phone Maryana Winkler MD Primary Care Provider [phone] Encounter Details Date Type Department Care Team ([facility] st Contact Info) Description 04/28/2025 Orders Only [facility] CHC MED & PEDS [address] [place], [place] [phone] ProviderCristopher MD Social History Tobacco Use Types [...] 10/21/2025 8:00 AM EST Office Visit [facility] ADULT DENTAL [address] [place] [address] Carl, [place] [address] [place] [address] documented as of this encounter Procedures Procedure Name Priority Date/Time Associated Diagnosis Comments XR CHEST 2 VIEWS Routine 05/19/2025 8:30 AM EDT HM MAMMOGRAPHY Routine 04/27/2025 8:52 AM EDT documented in this encounter Results * XR Chest 2 Views (05/19/2025 8:30 AM EDT) Anatomical Region Laterality Modality Chest Radiographic Jalyn ging 05/19/2025 8:30 AM EDT Narrative 05/19/2025 8:48 AM EDT [address] [address] XRay Report Signed Patient: Tiffany Vergara MR#: [id number] 91 : 1965 Acct:[id number] Age/Sex: 60 / F ADM Date: 05/19/25 Loc: [facility] Attending Dr: Leonardo Apple PA-C Ordering Physician: Leonardo Apple PA-C Date of Service: 05/19/25 Procedure(s): XR chest 2V Accession Number(s): [id number] cc: Leonardo Apple PA-C; Maryana Winkler MD [...] OV> 05/19/2545 DD/ 9 TD/TT: 05/19/25 0839 Stave Cutter: Procedure Note Donotuseinterpreter, Image - 05/19/2025 [place] [address] XRay Report Signed Patient: Tiffany Vergara MMR#: [id number] 91 : 1965Acct:[id number] Age/Sex: 60 / FADM Date: 05/19/25 Loc: [facility] Attending Dr: Leonardo Apple PA-C Ordering Physician: Leonardo Apple PA-C Date of Service: 05/19/25 Procedure(s): XR chest 2V Accession Number(s): [id number] cc: Leonardo Apple PA-C; Maryana Winkler MD [...] 05/19/25 0845 DD/ 0830 TD/TT: 05/19/25 0839 Stave Cutter: [facility] External Provider IMG XR PROCEDURES Edited Result - Final * Hm Mammography (04/27/2025 8:52 AM EDT) Anatomical Region Laterality Modality Other Historical Provider HEALTH MAINTENANCE Final Result documented in this encounter Visit Diagnoses Not on filedocumented in this encounter Additional Health Concerns Assessment Noted Time PHQ-9 Depression Total Score: 1 01/29/20 25 2:27 PM EDT documented as of this encounter Care Teams Flake Or Shred Roll Operator Relationship Specialty Start Date End Date Maryana Winkler MD [address] [place] [address] PCP - General Family Medicine 11/12/18 documented as of this encounter
--- OUTSIDE RECORDS SUMMARY | 2025-09-30 17:24 | XMS_ITS | Encounter Summary ---
Author Organization [employer] Address [address] [facility] [address] [place] [address] Care Team Providers Care Travel Specialist Name Role Phone Maryana Winkler MD Primary Care Provider [phone] Reason for Visit * Reason Comments Med Refill Encounter Details Date Type Department Care Team ([facility] st Contact Info) Description 08/13/2024 Refill [facility] MEDICINE [address] [place], [place] [phone] Maryana Winkler MD [address] [place], [place] [phone] Social History Tobacco Use Types Packs/Day Years [...] 8:00 AM EST Office Visit [facility] ADULT DENTAL [address] [place] [address] CarlWernerEnid [address] [place] [address] documented as of this encounter Visit Diagnoses Not on filedocumented in this encounter Additional Health Concerns Assessment Noted Time PHQ-9 Depression Total Score: 13 024 11:34 AM EST documented as of this encounter Care Teams Travel Specialist Relationship Specialty Start Date End Date Maryana Winkler MD [address] [place] [address] PCP - General Family Medicine 11/12/18 documented as of this encounter
--- OUTSIDE RECORDS SUMMARY | 2025-09-30 17:24 | XMS_ITS | Encounter Summary ---
Author Organization [employer] Address [address] [facility] 7t [place] [address] Care Team Providers Care Residential Door Unit Installer Name Role Phone Maryana Winkler MD Primary Care Provider [phone] Encounter Details Date Type Department Care Team ([facility] st Contact Info) Description 11/18/2024 Orders Only [facility] MEDICINE [address] [place] [address] ProviderCristopher MD Social History Tobacco Use Types [...] the past 12 months, has t he [employer] gas, oil or water company threatened to [...] Description 10/21/2025 8:00 AM EST Office Visit [facility] ADULT DENTAL [address] [place] [address] CarlWernerEnid [address] [place] [address] documented as of this encounter Procedures Procedure [...] documented as of this encounter Care Teams Residential Door Unit Installer Relationship Specialty Start Date End Date Maryana Winkler MD [address] [place] [address] PCP - General Family Medicine 11/12/18 documented as of this encounter
--- OUTSIDE RECORDS SUMMARY | 2025-09-30 17:24 | XMS_ITS | Encounter Summary ---
Author Organization [employer] Address [address] [place] [address] 7t [place] [address] Care Team Providers Care Rubber Goods Assembler Name Role Phone Maryana Winkler MD Primary Care Provider [phone] Encounter Details Date Type Department Care Team (Latest Contact Info) Description 03/23/2022 Abstract [facility] CONVERSIONS Dental, Provider, DDS Social History [...] Description 10/21/2025 8:00 AM EST Office Visit [facility] ADULT DENTAL [address] [place] [address] Carl [place] [address] [place] [address] documented as of this encounter Visit Diagnoses Not on filedocumented in this encounter Care Teams Rubber Goods Assembler Relationship Specialty Start Date End Date Maryana Winkler MD [address] [place] [address] PCP - General Family Medicine 11/12/18 documented as of this encounter
--- OUTSIDE RECORDS SUMMARY | 2025-09-30 17:24 | XMS_ITS | Encounter Summary ---
Author Organization [employer] Address [address] [facility] 7t [place] [address] Care Team Providers Care Second Baker Name Role Phone Maryana Winkler MD Primary Care Provider [phone] Encounter Details Date Type Department Care Team ([facility] st Contact Info) Description 01/11/2025 Orders Only [facility] MEDICINE [address] [place], [place] [phone] Maryana Winkler MD [address] [place] [address] Acute right ankle pain Social History Tobacco [...] Description 10/21/2025 8:00 AM EST Office Visit [facility] ADULT DENTAL [address] [place] [address] Carl, [place] [address] [place] [address] documented as of this encounter Visit Diagnoses Diagnosis Acute right ankle pain documented in this encounter Additional Health Concerns Assessment Noted Time PHQ-9 Depression Total Score: 13 024 11:34 AM EST documented as of this encounter Care Teams Second Baker Relationship Specialty Start Date End Date Maryana Winkler MD [address] [place] [address] PCP - General Family Medicine 11/12/18 documented as of this encounter
--- OUTSIDE RECORDS SUMMARY | 2025-09-30 17:24 | XMS_ITS | Clinical Summary ---
Author Organization [employer] Address [address] [place] [address] [address] [place] [address] Care Team Providers Care Inside Sales Engineer Name Role Phone Maryana Winkler MD Primary Care Provider [phone] Allergies Active Allergy Reactions Criticality Noted Date Comments Jayess Oil Anaphylaxis High 12/07/2023 Suzie Oil (Salvia [...] for nightmares 025 Active Blood Pressure Monitor [facility] [place] BP daily 1 each 025 Active montelukast (Singulair) 10 MG tablet TAKE 1 TABLET BY MOUTH EVERY EVENING 90 tablet 3 025 Active EPINEPHrine (Epipen) 0.3 MG/0.3ML injection syringe INJECT INTRAMUSCULARLY DIRECTED ON PACKAGE AND GO TO EMERGENCY ROOM 2 each 1 025 Active ketoconazole (NIZOral) 2 % cream Apply to affected area once or twice daily 60 g 1 025 Active D3 Super Strength 50 MCG (1999 UT) capsule TAKE 1 CAPSULE BY MOUTH EVERY MORNING 30 capsule 3 Active topiramate 50 MG tablet TAKE 1 TABLET BY MOUTH TWICE DAILY IN THE MORNING AND AT BEDTIME 60 tablet 1 Active gabapentin (Neurontin) 100 MG capsule Take 2 capsules (200 mg) by mouth 3 times daily. 180 capsule Active gabapentin (Neurontin) 100 MG capsule TAKE 2 CAPSULES BY MOUTH THREE TIMES DAILY IN THE MORNING, EVENING AND BEDTIME 180 capsule 2024 Discontinued gabapentin (Neurontin) 100 MG capsule Take 2 capsules (200 mg) by mouth 3 times daily. 180 capsule 025 2024 Discontinued gabapentin (Neurontin) 100 MG capsule TAKE 2 CAPSULES BY MOUTH THREE TIMES DAILY IN THE MORNING, EVENING AND BEDTIME 180 capsule 2024 Discontinued Active Problems Problem Noted Date Diagnosed Date Bilateral shoulder pain 08/20/2025 Assessment & Plan (08/20/2025 12:42 PM EDT): - refer to orthopedist Discoloration of skin 08/20/2025 Assessment & Plan (08/20/2025 12:49 PM EDT): - under breast - trial of azole antifungal cream Idiopathic urticaria 05/13/2025 Assessment & Plan (05/25/2025 6:13 AM EDT): Following with petroleum supply specialist Hypotension 02/13/2025 Assessment & Plan (02/13/2025 [...] EDT): - carry epi-pen - referred to petroleum supply specialist Chronic headache 02/09/2025 Assessment & Plan [...] reduction - continue following with recommendation from [facility] provider Transaminitis 02/09/2025 Overview (07/14/2025): - Liver US / elastography on 07/14/25. Shear wave median stiffness 1.6 m/s. Assessment & Plan (08/20/2025 12:47 PM EDT): - In a setting of Hep B and polypharmacy - Last liver test: 03/11/25 - Liver US / elastography on 07/14/25. Shear wave median stiffness 1.6 m/s. - FIB4 index 1.58 - GI: [facility] - continue working on lifestyle modifications - continue surveillance study Assessment & Plan (05/13/2025 10:12 AM EDT): - In a setting of Hep B - Last liver test: 03/11/25 - Last US / elastography - will update - FIB4 index 1.58 - GI: [facility] - continue working on lifestyle modifications - continue surveillance study Food allergy 01/28/2025 Overview (01/28/2025): Suzie and poppy seeds, LAZARO allergy Assessment & Plan (05/25/2025 6:10 AM EDT): - Evaluated by petroleum supply specialist at [facility], most recent visit 04/28/2025. - Currently identified [...] left eyelid and likely bl allergic conjunctivitis -clerical clerk evaluation referred today -has apt w dermatology [...] on 01/25/[address] Smitha Greene at [facility] -continue following with recommendations by Orthopedist -no longer in cast -Continue occupational therapy Assessment & Plan (02/08/2023 1:33 PM EDT): S/p surgery on 01/25/23 -continue following with recommendations by Orthopedist -currently in cast -pt would benefit from BAND REAMER MACHINE OPERATOR services Closed displaced fracture of proximal phalanx [...] Overview (02/08/2023): CTR 01/25/23 Assessment & Plan (08/20/2025 12:40 PM EDT): - s/p left carpal tunnel release on 01/25/23 (left distal radius ORIF at the same time) - she completed PT/OT - her symptoms are recurring; will refer to orthopedist Assessment & Plan (11/21/2024 12:23 PM EST): [...] Plan (12/24/2023 5:49 AM EST): Following with [facility] Lineman, last seen in Jun 2023 -Patient was Prescribed Baclofen as visit - continue baclofen - continue lidoderm patches - continue Diclofenac gel - continue acetaminophen prn - judiciously use Ibuprofen/Motrin/Naproxen - continue Gabapentin - recommended to contact [facility] regarding MRI Scheduling - Lineman is planning to place a Peripheral Nerve Stimulator after MRI Scan Assessment & Plan (04/30/2023 7:37 PM EDT): Following with [facility] Lineman, last seen on 04/02/23 -Patient was Prescribed Baclofen as visit - continue baclofen - continue lidoderm patches - continue Diclofenac gel - continue acetaminophen prn - judiciously use Ibuprofen/Motrin/Naproxen - continue Gabapentin - recommended to contact [facility] regarding MRI Scheduling - Lineman is planning to place a Peripheral Nerve Stimulator after MRI Scan Irritable bowel syndrome 08/17/2015 Assessment & Plan (11/11/2024 12:37 PM EST): -following with [facility] GI, last seen in Oct 2023 -prescribed simethicone, metoclopramide, and Linzess -continue current treatment plan per GI Assessment & Plan (12/24/2023 5:46 AM EST): -following with [facility] GI, last seen in Oct 2023 -prescribed simethicone, metoclopramide, and Linzess -continue current treatment plan per GI Assessment & Plan (02/18/2023 7:30 AM EDT): -following with [facility] GI, last seen in Oct 2022 -prescribed [...] Assessment & Plan (11/21/2024 12:25 PM EST): -Provider Relations Rep: [facility], last visit in 01/22/24 -referred to orthopedist and touch up painter -previously taking hydroxychloroquine for possible inflammatory arthritis (Hx LAZARO and RF positive), and it was discontinued by new rent and housing investigator -Patient was interested in CBD treatment previously -Pt has tried physical therapies several times, and currently practicing it at home -patient is attending acupuncture. Encouraged to continue -Encouraged to try Taichi and Yoga as recommended -Decrease gabapentin from 600 to 400 mg tid Assessment & Plan (07/26/2024 6:57 AM EDT): -Provider Relations Rep: [facility], last visit in 01/22/24 -referred to orthopedist and touch up painter -previously taking hydroxychloroquine for possible inflammatory arthritis (Hx LAZARO and RF positive), and it was discontinued by new rent and housing investigator -Patient was interested in CBD treatment previously -Pt has tried physical therapies several times, and currently practicing it at home -patient is attending acupuncture. Encouraged to continue -Encouraged to try Taichi and Yoga as recommended Assessment & Plan (03/18/2024 9:37 AM EDT): -Provider Relations Rep: [facility], last visit in 01/22/24 -referred to orthopedist and touch up painter -previously taking hydroxychloroquine for possible inflammatory arthritis (Hx LAZARO and RF positive), and it was discontinued by new rent and housing investigator -Patient was interested in CBD treatment previously -Pt has tried physical therapies several times -patient is attending acupuncture. -Encouraged to try Taichi and Yoga as recommended -Cont attending Acupuncture, since doing well. Assessment & Plan (12/24/2023 5:50 AM EST): -Provider Relations Rep: [facility], last visit in 01/18/23 -referred to orthopedist and touch up painter -previously taking hydroxychloroquine for possible inflammatory arthritis (Hx LAZARO and RF positive), and it was discontinued by new rent and housing investigator -Patient was interested in CBD treatment previously -Pt has tried physical therapies several times -patient is attending acupuncture. -Encouraged to try Taichi and Yoga as recommended -Cont attending Acupuncture, since doing well. Assessment & Plan (04/23/2023 11:54 AM EDT): -Provider Relations Rep: [facility], last visit in 01/18/23 -Discontinued Plaquenil -referred to orthopedist and touch up painter -still taking hydroxychloroquine for possible inflammatory arthritis (Hx LAZARO and RF positive) -Patient was interested in CBD treatment previously -Pt has tried physical therapies several times -patient is attending acupuncture. -Encouraged to try Taichi and Yoga as recommended -Cont attending Acupuncture, since doing well. Assessment & Plan (02/08/2023 1:19 PM EDT): -Provider Relations Rep: [facility], last visit in 01/18/23 -Discontinued Plaquenil -referred to orthopedist and touch up painter -still taking hydroxychloroquine for possible inflammatory arthritis (Hx LAZARO and RF positive) -Patient was interested in CBD treatment previously -Pt has tried physical therapies several times -patient is attending acupuncture. -Encouraged to try Taichi and Yoga as recommended -Cont attending Acupuncture, since doing well. Chronic type B viral hepatitis (CMS/HCC) 014 Assessment & Plan (08/20/2025 12:48 PM EDT): - Hepatitis E antibody reactive, [...] prior to next visit Assessment & Plan (05/13/2025 7:30 PM EDT): [...] Behavioral health service provider: Dr. Jose Luis HERNANDEZ Continue current medication and treatment plan per Dr. Amaya Asthma 02/19/2014 Assessment & Plan (08/20/2025 12:41 PM EDT): - Seen by her suture gauger in Aug 2015. - well-controlled recently - currently on mometasone (Asmanex) for maintenance - Consider SMART with either Symbicort or Dulera - continue montelukast - continue albuterol HFA and DuoNeb prn as rescue. - consider another pulmonary fxn test Assessment & Plan (05/25/2025 6:13 AM EDT): - Seen by her suture gauger in Aug 2015. - well-controlled recently - [...] 12:36 PM EST): - Seen by her suture gauger in Aug 2015. - well-controlled recently - change Flovent to Asmanex - continue montelukast - continue albuterol HFA and DuoNeb prn as rescue. - consider another pulmonary fxn test or sleep study if pt continue to has dyspnea - follow up in 3-4 mo Assessment & Plan (07/22/2024 9:56 AM EDT): - Seen by her suture gauger in Aug 2015. - well-controlled recently - change Flovent to Asmanex - continue montelukast - continue albuterol HFA and DuoNeb prn as rescue. - consider another pulmonary fxn test or sleep study if pt continue to has dyspnea - follow up in 3-4 mo Assessment & Plan (03/18/2024 9:25 AM EDT): - Seen by her suture gauger in Aug 2015. - well-controlled recently - change Flovent to Asmanex - continue montelukast - continue albuterol HFA and DuoNeb prn as rescue. - consider another pulmonary fxn test or sleep study if pt continue to has dyspnea - follow up in 3-4 mo Assessment & Plan (12/24/2023 5:37 AM EST): - Seen by her suture gauger in Aug 2015. - well-controlled recently - change Flovent to Asmanex - continue montelukast - continue albuterol HFA and DuoNeb prn as rescue. - consider another pulmonary fxn test or sleep study if pt continue to has dyspnea - follow up in 3-4 mo Assessment & Plan (04/30/2023 7:31 PM EDT): - Seen by her suture gauger in Aug 2015. - well-controlled recently - continue Flovent to 2 puff twice daily and Singulair as maintenance. - continue albuterol HFA and DuoNeb prn as rescue. - consider another pulmonary fxn test or sleep study if pt continue to has dyspnea - follow up in 3-4 mo Assessment & Plan (02/08/2023 1:35 PM EDT): Seen by her suture gauger in Aug 2015. increase Flovent to 2 puff twice daily and Singulair as maintenance. Continue albuterol HFA and DuoNeb prn as rescue. -consider another pulmonary fxn test or sleep study if pt continue to has dyspnea Allergic rhinitis 02/19/2014 Assessment & Plan (05/25/2025 6:10 AM EDT): - continue montelukast and cetirizine - Patient was started following with petroleum supply specialist due to multiple hypersensitivity reactions Assessment & Plan (12/24/2023 5:54 AM EST): - continue montelukast and antihistamine Constipation 08/15/2013 Assessment & Plan (05/13/2025 7:31 PM EDT): Following with [facility] GI Fiber rich diet Continue Dulcolax and Linzess Assessment & Plan (11/11/2024 12:36 PM EST): Following with [facility] GI Fiber rich diet Continue Dulcolax and Linzess Assessment & Plan (12/24/2023 5:45 AM EST): Following with [facility] GI Fiber rich diet Continue Dulcolax and [...] Plan (05/13/2025 10:11 AM EDT): -Following with [facility] GI, last seen in Oct 2023 -Continue Dexilant as prescribed by GI Assessment & Plan (11/11/2024 12:37 PM EST): -Following with [facility] GI, last seen in Oct 2023 -Continue Dexilant as prescribed by GI Assessment & Plan (12/24/2023 5:46 AM EST): -Following with [facility] GI, last seen in Oct 2023 -Continue Dexilant as prescribed by GI Assessment & Plan (02/18/2023 7:29 AM EDT): -Following with [facility] GI, last seen in Oct 2022 -Continue [...] Encounters Date Type Department Care Team Description 09/17/2025 9:00 AM EST Office Visit [facility] [address] [place] [address] Elzbieta Wells MD Fibromyalgia (Primary Dx); Generalized anxiety disorder 09/17/2025 Travel 09/15/2025 9:00 AM EST Office Visit [facility] [address] [place] [address] Elzbieta Wells MD Fibromyalgia (Primary Dx); Generalized anxiety disorder 09/15/2025 Refill [facility] [address] [place] [address] Maryana Winkler MD 09/15/2025 Travel 09/14/2025 Refill [facility] [address] [place] [address] Maryana Winkler MD 08/30/2025 Refill [facility] [address] [place] [address] Maryana Winkler MD 08/27/2025 9:00 AM EDT Office Visit [facility] [place] [address] Elzbieta Wells MD Fibromyalgia (Primary Dx); Generalized anxiety disorder 08/27/2025 Travel 08/18/2025 9:00 AM EDT Office Visit [facility] [place] [address] Elzbieta Wells MD Fibromyalgia (Primary Dx); Generalized anxiety disorder 08/18/2025 Travel 08/12/2025 10:15 AM EDT Office Visit [facility] [place] [address] Maryana Winkler MD Carpal tunnel syndrome of left wrist (Primary Dx); Encounter for immunization; Mild intermittent asthma without complication; Chronic pain of both shoulders; Chronic neck pain; Rotator cuff tear arthropathy of right shoulder; Numbness and tingling in right hand; Numbness and tingling in left hand; Transaminitis; Chronic type B viral hepatitis (CMS/HCC) (HCC); Discoloration of skin 08/12/2025 Travel 08/11/2025 9:00 AM EDT Office Visit [facility] [place] [address] Elzbieta Wells MD Fibromyalgia (Primary Dx); Generalized anxiety disorder 08/11/2025 Telephone [facility] [place] [address] Maryana Winkler MD chart prep 08/11/2025 Travel 08/07/2025 Refill [facility] [place] [address] Maryana Winkler MD 08/03/2025 9:00 AM EDT Office Visit [facility] [place] [address] Elzbieta Wells MD Fibromyalgia (Primary Dx); Generalized anxiety disorder 08/03/2025 Travel 07/30/2025 9:00 AM EDT [address] [facility] [place] [address] Elzbieta Wells MD Fibromyalgia (Primary Dx); Generalized anxiety disorder 07/30/2025 Travel 07/27/2025 9:00 AM EDT Office Visit [facility] [address] [place] [address] Elzbieta Wells MD Fibromyalgia (Primary Dx); Generalized anxiety disorder 07/27/2025 Travel 07/23/2025 9:00 AM EDT Office Visit [facility] [address] [place] [address] Elzbieta Wells MD Fibromyalgia (Primary Dx); Generalized anxiety disorder 07/23/2025 Travel 07/20/2025 9:00 AM EDT Office Visit [facility] [address] [place] [address] Elzbieta Wells MD Fibromyalgia (Primary Dx); Generalized anxiety disorder 07/20/2025 Travel 07/16/2025 9:00 AM EDT Office Visit [facility] [address] [place] [address] Elzbieta Wells MD Fibromyalgia (Primary Dx); Generalized anxiety disorder 07/16/2025 Travel from Last 3 Months Immunizations Immunization [...] Visit [facility] [address], [place] [phone] [place], [place] [address] [place] [address] Health Maintenance Due Date Last Done Comments CT Colonography 1964 FIT DNA/Cologuard 1965 FIT 1965 FOBT 1965 Sigmoidoscopy 1965 RSV Patients and Patients Aged 60 years or older (1 - Risk 50-74 years 1-dose series) 2014 Pap Smear 01/16/2025 01/16/2022 COVID-19 Vaccine ( [...] X-Ray: Full Mouth 04/10/2028 025, 03/16/2021, 09/29/2016 Lipid Panel 07/22/2029 07/22/2024, 05/0 05/2024, 02/08/2023, Additional history exists DTaP/Tdap/Td Vaccines (3 - Td or Tdap) [...] ELASTOGRAPHY Routine 07/14/2025 8:43 AM EDT Transaminitis HM MAMMOGRAPHY Routine 04/27/2025 8:52 AM EDT PROPHYLAXIS - ADULT Routine 04/09/2025 1 1:00 AM EDT Dental plaque Missing teeth, acquired Localized gingival recession INTRAORAL - COMPLETE SERIES OF RADIOGRAPHIC IMAGES Routine 04/09/2025 11:00 AM EDT Dental plaque Missing teeth, acquired Localized gingival recession PERIODIC ORAL EVALUATION - ESTABLISHED PATIENT Routine 04/09/2025 11:00 AM EDT LIPID PANEL WITH REFLEX TO DIRECT LDL Routine 07/22/2024 10:19 AM EDT Fatigue, unspecified type THINPREP IMAGING PAP AND HPV MRNA E6/E7, [...] * Referral to Allergy (07/29/2025) us Yanni GAR OUTPATIENT REFERRAL ORDERABLES F inal Result * US Abdomen Comp w elastography (07/14/2025 8:43 AM EDT) Anatomical Region Laterality Modality Abdomen Ultrasound 07/14/2025 8:43 AM EDT Narrative 07/14/2025 11:37 AM EDT [place] [address] Ultrasound Report Signed Patient: Tiffany Vergara MR#: [id number] 91 : 1965 Acct:[id number] Age/Sex: 60 / F ADM Date: 07/14/25 Loc: HO.US Attending Dr: Maryana Winkler MD Ordering Physician: Maryana Winkler MD Date of Service: 07/14/25 Procedure(s): US abdomen comp w elastography Accession Number(s): [id number] cc: Maryana Winkler MD Reason for Exam: transaminitis, Hep B EXAMINATION: US COMPLETE ABDOMEN WITH LIVER ELASTOGRAPHY CLINICAL INFORMATION: transaminitis, Hep B COMPARISON: CT on May 26, 2024 TECHNIQUE: Real-time imaging of the abdominal viscera. Noninvasive ultrasound liver fibrosis assessment is performed using Albert ElastPQ point quantification shear wave elastography (pSWE) [...] 07/14/25 1134 DD/ 0843 TD/TT: 07/14/25 0916 Tailor'S Aide: Procedure Note Donotuseinterpreter, Image - 07/14/[address] [address] Ultrasound Report Signed Patient: Tiffany Vergara MMR#: [id number] 91 : 1965Acct:[id number] Age/Sex: 60 / FADM Date: 07/14/25 Loc: HO.US Attending Dr: Maryana Winkler MD Ordering Physician: Maryana Winkler MD Date of Service: 07/14/25 Procedure(s): US abdomen comp w elastography Accession Number(s): [id number] cc: Maryana Winkler MD Reason for Exam: transaminitis, Hep B EXAMINATION: US COMPLETE ABDOMEN WITH LIVER ELASTOGRAPHY CLINICAL INFORMATION: transaminitis, Hep B COMPARISON: CT on May 26, 2024 TECHNIQUE: Real-time imaging of the abdominal viscera. Noninvasive ultrasound liver fibrosis assessment is performed using Albert ElastPQ point quantification shear wave elastography (pSWE) [...] 07/14/25 1134 DD/ 0843 TD/TT: 07/14/25 0916 Tailor'S Aide: Maryana Winkler MD IM US PROCEDURES Final Result * Hm Mammography (04/27/2025 8:52 AM EDT) Anatomical Region Laterality Modality Other Historical Provider HEALTH MAINTENANCE Final Result * (ABNORMAL) Lipid Panel with Reflex to Direct LDL (07/22/2024 10:19 AM EDT) Triglycerides 70 <150 mg/dL [facility] Comment:Desirable Triglyceri de: less than 150 mg/dLBorderline High Triglyceride 150-199 mg/dLHigh Triglyceride: 200-499 mg/dLVery High Triglyceride: greater than or equal to 5OO mg/dL Cholesterol 248(H) <200 mg/dL [facility] Comment:Desirable Cholestero l: less than 200 mg/dLBorderline High Cholesterol: 200-239 mg/dLHigh Cholesterol: greater than 239 mg/dL LDL Cholesterol Calculated 140(H) <100 mg/dL [facility] Comment:Desirable LDL: less than 100 mg/dLNear Optimal/Above Optimal LDL: 110- 129 mg/dLBorderline High LDL: 130-159 mg/dLHigh LDL: 160-189 mg/dLVery High LDL: greater than or equal to 190 mg/dL HDL Cholesterol 94 >40 mg/dL [facility] Comment:Desirable HDL: great er than 40 mg/dL Note: This HDL assay may give artificially low results in patients with liver disease. Blood 07/22/2024 10:1 9 AM EDT 07/22/2024 11:09 AM EDT Maryana Winkler MD LAB BLOOD ORDERABLES Final Resul t [facility] [address] [place] [phone] * THINPREP TIS PAP AND HPV mRNA E6/E7, CT/NG, TRICH (01/16/2022 1:29 PM EST) Chlamydia trachomatis RNA, TMA, Urogenital NOT DETECTED NOT DETECTED [facility] Clinical Information: None given [facility] COMMENT SEE COMMENT [facility] Comment: The analytical performance characteristics of this assay, when used to test SurePath(TM) specimens have been determined by [employer]. The modifications have not been cleared or approved by the FDA. This assay has been validated pursuant to the CLIA regulations and is used for clinical purposes. For additional information, please refer to https://education.NG [employer]vant[employer]/faq/FIX673 (This link is being provided for information/ [...] been evaluated with computer assisted technology. [facility] International Controller: SEE COMMENT [facility] Comment: RXB, CT(ASCP) CT screening location: [place] [address] HPV nRNA E6/E7 Not Detected Not Detected [facility] Comment: Methodology: Gun Numberer-Mediated Amplification This assay detects E6/E7 viral messenger RNA (mRNA) from 14 high-risk HPV types (16,18,31,33,35,39,45,51,52,56,58,59,66,68). The analytical performance characteristics of this assay have been determined by [employer]. The modifications have not been cleared or approved by the FDA. This assay has been validated pursuant to the CLIA regulations and is used for clinical purposes. For additional information, please refer to http://.[employer]/faq/VOP969k3 (This link if provided for information/ educational [...] LAB SYSTEM Statement Of Adequacy: SEE COMMENT [facility] Comment: Satisfactory for evaluation. Endocervical/transformation zone component absent. Age and/or menstrual status not provided Trichomonas vaginalis, QL, TMA, PAP Vial NOT DETECTED NOT DETECTED [facility] Comment: The analytical performance characteristics of this assay have been determined by [employer]. The modifications have not been cleared or approved by the FDA. This assay has been validated pursuant to the CLIA regulations and is used for clinical purposes. For additional information, please refer to http://education.[employer]/ faq/Trichomonastma (This link is being provided for information/ educational purposes only.) 01/16/2022 1:29 PM EST us Maryana Winkler MD LAB PATHOLOGY ORDERABLES Final R esult Performing Organization Address [facility] de Phone Number [facility] [address] [place] [address], * HEPATITIS C AB W/REFL TO HCV RNA, QN, PCR (10/24/2021 8:20 AM EST) HEPATITIS C ANTIBODY NON-REACT IMTIAZ NON-REACT IMTIAZ [facility] INDEX 0.02 <1.00 [facility] Comment: HCV antibody was non-reactive. There is no laboratory evidence of HCV infection. In most cases, no further action is required. However, if recent HCV exposure is suspected, a test for HCV RNA (test code 33071) is suggested. For additional information please refer to [email or web address]/faq/LAE12g1 (This link is being provided for informational/ educational purposes only.) 10/24/2021 8:20 AM EST us Maryana Winkler MD HISTORICAL/NON ORDERABLE LABS Fi nal Result Performing Organization Address [facility] de Phone Number [facility] [address] [place] [address], * HIV 1/2 ANTIGEN/ANTIBODY,FOURTH GENERATION W/RFL (10/24/2021 8:20 AM EST) HIV-1/2 ANTIGEN AND ANTIBODIES, 4TH GENERATION W/ REFLEX NON-REACT IMTIAZ NON-REACT IMTIAZ [facility] Comment: HIV-1 antigen and HIV-1/HIV-2 [...] purpose. For additional information please refer to [email or web address]/faq/OQQ083 (This link is being provided for informational/ educational purposes only.) The performance of this assay has not been clinically validated in patients less than 2 years old. 10/24/2021 8:20 AM EST Maryana Winkler MD LAB BLOOD ORDERABLES Final Resul t [facility] [address] [place] [phone], * (ABNORMAL) Colonoscopy (2016) Colonoscopy Normal(A) Normal 2016 Estee Smith [facility] MAINTENA[facility]CE Edited Result - Final from Last 3 Months or Most Recently Relevant to Health Maintenance Insurance FOR[facility]LY [facility] < 65 MELISSA JARRETT [id number] Advance Directives Documents on File Type Date Recorded Patient Piano Player Expl anation HealthCare Proxy 03/12/2023 Health Care Proxy Form Care Teams Inside Sales Engineer Relationship Specialty Start Date End Date Maryana Winkler MD [address] [place] [phone] PCP - General Family Medicine 11/12/18
--- OUTSIDE RECORDS SUMMARY | 2025-09-30 17:24 | XMS_ITS | Encounter Summary ---
Author Organization [employer] Address [address] [place] [address] [address]t [place] [address] Care Team Providers Care Orange Grower Name Role Phone Maryana Winkler MD Primary Care Provider [phone] Encounter Details Date Type Department Care Team (Latest Contact Info) Description 03/16/2021 Abstract [facility] Dental, Provider, DDS Social History Tobacco [...] 8:00 AM EST Office Visit [facility] ADULT DENTAL [address] [place] [address] Carl [place] [address] [place] [address] documented as of this encounter Visit Diagnoses Not on filedocumented in this encounter Care Teams Orange Grower Relationship Specialty Start Date End Date Maryana Winkler MD [address] [place] [address] PCP - General Family Medicine 11/12/18 documented as of this encounter
--- OUTSIDE RECORDS SUMMARY | 2025-09-30 17:24 | XMS_ITS | Encounter Summary ---
Author Organization [employer] Address [address] [place] [address] 7t [place] [address] Care Team Providers Care Property Specialist Name Role Phone Maryana Winkler MD Primary Care Provider [phone] Encounter Details Date Type Department Care Team (Late st Contact Info) Description 07/17/2023 Abstract [facility] MEDIC[facility] [address] [place], [place] [phone] Maryana Winkler MD [address] [place], [place] [phone] Social History Tobacco Use Types Packs/Day Years [...] Description 10/21/2025 8:00 AM EST Office Visit [facility] ADULT DENTAL [address] [place], [place] [phone] Enid Henry [address] [place] [address] documented as of this encounter Visit Diagnoses Not on filedocumented in this encounter Additional Health Concerns Assessment Noted Time PHQ-9 Depression Total Score: 4 12/14/19 23 9:31 AM EST documented as of this encounter Care Teams Property Specialist Relationship Specialty Start Date End Date Maryana Winkler MD [address] [place] [address] PCP - General Family Medicine 11/12/18 documented as of this encounter
--- OUTSIDE RECORDS SUMMARY | 2025-09-30 17:24 | XMS_ITS | Encounter Summary ---
Author Organization [employer] Address [address] [place] [address] [address]t [place] [address] Care Team Providers Care Quality Engineer Name Role Phone Maryana Winkler MD Primary Care Provider [phone] Encounter Details Date Type Department Care Team (Latest Contact Info) Description 03/27/2019 Abstract [facility] Dental, Provider, DDS Social History Tobacco [...] Description 10/21/2025 8:00 AM EST Office Visit [facility] [address] [place] [address] Carl, En[place] [address] [place] [address] documented as of this encounter Visit Diagnoses Not on filedocumented in this encounter Care Teams Quality Engineer Relationship Specialty Start Date End Date Maryana Winkler MD [address] [place] [address] PCP - General Family Medicine 11/12/18 documented as of this encounter
--- OUTSIDE RECORDS SUMMARY | 2025-09-30 17:24 | XMS_ITS | Encounter Summary ---
Author Organization [employer] Address [address] [place] [address] 7t [place] [address] Care Team Providers Care Movie Extra Name Role Phone Maryana Winkler MD Primary Care Provider [phone] Encounter Details Date Type Department Care Team (Late st Contact Info) Description 05/23/2023 Orders Only [facility] MEDICINE [address] [place], [place] [phone] Provider, MD Cristopher Social History Tobacco Use [...] Description 10/21/2025 8:00 AM EST Office Visit [facility] ADULT DENTAL [address] [place], [place] [phone] Werner Henryaris [address] [place] [address] documented as of this encounter Procedures Procedure [...] EST) Vitamin D, 25-OH, D2 6 ng/mL [facility] Comment:This test was develo ped and its analytical performancecharacteristics have been determined by [employer] [place], [place]. It hasnot been cleared or approved by the U.S. Food and DrugAdministration. This assay has been validated pursuantto the CLIA regulations and is used for clinicalpurposes.THIS TEST WAS PERFORMED AT:[employer]/[address] [id number] [place] [address]YLALYVE W. MASON,MD,PHD Vitamin D, 25-OH, D3 20 ng/mL [facility] Comment:This test was develo ped and its analytical performancecharacteristics have been determined by [employer] [place], [place]. It hasnot been cleared or approved by the U.S. Food and DrugAdministration. This assay has been validated pursuantto the CLIA regulations and is used for clinicalpurposes. Vitamin D, 25-OH, Total 26(A) 30 - 100 ng/mL [facility] Comment:Vitamin D, 25-Hydrox y reports concentrations [...] = 30 ng/mL.For additional information, please refer tohttp://[employer]ach/faq/LDB050(This link is being provided for informational/educational purposes only.) 01/16/2024 8:44 AM EST 01/16/2024 11:23 AM EST us Generic External Data Provider LAB BLOOD ORDERAB LES Final Result Performing Organization Address City/[facility]/ZIP Co de Phone Number [facility] [address] [place] [phone] * Urine electrolytes (12/20/2023 10:49 PM EST) Chloride Urine Random <20.0 mmol/L [facility] Sodium Urine Random 44.0 mmol/L [facility] Potassium Urine Random 7.7 mmol/L [facility] 12/20/2023 10:4 9 PM EST 12/20/2023 10:53 PM EST us Generic External Data Provider LAB URINE ORDERAB LES Final Result Performing Organization Address City/[facility]/ZIP Co de Phone Number [facility] [address] [place] [phone] * Urinalysis w/reflex microscopic (12/20/2023 10:49 PM EST) Color Urine Yellow [facility] Appearance Urine Clear [facility] PH 8.0 5.0 - 9.0 [facility] Glucose Urine UA Negative Negative mg/dL [facility] Urine Blood Negative Negative [facility] Specific Ubly - Urine 1.010 1.005 - 1.025 [facility] Urine Protein Negative Neg-Trace mg/dL [facility] Urine Ketones Negative Negative mg/dL [facility] Nitrite Urine Negative Negative [facility] Leukocyte Esterase Urine Negative Negative [facility] 12/20/2023 10:4 9 PM EST 12/20/2023 10:53 PM EST Narrative [facility] - 12/20/2023 10:56 PM EST [id number], Clean Catch Generic External Data Provider LAB URINE ORDERAB LES Final Result Performing Organization Address [facility]/ZIP Co de Phone Number [facility] [address] [place] [phone] * Electrolyte Panel (12/20/2023 10:40 PM EST) Sodium 139 135 - 145 mmol/L [facility] Potassium 3.4 3.3 - 5.1 mmol/L [facility] Chloride 103 96 - 108 mmol/L [facility] Carbon Dioxide 27 22 - 29 mmol/L [facility] Anion Gap 12 12 - 20 [facility] 12/20/2023 10:4 0 PM EST 12/20/2023 10:43 PM EST us Generic External Data Provider LAB BLOOD ORDERAB LES Final Result Performing Organization Address [facility]/ZIP Co de Phone Number [facility] [address] [place] [phone] * Magnesium (12/20/2023 4:46 PM EST) Magnesium 2.1 1.6 - 2.6 mg/dL [facility] 12/20/2023 4:46 PM EST 12/20/2023 4:49 PM EST us Generic External Data Provider LAB BLOOD ORDERAB LES Final Result [facility] [address] [place] [phone] * (ABNORMAL) Comprehensive Metabolic Panel (12/20/2023 4:46 PM EST) Sodium 136 135 - 145 mmol/L [facility] Potassium 2.6(LL) 3.3 - 5.1 mmol/L [facility] Comment:Critical value for t est(s): POTS Results called to and readback by: JAYLAN Person calling: JATINDER Date: 12/20/23 Time:1707 Chloride 98 96 - 108 mmol/L [facility] Carbon Dioxide 28 22 - 29 mmol/L [facility] Anion Gap 13 12 - 20 [facility] Urea Nitrogen (BUN) 10 9 - 16 mg/dL [facility] Creatinine, Serum 0.84 0.5 - 1.4 mg/dL [facility] Creatinine Clr Calc Pharmacy 49.1 [facility] Comment:Provided height and weight: 149.86 cm,49.5 kg.eGFR (calculated from the MDRD study equation) and eCrCl(calculated from the Cockcroft-Gault equation) are based ondifferent parameters and may not yield comparable results.If eCrCl result is absurd, please check patient'sheight/weight. Estimated Glomerular Filt Rate >60 [facility] Comment:NOTE: For -Am erican individuals, multiply the result by 1.210.Chronic Kidney Disease: Estimated GFR < 60 mL/min/1.95s4Lwelzg Kidney Disease: Estimated GFR < 15 mL/min/1.73m2 Glucose 155(H) 60 - 115 mg/dL [facility] Calcium 9.2 8.4 - 10.2 mg/dL [facility] Bilirubin, Total 0.4 0.0 - 1.0 mg/dL [facility] Aspartate Amino Transferase 24 5 - 31 U/L [facility] Alanine Aminotransferase 14 0 - 31 U/L [facility] Total Protein 7.3 6.5 - 8.0 g/dL [facility] Albumin Level 4.1 3.5 - 5.0 g/dL [facility] Alkaline Phosphatase 72 39 - 117 U/L [facility] 12/20/2023 4:46 PM EST 12/20/2023 4:49 PM EST us Generic External Data Provider LAB BLOOD ORDERAB LES Final Result [facility] [address] [place] [phone] * (ABNORMAL) CBC auto differential (12/20/2023 4:46 PM EST) White Blood Count 6.9 4.8 - 10.8 X10*3/uL [facility] Red Blood Count 4.79 4.20 - 5.50 X10*6/uL [facility] Hemoglobin 14.7 12.0 - 16.0 g/dl [facility] Hematocrit 41.3 37.0 - 47.0 % [facility] Mean Corpuscular Volume 86.2 80.0 - 98.0 fL [facility] Mean Corpuscular Hemoglobin 30.7 27.0 - 33.0 pg [facility] Mean Corpuscular HGB Conc 35.6(H) 31.0 - 35.0 g/dl [facility] Red Cell Distribution Width 12.7 11.0 - 16.0 % [facility] Platelet Count 158(L) 160 - 400 X10*3/uL [facility] Mean Platelet Volume 9.4 9.4 - 12.3 fL [facility] Neutrophils Percent Auto 57.1 45 - 73 % [facility] Imm Gran Pct Auto 0.1 0.0 - 0.4 % [facility] Lymphocytes Percent Auto 33.5 20 - 40 % [facility] Monocytes Percent Auto 6.8 2 - 11 % [facility] Eosinophils Percent Auto 1.9 0 - 4 % [facility] Basophils Percent Auto 0.6 0 - 2 % [facility] NRBC Pct Auto 0.0 0.0 - 0.2 /100WBC [facility] Neutrophils Absolute Auto 4.0 2.0 - 8.3 x10*3/uL [facility] Imm Gran Abs Auto 0.01 0.00 - 0.03 X10*3/uL [facility] Lymphocytes Absolute Auto 2.3 1.2 - 4.9 X10*3/uL [facility] Monocytes Absolute Auto 0.5 0.1 - 1.2 X10*3/uL [facility] Eosinophils Absolute Auto 0.1 0.0 - 0.4 X10*3/uL [facility] Basophils Absolute Auto 0.0 0.0 - 0.2 X10*3/uL [facility] NRBC Abs Auto 0.000 0.0 - 0.012 X10*3/uL [facility] 12/20/2023 4:46 PM EST 12/20/2023 4:49 PM EST us Generic External Data Provider LAB BLOOD ORDERAB LES Final Result Performing Organization Address City/State/[facility] Co de Phone Number [facility] [address] [place] [phone] * US Abdomen Complete (05/23/2023 9:54 AM EDT) Anatomical Region Laterality Modality Abdomen Ultrasound 05/23/2023 9:54 AM EDT Narrative 05/26/2023 12:12 PM EDT [address] [address] Ultrasound Report Signed Patient: Tiffany Vergara MR#: [id number] [birth year] : 1965 Acct:[id number] Age/Sex: 58 / F ADM Date: 05/23/23 Loc: HO.US Attending Dr: Maryana Winkler MD Ordering Physician: Maryana Winkler MD Date of Service: 05/23/23 Procedure(s): US abdomen complete Accession Number(s): [id number] cc: Maryana Winkler MD EXAMINATION: US ABDOMEN [...] in OV> 05/26/23 1209 DD/ 0954 TD/TT: Chemical Laboratory Scientist: SS Procedure Note Donotuseinterpreter, Image - 05/26/2023 [place] [address] Ultrasound Report Signed Patient: Tiffany Vergara MMR#: [id number] 91 : 1965Acct:[id number] Age/Sex: 58 / FADM Date: 05/23/23 Loc: HO.US Attending Dr: Maryana Winkler MD Ordering Physician: Maryana Winkler MD Date of Service: 05/23/23 Procedure(s): US abdomen complete Accession Number(s): [id number] cc: Maryana Winkler MD EXAMINATION: US ABDOMEN [...] in OV> 05/26/23 1209 DD/ 0954 TD/TT: Chemical Laboratory Scientist: [facility] External Provider IMG US PROCEDURES Edited Result - Final * Hm Mammography (04/03/2023) Anatomical Region Laterality Modality Other Historical Provider HEALTH MAINTENANCE Final Result documented in this encounter Visit Diagnoses Not on filedocumented in this encounter Additional Health Concerns Assessment Noted Time PHQ-9 Depression Total Score: 4 12/14/19 23 9:31 AM EST documented as of this encounter Care Teams Movie Extra Relationship Specialty Start Date End Date Maryana Winkler MD [address] [place] [phone] PCP - General Family Medicine 11/12/18 documented as of this encounter
== END 2025-09-30 09:49 | disposition home or self-care (01) ==
LOC: HO.HSM 09:27
PROVIDERS: PCP Family Medicine; Visit Provider Nurse Practitioner
DX: G43.009 Migraine without aura, not intractable, without status migrainosus (principal)
CPT/HCPCS: 99213

== ENCOUNTER → 2025-09-30 09:27 | Outpatient (BNVA) | payer OTHER, SELFPAY | PROVIDERS: PCP Family Medicine; Visit Provider Nurse Practitioner | DX: G43.009 Migraine without aura, not intractable, without status migrainosus (principal) | CPT/HCPCS: 99212 ==

== ENCOUNTER 2025-11-09 13:21 | Outpatient (REF) | payer OTHER, SELFPAY ==
--- NOTE | ~2025-11-09 | XR_ITS ---
EXAMINATION: XR SHOULDER, IRON 2V CLINICAL INFORMATION: M25.511 - Pain in right shoulder COMPARISON: Right shoulder 07/22/2024. Left shoulder 10/20/2021. TECHNIQUE: AP and Y views of each shoulder were obtained. FINDINGS: RIGHT SHOULDER: Normal bone mineralization. No fracture, dislocation, or suspicious bone lesion. Normal alignment. The glenohumeral joint demonstrates mild degenerative arthritis. The AC joint demonstrates moderate spurring, predominantly superior surface. There is a type II acromion. No undersurface spurring. The subacromial space is preserved. Remainder of the soft tissue and bony structures appear normal. LEFT SHOULDER: Normal bone mineralization. No fracture, dislocation, or suspicious bone lesion. Normal alignment. The glenohumeral joint demonstrates mild degenerative arthritis. The AC joint demonstrates moderate spurring, predominantly superior surface. There is a 2 acromion. No undersurface spurring. The subacromial space is preserved. Remainder of the soft tissue and bony structures appear normal. XR/XR Shoulder Iron min 2V IMPRESSION: 1. No acute finding of either shoulder. 2. 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 3. 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 Electronically signed by: Peyman Panda MD 11/09/2025 02:29 PM [email or web address]
== END 2025-11-09 13:22 | disposition home or self-care (01) ==
LOC: HO.HOSX 13:21
PROVIDERS: PCP Family Medicine; Visit Provider Orthopaedic Surgery
DX: M25.312 Other instability, left shoulder (principal); M25.511 Pain in right shoulder
CPT/HCPCS: 73030

== ENCOUNTER 2025-11-09 13:21 | Outpatient (AMB) | payer OTHER, SELFPAY ==
[2025-11-09 13:27] VITALS: BMI 23.4
--- NOTE | 2025-11-09 13:27 | MHC.OFFVIS ---
Vital Signs 11/09/25 13:27 Height 4 ft 11 in Weight 116 lb BMI 23.4 Intake Visit Reasons: Newprob- Chronic Pain of both shoulders Intake Note: Tiffany is a 60 year old right hand dominant female who presents with complaints of progressively worsening bilateral shoulder pains and weakness, left greater than right. She describes her left shoulder pain as sharp and severe in nature. Most of the pain is along the lateral aspect of her left shoulder. The patient states that her symptoms have gotten worse over the last year in spite of continued non operative treatments. She has tried Tylenol and anti-inflammatory medicines which gave her minimal relief. She has failed the last 6 weeks of conservative treatment. She reports weakness when lifting her left hand above shoulder height. She has had injections and physical therapy in the past which gave her no relief. Allergies No Known Drug Allergies Allergy (Unknown, Verified 09/30/25 09:34) none Juan seeds Allergy (Uncoded 08/20/25 08:53) Anaphylaxis poppy seeds Allergy (Uncoded 08/20/25 08:53) Itching Medication List - Last Reconciled 11/09/25 by Rahul Brower MD albuterol sulfate 90 mcg/actuation 2 puffs inhalation Q6H PRN arm brace (Wrist Support One Size) As directed atogepant (Qulipta) 30 mg PO DAILY 30 days atorvastatin 40 mg PO DAILY bisacodyl 10 mg (2 x 5 mg) PO BEDTIME bupropion HCl XL 300 mg PO QAM buspirone 30 mg PO BEDTIME cholecalciferol (vitamin D3) (Vitamin D3) 50 mcg PO QAM [cock up splint wear on each wrist at night.] Dexilant (dexlansoprazole) 60 mg PO BEDTIME NS diclofenac sodium 1% 2 grams topical BID PRN dicyclomine 10 mg PO TID PRN docusate sodium 200 mg (2 x 100 mg) PO BEDTIME PRN duloxetine 60 mg PO BID fluticasone propionate 50 mcg/actuation 1 spray intranasal QAM PRN gabapentin mg PO hydroxyzine HCl 50 mg PO BEDTIME lidocaine 4% 1 patch topical DAILY PRN linaclotide (Linzess) 290 mcg PO QAM loratadine 10 mg PO DAILY magnesium oxide 400 mg PO QAM melatonin 3 mg PO BEDTIME PRN metoclopramide HCl 10 mg PO QID midodrine 10 mg PO TID 90 days mometasone 200 mcg/actuation (Asmanex HFA) 1 puff inhalation BID montelukast (Singulair) 10 mg PO DAILY neomycin-polymyxin B-dexameth 3.5mg/mL-10,000 unit/mL-0.1 % 1 drp ophthalmic (eye) QID prazosin 1 - 2 mg PO BEDTIME simethicone 180 mg PO QID sumatriptan succinate take 1 tab at onset of headache; if no relief, may repeat 1 tab after at least 2 hrs; max = 2 tabs/24 hrs PO topiramate 50 mg PO BID PFSH Medical History GERD (gastroesophageal reflux disease) Diverticulitis Bilateral carpal tunnel syndrome Polyarthralgia Fracture of proximal phalanx of right thumb Carpal tunnel syndrome of left wrist Distal radius fracture, left Asthma Hepatitis B Fibromyalgia Surgical History H/O breast surgery H/O reduction mammoplasty Hx of abdominoplasty (~2004) History of open reduction and internal fixation (ORIF) procedure (~02/2018) Hx of section (~1979) Hx of colonoscopy Family History Father Lung cancer Diabetes Hepatitis Brother Diabetes Lung cancer Sister Gastritis Social History Household Members: Family Housing: House Do you presently have visiting nurse or other home services: No Alcohol intake: never Patient Tobacco Use Status: Never used Tobacco e-Cigarette/Vaping Use: Never Used Advance Directives Date on File: 01/10/25 service: No Physical Exam Vital Signs: BMI result Body Mass Index 23.4 Const Other: Well-nourished well-developed very friendly female awake alert and oriented x3 in no acute distress Extrem Other: Left shoulder examination shows decreased range of motion when compared to her right shoulder, 4+ out of 5 strength with supraspinatus testing, positive impingement signs, no instability Results Reviewed Results Reviewed: X-rays of the patient's bilateral shoulder show severe acromioclavicular joint narrowing, type 3 acromion, no acute bony abnormality Assessment & Plan Assessment & Plan (1) Rotator cuff insufficiency of left shoulder: Code(s): M25.312 - Other instability, left shoulder Category: Medical Plan Ms. Vergara presents with progressively worsening left shoulder pain and weakness due to impingement syndrome and possible rotator cuff tearing. Thus, I will send the patient for an MRI of her left shoulder for further evaluation. I will see her back once the MRI is completed to discuss the findings and treatment options. Feel free to call me at any time should questions regarding her orthopedic management arise. Thank you very much for asking me to see this very friendly patient. I spent 20 minutes in reviewing the patient's records and imaging studies, seeing the patient and documenting in the medical record. Orders: Orders MR shoulder LT wo con 11/10/25 M25.312 - Other instability, left shoulder XR Shoulder Iron min 2V Today M25.511 - Pain in right shoulder, M25.512 - Pain in left shoulder Coding Level of Care Code New Pt Level 3 (67368) Add On Problem Visit Only Diagnoses Rotator cuff insufficiency of left shoulder M25.312
--- OUTSIDE RECORDS SUMMARY | 2025-11-09 15:24 | XMS_ITS | Encounter Summary ---
Author Organization [employer] Address [address] [facility] 7t [place] [address] Care Team Providers Care Electric Motor Repairing Supervisor Name Role Phone Maryana Winkler MD Primary Care Provider [phone] Encounter Details Date Type Department Care Team (Late st Contact Info) Description 11/09/2025 Orders Only [facility] External Provider, [facility] Social History Tobacco Use Types Packs/Day Years [...] Care Team (Late st Contact Info) Description 11/26/2025 10:15 AM EST Office Visit [facility] MEDICINE [address] [place] [address] Maryana Winkler MD [address] [place] [address] 04/22/2026 8:45 AM EDT Office Visit [facility] ADULT DENTAL [address] [place] [address] Enid Henry [address] [place] [address] documented as of this encounter Procedures Procedure Name Priority Date/Time Associated Diagnosis Comments XR SHOULDER 2+ VIEWS BILATERAL Routine 11/09/2025 1:26 PM EST documented in this encounter Results * XR Shoulder 2+ Views Bilateral (11/09/2025 1:26 PM EST) Anatomical Region Laterality Modality Upper Extremities, Shoulder Bilateral Radi ographic Imaging 11/09/2025 1:26 PM EST Narrative 11/09/2025 2:32 PM EST [facility] [address] [place] [address] XRay Report Signed Patient: Tiffany Vergara MR#: [id number] 91 : 1965 Acct:[id number] Age/Sex: 60 / F ADM Date: 11/09/25 Loc: HO.HOSX Attending Dr: Rahul Brower MD Ordering Physician: Rahul Brower MD Date of Service: 11/09/25 Procedure(s): XR Shoulder Brian min 2V Accession Number(s): [id number] cc: Rahul Brower MD; Maryana Winkler MD Reason for Exam: M25.511 - Pain in right shoulder EXAMINATION: XR SHOULDER, BRIAN 2V CLINICAL INFORMATION: M25.511 - Pain in right shoulder COMPARISON: Right shoulder 07/22/2024. Left shoulder 10/20/2021. TECHNIQUE: AP and Y views of each shoulder were obtained. FINDINGS: RIGHT SHOULDER: Normal bone mineralization. No fracture, dislocation, or suspicious bone lesion. Normal alignment. The glenohumeral joint demonstrates mild degenerative arthritis. The AC joint demonstrates moderate spurring, predominantly superior surface. There is a type II acromion. No undersurface spurring. The subacromial space is preserved. Remainder of the soft tissue and bony structures appear normal. LEFT SHOULDER: Normal bone mineralization. No fracture, dislocation, or suspicious bone lesion. Normal alignment. The glenohumeral joint demonstrates mild degenerative arthritis. The AC joint demonstrates moderate spurring, predominantly superior surface. There is a 2 acromion. No undersurface spurring. The subacromial space is preserved. Remainder of the soft tissue and bony structures appear normal. XR/XR Shoulder Brian min 2V IMPRESSION: 1. No acute finding of either shoulder. 2. 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 3. 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 Electronically signed by: Peyman Panda MD 11/09/2025 02:29 PM [facility] Dictated By: Peyman Panda MD Signed By: <Electronically signed by Peyman Panda MD in OV> 11/09/25 1429 DD/ 1326 TD/TT: 11/09/25 1333 Emergency Medical Tech: Procedure Note Donotuseinterpreter, Image - 11/09/2025 [facility] [address] [place] [address] XRay Report Signed Patient: Tiffany Vergara MMR#: [id number] 91 : 1965Acct:[id number] Age/Sex: 60 / FADM Date: 11/09/25 Loc: HO.HOSX Attending Dr: Rahul Brower MD Ordering Physician: Rahul Brower MD Date of Service: 11/09/25 Procedure(s): XR Shoulder Brian min 2V Accession Number(s): [id number] cc: Rahul Brower MD; Maryana Winkler MD Reason for Exam: M25.511 - Pain in right shoulder EXAMINATION: XR SHOULDER, BRIAN 2V CLINICAL INFORMATION: M25.511 - Pain in right shoulder COMPARISON: Right shoulder 07/22/2024. Left shoulder 10/20/2021. TECHNIQUE: AP and Y views of each shoulder were obtained. FINDINGS: RIGHT SHOULDER: Normal bone mineralization. No fracture, dislocation, or suspicious bone lesion. Normal alignment. The glenohumeral joint demonstrates mild degenerative arthritis. The AC joint demonstrates moderate spurring, predominantly superior surface. There is a type II acromion. No undersurface spurring. The subacromial space is preserved. Remainder of the soft tissue and bony structures appear normal. LEFT SHOULDER: Normal bone mineralization. No fracture, dislocation, or suspicious bone lesion. Normal alignment. The glenohumeral joint demonstrates mild degenerative arthritis. The AC joint demonstrates moderate spurring, predominantly superior surface. There is a 2 acromion. No undersurface spurring. The subacromial space is preserved. Remainder of the soft tissue and bony structures appear normal. XR/XR Shoulder Brian min 2V IMPRESSION: 1. No acute finding of either shoulder. 2. 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 3. 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 Electronically signed by: Peyman Panda MD 11/09/2025 02:29 PM [facility] Dictated By: Peyman Panda MD Signed By: <Electronically signed by Peyman Panda MD in OV> 11/09/25 1429 DD/ 1326 TD/TT: 11/09/25 1333 Emergency Medical Tech: [facility] External Provider IMG XR PROCEDURES Final Result documented in this encounter Visit Diagnoses Not on filedocumented in this encounter Additional Health Concerns Assessment Noted Time PHQ-9 Depression Total Score: 1 01/29/20 25 2:27 PM EDT documented as of this encounter Care Teams Electric Motor Repairing Supervisor Relationship Specialty Start Date End Date Maryana Winkler MD [address] [place] [phone] PCP - General Family Medicine 11/12/18 documented as of this encounter
--- OUTSIDE RECORDS SUMMARY | 2025-11-09 15:24 | XMS_ITS | Encounter Summary ---
Author Organization [employer] Address [address] [facility] 7t [place] [address] Care Team Providers Care Carpet Renovator Name Role Phone Maryana Winkler MD Primary Care Provider [phone] Reason for Visit * Reason Onset Date Comments Appointment Request 01/19/2025 Encounter Details Date Type Department Care Team ([facility] st Contact Info) Description 01/19/2025 Telephone [facility] MEDICINE [address] [place], [place] [phone] Maryana Winkler MD [address] [place], [place] [phone] Appointment Request Social History Tobacco Use Types [...] appt with PCP. Reports was admitted at [facility] 01/10-01/15 for anaphylactic shock after consuming suzie [...] Description 11/26/2025 10:15 AM EST Office Visit [facility] MEDICINE [address] [place] [address] Maryana Winkler MD [address] [place] [address] 04/22/2026 8:45 AM EDT Office Visit [facility] ADULT DENTAL [address] [place] [address] Enid Henry [address] [place] [address] documented as of this encounter Visit Diagnoses Not on filedocumented in this encounter Additional Health Concerns Assessment Noted Time PHQ-9 Depression Total Score: 13 024 11:34 AM EST documented as of this encounter Care Teams Carpet Renovator Relationship Specialty Start Date End Date Maryana Winkler MD [address] [place] [address] PCP - General Family Medicine 11/12/18 documented as of this encounter
--- OUTSIDE RECORDS SUMMARY | 2025-11-09 15:24 | XMS_ITS | Encounter Summary ---
Author Organization [employer] Address [address] [place] [address] 7t [place] [address] Care Team Providers Care Body And Fender Mechanic Apprentice Name Role Phone Maryana Winkler MD Primary Care Provider Encounter Details Date Type Department Care Team (Late Contact Info) Description 07/17/2023 Abstract [facility] MEDICINE [address] [place] [address] [phone] Maryana Winkler MD [address] [place] [address] [phone] Social History Tobacco Use Types Packs/Day Years [...] Description 11/26/2025 10:15 AM EST Office Visit [facility] MEDICINE [address] [place] [address] [phone] Maryana Winkler MD [address] [place] [address] [phone] 04/22/2026 8:45 AM EDT Office Visit [facility] ADULT DENTAL [address] [place] [address] Werner Henryaris [address] [place] [address] documented as of this encounter Visit Diagnoses Not on filedocumented in this encounter Additional Health Concerns Assessment Noted Time PHQ-9 Depression Total Score: 4 12/14/19 23 9:31 AM EST documented as of this encounter Care Teams Body And Fender Mechanic Apprentice Relationship Specialty Start Date End Date Maryana Winkler MD [address] [place] [address] PCP - General Family Medicine 11/12/18 documented as of this encounter
--- OUTSIDE RECORDS SUMMARY | 2025-11-09 15:24 | XMS_ITS | Encounter Summary ---
Author Organization [employer] Address [address] [facility] 7t [place] [address] Care Team Providers Care Small Package And Bundle Sorter Clerk Name Role Phone Maryana Winkler MD Primary Care Provider [phone] Encounter Details Date Type Department Care Team ([facility] st Contact Info) Description 11/18/2024 Orders Only [facility] MEDICINE [address] [place] [address] ProviderCristopher MD Social History Tobacco Use Types [...] the past 12 months, has t he [employer], gas, oil or water I[employer] threatened to shut off services in your [...] Description 11/26/2025 10:15 AM EST Office Visit [facility] MEDICINE [address] [place] [address] Maryana Winkler MD [address] [place] [address] 04/22/2026 8:45 AM EDT Office Visit [facility] ADULT DENTAL [address] [place] [address] Carl, [place] [address] [place] [address] documented as of this encounter Procedures Procedure [...] documented as of this encounter Care Teams Small Package And Bundle Sorter Clerk Relationship Specialty Start Date End Date Maryana Winkler MD [address] [place] [phone] PCP - General Family Medicine 11/12/18 documented as of this encounter
--- OUTSIDE RECORDS SUMMARY | 2025-11-09 15:24 | XMS_ITS | Encounter Summary ---
Author Organization [employer] Address [address] [place] [address] 7 [place] [address] Care Team Providers Care Machinist Mate Name Role Phone Maryana Winkler MD Primary Care Provider [phone] Encounter Details Date Type Department Care Team (Latest Contact Info) Description 03/16/2021 Abstract [facility] CONVERSIONS Dental, Provider, DDS Social History Tobacco [...] Description 11/26/2025 10:15 AM EST Office Visit [facility] MEDICINE [address] [place] [phone] Maryana Winkler MD [address] [place] [address] 04/22/2026 8:45 AM EDT Office Visit [facility] ADULT DENTAL [address] [place] [address] Enid Henry [address] [place] [address] documented as of this encounter Visit Diagnoses Not on filedocumented in this encounter Care Teams Machinist Mate Relationship Specialty Start Date End Date Maryana Winkler MD [address] [place] [address] PCP - General Family Medicine 11/12/18 documented as of this encounter
--- OUTSIDE RECORDS SUMMARY | 2025-11-09 15:24 | XMS_ITS | Encounter Summary ---
Author Organization [employer] Address [address] [place] [address] 7t [place] [address] Care Team Providers Care Shrinker Name Role Phone Maryana Winkler MD Primary Care Provider [phone] Encounter Details Date Type Department Care Team (Late st Contact Info) Description 05/23/2023 Orders Only [facility] MEDICINE [address] [place] [address] [phone] ProviderCristopher MD Social History Tobacco Use Types [...] Description 11/26/2025 10:15 AM EST Office Visit [facility] MEDICINE [address] [place] [address] [phone] Maryana Winkler MD [address] [place] [address] [phone] 04/22/2026 8:45 AM EDT Office Visit [facility] ADULT DENTAL [address] [facility] [place] [address] Enid Henry [address] [facility] [place] [address] documented as of this encounter Procedures Procedure [...] EST) Vitamin D, 25-OH, D2 6 ng/mL [facility] Comment:This test was develo ped and its analytical performancecharacteristics have been determined by [employer] [place], [place]. It hasnot been cleared or approved by the U.S. Food and DrugAdministration. This assay has been validated pursuantto the CLIA regulations and is used for clinicalpurposes.THIS TEST WAS PERFORMED AT:[employer] [place] [address]UNZONNPASM WELLS MD,PHD Vitamin D, 25-OH, D3 20 ng/mL [facility] Comment:This test was domi valera and its analytical performancecharacteristics have been determined by [employer] [place], [place]. It hasnot been cleared or approved by the U.S. Food and DrugAdministration. This assay has been validated pursuantto the CLIA regulations and is used for clinicalpurposes. Vitamin D, 25-OH, Total 26(A) 30 - 100 ng/mL [facility] Comment:Vitamin D, 25-Hydrox y reports [...] = 30 ng/mL.For additional information, please refer tohttp://education.Diana/faq/ZHM137(This link is being provided for informational/educational purposes only.) 01/16/2024 8:44 AM EST 01/16/2024 11:23 AM EST us Generic External Data Provider LAB BLOOD ORDERAB LES Final Result Performing Organization Address [facility]/ZIP Co de Phone Number [facility] [address] [place] [phone] * Urine electrolytes (12/20/2023 10:49 PM EST) Chloride Urine Random <20.0 mmol/L [facility] Sodium Urine Random 44.0 mmol/L [facility] Potassium Urine Random 7.7 mmol/L [facility] 12/20/2023 10:4 9 PM EST 12/20/2023 10:53 PM EST Generic External Data Provider LAB URINE ORDERAB LES Final Result [facility] [address] [place] [address] [phone] * Urinalysis w/reflex microscopic (12/20/2023 10:49 PM EST) Color Urine Yellow [facility] Appearance Urine Clear [facility] PH 8.0 5.0 - 9.0 [facility] Glucose Urine UA Negative Negative mg/dL [facility] Urine Blood Negative Negative [facility] Specific [place] - Urine 1.010 1.005 - 1.025 [facility] Urine Protein Negative Neg-Trace mg/dL [facility] Urine Ketones Negative Negative mg/dL [facility] Nitrite Urine Negative Negative [facility] Leukocyte Esterase Urine Negative Negative [facility] 12/20/2023 10:4 9 PM EST 12/20/2023 10:53 PM EST Narrative [facility] - 12/20/2023 10:56 PM EST [id number], Clean Catch us Generic External Data Provider LAB URINE ORDERAB LES Final Result Performing Organization Address City/[facility] Co de Phone Number [facility] [address] [place] [phone] * Electrolyte Panel (12/20/2023 10:40 PM EST) Sodium 139 135 - 145 mmol/L [facility] Potassium 3.4 3.3 - 5.1 mmol/L [facility] Chloride 103 96 - 108 mmol/L [facility] Carbon Dioxide 27 22 - 29 mmol/L [facility] Anion Gap 12 12 - 20 [facility] 12/20/2023 10:4 0 PM EST 12/20/2023 10:43 PM EST us Generic External Data Provider LAB BLOOD ORDERAB LES Final Result Performing Organization Address City/[facility]/ZIP Co de Phone Number [facility] [address] [place] [address] [place] [phone] * Magnesium (12/20/2023 4:46 PM EST) Magnesium 2.1 1.6 - 2.6 mg/dL [facility] 12/20/2023 4:46 PM EST 12/20/2023 4:49 PM EST us Generic External Data Provider LAB BLOOD ORDERAB LES Final Result [facility] [address] [place] [address] [phone] * (ABNORMAL) Comprehensive Metabolic Panel (12/20/2023 4:46 PM EST) Sodium 136 135 - 145 mmol/L [facility] Potassium 2.6(LL) 3.3 - 5.1 mmol/L [facility] Comment:Critical value for t est(s): POTS Results called to and readback by: JAYLAN Person calling: SALIERD Date: 12/20/23 Time:1707 Chloride 98 96 - 108 mmol/L [facility] Carbon Dioxide 28 22 - 29 mmol/L [facility] Anion Gap 13 12 - 20 [facility] Urea Nitrogen (BUN) 10 9 - 16 mg/dL [facility] Creatinine, Serum 0.84 0.5 - 1.4 mg/dL [facility] Creatinine Clr Calc Pharmacy 49.1 [facility] Comment:Provided height and weight: 149.86 cm,49.5 kg.eGFR (calculated from the MDRD study equation) and eCrCl(calculated from the Cockcroft-Gault equation) are based ondifferent parameters and may not yield comparable results.If eCrCl result is absurd, please check patient'sheight/weight. Estimated Glomerular Filt Rate >60 [facility] Comment:NOTE: For -Am erican individuals, multiply the result by 1.210.Chronic Kidney Disease: Estimated GFR < 60 mL/min/1.83b1Aahhxa Kidney Disease: Estimated GFR < 15 mL/min/1.73m2 Glucose 155(H) 60 - 115 mg/dL [facility] Calcium 9.2 8.4 - 10.2 mg/dL [facility] Bilirubin, Total 0.4 0.0 - 1.0 mg/dL [facility] Aspartate Amino Transferase 24 5 - 31 U/L [facility] Alanine Aminotransferase 14 0 - 31 U/L [facility] Total Protein 7.3 6.5 - 8.0 g/dL [facility] Albumin Level 4.1 3.5 - 5.0 g/dL [facility] Alkaline Phosphatase 72 39 - 117 U/L [facility] 12/20/2023 4:46 PM EST 12/20/2023 4:49 PM EST us Generic External Data Provider LAB BLOOD ORDERAB LES Final Result Performing Organization Address City/State/[facility] Co de Phone Number [facility] [address] [place] [phone] * (ABNORMAL) CBC auto differential (12/20/2023 4:46 PM EST) White Blood Count 6.9 4.8 - 10.8 X10*3/uL [facility] Red Blood Count 4.79 4.20 - 5.50 X10*6/uL [facility] Hemoglobin 14.7 12.0 - 16.0 g/dl [facility] Hematocrit 41.3 37.0 - 47.0 % [facility] Mean Corpuscular Volume 86.2 80.0 - 98.0 fL [facility] Mean Corpuscular Hemoglobin 30.7 27.0 - 33.0 pg [facility] Mean Corpuscular HGB Conc 35.6(H) 31.0 - 35.0 g/dl [facility] Red Cell Distribution Width 12.7 11.0 - 16.0 % [facility] Platelet Count 158(L) 160 - 400 X10*3/uL [facility] Mean Platelet Volume 9.4 9.4 - 12.3 fL [facility] Neutrophils Percent Auto 57.1 45 - 73 % [facility] Imm Gran Pct Auto 0.1 0.0 - 0.4 % [facility] Lymphocytes Percent Auto 33.5 20 - 40 % [facility] Monocytes Percent Auto 6.8 2 - 11 % [facility] Eosinophils Percent Auto 1.9 0 - 4 % [facility] Basophils Percent Auto 0.6 0 - 2 % [facility] NRBC Pct Auto 0.0 0.0 - 0.2 /100WBC [facility] Neutrophils Absolute Auto 4.0 2.0 - 8.3 x10*3/uL [facility] Imm Gran Abs Auto 0.01 0.00 - 0.03 X10*3/uL [facility] Lymphocytes Absolute Auto 2.3 1.2 - 4.9 X10*3/uL [facility] Monocytes Absolute Auto 0.5 0.1 - 1.2 X10*3/uL [facility] Eosinophils Absolute Auto 0.1 0.0 - 0.4 X10*3/uL [facility] Basophils Absolute Auto 0.0 0.0 - 0.2 X10*3/uL [facility] NRBC Abs Auto 0.000 0.0 - 0.012 X10*3/uL [facility] 12/20/2023 4:46 PM EST 12/20/2023 4:49 PM EST us Generic External Data Provider LAB BLOOD ORDERAB LES Final Result [facility] [address] [place] [phone] * US Abdomen Complete (05/23/2023 9:54 AM EDT) Anatomical Region Laterality Modality Abdomen Ultrasound 05/23/2023 9:54 AM EDT Narrative 05/26/2023 12:12 PM EDT [address] [address] Ultrasound Report Signed Patient: Tiffany Vergara MR#: [id number] 91 : 1965 Acct:[id number] Age/Sex: 58 / F ADM Date: 05/23/23 Loc: HO.US Attending Dr: Maryana Winkler MD Ordering Physician: Maryana Winkler MD Date of Service: 05/23/23 Procedure(s): US abdomen complete Accession Number(s): [id number] cc: Maryana Winkler MD EXAMINATION: US ABDOMEN [...] in OV> 05/26/23 1209 DD/ 0954 TD/TT: Mortuary Operations Manager: CORBY Procedure Note Donotuseinterpreter, Image - 05/26/2023 [place] [address] Ultrasound Report Signed Patient: Tiffany Vergara MMR#: [id number] 91 : 1965Acct:[id number] Age/Sex: 58 / FADM Date: 05/23/23 Loc: HO.US Attending Dr: Maryana Winkler MD Ordering Physician: Maryana Winkler MD Date of Service: 05/23/23 Procedure(s): US abdomen complete Accession Number(s): [id number] cc: Maryana Winkler MD EXAMINATION: US ABDOMEN [...] in OV> 05/26/23 1209 DD/ 0954 TD/TT: Mortuary Operations Manager: CORBY [facility] External Provider IMG US PROCEDURES Edited Result - Final * Hm Mammography (04/03/2023) Anatomical Region Laterality Modality Other Historical Provider HEALTH MAINTENANCE Final Result documented in this encounter Visit Diagnoses Not on filedocumented in this encounter Additional Health Concerns Assessment Noted Time PHQ-9 Depression Total Score: 4 12/14/19 23 9:31 AM EST documented as of this encounter Care Teams Shrinker Relationship Specialty Start Date End Date Maryana Winkler MD [address] [place] [address] PCP - General Family Medicine 11/12/18 documented as of this encounter
--- OUTSIDE RECORDS SUMMARY | 2025-11-09 15:24 | XMS_ITS | Encounter Summary ---
Author Organization [employer] Address [address] [place] [address] 7 [place] [address] Care Team Providers Care Manager Clinical Services Name Role Phone Maryana Winkler MD Primary Care Provider [phone] Encounter Details Date Type Department Care Team (Latest Contact Info) Description 03/27/2019 Abstract [facility] CONVERSIONS Dental, Provider, DDS Social History [...] Description 11/26/2025 10:15 AM EST Office Visit [facility] MEDICINE [address] [place] [phone] Maryana Winkler MD [address] [place] [address] 04/22/2026 8:45 AM EDT Office Visit [facility] ADULT DENTAL [address] [place] [address] Enid Henry [address] [place] [address] documented as of this encounter Visit Diagnoses Not on filedocumented in this encounter Care Teams Manager Clinical Services Relationship Specialty Start Date End Date Maryana Winkler MD [address] [place] [address] PCP - General Family Medicine 11/12/18 documented as of this encounter
--- OUTSIDE RECORDS SUMMARY | 2025-11-09 15:24 | XMS_ITS | Encounter Summary ---
Author Organization [employer] Address [address] [place] [address] 7 [place] [address] Care Team Providers Care Emergency Room Physician Assistant Name Role Phone Maryana Winkler MD Primary Care Provider [phone] Encounter Details Date Type Department Care Team (Latest Contact Info) Description 03/23/2022 Abstract [facility] CONVERSIONS Dental, Provider, DDS Social History Tobacco [...] Description 11/26/2025 10:15 AM EST Office Visit [facility] MEDICINE [address] [place] [id number] Maryana Winkler MD [address] [place] [address] 04/22/2026 8:45 AM EDT Office Visit [facility] ADULT DENTAL [address] [place] [address] Enid Henry [address] [place] [address] documented as of this encounter Visit Diagnoses Not on filedocumented in this encounter Care Teams Emergency Room Physician Assistant Relationship Specialty Start Date End Date Maryana Winkler MD [address] [place] [address] PCP - General Family Medicine 11/12/18 documented as of this encounter
--- OUTSIDE RECORDS SUMMARY | 2025-11-09 15:24 | XMS_ITS | Encounter Summary ---
Author Organization [employer] Address [address] [place] [address] [address] [place] [address] Care Team Providers Care Project Structural Engineer Name Role Phone Maryana Winkler MD Primary Care Provider [phone] Reason for Visit * Reason Comments Med Refill Encounter Details Date Type Department Care Team (Late st Contact Info) Description 07/23/2023 Refill [facility] MED & PEDS [address] [place], [place] [phone] Maryana Winkler MD [address] [place], [place] [phone] Allergic rhinitis, unspecified seasonality, unspecified trigger Social [...] 11/26/2025 10:15 AM EST Office Visit [facility] MEDICINE [address] [place], [place] [phone] Maryana Winkler MD [address] [place] [address] 04/22/2026 8:45 AM EDT Office Visit [facility] ADULT DENTAL [address] [place] [address] Enid Henry [address] [place] [address] documented as of this encounter Visit Diagnoses Diagnosis Allergic rhinitis, unspecified seasonality, unspecified trigger documented in this encounter Additional Health Concerns Assessment Noted Time PHQ-9 Depression Total Score: 4 12/14/19 23 9:31 AM EST documented as of this encounter Care Teams Project Structural Engineer Relationship Specialty Start Date End Date Maryana Winkler MD [address] [place] [address] PCP - General Family Medicine 11/12/18 documented as of this encounter
--- OUTSIDE RECORDS SUMMARY | 2025-11-09 15:24 | XMS_ITS | Encounter Summary ---
Author Organization [employer] Address [address] [facility] [address]t [place] [address] Care Team Providers Care Wash Plant Operator Name Role Phone Maryana Winkler MD Primary Care Provider Encounter Details Date Type Department Care Team ([facility] st Contact Info) Description 01/19/2025 Telephone [facility] MEDICINE [address] [place], [place] [phone] Maryana Winkler MD [address] [place] [address] Social History Tobacco Use Types Packs/Day Years [...] Description 11/26/2025 10:15 AM EST Office Visit [facility] MEDICINE [address] [place] [address] Maryana Winkler MD [address] [place] [address] 04/22/2026 8:45 AM EDT Office Visit [facility] ADULT DENTAL [address] [place] [address] Carl, [place] [address] [place] [address] documented as of this encounter Visit Diagnoses Not on filedocumented in this encounter Additional Health Concerns Assessment Noted Time PHQ-9 Depression Total Score: 13 024 11:34 AM EST documented as of this encounter Care Teams Wash Plant Operator Relationship Specialty Start Date End Date Maryana Winkler MD [address] [place] [address] PCP - General Family Medicine 11/12/18 documented as of this encounter
--- OUTSIDE RECORDS SUMMARY | 2025-11-09 15:24 | XMS_ITS | Encounter Summary ---
Author Organization [employer] Address [address] [facility] [address] [place] [address] Care Team Providers Care Reviewer Sales Name Role Phone Marynaa Winkler MD Primary Care Provider [phone] Encounter Details Date Type Department Care Team ([facility] st Contact Info) Description 04/28/2025 Orders Only [facility] MED & PEDS [address] [place], [place] [phone] ProviderCristopher MD Social History Tobacco Use Types [...] 10:15 AM EST Office Visit [facility] MEDICINE [address] [place] [address] Maryana Winkler MD [address] [place], [place] [phone] 04/22/2026 8:45 AM EDT Office Visit [facility] ADULT DENTAL [address] [place] [address] Werner Henryaris [address] [place] [address] documented as of this encounter Procedures Procedure Name Priority Date/Time Associated Diagnosis Comments XR CHEST 2 VIEWS Routine 05/19/2025 8:30 AM EDT HM MAMMOGRAPHY Routine 04/27/2025 8:52 AM EDT documented in this encounter Results * XR Chest 2 Views (05/19/2025 8:30 AM EDT) Anatomical Region Laterality Modality Chest Radiographic Jalyn ging 05/19/2025 8:30 AM EDT Narrative 05/19/2025 8:48 AM EDT [address] [address] XRay Report Signed Patient: Tiffany Vergara MR#: [id number] 91 : 1965 Acct:[id number] Age/Sex: 60 / F ADM Date: 05/19/25 Loc: [facility] Attending Dr: Leonardo Apple PA-C Ordering Physician: Leonardo Apple PA-C Date of Service: 05/19/25 Procedure(s): XR chest 2V Accession Number(s): [id number] cc: Leonardo Apple PA-C; Maryana Winkler MD [...] 05/19/25 0845 DD/ 0830 TD/TT: 05/19/25 0839 Relationship Associate: Procedure Note Donotuseinterpreter, Image - 05/19/2025 [place] [address] XRay Report Signed Patient: Tiffany Vergara MMR#: [id number] 91 : 1965Acct:[id number] Age/Sex: 60 / FADM Date: 05/19/25 Loc: [facility] Attending Dr: Leonardo Apple PA-C Ordering Physician: Leonardo Apple PA-C Date of Service: 05/19/25 Procedure(s): XR chest 2V Accession Number(s): [id number] cc: Leonardo Apple PA-C; Maryana Winkler MD [...] OV> 05/19/2545 DD/ 9 TD/TT: 05/19/25 0839 Relationship Associate: [facility] External Provider IMG XR PROCEDURES Edited Result - Final * Hm Mammography (04/27/2025 8:52 AM EDT) Anatomical Region Laterality Modality Other Historical Provider HEALTH MAINTENANCE Final Result documented in this encounter Visit Diagnoses Not on filedocumented in this encounter Additional Health Concerns Assessment Noted Time PHQ-9 Depression Total Score: 1 01/29/20 25 2:27 PM EDT documented as of this encounter Care Teams Reviewer Sales Relationship Specialty Start Date End Date Maryana Winkelr MD [address] [place] [address] PCP - General Family Medicine 11/12/18 documented as of this encounter
--- OUTSIDE RECORDS SUMMARY | 2025-11-09 15:24 | XMS_ITS | Clinical Summary ---
Author Organization [employer] Address [address] [place] [address] 7t [place] [address] Care Team Providers Care Field Services Analyst Name Role Phone Maryana Winkler MD Primary Care Provider [phone] Allergies Active Allergy Reactions Criticality Noted Date Comments [facility] Oil Anaphylaxis High 12/07/2023 Suzie Oil (Salvia [...] BY MOUTH EVERY EVENING 90 tablet 3 10/05/20 25 10:12 AM EST 025 Active Diclofenac Sodium 1 % gelIndications: [...] for nightmares 025 Active [facility] BP daily 1 each 025 Active [...] BY MOUTH EVERY MORNING 30 capsule 3 10/05/20 25 10:11 AM EST Active topiramate 50 MG tablet TAKE 1 TABLET BY MOUTH TWICE DAILY IN THE MORNING AND AT BEDTIME 60 tablet 1 10/05/20 25 10:13 AM EST Active gabapentin (Neurontin) 100 MG capsule TAKE 2 CAPSULES BY MOUTH THREE TIMES DAILY IN THE MORNING, EVENING AND BEDTIME 180 capsule Active gabapentin (Neurontin) 100 MG capsule Take 2 capsules (200 mg) by mouth 3 times daily. 180 capsule 2024 Discontinued Active Problems Problem Noted Date Diagnosed Date Bilateral shoulder pain 08/20/2025 Assessment & Plan (08/20/2025 12:42 PM EDT): - refer to orthopedist Discoloration of skin 08/20/2025 Assessment & Plan (08/20/2025 12:49 PM EDT): - under breast - trial of azole antifungal cream Idiopathic urticaria 05/13/2025 Assessment & Plan (05/25/2025 6:13 AM EDT): Following with source water protection specialist Hypotension 02/13/2025 Assessment & Plan (02/13/2025 [...] EDT): - carry epi-pen - referred to source water protection specialist Chronic headache 02/09/2025 Assessment & Plan [...] reduction - continue following with recommendation from [facility] provider Transaminitis 02/09/2025 Overview (07/14/2025): - [...] (05/25/2025 6:10 AM EDT): - Evaluated by source water protection specialist at [facility], most recent visit 04/28/2025. 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 -has apt w [...] -currently in cast -pt would benefit from [employer] services Closed displaced fracture of proximal phalanx [...] Following with [facility] Hook Up Driver, last seen in Jun 2023 -Patient was Prescribed Baclofen as visit - continue baclofen - continue lidoderm patches - continue Diclofenac gel - continue acetaminophen prn - judiciously use Ibuprofen/Motrin/Naproxen - continue Gabapentin - recommended to contact Hook Up Driver regarding MRI Scheduling - Hook Up Driver is planning to place a Peripheral Nerve Stimulator after MRI Scan Assessment & Plan (04/30/2023 7:37 PM EDT): Following with [facility] Hook Up Driver, last seen on 04/02/23 -Patient was Prescribed Baclofen as visit - continue baclofen - continue lidoderm patches - continue Diclofenac gel - continue acetaminophen prn - judiciously use Ibuprofen/Motrin/Naproxen - continue Gabapentin - recommended to contact Hook Up Driver regarding MRI Scheduling - Hook Up Driver is planning to place a Peripheral Nerve [...] Assessment & Plan (11/21/2024 12:25 PM EST): -Energy Control Officer: [facility], last visit in 01/22/24 -referred to orthopedist and structural steel painter -previously taking hydroxychloroquine for 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 Encouraged to continue -Encouraged to try Taichi and Yoga as recommended -Decrease gabapentin from 600 to 400 mg tid Assessment & Plan (07/26/2024 6:57 AM EDT): -Energy Control Officer: [facility], last visit in 01/22/24 -referred to orthopedist and structural steel painter -previously taking hydroxychloroquine for 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 Encouraged to continue -Encouraged to try Taichi and Yoga as recommended Assessment & Plan (03/18/2024 9:37 AM EDT): -Energy Control Officer: [facility], last visit in 01/22/24 -referred to orthopedist and structural steel painter -previously taking hydroxychloroquine for possible inflammatory arthritis (Hx LAZARO and RF positive), and it was discontinued by new repair weaver -Patient was interested in CBD treatment previously -Pt has tried physical therapies several times -patient is attending acupuncture. -Encouraged to try Taichi and Yoga as recommended -Cont attending Acupuncture, since doing well. Assessment & Plan (12/24/2023 5:50 AM EST): -Energy Control Officer: [facility], last visit in 01/18/23 -referred to orthopedist and structural steel painter -previously taking hydroxychloroquine for possible inflammatory arthritis (Hx LAZARO and RF positive), and it was discontinued by new repair weaver -Patient was interested in CBD treatment previously -Pt has tried physical therapies several times -patient is attending acupuncture. -Encouraged to try Taichi and Yoga as recommended -Cont attending Acupuncture, since doing well. Assessment & Plan (04/23/2023 11:54 AM EDT): -Energy Control Officer: [facility], last visit in 01/18/23 -Discontinued Plaquenil -referred to orthopedist and structural steel painter -still taking hydroxychloroquine for possible inflammatory arthritis (Hx LAZARO and RF positive) -Patient was interested in CBD treatment previously -Pt has tried physical therapies several times -patient is attending acupuncture. -Encouraged to try Taichi and Yoga as recommended -Cont attending Acupuncture, since doing well. Assessment & Plan (02/08/2023 1:19 PM EDT): -Energy Control Officer: [facility], last visit in 01/18/23 -Discontinued Plaquenil -referred to orthopedist and structural steel painter -still taking hydroxychloroquine for possible inflammatory [...] 12:27 PM EST): Behavioral health service provider: [facility], Dr. Amaya Continue current medication and treatment plan per Dr. Amaya Asthma 02/19/2014 Assessment & Plan (08/20/2025 12:41 PM EDT): - Seen by her wheel cleaner in Aug 2015. - well-controlled recently - currently on mometasone (Asmanex) for maintenance - Consider SMART with either Symbicort or Dulera - continue montelukast - continue albuterol HFA and DuoNeb prn as rescue. - consider another pulmonary fxn test Assessment & Plan (05/25/2025 6:13 AM EDT): - Seen by her wheel cleaner in Aug 2015. - well-controlled recently - [...] 12:36 PM EST): - Seen by her wheel cleaner in Aug 2015. - well-controlled recently - change Flovent to Asmanex - continue montelukast - continue albuterol HFA and DuoNeb prn as rescue. - consider another pulmonary fxn test or sleep study if pt continue to has dyspnea - follow up in 3-4 mo Assessment & Plan (07/22/2024 9:56 AM EDT): - Seen by her wheel cleaner in Aug 2015. - well-controlled recently - change Flovent to Asmanex - continue montelukast - continue albuterol HFA and DuoNeb prn as rescue. - consider another pulmonary fxn test or sleep study if pt continue to has dyspnea - follow up in 3-4 mo Assessment & Plan (03/18/2024 9:25 AM EDT): - Seen by her wheel cleaner in Aug 2015. - well-controlled recently - change Flovent to Asmanex - continue montelukast - continue albuterol HFA and DuoNeb prn as rescue. - consider another pulmonary fxn test or sleep study if pt continue to has dyspnea - follow up in 3-4 mo Assessment & Plan (12/24/2023 5:37 AM EST): - Seen by her wheel cleaner in Aug 2015. - well-controlled recently - change Flovent to Asmanex - continue montelukast - continue albuterol HFA and DuoNeb prn as rescue. - consider another pulmonary fxn test or sleep study if pt continue to has dyspnea - follow up in 3-4 mo Assessment & Plan (04/30/2023 7:31 PM EDT): - Seen by her wheel cleaner in Aug 2015. - well-controlled recently - continue Flovent to 2 puff twice daily and Singulair as maintenance. - continue albuterol HFA and DuoNeb prn as rescue. - consider another pulmonary fxn test or sleep study if pt continue to has dyspnea - follow up in 3-4 mo Assessment & Plan (02/08/2023 1:35 PM EDT): Seen by her wheel cleaner in Aug 2015. increase Flovent to 2 puff twice daily and Singulair as maintenance. Continue albuterol HFA and DuoNeb prn as rescue. -consider another pulmonary fxn test or sleep study if pt continue to has dyspnea Allergic rhinitis 02/19/2014 Assessment & Plan (05/25/2025 6:10 AM EDT): - continue montelukast and cetirizine - Patient was started following with source water protection specialist due to multiple hypersensitivity reactions Assessment [...] Encounters Date Type Department Care Team Description 11/09/2025 Orders Only [facility] External Provider, [facility] 10/26/2025 Refill [facility] [address] [place] [address] Maryana Winkler MD 10/21/2025 8:00 AM EST Office Visit [facility] [address] [place] [address] CarlEnid Dental plaque (Primary Dx); Localized gingival recession; Xerostomia; Missing teeth, acquired 10/05/2025 9:00 AM EST Office Visit [facility] [address] [place] [phone] Elzbieta Wells MD Fibromyalgia (Primary Dx); Generalized anxiety disorder 10/05/2025 Travel 09/17/2025 9:00 AM EST Office Visit [address] [address] Elzbieta Wells MD Fibromyalgia (Primary Dx); Generalized anxiety disorder 09/17/2025 Travel 09/15/2025 9:00 AM EST Office Visit [address] [address] Elzbieta Wells MD Fibromyalgia (Primary Dx); Generalized anxiety disorder 09/15/2025 [facility]ill [facility] [place] [address] Maryana Winkler MD 09/15/2025 Travel 09/14/2025 Refill [facility] [place] [address] Maryana Winkler MD 08/30/2025 Refill [facility] [place] [address] Maryana Winkler MD 08/27/2025 9:00 AM EDT Office [facility] [place] [address] Elzbieta Wells MD Fibromyalgia (Primary Dx); Generalized anxiety disorder 08/27/2025 Travel 08/18/2025 9:00 AM EDT Office Visit [facility] [place] [address] Elzbieta Wells MD Fibromyalgia (Primary Dx); Generalized anxiety disorder 08/18/2025 Travel 08/12/2025 10:15 AM EDT Office Visit [facility] [place] [address] Maryana Winkler MD Carpal tunnel syndrome of [...] Travel 08/11/2025 9:00 AM EDT Office Visit [facility] [place] [address] Elzbieta Wells MD Fibromyalgia (Primary Dx); Generalized anxiety disorder 08/11/2025 Telephone [facility] [place] [address] Maryana Winkler MD chart prep 08/11/2025 Travel from Last 3 Months Immunizations Immunization [...] Sign Reading Time Taken Comments Blood Pressure 128/74 10/21/2025 8:00 AM EST Pulse 64 08/12/2025 10:21 AM EDT Temperature [...] 11/26/2025 10:15 AM EST Office Visit [facility] [address] [place] [address] Maryana Winkler MD [address] [place] [address] 04/22/2026 8:45 AM EDT Office Visit [facility] [address] [place] [address] Enid Henry [address] [place] [address] Health Maintenance Due Date Last Done Comments CT Colonography 1964 FIT DNA/Cologuard 1965 FIT 1965 FOBT 1965 Sigmoidoscopy 1965 RSV Patients and Patients Aged 60 years or older (1 - Risk 50-74 years 1-dose series) 2014 Pap Smear 01/16/2025 01/16/2022 COVID-19 Vaccine ( season) 2025 12/18/2023, 12/14/2022, 02/21/2022, Additional history exists Dental Oral Exam 10/11/2025 04/09/2025, , 03/29/2023, Additional history exists Depression Screening 01/28/2026 01/28/2025, 01/29/20 SDOH Screening 01/28/2026 01/28/2025 Dental X-Ray: Bitewings 04/10/2026 04/09/20 25, 03/29/2023, 03/23/2022, Additional history exists Dental Prophylaxis 04/22/2026 10/21/2025, 0 04/09/2025, 07/15/2024, Additional history exists Diagnostic Breast Imaging 04/28/20262024, 04/27/2025, 10/27/2024, Additional history exists Mammogram 04/28/2026 10/28/2025, 04/12, 10/27/2024, Additional history exists Colonoscopy 2026 2016 Colorectal Cancer Screening 2026 Disability Screening 05/13/2026 05/13/2025 Alcohol/Substance Use Screening 08/12/2026 08/12/2025 Tobacco Screening 10/21/2026 10/21/2025 Cervical Cancer Screening 01/16/2027 HPV/Cotest 01/16/2027 01/16/2022 [...] VIEWS BILATERAL Routine 11/09/2025 1:26 PM EST HM MAMMOGRAPHY Routine 10/28/2025 Full TOPICAL APPLICATION OF FLUORIDE VARNISH Routine 10/21/2025 8:00 AM EST Dental plaque Localized gingival recession Xerostomia Missing teeth, acquired CASE PRESENTATION, DETAILED AND EXTENSIVE TREATMENT PLANNING Routine 10/21/2025 8:00 AM EST Dental plaque Localized gingival recession Xerostomia Missing teeth, acquired ORAL HYGIENE INSTRUCTIONS Routine 10/21/2025 8:00 AM EST Dental plaque Localized gingival recession Xerostomia Missing teeth, acquired PROPHYLAXIS - ADULT Routine 10/21/2025 8 :00 AM EST Dental plaque Localized gingival recession Xerostomia Missing teeth, acquired INTRAORAL - COMPLETE SERIES OF RADIOGRAPHIC IMAGES [...] Relevant to Health Maintenance Results * XR Shoulder 2+ Views Bilateral (11/09/2025 1:26 PM EST) Anatomical Region Laterality Modality Upper Extremities, Shoulder Bilateral Radi ographic Imaging 11/09/2025 1:26 PM EST Narrative 11/09/2025 2:32 PM EST [facility] [address] [place] [address] Drive [address] [place] [address] XRay Report Signed Patient: Tiffany Vergara MR#: [id number] 91 : 1965 Acct:[id number] Age/Sex: 60 / F ADM Date: 11/09/25 Loc: HO.HOSX Attending Dr: Rahul Brower MD Ordering Physician: Rahul Brower MD Date of Service: 11/09/25 Procedure(s): XR Shoulder Iron min 2V Accession Number(s): [id number] cc: Rahul Brower MD; Maryana Winkler MD Reason for Exam: M25.511 - Pain in right shoulder EXAMINATION: XR SHOULDER, IRON 2V CLINICAL INFORMATION: M25.511 - Pain in [...] and bony structures appear normal. XR/XR Shoulder Iron min 2V IMPRESSION: 1. No acute finding of either shoulder. 2. 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 3. 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 Electronically signed by: Peyman Panda MD 11/09/2025 02:29 PM [facility] Dictated By: Peyman Panda MD Signed By: <Electronically signed by Peyman Panda MD in OV> 11/09/25 1429 DD/ 1326 TD/TT: 11/09/25 1333 Wood Type Cutter: Procedure Note Donotuseinterpreter, Image - 11/09/2025 [facility] [address] [place] [address] [place] [id number] XRay Report Signed Patient: Tiffany Vergara MMR#: [id number] 91 : 1965Acct:[id number] Age/Sex: 60 / FADM Date: 11/09/25 [facility] Attending Dr: Rahul Brower MD Ordering Physician: Rahul Brower MD Date of Service: 11/09/25 Procedure(s): XR Shoulder Iron min 2V Accession Number(s): [id number] cc: Rahul Brower MD; Maryana Winkler MD Reason for Exam: M25.511 - Pain in right shoulder EXAMINATION: XR SHOULDER, IRON 2V CLINICAL INFORMATION: M25.511 - Pain in [...] and bony structures appear normal. XR/XR Shoulder Iron min 2V IMPRESSION: 1. No acute finding of either shoulder. 2. 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 3. 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 Electronically signed by: Peyman Panda MD 11/09/2025 02:29 PM [facility] Dictated By: Peyman Panda MD Signed By: <Electronically signed by Peyman Panda MD in OV> 11/09/25 1429 DD/ 1326 TD/TT: 11/09/25 1333 Wood Type Cutter: [facility] External Provider IMG XR PROCEDURES Final Result * (ABNORMAL) Mammography (10/28/2025) Pathologist [facility] Mammogram BIRADS 3(A) Normal, Abnormal, BIRADS 1 , BIRADS 2 Anatomical Region Laterality Modality Other [facility] Provider HEALTH MAINTENANCE Final Result * (ABNORMAL) Lipid Panel with Reflex to Direct LDL (07/22/2024 10:19 AM EDT) Triglycerides 70 <150 mg/dL [facility] Comment:Desirable Triglyceri de: less than 150 mg/dLBorderline High Triglyceride 150-199 mg/dLHigh Triglyceride: 200-499 mg/dLVery High Triglyceride: greater than or equal to 5OO mg/dL Cholesterol 248(H) <200 mg/dL [facility] Comment:Desirable Cholestero l: less than 200 mg/dLBorderline High Cholesterol: 200-239 mg/dLHigh Cholesterol: greater than 239 mg/dL LDL Cholesterol Calculated 140(H) <100 mg/dL [facility] Comment:Desirable LDL: less than 100 mg/dLNear Optimal/Above Optimal LDL: 110- 129 mg/dLBorderline High LDL: 130-159 mg/dLHigh LDL: 160-189 mg/dLVery High LDL: greater than or equal to 190 mg/dL HDL Cholesterol 94 >40 mg/dL [facility] Comment:Desirable HDL: great er than 40 mg/dL Note: This HDL assay may give artificially low results in patients with liver disease. Blood 07/22/2024 10:1 9 AM EDT 07/22/2024 11:09 AM EDT us Maryana Winkler MD LAB BLOOD ORDERABLES Final Resul t [facility] [address] [place] [phone] * THINPREP TIS PAP AND HPV mRNA E6/E7, CT/NG, TRICH (01/16/2022 1:29 PM EST) Chlamydia trachomatis RNA, TMA, Urogenital NOT DETECTED NOT DETECTED [facility] Clinical Information: None given [facility] COMMENT SEE COMMENT [facility] Comment: The analytical performance characteristics of this assay, when used to test SurePath(TM) specimens have been determined by [employer]. The modifications have not been cleared or approved by the FDA. This assay has been validated pursuant to the CLIA regulations and is used for clinical purposes. For additional information, please refer to https://education.Arteris/faq/ETK442 (This link is being provided for information/ [...] along with historic and current clinical information. Comment: This Pap test has been evaluated with computer assisted technology. [facility] Thermodynamicist: SEE COMMENT [facility] Comment: RXB, CT(ASCP) CT screening location: [place] [address] HPV nRNA E6/E7 Not Detected Not Detected [facility] Comment: Methodology: Gas Scrubber Operator-Mediated Amplification This assay detects E6/E7 viral messenger RNA (mRNA) from 14 high-risk HPV types (16,18,31,33,35,39,45,51,52,56,58,59,66,68). The analytical performance characteristics of this assay have been determined by [employer]. The modifications have not been cleared or approved by the FDA. This assay has been validated pursuant to the CLIA regulations and is used for clinical purposes. For additional information, please refer to http://Doctors Together.Arteris/faq/BZM471p1 (This link if provided for information/ educational [...] SYSTEM Statement Of Adequacy: SEE COMMENT [facility] Comment: Satisfactory for evaluation. Endocervical/transformation zone component absent. Age and/or menstrual status not provided Trichomonas vaginalis, QL, TMA, PAP Vial NOT DETECTED NOT DETECTED [facility] Comment: The analytical performance characteristics of this assay have been determined by [employer]. The modifications have not been cleared or approved by the FDA. This assay has been validated pursuant to the CLIA regulations and is used for clinical purposes. For additional information, please refer to http://[employer]ctors Together.Arteris/ faq/Trichomonastma (This link is being provided for information/ educational purposes only.) 01/16/2022 1:29 PM EST Maryana Winkler MD LAB PATHOLOGY ORDERABLES Final R esult [facility] [address] [place] [address], * HEPATITIS C AB W/REFL TO HCV RNA, QN, PCR (10/24/2021 8:20 AM EST) HEPATITIS C ANTIBODY NON-REACT IMTIAZ NON-REACT IMTIAZ [facility] INDEX 0.02 <1.00 [facility] Comment: HCV antibody was non-reactive. There is no laboratory evidence of HCV infection. In most cases, no further action is required. However, if recent HCV exposure is suspected, a test for HCV RNA (test code 07198) is suggested. For additional information please refer to http://Doctors Together.Arteris/faq/GJJ56l6 (This link is being provided for informational/ educational purposes only.) 10/24/2021 8:20 AM EST Maryana Winkler MD HISTORICAL/NON ORDERABLE LABS Fi nal Result Performing Organization Address [facility] Phone Number [facility] [address] * HIV 1/2 ANTIGEN/ANTIBODY,FOURTH GENERATION W/RFL (10/24/2021 8:20 AM EST) Pathologist [facility] HIV-1/2 ANTIGEN AND ANTIBODIES, 4TH GENERATION W/ REFLEX NON-REACT IMTIAZ NON-REACT IMTIAZ [facility] Comment: HIV-1 antigen and [...] purpose. For additional information please refer to http://Doctors Together.Arteris/faq/VES435 (This link is being provided for informational/ educational purposes only.) The performance of this assay has not been clinically validated in patients less than 2 years old. 10/24/2021 8:20 AM EST Maryana Winkler MD LAB BLOOD ORDERABLES Final Resul t [facility] [address] * (ABNORMAL) Colonoscopy (2016) Colonoscopy Normal(A) Normal 2016 Estee Smith [facility] Edited Result - Final from Last 3 Months or Most Recently Relevant to Health Maintenance Insurance DENTAL [facility] Member Subscriber Plan / Payer (Ef fective 2018-Present) Name:Tiffany Vergara Relation to Subscriber:Self Name:Tiffany Vergara Payer ID:[id number] (NAIC) Group ID:[id number] Type:Not on file Address: [address] ONE CARE < 65 DENTAL [facility] [employer] Advance Directives Documents on File Type Date Recorded Patient Video Technician Expl anation HealthCare Proxy 03/12/2023 Health Care Proxy Form Care Teams Field Services Analyst Relationship Specialty Start Date End Date Maryana Winkler MD [address] [place] [phone] PCP - General Family Medicine 11/12/18
--- OUTSIDE RECORDS SUMMARY | 2025-11-09 15:24 | XMS_ITS | Encounter Summary ---
Author Organization [employer] Address [address] [facility] [address] [place] [address] Care Team Providers Care Manager Contract Name Role Phone Maryana Winkler MD Primary Care Provider [phone] Encounter Details Date Type Department Care Team ([facility] st Contact Info) Description 01/11/2025 Orders Only [facility] [address] [place], [place] [phone] Maryana Winkler MD [address] [place] [address] Acute right ankle pain Social History Tobacco [...] Description 11/26/2025 10:15 AM EST Office Visit [facility] [address] [place] [address] Maryana Winkler MD [address] [place] [address] 04/22/2026 8:45 AM EDT Office Visit [facility] [address] [place] [address] Carl, [place] [address] [place] [address] documented as of this encounter Visit Diagnoses Diagnosis Acute right ankle pain documented in this encounter Additional Health Concerns Assessment Noted Time PHQ-9 Depression Total Score: 13 024 11:34 AM EST documented as of this encounter Care Teams Manager Contract Relationship Specialty Start Date End Date Maryana Winkler MD [address] [place] [phone] PCP - General Family Medicine 11/12/18 documented as of this encounter
--- OUTSIDE RECORDS SUMMARY | 2025-11-09 15:25 | XMS_ITS | Encounter Summary ---
Author Organization [employer] Address [address] [facility] [address] [place] [address] Care Team Providers Care Roofer Name Role Phone Maryana Winkler MD Primary Care Provider [phone] Reason for Visit * Reason Comments Med Refill Encounter Details Date Type Department Care Team ([facility] st Contact Info) Description 08/02/2024 Refill [facility] MEDICINE [address] [place], [place] [phone] Maryana Winkler MD [address] [place], [place] [phone] Social History Tobacco Use Types Packs/Day Years [...] Description 11/26/2025 10:15 AM EST Office Visit [facility] MEDICINE [address] [place] [address] Maryana Winkler MD [address] [place] [address] 04/22/2026 8:45 AM EDT Office Visit [facility] ADULT DENTAL [address] [place] [address] Werner Henryaris [address] [place] [address] documented as of this encounter Visit Diagnoses Not on filedocumented in this encounter Additional Health Concerns Assessment Noted Time PHQ-9 Depression Total Score: 13 024 11:34 AM EST documented as of this encounter Care Teams Roofer Relationship Specialty Start Date End Date Maryana Winkler MD [address] [place] [id number] PCP - General Family Medicine 11/12/18 documented as of this encounter
--- OUTSIDE RECORDS SUMMARY | 2025-11-09 15:25 | XMS_ITS | Encounter Summary ---
Author Organization [employer] Address [address] [facility] [address] [place] [address] Care Team Providers Care Fire Protection Engineering Technician Name Role Phone Maryana Winkler MD Primary Care Provider [phone] Reason for Visit * Reason Comments Med Refill Encounter Details Date Type Department Care Team ([facility] st Contact Info) Description 08/13/[address] [facility] MEDICINE [address] [place], [place] [phone] Maryana Winkler MD [address] [place], [place] [phone] Social History Tobacco Use Types Packs/Day Years [...] Description 11/26/2025 10:15 AM EST Office Visit [facility] MEDICINE [address] [place] [address] Maryana Winkler MD [address] [place] [address] 04/22/2026 8:45 AM EDT Office Visit [facility] ADULT DENTAL [address] [place] [address] Werner [address] [place] [address] documented as of this encounter Visit Diagnoses Not on filedocumented in this encounter Additional Health Concerns Assessment Noted Time PHQ-9 Depression Total Score: 13 024 11:34 AM EST documented as of this encounter Care Teams Fire Protection Engineering Technician Relationship Specialty Start Date End Date Maryana Winkler MD [address] [place] [id number] PCP - General Family Medicine 11/12/18 documented as of this encounter
== END 2025-11-09 14:03 | disposition home or self-care (01) ==
LOC: HO.HOS 13:21
PROVIDERS: PCP Family Medicine; Visit Provider Orthopaedic Surgery
DX: M25.312 Other instability, left shoulder (principal)
CPT/HCPCS: 99213; G2211

== ENCOUNTER → 2025-11-09 13:26 | Outpatient (BNV) | payer OTHER, SELFPAY | PROVIDERS: PCP Family Medicine; Visit Provider Radiology Diagnostic Radiology | DX: M19.011 Primary osteoarthritis, right shoulder (principal); M19.012 Primary osteoarthritis, left shoulder | CPT/HCPCS: 73030 ==